=== PATIENT | male | born 1935 | race Caucasian/White ===

== ENCOUNTER 2017-06-19 10:29 | Inpatient (IN) | payer MEDICARE ==
[2017-06-19] MEDS: IV NORMAL SALINE 1000ML BAG 1,000 ML IV ×2 (11:24→12:27)
[2017-06-19] MEDS: ONDANSETRON PF 4 MG/2 ML VIAL. IV (11:25)
[2017-06-19] MEDS: FAMOTIDINE 20 MG/2 ML VIAL IVP (11:26)
[2017-06-19 11:44] LABS: LACTIC ACID 2.7 mmol/L (0.4-2.0)
[2017-06-19 11:49] LABS: FECAL OB PT NEGATIVE (NEG); NEG OBC FOB NEG; POS OBC FOB POS
[2017-06-19 12:03] LABS: ADD MAN DIFF? YES; BASO # 0.1 x10^3/uL (0.0-0.2); BASO % 0 % (0-3); EOS % 0 % (0-3); HEMATOCRIT 37.4 % (39.0-53.0); HEMOGLOBIN 11.6 g/dL (13.0-17.5); LYMPH % 4 % (24-48); MEAN CORPUSCULAR HEMOGLOBIN 23 pg (25-35); MEAN CORPUSCULAR HGB CONC 31 g/dL (31-37); MEAN CORPUSCULAR VOLUME 75 fL (79-100); MONO % 4 % (0-9); NEUT # 23.4 x10^3uL (1.8-7.7); NEUT % 92 % (31-73); PLATELET COUNT 731 x10^3/uL (140-400); RED BLOOD COUNT 4.99 x10^6/uL (4.30-5.70); RED CELL DISTRIBUTION WIDTH 17.2 % (11.5-14.5); WHITE BLOOD COUNT 25.6 x10^3/uL (4.0-11.0)
[2017-06-19 12:10] LABS: INR 1.2 (0.8-1.1); PROTHROMBIN TIME PATIENT 14.4 SEC (11.7-14.0)
[2017-06-19 12:11] LABS: ANION GAP 18 (6-14); BLOOD UREA NITROGEN 62 mg/dL (8-26); BUN/CREATININE RATIO 31 (6-20); CALCIUM 10.2 mg/dL (8.5-10.1); CARBON DIOXIDE 26 mmol/L (21-32); CHLORIDE 106 mmol/L (98-107); GFR 32.2; GLUCOSE 133 mg/dL (70-99); POTASSIUM 3.2 mmol/L (3.5-5.1); SODIUM 150 mmol/L (136-145)
[2017-06-19 12:17] LABS: ALBUMIN 3.5 g/dL (3.4-5.0); ALBUMIN/GLOBULIN RATIO 0.7 (1.0-1.7); ALK PHOS 110 U/L (46-116); ALT (SGPT) 40 U/L (16-63); AST (SGOT) 51 U/L (15-37); LIPASE 121 U/L (73-393); TOTAL BILIRUBIN 0.6 mg/dL (0.2-1.0); TOTAL PROTEIN 8.7 g/dL (6.4-8.2)
[2017-06-19 12:20] LABS: TROPONINI 0.179 ng/mL (0.000-0.055)
[2017-06-19 12:23] LABS: NT-PRO BNP 614 pg/mL (0-449)
[2017-06-19 12:30] LABS: % BANDS 7 % (0-9); % LYMPHS 3 % (24-48); % MONOS 6 % (0-10); % SEGS 84 % (35-66)
[2017-06-19 12:31] LABS: PLT ESTIMATE INCREASED (ADEQUATE)
[2017-06-19 12:32] LABS: ANISOCYTOSIS SLIGHT; HYPOCHROMIA SLIGHT; POLYCHROMASIA SLIGHT
[2017-06-19 12:36] LABS: MICROCYTOSIS PRESENT
[2017-06-19 12:37] LABS: OVALOCYTES PRESENT; SCHISTOCYTES OCC
[2017-06-19] MEDS ORDERED: ONDANSETRON PF 4 MG/2 ML VIAL. IV ×2 (13:30→15:45)
[2017-06-19] MEDS ORDERED: IV DEXTROSE 5% - 0.9 % NACL 1,000 ML IV (13:30)
[2017-06-19 13:40] LABS: BASE EXCESS ABG -3 mmol/L (-3-3); HCO3 ABG 19 mmol/L (21-28); PCO2 ABG 27 mmHg (35-46); PH ABG 7.48 (7.35-7.45); PO2 ABG 79 mmHg (65-108); SAT O2 ABG 95 % (92-99)
[2017-06-19 13:42] LABS: FIO2 ABG 21
[2017-06-19 14:51] LABS: BILIRUBIN,URINE NEGATIVE (NEG); CLARITY,URINE CLEAR; COLOR,URINE YELLOW; GLUCOSE,URINE NEGATIVE (NEG); NITRITE,URINE NEGATIVE (NEG); PH,URINE 5.5; PROTEIN,URINE NEGATIVE (NEG-TRACE); UROBILINOGEN,URINE 0.2 mg/dL (0.2 mg/dL)
[2017-06-19 14:58] LABS: BACTERIA,URINE 0 /HPF (0-FEW); HYALINE CASTS, URINE MODERATE /HPF; RBC,URINE 0 /HPF (0-2)
[2017-06-19] MEDS ORDERED: MORPHINE SULFATE 4 MG/ML DISP.SYRIN. IV (15:45)
[2017-06-19] MEDS ORDERED: DOCUSATE SODIUM 100 MG CAPSULE. PO (15:45)
[2017-06-19] MEDS ORDERED: ACETAMINOPHEN 325 MG TABLET. PO (15:45)
[2017-06-19] MEDS ORDERED: traMADol 50 MG TABLET PO (15:45)
[2017-06-19] MEDS ORDERED: hydrALAZINE 20 MG/ML VIAL. IVP (15:45)
[2017-06-19] MEDS ORDERED: PANTOPRAZOLE SODIUM IV DRIP 80 MG in IV NORMAL SALINE 100ML 100 ML IV (15:45)
[2017-06-19] MEDS ORDERED: HEPARIN PF for SUB-Q USE 5,000 UNIT/0.5 ML VIAL. SQ (16:00)
[2017-06-19 16:40] LABS: ANION GAP 12 (6-14); BLOOD UREA NITROGEN 55 mg/dL (8-26); CALCIUM 8.5 mg/dL (8.5-10.1); CARBON DIOXIDE 23 mmol/L (21-32); CHLORIDE 115 mmol/L (98-107); CREATININE 1.4 mg/dL (0.7-1.3); GFR 48.6; GLUCOSE 126 mg/dL (70-99); POTASSIUM 3.4 mmol/L (3.5-5.1); SODIUM 150 mmol/L (136-145)
[2017-06-19 16:40] LABS: MAGNESIUM 2.6 mg/dL (1.8-2.4)
[2017-06-19 16:49] LABS: TROPONINI 0.172 ng/mL (0.000-0.055)
[2017-06-19] MEDS: PANTOPRAZOLE SODIUM IV DRIP 80 MG in IV NORMAL SALINE 100ML 100 ML IV (16:50)
[2017-06-19 16:53] LABS: LACTIC ACID 0.7 mmol/L (0.4-2.0)
[2017-06-19 19:53] LABS: TROPONINI 0.188 ng/mL (0.000-0.055)
[2017-06-19] MEDS: POTASSIUM CL 20MEQ IN D5W 1,000 ML IV (20:23)
[2017-06-20] MEDS: PANTOPRAZOLE SODIUM IV DRIP 80 MG in IV NORMAL SALINE 100ML 100 ML IV ×3 (00:40→22:44)
[2017-06-20] MEDS: POTASSIUM CL 20MEQ IN D5W 1,000 ML IV ×3 (02:00→22:45)
[2017-06-20 09:16] LABS: ADD MAN DIFF? NO
[2017-06-20 09:23] LABS: BASO % 0 % (0-3); EOS % 0 % (0-3); HEMATOCRIT 32.8 % (39.0-53.0); HEMOGLOBIN 10.1 g/dL (13.0-17.5); LYMPH # 2.2 x10^3/uL (1.0-4.8); LYMPH % 12 % (24-48); MEAN CORPUSCULAR HEMOGLOBIN 23 pg (25-35); MEAN CORPUSCULAR HGB CONC 31 g/dL (31-37); MEAN CORPUSCULAR VOLUME 76 fL (79-100); MONO # 1.2 x10^3/uL (0.0-1.1); MONO % 7 % (0-9); NEUT # 14.6 x10^3uL (1.8-7.7); NEUT % 81 % (31-73); PLATELET COUNT 605 x10^3/uL (140-400); RED BLOOD COUNT 4.33 x10^6/uL (4.30-5.70); RED CELL DISTRIBUTION WIDTH 17.5 % (11.5-14.5); WHITE BLOOD COUNT 18.1 x10^3/uL (4.0-11.0)
[2017-06-20 09:36] LABS: ANION GAP 11 (6-14); BLOOD UREA NITROGEN 43 mg/dL (8-26); CALCIUM 9.1 mg/dL (8.5-10.1); CARBON DIOXIDE 24 mmol/L (21-32); CHLORIDE 112 mmol/L (98-107); CREATININE 1.4 mg/dL (0.7-1.3); GFR 48.6; GLUCOSE 108 mg/dL (70-99); POTASSIUM 4.1 mmol/L (3.5-5.1); SODIUM 147 mmol/L (136-145)
[2017-06-20 12:43] LABS: SEDIMENTATION RATE 36 (0-15)
[2017-06-21 06:44] LABS: ANION GAP 8 (6-14); BLOOD UREA NITROGEN 30 mg/dL (8-26); CALCIUM 8.6 mg/dL (8.5-10.1); CARBON DIOXIDE 24 mmol/L (21-32); CHLORIDE 112 mmol/L (98-107); CREATININE 1.2 mg/dL (0.7-1.3); GFR 58.1; GLUCOSE 87 mg/dL (70-99); POTASSIUM 3.7 mmol/L (3.5-5.1); SODIUM 144 mmol/L (136-145)
[2017-06-21] MEDS ORDERED: MORPHINE SULFATE 4 MG/ML DISP.SYRIN. IV (07:00)
[2017-06-21] MEDS ORDERED: fentaNYL PF VIAL 100 MCG/2 ML VIAL IV ×4 (07:00)
[2017-06-21] MEDS ORDERED: LIDOCAINE 1% PF 2 ML VIAL. ID ×2 (07:00)
[2017-06-21] MEDS ORDERED: ONDANSETRON PF 4 MG/2 ML VIAL. IV (07:00)
[2017-06-21] MEDS ORDERED: MIDAZOLAM HCL/PF 2 MG/2 ML VIAL. IV (07:00)
[2017-06-21] MEDS ORDERED: PROCHLORPERAZINE 10 MG/2 ML VIAL. IV (07:00)
[2017-06-21] MEDS: IV RINGERS,LACTATED 1000ML 1,000 ML IV ×3 (07:00→14:47)
[2017-06-21] MEDS ORDERED: PROPOFOL 20 ML IV ×2 (07:03→07:31)
[2017-06-21] MEDS: POTASSIUM CL 20MEQ IN D5W 1,000 ML IV ×2 (08:00→20:03)
[2017-06-21] MEDS: PANTOPRAZOLE SODIUM IV DRIP 80 MG in IV NORMAL SALINE 100ML 100 ML IV (08:00)
[2017-06-21] MEDS: SUCRALFATE 1 GM/10 ML ORAL.SUSP. PO ×3 (10:24→17:21)
[2017-06-21 12:32] LABS: HEMATOCRIT 29.6 % (39.0-53.0); HEMOGLOBIN 9.1 g/dL (13.0-17.5); MEAN CORPUSCULAR HEMOGLOBIN 24 pg (25-35); MEAN CORPUSCULAR HGB CONC 31 g/dL (31-37); MEAN CORPUSCULAR VOLUME 77 fL (79-100); PLATELET COUNT 448 x10^3/uL (140-400); RED BLOOD COUNT 3.85 x10^6/uL (4.30-5.70); RED CELL DISTRIBUTION WIDTH 17.7 % (11.5-14.5)
[2017-06-21] MEDS: PANTOPRAZOLE 40 MG TABLET.DR. PO (17:21)
[2017-06-22] MEDS: POTASSIUM CL 20MEQ IN D5W 1,000 ML IV (04:33)
[2017-06-22] MEDS: SUCRALFATE 1 GM/10 ML ORAL.SUSP. PO ×2 (06:37→12:02)
[2017-06-22] MEDS: PANTOPRAZOLE 40 MG TABLET.DR. PO (08:11)
== END 2017-06-22 12:42 | disposition home or self-care (01) | DRG 377 ==
LOC: ER 10:29 → 6 SOUTH 11:00
PROC: 0DB58ZX Excision of Esophagus, Via Natural or Artificial Opening Endoscopic, Diagnostic (ICD-10-PCS; principal; 2017-06-21 07:28)
PROC: 0DB68ZX Excision of Stomach, Via Natural or Artificial Opening Endoscopic, Diagnostic (ICD-10-PCS; 2017-06-21 07:28)
DX: K25.4 Chronic or unspecified gastric ulcer with hemorrhage (principal); N17.0 Acute kidney failure with tubular necrosis; E87.0 Hyperosmolality and hypernatremia; E87.2 Acidosis; K22.10 Ulcer of esophagus without bleeding; E86.0 Dehydration; K29.70 Gastritis, unspecified, without bleeding; D50.9 Iron deficiency anemia, unspecified; D72.829 Elevated white blood cell count, unspecified; E87.6 Hypokalemia; I10 Essential (primary) hypertension; K44.9 Diaphragmatic hernia without obstruction or gangrene; M06.9 Rheumatoid arthritis, unspecified; T39.395A Adverse effect of other nonsteroidal anti-inflammatory drugs [NSAID], initial encounter; N40.0 Benign prostatic hyperplasia without lower urinary tract symptoms; Z79.1 Long term (current) use of non-steroidal anti-inflammatories (NSAID); Z90.79 Acquired absence of other genital organ(s)
CPT/HCPCS: 36415; 36600; 51702; 71045; 74176; 80048; 80053; 81001; 82274; 82805; 83605; 83690; 83735; 83880; 84484; 85007; 85025; 85027; 85610; 85651; 87040; 88305; 88342; 93005; 96361; 96374; 96375; 97161-GP; 97165-GO; 99285-25; C9113; J2405; J2704; J7030; J7042; J7120; S0028

== ENCOUNTER 2021-07-12 05:42 | Inpatient (IN) | payer MEDICARE ==
[2021-07-12] VITALS (23 sets, daily range): BP systolic 54–169; BP diastolic 34–80
[~2021-07-12] VITALS: Ht 162.6 cm; Wt 79.6 kg
[~2021-07-12 05:42] MED LIST: IRBE1TAB PO; Pantoprazole PO; SUCR1ORA5 PO
[2021-07-12] MEDS ORDERED: ONDANSETRON PF 4 MG/2 ML VIAL. IVP PRN ×2 (06:15→12:15)
[2021-07-12] MEDS ORDERED: MORPHINE SULFATE 2 MG/ML INJ. IVP PRN ×2 (06:15→08:00)
[2021-07-12] MEDS: IV NORMAL SALINE 1000ML BAG 1,000 ML IV SCH ×3 (06:57→19:35)
[2021-07-12] MEDS: cefTRIAXone IV Push 2 GM VIAL. IVP SCH (07:00)
[2021-07-12] MEDS ORDERED: PROPOFOL 10 MG/ML (20ML) VIAL. IV ONE (07:43)
[2021-07-12] MEDS ORDERED: DEXAMETHASONE SOD PHOS 4 MG/ML VIAL ONE (07:43)
[2021-07-12] MEDS ORDERED: ONDANSETRON PF 4 MG/2 ML VIAL. ONE (07:43)
[2021-07-12] MEDS ORDERED: SUCCINYLCHOLINE 200 MG/10 ML VIAL. ONE (07:44)
[2021-07-12] MEDS ORDERED: MIDAZOLAM HCL/PF 2 MG/2 ML VIAL. ONE (07:44)
[2021-07-12] MEDS ORDERED: NEOSTIGMINE METHYLSULFATE 5 MG/5 ML SYRINGE. ONE (07:44)
[2021-07-12] MEDS ORDERED: fentaNYL PF VIAL 100 MCG/2 ML VIAL ONE (07:44)
[2021-07-12] MEDS ORDERED: ROCURONIUM 50 MG/5 ML VIAL. ONE (07:44)
[2021-07-12] MEDS ORDERED: GLYCOPYRROLATE 1 MG/5 ML VIAL. ONE (07:45)
--- NOTE | 2021-07-12 07:53 | PDOC2 ---
CONSULT Date of Consult Date of Consult DATE: 07/12/21 TIME: 07:44 Reason for Consult Reason for Consult: pneumoperitoneum Referring Physician Referring Physician: Dr. Puckett, Dr. Cazares Identification/Chief Complaint Chief Complaint abd pain Source Source: Chart review, Patient History of Present Illness Reason for Visit: 85 yo M presents with c/o diffuse abd pain. Pt recently admitted for rib fractures secondary to fall. Pt with known large hiatal hernia. CT concerning for pneumoperitoneum. Pt seen in ER. C/o abd pain, but somewhat poor historian. Past Medical History Cardiovascular: HTN GI: Gastritis, Peptic Ulcer disease Rheumatologic: Rheumatoid arthritis Renal/: Prostate Ca. (suspect metastatic) Past Surgical History Past Surgical History: Hernia Repair Family History Family History: No Significant Social History No ALCOHOL: none Drugs: None Current Medications Current Medications Current Medications Ceftriaxone Sodium (Rocephin) 2 gm Q24H IVP Last administered on 07/12/21at 07:00; Start 07/12/21 at 07:00 Metronidazole 100 ml @ 100 mls/hr Q8HRS IV ; Start 07/12/21 at 14:00 Morphine Sulfate (Morphine Sulfate) 4 mg PRN Q4HRS PRN IVP SEVERE PAIN 7-10 Last administered on 07/12/21at 06:59; Start 07/12/21 at 06:15 Ondansetron HCl (Zofran) 4 mg PRN Q4HRS PRN IVP NAUSEA/VOMITING 1ST CHOICE Last administered on 07/12/21at 07:02; Start 07/12/21 at 06:15 Sodium Chloride 1,000 ml @ 150 mls/hr Q6H40M IV Last administered on 07/12/21at 06:57; Start 07/12/21 at 06:15 Piperacillin Sod/ Tazobactam Sod 2.25 gm/Sodium Chloride 50 ml @ 100 mls/hr Q8HRS IV ; Start 07/12/21 at 14:00 Active Scripts Active [Pantoprazole] 40 MG Tablet.dr 40 Mg PO BIDBFRMEAL Carafate (Sucralfate) 1 Gm/10 Ml Oral.susp 1 Gm PO TIDBFRMEAL Reported Avalide 150-12.5 Mg Tablet (Irbesartan/Hydrochlorothiazide) 1 Each Tablet 1 Each PO DAILY Allergies Allergies: Coded Allergies: No Known Drug Allergies (Unverified , 06/21/17) ROS Gastrointestinal: Yes Abdominal Pain Physical Exam General: Alert, Cooperative, severe distress HEENT: Atraumatic Lungs: Normal air movement Abdomen: Other (firm distended, diffuse TTP) Extremities: No clubbing, No cyanosis Skin: No rashes, No breakdown Neuro: Normal speech, Sensation intact Psych/Mental Status: Mental status NL, Mood NL Vitals VITALS Vital Signs Date Time Temp Pulse Resp B/P (MAP) Pulse Ox O2 Delivery O2 Flow Rate FiO2 07/12/21 07:29 20 Nasal Cannula 2.0 07/12/21 06:59 96 07/12/21 06:00 107 100/62 (75) Images Images CT with pneumoperitoneum, suspected diffuse metastasis, suspected perforated viscous in duodenum, extravasation of contrast Assessment/Plan Assessment/Plan perforated viscous, favor secondary to pyloric channel ulcer TO OR for xlap and repair. May include reduction of gastric volvulus, given concern for ischemia. R/R/B/A d/w pt and pt's son on phone. Risks, including, but not limited to: bleeding, infection, damage to surrounding structures, risk of anesthesia. Pt is at high risk for perioperative complications secondary to age, fragility, metastatic cancer and concern for gastric ischemia. The son appears to under stand, his questions are answered and he elects to proceed. Thanks for consult! STEVEN ZENDEJAS MD Jul 12, 2021 07:53
[2021-07-12] MEDS ORDERED: PROCHLORPERAZINE 10 MG/2 ML VIAL. IVP PRN (08:00)
[2021-07-12] MEDS ORDERED: HYDROmorphone 2 MG/ML INJ. IVP PRN (08:00)
[2021-07-12] MEDS ORDERED: IV RINGERS,LACTATED 1000ML 1,000 ML IV SCH (08:00)
[2021-07-12] MEDS ORDERED: fentaNYL PF VIAL 100 MCG/2 ML VIAL IVP PRN ×2 (08:00)
[2021-07-12] MEDS ORDERED: ALBUMIN HUMAN 5% 500 ML IV ONE ×4 (08:15→12:45)
[2021-07-12 08:30] LABS: BASO % 0 % (0-3); EOS % 1 % (0-3); HEMATOCRIT 52.6 % (39.0-53.0); HEMOGLOBIN 17.5 g/dL (13.0-17.5); LYMPH # 0.6 x10^3/uL (1.0-4.8); LYMPH % 19 % (24-48); MEAN CORPUSCULAR HEMOGLOBIN 29 pg (25-35); MEAN CORPUSCULAR HGB CONC 33 g/dL (31-37); MEAN CORPUSCULAR VOLUME 87 fL (79-100); MONO # 0.2 x10^3/uL (0.0-1.1); MONO % 6 % (0-9); NEUT # 2.3 x10^3/uL (1.8-7.7); NEUT % 73 % (31-73); PLATELET COUNT 316 x10^3/uL (140-400); RED BLOOD COUNT 6.02 x10^6/uL (4.30-5.70); RED CELL DISTRIBUTION WIDTH 14.6 % (11.5-14.5); WHITE BLOOD COUNT 3.2 x10^3/uL (4.0-11.0)
[2021-07-12] MEDS ORDERED: ETOMIDATE 20 MG/10 ML VIAL. IV ONE (08:30)
[2021-07-12 09:00] LABS: ALBUMIN 2.5 g/dL (3.4-5.0); ALBUMIN/GLOBULIN RATIO 0.6 (1.0-1.7); CALCIUM 8.3 mg/dL (8.5-10.1); CREATININE 2.3 mg/dL (0.7-1.3); GFR 27.2; TOTAL BILIRUBIN 1.1 mg/dL (0.2-1.0); TOTAL PROTEIN 6.8 g/dL (6.4-8.2)
[2021-07-12 09:02] LABS: POTASSIUM 4.5 mmol/L (3.5-5.1)
[2021-07-12] MEDS ORDERED: ROCURONIUM 100 MG/10 ML VIAL. ONE (09:34)
[2021-07-12 09:56] LABS: BASE EXCESS ABG -9 mmol/L (-3-3); HCO3 ABG 16 mmol/L (21-28); PCO2 ABG 33 mmHg (35-46); PO2 ABG 200 mmHg (65-108); SAT O2 ABG 99 % (92-99)
[2021-07-12 09:58] LABS: FIO2 ABG 100% OR VENT
[2021-07-12] MEDS ORDERED: PHENYLEPHRINE 10 MG/ML VIAL. ONE ×2 (10:27→11:54)
[2021-07-12] MEDS ORDERED: PHENYLEPHRINE in 0.9% NACL PF 1 MG/10 ML SYRINGE. IV ONE (10:27)
[2021-07-12] MEDS ORDERED: ePHEDrine PF IN SALINE 50 MG/10 ML SYRINGE. IV ONE (10:27)
[2021-07-12] MEDS ORDERED: NALOXONE 0.4 MG/ML VIAL. IV PRN (12:15)
[2021-07-12] MEDS ORDERED: 0.9 % SODIUM CHLORIDE 10 ML DISP.SYRIN. IV PRN (12:15)
[2021-07-12] MEDS ORDERED: IV NORMAL SALINE 1000ML BAG 1,000 ML IV SCH (12:15)
[2021-07-12] MEDS ORDERED: MORPHINE SULFATE 2 MG/ML INJ. IV PRN (12:15)
--- NOTE | 2021-07-12 12:24 | PDOC4 ---
OPERATIVE NOTE Date: Date: Jul 12, 2021 Pre-Op Diagnosis: Pneumoperitoneum Post-Op Diagnosis: same, hiatal hernia with gastric volvulus, metastatic masses Procedure Performed: Exploratory laparotomy, reduction of gastric volvulus, hiatal hernia repair, gastrostomy tube placement, excisional biopsy of small bowel mesentery mass, duodenostomy tube placement of perforated duodenal ulcer, EGD, umbilical hernia repair Surgeon: Carlton Zendejas Anesthesia Type: GETA Blood Loss: 200 Specimans Obtained: small bowel mass Findings: pneumoperitoneum, large hiatal hernia with incarcerated gastric volvulus, stomach with ischemic changes, but became viable with reduction, perforated duodenal/pyloric channel ulcer, 1 cm; normal small bowel, colon, appendix, gallbladder, multiple dark purple masses throughout abdominal cavity, spleen and liver; EGD with retained fluid but no obvious masses Complications: none Operative Note: After obtaining informed consent, patient was taken to OR, induced under GETA and prepped in the usual fashion. Midline incision was made with cautery. Umbilical hernia encountered, divided and repaired at fascial closing. Pneumoperitoneum and hemoperitoneum encountered and evacuated. Abdominal cavity was explored and noted as above. Stomach was reduced out of chest cavity and appeared to gain viability. OGT introduced. Hiatus reduced with multiple 0 neurolon sutures. 2 cm defect remained. 24 Gastrostomy tube placed in anterior upper stomach through 3 0 vicryl pursestring. Tacked to anterior abdominal wall with multiple 3 0 vicryl. Lesser sac entered and posterior stomach evaluated. Large amount of debris here but defect not identified. EGD introduced which demonstrated normal esophagus and stomach, but large amount of debris. This helped to identified air leak in duodenum. Duodenum kocherized and demonstrated 1 cm defect in superior posterior duodenum, 1st portion vs pyloric channel. Given overall contamenation and patient overall condition, favored against ford patch repair. No obvious stricture noted pending clearing of adhesions related to gastric volvulus. 20 F duodenostomy tube placed through 3 0 vicryl pursestring and tacked to abdominal wall with 3 0 vicryl. Copious irrigation. No evidence of bleeding or other pathology at time of closure. One of small bowel masses was excised off of mesentery using ligasure and sent to pathology. Fascia repaired with 0 looped PDS. Skin repaired with 3 0 vicryl and 4 0 monocryl. Tubes secured with 3 0 nylons. Dressing placed. Patient tolerated procedure but remains critically ill, transferred to ICU in intubated condition on some pressors. STEVEN ZENDEJAS MD Jul 12, 2021 12:24
[2021-07-12] MEDS ORDERED: POLYVINYL ALCOHOL 1.4% OPHTH SOLUTION 15ML BOTTLE. OU PRN (12:45)
[2021-07-12] MEDS ORDERED: MIDAZOLAM 100mg/100ml NS BAG 100 ML IV PRN (12:45)
[2021-07-12] MEDS ORDERED: PROPOFOL 100 ML IV PRN (12:45)
[2021-07-12 12:56] LABS: BASE EXCESS ABG -9 mmol/L (-3-3); HCO3 ABG 17 mmol/L (21-28); PCO2 ABG 39 mmHg (35-46); PO2 ABG 80 mmHg (65-108); SAT O2 ABG 95 % (92-99)
--- NOTE | 2021-07-12 12:58 | RAD ---
EXAMINATION: XR ABDOMEN 1V CLINICAL HISTORY: Postoperative evaluation. TECHNIQUE: XR ABDOMEN 1V COMPARISON: Acute abdominal series 07/11/2021 FINDINGS/ IMPRESSION: Surgical drains in the mid right hemiabdomen and left upper quadrant. Postsurgical ill-defined free i ntraperitoneal air. Scattered bowel gas. Residual contrast in the urinary bladder. Left pelvic surgic al clips. Thoracolumbar degenerative changes and dextroconvex curvature. Electronically signed by: Bello Groves DO (07/12/2021 12:55 PM) HENRY
[2021-07-12] MEDS ORDERED: PROPOFOL 10 MG/ML (100ML) VIAL. IV ONE (13:00)
[2021-07-12 13:01] LABS: FIO2 ABG 50% AC 20 400 5
[2021-07-12 13:24] LABS: BASO % 0 % (0-3); EOS % 0 % (0-3); HEMATOCRIT 49.9 % (39.0-53.0); HEMOGLOBIN 16.4 g/dL (13.0-17.5); LYMPH # 0.6 x10^3/uL (1.0-4.8); LYMPH % 17 % (24-48); MEAN CORPUSCULAR HEMOGLOBIN 29 pg (25-35); MEAN CORPUSCULAR HGB CONC 33 g/dL (31-37); MEAN CORPUSCULAR VOLUME 88 fL (79-100); MONO # 0.3 x10^3/uL (0.0-1.1); MONO % 8 % (0-9); NEUT # 2.6 x10^3/uL (1.8-7.7); NEUT % 75 % (31-73); PLATELET COUNT 246 x10^3/uL (140-400); RED BLOOD COUNT 5.69 x10^6/uL (4.30-5.70); RED CELL DISTRIBUTION WIDTH 14.8 % (11.5-14.5); WHITE BLOOD COUNT 3.5 x10^3/uL (4.0-11.0)
[2021-07-12] MEDS ORDERED: SODIUM BICARB ADULT 8.4% 50 MEQ/50 ML DISP.SYRIN. ONE ×2 (13:28→21:15)
--- NOTE | 2021-07-12 13:31 | PDOC ---
PULMONARY PROGRESS NOTES DATE: 07/12/21 TIME: 13:30 Vitals Vital Signs Date Time Temp Pulse Resp B/P (MAP) Pulse Ox O2 Delivery O2 Flow Rate FiO2 07/12/21 12:35 99 Ventilator 07/12/21 08:00 110 30 99/63 (75) 2.0 07/12/21 05:30 97.5 97.5 Lungs: Clear Labs Laboratory Tests Test 07/12/21 08:15 07/12/21 09:05 07/12/21 09:25 07/12/21 12:52 White Blood Count 3.2 x10^3/uL (4.0-11.0) 3.5 x10^3/uL (4.0-11.0) Red Blood Count 6.02 x10^6/uL (4.30-5.70) 5.69 x10^6/uL (4.30-5.70) Hemoglobin 17.5 g/dL (13.0-17.5) 16.4 g/dL (13.0-17.5) Hematocrit 52.6 % (39.0-53.0) 49.9 % (39.0-53.0) Mean Corpuscular Volume 87 fL (79-100) 88 fL (79-100) Mean Corpuscular Hemoglobin 29 pg (25-35) 29 pg (25-35) Mean Corpuscular Hemoglobin Concent 33 g/dL (31-37) 33 g/dL (31-37) Red Cell Distribution Width 14.6 % (11.5-14.5) 14.8 % (11.5-14.5) Platelet Count 316 x10^3/uL (140-400) 246 x10^3/uL (140-400) Neutrophils (%) (Auto) 73 % (31-73) 75 % (31-73) Lymphocytes (%) (Auto) 19 % (24-48) 17 % (24-48) Monocytes (%) (Auto) 6 % (0-9) 8 % (0-9) Eosinophils (%) (Auto) 1 % (0-3) 0 % (0-3) Basophils (%) (Auto) 0 % (0-3) 0 % (0-3) Neutrophils # (Auto) 2.3 x10^3/uL (1.8-7.7) 2.6 x10^3/uL (1.8-7.7) Lymphocytes # (Auto) 0.6 x10^3/uL (1.0-4.8) 0.6 x10^3/uL (1.0-4.8) Monocytes # (Auto) 0.2 x10^3/uL (0.0-1.1) 0.3 x10^3/uL (0.0-1.1) Eosinophils # (Auto) 0.0 x10^3/uL (0.0-0.7) 0.0 x10^3/uL (0.0-0.7) Basophils # (Auto) 0.0 x10^3/uL (0.0-0.2) 0.0 x10^3/uL (0.0-0.2) Sodium Level 136 mmol/L (136-145) Potassium Level 4.5 mmol/L (3.5-5.1) Chloride Level 101 mmol/L (98-107) Carbon Dioxide Level 21 mmol/L (21-32) Anion Gap 14 (6-14) Blood Urea Nitrogen 48 mg/dL (8-26) Creatinine 2.3 mg/dL (0.7-1.3) Estimated GFR (Cockcroft-Gault) 27.2 BUN/Creatinine Ratio 21 (6-20) Glucose Level 119 mg/dL (70-99) Calcium Level 8.3 mg/dL (8.5-10.1) Total Bilirubin 1.1 mg/dL (0.2-1.0) Aspartate Amino Transf (AST/SGOT) 58 U/L (15-37) Alanine Aminotransferase (ALT/SGPT) 44 U/L (16-63) Alkaline Phosphatase 70 U/L (46-116) Lactate Dehydrogenase 524 U/L (85-227) Total Protein 6.8 g/dL (6.4-8.2) Albumin 2.5 g/dL (3.4-5.0) Albumin/Globulin Ratio 0.6 (1.0-1.7) Lactic Acid Level 2.7 mmol/L (0.4-2.0) O2 Saturation 99 % (92-99) Arterial Blood pH 7.32 (7.35-7.45) Arterial Blood pCO2 at Patient Temp 33 mmHg (35-46) Arterial Blood pO2 at Patient Temp 200 mmHg (65-108) Arterial Blood HCO3 16 mmol/L (21-28) Arterial Blood Base Excess -9 mmol/L (-3-3) FiO2 100% or vent Test 07/12/21 12:55 O2 Saturation 95 % (92-99) Arterial Blood pH 7.27 (7.35-7.45) Arterial Blood pCO2 at Patient Temp 39 mmHg (35-46) Arterial Blood pO2 at Patient Temp 80 mmHg (65-108) Arterial Blood HCO3 17 mmol/L (21-28) Arterial Blood Base Excess -9 mmol/L (-3-3) FiO2 50% ac 20 400 5 Glucose (Fingerstick) 104 mg/dL (70-99) Laboratory Tests Test 07/12/21 08:15 07/12/21 09:05 07/12/21 09:25 07/12/21 12:52 White Blood Count 3.2 x10^3/uL (4.0-11.0) 3.5 x10^3/uL (4.0-11.0) Red Blood Count 6.02 x10^6/uL (4.30-5.70) 5.69 x10^6/uL (4.30-5.70) Hemoglobin 17.5 g/dL (13.0-17.5) 16.4 g/dL (13.0-17.5) Hematocrit 52.6 % (39.0-53.0) 49.9 % (39.0-53.0) Mean Corpuscular Volume 87 fL (79-100) 88 fL (79-100) Mean Corpuscular Hemoglobin 29 pg (25-35) 29 pg (25-35) Mean Corpuscular Hemoglobin Concent 33 g/dL (31-37) 33 g/dL (31-37) Red Cell Distribution Width 14.6 % (11.5-14.5) 14.8 % (11.5-14.5) Platelet Count 316 x10^3/uL (140-400) 246 x10^3/uL (140-400) Neutrophils (%) (Auto) 73 % (31-73) 75 % (31-73) Lymphocytes (%) (Auto) 19 % (24-48) 17 % (24-48) Monocytes (%) (Auto) 6 % (0-9) 8 % (0-9) Eosinophils (%) (Auto) 1 % (0-3) 0 % (0-3) Basophils (%) (Auto) 0 % (0-3) 0 % (0-3) Neutrophils # (Auto) 2.3 x10^3/uL (1.8-7.7) 2.6 x10^3/uL (1.8-7.7) Lymphocytes # (Auto) 0.6 x10^3/uL (1.0-4.8) 0.6 x10^3/uL (1.0-4.8) Monocytes # (Auto) 0.2 x10^3/uL (0.0-1.1) 0.3 x10^3/uL (0.0-1.1) Eosinophils # (Auto) 0.0 x10^3/uL (0.0-0.7) 0.0 x10^3/uL (0.0-0.7) Basophils # (Auto) 0.0 x10^3/uL (0.0-0.2) 0.0 x10^3/uL (0.0-0.2) Sodium Level 136 mmol/L (136-145) Potassium Level 4.5 mmol/L (3.5-5.1) Chloride Level 101 mmol/L (98-107) Carbon Dioxide Level 21 mmol/L (21-32) Anion Gap 14 (6-14) Blood Urea Nitrogen 48 mg/dL (8-26) Creatinine 2.3 mg/dL (0.7-1.3) Estimated GFR (Cockcroft-Gault) 27.2 BUN/Creatinine Ratio 21 (6-20) Glucose Level 119 mg/dL (70-99) Calcium Level 8.3 mg/dL (8.5-10.1) Total Bilirubin 1.1 mg/dL (0.2-1.0) Aspartate Amino Transf (AST/SGOT) 58 U/L (15-37) Alanine Aminotransferase (ALT/SGPT) 44 U/L (16-63) Alkaline Phosphatase 70 U/L (46-116) Lactate Dehydrogenase 524 U/L (85-227) Total Protein 6.8 g/dL (6.4-8.2) Albumin 2.5 g/dL (3.4-5.0) Albumin/Globulin Ratio 0.6 (1.0-1.7) Lactic Acid Level 2.7 mmol/L (0.4-2.0) O2 Saturation 99 % (92-99) Arterial Blood pH 7.32 (7.35-7.45) Arterial Blood pCO2 at Patient Temp 33 mmHg (35-46) Arterial Blood pO2 at Patient Temp 200 mmHg (65-108) Arterial Blood HCO3 16 mmol/L (21-28) Arterial Blood Base Excess -9 mmol/L (-3-3) FiO2 100% or vent Test 07/12/21 12:55 O2 Saturation 95 % (92-99) Arterial Blood pH 7.27 (7.35-7.45) Arterial Blood pCO2 at Patient Temp 39 mmHg (35-46) Arterial Blood pO2 at Patient Temp 80 mmHg (65-108) Arterial Blood HCO3 17 mmol/L (21-28) Arterial Blood Base Excess -9 mmol/L (-3-3) FiO2 50% ac 20 400 5 Glucose (Fingerstick) 104 mg/dL (70-99) Medications Active Scripts Medications Dose Route/Sig Max Daily Dose Days Date Category [Pantoprazole] 40 MG Tablet.dr 40 Mg PO BIDBFRMEAL 06/22/17 Rx Carafate (Sucralfate) 1 Gm/10 Ml Oral.susp 1 Gm PO TIDBFRMEAL 06/22/17 Rx Avalide 150-12.5 Mg Tablet (Irbesartan/Hydrochlorothiazide) 1 Each Tablet 1 Each PO DAILY 06/19/17 Reported Impression . Full consult to follow Patient examined, chart reviewed Currently severely acidotic secondary to sepsis, hypotension, recent surgery Patient given IV sodium bicarb Starts bicarb drip Increase minute ventilation Discussed with RN, RT. Continue pressors for mean arterial pressure above 60 Bolus with albumin Empiric antibiotics \ ANTELMO ANAND MD Jul 12, 2021 13:31
[2021-07-12 13:36] LABS: CALCIUM 7.6 mg/dL (8.5-10.1); CREATININE 1.9 mg/dL (0.7-1.3); GFR 33.9; POTASSIUM 3.8 mmol/L (3.5-5.1)
[2021-07-12] MEDS ORDERED: SODIUM BICARB ADULT 8.4% 50 MEQ/50 ML DISP.SYRIN. IV ONE (13:45)
--- NOTE | 2021-07-12 14:02 | RAD ---
Single view chest dated 07/12/2021 1:58 PM: COMPARISON: 06/19/2017 Clinical Indication: Ventilator dependent. Findings: Single upright portable exam of the chest was performed. Heart and mediastinal contours are stable. T here is patchy and linear perihilar opacity with blunting of left costophrenic sulcus, new from prior study. No pneumothorax. Endotracheal tube tip approximately 3.2 cm above the level the ti. Inter face at the upper right chest, likely a prominent skinfold. Sclerotic changes of the right humeral he ad, unchanged progressive erosive changes at the undersurface of the right acromium suggesting chroni c rotator cuff tear and/or impingement. IMPRESSION: 1. Patchy bibasilar airspace disease, atelectasis versus pneumonia. There is a small left pleural eff usion. 2. Endotracheal tube tip at mid trachea. Electronically signed by: Adan Galindo MD (07/12/2021 2:00 PM) [id number]
[2021-07-12] MEDS ORDERED: fentaNYL PF VIAL 100 MCG/2 ML VIAL IVP ONE (14:15)
[2021-07-12] MEDS: SODIUM BICARBONATE VIAL 150 MEQ in IV DEXTROSE 5% 1,000 ML IV SCH (14:18)
--- NOTE | 2021-07-12 14:57 | RAD ---
EXAMINATION: XR CHEST 1V CLINICAL HISTORY: Post CVC insertion. TECHNIQUE: XR CHEST 1V COMPARISON: 07/12/2021 1:15 PM FINDINGS/ IMPRESSION: Interval placement of left subclavian central venous catheter terminating in the upper SVC. Endotrach eal tube remains in similar position. Remainder of the study otherwise unchanged. Electronically signed by: Bello Groves DO (07/12/2021 2:55 PM) [facility]
--- NOTE | 2021-07-12 15:00 | NUR ---
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 Blood pressure very labile. Central line placed in OR was accidently removed with transfer from OR to ICU bed. R wrist 20g available for all medications, some medications not compatible. Multiple attempts at PIV by RN x 2. R AC IV removed in OR/ R Brachial arterial line placed in OR. Anesthesia states multiple attempts at arterial line. Anesthesia made aware of arterial line leaking, minor swelling around insertion site. Wave form and readings were consistent with working arterial line. WIll continue to monitor. Anesthesia replaced central line at bedside, aware of titrations of medications and non compatibility. Patient unstable, requiring rapid titration of levophed d/t sustained MAP <65 beginning at 1245. Starting rate at 0.1 mcg/kg/min and patient stabilized at 1500 with MAP >65 with gtt currently infusing at .05 mcg/kg/min; the max rate during this time was 2 mcg/kg/min of medication administered during charting block which ended at 1500. Sedation rapidly titrated to keep pt comfortable/stable
--- NOTE | 2021-07-12 16:00 | NUR ---
Pt hemodynamically unstable with turning. Resume q2 hour turning when hemodynamically stable. Dr Puckett aware
--- NOTE | 2021-07-12 17:03 | PDOC ---
PROGRESS NOTE DATE OF SERVICE: DATE: 07/12/21 TIME: 16:59 OBJECTIVE: Vital Signs: Vital Signs Date Time Temp Pulse Resp B/P (MAP) Pulse Ox O2 Delivery O2 Flow Rate FiO2 07/12/21 16:45 106 24 88/46 98 07/12/21 16:00 106 24 104/56 90 07/12/21 16:00 85 07/12/21 15:27 100 Ventilator 07/12/21 15:00 106 24 78/46 90 07/12/21 14:30 106 24 104/52 90 07/12/21 14:17 24 96 Ventilator 07/12/21 14:00 106 24 88/46 90 07/12/21 13:48 24 99 Ventilator 2.0 07/12/21 13:45 106 24 54/34 90 07/12/21 13:15 106 24 81/49 90 07/12/21 13:00 112 24 154/80 94 07/12/21 12:45 97.5 114 24 169/63 97 97.5 07/12/21 12:35 99 Ventilator 07/12/21 08:00 110 30 99/63 (75) 95 Nasal Cannula 2.0 07/12/21 07:29 20 Nasal Cannula 2.0 07/12/21 07:05 102 23 91/59 (70) 96 Nasal Cannula 2.0 07/12/21 07:00 100 22 78/57 (64) 95 Nasal Cannula 2.0 07/12/21 06:59 18 96 Nasal Cannula 2.0 07/12/21 06:00 107 20 100/62 (75) 96 Nasal Cannula 2.0 07/12/21 05:30 97.5 107 20 98/66 (77) 96 Nasal Cannula 2.0 97.5 I & O Intake and Output 07/12/21 07:00 Intake Total 0 ml Output Total 0 ml Balance 0 ml Intake Oral 0 ml Output Urine Total 0 ml PHYSICAL EXAM: Physical Exam: General: Pleasant, no acute distress, well groomed Eyes: conjunctiva anicteric, eyes full range of motion ENT: moist oral mucosa, normal dentition Neck: Trachea midline, no masses Respiratory: unlabored breathing, not using accessory muscles, no crackles or wheezes Cardiovascular: Regular rate and rhythm, no peripheral edema Abdomen: nontender, nondistended, no hepatosplenomegaly, no masses Skin: no rashes or skin lesions on visualized skin Psych: normal mood, affect. Alert and oriented x 3. LABS: Laboratory Tests Test 07/12/21 08:15 07/12/21 09:05 07/12/21 09:25 07/12/21 12:52 White Blood Count 3.2 x10^3/uL (4.0-11.0) 3.5 x10^3/uL (4.0-11.0) Red Blood Count 6.02 x10^6/uL (4.30-5.70) 5.69 x10^6/uL (4.30-5.70) Hemoglobin 17.5 g/dL (13.0-17.5) 16.4 g/dL (13.0-17.5) Hematocrit 52.6 % (39.0-53.0) 49.9 % (39.0-53.0) Mean Corpuscular Volume 87 fL (79-100) 88 fL (79-100) Mean Corpuscular Hemoglobin 29 pg (25-35) 29 pg (25-35) Mean Corpuscular Hemoglobin Concent 33 g/dL (31-37) 33 g/dL (31-37) Red Cell Distribution Width 14.6 % (11.5-14.5) 14.8 % (11.5-14.5) Platelet Count 316 x10^3/uL (140-400) 246 x10^3/uL (140-400) Neutrophils (%) (Auto) 73 % (31-73) 75 % (31-73) Lymphocytes (%) (Auto) 19 % (24-48) 17 % (24-48) Monocytes (%) (Auto) 6 % (0-9) 8 % (0-9) Eosinophils (%) (Auto) 1 % (0-3) 0 % (0-3) Basophils (%) (Auto) 0 % (0-3) 0 % (0-3) Neutrophils # (Auto) 2.3 x10^3/uL (1.8-7.7) 2.6 x10^3/uL (1.8-7.7) Lymphocytes # (Auto) 0.6 x10^3/uL (1.0-4.8) 0.6 x10^3/uL (1.0-4.8) Monocytes # (Auto) 0.2 x10^3/uL (0.0-1.1) 0.3 x10^3/uL (0.0-1.1) Eosinophils # (Auto) 0.0 x10^3/uL (0.0-0.7) 0.0 x10^3/uL (0.0-0.7) Basophils # (Auto) 0.0 x10^3/uL (0.0-0.2) 0.0 x10^3/uL (0.0-0.2) Sodium Level 136 mmol/L (136-145) 142 mmol/L (136-145) Potassium Level 4.5 mmol/L (3.5-5.1) 3.8 mmol/L (3.5-5.1) Chloride Level 101 mmol/L (98-107) 108 mmol/L (98-107) Carbon Dioxide Level 21 mmol/L (21-32) 21 mmol/L (21-32) Anion Gap 14 (6-14) 13 (6-14) Blood Urea Nitrogen 48 mg/dL (8-26) 44 mg/dL (8-26) Creatinine 2.3 mg/dL (0.7-1.3) 1.9 mg/dL (0.7-1.3) Estimated GFR (Cockcroft-Gault) 27.2 33.9 BUN/Creatinine Ratio 21 (6-20) Glucose Level 119 mg/dL (70-99) 105 mg/dL (70-99) Calcium Level 8.3 mg/dL (8.5-10.1) 7.6 mg/dL (8.5-10.1) Total Bilirubin 1.1 mg/dL (0.2-1.0) Aspartate Amino Transf (AST/SGOT) 58 U/L (15-37) Alanine Aminotransferase (ALT/SGPT) 44 U/L (16-63) Alkaline Phosphatase 70 U/L (46-116) Lactate Dehydrogenase 524 U/L (85-227) Total Protein 6.8 g/dL (6.4-8.2) Albumin 2.5 g/dL (3.4-5.0) Albumin/Globulin Ratio 0.6 (1.0-1.7) Lactic Acid Level 2.7 mmol/L (0.4-2.0) 2.7 mmol/L (0.4-2.0) O2 Saturation 99 % (92-99) Arterial Blood pH 7.32 (7.35-7.45) Arterial Blood pCO2 at Patient Temp 33 mmHg (35-46) Arterial Blood pO2 at Patient Temp 200 mmHg (65-108) Arterial Blood HCO3 16 mmol/L (21-28) Arterial Blood Base Excess -9 mmol/L (-3-3) FiO2 100% or vent Test 07/12/21 12:55 O2 Saturation 95 % (92-99) Arterial Blood pH 7.27 (7.35-7.45) Arterial Blood pCO2 at Patient Temp 39 mmHg (35-46) Arterial Blood pO2 at Patient Temp 80 mmHg (65-108) Arterial Blood HCO3 17 mmol/L (21-28) Arterial Blood Base Excess -9 mmol/L (-3-3) FiO2 50% ac 20 400 5 Glucose (Fingerstick) 104 mg/dL (70-99) MEDICATIONS: Current Medications Medications (Trade) Dose Ordered Sig/Armin Start Time Stop Time Status Last Admin Dose Admin Albumin Human 500 ml @ 125 mls/hr 1X ONCE 07/12/21 12:45 07/12/21 16:44 DC Cefoxitin Sodium (Mefoxin) 1 gm Q6H 07/12/21 14:00 07/13/21 02:01 Ceftriaxone Sodium (Rocephin) 2 gm Q24H 07/12/21 07:00 07/12/21 07:00 2 GM Dexamethasone Sodium Phosphate (Decadron) 4 mg STK-MED ONCE 07/12/21 07:43 07/12/21 07:44 DC Enoxaparin Sodium (Lovenox 30mg Syringe) 30 mg Q24H 07/12/21 21:00 Ephedrine Sulfate (ePHEDrine PF IN SALINE SYRINGE) 50 mg STK-MED ONCE 07/12/21 10:27 07/12/21 10:27 DC Etomidate (Amidate) 20 mg STK-MED ONCE 07/12/21 08:30 07/12/21 08:30 DC Famotidine (Pepcid Vial) 20 mg QHS 07/12/21 21:00 Fentanyl Citrate (Fentanyl 2ml Vial) 50 mcg 1X ONCE 07/12/21 14:15 07/12/21 14:16 DC Glycerin/ Hypromellose/ Polyethylene (Artificial Tears) 1 drop PRN Q1HR PRN 07/12/21 12:45 Glycopyrrolate (Robinul) 1 mg STK-MED ONCE 07/12/21 07:45 07/12/21 07:45 DC Hydromorphone HCl (Dilaudid) 0.5 mg PRN Q10MIN PRN 07/12/21 08:00 07/13/21 07:59 Metronidazole 100 ml @ 100 mls/hr Q8HRS 07/12/21 14:00 Midazolam HCl 100 ml @ 1 mls/hr CONT PRN 07/12/21 12:45 07/12/21 16:55 1 MLS/HR Midazolam HCl (Versed) 2 mg STK-MED ONCE 07/12/21 07:44 07/12/21 07:44 DC Morphine Sulfate (Morphine Sulfate) 1 mg PRN Q1HR PRN 07/12/21 12:15 07/12/21 13:51 DC Naloxone HCl (Narcan) 0.4 mg PRN Q2MIN PRN 07/12/21 12:15 Neostigmine [place] (Neostigmine Methylsulfate) 5 mg STK-MED ONCE 07/12/21 07:44 07/12/21 07:44 DC Norepinephrine Bitartrate 8 mg/ Dextrose 258 ml @ 11.204 mls/ hr CONT PRN 07/12/21 13:45 Ondansetron HCl (Zofran) 4 mg PRN Q6HRS PRN 07/12/21 12:15 Phenylephrine HCl (Lionel-Synephrine Inj) 10 mg STK-MED ONCE 07/12/21 11:54 07/12/21 11:55 DC Phenylephrine HCl (PHENYLEPHRINE in 0.9% NACL PF) 1 mg STK-MED ONCE 07/12/21 10:27 07/12/21 10:27 DC Piperacillin Sod/ Tazobactam Sod 2.25 gm/Sodium Chloride 50 ml @ 100 mls/hr Q8HRS 07/12/21 14:00 Prochlorperazine Edisylate (Compazine) 5 mg PACU PRN PRN 07/12/21 08:00 07/13/21 07:59 Propofol 100 ml @ 1.74 mls/hr CONT PRN 07/12/21 12:45 Propofol (Diprivan) 200 mg STK-MED ONCE 07/12/21 07:43 07/12/21 07:44 DC Ringer's Solution 1,000 ml @ 100 mls/hr Q10H 07/12/21 12:15 Rocuronium [place] (Zemuron) 100 mg STK-MED ONCE 07/12/21 09:34 07/12/21 09:34 DC Sodium Bicarbonate 150 meq/Dextrose 1,150 ml @ 75 mls/hr [id number] 07/12/21 14:30 07/12/21 14:18 75 MLS/HR Sodium Bicarbonate (Sodium Bicarb Adult 8.4% Syr) 50 meq 1X ONCE 07/12/21 13:45 07/12/21 13:46 DC 07/12/21 13:40 50 MEQ Sodium Chloride 1,000 ml @ 25 mls/hr Q24H 07/12/21 12:15 Sodium Chloride (Normal Saline Flush) 3 ml QSHIFT PRN 07/12/21 12:15 Succinylcholine Chloride (Anectine) 200 mg STK-MED ONCE 07/12/21 07:44 07/12/21 07:44 DC ASSESSMENT & PLAN Urology was consulted for conway catheter placement. I attempted a 12 fr and 8 fr catheter. Unable to enter the urethra due to significant stenosis. I prepped the patient with sterile technique. A 0.35 guidewire was inserted into the bladder without difficulty. I then was able to insert hemostats into the urethra, dilating it. Once dilated, I was able to thread a 14fr catheter into the bladder. Immediate return of clear yellow urine. The guidewire was then removed, 10ml was inserted into the catheter balloon, and the catheter was attached to a drainage bag. ALE NAVARRO APRN Jul 12, 2021 17:03
[2021-07-12] MEDS: cefOXitin SODIUM IV Push 1 GM VIAL. IVP SCH ×2 (17:05→19:38)
[2021-07-12] MEDS: PIPERACILLIN/TAZOBACTAM 2.25 GM in IV NORMAL SALINE 50ML 50 ML IV SCH ×2 (17:06→22:01)
[2021-07-12 18:06] LABS: BASE EXCESS ABG -5 mmol/L (-3-3); HCO3 ABG 18 mmol/L (21-28); PCO2 ABG 27 mmHg (35-46); PO2 ABG 90 mmHg (65-108); SAT O2 ABG 98 % (92-99)
[2021-07-12] MEDS: IV RINGERS,LACTATED 1000ML 1,000 ML IV SCH ×2 (19:37→22:15)
[2021-07-12] MEDS: FAMOTIDINE 20 MG/2 ML VIAL IVP SCH (20:36)
[2021-07-12] MEDS: ENOXAPARIN 30 MG/0.3 ML SYRINGE. SQ SCH (20:36)
[2021-07-12] MEDS ORDERED: SEVOFLURANE 61 TO 120 MINUTES. IH ONE (21:15)
--- NOTE | 2021-07-12 23:30 | HP ---
DATE OF SERVICE: 07/12/2021 ADMIT DATE: 07/12/2021 HISTORY OF PRESENT ILLNESS: The patient is an 85-year-old male patient who presented to the Emergency Room of [facility] with a complaint of abdominal pain. He stated that he has been complaining of pain all over and has not taken his stomach medication that he does not remember. He usually follows with Dr. Hutchins, stated that he knows that he has a hiatal hernia that is always giving him problems. He was evaluated by the ER physician at [facility] where he was found to have generalized abdominal pain, some focal rebound finding the periumbilical area and right upper quadrant. The patient himself denied any intake of any bad food. No history of tarry stools. No history of travel. No fever or chills. No specific history of ill contacts. He did get his Moderna vaccination x 3. However, he did not get his flu shot in this season. Apparently, the patient is known to have history of gastritis, hiatal hernia, gastric ulcers, chronic constipation and also prostate cancer, status post prostatectomy done by ____ and arthritis with possible metastatic spread of the prostate cancer. He also has recently fallen and has broken ribs on his back on 06/28/2021. He was basically extensively investigated in the Emergency Room and has had lab work and imaging studies. His lab work showed that his white cell count was only 6.9, hemoglobin 17, hematocrit 53, and MCV 89 with a platelet of 384. His chemistry showed that he has mild hyponatremia and chronic kidney disease versus acute on chronic kidney disease, slightly elevated liver enzymes. His prothrombin time, INR and APTT were normal. Urinalysis essentially unremarkable and his coronavirus by rapid antigen testing was negative. Influenza A and B were negative. Did have a CT scan, acute abdomen series, which showed that patient has no acute radiographic abnormality and large hiatal hernia, unchanged with nonobstructive bowel gas pattern; however, his CT scan of the abdomen and pelvis with oral contrast showed that the patient has development of a large volume pneumoperitoneum, which extends into a very large hiatal hernia sac, which contains the entirety of the stomach, free contrast as well as complex free fluid within the abdomen and pelvis with the suspected site of bowel perforation near the diaphragmatic hiatus in the expected region of the gastroesophageal junction. This may be ischemic in nature such as from twisting vasculature, possible associated infarction of the spleen. Redemonstration of multifocal metastatic disease as described on 06/28/2021. He has extensive vascular calcification, diffuse osteopenia and severe multifocal degenerative changes. Therefore, the patient was treated with IV fluid, IV pain medication and was transferred to [facility] after he was started on piperacillin-tazobactam as well as metronidazole and apparently the finding was discussed with Dr. Medina and he will be seeing him as soon as the patient arrives to the ICU of [facility]. PAST MEDICAL HISTORY: Significant for hypertension, hiatus hernia, gastroesophageal reflux disease, gastric ulcer, chronic constipation, prostate cancer with metastasis to the bone. PAST SURGICAL HISTORY: Significant for prostatectomy. ALLERGIES: He has no known drug allergies. MEDICATIONS: Currently, he is on hydrocodone/APAP 5/325 one tablet every 6 hours as needed. PHYSICAL EXAMINATION: GENERAL: On arrival to the Emergency Room, the patient looked well and was clearly in no apparent respiratory distress. No pallor, jaundice, cyanosis. No lymphadenopathy, no thyromegaly, no jugular venous distention. No lower limb edema. VITAL SIGNS: His heart rate on arrival to the Emergency Room was 87, blood pressure is 123/73, temperature was 98.2, respiratory rate 20, and oxygen saturation was 96%. HEAD, EYES, EARS, NOSE, AND THROAT: Normocephalic, atraumatic. NECK: Supple. HEART: Showed normal first and second heart sounds. No gallop or murmur. CHEST: Clear to auscultation, no crepitation or rhonchi. ABDOMEN: Distended, soft with tenderness mostly in the periumbilical area and right upper quadrant. NEUROLOGIC: He was grossly intact. LABORATORY DATA: Showed a white cell count of 6.9, hemoglobin 17, hematocrit 53, MCV 89 and platelet count 384,000 with automated differential showed 87% polymorphs, 6% lymphocytes, 7% monocytes. His chemistry showed a serum sodium 133, potassium 3.8, chloride 100, bicarbonate 21, anion gap of 12, BUN 42, creatinine 2.1. Estimated GFR was 30 mL per minute. His glucose was 221, calcium was 9.6. Total bilirubin, alkaline phosphatase are normal. AST, ALT slightly elevated. CK was up at 167. Troponin I high sensitivity was 14. Total protein 7.5, albumin 3.8 and lipase was 47. His prothrombin time, INR and APTT were normal. Urinalysis is essentially unremarkable and his influenza A and B were negative. Coronavirus by rapid antigen testing was negative. ASSESSMENT AND PLAN: The patient was transferred to [facility] ICU with small bowel perforation with significant pneumoperitoneum and free fluid ____ proximal small bowel. He has also multiple pulmonary nodules, appears metastatic. He has multiple nodules in the liver, appears metastatic, has left rib fracture, sixth and seventh; has dehydration; history of prostate cancer, status post prostatectomy; elevated AST and ALT; hyperglycemia and past history of gastric ulcers; has had an EGD done about 2 years ago. Plan is to keep him n.p.o. Continue with IV antibiotic, IV fluid and consult Dr. Medina. PETEY/MUNDO/SOCORRO DR: PETEY/leighann TID: [id number]
[2021-07-12] MEDS: NOREPINEPHRINE VIAL 8 MG in IV DEXTROSE 5% 250 ML IV PRN (23:39)
[2021-07-13] VITALS (34 sets, daily range): BP systolic 81–144; BP diastolic 38–62
[2021-07-13] MEDS: cefOXitin SODIUM IV Push 1 GM VIAL. IVP SCH (01:47)
[2021-07-13] MEDS: IV NORMAL SALINE 1000ML BAG 1,000 ML IV SCH ×2 (01:51→17:16)
[2021-07-13] MEDS ORDERED: DIGOXIN IV 500 MCG/2 ML AMPUL. IV ONE (03:30)
--- NOTE | 2021-07-13 04:13 | NUR ---
At approx 0315, patient heart rhythm converted from SR 80s to Afib RVR 150s. This rhythm change occurred spontaneously without any activity/medication administration proceeding it. Patient BP fluctuating rapidly SBP in 80s next in 160s via arterial line. Patient is comfortably sedated and resting on vent. Dr. Puckett called, orders received for digoxin X1 and to attempt to go down on levophed. Digoxin administered, attempted to go down on levophed which quickly resulted with SBP in 70s, levophed back up to original rate of 0.25mcg.
[2021-07-13 05:12] LABS: BASO % 0 % (0-3); EOS % 0 % (0-3); HEMATOCRIT 43.4 % (39.0-53.0); HEMOGLOBIN 14.5 g/dL (13.0-17.5); LYMPH # 0.8 x10^3/uL (1.0-4.8); LYMPH % 11 % (24-48); MEAN CORPUSCULAR HEMOGLOBIN 29 pg (25-35); MEAN CORPUSCULAR HGB CONC 33 g/dL (31-37); MEAN CORPUSCULAR VOLUME 86 fL (79-100); MONO # 0.3 x10^3/uL (0.0-1.1); MONO % 4 % (0-9); NEUT # 6.4 x10^3/uL (1.8-7.7); NEUT % 85 % (31-73); PLATELET COUNT 281 x10^3/uL (140-400); RED BLOOD COUNT 5.03 x10^6/uL (4.30-5.70); RED CELL DISTRIBUTION WIDTH 14.8 % (11.5-14.5); WHITE BLOOD COUNT 7.5 x10^3/uL (4.0-11.0)
[2021-07-13 05:30] LABS: ALBUMIN 2.4 g/dL (3.4-5.0); CALCIUM 7.2 mg/dL (8.5-10.1); CREATININE 2.2 mg/dL (0.7-1.3); GFR 28.6; MAGNESIUM 1.7 mg/dL (1.8-2.4); POTASSIUM 3.5 mmol/L (3.5-5.1); TOTAL BILIRUBIN 1.2 mg/dL (0.2-1.0); TOTAL PROTEIN 4.9 g/dL (6.4-8.2)
[2021-07-13] MEDS: SODIUM BICARBONATE VIAL 150 MEQ in IV DEXTROSE 5% 1,000 ML IV SCH (05:37)
[2021-07-13] MEDS: PIPERACILLIN/TAZOBACTAM 2.25 GM in IV NORMAL SALINE 50ML 50 ML IV SCH ×3 (05:37→18:56)
[2021-07-13] MEDS: cefTRIAXone IV Push 2 GM VIAL. IVP SCH (06:30)
[2021-07-13 08:02] LABS: BASE EXCESS ABG 0 mmol/L (-3-3); HCO3 ABG 22 mmol/L (21-28); PCO2 ABG 29 mmHg (35-46); PO2 ABG 87 mmHg (65-108); SAT O2 ABG 97 % (92-99)
[2021-07-13 08:10] LABS: FIO2 ABG 50%
--- NOTE | 2021-07-13 08:23 | RAD ---
XR CHEST 1V INDICATION: Reason: rf 108 / Spl. Instructions: / History: . COMPARISON STUDY: 07/12/2021. FINDINGS: Life Support Devices: Stable endotracheal tube, left subclavian central venous catheter. Lungs: Low lung volumes. Increase in bibasilar heterogeneous opacities. Pleura: Increased small left pleural effusion. Heart and Mediastinum: Stable cardiomediastinal silhouette and great vessels. Bones and Soft Tissues: Stable regional skeleton and soft tissues. IMPRESSION: 1. Stable life support devices. 2. Increasing bibasilar opacities. 3. Increased small left pleural effusion. Electronically signed by: Mil Andino MD (07/13/2021 8:21 AM) [id number]
--- NOTE | 2021-07-13 08:53 | PDOC ---
PULMONARY PROGRESS NOTES DATE: 07/13/21 TIME: 08:50 Subjective Patient currently sedated, IV sodium bicarb, IV norepinephrine Vital signs are better ABG this morning has improved Vitals Vital Signs Date Time Temp Pulse Resp B/P (MAP) Pulse Ox O2 Delivery O2 Flow Rate FiO2 07/13/21 08:00 98.8 112 24 120/48 100 Ventilator 98.8 07/12/21 13:48 2.0 Lungs: Clear Cardiovascular: S1, S2 Abdomen: Soft, Other (Dressing in place, drains in place) Extremities: Other Skin: Warm (Mild edema) Labs Laboratory Tests Test 07/12/21 08:15 07/12/21 09:05 07/12/21 09:25 07/12/21 12:52 White Blood Count 3.2 x10^3/uL (4.0-11.0) 3.5 x10^3/uL (4.0-11.0) Red Blood Count 6.02 x10^6/uL (4.30-5.70) 5.69 x10^6/uL (4.30-5.70) Hemoglobin 17.5 g/dL (13.0-17.5) 16.4 g/dL (13.0-17.5) Hematocrit 52.6 % (39.0-53.0) 49.9 % (39.0-53.0) Mean Corpuscular Volume 87 fL (79-100) 88 fL (79-100) Mean Corpuscular Hemoglobin 29 pg (25-35) 29 pg (25-35) Mean Corpuscular Hemoglobin Concent 33 g/dL (31-37) 33 g/dL (31-37) Red Cell Distribution Width 14.6 % (11.5-14.5) 14.8 % (11.5-14.5) Platelet Count 316 x10^3/uL (140-400) 246 x10^3/uL (140-400) Neutrophils (%) (Auto) 73 % (31-73) 75 % (31-73) Lymphocytes (%) (Auto) 19 % (24-48) 17 % (24-48) Monocytes (%) (Auto) 6 % (0-9) 8 % (0-9) Eosinophils (%) (Auto) 1 % (0-3) 0 % (0-3) Basophils (%) (Auto) 0 % (0-3) 0 % (0-3) Neutrophils # (Auto) 2.3 x10^3/uL (1.8-7.7) 2.6 x10^3/uL (1.8-7.7) Lymphocytes # (Auto) 0.6 x10^3/uL (1.0-4.8) 0.6 x10^3/uL (1.0-4.8) Monocytes # (Auto) 0.2 x10^3/uL (0.0-1.1) 0.3 x10^3/uL (0.0-1.1) Eosinophils # (Auto) 0.0 x10^3/uL (0.0-0.7) 0.0 x10^3/uL (0.0-0.7) Basophils # (Auto) 0.0 x10^3/uL (0.0-0.2) 0.0 x10^3/uL (0.0-0.2) Sodium Level 136 mmol/L (136-145) 142 mmol/L (136-145) Potassium Level 4.5 mmol/L (3.5-5.1) 3.8 mmol/L (3.5-5.1) Chloride Level 101 mmol/L (98-107) 108 mmol/L (98-107) Carbon Dioxide Level 21 mmol/L (21-32) 21 mmol/L (21-32) Anion Gap 14 (6-14) 13 (6-14) Blood Urea Nitrogen 48 mg/dL (8-26) 44 mg/dL (8-26) Creatinine 2.3 mg/dL (0.7-1.3) 1.9 mg/dL (0.7-1.3) Estimated GFR (Cockcroft-Gault) 27.2 33.9 BUN/Creatinine Ratio 21 (6-20) Glucose Level 119 mg/dL (70-99) 105 mg/dL (70-99) Calcium Level 8.3 mg/dL (8.5-10.1) 7.6 mg/dL (8.5-10.1) Total Bilirubin 1.1 mg/dL (0.2-1.0) Aspartate Amino Transf (AST/SGOT) 58 U/L (15-37) Alanine Aminotransferase (ALT/SGPT) 44 U/L (16-63) Alkaline Phosphatase 70 U/L (46-116) Lactate Dehydrogenase 524 U/L (85-227) Total Protein 6.8 g/dL (6.4-8.2) Albumin 2.5 g/dL (3.4-5.0) Albumin/Globulin Ratio 0.6 (1.0-1.7) Lactic Acid Level 2.7 mmol/L (0.4-2.0) 2.7 mmol/L (0.4-2.0) O2 Saturation 99 % (92-99) Arterial Blood pH 7.32 (7.35-7.45) Arterial Blood pCO2 at Patient Temp 33 mmHg (35-46) Arterial Blood pO2 at Patient Temp 200 mmHg (65-108) Arterial Blood HCO3 16 mmol/L (21-28) Arterial Blood Base Excess -9 mmol/L (-3-3) FiO2 100% or vent Test 07/12/21 12:55 07/12/21 18:05 07/12/21 23:36 07/13/21 05:00 O2 Saturation 95 % (92-99) 98 % (92-99) Arterial Blood pH 7.27 (7.35-7.45) 7.43 (7.35-7.45) Arterial Blood pCO2 at Patient Temp 39 mmHg (35-46) 27 mmHg (35-46) Arterial Blood pO2 at Patient Temp 80 mmHg (65-108) 90 mmHg (65-108) Arterial Blood HCO3 17 mmol/L (21-28) 18 mmol/L (21-28) Arterial Blood Base Excess -9 mmol/L (-3-3) -5 mmol/L (-3-3) FiO2 50% ac 20 400 5 50% ac 24, 400 5 Glucose (Fingerstick) 104 mg/dL (70-99) 117 mg/dL (70-99) White Blood Count 7.5 x10^3/uL (4.0-11.0) Red Blood Count 5.03 x10^6/uL (4.30-5.70) Hemoglobin 14.5 g/dL (13.0-17.5) Hematocrit 43.4 % (39.0-53.0) Mean Corpuscular Volume 86 fL (79-100) Mean Corpuscular Hemoglobin 29 pg (25-35) Mean Corpuscular Hemoglobin Concent 33 g/dL (31-37) Red Cell Distribution Width 14.8 % (11.5-14.5) Platelet Count 281 x10^3/uL (140-400) Neutrophils (%) (Auto) 85 % (31-73) Lymphocytes (%) (Auto) 11 % (24-48) Monocytes (%) (Auto) 4 % (0-9) Eosinophils (%) (Auto) 0 % (0-3) Basophils (%) (Auto) 0 % (0-3) Neutrophils # (Auto) 6.4 x10^3/uL (1.8-7.7) Lymphocytes # (Auto) 0.8 x10^3/uL (1.0-4.8) Monocytes # (Auto) 0.3 x10^3/uL (0.0-1.1) Eosinophils # (Auto) 0.0 x10^3/uL (0.0-0.7) Basophils # (Auto) 0.0 x10^3/uL (0.0-0.2) Sodium Level 141 mmol/L (136-145) Potassium Level 3.5 mmol/L (3.5-5.1) Chloride Level 106 mmol/L (98-107) Carbon Dioxide Level 23 mmol/L (21-32) Anion Gap 12 (6-14) Blood Urea Nitrogen 42 mg/dL (8-26) Creatinine 2.2 mg/dL (0.7-1.3) Estimated GFR (Cockcroft-Gault) 28.6 BUN/Creatinine Ratio 19 (6-20) Glucose Level 130 mg/dL (70-99) Calcium Level 7.2 mg/dL (8.5-10.1) Phosphorus Level 4.0 mg/dL (2.6-4.7) Magnesium Level 1.7 mg/dL (1.8-2.4) Total Bilirubin 1.2 mg/dL (0.2-1.0) Aspartate Amino Transf (AST/SGOT) 112 U/L (15-37) Alanine Aminotransferase (ALT/SGPT) 43 U/L (16-63) Alkaline Phosphatase 62 U/L (46-116) Total Protein 4.9 g/dL (6.4-8.2) Albumin 2.4 g/dL (3.4-5.0) Albumin/Globulin Ratio 1.0 (1.0-1.7) Test 07/13/21 08:00 O2 Saturation 97 % (92-99) Arterial Blood pH 7.50 (7.35-7.45) Arterial Blood pCO2 at Patient Temp 29 mmHg (35-46) Arterial Blood pO2 at Patient Temp 87 mmHg (65-108) Arterial Blood HCO3 22 mmol/L (21-28) Arterial Blood Base Excess 0 mmol/L (-3-3) FiO2 50% Laboratory Tests Test 07/12/21 09:05 07/12/21 09:25 07/12/21 12:52 07/12/21 12:55 Lactic Acid Level 2.7 mmol/L (0.4-2.0) 2.7 mmol/L (0.4-2.0) O2 Saturation 99 % (92-99) 95 % (92-99) Arterial Blood pH 7.32 (7.35-7.45) 7.27 (7.35-7.45) Arterial Blood pCO2 at Patient Temp 33 mmHg (35-46) 39 mmHg (35-46) Arterial Blood pO2 at Patient Temp 200 mmHg (65-108) 80 mmHg (65-108) Arterial Blood HCO3 16 mmol/L (21-28) 17 mmol/L (21-28) Arterial Blood Base Excess -9 mmol/L (-3-3) -9 mmol/L (-3-3) FiO2 100% or vent 50% ac 20 400 5 White Blood Count 3.5 x10^3/uL (4.0-11.0) Red Blood Count 5.69 x10^6/uL (4.30-5.70) Hemoglobin 16.4 g/dL (13.0-17.5) Hematocrit 49.9 % (39.0-53.0) Mean Corpuscular Volume 88 fL (79-100) Mean Corpuscular Hemoglobin 29 pg (25-35) Mean Corpuscular Hemoglobin Concent 33 g/dL (31-37) Red Cell Distribution Width 14.8 % (11.5-14.5) Platelet Count 246 x10^3/uL (140-400) Neutrophils (%) (Auto) 75 % (31-73) Lymphocytes (%) (Auto) 17 % (24-48) Monocytes (%) (Auto) 8 % (0-9) Eosinophils (%) (Auto) 0 % (0-3) Basophils (%) (Auto) 0 % (0-3) Neutrophils # (Auto) 2.6 x10^3/uL (1.8-7.7) Lymphocytes # (Auto) 0.6 x10^3/uL (1.0-4.8) Monocytes # (Auto) 0.3 x10^3/uL (0.0-1.1) Eosinophils # (Auto) 0.0 x10^3/uL (0.0-0.7) Basophils # (Auto) 0.0 x10^3/uL (0.0-0.2) Sodium Level 142 mmol/L (136-145) Potassium Level 3.8 mmol/L (3.5-5.1) Chloride Level 108 mmol/L (98-107) Carbon Dioxide Level 21 mmol/L (21-32) Anion Gap 13 (6-14) Blood Urea Nitrogen 44 mg/dL (8-26) Creatinine 1.9 mg/dL (0.7-1.3) Estimated GFR (Cockcroft-Gault) 33.9 Glucose Level 105 mg/dL (70-99) Calcium Level 7.6 mg/dL (8.5-10.1) Glucose (Fingerstick) 104 mg/dL (70-99) Test 07/12/21 18:05 07/12/21 23:36 07/13/21 05:00 07/13/21 08:00 O2 Saturation 98 % (92-99) 97 % (92-99) Arterial Blood pH 7.43 (7.35-7.45) 7.50 (7.35-7.45) Arterial Blood pCO2 at Patient Temp 27 mmHg (35-46) 29 mmHg (35-46) Arterial Blood pO2 at Patient Temp 90 mmHg (65-108) 87 mmHg (65-108) Arterial Blood HCO3 18 mmol/L (21-28) 22 mmol/L (21-28) Arterial Blood Base Excess -5 mmol/L (-3-3) 0 mmol/L (-3-3) FiO2 50% ac 24, 400 5 50% Glucose (Fingerstick) 117 mg/dL (70-99) White Blood Count 7.5 x10^3/uL (4.0-11.0) Red Blood Count 5.03 x10^6/uL (4.30-5.70) Hemoglobin 14.5 g/dL (13.0-17.5) Hematocrit 43.4 % (39.0-53.0) Mean Corpuscular Volume 86 fL (79-100) Mean Corpuscular Hemoglobin 29 pg (25-35) Mean Corpuscular Hemoglobin Concent 33 g/dL (31-37) Red Cell Distribution Width 14.8 % (11.5-14.5) Platelet Count 281 x10^3/uL (140-400) Neutrophils (%) (Auto) 85 % (31-73) Lymphocytes (%) (Auto) 11 % (24-48) Monocytes (%) (Auto) 4 % (0-9) Eosinophils (%) (Auto) 0 % (0-3) Basophils (%) (Auto) 0 % (0-3) Neutrophils # (Auto) 6.4 x10^3/uL (1.8-7.7) Lymphocytes # (Auto) 0.8 x10^3/uL (1.0-4.8) Monocytes # (Auto) 0.3 x10^3/uL (0.0-1.1) Eosinophils # (Auto) 0.0 x10^3/uL (0.0-0.7) Basophils # (Auto) 0.0 x10^3/uL (0.0-0.2) Sodium Level 141 mmol/L (136-145) Potassium Level 3.5 mmol/L (3.5-5.1) Chloride Level 106 mmol/L (98-107) Carbon Dioxide Level 23 mmol/L (21-32) Anion Gap 12 (6-14) Blood Urea Nitrogen 42 mg/dL (8-26) Creatinine 2.2 mg/dL (0.7-1.3) Estimated GFR (Cockcroft-Gault) 28.6 BUN/Creatinine Ratio 19 (6-20) Glucose Level 130 mg/dL (70-99) Calcium Level 7.2 mg/dL (8.5-10.1) Phosphorus Level 4.0 mg/dL (2.6-4.7) Magnesium Level 1.7 mg/dL (1.8-2.4) Total Bilirubin 1.2 mg/dL (0.2-1.0) Aspartate Amino Transf (AST/SGOT) 112 U/L (15-37) Alanine Aminotransferase (ALT/SGPT) 43 U/L (16-63) Alkaline Phosphatase 62 U/L (46-116) Total Protein 4.9 g/dL (6.4-8.2) Albumin 2.4 g/dL (3.4-5.0) Albumin/Globulin Ratio 1.0 (1.0-1.7) Medications Active Scripts Medications Dose Route/Sig Max Daily Dose Days Date Category [Pantoprazole] 40 MG Tablet.dr 40 Mg PO BIDBFRMEAL 06/22/17 Rx Carafate (Sucralfate) 1 Gm/10 Ml Oral.susp 1 Gm PO TIDBFRMEAL 06/22/17 Rx Avalide 150-12.5 Mg Tablet (Irbesartan/Hydrochlorothiazide) 1 Each Tablet 1 Each PO DAILY 06/19/17 Reported Impression . Acute respiratory failure multifactorial status post exploratory laparotomy for perforated viscus Septic shock Lactic acidosis Abnormal x-ray Respiratory alkalosis Acute renal failure History of prostate cancer Severe protein malnutrition present upon admission IMPRESSION: 1. Stable life support devices. 2. Increasing bibasilar opacities. 3. Increased small left pleural effusion. \ Plan . Decrease minute ventilation Discontinue sodium bicarb Continue pressors for mean arterial pressure above 60 Empiric antibiotics Follow-up on cultures Follow-up on final pathology report Total cumulative critical care time was 30 minutes, discussed with RN and RT. ANTELMO ANAND MD Jul 13, 2021 08:52
--- NOTE | 2021-07-13 09:04 | PDOC ---
SURGICAL PROGRESS NOTE DATE: 07/13/21 TIME: 09:02 Subjective vent, sedated Vital Signs Vital Signs Date Time Temp Pulse Resp B/P (MAP) Pulse Ox O2 Delivery O2 Flow Rate FiO2 07/13/21 08:00 98.8 112 24 120/48 100 Ventilator 98.8 07/12/21 13:48 2.0 I&O Intake and Output 07/13/21 07:00 Intake Total 3677.87 ml Output Total 740 ml Balance 2937.87 ml Intake Oral 0 ml IV Total 3677.87 ml Output Urine Total 740 ml General: Other (sedated) Abdomen: Soft, Other (drains in place) Labs Laboratory Tests Test 07/12/21 08:15 07/12/21 09:05 07/12/21 09:25 07/12/21 12:52 White Blood Count 3.2 x10^3/uL (4.0-11.0) 3.5 x10^3/uL (4.0-11.0) Red Blood Count 6.02 x10^6/uL (4.30-5.70) 5.69 x10^6/uL (4.30-5.70) Hemoglobin 17.5 g/dL (13.0-17.5) 16.4 g/dL (13.0-17.5) Hematocrit 52.6 % (39.0-53.0) 49.9 % (39.0-53.0) Mean Corpuscular Volume 87 fL (79-100) 88 fL (79-100) Mean Corpuscular Hemoglobin 29 pg (25-35) 29 pg (25-35) Mean Corpuscular Hemoglobin Concent 33 g/dL (31-37) 33 g/dL (31-37) Red Cell Distribution Width 14.6 % (11.5-14.5) 14.8 % (11.5-14.5) Platelet Count 316 x10^3/uL (140-400) 246 x10^3/uL (140-400) Neutrophils (%) (Auto) 73 % (31-73) 75 % (31-73) Lymphocytes (%) (Auto) 19 % (24-48) 17 % (24-48) Monocytes (%) (Auto) 6 % (0-9) 8 % (0-9) Eosinophils (%) (Auto) 1 % (0-3) 0 % (0-3) Basophils (%) (Auto) 0 % (0-3) 0 % (0-3) Neutrophils # (Auto) 2.3 x10^3/uL (1.8-7.7) 2.6 x10^3/uL (1.8-7.7) Lymphocytes # (Auto) 0.6 x10^3/uL (1.0-4.8) 0.6 x10^3/uL (1.0-4.8) Monocytes # (Auto) 0.2 x10^3/uL (0.0-1.1) 0.3 x10^3/uL (0.0-1.1) Eosinophils # (Auto) 0.0 x10^3/uL (0.0-0.7) 0.0 x10^3/uL (0.0-0.7) Basophils # (Auto) 0.0 x10^3/uL (0.0-0.2) 0.0 x10^3/uL (0.0-0.2) Sodium Level 136 mmol/L (136-145) 142 mmol/L (136-145) Potassium Level 4.5 mmol/L (3.5-5.1) 3.8 mmol/L (3.5-5.1) Chloride Level 101 mmol/L (98-107) 108 mmol/L (98-107) Carbon Dioxide Level 21 mmol/L (21-32) 21 mmol/L (21-32) Anion Gap 14 (6-14) 13 (6-14) Blood Urea Nitrogen 48 mg/dL (8-26) 44 mg/dL (8-26) Creatinine 2.3 mg/dL (0.7-1.3) 1.9 mg/dL (0.7-1.3) Estimated GFR (Cockcroft-Gault) 27.2 33.9 BUN/Creatinine Ratio 21 (6-20) Glucose Level 119 mg/dL (70-99) 105 mg/dL (70-99) Calcium Level 8.3 mg/dL (8.5-10.1) 7.6 mg/dL (8.5-10.1) Total Bilirubin 1.1 mg/dL (0.2-1.0) Aspartate Amino Transf (AST/SGOT) 58 U/L (15-37) Alanine Aminotransferase (ALT/SGPT) 44 U/L (16-63) Alkaline Phosphatase 70 U/L (46-116) Lactate Dehydrogenase 524 U/L (85-227) Total Protein 6.8 g/dL (6.4-8.2) Albumin 2.5 g/dL (3.4-5.0) Albumin/Globulin Ratio 0.6 (1.0-1.7) Lactic Acid Level 2.7 mmol/L (0.4-2.0) 2.7 mmol/L (0.4-2.0) O2 Saturation 99 % (92-99) Arterial Blood pH 7.32 (7.35-7.45) Arterial Blood pCO2 at Patient Temp 33 mmHg (35-46) Arterial Blood pO2 at Patient Temp 200 mmHg (65-108) Arterial Blood HCO3 16 mmol/L (21-28) Arterial Blood Base Excess -9 mmol/L (-3-3) FiO2 100% or vent Test 07/12/21 12:55 07/12/21 18:05 07/12/21 23:36 07/13/21 05:00 O2 Saturation 95 % (92-99) 98 % (92-99) Arterial Blood pH 7.27 (7.35-7.45) 7.43 (7.35-7.45) Arterial Blood pCO2 at Patient Temp 39 mmHg (35-46) 27 mmHg (35-46) Arterial Blood pO2 at Patient Temp 80 mmHg (65-108) 90 mmHg (65-108) Arterial Blood HCO3 17 mmol/L (21-28) 18 mmol/L (21-28) Arterial Blood Base Excess -9 mmol/L (-3-3) -5 mmol/L (-3-3) FiO2 50% ac 20 400 5 50% ac 24, 400 5 Glucose (Fingerstick) 104 mg/dL (70-99) 117 mg/dL (70-99) White Blood Count 7.5 x10^3/uL (4.0-11.0) Red Blood Count 5.03 x10^6/uL (4.30-5.70) Hemoglobin 14.5 g/dL (13.0-17.5) Hematocrit 43.4 % (39.0-53.0) Mean Corpuscular Volume 86 fL (79-100) Mean Corpuscular Hemoglobin 29 pg (25-35) Mean Corpuscular Hemoglobin Concent 33 g/dL (31-37) Red Cell Distribution Width 14.8 % (11.5-14.5) Platelet Count 281 x10^3/uL (140-400) Neutrophils (%) (Auto) 85 % (31-73) Lymphocytes (%) (Auto) 11 % (24-48) Monocytes (%) (Auto) 4 % (0-9) Eosinophils (%) (Auto) 0 % (0-3) Basophils (%) (Auto) 0 % (0-3) Neutrophils # (Auto) 6.4 x10^3/uL (1.8-7.7) Lymphocytes # (Auto) 0.8 x10^3/uL (1.0-4.8) Monocytes # (Auto) 0.3 x10^3/uL (0.0-1.1) Eosinophils # (Auto) 0.0 x10^3/uL (0.0-0.7) Basophils # (Auto) 0.0 x10^3/uL (0.0-0.2) Sodium Level 141 mmol/L (136-145) Potassium Level 3.5 mmol/L (3.5-5.1) Chloride Level 106 mmol/L (98-107) Carbon Dioxide Level 23 mmol/L (21-32) Anion Gap 12 (6-14) Blood Urea Nitrogen 42 mg/dL (8-26) Creatinine 2.2 mg/dL (0.7-1.3) Estimated GFR (Cockcroft-Gault) 28.6 BUN/Creatinine Ratio 19 (6-20) Glucose Level 130 mg/dL (70-99) Calcium Level 7.2 mg/dL (8.5-10.1) Phosphorus Level 4.0 mg/dL (2.6-4.7) Magnesium Level 1.7 mg/dL (1.8-2.4) Total Bilirubin 1.2 mg/dL (0.2-1.0) Aspartate Amino Transf (AST/SGOT) 112 U/L (15-37) Alanine Aminotransferase (ALT/SGPT) 43 U/L (16-63) Alkaline Phosphatase 62 U/L (46-116) Total Protein 4.9 g/dL (6.4-8.2) Albumin 2.4 g/dL (3.4-5.0) Albumin/Globulin Ratio 1.0 (1.0-1.7) Test 07/13/21 08:00 O2 Saturation 97 % (92-99) Arterial Blood pH 7.50 (7.35-7.45) Arterial Blood pCO2 at Patient Temp 29 mmHg (35-46) Arterial Blood pO2 at Patient Temp 87 mmHg (65-108) Arterial Blood HCO3 22 mmol/L (21-28) Arterial Blood Base Excess 0 mmol/L (-3-3) FiO2 50% Laboratory Tests Test 07/12/21 09:05 07/12/21 09:25 07/12/21 12:52 07/12/21 12:55 Lactic Acid Level 2.7 mmol/L (0.4-2.0) 2.7 mmol/L (0.4-2.0) O2 Saturation 99 % (92-99) 95 % (92-99) Arterial Blood pH 7.32 (7.35-7.45) 7.27 (7.35-7.45) Arterial Blood pCO2 at Patient Temp 33 mmHg (35-46) 39 mmHg (35-46) Arterial Blood pO2 at Patient Temp 200 mmHg (65-108) 80 mmHg (65-108) Arterial Blood HCO3 16 mmol/L (21-28) 17 mmol/L (21-28) Arterial Blood Base Excess -9 mmol/L (-3-3) -9 mmol/L (-3-3) FiO2 100% or vent 50% ac 20 400 5 White Blood Count 3.5 x10^3/uL (4.0-11.0) Red Blood Count 5.69 x10^6/uL (4.30-5.70) Hemoglobin 16.4 g/dL (13.0-17.5) Hematocrit 49.9 % (39.0-53.0) Mean Corpuscular Volume 88 fL (79-100) Mean Corpuscular Hemoglobin 29 pg (25-35) Mean Corpuscular Hemoglobin Concent 33 g/dL (31-37) Red Cell Distribution Width 14.8 % (11.5-14.5) Platelet Count 246 x10^3/uL (140-400) Neutrophils (%) (Auto) 75 % (31-73) Lymphocytes (%) (Auto) 17 % (24-48) Monocytes (%) (Auto) 8 % (0-9) Eosinophils (%) (Auto) 0 % (0-3) Basophils (%) (Auto) 0 % (0-3) Neutrophils # (Auto) 2.6 x10^3/uL (1.8-7.7) Lymphocytes # (Auto) 0.6 x10^3/uL (1.0-4.8) Monocytes # (Auto) 0.3 x10^3/uL (0.0-1.1) Eosinophils # (Auto) 0.0 x10^3/uL (0.0-0.7) Basophils # (Auto) 0.0 x10^3/uL (0.0-0.2) Sodium Level 142 mmol/L (136-145) Potassium Level 3.8 mmol/L (3.5-5.1) Chloride Level 108 mmol/L (98-107) Carbon Dioxide Level 21 mmol/L (21-32) Anion Gap 13 (6-14) Blood Urea Nitrogen 44 mg/dL (8-26) Creatinine 1.9 mg/dL (0.7-1.3) Estimated GFR (Cockcroft-Gault) 33.9 Glucose Level 105 mg/dL (70-99) Calcium Level 7.6 mg/dL (8.5-10.1) Glucose (Fingerstick) 104 mg/dL (70-99) Test 07/12/21 18:05 07/12/21 23:36 07/13/21 05:00 07/13/21 08:00 O2 Saturation 98 % (92-99) 97 % (92-99) Arterial Blood pH 7.43 (7.35-7.45) 7.50 (7.35-7.45) Arterial Blood pCO2 at Patient Temp 27 mmHg (35-46) 29 mmHg (35-46) Arterial Blood pO2 at Patient Temp 90 mmHg (65-108) 87 mmHg (65-108) Arterial Blood HCO3 18 mmol/L (21-28) 22 mmol/L (21-28) Arterial Blood Base Excess -5 mmol/L (-3-3) 0 mmol/L (-3-3) FiO2 50% ac 24, 400 5 50% Glucose (Fingerstick) 117 mg/dL (70-99) White Blood Count 7.5 x10^3/uL (4.0-11.0) Red Blood Count 5.03 x10^6/uL (4.30-5.70) Hemoglobin 14.5 g/dL (13.0-17.5) Hematocrit 43.4 % (39.0-53.0) Mean Corpuscular Volume 86 fL (79-100) Mean Corpuscular Hemoglobin 29 pg (25-35) Mean Corpuscular Hemoglobin Concent 33 g/dL (31-37) Red Cell Distribution Width 14.8 % (11.5-14.5) Platelet Count 281 x10^3/uL (140-400) Neutrophils (%) (Auto) 85 % (31-73) Lymphocytes (%) (Auto) 11 % (24-48) Monocytes (%) (Auto) 4 % (0-9) Eosinophils (%) (Auto) 0 % (0-3) Basophils (%) (Auto) 0 % (0-3) Neutrophils # (Auto) 6.4 x10^3/uL (1.8-7.7) Lymphocytes # (Auto) 0.8 x10^3/uL (1.0-4.8) Monocytes # (Auto) 0.3 x10^3/uL (0.0-1.1) Eosinophils # (Auto) 0.0 x10^3/uL (0.0-0.7) Basophils # (Auto) 0.0 x10^3/uL (0.0-0.2) Sodium Level 141 mmol/L (136-145) Potassium Level 3.5 mmol/L (3.5-5.1) Chloride Level 106 mmol/L (98-107) Carbon Dioxide Level 23 mmol/L (21-32) Anion Gap 12 (6-14) Blood Urea Nitrogen 42 mg/dL (8-26) Creatinine 2.2 mg/dL (0.7-1.3) Estimated GFR (Cockcroft-Gault) 28.6 BUN/Creatinine Ratio 19 (6-20) Glucose Level 130 mg/dL (70-99) Calcium Level 7.2 mg/dL (8.5-10.1) Phosphorus Level 4.0 mg/dL (2.6-4.7) Magnesium Level 1.7 mg/dL (1.8-2.4) Total Bilirubin 1.2 mg/dL (0.2-1.0) Aspartate Amino Transf (AST/SGOT) 112 U/L (15-37) Alanine Aminotransferase (ALT/SGPT) 43 U/L (16-63) Alkaline Phosphatase 62 U/L (46-116) Total Protein 4.9 g/dL (6.4-8.2) Albumin 2.4 g/dL (3.4-5.0) Albumin/Globulin Ratio 1.0 (1.0-1.7) Assessment/Plan supportive care Justicifation of Admission Dx: Justifications for Admission: Justification of Admission Dx: Yes Sepsis: Hemodynamic Instability KOURTNEY SNIDER APRN Jul 13, 2021 09:04
--- NOTE | 2021-07-13 09:54 | CONS ---
DATE OF CONSULTATION: 07/12/2021 ATTENDING PHYSICIAN: Patricia Puckett MD CONSULTING PHYSICIAN: Dawn Diamond MD REASON FOR CONSULTATION: The patient is seen in pulmonary consultation at the request of Dr. Puckett for bowel perforation requiring surgical intervention, currently on mechanical support. HISTORY OF PRESENT ILLNESS: The patient is an 85-year-old that presented to the Emergency Room at [facility] with abdominal pain. He was seen by the Emergency Room physician, underwent evaluation, found to have perforated bowel. He was taken to the operating room by Dr. Juan Diego Medina. The patient underwent exploratory laparotomy, reduction of gastric volvulus, hiatal hernia repair. 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 He had duodenoscopy tube placement for perforated duodenal ulcer, EGD, umbilical hernia repair. Postoperatively, I saw him in consultation. The patient was severely hypoxic. His arterial blood gas revealed a metabolic acidosis. I gave him IV sodium bicarbonate 1 amp. In addition, I placed him on a bicarbonate drip. His initial blood gas revealed a pH of 7.27, PaCO2 of 39, pO2 of 80 with a bicarbonate of 17. The patient was also hypotensive. He was given IV albumin and started on pressors for mean arterial pressure above 60. PAST MEDICAL HISTORY: Remarkable for hypertension, hiatal hernia, gastroesophageal reflux, previous gastric ulcer, chronic constipation, prostate cancer with metastases to the bone. PAST SURGICAL HISTORY: Status post prostatectomy. ALLERGIES: No known drug allergies. MEDICATIONS: List from home was reviewed. Current medication list was reviewed. REVIEW OF SYSTEMS: Unobtainable secondary to the patient's condition. PHYSICAL EXAMINATION: GENERAL: The patient was seen directly after coming back from the operating room. VITAL SIGNS: Noted. He was hypotensive. He was on multiple pressors. He had a metabolic acidosis, once again, he was given IV sodium bicarbonate and started on pressors. HEENT: Eyes: The sclerae were nonicteric. Orally placed endotracheal tube. CHEST: Full expansion. LUNGS: Anteriorly were clear. CARDIOVASCULAR: Regular rate and rhythm with S1, S2, no S3. ABDOMEN: Evidence of recent surgery with tubes in place. EXTREMITIES: No clubbing or cyanosis. No pitting edema. NEUROLOGIC: The patient was sedated. LABORATORY DATA: Reviewed. Arterial blood gas as indicated above. White count was 3.5, hemoglobin and hematocrit of 16 and 49. Platelet count was noted. Electrolytes were noted. BUN and creatinine were elevated. Upon admission, his albumin was 2.5. Lactic acid level was 2.7. A chest x-ray revealed properly placed endotracheal tube. IMPRESSION: 1. Expected respiratory failure, multifactorial, secondary to recent surgery, lactic acidosis, perforated duodenal ulcer. 2. Status post exploratory laparotomy with repair of a hiatal hernia, reduction of gastric volvulus, excision of a biopsy of the small mesenteric mass and duodenostomy tube placement for perforated duodenal ulcer. 3. Metabolic acidosis. 4. Acute renal failure secondary to acute tubular necrosis. 5. Septic shock. 6. Protein malnutrition present upon admission. PLAN: 1. We will continue support with sodium bicarbonate drip. 2. Pressors for mean arterial pressure above 60. 3. Empiric antibiotics. 4. Adjust minute ventilation to normalize pH. 5. Repeat a.m. labs. 6. Follow surgery input. 7. PRN albumin for hypotension. 8. DVT prophylaxis. 9. GI prophylaxis. I do appreciate the privilege in sharing in the patient's care. Total cumulative critical care time of 50 minutes, the above was discussed with RN and RT. JONATHAN DR: Jaskaran TID: [id number]
[2021-07-13] MEDS: IV RINGERS,LACTATED 1000ML 1,000 ML IV SCH (10:39)
[2021-07-13] MEDS: NOREPINEPHRINE VIAL 8 MG in IV DEXTROSE 5% 250 ML IV PRN ×2 (10:40→18:52)
[2021-07-13 12:41] LABS: % ATYL 1 % (0-0); % BANDS 36 % (0-9); % LYMPHS 21 % (24-48); % MONOS 7 % (0-10); % SEGS 35 % (35-66)
[2021-07-13 12:42] LABS: PLT ESTIMATE ADEQUATE (ADEQUATE); TOXIC VACUOLATION PRESENT
[2021-07-13] MEDS: fentaNYL HIGH DOSE PCA 55 ML IV PRN (16:26)
--- NOTE | 2021-07-13 22:09 | CONS ---
DATE OF CONSULTATION: 07/13/2021 REQUESTING PHYSICIAN: Dr. Puckett. REASON FOR CONSULTATION: Perforated viscus. HISTORY OF PRESENT ILLNESS: This is an 85-year-old gentleman who was transferred from [facility]. The patient presented there with abdominal pain. Evaluation showed that he had a perforated viscus. 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 The patient is hypotensive requiring vasopressor support in ICU, still intubated. The patient is on IV Zosyn. The patient not able to provide any information, all the information was obtained through chart review and discussing with the patient's RN. PAST MEDICAL HISTORY: Positive for hypertension, hiatal hernia, gastroesophageal reflux disease, previous gastric ulcer, prostate cancer with mets to the bone. SOCIAL HISTORY: Unable to obtain. ALLERGIES: No known drug allergies. CURRENT MEDICATIONS: Reviewed. REVIEW OF SYSTEMS: As in HPI. All other systems reviewed and are negative. The patient is not able to provide. PHYSICAL EXAMINATION: GENERAL: Sedated, orally intubated gentleman, not in distress. VITAL SIGNS: Temperature 98.8, pulse 108, respirations 15, blood pressure 102/48. HEENT: Both pupils are round and reacting. No conjunctival lesion. No lesion in the mouth. Mouth cannot be visualized much as orally intubated. NECK: Supple, no JVP, no lymphadenopathy. LUNGS: Clear. Decreased breath sounds. HEART: S1, S2 regular. No gallop or murmur. ABDOMEN: Multiple tubes in the post-surgical dressing not opened. EXTREMITIES: No edema, cyanosis. SKIN: Unremarkable. 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 LABORATORY DATA: White count is 7.5 when he came in white count was low at 3.2, platelets are normal. BUN and creatinine is 42 and 2.2. Chest x-ray, bibasilar opacity and small effusion. IMPRESSION: 1. Perforated viscus, status post exploratory laparotomy, reduction of gastric volvulus, hiatal hernia repair, gastrostomy tube placement and duodenoscopy with tube placement done. 2. Hypotension, requiring vasopressor support. 3. Respiratory failure, requiring ventilatory support. 4. Renal failure. 5. History of prostate cancer. RECOMMENDATIONS: Continue Zosyn. Continue supportive care and we will continue to follow. Thank you very much, Dr. Puckett for giving me opportunity to participate in this patient's care. CARMENZA/DARIN DR: CARMENZA/leighann TID: [id number]
[2021-07-13] MEDS: ENOXAPARIN 30 MG/0.3 ML SYRINGE. SQ SCH (22:10)
[2021-07-13] MEDS: FAMOTIDINE 20 MG/2 ML VIAL IVP SCH (22:10)
[2021-07-14] VITALS (43 sets, daily range): BP systolic 80–140; BP diastolic 38–56
[2021-07-14] MEDS: PIPERACILLIN/TAZOBACTAM 2.25 GM in IV NORMAL SALINE 50ML 50 ML IV SCH ×5 (00:03→23:21)
[2021-07-14] MEDS: NOREPINEPHRINE VIAL 8 MG in IV DEXTROSE 5% 250 ML IV PRN ×4 (00:11→23:22)
[2021-07-14] MEDS: IV NORMAL SALINE 1000ML BAG 1,000 ML IV SCH ×5 (00:13→22:08)
--- NOTE | 2021-07-14 03:07 | PN ---
DATE: 07/13/2021 SUBJECTIVE: The patient is an 85-year-old male patient who was evaluated at [facility] Emergency Room where he presented with abdominal pain and has had CT scan of the abdomen and pelvis with oral contrast, that showed the patient has developed a large volume pneumoperitoneum, which extends into the very large hiatal hernia sac, which contains the entirety of the stomach, free contrast as well as complex free fluid within the abdomen and pelvis with the suspected site of bowel perforation near the diaphragmatic hiatus and expected region of the gastroesophageal reflux disease. The radiologist felt that this might be ischemic in nature such as from twisting vasculature, possible associated infarction of the spleen and there is redemonstration of multifocal metastatic disease as described on 06/28/2021. The patient was transferred to ICU. He was evaluated by the surgical team and was taken to the OR where he underwent exploratory laparotomy, reduction of gastric volvulus, hiatal hernia repair, gastrostomy tube placement, excisional biopsy of small bowel mesentery mass, jejunostomy tube placement, perforated duodenal ulcer, EGD and umbilical hernia repair. The patient was transferred back to the Emergency Room and currently he is now continued to be hypotensive, requiring multiple vasopressors including epinephrine. He was also continued on IV antibiotics, bicarbonate drip. PHYSICAL EXAMINATION: GENERAL: When I examined him this morning, the patient was heavily sedated, intubated, mechanically ventilated. There was no pallor, jaundice, cyanosis or thyromegaly. No jugular venous distention. No limb edema. VITAL SIGNS: His heart rate was 114, blood pressure was 130/48, temperature was 98.8, respiratory rate 20, and oxygen saturation was 100% on FiO2 of 40%. HEAD, EYES, EARS, NOSE, AND THROAT: Normocephalic, atraumatic. He has orotracheal and orogastric tube in place. NECK: Supple. HEART: Normal first and second heart sounds. No gallop or murmur. CHEST: Clear to auscultation. No crepitation or rhonchi. ABDOMEN: Distended with midline surgical incision covered with dressing. He has a gastrostomy tube and jejunostomy tube in place. NEUROLOGIC: He is heavily sedated as he is on propofol, midazolam and his intake was 3677, output was only 680. LABORATORY DATA: This morning showed white cell count of 7.5, hemoglobin 14.5, hematocrit 43, MCV 86 and platelet count of 281,000 with normal manual differential. His chemistry showed a serum sodium of 141, potassium 3.5, chloride 106, bicarbonate 23, anion gap of 12, BUN 42, creatinine 2.2. Estimated GFR was 28 mL per minute. His glucose 130, calcium was 7.2. Phosphorus 4 and magnesium was 1.7. Total bilirubin 1.3. AST elevated at 12. ALT, alkaline phosphatase normal. Total protein 4.9, albumin was 2.4. Arterial blood gas this morning showed a pH of 7.5, pCO2 of 29, pO2 of 87, bicarbonate 22 and oxygen saturation was 97% on FiO2 of 50%. ASSESSMENT: In summary, this is an 85-year-old male patient who was admitted with abdominal pain with a CT scan done at [facility] showing large volume pneumoperitoneum with very large hiatal hernia sac that contains the entirety of the stomach. He went to the OR yesterday and basically he underwent exploratory laparotomy, reduction of gastric volvulus, hiatal hernia repair, gastrostomy tube placement, excisional biopsy with small bowel mesentery mass, duodenoscopy with tube placement for perforated ulcer, EGD and umbilical hernia repair. The patient was found to have multiple dark verbal masses throughout the abdominal cavity, spleen and liver, likely metastatic cancer. Postoperatively, the patient was returned to the ICU, continued to be hypotensive and septic. He is now intubated and mechanically ventilated. He is on pressor support as well as multiple sedatives. So far, he is also anuric and his kidney function developed acute kidney injury. PLAN: My plan is to discontinue the Flagyl and ceftriaxone as he is already on IV Zosyn. I will consult Infectious Disease to assist with antibiotic management, although overall his prognosis is extremely poor and he has now stage IV cancer. He is known to have prostate cancer, underwent prostatectomy, ____ metastatic before. I will talk to the son explaining the extremely poor prognosis of his dad given that he has already stage IV cancer. PETEY/ASA/SARA DR: Marta TID: [id number]
[2021-07-14] MEDS ORDERED: DIGOXIN IV 500 MCG/2 ML AMPUL. IV ONE (04:30)
--- NOTE | 2021-07-14 07:47 | RAD ---
Study: XR CHEST 1V Indication: Respiratory failure. Comparison: 07/13/2021 Findings: Endotracheal tube tip 4 cm above the ti. Left subclavian central venous catheter terminates withi n the SVC. Slightly decreased infiltrates at the right lung base. Unchanged infiltrates and hazy attenuation at the left lung base and a small left pleural effusion. No pneumothorax. Impression: 1. Unchanged airspace infiltrates and pleural effusion on the left. Slightly improved aeration of the right lung base. 2. Unchanged support device positioning, as above. Electronically signed by: MARLEEN MANDEL MD (07/14/2021 7:44 AM) [facility]
[2021-07-14 07:49] LABS: BASE EXCESS ABG -1 mmol/L (-3-3); HCO3 ABG 24 mmol/L (21-28); PCO2 ABG 40 mmHg (35-46); PO2 ABG 105 mmHg (65-108); SAT O2 ABG 98 % (92-99)
[2021-07-14] MEDS: fentaNYL HIGH DOSE PCA 55 ML IV PRN (07:53)
[2021-07-14 08:26] LABS: FIO2 ABG 50% AC 16 400 5
--- NOTE | 2021-07-14 08:39 | PDOC ---
SURGICAL PROGRESS NOTE DATE: 07/14/21 TIME: 08:38 Subjective vent, sedated Vital Signs Vital Signs Date Time Temp Pulse Resp B/P (MAP) Pulse Ox O2 Delivery O2 Flow Rate FiO2 07/14/21 08:15 Ventilator 07/14/21 08:05 100.2 132 16 129/51 100 100.2 I&O Intake and Output 07/14/21 07:00 Intake Total 5419.08 ml Output Total 470 ml Balance 4949.08 ml Intake Oral 0 ml IV Total 5419.08 ml Output Urine Total 470 ml PATIENT HAS A PEDRO: Yes General: Other (sedated ) HEENT: Other (et tube) Lungs: Other (mech vent ) Abdomen: Soft, Other (tubes in place, mildly distended ) Labs Laboratory Tests Test 07/12/21 09:05 07/12/21 09:25 07/12/21 12:52 07/12/21 12:55 Lactic Acid Level 2.7 mmol/L (0.4-2.0) 2.7 mmol/L (0.4-2.0) O2 Saturation 99 % (92-99) 95 % (92-99) Arterial Blood pH 7.32 (7.35-7.45) 7.27 (7.35-7.45) Arterial Blood pCO2 at Patient Temp 33 mmHg (35-46) 39 mmHg (35-46) Arterial Blood pO2 at Patient Temp 200 mmHg (65-108) 80 mmHg (65-108) Arterial Blood HCO3 16 mmol/L (21-28) 17 mmol/L (21-28) Arterial Blood Base Excess -9 mmol/L (-3-3) -9 mmol/L (-3-3) FiO2 100% or vent 50% ac 20 400 5 White Blood Count 3.5 x10^3/uL (4.0-11.0) Red Blood Count 5.69 x10^6/uL (4.30-5.70) Hemoglobin 16.4 g/dL (13.0-17.5) Hematocrit 49.9 % (39.0-53.0) Mean Corpuscular Volume 88 fL (79-100) Mean Corpuscular Hemoglobin 29 pg (25-35) Mean Corpuscular Hemoglobin Concent 33 g/dL (31-37) Red Cell Distribution Width 14.8 % (11.5-14.5) Platelet Count 246 x10^3/uL (140-400) Neutrophils (%) (Auto) 75 % (31-73) Lymphocytes (%) (Auto) 17 % (24-48) Monocytes (%) (Auto) 8 % (0-9) Eosinophils (%) (Auto) 0 % (0-3) Basophils (%) (Auto) 0 % (0-3) Neutrophils # (Auto) 2.6 x10^3/uL (1.8-7.7) Lymphocytes # (Auto) 0.6 x10^3/uL (1.0-4.8) Monocytes # (Auto) 0.3 x10^3/uL (0.0-1.1) Eosinophils # (Auto) 0.0 x10^3/uL (0.0-0.7) Basophils # (Auto) 0.0 x10^3/uL (0.0-0.2) Sodium Level 142 mmol/L (136-145) Potassium Level 3.8 mmol/L (3.5-5.1) Chloride Level 108 mmol/L (98-107) Carbon Dioxide Level 21 mmol/L (21-32) Anion Gap 13 (6-14) Blood Urea Nitrogen 44 mg/dL (8-26) Creatinine 1.9 mg/dL (0.7-1.3) Estimated GFR (Cockcroft-Gault) 33.9 Glucose Level 105 mg/dL (70-99) Calcium Level 7.6 mg/dL (8.5-10.1) Glucose (Fingerstick) 104 mg/dL (70-99) Test 07/12/21 18:05 07/12/21 23:36 07/13/21 05:00 07/13/21 08:00 O2 Saturation 98 % (92-99) 97 % (92-99) Arterial Blood pH 7.43 (7.35-7.45) 7.50 (7.35-7.45) Arterial Blood pCO2 at Patient Temp 27 mmHg (35-46) 29 mmHg (35-46) Arterial Blood pO2 at Patient Temp 90 mmHg (65-108) 87 mmHg (65-108) Arterial Blood HCO3 18 mmol/L (21-28) 22 mmol/L (21-28) Arterial Blood Base Excess -5 mmol/L (-3-3) 0 mmol/L (-3-3) FiO2 50% ac 24, 400 5 50% Glucose (Fingerstick) 117 mg/dL (70-99) White Blood Count 7.5 x10^3/uL (4.0-11.0) Red Blood Count 5.03 x10^6/uL (4.30-5.70) Hemoglobin 14.5 g/dL (13.0-17.5) Hematocrit 43.4 % (39.0-53.0) Mean Corpuscular Volume 86 fL (79-100) Mean Corpuscular Hemoglobin 29 pg (25-35) Mean Corpuscular Hemoglobin Concent 33 g/dL (31-37) Red Cell Distribution Width 14.8 % (11.5-14.5) Platelet Count 281 x10^3/uL (140-400) Neutrophils (%) (Auto) 85 % (31-73) Lymphocytes (%) (Auto) 11 % (24-48) Monocytes (%) (Auto) 4 % (0-9) Eosinophils (%) (Auto) 0 % (0-3) Basophils (%) (Auto) 0 % (0-3) Neutrophils # (Auto) 6.4 x10^3/uL (1.8-7.7) Lymphocytes # (Auto) 0.8 x10^3/uL (1.0-4.8) Monocytes # (Auto) 0.3 x10^3/uL (0.0-1.1) Eosinophils # (Auto) 0.0 x10^3/uL (0.0-0.7) Basophils # (Auto) 0.0 x10^3/uL (0.0-0.2) Segmented Neutrophils % 35 % (35-66) Band Neutrophils % 36 % (0-9) Lymphocytes % 21 % (24-48) Atypical Lymphocytes % (Manual) 1 % (0-0) Monocytes % 7 % (0-10) Toxic Vacuolation Present Platelet Estimate Adequate (ADEQUATE) Large Platelets Few Sodium Level 141 mmol/L (136-145) Potassium Level 3.5 mmol/L (3.5-5.1) Chloride Level 106 mmol/L (98-107) Carbon Dioxide Level 23 mmol/L (21-32) Anion Gap 12 (6-14) Blood Urea Nitrogen 42 mg/dL (8-26) Creatinine 2.2 mg/dL (0.7-1.3) Estimated GFR (Cockcroft-Gault) 28.6 BUN/Creatinine Ratio 19 (6-20) Glucose Level 130 mg/dL (70-99) Calcium Level 7.2 mg/dL (8.5-10.1) Phosphorus Level 4.0 mg/dL (2.6-4.7) Magnesium Level 1.7 mg/dL (1.8-2.4) Total Bilirubin 1.2 mg/dL (0.2-1.0) Aspartate Amino Transf (AST/SGOT) 112 U/L (15-37) Alanine Aminotransferase (ALT/SGPT) 43 U/L (16-63) Alkaline Phosphatase 62 U/L (46-116) Total Protein 4.9 g/dL (6.4-8.2) Albumin 2.4 g/dL (3.4-5.0) Albumin/Globulin Ratio 1.0 (1.0-1.7) Test 07/14/21 02:16 07/14/21 08:00 Glucose (Fingerstick) 87 mg/dL (70-99) O2 Saturation 98 % (92-99) Arterial Blood pH 7.40 (7.35-7.45) Arterial Blood pCO2 at Patient Temp 40 mmHg (35-46) Arterial Blood pO2 at Patient Temp 105 mmHg (65-108) Arterial Blood HCO3 24 mmol/L (21-28) Arterial Blood Base Excess -1 mmol/L (-3-3) FiO2 50% ac 16 400 5 Laboratory Tests Test 07/14/21 02:16 07/14/21 08:00 Glucose (Fingerstick) 87 mg/dL (70-99) O2 Saturation 98 % (92-99) Arterial Blood pH 7.40 (7.35-7.45) Arterial Blood pCO2 at Patient Temp 40 mmHg (35-46) Arterial Blood pO2 at Patient Temp 105 mmHg (65-108) Arterial Blood HCO3 24 mmol/L (21-28) Arterial Blood Base Excess -1 mmol/L (-3-3) FiO2 50% ac 16 400 5 Assessment/Plan critical monitoring prognosis guarded Justicifation of Admission Dx: Justifications for Admission: Justification of Admission Dx: Yes Sepsis: Hemodynamic Instability KOURTNEY SNIDER ENROLLER Jul 14, 2021 08:39
--- NOTE | 2021-07-14 10:41 | EKG ---
[facility] [address] [place] [address] Test Date: 2021-07-14 Test Time: 10:37:25 Pat Name: AZEB COOMBS Department: Room: [facility] Gender: M Jewelry Enameler: S[place] : 1935 Requested By: BUTCH HILL Order Number: [id number] Reading MD: Everardo Ewing Measurements Intervals [place] Rate: 118 P: [place]: QRS: -20 QRSD: 68 T: 31 QT: 354 QTc: 499 Interpretive Statements ATRIAL FIBRILLATION NON SPECIFIC ST-T WAVE CHANGES Electronically Signed On 07-15-2021 16:40:08 CDT by Everardo Ewing
--- NOTE | 2021-07-14 10:50 | PDOC2 ---
CONSULT Date of Consult Date of Consult DATE: 07/14/21 TIME: 10:39 Reason for Consult Reason for Consult: SHELDON Identification/Chief Complaint Chief Complaint Intubated/MV Source Source: Caregiver History of Present Illness Reason for Visit: 85-year-old gentleman who was transferred from [facility]. The patient presented there with abdominal pain.He was evaluated by the ER physician at [facility] where he was found to have generalized abdominal pain, some focal rebound finding the periumbilical area and right upper quadrant. No history of tarry stools. No fever or chills. nO n/v. No urinary complaints per report Evaluation showed that he had a perforated viscus. 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 The patient is hypotensive requiring vasopressor support in ICU, intubated. obtained through chart review and discussing with the patient's RN. Past Medical History Cardiovascular: HTN GI: Gastritis, Peptic Ulcer disease Rheumatologic: Rheumatoid arthritis Renal/: Prostate Ca. (suspect metastatic) Past Surgical History Past Surgical History: Hernia Repair Family History Family History: No Significant Social History No ALCOHOL: none Drugs: None Current Medications Current Medications Current Medications Ceftriaxone Sodium (Rocephin) 2 gm Q24H IVP Last administered on 07/13/21at 06:30; Start 07/12/21 at 07:00; Stop 07/13/21 at 09:46; Status DC Metronidazole 100 ml @ 100 mls/hr Q8HRS IV Last administered on 07/13/21at 06:15; Start 07/12/21 at 14:00; Stop 07/13/21 at 09:46; Status DC Morphine Sulfate (Morphine Sulfate) 4 mg PRN Q4HRS PRN IVP SEVERE PAIN 7-10 Last administered on 07/12/21at 06:59; Start 07/12/21 at 06:15; Stop 07/12/21 at 13:52; Status DC Ondansetron HCl (Zofran) 4 mg PRN Q4HRS PRN IVP NAUSEA/VOMITING 1ST CHOICE Last administered on 07/12/21at 07:02; Start 07/12/21 at 06:15; Stop 07/12/21 at 13:03; Status DC Sodium Chloride 1,000 ml @ 150 mls/hr Q6H40M IV Last administered on 07/14/21at 06:48; Start 07/12/21 at 06:15 Piperacillin Sod/ Tazobactam Sod 2.25 gm/Sodium Chloride 50 ml @ 100 mls/hr Q8HRS IV Last administered on 07/13/21at 05:37; Start 07/12/21 at 14:00; Stop 07/13/21 at 11:36; Status DC Propofol (Diprivan) 200 mg STK-MED ONCE IV ; Start 07/12/21 at 07:43; Stop 07/12/21 at 07:44; Status DC Ondansetron HCl (Zofran) 4 mg STK-MED ONCE .ROUTE ; Start 07/12/21 at 07:43; Stop 07/12/21 at 07:44; Status DC Dexamethasone Sodium Phosphate (Decadron) 4 mg STK-MED ONCE .ROUTE ; Start 07/12/21 at 07:43; Stop 07/12/21 at 07:44; Status DC Succinylcholine Chloride (Anectine) 200 mg STK-MED ONCE .ROUTE ; Start 07/12/21 at 07:44; Stop 07/12/21 at 07:44; Status DC Neostigmine [place] (Neostigmine Methylsulfate) 5 mg STK-MED ONCE .ROUTE ; Start 07/12/21 at 07:44; Stop 07/12/21 at 07:44; Status DC Rocuronium [place] (Zemuron) 50 mg STK-MED ONCE .ROUTE ; Start 07/12/21 at 07:44; Stop 07/12/21 at 07:44; Status DC Fentanyl Citrate (Fentanyl 2ml Vial) 100 mcg STK-MED ONCE .ROUTE ; Start 07/12/21 at 07:44; Stop 07/12/21 at 07:44; Status DC Midazolam HCl (Versed) 2 mg STK-MED ONCE .ROUTE ; Start 07/12/21 at 07:44; Stop 07/12/21 at 07:44; Status DC Glycopyrrolate (Robinul) 1 mg STK-MED ONCE .ROUTE ; Start 07/12/21 at 07:45; Stop 07/12/21 at 07:45; Status DC Fentanyl Citrate (Fentanyl 2ml Vial) 25 mcg PRN Q5MIN PRN IVP MILD PAIN 1-3; Start 07/12/21 at 08:00; Stop 07/13/21 at 07:59; Status DC Fentanyl Citrate (Fentanyl 2ml Vial) 50 mcg PRN Q5MIN PRN IVP MODERATE PAIN 4- 6; Start 07/12/21 at 08:00; Stop 07/13/21 at 07:59; Status DC Morphine Sulfate (Morphine Sulfate) 1 mg PRN Q10MIN PRN IVP SEVERE PAIN 7-10; Start 07/12/21 at 08:00; Stop 07/13/21 at 07:59; Status DC Ringer's Solution 1,000 ml @ 30 mls/hr Q24H IV ; Start 07/12/21 at 08:00; Stop 07/12/21 at 19:59; Status DC Hydromorphone HCl (Dilaudid) 0.5 mg PRN Q10MIN PRN IVP SEVERE PAIN 7-10, 2nd CHOICE; Start 07/12/21 at 08:00; Stop 07/13/21 at 07:59; Status DC Prochlorperazine Edisylate (Compazine) 5 mg PACU PRN PRN IVP NAUSEA, MRX1; Start 07/12/21 at 08:00; Stop 07/13/21 at 07:59; Status DC Albumin Human 500 ml @ 125 mls/hr 1X ONCE IV Last administered on 07/12/21at 08:17; Start 07/12/21 at 08:15; Stop 07/12/21 at 12:14; Status DC Etomidate (Amidate) 20 mg STK-MED ONCE IV ; Start 07/12/21 at 08:30; Stop 07/12/21 at 08:30; Status DC Rocuronium [place] (Zemuron) 100 mg STK-MED ONCE .ROUTE ; Start 07/12/21 at 09:34; Stop 07/12/21 at 09:34; Status DC Phenylephrine HCl (PHENYLEPHRINE in 0.9% NACL PF) 1 mg STK-MED ONCE IV ; Start 07/12/21 at 10:27; Stop 07/12/21 at 10:27; Status DC Phenylephrine HCl (Lionel-Synephrine Inj) 10 mg STK-MED ONCE .ROUTE ; Start 07/12/21 at 10:27; Stop 07/12/21 at 10:27; Status DC Ephedrine Sulfate (ePHEDrine PF IN SALINE SYRINGE) 50 mg STK-MED ONCE IV ; Start 07/12/21 at 10:27; Stop 07/12/21 at 10:27; Status DC Albumin Human 500 ml @ As Directed STK-MED ONCE IV ; Start 07/12/21 at 11:15; Stop 07/12/21 at 11:16; Status DC Albumin Human 500 ml @ 500 mls/hr 1X ONCE IV Last administered on 07/12/21at 13:40; Start 07/12/21 at 11:30; Stop 07/12/21 at 12:29; Status DC Phenylephrine HCl (Lionel-Synephrine Inj) 10 mg STK-MED ONCE .ROUTE ; Start 07/12/21 at 11:54; Stop 07/12/21 at 11:55; Status DC Cefoxitin Sodium (Mefoxin) 1 gm Q6H IVP Last administered on 07/13/21at 01:47; Start 07/12/21 at 14:00; Stop 07/13/21 at 02:01; Status DC Famotidine (Pepcid Vial) 20 mg QHS IVP Last administered on 07/13/21at 22:10; Start 07/12/21 at 21:00 Enoxaparin Sodium (Lovenox 30mg Syringe) 30 mg Q24H SQ Last administered on 07/13/21at 22:10; Start 07/12/21 at 21:00 Sodium Chloride (Normal Saline Flush) 3 ml QSHIFT PRN IV AFTER MEDS AND BLOOD DRAWS; Start 07/12/21 at 12:15 Ringer's Solution 1,000 ml @ 100 mls/hr Q10H IV Last administered on 07/13/21at 10:39; Start 07/12/21 at 12:15; Stop 07/13/21 at 19:33; Status DC Naloxone HCl (Narcan) 0.4 mg PRN Q2MIN PRN IV SEE INSTRUCTIONS; Start 07/12/21 at 12:15 Sodium Chloride 1,000 ml @ 25 mls/hr Q24H IV ; Start 07/12/21 at 12:15; Stop 07/13/21 at 19:33; Status DC Morphine Sulfate (Morphine Sulfate) 1 mg PRN Q1HR PRN IV MODERATE PAIN; Start 07/12/21 at 12:15; Stop 07/12/21 at 13:51; Status DC Ondansetron HCl (Zofran) 4 mg PRN Q6HRS PRN IVP NAUESA, 1ST CHOICE; Start 07/12/21 at 12:15 Midazolam HCl 100 ml @ 1 mls/hr CONT PRN IV SEE PROTOCOL Last administered on 07/12/21at 16:55; Start 07/12/21 at 12:45 Propofol 100 ml @ 1.74 mls/hr CONT PRN IV PER PROTOCOL; Start 07/12/21 at 12:45 Glycerin/ Hypromellose/ Polyethylene (Artificial Tears) 1 drop PRN Q1HR PRN OU DRY EYE; Start 07/12/21 at 12:45 Albumin Human 500 ml @ 125 mls/hr 1X ONCE IV ; Start 07/12/21 at 12:45; Stop 07/12/21 at 16:44; Status DC Fentanyl Citrate 30 ml @ 0 mls/hr CONT PRN IV SEE PROTOCOL Last administered on 07/12/21at 23:40; Start 07/12/21 at 13:15; Stop 07/13/21 at 10:16; Status DC Sodium Bicarbonate (Sodium Bicarb Adult 8.4% Syr) 50 meq STK-MED ONCE .ROUTE ; Start 07/12/21 at 13:28; Stop 07/12/21 at 13:28; Status DC Sodium Bicarbonate (Sodium Bicarb Adult 8.4% Syr) 50 meq 1X ONCE IV Last administered on 07/12/21at 13:40; Start 07/12/21 at 13:45; Stop 07/12/21 at 13:46; Status DC Sodium Bicarbonate 150 meq/Dextrose 1,150 ml @ 75 mls/hr [id number] IV Last administered on 07/13/21at 05:37; Start 07/12/21 at 14:30; Stop 07/13/21 at 19:34; Status DC Norepinephrine Bitartrate 8 mg/ Dextrose 258 ml @ 11.204 mls/ hr CONT PRN IV PER PROTOCOL Last administered on 07/14/21at 00:11; Start 07/12/21 at 13:45 Fentanyl Citrate (Fentanyl 2ml Vial) 50 mcg 1X ONCE IVP ; Start 07/12/21 at 14:15; Stop 07/12/21 at 14:16; Status DC Sodium Bicarbonate (Sodium Bicarb Adult 8.4% Syr) 50 meq STK-MED ONCE .ROUTE ; Start 07/12/21 at 21:15; Stop 07/12/21 at 21:15; Status DC Sevoflurane (Ultane) 60 ml STK-MED ONCE IH ; Start 07/12/21 at 21:15; Stop 07/12/21 at 21:15; Status DC Digoxin (Lanoxin) 500 mcg 1X ONCE IV Last administered on 07/13/21at 03:22; Start 07/13/21 at 03:30; Stop 07/13/21 at 03:31; Status DC Fentanyl Citrate 55 ml @ 1 mls/hr CONT PRN IV SEE PROTOCOL Last administered on 07/14/21at 07:53; Start 07/13/21 at 10:30 Piperacillin Sod/ Tazobactam Sod 2.25 gm/Sodium Chloride 50 ml @ 100 mls/hr Q6HRS IV Last administered on 07/14/21at 05:29; Start 07/13/21 at 12:00 Propofol (Diprivan) 1,000 mg STK-MED ONCE IV ; Start 07/12/21 at 13:00; Stop 07/13/21 at 12:22; Status DC Digoxin (Lanoxin) 500 mcg 1X ONCE IV Last administered on 07/14/21at 04:40; Start 07/14/21 at 04:30; Stop 07/14/21 at 04:31; Status DC Active Scripts Active [Pantoprazole] 40 MG Tablet.dr 40 Mg PO BIDBFRMEAL Carafate (Sucralfate) 1 Gm/10 Ml Oral.susp 1 Gm PO TIDBFRMEAL Reported Avalide 150-12.5 Mg Tablet (Irbesartan/Hydrochlorothiazide) 1 Each Tablet 1 Each PO DAILY Allergies Allergies: Coded Allergies: No Known Drug Allergies (Unverified , 06/21/17) ROS Review of System Unable to Obtain from patient Physical Exam Physical Exam GENERAL: Sedated, orally intubated HEENT: Both pupils are round and reacting. orally intubated. NECK: Supple, no JVP, LUNGS: Clear. Decreased breath sounds. HEART: S1, S2 regular. No gallop or murmur. ABDOMEN: Multiple tubes in the post-surgical dressing EXTREMITIES: No edema, cyanosis. SKIN: Unremarkable. NEUROLOGIC: sedated and intubated. [place] + Vital Signs Vital Signs Date Time Temp Pulse Resp B/P (MAP) Pulse Ox O2 Delivery O2 Flow Rate FiO2 07/14/21 09:03 116 87/47 07/14/21 08:15 Ventilator 07/14/21 08:05 100.2 16 100 100.2 Assessment & Plan SHELDON-- ATN/ Hypotensive/Bowel perf . UA unremarkable , CT scan No e/o BALLARD/Hydronephrosis . E-Lytes stable . Supportive care, IVF , Monitor SHELDON in 2018, resolved. No Interval labs available Renal Calculus 5 mm nonobstructing calculus is seen involving the lower pole of the right kidney. Perforated viscus, status post exploratory laparotomy, reduction of gastric volvulus, hiatal hernia repair, gastrostomy tube placement and duodenoscopy with tube placement done. Hypotension, requiring vasopressor support. Acute Respiratory failure, requiring ventilatory support. History of prostate cancer. Labs Labs lab work showed that his white cell count was only 6.9, hemoglobin 17, hematocrit 53, and MCV 89 with a platelet of 384. His chemistry showed that he has mild hyponatremia and chronic kidney disease versus acute on chronic kidney disease, slightly elevated liver enzymes. His prothrombin time, INR and APTT were normal. Urinalysis essentially unremarkable and his coronavirus by rapid antigen testing was negative. Influenza A and B were negative. Did have a CT scan, acute abdomen series, which showed that patient has no acute radiographic abnormality and large hiatal hernia, unchanged with nonobstructive bowel gas Laboratory Tests Test 07/12/21 12:52 07/12/21 12:55 07/12/21 18:05 07/12/21 23:36 White Blood Count 3.5 x10^3/uL (4.0-11.0) Red Blood Count 5.69 x10^6/uL (4.30-5.70) Hemoglobin 16.4 g/dL (13.0-17.5) Hematocrit 49.9 % (39.0-53.0) Mean Corpuscular Volume 88 fL (79-100) Mean Corpuscular Hemoglobin 29 pg (25-35) Mean Corpuscular Hemoglobin Concent 33 g/dL (31-37) Red Cell Distribution Width 14.8 % (11.5-14.5) Platelet Count 246 x10^3/uL (140-400) Neutrophils (%) (Auto) 75 % (31-73) Lymphocytes (%) (Auto) 17 % (24-48) Monocytes (%) (Auto) 8 % (0-9) Eosinophils (%) (Auto) 0 % (0-3) Basophils (%) (Auto) 0 % (0-3) Neutrophils # (Auto) 2.6 x10^3/uL (1.8-7.7) Lymphocytes # (Auto) 0.6 x10^3/uL (1.0-4.8) Monocytes # (Auto) 0.3 x10^3/uL (0.0-1.1) Eosinophils # (Auto) 0.0 x10^3/uL (0.0-0.7) Basophils # (Auto) 0.0 x10^3/uL (0.0-0.2) Sodium Level 142 mmol/L (136-145) Potassium Level 3.8 mmol/L (3.5-5.1) Chloride Level 108 mmol/L (98-107) Carbon Dioxide Level 21 mmol/L (21-32) Anion Gap 13 (6-14) Blood Urea Nitrogen 44 mg/dL (8-26) Creatinine 1.9 mg/dL (0.7-1.3) Estimated GFR (Cockcroft-Gault) 33.9 Glucose Level 105 mg/dL (70-99) Lactic Acid Level 2.7 mmol/L (0.4-2.0) Calcium Level 7.6 mg/dL (8.5-10.1) O2 Saturation 95 % (92-99) 98 % (92-99) Arterial Blood pH 7.27 (7.35-7.45) 7.43 (7.35-7.45) Arterial Blood pCO2 at Patient Temp 39 mmHg (35-46) 27 mmHg (35-46) Arterial Blood pO2 at Patient Temp 80 mmHg (65-108) 90 mmHg (65-108) Arterial Blood HCO3 17 mmol/L (21-28) 18 mmol/L (21-28) Arterial Blood Base Excess -9 mmol/L (-3-3) -5 mmol/L (-3-3) FiO2 50% ac 20 400 5 50% ac 24, 400 5 Glucose (Fingerstick) 104 mg/dL (70-99) 117 mg/dL (70-99) Test 07/13/21 05:00 07/13/21 08:00 07/14/21 02:16 07/14/21 08:00 White Blood Count 7.5 x10^3/uL (4.0-11.0) Red Blood Count 5.03 x10^6/uL (4.30-5.70) Hemoglobin 14.5 g/dL (13.0-17.5) Hematocrit 43.4 % (39.0-53.0) Mean Corpuscular Volume 86 fL (79-100) Mean Corpuscular Hemoglobin 29 pg (25-35) Mean Corpuscular Hemoglobin Concent 33 g/dL (31-37) Red Cell Distribution Width 14.8 % (11.5-14.5) Platelet Count 281 x10^3/uL (140-400) Neutrophils (%) (Auto) 85 % (31-73) Lymphocytes (%) (Auto) 11 % (24-48) Monocytes (%) (Auto) 4 % (0-9) Eosinophils (%) (Auto) 0 % (0-3) Basophils (%) (Auto) 0 % (0-3) Neutrophils # (Auto) 6.4 x10^3/uL (1.8-7.7) Lymphocytes # (Auto) 0.8 x10^3/uL (1.0-4.8) Monocytes # (Auto) 0.3 x10^3/uL (0.0-1.1) Eosinophils # (Auto) 0.0 x10^3/uL (0.0-0.7) Basophils # (Auto) 0.0 x10^3/uL (0.0-0.2) Segmented Neutrophils % 35 % (35-66) Band Neutrophils % 36 % (0-9) Lymphocytes % 21 % (24-48) Atypical Lymphocytes % (Manual) 1 % (0-0) Monocytes % 7 % (0-10) Toxic Vacuolation Present Platelet Estimate Adequate (ADEQUATE) Large Platelets Few Sodium Level 141 mmol/L (136-145) Potassium Level 3.5 mmol/L (3.5-5.1) Chloride Level 106 mmol/L (98-107) Carbon Dioxide Level 23 mmol/L (21-32) Anion Gap 12 (6-14) Blood Urea Nitrogen 42 mg/dL (8-26) Creatinine 2.2 mg/dL (0.7-1.3) Estimated GFR (Cockcroft-Gault) 28.6 BUN/Creatinine Ratio 19 (6-20) Glucose Level 130 mg/dL (70-99) Calcium Level 7.2 mg/dL (8.5-10.1) Phosphorus Level 4.0 mg/dL (2.6-4.7) Magnesium Level 1.7 mg/dL (1.8-2.4) Total Bilirubin 1.2 mg/dL (0.2-1.0) Aspartate Amino Transf (AST/SGOT) 112 U/L (15-37) Alanine Aminotransferase (ALT/SGPT) 43 U/L (16-63) Alkaline Phosphatase 62 U/L (46-116) Total Protein 4.9 g/dL (6.4-8.2) Albumin 2.4 g/dL (3.4-5.0) Albumin/Globulin Ratio 1.0 (1.0-1.7) O2 Saturation 97 % (92-99) 98 % (92-99) Arterial Blood pH 7.50 (7.35-7.45) 7.40 (7.35-7.45) Arterial Blood pCO2 at Patient Temp 29 mmHg (35-46) 40 mmHg (35-46) Arterial Blood pO2 at Patient Temp 87 mmHg (65-108) 105 mmHg (65-108) Arterial Blood HCO3 22 mmol/L (21-28) 24 mmol/L (21-28) Arterial Blood Base Excess 0 mmol/L (-3-3) -1 mmol/L (-3-3) FiO2 50% 50% ac 16 400 5 Glucose (Fingerstick) 87 mg/dL (70-99) Laboratory Tests Test 07/14/21 02:16 07/14/21 08:00 Glucose (Fingerstick) 87 mg/dL (70-99) O2 Saturation 98 % (92-99) Arterial Blood pH 7.40 (7.35-7.45) Arterial Blood pCO2 at Patient Temp 40 mmHg (35-46) Arterial Blood pO2 at Patient Temp 105 mmHg (65-108) Arterial Blood HCO3 24 mmol/L (21-28) Arterial Blood Base Excess -1 mmol/L (-3-3) FiO2 50% ac 16 400 5 Review All relevant outside records, renal labs, imaging studies, telemetry/EKG's were reviewed. Images Images CT scan of the abdomen and pelvis with oral contrast showed that the patient has development of a large volume pneumoperitoneum, which extends into a very large hiatal hernia sac, which contains the entirety of the stomach, free contrast as well as complex free fluid within the abdomen and pelvis with the suspected site of bowel perforation near the diaphragmatic hiatus in the expected region of the gastroesophageal junction. This may be ischemic in nature such as from twisting vasculature, possible associated infarction of the spleen. Redemonstration of multifocal metastatic disease as described on 06/28/2021. He has extensive vascular calcification, diffuse osteopenia and severe multifocal degenerative changes. CT scan of the abdomen and pelvis without contrast 06/19/2012 Clinical history: Abdominal pain for months with vomiting. Technique: Unenhanced, contiguous, 5 mm axial sections were obtained through the abdomen and pelvis. One or more of the following individualized dose reduction techniques were utilized for this study: 1. Automated exposure control. 2. Adjustment of the mA and/or kV according to patient size. 3. Use of iterative reconstruction technique. Findings: Images through the lung bases demonstrate minimal dependent subsegmental atelectasis. There is a large hiatal hernia. The majority of the stomach is within lower chest. The liver, spleen, pancreas, adrenal glands and left kidney within normal limits. A 5 mm nonobstructing calculus is seen involving the lower pole of the right kidney. Moderate atherosclerotic calcification of the abdominal aorta and its branches is noted. The abdominal aorta tapers normally. The gallbladder is contracted. No free fluid or free air is seen within the abdomen. There is no evidence of bowel obstruction. The appendix is well visualized and is within normal limits. There is a small fat-containing umbilical hernia which measures 2.4 cm in size. Images through the pelvis demonstrate the urinary bladder distended with urine. No free fluid is seen. Mild to moderate S-shaped curvature of the thoracolumbar spine is seen. Degenerative changes are seen involving the lower thoracic and throughout the lumbar spine and both hips. Impression: No acute abnormality is seen. JENNIE MOODY MD Jul 14, 2021 10:50
--- NOTE | 2021-07-14 10:57 | PDOC ---
PULMONARY PROGRESS NOTES DATE: 07/14/21 TIME: 10:55 Subjective Patient currently sedated, IV sodium bicarb, IV norepinephrine Vital signs are better ABG this morning has improved Vitals Vital Signs Date Time Temp Pulse Resp B/P (MAP) Pulse Ox O2 Delivery O2 Flow Rate FiO2 07/14/21 09:03 116 87/47 07/14/21 08:15 Ventilator 07/14/21 08:05 100.2 16 100 100.2 Lungs: Clear Cardiovascular: S1, S2 Abdomen: Soft, Other Extremities: Other Skin: Warm Labs Laboratory Tests Test 07/12/21 12:52 07/12/21 12:55 07/12/21 18:05 07/12/21 23:36 White Blood Count 3.5 x10^3/uL (4.0-11.0) Red Blood Count 5.69 x10^6/uL (4.30-5.70) Hemoglobin 16.4 g/dL (13.0-17.5) Hematocrit 49.9 % (39.0-53.0) Mean Corpuscular Volume 88 fL (79-100) Mean Corpuscular Hemoglobin 29 pg (25-35) Mean Corpuscular Hemoglobin Concent 33 g/dL (31-37) Red Cell Distribution Width 14.8 % (11.5-14.5) Platelet Count 246 x10^3/uL (140-400) Neutrophils (%) (Auto) 75 % (31-73) Lymphocytes (%) (Auto) 17 % (24-48) Monocytes (%) (Auto) 8 % (0-9) Eosinophils (%) (Auto) 0 % (0-3) Basophils (%) (Auto) 0 % (0-3) Neutrophils # (Auto) 2.6 x10^3/uL (1.8-7.7) Lymphocytes # (Auto) 0.6 x10^3/uL (1.0-4.8) Monocytes # (Auto) 0.3 x10^3/uL (0.0-1.1) Eosinophils # (Auto) 0.0 x10^3/uL (0.0-0.7) Basophils # (Auto) 0.0 x10^3/uL (0.0-0.2) Sodium Level 142 mmol/L (136-145) Potassium Level 3.8 mmol/L (3.5-5.1) Chloride Level 108 mmol/L (98-107) Carbon Dioxide Level 21 mmol/L (21-32) Anion Gap 13 (6-14) Blood Urea Nitrogen 44 mg/dL (8-26) Creatinine 1.9 mg/dL (0.7-1.3) Estimated GFR (Cockcroft-Gault) 33.9 Glucose Level 105 mg/dL (70-99) Lactic Acid Level 2.7 mmol/L (0.4-2.0) Calcium Level 7.6 mg/dL (8.5-10.1) O2 Saturation 95 % (92-99) 98 % (92-99) Arterial Blood pH 7.27 (7.35-7.45) 7.43 (7.35-7.45) Arterial Blood pCO2 at Patient Temp 39 mmHg (35-46) 27 mmHg (35-46) Arterial Blood pO2 at Patient Temp 80 mmHg (65-108) 90 mmHg (65-108) Arterial Blood HCO3 17 mmol/L (21-28) 18 mmol/L (21-28) Arterial Blood Base Excess -9 mmol/L (-3-3) -5 mmol/L (-3-3) FiO2 50% ac 20 400 5 50% ac 24, 400 5 Glucose (Fingerstick) 104 mg/dL (70-99) 117 mg/dL (70-99) Test 07/13/21 05:00 07/13/21 08:00 07/14/21 02:16 07/14/21 08:00 White Blood Count 7.5 x10^3/uL (4.0-11.0) Red Blood Count 5.03 x10^6/uL (4.30-5.70) Hemoglobin 14.5 g/dL (13.0-17.5) Hematocrit 43.4 % (39.0-53.0) Mean Corpuscular Volume 86 fL (79-100) Mean Corpuscular Hemoglobin 29 pg (25-35) Mean Corpuscular Hemoglobin Concent 33 g/dL (31-37) Red Cell Distribution Width 14.8 % (11.5-14.5) Platelet Count 281 x10^3/uL (140-400) Neutrophils (%) (Auto) 85 % (31-73) Lymphocytes (%) (Auto) 11 % (24-48) Monocytes (%) (Auto) 4 % (0-9) Eosinophils (%) (Auto) 0 % (0-3) Basophils (%) (Auto) 0 % (0-3) Neutrophils # (Auto) 6.4 x10^3/uL (1.8-7.7) Lymphocytes # (Auto) 0.8 x10^3/uL (1.0-4.8) Monocytes # (Auto) 0.3 x10^3/uL (0.0-1.1) Eosinophils # (Auto) 0.0 x10^3/uL (0.0-0.7) Basophils # (Auto) 0.0 x10^3/uL (0.0-0.2) Segmented Neutrophils % 35 % (35-66) Band Neutrophils % 36 % (0-9) Lymphocytes % 21 % (24-48) Atypical Lymphocytes % (Manual) 1 % (0-0) Monocytes % 7 % (0-10) Toxic Vacuolation Present Platelet Estimate Adequate (ADEQUATE) Large Platelets Few Sodium Level 141 mmol/L (136-145) Potassium Level 3.5 mmol/L (3.5-5.1) Chloride Level 106 mmol/L (98-107) Carbon Dioxide Level 23 mmol/L (21-32) Anion Gap 12 (6-14) Blood Urea Nitrogen 42 mg/dL (8-26) Creatinine 2.2 mg/dL (0.7-1.3) Estimated GFR (Cockcroft-Gault) 28.6 BUN/Creatinine Ratio 19 (6-20) Glucose Level 130 mg/dL (70-99) Calcium Level 7.2 mg/dL (8.5-10.1) Phosphorus Level 4.0 mg/dL (2.6-4.7) Magnesium Level 1.7 mg/dL (1.8-2.4) Total Bilirubin 1.2 mg/dL (0.2-1.0) Aspartate Amino Transf (AST/SGOT) 112 U/L (15-37) Alanine Aminotransferase (ALT/SGPT) 43 U/L (16-63) Alkaline Phosphatase 62 U/L (46-116) Total Protein 4.9 g/dL (6.4-8.2) Albumin 2.4 g/dL (3.4-5.0) Albumin/Globulin Ratio 1.0 (1.0-1.7) O2 Saturation 97 % (92-99) 98 % (92-99) Arterial Blood pH 7.50 (7.35-7.45) 7.40 (7.35-7.45) Arterial Blood pCO2 at Patient Temp 29 mmHg (35-46) 40 mmHg (35-46) Arterial Blood pO2 at Patient Temp 87 mmHg (65-108) 105 mmHg (65-108) Arterial Blood HCO3 22 mmol/L (21-28) 24 mmol/L (21-28) Arterial Blood Base Excess 0 mmol/L (-3-3) -1 mmol/L (-3-3) FiO2 50% 50% ac 16 400 5 Glucose (Fingerstick) 87 mg/dL (70-99) Laboratory Tests Test 07/14/21 02:16 07/14/21 08:00 Glucose (Fingerstick) 87 mg/dL (70-99) O2 Saturation 98 % (92-99) Arterial Blood pH 7.40 (7.35-7.45) Arterial Blood pCO2 at Patient Temp 40 mmHg (35-46) Arterial Blood pO2 at Patient Temp 105 mmHg (65-108) Arterial Blood HCO3 24 mmol/L (21-28) Arterial Blood Base Excess -1 mmol/L (-3-3) FiO2 50% ac 16 400 5 Medications Active Scripts Medications Dose Route/Sig Max Daily Dose Days Date Category [Pantoprazole] 40 MG Tablet.dr 40 Mg PO BIDBFRMEAL 06/22/17 Rx Carafate (Sucralfate) 1 Gm/10 Ml Oral.susp 1 Gm PO TIDBFRMEAL 06/22/17 Rx Avalide 150-12.5 Mg Tablet (Irbesartan/Hydrochlorothiazide) 1 Each Tablet 1 Each PO DAILY 06/19/17 Reported Impression . Acute respiratory failure multifactorial status post exploratory laparotomy for perforated viscus Septic shock Lactic acidosis Abnormal x-ray Respiratory alkalosis Acute renal failure History of prostate cancer Severe protein malnutrition present upon admission IMPRESSION: 1. Stable life support devices. 2. Increasing bibasilar opacities. 3. Increased small left pleural effusion. \ Plan . Continue present assist-control mode. Oxygen requirement is stable. Wean off Levophed. Keep mean arterial pressure above 60. Empiric antibiotics Follow-up on cultures Follow-up on final pathology report We will start weaning sedation and assess mental status. Total cumulative critical care time was 30 minutes, discussed with RN and RT. YASMIN WEAVER MD Jul 14, 2021 10:57
--- NOTE | 2021-07-14 12:06 | PDOC ---
Infectious Disease Note Subjective Subjective Pt is intubated on vent ROS ROS no n/v/d/ Vital Sign Vital Signs Vital Signs Date Time Temp Pulse Resp B/P (MAP) Pulse Ox O2 Delivery O2 Flow Rate FiO2 07/14/21 12:02 107 130/43 07/14/21 11:20 100 Ventilator 07/14/21 11:00 16 07/14/21 08:05 100.2 100.2 Physical Exam PHYSICAL EXAM GENERAL: Sedated, orally intubated gentleman, not in distress. VITAL SIGNS: stable HEENT: Both pupils are round and reacting. No conjunctival lesion. No lesion in the mouth. Mouth cannot be visualized much as orally intubated. NECK: Supple, no JVP, no lymphadenopathy. LUNGS: Clear. Decreased breath sounds. HEART: S1, S2 regular. No gallop or murmur. ABDOMEN: Multiple tubes in the post-surgical dressing not opened. EXTREMITIES: No edema, cyanosis. SKIN: Unremarkable. NEUROLOGIC: The patient is not able to nib adjuster since sedated and intubated. Labs Lab Laboratory Tests Test 07/14/21 02:16 07/14/21 08:00 Glucose (Fingerstick) 87 mg/dL (70-99) O2 Saturation 98 % (92-99) Arterial Blood pH 7.40 (7.35-7.45) Arterial Blood pCO2 at Patient Temp 40 mmHg (35-46) Arterial Blood pO2 at Patient Temp 105 mmHg (65-108) Arterial Blood HCO3 24 mmol/L (21-28) Arterial Blood Base Excess -1 mmol/L (-3-3) FiO2 50% ac 16 400 5 Objective Assessment IMPRESSION: 1. Perforated viscus, status post exploratory laparotomy, reduction of gastric volvulus, hiatal hernia repair, gastrostomy tube placement and duodenoscopy with tube placement done. 2. Hypotension, requiring vasopressor support. 3. Respiratory failure, requiring ventilatory support. 4. Renal failure. 5. History of prostate cancer. Plan Plan of Care cont antibiotics cont supportive care NYLA MOSS MD Jul 14, 2021 12:06
[2021-07-14] MEDS ORDERED: MAGNESIUM SULFATE 2GM 50 ML IV ONE (12:30)
[2021-07-14] MEDS ORDERED: IV NORMAL SALINE 1000ML BAG 1,000 ML IV ONE ×2 (12:30→15:30)
[2021-07-14] MEDS ORDERED: IV NORMAL SALINE 500ML BAG 500 ML IV ONE (15:30)
[2021-07-14] MEDS: FAMOTIDINE 20 MG/2 ML VIAL IVP SCH (22:03)
[2021-07-14] MEDS: ENOXAPARIN 30 MG/0.3 ML SYRINGE. SQ SCH (22:03)
[2021-07-15] VITALS (24 sets, daily range): BP systolic 115–156; BP diastolic 44–66
[2021-07-15] MEDS: NOREPINEPHRINE VIAL 32 MG in IV D5W 250ML IV PRN (04:15)
[2021-07-15] MEDS: IV NORMAL SALINE 1000ML BAG 1,000 ML IV SCH ×4 (05:33→21:05)
[2021-07-15] MEDS: PIPERACILLIN/TAZOBACTAM 2.25 GM in IV NORMAL SALINE 50ML 50 ML IV SCH ×3 (05:35→18:13)
[2021-07-15] MEDS: fentaNYL HIGH DOSE PCA 55 ML IV PRN (06:00)
--- NOTE | 2021-07-15 06:41 | RAD ---
Study: XR CHEST 1V Indication: Status post surgery. Comparison: 07/14/2021 Findings: Well-positioned endotracheal tube and left subclavian central venous catheter. Slight increase of a small right pleural effusion. Similarly sized small left pleural effusion. Basil ar predominant airspace opacities similar on the left and slightly more prominent on the right. No pn eumothorax. Impression: 1. Well-positioned support devices. 2. Mildly increased small right pleural effusion and mild progression of hazy airspace opacification at the right lung base. Essentially unchanged small left pleural effusion and basilar predominant air space opacities. Electronically signed by: MARLEEN AMNDEL MD (07/15/2021 6:39 AM) [facility]
[2021-07-15 06:47] LABS: BASO % 0 % (0-3); EOS % 0 % (0-3); HEMATOCRIT 37.7 % (39.0-53.0); HEMOGLOBIN 12.6 g/dL (13.0-17.5); LYMPH # 0.6 x10^3/uL (1.0-4.8); LYMPH % 4 % (24-48); MEAN CORPUSCULAR HEMOGLOBIN 29 pg (25-35); MEAN CORPUSCULAR HGB CONC 33 g/dL (31-37); MEAN CORPUSCULAR VOLUME 86 fL (79-100); MONO # 0.8 x10^3/uL (0.0-1.1); MONO % 5 % (0-9); NEUT # 14.5 x10^3/uL (1.8-7.7); NEUT % 91 % (31-73); PLATELET COUNT 268 x10^3/uL (140-400); RED BLOOD COUNT 4.37 x10^6/uL (4.30-5.70)
[2021-07-15 07:26] LABS: ALBUMIN 1.3 g/dL (3.4-5.0); ALBUMIN/GLOBULIN RATIO 0.4 (1.0-1.7); CALCIUM 7.6 mg/dL (8.5-10.1); CREATININE 1.9 mg/dL (0.7-1.3); GFR 33.9; MAGNESIUM 2.2 mg/dL (1.8-2.4); POTASSIUM 3.5 mmol/L (3.5-5.1); TOTAL BILIRUBIN 1.5 mg/dL (0.2-1.0); TOTAL PROTEIN 4.8 g/dL (6.4-8.2)
[2021-07-15 08:42] LABS: BASE EXCESS ABG -4 mmol/L (-3-3); HCO3 ABG 20 mmol/L (21-28); PCO2 ABG 36 mmHg (35-46); PO2 ABG 86 mmHg (65-108); SAT O2 ABG 97 % (92-99)
--- NOTE | 2021-07-15 09:17 | PN ---
DATE: 07/14/2021 SUBJECTIVE: The patient continued to be sedated, intubated and mechanically ventilated. He continued to be also on Levophed. Nursing staff stated that his blood pressure plummets with any change in position. Also, his urine output is extremely poor with a total output of 680 daily although the intake was 3677. PHYSICAL EXAMINATION: GENERAL: When I examined him, he was pale, not jaundiced or cyanosed, no lymphadenopathy, no thyromegaly, no jugular venous distention. No lower limb edema. VITAL SIGNS: His heart rate was 132, blood pressure was 129/51, temperature was 100.2, respiratory rate was 16 and oxygen saturation was 100% on FiO2 of 40%. HEAD, EYES, EARS, NOSE, AND THROAT: Normocephalic, atraumatic. Has orotracheal orogastric tube in place. NECK: Supple. HEART: Normal first and second heart sounds. No gallop, rub or murmur. CHEST: Showed central trachea, equal bilateral chest expansion, air entry, vesicular breath sounds. I could not appreciate any crepitation or rhonchi anteriorly. ABDOMEN: Distended with a midline surgical incision covered with dressing. He has a gastrostomy tube and duodenostomy tube in place. NEUROLOGIC: He is heavily sedated. He is on Versed and fentanyl. His intake was 3677, output 680. LABORATORY DATA: This morning showed a white cell count 7.5, hemoglobin 14, hematocrit 43, MCV 86 and platelet count 281,000 with automated differential showed 85%, polymorphs 11%, lymphocytes 4%. His chemistry this morning showed serum sodium 141, potassium 3.5, chloride 106, bicarbonate 23, anion gap of 12, BUN 42, creatinine 2.2. Estimated GFR was 28 mL per minute, glucose 130, calcium was 7.2, phosphorus 4 and magnesium was 1.7. Total bilirubin , AST elevated. ALT and alkaline phosphatase are normal. Total protein 4.9, albumin was 2.4. Arterial blood gas this morning showed a pH of 7.4, pCO2 of 40, pO2 of 105, bicarbonate 24 and oxygen saturation was 98% on FiO2 of 40%. His chest x-ray showed unchanged airspace infiltrates and pleural effusion on the left. Slightly improved aeration of the right lung base and unchanged support device positioning as above. ASSESSMENT: In summary: 1. Perforated viscus status post exploratory laparotomy, reduction of gastric volvulus, hiatal hernia repair, gastrostomy tube placement and duodenostomy tube placement. 2. Acute hypoxic respiratory failure for which he was intubated and mechanically ventilated. He has continued to be heavily sedated. 3. Hypertension with likely sepsis for which he is on Levophed. 4. Acute kidney injury. Creatinine is rising, today is 2.2 with poor urine output. 5. The patient has a history of prostate cancer for which he underwent prostatectomy; however, he is known to have metastatic disease. 6. Other preexisting conditions include: A. Hypertension. B. Hiatal hernia. C. Gastroesophageal reflux disease. D. Gastric ulcer. E. Chronic constipation. PLAN: To continue with fentanyl and Versed for sedation. Continue with Levophed for blood pressure control. Continue with IV antibiotic in the form of Zosyn. So far, there are no blood cultures available. I have ordered a 500 mL bolus of normal saline. To continue with IV normal saline at 150 mL per hour. Overall, the patient's prognosis continues to be extremely poor. The input of the director instrumentation, infectious disease specialist and sand cleaning machine operator are greatly appreciated. EMIR/MANUEL DR: Marta TID: [id number]
--- NOTE | 2021-07-15 09:29 | PDOC ---
DATE OF SERVICE DATE: 07/15/21 TIME: 09:28 SUBJECTIVE ROS Intubated, on vent. Stable OBJECTIVE Vital Signs Vital Signs Date Time Temp Pulse Resp B/P (MAP) Pulse Ox O2 Delivery O2 Flow Rate FiO2 07/15/21 07:35 100 Ventilator 07/15/21 06:30 16 07/15/21 06:02 86 125/50 07/15/21 00:00 99.1 99.1 I & 0 Intake and Output 07/15/21 07:00 Intake Total 7638.86 ml Output Total 490 ml Balance 7148.86 ml IV Total 7638.86 ml Output Urine Total 490 ml PHYSICAL EXAM Physical Exam GENERAL: Sedated, orally intubated HEENT: Both pupils are round and reacting. orally intubated. NECK: Supple, no JVP, LUNGS: Clear. Decreased breath sounds. HEART: S1, S2 regular. No gallop or murmur. ABDOMEN: Multiple tubes in the post-surgical dressing EXTREMITIES: No edema, cyanosis. SKIN: Unremarkable. NEUROLOGIC: sedated and intubated. Carreno + DIAGNOSIS/ASSESSMENT Assessment & Plan SHELDON-- ATN/ Hypotensive/Bowel perf . UA unremarkable , CT scan No e/o BALLARD/Hydronephrosis , Requiring pressor . Creat trended down , stable E-Lytes stable . Supportive care, IVF , UOP Non Oliguric, marginal, Irrigate Carreno , Monitor SHELDON in 2018, resolved. No Interval labs available Renal Calculus 5 mm nonobstructing calculus is seen involving the lower pole of the right kidney. Perforated viscus, status post exploratory laparotomy, reduction of gastric volvulus, hiatal hernia repair, gastrostomy tube placement and duodenoscopy with tube placement done. Hypotension, requiring vasopressor support. Acute Respiratory failure, requiring ventilatory support. History of prostate cancer. COMMENT/RELEVANT DATA Meds Current Medications Medications (Trade) Dose Ordered Sig/Armin Start Time Stop Time Status Last Admin Dose Admin Albumin Human 500 ml @ 125 mls/hr 1X ONCE 07/12/21 12:45 07/12/21 16:44 DC Cefoxitin Sodium (Mefoxin) 1 gm Q6H 07/12/21 14:00 07/13/21 02:01 DC 07/13/21 01:47 1 GM Ceftriaxone Sodium (Rocephin) 2 gm Q24H 07/12/21 07:00 07/13/21 09:46 DC 07/13/21 06:30 2 GM Dexamethasone Sodium Phosphate (Decadron) 4 mg STK-MED ONCE 07/12/21 07:43 07/12/21 07:44 DC Digoxin (Lanoxin) 500 mcg 1X ONCE 07/14/21 04:30 07/14/21 04:31 DC 07/14/21 04:40 500 MCG Enoxaparin Sodium (Lovenox 30mg Syringe) 30 mg Q24H 07/12/21 21:00 07/14/21 22:03 30 MG Ephedrine Sulfate (ePHEDrine PF IN SALINE SYRINGE) 50 mg STK-MED ONCE 07/12/21 10:27 07/12/21 10:27 DC Etomidate (Amidate) 20 mg STK-MED ONCE 07/12/21 08:30 07/12/21 08:30 DC Famotidine (Pepcid Vial) 20 mg QHS 07/12/21 21:00 07/14/21 22:03 20 MG Fentanyl Citrate 55 ml @ 1 mls/hr CONT PRN 07/13/21 10:30 07/15/21 06:00 2.5 MLS/HR Fentanyl Citrate (Fentanyl 2ml Vial) 50 mcg 1X ONCE 07/12/21 14:15 07/12/21 14:16 DC Glycerin/ Hypromellose/ Polyethylene (Artificial Tears) 1 drop PRN Q1HR PRN 07/12/21 12:45 Glycopyrrolate (Robinul) 1 mg STK-MED ONCE 07/12/21 07:45 07/12/21 07:45 DC Hydromorphone HCl (Dilaudid) 0.5 mg PRN Q10MIN PRN 07/12/21 08:00 07/13/21 07:59 DC Magnesium Sulfate 50 ml @ 25 mls/hr 1X ONCE 07/14/21 12:30 07/14/21 14:29 DC 07/14/21 15:22 25 MLS/HR Metronidazole 100 ml @ 100 mls/hr Q8HRS 07/12/21 14:00 07/13/21 09:46 DC 07/13/21 06:15 100 MLS/HR Midazolam HCl 100 ml @ 1 mls/hr CONT PRN 07/12/21 12:45 07/12/21 16:55 1 MLS/HR Midazolam HCl (Versed) 2 mg STK-MED ONCE 07/12/21 07:44 07/12/21 07:44 DC Morphine Sulfate (Morphine Sulfate) 1 mg PRN Q1HR PRN 07/12/21 12:15 07/12/21 13:51 DC Naloxone HCl (Narcan) 0.4 mg PRN Q2MIN PRN 07/12/21 12:15 Neostigmine Hobson (Neostigmine Methylsulfate) 5 mg STK-MED ONCE 07/12/21 07:44 07/12/21 07:44 DC Norepinephrine Bitartrate 32 mg/ Dextrose 250 ml @ 3.192 mls/ hr CONT PRN 07/15/21 03:30 07/15/21 04:15 15.961 MLS/HR Norepinephrine Bitartrate 8 mg/ Dextrose 258 ml @ 11.204 mls/ hr CONT PRN 07/12/21 13:45 07/15/21 03:14 DC 07/14/21 23:22 56.018 MLS/HR Ondansetron HCl (Zofran) 4 mg PRN Q6HRS PRN 07/12/21 12:15 Phenylephrine HCl (Lionel-Synephrine Inj) 10 mg STK-MED ONCE 07/12/21 11:54 07/12/21 11:55 DC Phenylephrine HCl (PHENYLEPHRINE in 0.9% NACL PF) 1 mg STK-MED ONCE 07/12/21 10:27 07/12/21 10:27 DC Piperacillin Sod/ Tazobactam Sod 2.25 gm/Sodium Chloride 50 ml @ 100 mls/hr Q6HRS 07/13/21 12:00 07/15/21 05:35 100 MLS/HR Prochlorperazine Edisylate (Compazine) 5 mg PACU PRN PRN 07/12/21 08:00 07/13/21 07:59 DC Propofol (Diprivan) 1,000 mg STK-MED ONCE 07/12/21 13:00 07/13/21 12:22 DC Ringer's Solution 1,000 ml @ 100 mls/hr Q10H 07/12/21 12:15 07/13/21 19:33 DC 07/13/21 10:39 100 MLS/HR Rocuronium Hobson (Zemuron) 100 mg STK-MED ONCE 07/12/21 09:34 07/12/21 09:34 DC Sevoflurane (Ultane) 60 ml STK-MED ONCE 07/12/21 21:15 07/12/21 21:15 DC Sodium Bicarbonate 150 meq/Dextrose 1,150 ml @ 75 mls/hr [id number] 07/12/21 14:30 07/13/21 19:34 DC 07/13/21 05:37 75 MLS/HR Sodium Bicarbonate (Sodium Bicarb Adult 8.4% Syr) 50 meq STK-MED ONCE 07/12/21 21:15 07/12/21 21:15 DC Sodium Chloride 500 ml @ 500 mls/hr 1X ONCE 07/14/21 15:30 07/14/21 16:29 DC 07/14/21 12:15 500 MLS/HR Sodium Chloride (Normal Saline Flush) 3 ml QSHIFT PRN 07/12/21 12:15 Succinylcholine Chloride (Anectine) 200 mg STK-MED ONCE 07/12/21 07:44 07/12/21 07:44 DC Lab Laboratory Tests Test 07/15/21 05:45 07/15/21 05:49 White Blood Count 16.0 x10^3/uL (4.0-11.0) Red Blood Count 4.37 x10^6/uL (4.30-5.70) Hemoglobin 12.6 g/dL (13.0-17.5) Hematocrit 37.7 % (39.0-53.0) Mean Corpuscular Volume 86 fL (79-100) Mean Corpuscular Hemoglobin 29 pg (25-35) Mean Corpuscular Hemoglobin Concent 33 g/dL (31-37) Red Cell Distribution Width 15.0 % (11.5-14.5) Platelet Count 268 x10^3/uL (140-400) Neutrophils (%) (Auto) 91 % (31-73) Lymphocytes (%) (Auto) 4 % (24-48) Monocytes (%) (Auto) 5 % (0-9) Eosinophils (%) (Auto) 0 % (0-3) Basophils (%) (Auto) 0 % (0-3) Neutrophils # (Auto) 14.5 x10^3/uL (1.8-7.7) Lymphocytes # (Auto) 0.6 x10^3/uL (1.0-4.8) Monocytes # (Auto) 0.8 x10^3/uL (0.0-1.1) Eosinophils # (Auto) 0.0 x10^3/uL (0.0-0.7) Basophils # (Auto) 0.0 x10^3/uL (0.0-0.2) Sodium Level 139 mmol/L (136-145) Potassium Level 3.5 mmol/L (3.5-5.1) Chloride Level 106 mmol/L (98-107) Carbon Dioxide Level 23 mmol/L (21-32) Anion Gap 10 (6-14) Blood Urea Nitrogen 40 mg/dL (8-26) Creatinine 1.9 mg/dL (0.7-1.3) Estimated GFR (Cockcroft-Gault) 33.9 BUN/Creatinine Ratio 21 (6-20) Glucose Level 107 mg/dL (70-99) Calcium Level 7.6 mg/dL (8.5-10.1) Phosphorus Level 4.0 mg/dL (2.6-4.7) Magnesium Level 2.2 mg/dL (1.8-2.4) Total Bilirubin 1.5 mg/dL (0.2-1.0) Aspartate Amino Transf (AST/SGOT) 76 U/L (15-37) Alanine Aminotransferase (ALT/SGPT) 32 U/L (16-63) Alkaline Phosphatase 83 U/L (46-116) Total Protein 4.8 g/dL (6.4-8.2) Albumin 1.3 g/dL (3.4-5.0) Albumin/Globulin Ratio 0.4 (1.0-1.7) Glucose (Fingerstick) 124 mg/dL (70-99) Results All relevant outside records, renal labs, imaging studies, telemetry/EKG's were reviewed. Justicifation of Admission Dx: Justifications for Admission: Justification of Admission Dx: Yes Sepsis: Hemodynamic Instability JENNIE MOODY MD Jul 15, 2021 09:28
--- NOTE | 2021-07-15 09:44 | PDOC ---
PULMONARY PROGRESS NOTES DATE: 07/15/21 TIME: 09:41 Subjective Patient currently sedated, IV norepinephrine Remains on assist control mode, 40% FiO2 Vitals Vital Signs Date Time Temp Pulse Resp B/P (MAP) Pulse Ox O2 Delivery O2 Flow Rate FiO2 07/15/21 07:35 100 Ventilator 07/15/21 06:30 16 07/15/21 06:02 86 125/50 07/15/21 00:00 99.1 99.1 Lungs: Clear Cardiovascular: S1, S2 Abdomen: Soft, Other (Distended) Extremities: Other Skin: Warm Labs Laboratory Tests Test 07/14/21 02:16 07/14/21 08:00 07/15/21 05:45 07/15/21 05:49 Glucose (Fingerstick) 87 mg/dL (70-99) 124 mg/dL (70-99) O2 Saturation 98 % (92-99) Arterial Blood pH 7.40 (7.35-7.45) Arterial Blood pCO2 at Patient Temp 40 mmHg (35-46) Arterial Blood pO2 at Patient Temp 105 mmHg (65-108) Arterial Blood HCO3 24 mmol/L (21-28) Arterial Blood Base Excess -1 mmol/L (-3-3) FiO2 50% ac 16 400 5 White Blood Count 16.0 x10^3/uL (4.0-11.0) Red Blood Count 4.37 x10^6/uL (4.30-5.70) Hemoglobin 12.6 g/dL (13.0-17.5) Hematocrit 37.7 % (39.0-53.0) Mean Corpuscular Volume 86 fL (79-100) Mean Corpuscular Hemoglobin 29 pg (25-35) Mean Corpuscular Hemoglobin Concent 33 g/dL (31-37) Red Cell Distribution Width 15.0 % (11.5-14.5) Platelet Count 268 x10^3/uL (140-400) Neutrophils (%) (Auto) 91 % (31-73) Lymphocytes (%) (Auto) 4 % (24-48) Monocytes (%) (Auto) 5 % (0-9) Eosinophils (%) (Auto) 0 % (0-3) Basophils (%) (Auto) 0 % (0-3) Neutrophils # (Auto) 14.5 x10^3/uL (1.8-7.7) Lymphocytes # (Auto) 0.6 x10^3/uL (1.0-4.8) Monocytes # (Auto) 0.8 x10^3/uL (0.0-1.1) Eosinophils # (Auto) 0.0 x10^3/uL (0.0-0.7) Basophils # (Auto) 0.0 x10^3/uL (0.0-0.2) Sodium Level 139 mmol/L (136-145) Potassium Level 3.5 mmol/L (3.5-5.1) Chloride Level 106 mmol/L (98-107) Carbon Dioxide Level 23 mmol/L (21-32) Anion Gap 10 (6-14) Blood Urea Nitrogen 40 mg/dL (8-26) Creatinine 1.9 mg/dL (0.7-1.3) Estimated GFR (Cockcroft-Gault) 33.9 BUN/Creatinine Ratio 21 (6-20) Glucose Level 107 mg/dL (70-99) Calcium Level 7.6 mg/dL (8.5-10.1) Phosphorus Level 4.0 mg/dL (2.6-4.7) Magnesium Level 2.2 mg/dL (1.8-2.4) Total Bilirubin 1.5 mg/dL (0.2-1.0) Aspartate Amino Transf (AST/SGOT) 76 U/L (15-37) Alanine Aminotransferase (ALT/SGPT) 32 U/L (16-63) Alkaline Phosphatase 83 U/L (46-116) Total Protein 4.8 g/dL (6.4-8.2) Albumin 1.3 g/dL (3.4-5.0) Albumin/Globulin Ratio 0.4 (1.0-1.7) Laboratory Tests Test 07/15/21 05:45 07/15/21 05:49 White Blood Count 16.0 x10^3/uL (4.0-11.0) Red Blood Count 4.37 x10^6/uL (4.30-5.70) Hemoglobin 12.6 g/dL (13.0-17.5) Hematocrit 37.7 % (39.0-53.0) Mean Corpuscular Volume 86 fL (79-100) Mean Corpuscular Hemoglobin 29 pg (25-35) Mean Corpuscular Hemoglobin Concent 33 g/dL (31-37) Red Cell Distribution Width 15.0 % (11.5-14.5) Platelet Count 268 x10^3/uL (140-400) Neutrophils (%) (Auto) 91 % (31-73) Lymphocytes (%) (Auto) 4 % (24-48) Monocytes (%) (Auto) 5 % (0-9) Eosinophils (%) (Auto) 0 % (0-3) Basophils (%) (Auto) 0 % (0-3) Neutrophils # (Auto) 14.5 x10^3/uL (1.8-7.7) Lymphocytes # (Auto) 0.6 x10^3/uL (1.0-4.8) Monocytes # (Auto) 0.8 x10^3/uL (0.0-1.1) Eosinophils # (Auto) 0.0 x10^3/uL (0.0-0.7) Basophils # (Auto) 0.0 x10^3/uL (0.0-0.2) Sodium Level 139 mmol/L (136-145) Potassium Level 3.5 mmol/L (3.5-5.1) Chloride Level 106 mmol/L (98-107) Carbon Dioxide Level 23 mmol/L (21-32) Anion Gap 10 (6-14) Blood Urea Nitrogen 40 mg/dL (8-26) Creatinine 1.9 mg/dL (0.7-1.3) Estimated GFR (Cockcroft-Gault) 33.9 BUN/Creatinine Ratio 21 (6-20) Glucose Level 107 mg/dL (70-99) Calcium Level 7.6 mg/dL (8.5-10.1) Phosphorus Level 4.0 mg/dL (2.6-4.7) Magnesium Level 2.2 mg/dL (1.8-2.4) Total Bilirubin 1.5 mg/dL (0.2-1.0) Aspartate Amino Transf (AST/SGOT) 76 U/L (15-37) Alanine Aminotransferase (ALT/SGPT) 32 U/L (16-63) Alkaline Phosphatase 83 U/L (46-116) Total Protein 4.8 g/dL (6.4-8.2) Albumin 1.3 g/dL (3.4-5.0) Albumin/Globulin Ratio 0.4 (1.0-1.7) Glucose (Fingerstick) 124 mg/dL (70-99) Medications Active Scripts Medications Dose Route/Sig Max Daily Dose Days Date Category [Pantoprazole] 40 MG Tablet.dr 40 Mg PO BIDBFRMEAL 06/22/17 Rx Carafate (Sucralfate) 1 Gm/10 Ml Oral.susp 1 Gm PO TIDBFRMEAL 06/22/17 Rx Avalide 150-12.5 Mg Tablet (Irbesartan/Hydrochlorothiazide) 1 Each Tablet 1 Each PO DAILY 06/19/17 Reported Comments Chest x-ray reviewed dated 07/15/2021. Increasing bilateral infiltrates and small effusions Impression . Acute respiratory failure multifactorial status post exploratory laparotomy for perforated viscus Septic shock. Patient is pressor dependent Lactic acidosis Acute renal failure History of prostate cancer Severe protein malnutrition present upon admission Abnormal chest x-ray consistent with increasing CHF \ Plan . Continue present assist-control mode. Oxygen requirement is stable. Will avoid further volume. Chest x-ray is slightly worse. Will try mild diuresis. We will try to wean off sedation. Wean off Levophed. Keep mean arterial pressure above 60. Empiric antibiotics Follow-up on cultures Follow-up on final pathology report We will start weaning sedation and assess mental status improves Total cumulative critical care time was 30 minutes, discussed with RN and RT. YASMIN WEAVER MD Jul 15, 2021 09:44
[2021-07-15] MEDS ORDERED: FUROSEMIDE 20 MG/2 ML VIAL. IVP ONE ×2 (10:00→18:30)
--- NOTE | 2021-07-15 10:10 | PDOC ---
SURGICAL PROGRESS NOTE DATE: 07/15/21 TIME: 10:09 Subjective sedated, vent d/w nursing still requiring pressors Vital Signs Vital Signs Date Time Temp Pulse Resp B/P (MAP) Pulse Ox O2 Delivery O2 Flow Rate FiO2 07/15/21 07:35 100 Ventilator 07/15/21 06:30 16 07/15/21 06:02 86 125/50 07/15/21 00:00 99.1 99.1 I&O Intake and Output 07/15/21 07:00 Intake Total 7638.86 ml Output Total 490 ml Balance 7148.86 ml IV Total 7638.86 ml Output Urine Total 490 ml General: Other (deated ) HEENT: Other (vent) Abdomen: Other (mildly distended, drains in place) Labs Laboratory Tests Test 07/14/21 02:16 07/14/21 08:00 07/15/21 05:45 07/15/21 05:49 Glucose (Fingerstick) 87 mg/dL (70-99) 124 mg/dL (70-99) O2 Saturation 98 % (92-99) Arterial Blood pH 7.40 (7.35-7.45) Arterial Blood pCO2 at Patient Temp 40 mmHg (35-46) Arterial Blood pO2 at Patient Temp 105 mmHg (65-108) Arterial Blood HCO3 24 mmol/L (21-28) Arterial Blood Base Excess -1 mmol/L (-3-3) FiO2 50% ac 16 400 5 White Blood Count 16.0 x10^3/uL (4.0-11.0) Red Blood Count 4.37 x10^6/uL (4.30-5.70) Hemoglobin 12.6 g/dL (13.0-17.5) Hematocrit 37.7 % (39.0-53.0) Mean Corpuscular Volume 86 fL (79-100) Mean Corpuscular Hemoglobin 29 pg (25-35) Mean Corpuscular Hemoglobin Concent 33 g/dL (31-37) Red Cell Distribution Width 15.0 % (11.5-14.5) Platelet Count 268 x10^3/uL (140-400) Neutrophils (%) (Auto) 91 % (31-73) Lymphocytes (%) (Auto) 4 % (24-48) Monocytes (%) (Auto) 5 % (0-9) Eosinophils (%) (Auto) 0 % (0-3) Basophils (%) (Auto) 0 % (0-3) Neutrophils # (Auto) 14.5 x10^3/uL (1.8-7.7) Lymphocytes # (Auto) 0.6 x10^3/uL (1.0-4.8) Monocytes # (Auto) 0.8 x10^3/uL (0.0-1.1) Eosinophils # (Auto) 0.0 x10^3/uL (0.0-0.7) Basophils # (Auto) 0.0 x10^3/uL (0.0-0.2) Sodium Level 139 mmol/L (136-145) Potassium Level 3.5 mmol/L (3.5-5.1) Chloride Level 106 mmol/L (98-107) Carbon Dioxide Level 23 mmol/L (21-32) Anion Gap 10 (6-14) Blood Urea Nitrogen 40 mg/dL (8-26) Creatinine 1.9 mg/dL (0.7-1.3) Estimated GFR (Cockcroft-Gault) 33.9 BUN/Creatinine Ratio 21 (6-20) Glucose Level 107 mg/dL (70-99) Calcium Level 7.6 mg/dL (8.5-10.1) Phosphorus Level 4.0 mg/dL (2.6-4.7) Magnesium Level 2.2 mg/dL (1.8-2.4) Total Bilirubin 1.5 mg/dL (0.2-1.0) Aspartate Amino Transf (AST/SGOT) 76 U/L (15-37) Alanine Aminotransferase (ALT/SGPT) 32 U/L (16-63) Alkaline Phosphatase 83 U/L (46-116) Total Protein 4.8 g/dL (6.4-8.2) Albumin 1.3 g/dL (3.4-5.0) Albumin/Globulin Ratio 0.4 (1.0-1.7) Laboratory Tests Test 07/15/21 05:45 07/15/21 05:49 White Blood Count 16.0 x10^3/uL (4.0-11.0) Red Blood Count 4.37 x10^6/uL (4.30-5.70) Hemoglobin 12.6 g/dL (13.0-17.5) Hematocrit 37.7 % (39.0-53.0) Mean Corpuscular Volume 86 fL (79-100) Mean Corpuscular Hemoglobin 29 pg (25-35) Mean Corpuscular Hemoglobin Concent 33 g/dL (31-37) Red Cell Distribution Width 15.0 % (11.5-14.5) Platelet Count 268 x10^3/uL (140-400) Neutrophils (%) (Auto) 91 % (31-73) Lymphocytes (%) (Auto) 4 % (24-48) Monocytes (%) (Auto) 5 % (0-9) Eosinophils (%) (Auto) 0 % (0-3) Basophils (%) (Auto) 0 % (0-3) Neutrophils # (Auto) 14.5 x10^3/uL (1.8-7.7) Lymphocytes # (Auto) 0.6 x10^3/uL (1.0-4.8) Monocytes # (Auto) 0.8 x10^3/uL (0.0-1.1) Eosinophils # (Auto) 0.0 x10^3/uL (0.0-0.7) Basophils # (Auto) 0.0 x10^3/uL (0.0-0.2) Sodium Level 139 mmol/L (136-145) Potassium Level 3.5 mmol/L (3.5-5.1) Chloride Level 106 mmol/L (98-107) Carbon Dioxide Level 23 mmol/L (21-32) Anion Gap 10 (6-14) Blood Urea Nitrogen 40 mg/dL (8-26) Creatinine 1.9 mg/dL (0.7-1.3) Estimated GFR (Cockcroft-Gault) 33.9 BUN/Creatinine Ratio 21 (6-20) Glucose Level 107 mg/dL (70-99) Calcium Level 7.6 mg/dL (8.5-10.1) Phosphorus Level 4.0 mg/dL (2.6-4.7) Magnesium Level 2.2 mg/dL (1.8-2.4) Total Bilirubin 1.5 mg/dL (0.2-1.0) Aspartate Amino Transf (AST/SGOT) 76 U/L (15-37) Alanine Aminotransferase (ALT/SGPT) 32 U/L (16-63) Alkaline Phosphatase 83 U/L (46-116) Total Protein 4.8 g/dL (6.4-8.2) Albumin 1.3 g/dL (3.4-5.0) Albumin/Globulin Ratio 0.4 (1.0-1.7) Glucose (Fingerstick) 124 mg/dL (70-99) Problem List ongoing critical care measures Justicifation of Admission Dx: Justifications for Admission: Justification of Admission Dx: Yes Sepsis: Hemodynamic Instability KOURTNEY SNIDER [employer]OR [employer] Jul 15, 2021 10:10
[2021-07-15] MEDS: TPN PER PHARMACY MC PRN (11:06)
--- NOTE | 2021-07-15 11:11 | NUR ---
Pharmacy TPN Dosing Note S: AZEB COOMBS is a 85 year old M Currently receiving Central Continuous TPN started 07/15/21 B:Pertinent PMH: NPO SINCE 07/12, PERFERATED BOWEL Current diet: NPO LABS: Sodium: 139 Potassium: 3.5 Chloride: 106 Calcium: 7.6 Corrected Calcium: 9.76 Magnesium: 2.2 CO2: 23 SCr: 1.9 Glucose: 124 Albumin: 1.3 AST: 76 ALT: 32 TPN FORMULA: TPN TYPE: Central Continuous AMINO ACIDS: 50 gm DEXTROSE: 165 gm LIPIDS: 20 gm SODIUM CHLORIDE: 90 mEq SODIUM ACETATE: -- mEq SODIUM PHOSPHATE: -- mmol POTASSIUM CHLORIDE: 50 mEq POTASSIUM ACETATE: -- mEq POTASSIUM PHOSPHATE: 13.6 mmol MAGNESIUM: 10 mEq CALCIUM: -- mEq INSULIN: -- units MULTIPLE VITAMIN: 10 ml TRACE ELEMENTS: 1 mL ml(s) TPN PLAN: 07/15 [facility] PER DISTRIBUTOR SALES MANAGER, STANDARD LYTES EXCEPT CALCIUM R: Begin TPN tonight Will monitor electrolytes, glucose, and tolerance to TPN. GLENN LENNON [facility], 07/15/21 1111
--- NOTE | 2021-07-15 11:18 | PN ---
DATE: 07/15/2021 SUBJECTIVE: The patient continues to be heavily sedated, intubated and mechanically ventilated. The patient continued to be oliguric. His intake yesterday was 5569, output was only 505; however, his kidney function, if anything is turning down. In fact, his creatinine came down from 2.2-1.9. I spoke with Dr. Perez and the plan was to discontinue the sedation and cut down the IV fluid. The dietitian wants to start him on TPN and maybe discontinue the normal saline altogether and start him on TPN for now and once the sedation is completely out, he will be in a better shape to assess his mental status. PHYSICAL EXAMINATION: GENERAL: When I examined him, he was pale, cachectic, but not jaundiced or cyanosed, no lymphadenopathy, no thyromegaly, no jugular venous distention, no lower limb edema. VITAL SIGNS: His heart rate was 86, blood pressure was 125/50, temperature was 99.1, respiratory rate was 16 and oxygen saturation was 100% on FiO2 of 40%. HEAD, EYES, EARS, NOSE AND THROAT: Normocephalic, atraumatic. He has orotracheal and orogastric tube in place. NECK: Supple. HEART: Normal first and second heart sounds. No gallop, rub or murmur. CHEST: Shows central trachea, equal bilateral chest expansion, air entry, vesicular breath sounds. I could not appreciate any crepitation or rhonchi. ABDOMEN: Distended, soft. He has a gastrostomy and jejunostomy tube in place. NEUROLOGIC: He continues to be heavily sedated. His intake was 5500, output was 500. LABORATORY DATA: As of this morning, his white cell count was 16,000, hemoglobin 13, hematocrit 38, MCV 86 and platelet count 268,000 with automated differential showed 91% polymorphs, 4% lymphocytes, 5% monocytes. His serum sodium was 139, potassium 3.5, chloride 106, bicarbonate 23, anion gap of 10, BUN 40, creatinine 1.9, estimated GFR was 33 mL per minute. His glucose 107, calcium was 7.6, phosphorus 4 and magnesium was 2.2. Total bilirubin is 1.5, AST slightly elevated. ALT and alkaline phosphatase normal. Total protein 4.8, albumin was 1.3. ASSESSMENT: 1. Perforated viscus, status post exploratory laparotomy, reduction of gastric volvulus, hiatal hernia repair, gastrostomy tube placement as well as jejunostomy tube placement. 2. Acute hypoxic respiratory failure, for which he was intubated and mechanically ventilated. He continues to be heavily sedated and mechanically ventilated. 3. Hypotension, likely due to sepsis, for which he is on Levophed. 4. Acute kidney injury. His creatinine is actually turning the corner, came down from 2.2-1.9. The patient has history of prostate cancer, for which he underwent prostatectomy and he is known to have metastatic disease. 5. Other medical problems include: A. Hypertension. The patient currently hypotensive. B. Hiatal hernia. C. Gastroesophageal reflux disease. D. Gastric ulcers. E. Chronic constipation. PLAN: Taper and discontinue the fentanyl and Versed. Continue with Levophed for blood pressure control. Continue with IV antibiotic in the form of Zosyn so far. His blood cultures are negative. I will start him on TPN. FELECIA DR: Marta TID: [id number]
--- NOTE | 2021-07-15 12:05 | PDOC ---
Infectious Disease Note Subjective Subjective Pt is intubated on vent ROS ROS no n/v/d/ Vital Sign Vital Signs Vital Signs Date Time Temp Pulse Resp B/P (MAP) Pulse Ox O2 Delivery O2 Flow Rate FiO2 07/15/21 11:53 99 Ventilator 07/15/21 06:30 16 07/15/21 06:02 86 125/50 07/15/21 00:00 99.1 99.1 Physical Exam PHYSICAL EXAM GENERAL: Sedated, orally intubated gentleman, not in distress. VITAL SIGNS: stable HEENT: Both pupils are round and reacting. No conjunctival lesion. No lesion in the mouth. Mouth cannot be visualized much as orally intubated. NECK: Supple, no JVP, no lymphadenopathy. LUNGS: Clear. Decreased breath sounds. HEART: S1, S2 regular. No gallop or murmur. ABDOMEN: Multiple tubes in the post-surgical dressing not opened. EXTREMITIES: No edema, cyanosis. SKIN: Unremarkable. NEUROLOGIC: The patient is not able to cable television access coordinator since sedated and intubated. Labs Lab Laboratory Tests Test 07/15/21 05:45 07/15/21 05:49 White Blood Count 16.0 x10^3/uL (4.0-11.0) Red Blood Count 4.37 x10^6/uL (4.30-5.70) Hemoglobin 12.6 g/dL (13.0-17.5) Hematocrit 37.7 % (39.0-53.0) Mean Corpuscular Volume 86 fL (79-100) Mean Corpuscular Hemoglobin 29 pg (25-35) Mean Corpuscular Hemoglobin Concent 33 g/dL (31-37) Red Cell Distribution Width 15.0 % (11.5-14.5) Platelet Count 268 x10^3/uL (140-400) Neutrophils (%) (Auto) 91 % (31-73) Lymphocytes (%) (Auto) 4 % (24-48) Monocytes (%) (Auto) 5 % (0-9) Eosinophils (%) (Auto) 0 % (0-3) Basophils (%) (Auto) 0 % (0-3) Neutrophils # (Auto) 14.5 x10^3/uL (1.8-7.7) Lymphocytes # (Auto) 0.6 x10^3/uL (1.0-4.8) Monocytes # (Auto) 0.8 x10^3/uL (0.0-1.1) Eosinophils # (Auto) 0.0 x10^3/uL (0.0-0.7) Basophils # (Auto) 0.0 x10^3/uL (0.0-0.2) Sodium Level 139 mmol/L (136-145) Potassium Level 3.5 mmol/L (3.5-5.1) Chloride Level 106 mmol/L (98-107) Carbon Dioxide Level 23 mmol/L (21-32) Anion Gap 10 (6-14) Blood Urea Nitrogen 40 mg/dL (8-26) Creatinine 1.9 mg/dL (0.7-1.3) Estimated GFR (Cockcroft-Gault) 33.9 BUN/Creatinine Ratio 21 (6-20) Glucose Level 107 mg/dL (70-99) Calcium Level 7.6 mg/dL (8.5-10.1) Phosphorus Level 4.0 mg/dL (2.6-4.7) Magnesium Level 2.2 mg/dL (1.8-2.4) Total Bilirubin 1.5 mg/dL (0.2-1.0) Aspartate Amino Transf (AST/SGOT) 76 U/L (15-37) Alanine Aminotransferase (ALT/SGPT) 32 U/L (16-63) Alkaline Phosphatase 83 U/L (46-116) Total Protein 4.8 g/dL (6.4-8.2) Albumin 1.3 g/dL (3.4-5.0) Albumin/Globulin Ratio 0.4 (1.0-1.7) Glucose (Fingerstick) 124 mg/dL (70-99) Objective Assessment IMPRESSION: 1. Perforated viscus, status post exploratory laparotomy, reduction of gastric volvulus, hiatal hernia repair, gastrostomy tube placement and duodenoscopy with tube placement done. 2. Hypotension, requiring vasopressor support. 3. Respiratory failure, requiring ventilatory support. 4. Renal failure. 5. History of prostate cancer. Plan Plan of Care cont antibiotics cont supportive care NYLA MOSS MD Jul 15, 2021 12:05
[2021-07-15 12:34] LABS: FIO2 ABG 40% AC16 400 +5
--- NOTE | 2021-07-15 16:11 | PATHOLOGY ---
[facility] Accession Number: [id number] . 01 Material submitted: . abdomen - MESENTERIC MASS. Modifiers: mesenteric . 01 Clinical history: . LAPAROTOMY/EXPLORATORY . 02 Diagnosis: Adipose tissue, mesenteric mass: - METASTATIC MELANOMA. SEE COMMENT. . (JPM:mml/didier; 07/14/2021) [facility] 07/15/2021 1445 Local . 02 Comment: Sections of the mesenteric mass excision reveal a metastatic malignant neoplasm which forms a well circumscribed nodule within adipose tissue. The neoplasm is composed of sheets of epithelioid cells having modest amounts of pale eosinophilic cytoplasm, and possessing enlarged, rounded to ovoid nuclei containing prominent nucleoli. Scattered tumor cells contain yellow-brown cytoplasmic pigment. There are mitotic figures present. A limited panel of immunoperoxidase stains is obtained on A1 and yields the following results: . AE1/AE3: Tumor cells negative SOX-10 red: Tumor cells positive MART-1: Tumor cells positive . The morphologic and immunophenotypic findings are supportive of the diagnosis of metastatic melanoma. The case is also examined by Dr. Dia, who concurs with the diagnosis. The results are reported to Dr. Medina on 07/15/2021 at 3:25 PM. (JPM:didier; 07/15/2021) . Special stains performed: Immunoperoxidase stains for AE1/AE3, SOX-10 red, and MART-1 on A1 . 02 Electronically signed: . Campbell Bear MD, Pathologist NPI- [id number] . 01 Gross description: . The specimen is received in formalin, labeled "Jossue [place], mesenteric mass" and consists of a pedunculated tissue (1.3 x 1.0 x 0.7 cm). The polypoid end is purple-brown, smooth and dusky. The stalk is apple-ortiz, dusky and friable. The surgical margin is inked green. The specimen is trisected to reveal diffusely brown, hemorrhagic cut surfaces. The specimen is submitted entirely in A1.([place]; 07/13/2021) DKA/DKA 07/13/2021 1650 Local . 02 Pathologist provided ICD-10: C78.6 . 02 CPT . 047567, T01762, H58609 Specimen Comment: A courtesy copy of this report has been sent to [phone] Specimen Comment: [phone], Specimen Comment: Report sent to , DR HILL / DR COLLINS Performed at: 01 [facility] [address], [place] [id number] MD Jordin Gomez MD Phone: [phone] Performed at: 02 [facility] [address] [place], [place] [id number] MD Campbell Bear MD Phone: [phone]
--- NOTE | 2021-07-15 18:31 | NUR ---
Note ...10AM lasix administered at 1830 per Gigi THAKKAR. Vesed down abd off [id number]. Fentanyl titrated to 0..5 ml or 25 mcg/Hr and left all day. Just now biting on swabs. Does not follow commands to blackener,open eye etc. Levo titrated 10.9 ml(0.4mcg) w BP [id number]/ 79-84. Cont pOC
[2021-07-15] MEDS: FAMOTIDINE 20 MG/2 ML VIAL IVP SCH (21:03)
[2021-07-15] MEDS: ENOXAPARIN 30 MG/0.3 ML SYRINGE. SQ SCH (21:04)
[2021-07-15] MEDS ORDERED: AMINO ACID IV SCH (22:00)
[2021-07-15] MEDS ORDERED: [UNRECOGNIZED DRUG - OTHER] IV SCH (22:00)
[2021-07-15] MEDS ORDERED: TOTAL PARENTERAL NUTRITION IV SCH (22:00)
[2021-07-15] MEDS ORDERED: DEXTROSE 70% IV SCH (22:00)
[2021-07-16] VITALS (24 sets, daily range): BP systolic 110–150; BP diastolic 50–72
[2021-07-16] MEDS: PIPERACILLIN/TAZOBACTAM 2.25 GM in IV NORMAL SALINE 50ML 50 ML IV SCH ×5 (00:25→23:37)
[2021-07-16] MEDS: IV NORMAL SALINE 1000ML BAG 1,000 ML IV SCH (04:36)
[2021-07-16 06:03] LABS: HEMATOCRIT 34.9 % (39.0-53.0); HEMOGLOBIN 12.2 g/dL (13.0-17.5); RED BLOOD COUNT 4.1 x10^6/uL (4.30-5.70); RED CELL DISTRIBUTION WIDTH 14.9 % (11.5-14.5); WHITE BLOOD COUNT 12.7 x10^3/uL (4.0-11.0)
[2021-07-16 06:11] LABS: ALBUMIN 1.2 g/dL (3.4-5.0); ALBUMIN/GLOBULIN RATIO 0.5 (1.0-1.7); CALCIUM 7.1 mg/dL (8.5-10.1); CREATININE 1.6 mg/dL (0.7-1.3); GFR 41.3; MAGNESIUM 2.2 mg/dL (1.8-2.4); PHOSPHORUS 2.8 mg/dL (2.6-4.7); POTASSIUM 3.5 mmol/L (3.5-5.1); TOTAL BILIRUBIN 2.2 mg/dL (0.2-1.0); TOTAL PROTEIN 3.8 g/dL (6.4-8.2)
--- NOTE | 2021-07-16 07:20 | RAD ---
Study: XR CHEST 1V Indication: Respiratory failure. Comparison: 07/15/2021 Findings: Endotracheal tube tip 6 cm above the ti. Left-sided PICC tip within the SVC. Improved aeration of the lower lungs. Similar pleural effusions. No pneumothorax. Unchanged cardiomed iastinal silhouette. Impression: 1. Adequate support device positioning. 2. Suspected decreasing pulmonary edema. Bilateral pleural effusions remain similar in size. Electronically signed by: MARLEEN MANDEL MD (07/16/2021 7:18 AM) [facility]
[2021-07-16 07:59] LABS: BASE EXCESS ABG -4 mmol/L (-3-3); HCO3 ABG 20 mmol/L (21-28); PCO2 ABG 33 mmHg (35-46); PO2 ABG 87 mmHg (65-108); SAT O2 ABG 97 % (92-99)
[2021-07-16 08:28] LABS: FIO2 ABG 40% VENT
[2021-07-16] MEDS: TPN PER PHARMACY MC PRN (09:44)
--- NOTE | 2021-07-16 09:44 | NUR ---
Pharmacy TPN Dosing Note S: AZEB COOMBS is a 85 year old M Currently receiving Central Continuous TPN started 07/15/21 B:Pertinent PMH: NPO SINCE 07/12, PERFORATED BOWEL Height: 6 feet, 2.9 inches Weight: 73.2 kg Current diet: NPO LABS: Sodium: 141 Potassium: 3.5 Chloride: 109 Calcium: 7.1 Corrected Calcium: 9.34 Magnesium: 2.2 CO2: 21 SCr: 1.6 Glucose: 158 Albumin: 1.2 AST: 61 ALT: 31 TPN FORMULA: TPN TYPE: Central Continuous AMINO ACIDS: 50 gm DEXTROSE: 165 gm LIPIDS: 20 gm SODIUM CHLORIDE: 70 mEq POTASSIUM CHLORIDE: 50 mEq POTASSIUM PHOSPHATE: 20 mmol MAGNESIUM: 10 mEq MULTIPLE VITAMIN: 10 ml TRACE ELEMENTS: 1 mL ml(s) TPN PLAN: 07/15 [facility] PER SUPERVISOR [employer]SE, STANDARD LYTES EXCEPT CALCIUM R: Continue TPN Will monitor electrolytes, glucose, and tolerance to TPN. ELIZABETH ALMAGUER [facility], 07/16/21 0944
--- NOTE | 2021-07-16 09:44 | PDOC ---
DATE OF SERVICE DATE: 07/16/21 TIME: 09:43 SUBJECTIVE ROS Intubated, on vent. Stable OBJECTIVE Vital Signs Vital Signs Date Time Temp Pulse Resp B/P (MAP) Pulse Ox O2 Delivery O2 Flow Rate FiO2 07/16/21 07:21 99 Ventilator 07/16/21 06:00 80 20 130/50 07/16/21 04:00 98.5 98.5 I & 0 Intake and Output 07/16/21 07:00 Intake Total 2062.58 ml Output Total 2065 ml Balance -2.42 ml Intake Oral 0 ml IV Total 2062.58 ml Output Urine Total 2065 ml PHYSICAL EXAM Physical Exam GENERAL: Sedated, orally intubated HEENT: Both pupils are round and reacting. orally intubated. NECK: Supple, no JVP, LUNGS: Clear. Decreased breath sounds. HEART: S1, S2 regular. No gallop or murmur. ABDOMEN: Multiple tubes in the post-surgical dressing EXTREMITIES: No edema, cyanosis. SKIN: Unremarkable. NEUROLOGIC: sedated and intubated. Carreno + DIAGNOSIS/ASSESSMENT Assessment & Plan SHELDON-- ATN/ Hypotensive/Bowel perf . UA unremarkable , CT scan No e/o BALLARD/Hydronephrosis , Creat trending down down , stable E-Lytes stable . Supportive care, IVF , UOP better, good response to lasix . SHELDON in 2018, resolved. No Interval labs available Renal Calculus 5 mm nonobstructing calculus is seen involving the lower pole of the right kidney. Perforated viscus, status post exploratory laparotomy, reduction of gastric volvulus, hiatal hernia repair, gastrostomy tube placement and duodenoscopy with tube placement done. Hypotension, requiring vasopressor support. Acute Respiratory failure, requiring ventilatory support. History of prostate cancer. COMMENT/RELEVANT DATA Meds Current Medications Medications (Trade) Dose Ordered Sig/Armin Start Time Stop Time Status Last Admin Dose Admin Albumin Human 500 ml @ 125 mls/hr 1X ONCE 07/12/21 12:45 07/12/21 16:44 DC Cefoxitin Sodium (Mefoxin) 1 gm Q6H 07/12/21 14:00 07/13/21 02:01 DC 07/13/21 01:47 1 GM Ceftriaxone Sodium (Rocephin) 2 gm Q24H 07/12/21 07:00 07/13/21 09:46 DC 07/13/21 06:30 2 GM Dexamethasone Sodium Phosphate (Decadron) 4 mg STK-MED ONCE 07/12/21 07:43 07/12/21 07:44 DC Digoxin (Lanoxin) 500 mcg 1X ONCE 07/14/21 04:30 07/14/21 04:31 DC 07/14/21 04:40 500 MCG Enoxaparin Sodium (Lovenox 30mg Syringe) 30 mg Q24H 07/12/21 21:00 07/16/21 09:07 DC 07/15/21 21:04 30 MG Enoxaparin Sodium (Lovenox 40mg Syringe) 40 mg Q24H 07/16/21 21:00 Ephedrine Sulfate (ePHEDrine PF IN SALINE SYRINGE) 50 mg STK-MED ONCE 07/12/21 10:27 07/12/21 10:27 DC Etomidate (Amidate) 20 mg STK-MED ONCE 07/12/21 08:30 07/12/21 08:30 DC Famotidine (Pepcid Vial) 20 mg QHS 07/12/21 21:00 07/15/21 21:03 20 MG Fentanyl Citrate 55 ml @ 1 mls/hr CONT PRN 07/13/21 10:30 07/15/21 06:00 2.5 MLS/HR Fentanyl Citrate (Fentanyl 2ml Vial) 50 mcg 1X ONCE 07/12/21 14:15 07/12/21 14:16 DC Furosemide (Lasix) 20 mg 1X ONCE 07/15/21 18:30 07/15/21 18:31 DC Glycerin/ Hypromellose/ Polyethylene (Artificial Tears) 1 drop PRN Q1HR PRN 07/12/21 12:45 Glycopyrrolate (Robinul) 1 mg STK-MED ONCE 07/12/21 07:45 07/12/21 07:45 DC Hydromorphone HCl (Dilaudid) 0.5 mg PRN Q10MIN PRN 07/12/21 08:00 07/13/21 07:59 DC Info (Tpn Per Pharmacy) 1 each PRN DAILY PRN 07/15/21 10:30 07/15/21 11:06 1 EACH Magnesium Sulfate 50 ml @ 25 mls/hr 1X ONCE 07/14/21 12:30 07/14/21 14:29 DC 07/14/21 15:22 25 MLS/HR Metronidazole 100 ml @ 100 mls/hr Q8HRS 07/12/21 14:00 07/13/21 09:46 DC 07/13/21 06:15 100 MLS/HR Midazolam HCl 100 ml @ 1 mls/hr CONT PRN 07/12/21 12:45 07/12/21 16:55 1 MLS/HR Midazolam HCl (Versed) 2 mg STK-MED ONCE 07/12/21 07:44 07/12/21 07:44 DC Morphine Sulfate (Morphine Sulfate) 1 mg PRN Q1HR PRN 07/12/21 12:15 07/12/21 13:51 DC Naloxone HCl (Narcan) 0.4 mg PRN Q2MIN PRN 07/12/21 12:15 Neostigmine [place] (Neostigmine Methylsulfate) 5 mg STK-MED ONCE 07/12/21 07:44 07/12/21 07:44 DC Norepinephrine Bitartrate 32 mg/ Dextrose 250 ml @ 3.192 mls/ hr CONT PRN 07/15/21 03:30 07/15/21 04:15 15.961 MLS/HR Norepinephrine Bitartrate 8 mg/ Dextrose 258 ml @ 11.204 mls/ hr CONT PRN 07/12/21 13:45 07/15/21 03:14 DC 07/14/21 23:22 56.018 MLS/HR Ondansetron HCl (Zofran) 4 mg PRN Q6HRS PRN 07/12/21 12:15 Phenylephrine HCl (Lionel-Synephrine Inj) 10 mg STK-MED ONCE 07/12/21 11:54 07/12/21 11:55 DC Phenylephrine HCl (PHENYLEPHRINE in 0.9% NACL PF) 1 mg STK-MED ONCE 07/12/21 10:27 07/12/21 10:27 DC Piperacillin Sod/ Tazobactam Sod 2.25 gm/Sodium Chloride 50 ml @ 100 mls/hr Q6HRS 07/13/21 12:00 07/16/21 05:41 100 MLS/HR Prochlorperazine Edisylate (Compazine) 5 mg PACU PRN PRN 07/12/21 08:00 07/13/21 07:59 DC Propofol (Diprivan) 1,000 mg STK-MED ONCE 07/12/21 13:00 07/13/21 12:22 DC Ringer's Solution 1,000 ml @ 100 mls/hr Q10H 07/12/21 12:15 07/13/21 19:33 DC 07/13/21 10:39 100 MLS/HR Rocuronium [place] (Zemuron) 100 mg STK-MED ONCE 07/12/21 09:34 07/12/21 09:34 DC Sevoflurane (Ultane) 60 ml STK-MED ONCE 07/12/21 21:15 07/12/21 21:15 DC Sodium Bicarbonate 150 meq/Dextrose 1,150 ml @ 75 mls/hr [id number] 07/12/21 14:30 07/13/21 19:34 DC 07/13/21 05:37 75 MLS/HR Sodium Bicarbonate (Sodium Bicarb Adult 8.4% Syr) 50 meq STK-MED ONCE 07/12/21 21:15 07/12/21 21:15 DC Sodium Chloride (Normal Saline Flush) 3 ml QSHIFT PRN 07/12/21 12:15 Sodium Chloride 70 meq/Potassium Chloride 50 meq/ Potassium Phosphate 20 mmol/ Magnesium Sulfate 10 meq/ Multivitamins 10 ml/Zinc/Copper/ Manganese/ Selenium 1 ml/ Total Parenteral Nutrition/Amino Acids/Dextrose/ Fat Emulsion Intravenous 1,512 ml @ 63 mls/hr TPN CONT 07/16/21 22:00 07/17/21 21:59 Sodium Chloride 90 meq/Potassium Chloride 50 meq/ Potassium Phosphate 13.6 mmol/Magnesium Sulfate 10 meq/ Multivitamins 10 ml/Zinc/Copper/ Manganese/ Selenium 1 ml/ Total Parenteral Nutrition/Amino Acids/Dextrose/ Fat Emulsion Intravenous 1,512 ml @ 63 mls/hr TPN CONT 07/15/21 22:00 07/16/21 21:59 07/15/21 22:05 63 MLS/HR Succinylcholine Chloride (Anectine) 200 mg STK-MED ONCE 07/12/21 07:44 07/12/21 07:44 DC Lab Laboratory Tests Test 07/16/21 00:13 07/16/21 05:15 07/16/21 08:00 Glucose (Fingerstick) 130 mg/dL (70-99) White Blood Count 12.7 x10^3/uL (4.0-11.0) Red Blood Count 4.10 x10^6/uL (4.30-5.70) Hemoglobin 12.2 g/dL (13.0-17.5) Hematocrit 34.9 % (39.0-53.0) Mean Corpuscular Volume 85 fL (79-100) Mean Corpuscular Hemoglobin 30 pg (25-35) Mean Corpuscular Hemoglobin Concent 35 g/dL (31-37) Red Cell Distribution Width 14.9 % (11.5-14.5) Platelet Count 241 x10^3/uL (140-400) Sodium Level 141 mmol/L (136-145) Potassium Level 3.5 mmol/L (3.5-5.1) Chloride Level 109 mmol/L (98-107) Carbon Dioxide Level 21 mmol/L (21-32) Anion Gap 11 (6-14) Blood Urea Nitrogen 39 mg/dL (8-26) Creatinine 1.6 mg/dL (0.7-1.3) Estimated GFR (Cockcroft-Gault) 41.3 BUN/Creatinine Ratio 24 (6-20) Glucose Level 158 mg/dL (70-99) Calcium Level 7.1 mg/dL (8.5-10.1) Phosphorus Level 2.8 mg/dL (2.6-4.7) Magnesium Level 2.2 mg/dL (1.8-2.4) Total Bilirubin 2.2 mg/dL (0.2-1.0) Aspartate Amino Transf (AST/SGOT) 61 U/L (15-37) Alanine Aminotransferase (ALT/SGPT) 31 U/L (16-63) Alkaline Phosphatase 75 U/L (46-116) Total Protein 3.8 g/dL (6.4-8.2) Albumin 1.2 g/dL (3.4-5.0) Albumin/Globulin Ratio 0.5 (1.0-1.7) Triglycerides Level 125 mg/dL (0-150) O2 Saturation 97 % (92-99) Arterial Blood pH 7.41 (7.35-7.45) Arterial Blood pCO2 at Patient Temp 33 mmHg (35-46) Arterial Blood pO2 at Patient Temp 87 mmHg (65-108) Arterial Blood HCO3 20 mmol/L (21-28) Arterial Blood Base Excess -4 mmol/L (-3-3) FiO2 40% vent Results All relevant outside records, renal labs, imaging studies, telemetry/EKG's were reviewed. Justicifation of Admission Dx: Justifications for Admission: Justification of Admission Dx: Yes Sepsis: Hemodynamic Instability JENNIE MOODY MD Jul 16, 2021 09:43
--- NOTE | 2021-07-16 10:40 | PDOC ---
PULMONARY PROGRESS NOTES DATE: 07/16/21 TIME: 10:37 Subjective Patient is off Versed since last evening. Not fully awake. Still on fentanyl low-dose drip Remains on assist control mode, 40% FiO2 Vitals Vital Signs Date Time Temp Pulse Resp B/P (MAP) Pulse Ox O2 Delivery O2 Flow Rate FiO2 07/16/21 09:46 100 Ventilator 07/16/21 06:00 80 20 130/50 07/16/21 04:00 98.5 98.5 Lungs: Clear Cardiovascular: S1, S2 Abdomen: Soft, Other (Distended) Extremities: Other Skin: Warm Labs Laboratory Tests Test 07/15/21 05:45 07/15/21 05:49 07/15/21 08:40 07/16/21 00:13 White Blood Count 16.0 x10^3/uL (4.0-11.0) Red Blood Count 4.37 x10^6/uL (4.30-5.70) Hemoglobin 12.6 g/dL (13.0-17.5) Hematocrit 37.7 % (39.0-53.0) Mean Corpuscular Volume 86 fL (79-100) Mean Corpuscular Hemoglobin 29 pg (25-35) Mean Corpuscular Hemoglobin Concent 33 g/dL (31-37) Red Cell Distribution Width 15.0 % (11.5-14.5) Platelet Count 268 x10^3/uL (140-400) Neutrophils (%) (Auto) 91 % (31-73) Lymphocytes (%) (Auto) 4 % (24-48) Monocytes (%) (Auto) 5 % (0-9) Eosinophils (%) (Auto) 0 % (0-3) Basophils (%) (Auto) 0 % (0-3) Neutrophils # (Auto) 14.5 x10^3/uL (1.8-7.7) Lymphocytes # (Auto) 0.6 x10^3/uL (1.0-4.8) Monocytes # (Auto) 0.8 x10^3/uL (0.0-1.1) Eosinophils # (Auto) 0.0 x10^3/uL (0.0-0.7) Basophils # (Auto) 0.0 x10^3/uL (0.0-0.2) Sodium Level 139 mmol/L (136-145) Potassium Level 3.5 mmol/L (3.5-5.1) Chloride Level 106 mmol/L (98-107) Carbon Dioxide Level 23 mmol/L (21-32) Anion Gap 10 (6-14) Blood Urea Nitrogen 40 mg/dL (8-26) Creatinine 1.9 mg/dL (0.7-1.3) Estimated GFR (Cockcroft-Gault) 33.9 BUN/Creatinine Ratio 21 (6-20) Glucose Level 107 mg/dL (70-99) Calcium Level 7.6 mg/dL (8.5-10.1) Phosphorus Level 4.0 mg/dL (2.6-4.7) Magnesium Level 2.2 mg/dL (1.8-2.4) Total Bilirubin 1.5 mg/dL (0.2-1.0) Aspartate Amino Transf (AST/SGOT) 76 U/L (15-37) Alanine Aminotransferase (ALT/SGPT) 32 U/L (16-63) Alkaline Phosphatase 83 U/L (46-116) Total Protein 4.8 g/dL (6.4-8.2) Albumin 1.3 g/dL (3.4-5.0) Albumin/Globulin Ratio 0.4 (1.0-1.7) Glucose (Fingerstick) 124 mg/dL (70-99) 130 mg/dL (70-99) O2 Saturation 97 % (92-99) Arterial Blood pH 7.37 (7.35-7.45) Arterial Blood pCO2 at Patient Temp 36 mmHg (35-46) Arterial Blood pO2 at Patient Temp 86 mmHg (65-108) Arterial Blood HCO3 20 mmol/L (21-28) Arterial Blood Base Excess -4 mmol/L (-3-3) FiO2 40% ac16 400 +5 Test 07/16/21 05:15 07/16/21 08:00 White Blood Count 12.7 x10^3/uL (4.0-11.0) Red Blood Count 4.10 x10^6/uL (4.30-5.70) Hemoglobin 12.2 g/dL (13.0-17.5) Hematocrit 34.9 % (39.0-53.0) Mean Corpuscular Volume 85 fL (79-100) Mean Corpuscular Hemoglobin 30 pg (25-35) Mean Corpuscular Hemoglobin Concent 35 g/dL (31-37) Red Cell Distribution Width 14.9 % (11.5-14.5) Platelet Count 241 x10^3/uL (140-400) Sodium Level 141 mmol/L (136-145) Potassium Level 3.5 mmol/L (3.5-5.1) Chloride Level 109 mmol/L (98-107) Carbon Dioxide Level 21 mmol/L (21-32) Anion Gap 11 (6-14) Blood Urea Nitrogen 39 mg/dL (8-26) Creatinine 1.6 mg/dL (0.7-1.3) Estimated GFR (Cockcroft-Gault) 41.3 BUN/Creatinine Ratio 24 (6-20) Glucose Level 158 mg/dL (70-99) Calcium Level 7.1 mg/dL (8.5-10.1) Phosphorus Level 2.8 mg/dL (2.6-4.7) Magnesium Level 2.2 mg/dL (1.8-2.4) Total Bilirubin 2.2 mg/dL (0.2-1.0) Aspartate Amino Transf (AST/SGOT) 61 U/L (15-37) Alanine Aminotransferase (ALT/SGPT) 31 U/L (16-63) Alkaline Phosphatase 75 U/L (46-116) Total Protein 3.8 g/dL (6.4-8.2) Albumin 1.2 g/dL (3.4-5.0) Albumin/Globulin Ratio 0.5 (1.0-1.7) Triglycerides Level 125 mg/dL (0-150) O2 Saturation 97 % (92-99) Arterial Blood pH 7.41 (7.35-7.45) Arterial Blood pCO2 at Patient Temp 33 mmHg (35-46) Arterial Blood pO2 at Patient Temp 87 mmHg (65-108) Arterial Blood HCO3 20 mmol/L (21-28) Arterial Blood Base Excess -4 mmol/L (-3-3) FiO2 40% vent Laboratory Tests Test 07/16/21 00:13 07/16/21 05:15 07/16/21 08:00 Glucose (Fingerstick) 130 mg/dL (70-99) White Blood Count 12.7 x10^3/uL (4.0-11.0) Red Blood Count 4.10 x10^6/uL (4.30-5.70) Hemoglobin 12.2 g/dL (13.0-17.5) Hematocrit 34.9 % (39.0-53.0) Mean Corpuscular Volume 85 fL (79-100) Mean Corpuscular Hemoglobin 30 pg (25-35) Mean Corpuscular Hemoglobin Concent 35 g/dL (31-37) Red Cell Distribution Width 14.9 % (11.5-14.5) Platelet Count 241 x10^3/uL (140-400) Sodium Level 141 mmol/L (136-145) Potassium Level 3.5 mmol/L (3.5-5.1) Chloride Level 109 mmol/L (98-107) Carbon Dioxide Level 21 mmol/L (21-32) Anion Gap 11 (6-14) Blood Urea Nitrogen 39 mg/dL (8-26) Creatinine 1.6 mg/dL (0.7-1.3) Estimated GFR (Cockcroft-Gault) 41.3 BUN/Creatinine Ratio 24 (6-20) Glucose Level 158 mg/dL (70-99) Calcium Level 7.1 mg/dL (8.5-10.1) Phosphorus Level 2.8 mg/dL (2.6-4.7) Magnesium Level 2.2 mg/dL (1.8-2.4) Total Bilirubin 2.2 mg/dL (0.2-1.0) Aspartate Amino Transf (AST/SGOT) 61 U/L (15-37) Alanine Aminotransferase (ALT/SGPT) 31 U/L (16-63) Alkaline Phosphatase 75 U/L (46-116) Total Protein 3.8 g/dL (6.4-8.2) Albumin 1.2 g/dL (3.4-5.0) Albumin/Globulin Ratio 0.5 (1.0-1.7) Triglycerides Level 125 mg/dL (0-150) O2 Saturation 97 % (92-99) Arterial Blood pH 7.41 (7.35-7.45) Arterial Blood pCO2 at Patient Temp 33 mmHg (35-46) Arterial Blood pO2 at Patient Temp 87 mmHg (65-108) Arterial Blood HCO3 20 mmol/L (21-28) Arterial Blood Base Excess -4 mmol/L (-3-3) FiO2 40% vent Medications Active Scripts Medications Dose Route/Sig Max Daily Dose Days Date Category [Pantoprazole] 40 MG Tablet.dr 40 Mg PO BIDBFRMEAL 06/22/17 Rx Carafate (Sucralfate) 1 Gm/10 Ml Oral.susp 1 Gm PO TIDBFRMEAL 06/22/17 Rx Avalide 150-12.5 Mg Tablet (Irbesartan/Hydrochlorothiazide) 1 Each Tablet 1 Each PO DAILY 06/19/17 Reported Comments Chest x-ray reviewed dated 07/15/2021. Increasing bilateral infiltrates and small effusions Impression . Acute respiratory failure multifactorial status post exploratory laparotomy for perforated viscus Septic shock. Patient is pressor dependent. Currently on a low-dose Levophed. Lactic acidosis. Resolved Acute renal failure. Stable History of prostate cancer Severe protein malnutrition present upon admission Abnormal chest x-ray consistent with increasing CHF. Received Lasix yesterday. 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 \ Plan . Continue present assist-control mode. Oxygen requirement is stable. We will discontinue fentanyl and use as needed. Patient still not awake for a w eaning trial. Will avoid further volume. Chest x-ray is slightly worse. Will try mild diuresis. Wean off Levophed. Keep mean arterial pressure above 60. Empiric antibiotics Follow-up on cultures Final pathology from the bowel surgery consistent with metastatic melanoma. Oncology consulted. We will start weaning sedation and assess mental status improves Discussed with son in detail at the bedside. Advance directives discussed as well. Patient's son wants to continue with aggressive care. Total cumulative critical care time was 30 minutes, discussed with RN and RT. YASMIN WEAVER MD Jul 16, 2021 10:40
--- NOTE | 2021-07-16 10:42 | PN ---
DATE: 07/16/2021 SUBJECTIVE: The patient continued to be intubated and mechanically ventilated. He is on a small dose of Levophed and fentanyl. He is off Versed. He does bite the mouth swabs, but does not open his eyes. His blood pressure is well controlled and he does not need Levophed anymore. PHYSICAL EXAMINATION: GENERAL: When I examined him, he was pale, somewhat cachectic, but not jaundiced or cyanosed, no lymphadenopathy, no thyromegaly, no jugular venous distention. No limb edema. VITAL SIGNS: His heart rate was 80, blood pressure was 130/50, temperature was 98.5, respiratory rate was 18 and oxygen saturation was 100% on FiO2 of 40%. HEAD, EYES, EARS, NOSE AND THROAT: Normocephalic, atraumatic. NECK: Supple. HEART: Showed normal first and second heart sounds. No gallop, rub or murmur. CHEST: Clear to auscultation, no crepitation or rhonchi. ABDOMEN: Scaphoid, soft, nontender. NEUROLOGIC: He continued to be sedated, intubated and mechanically ventilated. His intake was 7600, output was 530. LABORATORY DATA: As of this morning showed a white cell count 12.7, hemoglobin 12, hematocrit 34, MCV 85 and platelet count 241,000. His chemistry showed a serum sodium 141, potassium 3.5, chloride 109, bicarbonate 21, anion gap 11, BUN 39, creatinine 1.6, estimated GFR was 41 mL per minute. His glucose 158, calcium was 7.1, phosphorus 2.8, magnesium was 2.2. Total bilirubin 2.2. AST, ALT, alkaline phosphatase are normal. Total protein 3.8, albumin was 1.2. His chest x-ray showed the patient's endotracheal tube at 6 cm above the ti, left-sided PICC line with the tip in the superior vena cava, improved aeration of the lower lungs, similar pleural effusion, no pneumothorax, unchanged cardiomediastinal silhouette. ASSESSMENT: 1. Perforated viscus, status post exploratory laparotomy, reduction of gastric volvulus, hiatal hernia repair, gastrostomy tube placement as well as jejunostomy tube placement. 2. Acute hypoxic respiratory failure, for which he was intubated and mechanically ventilated, continues to be mildly sedated. He is maintaining his oxygen saturation 100% on FiO2 of 45%. 3. Hypotension, likely sepsis, for which he is on Levophed that is tapered down. 4. Acute kidney injury, improving. His creatinine came down from 2.2-1.6. 5. Other medical problems include: A. Hypertension. The patient is currently hypotensive. B. Hiatal hernia, status post reduction. C. Gastroesophageal reflux disease. D. Gastric ulcer. E. Chronic constipation. PLAN: Continue to taper the sedation and Levophed. Continue with IV antibiotic. We did start him on TPN. FELECIA DR: Marta TID: [id number]
--- NOTE | 2021-07-16 11:57 | PDOC ---
Infectious Disease Note Subjective Subjective Pt is intubated on vent ROS ROS no n/v/d/ Vital Sign Vital Signs Vital Signs Date Time Temp Pulse Resp B/P (MAP) Pulse Ox O2 Delivery O2 Flow Rate FiO2 07/16/21 11:14 100 Ventilator 07/16/21 06:00 80 20 130/50 07/16/21 04:00 98.5 98.5 Physical Exam PHYSICAL EXAM GENERAL: Sedated, orally intubated gentleman, not in distress. VITAL SIGNS: stable HEENT: Both pupils are round and reacting. No conjunctival lesion. No lesion in the mouth. Mouth cannot be visualized much as orally intubated. NECK: Supple, no JVP, no lymphadenopathy. LUNGS: Clear. Decreased breath sounds. HEART: S1, S2 regular. No gallop or murmur. ABDOMEN: Multiple tubes in the post-surgical dressing not opened. EXTREMITIES: No edema, cyanosis. SKIN: Unremarkable. NEUROLOGIC: The patient is not able to medical services coordinator since sedated and intubated. Labs Lab Laboratory Tests Test 07/16/21 00:13 07/16/21 05:15 07/16/21 08:00 Glucose (Fingerstick) 130 mg/dL (70-99) White Blood Count 12.7 x10^3/uL (4.0-11.0) Red Blood Count 4.10 x10^6/uL (4.30-5.70) Hemoglobin 12.2 g/dL (13.0-17.5) Hematocrit 34.9 % (39.0-53.0) Mean Corpuscular Volume 85 fL (79-100) Mean Corpuscular Hemoglobin 30 pg (25-35) Mean Corpuscular Hemoglobin Concent 35 g/dL (31-37) Red Cell Distribution Width 14.9 % (11.5-14.5) Platelet Count 241 x10^3/uL (140-400) Sodium Level 141 mmol/L (136-145) Potassium Level 3.5 mmol/L (3.5-5.1) Chloride Level 109 mmol/L (98-107) Carbon Dioxide Level 21 mmol/L (21-32) Anion Gap 11 (6-14) Blood Urea Nitrogen 39 mg/dL (8-26) Creatinine 1.6 mg/dL (0.7-1.3) Estimated GFR (Cockcroft-Gault) 41.3 BUN/Creatinine Ratio 24 (6-20) Glucose Level 158 mg/dL (70-99) Calcium Level 7.1 mg/dL (8.5-10.1) Phosphorus Level 2.8 mg/dL (2.6-4.7) Magnesium Level 2.2 mg/dL (1.8-2.4) Total Bilirubin 2.2 mg/dL (0.2-1.0) Aspartate Amino Transf (AST/SGOT) 61 U/L (15-37) Alanine Aminotransferase (ALT/SGPT) 31 U/L (16-63) Alkaline Phosphatase 75 U/L (46-116) Total Protein 3.8 g/dL (6.4-8.2) Albumin 1.2 g/dL (3.4-5.0) Albumin/Globulin Ratio 0.5 (1.0-1.7) Triglycerides Level 125 mg/dL (0-150) O2 Saturation 97 % (92-99) Arterial Blood pH 7.41 (7.35-7.45) Arterial Blood pCO2 at Patient Temp 33 mmHg (35-46) Arterial Blood pO2 at Patient Temp 87 mmHg (65-108) Arterial Blood HCO3 20 mmol/L (21-28) Arterial Blood Base Excess -4 mmol/L (-3-3) FiO2 40% vent Objective Assessment IMPRESSION: 1. Perforated viscus, status post exploratory laparotomy, reduction of gastric volvulus, hiatal hernia repair, gastrostomy tube placement and duodenoscopy with tube placement done. 2. Hypotension, requiring vasopressor support. 3. Respiratory failure, requiring ventilatory support. 4. Renal failure. 5. History of prostate cancer. Plan Plan of Care path + with melanoma cont antibiotics cont supportive care consider palliative care NYLA MOSS MD Jul 16, 2021 11:57
--- NOTE | 2021-07-16 13:00 | PDOC ---
SURGICAL PROGRESS NOTE DATE: 07/16/21 TIME: 12:58 Subjective Pt intubated and sedated, seems stable on current support Vital Signs Vital Signs Date Time Temp Pulse Resp B/P (MAP) Pulse Ox O2 Delivery O2 Flow Rate FiO2 07/16/21 12:00 99 07/16/21 12:00 Mechanical Ventilator 07/16/21 11:14 100 07/16/21 06:00 20 07/16/21 04:00 98.5 98.5 I&O Intake and Output 07/16/21 07:00 Intake Total 2062.58 ml Output Total 2065 ml Balance -2.42 ml Intake Oral 0 ml IV Total 2062.58 ml Output Urine Total 2065 ml PATIENT HAS A PEDRO: Yes (accurate i and os) General: No acute distress Abdomen: Soft, No tenderness, Other (G-tube in place, d -tube) Labs Laboratory Tests Test 07/15/21 05:45 07/15/21 05:49 07/15/21 08:40 07/16/21 00:13 White Blood Count 16.0 x10^3/uL (4.0-11.0) Red Blood Count 4.37 x10^6/uL (4.30-5.70) Hemoglobin 12.6 g/dL (13.0-17.5) Hematocrit 37.7 % (39.0-53.0) Mean Corpuscular Volume 86 fL (79-100) Mean Corpuscular Hemoglobin 29 pg (25-35) Mean Corpuscular Hemoglobin Concent 33 g/dL (31-37) Red Cell Distribution Width 15.0 % (11.5-14.5) Platelet Count 268 x10^3/uL (140-400) Neutrophils (%) (Auto) 91 % (31-73) Lymphocytes (%) (Auto) 4 % (24-48) Monocytes (%) (Auto) 5 % (0-9) Eosinophils (%) (Auto) 0 % (0-3) Basophils (%) (Auto) 0 % (0-3) Neutrophils # (Auto) 14.5 x10^3/uL (1.8-7.7) Lymphocytes # (Auto) 0.6 x10^3/uL (1.0-4.8) Monocytes # (Auto) 0.8 x10^3/uL (0.0-1.1) Eosinophils # (Auto) 0.0 x10^3/uL (0.0-0.7) Basophils # (Auto) 0.0 x10^3/uL (0.0-0.2) Sodium Level 139 mmol/L (136-145) Potassium Level 3.5 mmol/L (3.5-5.1) Chloride Level 106 mmol/L (98-107) Carbon Dioxide Level 23 mmol/L (21-32) Anion Gap 10 (6-14) Blood Urea Nitrogen 40 mg/dL (8-26) Creatinine 1.9 mg/dL (0.7-1.3) Estimated GFR (Cockcroft-Gault) 33.9 BUN/Creatinine Ratio 21 (6-20) Glucose Level 107 mg/dL (70-99) Calcium Level 7.6 mg/dL (8.5-10.1) Phosphorus Level 4.0 mg/dL (2.6-4.7) Magnesium Level 2.2 mg/dL (1.8-2.4) Total Bilirubin 1.5 mg/dL (0.2-1.0) Aspartate Amino Transf (AST/SGOT) 76 U/L (15-37) Alanine Aminotransferase (ALT/SGPT) 32 U/L (16-63) Alkaline Phosphatase 83 U/L (46-116) Total Protein 4.8 g/dL (6.4-8.2) Albumin 1.3 g/dL (3.4-5.0) Albumin/Globulin Ratio 0.4 (1.0-1.7) Glucose (Fingerstick) 124 mg/dL (70-99) 130 mg/dL (70-99) O2 Saturation 97 % (92-99) Arterial Blood pH 7.37 (7.35-7.45) Arterial Blood pCO2 at Patient Temp 36 mmHg (35-46) Arterial Blood pO2 at Patient Temp 86 mmHg (65-108) Arterial Blood HCO3 20 mmol/L (21-28) Arterial Blood Base Excess -4 mmol/L (-3-3) FiO2 40% ac16 400 +5 Test 07/16/21 05:15 07/16/21 08:00 White Blood Count 12.7 x10^3/uL (4.0-11.0) Red Blood Count 4.10 x10^6/uL (4.30-5.70) Hemoglobin 12.2 g/dL (13.0-17.5) Hematocrit 34.9 % (39.0-53.0) Mean Corpuscular Volume 85 fL (79-100) Mean Corpuscular Hemoglobin 30 pg (25-35) Mean Corpuscular Hemoglobin Concent 35 g/dL (31-37) Red Cell Distribution Width 14.9 % (11.5-14.5) Platelet Count 241 x10^3/uL (140-400) Sodium Level 141 mmol/L (136-145) Potassium Level 3.5 mmol/L (3.5-5.1) Chloride Level 109 mmol/L (98-107) Carbon Dioxide Level 21 mmol/L (21-32) Anion Gap 11 (6-14) Blood Urea Nitrogen 39 mg/dL (8-26) Creatinine 1.6 mg/dL (0.7-1.3) Estimated GFR (Cockcroft-Gault) 41.3 BUN/Creatinine Ratio 24 (6-20) Glucose Level 158 mg/dL (70-99) Calcium Level 7.1 mg/dL (8.5-10.1) Phosphorus Level 2.8 mg/dL (2.6-4.7) Magnesium Level 2.2 mg/dL (1.8-2.4) Total Bilirubin 2.2 mg/dL (0.2-1.0) Aspartate Amino Transf (AST/SGOT) 61 U/L (15-37) Alanine Aminotransferase (ALT/SGPT) 31 U/L (16-63) Alkaline Phosphatase 75 U/L (46-116) Total Protein 3.8 g/dL (6.4-8.2) Albumin 1.2 g/dL (3.4-5.0) Albumin/Globulin Ratio 0.5 (1.0-1.7) Triglycerides Level 125 mg/dL (0-150) O2 Saturation 97 % (92-99) Arterial Blood pH 7.41 (7.35-7.45) Arterial Blood pCO2 at Patient Temp 33 mmHg (35-46) Arterial Blood pO2 at Patient Temp 87 mmHg (65-108) Arterial Blood HCO3 20 mmol/L (21-28) Arterial Blood Base Excess -4 mmol/L (-3-3) FiO2 40% vent Laboratory Tests Test 07/16/21 00:13 07/16/21 05:15 07/16/21 08:00 Glucose (Fingerstick) 130 mg/dL (70-99) White Blood Count 12.7 x10^3/uL (4.0-11.0) Red Blood Count 4.10 x10^6/uL (4.30-5.70) Hemoglobin 12.2 g/dL (13.0-17.5) Hematocrit 34.9 % (39.0-53.0) Mean Corpuscular Volume 85 fL (79-100) Mean Corpuscular Hemoglobin 30 pg (25-35) Mean Corpuscular Hemoglobin Concent 35 g/dL (31-37) Red Cell Distribution Width 14.9 % (11.5-14.5) Platelet Count 241 x10^3/uL (140-400) Sodium Level 141 mmol/L (136-145) Potassium Level 3.5 mmol/L (3.5-5.1) Chloride Level 109 mmol/L (98-107) Carbon Dioxide Level 21 mmol/L (21-32) Anion Gap 11 (6-14) Blood Urea Nitrogen 39 mg/dL (8-26) Creatinine 1.6 mg/dL (0.7-1.3) Estimated GFR (Cockcroft-Gault) 41.3 BUN/Creatinine Ratio 24 (6-20) Glucose Level 158 mg/dL (70-99) Calcium Level 7.1 mg/dL (8.5-10.1) Phosphorus Level 2.8 mg/dL (2.6-4.7) Magnesium Level 2.2 mg/dL (1.8-2.4) Total Bilirubin 2.2 mg/dL (0.2-1.0) Aspartate Amino Transf (AST/SGOT) 61 U/L (15-37) Alanine Aminotransferase (ALT/SGPT) 31 U/L (16-63) Alkaline Phosphatase 75 U/L (46-116) Total Protein 3.8 g/dL (6.4-8.2) Albumin 1.2 g/dL (3.4-5.0) Albumin/Globulin Ratio 0.5 (1.0-1.7) Triglycerides Level 125 mg/dL (0-150) O2 Saturation 97 % (92-99) Arterial Blood pH 7.41 (7.35-7.45) Arterial Blood pCO2 at Patient Temp 33 mmHg (35-46) Arterial Blood pO2 at Patient Temp 87 mmHg (65-108) Arterial Blood HCO3 20 mmol/L (21-28) Arterial Blood Base Excess -4 mmol/L (-3-3) FiO2 40% vent Assessment/Plan s/p xlap cont supportive care cont tubes pt with metastatic melanoma, did not appear to be related to current pathology. Justicifation of Admission Dx: Justifications for Admission: Justification of Admission Dx: Yes Sepsis: Hemodynamic Instability STEVEN ZENDEJAS MD Jul 16, 2021 13:00
[2021-07-16] MEDS: ENOXAPARIN 40 MG/0.4 ML SYRINGE. SQ SCH (20:35)
[2021-07-16] MEDS: FAMOTIDINE 20 MG/2 ML VIAL IVP SCH (20:35)
[2021-07-16] MEDS ORDERED: TOTAL PARENTERAL NUTRITION IV SCH ×3 (22:00)
[2021-07-16] MEDS ORDERED: [UNRECOGNIZED DRUG - OTHER] IV SCH (22:00)
[2021-07-16] MEDS ORDERED: [UNRECOGNIZED DRUG - OTHER] IV SCH (22:00)
[2021-07-16] MEDS ORDERED: DEXTROSE 70% IV SCH ×3 (22:00)
[2021-07-16] MEDS ORDERED: [UNRECOGNIZED DRUG - OTHER] IV SCH (22:00)
[2021-07-16] MEDS ORDERED: AMINO ACID IV SCH ×3 (22:00)
[2021-07-16] MEDS: fentaNYL PF VIAL 100 MCG/2 ML VIAL IVP PRN (22:11)
[2021-07-17] VITALS (25 sets, daily range): BP systolic 101–198; BP diastolic 45–96
[2021-07-17] MEDS: fentaNYL PF VIAL 100 MCG/2 ML VIAL IVP PRN ×3 (04:30→20:21)
[2021-07-17] MEDS: PIPERACILLIN/TAZOBACTAM 2.25 GM in IV NORMAL SALINE 50ML 50 ML IV SCH ×4 (06:04→23:41)
--- NOTE | 2021-07-17 06:36 | RAD ---
Study: XR CHEST 1V Indication: Respiratory failure. Comparison: 07/16/2021 Findings: Endotracheal tube tip projects 5 cm above the ti. Left subclavian central venous catheter termina olu within the SVC. More confluent airspace opacities at both lung bases. No newly seen airspace abnormality at the upper lung zones. Redemonstration of bilateral pleural effusions. No pneumothorax. Unchanged cardiomediast inal silhouette and wilian. Impression: 1. Appropriate support device positioning. 2. More confluent airspace opacities at both lung bases and persistence of bilateral pleural effusion s. Electronically signed by: MARLEEN MANDEL MD (07/17/2021 6:34 AM) [facility]
[2021-07-17 06:57] LABS: CALCIUM 7.5 mg/dL (8.5-10.1); CREATININE 1.4 mg/dL (0.7-1.3); GFR 48.2; MAGNESIUM 2.2 mg/dL (1.8-2.4); PHOSPHORUS 1.9 mg/dL (2.6-4.7); POTASSIUM 3.5 mmol/L (3.5-5.1)
--- NOTE | 2021-07-17 09:02 | PDOC ---
DATE OF SERVICE DATE: 07/17/21 TIME: 08:59 SUBJECTIVE ROS Intubated, on vent. Stable OBJECTIVE Vital Signs Vital Signs Date Time Temp Pulse Resp B/P (MAP) Pulse Ox O2 Delivery O2 Flow Rate FiO2 07/17/21 08:00 98.0 112 31 158/66 97 Ventilator 98.0 I & 0 Intake and Output 07/17/21 06:59 Intake Total 2051 ml Output Total 1250 ml Balance 801 ml Intake Oral 0 ml IV Total 2051 ml Output Urine Total 1150 ml Drainage Total 100 ml PHYSICAL EXAM Physical Exam GENERAL: Sedated, orally intubated HEENT: Both pupils are round and reacting. orally intubated. NECK: Supple, no JVP, LUNGS: Clear. Decreased breath sounds. HEART: S1, S2 regular. No gallop or murmur. ABDOMEN: Multiple tubes in the post-surgical dressing EXTREMITIES: No edema, cyanosis. SKIN: Unremarkable. NEUROLOGIC: sedated and intubated. Carreno + DIAGNOSIS/ASSESSMENT Assessment & Plan SHELDON-- ATN/ Hypotensive/Bowel perf . UA unremarkable , CT scan No e/o BALLARD/Hydronephrosis , Creat trending down E-Lytes stable . Supportive care ,maintain fluid balance, DC IVF as she is on TPN avoid Nephrotoxins SHELDON in 2018, resolved. No Interval labs available Renal Calculus 5 mm nonobstructing calculus is seen involving the lower pole of the right kidney. Perforated viscus, status post exploratory laparotomy, reduction of gastric volvulus, hiatal hernia repair, gastrostomy tube placement and duodenoscopy with tube placement done. Hypotension, requiring vasopressor support. Acute Respiratory failure, requiring ventilatory support. History of prostate cancer. HypoPhos- replace/ Adjust in TPN Nutrition- On TPN COMMENT/RELEVANT DATA Meds Current Medications Medications (Trade) Dose Ordered Sig/Armin Start Time Stop Time Status Last Admin Dose Admin Albumin Human 500 ml @ 125 mls/hr 1X ONCE 07/12/21 12:45 07/12/21 16:44 DC Cefoxitin Sodium (Mefoxin) 1 gm Q6H 07/12/21 14:00 07/13/21 02:01 DC 07/13/21 01:47 1 GM Ceftriaxone Sodium (Rocephin) 2 gm Q24H 07/12/21 07:00 07/13/21 09:46 DC 07/13/21 06:30 2 GM Dexamethasone Sodium Phosphate (Decadron) 4 mg STK-MED ONCE 07/12/21 07:43 07/12/21 07:44 DC Digoxin (Lanoxin) 500 mcg 1X ONCE 07/14/21 04:30 07/14/21 04:31 DC 07/14/21 04:40 500 MCG Enoxaparin Sodium (Lovenox 30mg Syringe) 30 mg Q24H 07/12/21 21:00 07/16/21 09:07 DC 07/15/21 21:04 30 MG Enoxaparin Sodium (Lovenox 40mg Syringe) 40 mg Q24H 07/16/21 21:00 07/16/21 20:35 40 MG Ephedrine Sulfate (ePHEDrine PF IN SALINE SYRINGE) 50 mg STK-MED ONCE 07/12/21 10:27 07/12/21 10:27 DC Etomidate (Amidate) 20 mg STK-MED ONCE 07/12/21 08:30 07/12/21 08:30 DC Famotidine (Pepcid Vial) 20 mg QHS 07/12/21 21:00 07/16/21 20:35 20 MG Fentanyl Citrate (Fentanyl 2ml Vial) 25 mcg PRN Q1HR PRN 07/16/21 19:30 07/17/21 04:30 25 MCG Furosemide (Lasix) 20 mg 1X ONCE 07/15/21 18:30 07/15/21 18:31 DC Glycerin/ Hypromellose/ Polyethylene (Artificial Tears) 1 drop PRN Q1HR PRN 07/12/21 12:45 Glycopyrrolate (Robinul) 1 mg STK-MED ONCE 07/12/21 07:45 07/12/21 07:45 DC Hydromorphone HCl (Dilaudid) 0.5 mg PRN Q10MIN PRN 07/12/21 08:00 07/13/21 07:59 DC Info (Tpn Per Pharmacy) 1 each PRN DAILY PRN 07/15/21 10:30 07/16/21 09:44 1 EACH Magnesium Sulfate 50 ml @ 25 mls/hr 1X ONCE 07/14/21 12:30 07/14/21 14:29 DC 07/14/21 15:22 25 MLS/HR Metronidazole 100 ml @ 100 mls/hr Q8HRS 07/12/21 14:00 07/13/21 09:46 DC 07/13/21 06:15 100 MLS/HR Midazolam HCl 100 ml @ 1 mls/hr CONT PRN 07/12/21 12:45 07/16/21 19:27 DC 07/12/21 16:55 1 MLS/HR Midazolam HCl (Versed) 2 mg STK-MED ONCE 07/12/21 07:44 07/12/21 07:44 DC Morphine Sulfate (Morphine Sulfate) 1 mg PRN Q1HR PRN 07/12/21 12:15 07/12/21 13:51 DC Naloxone HCl (Narcan) 0.4 mg PRN Q2MIN PRN 07/12/21 12:15 Neostigmine Lowell (Neostigmine Methylsulfate) 5 mg STK-MED ONCE 07/12/21 07:44 07/12/21 07:44 DC Norepinephrine Bitartrate 32 mg/ Dextrose 250 ml @ 3.192 mls/ hr CONT PRN 07/15/21 03:30 07/15/21 04:15 15.961 MLS/HR Norepinephrine Bitartrate 8 mg/ Dextrose 258 ml @ 11.204 mls/ hr CONT PRN 07/12/21 13:45 07/15/21 03:14 DC 07/14/21 23:22 56.018 MLS/HR Ondansetron HCl (Zofran) 4 mg PRN Q6HRS PRN 07/12/21 12:15 Phenylephrine HCl (Lionel-Synephrine Inj) 10 mg STK-MED ONCE 07/12/21 11:54 07/12/21 11:55 DC Phenylephrine HCl (PHENYLEPHRINE in 0.9% NACL PF) 1 mg STK-MED ONCE 07/12/21 10:27 07/12/21 10:27 DC Piperacillin Sod/ Tazobactam Sod 2.25 gm/Sodium Chloride 50 ml @ 100 mls/hr Q6HRS 07/13/21 12:00 07/17/21 06:04 100 MLS/HR Prochlorperazine Edisylate (Compazine) 5 mg PACU PRN PRN 07/12/21 08:00 07/13/21 07:59 DC Propofol (Diprivan) 1,000 mg STK-MED ONCE 07/12/21 13:00 07/13/21 12:22 DC Ringer's Solution 1,000 ml @ 100 mls/hr Q10H 07/12/21 12:15 07/13/21 19:33 DC 07/13/21 10:39 100 MLS/HR Rocuronium Lowell (Zemuron) 100 mg STK-MED ONCE 07/12/21 09:34 07/12/21 09:34 DC Sevoflurane (Ultane) 60 ml STK-MED ONCE 07/12/21 21:15 07/12/21 21:15 DC Sodium Bicarbonate 150 meq/Dextrose 1,150 ml @ 75 mls/hr [id number] 07/12/21 14:30 07/13/21 19:34 DC 07/13/21 05:37 75 MLS/HR Sodium Bicarbonate (Sodium Bicarb Adult 8.4% Syr) 50 meq STK-MED ONCE 07/12/21 21:15 07/12/21 21:15 DC Sodium Chloride (Normal Saline Flush) 3 ml QSHIFT PRN 07/12/21 12:15 Sodium Chloride 70 meq/Potassium Chloride 50 meq/ Potassium Phosphate 20 mmol/ Magnesium Sulfate 10 meq/ Multivitamins 10 ml/Zinc/Copper/ Manganese/ Selenium 1 ml/ Total Parenteral Nutrition/Amino Acids/Dextrose/ Fat Emulsion Intravenous 1,512 ml @ 63 mls/hr TPN CONT 07/16/21 22:00 07/17/21 21:59 07/16/21 21:38 63 MLS/HR Sodium Chloride 90 meq/Potassium Chloride 50 meq/ Potassium Phosphate 13.6 mmol/Magnesium Sulfate 10 meq/ Multivitamins 10 ml/Zinc/Copper/ Manganese/ Selenium 1 ml/ Total Parenteral Nutrition/Amino Acids/Dextrose/ Fat Emulsion Intravenous 1,512 ml @ 63 mls/hr TPN CONT 07/15/21 22:00 07/16/21 21:59 DC 07/15/21 22:05 63 MLS/HR Succinylcholine Chloride (Anectine) 200 mg STK-MED ONCE 07/12/21 07:44 07/12/21 07:44 DC Lab Laboratory Tests Test 07/16/21 23:25 07/17/21 06:30 Glucose (Fingerstick) 139 mg/dL (70-99) Sodium Level 141 mmol/L (136-145) Potassium Level 3.5 mmol/L (3.5-5.1) Chloride Level 111 mmol/L (98-107) Carbon Dioxide Level 20 mmol/L (21-32) Anion Gap 10 (6-14) Blood Urea Nitrogen 42 mg/dL (8-26) Creatinine 1.4 mg/dL (0.7-1.3) Estimated GFR (Cockcroft-Gault) 48.2 Glucose Level 168 mg/dL (70-99) Calcium Level 7.5 mg/dL (8.5-10.1) Phosphorus Level 1.9 mg/dL (2.6-4.7) Magnesium Level 2.2 mg/dL (1.8-2.4) Results All relevant outside records, renal labs, imaging studies, telemetry/EKG's were reviewed. Justicifation of Admission Dx: Justifications for Admission: Justification of Admission Dx: Yes Sepsis: Hemodynamic Instability JENNIE MOODY MD Jul 17, 2021 09:02
[2021-07-17] MEDS ORDERED: LABETALOL 20 MG/4 ML DISP.SYRIN. IVP PRN (09:15)
[2021-07-17 09:27] LABS: BASE EXCESS ABG -3 mmol/L (-3-3); HCO3 ABG 19 mmol/L (21-28); PCO2 ABG 26 mmHg (35-46); PO2 ABG 80 mmHg (65-108); SAT O2 ABG 97 % (92-99)
[2021-07-17 09:31] LABS: FIO2 ABG 40
--- NOTE | 2021-07-17 10:35 | PDOC ---
SURGICAL PROGRESS NOTE DATE: 07/17/21 TIME: 10:33 Subjective vent, does not open eyes on exam Vital Signs Vital Signs Date Time Temp Pulse Resp B/P (MAP) Pulse Ox O2 Delivery O2 Flow Rate FiO2 07/17/21 10:00 116 35 160/74 98 Ventilator 07/17/21 08:00 98.0 98.0 I&O Intake and Output 07/17/21 07:00 Intake Total 2051 ml Output Total 1290 ml Balance 761 ml Intake Oral 0 ml IV Total 2051 ml Output Urine Total 1190 ml Drainage Total 100 ml PATIENT HAS A PEDRO: Yes General: Other (no sedation) Abdomen: Soft, Other (tubes in place) Labs Laboratory Tests Test 07/16/21 00:13 07/16/21 05:15 07/16/21 08:00 07/16/21 23:25 Glucose (Fingerstick) 130 mg/dL (70-99) 139 mg/dL (70-99) White Blood Count 12.7 x10^3/uL (4.0-11.0) Red Blood Count 4.10 x10^6/uL (4.30-5.70) Hemoglobin 12.2 g/dL (13.0-17.5) Hematocrit 34.9 % (39.0-53.0) Mean Corpuscular Volume 85 fL (79-100) Mean Corpuscular Hemoglobin 30 pg (25-35) Mean Corpuscular Hemoglobin Concent 35 g/dL (31-37) Red Cell Distribution Width 14.9 % (11.5-14.5) Platelet Count 241 x10^3/uL (140-400) Sodium Level 141 mmol/L (136-145) Potassium Level 3.5 mmol/L (3.5-5.1) Chloride Level 109 mmol/L (98-107) Carbon Dioxide Level 21 mmol/L (21-32) Anion Gap 11 (6-14) Blood Urea Nitrogen 39 mg/dL (8-26) Creatinine 1.6 mg/dL (0.7-1.3) Estimated GFR (Cockcroft-Gault) 41.3 BUN/Creatinine Ratio 24 (6-20) Glucose Level 158 mg/dL (70-99) Calcium Level 7.1 mg/dL (8.5-10.1) Phosphorus Level 2.8 mg/dL (2.6-4.7) Magnesium Level 2.2 mg/dL (1.8-2.4) Total Bilirubin 2.2 mg/dL (0.2-1.0) Aspartate Amino Transf (AST/SGOT) 61 U/L (15-37) Alanine Aminotransferase (ALT/SGPT) 31 U/L (16-63) Alkaline Phosphatase 75 U/L (46-116) Total Protein 3.8 g/dL (6.4-8.2) Albumin 1.2 g/dL (3.4-5.0) Albumin/Globulin Ratio 0.5 (1.0-1.7) Triglycerides Level 125 mg/dL (0-150) O2 Saturation 97 % (92-99) Arterial Blood pH 7.41 (7.35-7.45) Arterial Blood pCO2 at Patient Temp 33 mmHg (35-46) Arterial Blood pO2 at Patient Temp 87 mmHg (65-108) Arterial Blood HCO3 20 mmol/L (21-28) Arterial Blood Base Excess -4 mmol/L (-3-3) FiO2 40% vent Test 07/17/21 06:30 07/17/21 09:15 Sodium Level 141 mmol/L (136-145) Potassium Level 3.5 mmol/L (3.5-5.1) Chloride Level 111 mmol/L (98-107) Carbon Dioxide Level 20 mmol/L (21-32) Anion Gap 10 (6-14) Blood Urea Nitrogen 42 mg/dL (8-26) Creatinine 1.4 mg/dL (0.7-1.3) Estimated GFR (Cockcroft-Gault) 48.2 Glucose Level 168 mg/dL (70-99) Calcium Level 7.5 mg/dL (8.5-10.1) Phosphorus Level 1.9 mg/dL (2.6-4.7) Magnesium Level 2.2 mg/dL (1.8-2.4) O2 Saturation 97 % (92-99) Arterial Blood pH 7.49 (7.35-7.45) Arterial Blood pCO2 at Patient Temp 26 mmHg (35-46) Arterial Blood pO2 at Patient Temp 80 mmHg (65-108) Arterial Blood HCO3 19 mmol/L (21-28) Arterial Blood Base Excess -3 mmol/L (-3-3) FiO2 40 Laboratory Tests Test 07/16/21 23:25 07/17/21 06:30 07/17/21 09:15 Glucose (Fingerstick) 139 mg/dL (70-99) Sodium Level 141 mmol/L (136-145) Potassium Level 3.5 mmol/L (3.5-5.1) Chloride Level 111 mmol/L (98-107) Carbon Dioxide Level 20 mmol/L (21-32) Anion Gap 10 (6-14) Blood Urea Nitrogen 42 mg/dL (8-26) Creatinine 1.4 mg/dL (0.7-1.3) Estimated GFR (Cockcroft-Gault) 48.2 Glucose Level 168 mg/dL (70-99) Calcium Level 7.5 mg/dL (8.5-10.1) Phosphorus Level 1.9 mg/dL (2.6-4.7) Magnesium Level 2.2 mg/dL (1.8-2.4) O2 Saturation 97 % (92-99) Arterial Blood pH 7.49 (7.35-7.45) Arterial Blood pCO2 at Patient Temp 26 mmHg (35-46) Arterial Blood pO2 at Patient Temp 80 mmHg (65-108) Arterial Blood HCO3 19 mmol/L (21-28) Arterial Blood Base Excess -3 mmol/L (-3-3) FiO2 40 Assessment/Plan ongoing measures Justicifation of Admission Dx: Justifications for Admission: Justification of Admission Dx: Yes Sepsis: Hemodynamic Instability KOURTNEY SNIDER GLASS TECHNOLOGIST Jul 17, 2021 10:35
[2021-07-17] MEDS: TPN PER PHARMACY MC PRN (11:14)
--- NOTE | 2021-07-17 11:20 | PDOC ---
PULMONARY PROGRESS NOTES DATE: 07/17/21 TIME: 11:14 Subjective Patient is off Versed , Not fully awake. Mildly tachypneic. On as needed fentanyl. Remains on assist control mode, 40% FiO2 Vitals Vital Signs Date Time Temp Pulse Resp B/P (MAP) Pulse Ox O2 Delivery O2 Flow Rate FiO2 07/17/21 10:00 116 35 160/74 98 Ventilator 07/17/21 08:00 98.0 98.0 Lungs: Clear Cardiovascular: S1, S2 Abdomen: Soft, Other (Distended) Extremities: Other Skin: Warm Labs Laboratory Tests Test 07/16/21 00:13 07/16/21 05:15 07/16/21 08:00 07/16/21 23:25 Glucose (Fingerstick) 130 mg/dL (70-99) 139 mg/dL (70-99) White Blood Count 12.7 x10^3/uL (4.0-11.0) Red Blood Count 4.10 x10^6/uL (4.30-5.70) Hemoglobin 12.2 g/dL (13.0-17.5) Hematocrit 34.9 % (39.0-53.0) Mean Corpuscular Volume 85 fL (79-100) Mean Corpuscular Hemoglobin 30 pg (25-35) Mean Corpuscular Hemoglobin Concent 35 g/dL (31-37) Red Cell Distribution Width 14.9 % (11.5-14.5) Platelet Count 241 x10^3/uL (140-400) Sodium Level 141 mmol/L (136-145) Potassium Level 3.5 mmol/L (3.5-5.1) Chloride Level 109 mmol/L (98-107) Carbon Dioxide Level 21 mmol/L (21-32) Anion Gap 11 (6-14) Blood Urea Nitrogen 39 mg/dL (8-26) Creatinine 1.6 mg/dL (0.7-1.3) Estimated GFR (Cockcroft-Gault) 41.3 BUN/Creatinine Ratio 24 (6-20) Glucose Level 158 mg/dL (70-99) Calcium Level 7.1 mg/dL (8.5-10.1) Phosphorus Level 2.8 mg/dL (2.6-4.7) Magnesium Level 2.2 mg/dL (1.8-2.4) Total Bilirubin 2.2 mg/dL (0.2-1.0) Aspartate Amino Transf (AST/SGOT) 61 U/L (15-37) Alanine Aminotransferase (ALT/SGPT) 31 U/L (16-63) Alkaline Phosphatase 75 U/L (46-116) Total Protein 3.8 g/dL (6.4-8.2) Albumin 1.2 g/dL (3.4-5.0) Albumin/Globulin Ratio 0.5 (1.0-1.7) Triglycerides Level 125 mg/dL (0-150) O2 Saturation 97 % (92-99) Arterial Blood pH 7.41 (7.35-7.45) Arterial Blood pCO2 at Patient Temp 33 mmHg (35-46) Arterial Blood pO2 at Patient Temp 87 mmHg (65-108) Arterial Blood HCO3 20 mmol/L (21-28) Arterial Blood Base Excess -4 mmol/L (-3-3) FiO2 40% vent Test 07/17/21 06:30 07/17/21 09:15 Sodium Level 141 mmol/L (136-145) Potassium Level 3.5 mmol/L (3.5-5.1) Chloride Level 111 mmol/L (98-107) Carbon Dioxide Level 20 mmol/L (21-32) Anion Gap 10 (6-14) Blood Urea Nitrogen 42 mg/dL (8-26) Creatinine 1.4 mg/dL (0.7-1.3) Estimated GFR (Cockcroft-Gault) 48.2 Glucose Level 168 mg/dL (70-99) Calcium Level 7.5 mg/dL (8.5-10.1) Phosphorus Level 1.9 mg/dL (2.6-4.7) Magnesium Level 2.2 mg/dL (1.8-2.4) O2 Saturation 97 % (92-99) Arterial Blood pH 7.49 (7.35-7.45) Arterial Blood pCO2 at Patient Temp 26 mmHg (35-46) Arterial Blood pO2 at Patient Temp 80 mmHg (65-108) Arterial Blood HCO3 19 mmol/L (21-28) Arterial Blood Base Excess -3 mmol/L (-3-3) FiO2 40 Laboratory Tests Test 07/16/21 23:25 07/17/21 06:30 07/17/21 09:15 Glucose (Fingerstick) 139 mg/dL (70-99) Sodium Level 141 mmol/L (136-145) Potassium Level 3.5 mmol/L (3.5-5.1) Chloride Level 111 mmol/L (98-107) Carbon Dioxide Level 20 mmol/L (21-32) Anion Gap 10 (6-14) Blood Urea Nitrogen 42 mg/dL (8-26) Creatinine 1.4 mg/dL (0.7-1.3) Estimated GFR (Cockcroft-Gault) 48.2 Glucose Level 168 mg/dL (70-99) Calcium Level 7.5 mg/dL (8.5-10.1) Phosphorus Level 1.9 mg/dL (2.6-4.7) Magnesium Level 2.2 mg/dL (1.8-2.4) O2 Saturation 97 % (92-99) Arterial Blood pH 7.49 (7.35-7.45) Arterial Blood pCO2 at Patient Temp 26 mmHg (35-46) Arterial Blood pO2 at Patient Temp 80 mmHg (65-108) Arterial Blood HCO3 19 mmol/L (21-28) Arterial Blood Base Excess -3 mmol/L (-3-3) FiO2 40 Medications Active Scripts Medications Dose Route/Sig Max Daily Dose Days Date Category [Pantoprazole] 40 MG Tablet.dr 40 Mg PO BIDBFRMEAL 06/22/17 Rx Carafate (Sucralfate) 1 Gm/10 Ml Oral.susp 1 Gm PO TIDBFRMEAL 06/22/17 Rx Avalide 150-12.5 Mg Tablet (Irbesartan/Hydrochlorothiazide) 1 Each Tablet 1 Each PO DAILY 06/19/17 Reported Comments Chest x-ray reviewed 07/17/2021. Mild progression of interstitial infiltrates and pleural effusion consistent with CHF. There is a skinfold on the left apex unlikely pneumothorax. Impression . Acute respiratory failure multifactorial status post exploratory laparotomy for perforated viscus Septic shock. Resolved. Off Levophed. Lactic acidosis. Resolved Acute renal failure. Stable History of prostate cancer Severe protein malnutrition present upon admission Biopsy of the bowel consistent with metastatic melanoma. Abnormal chest x-ray with mild progression of congestive heart failure \ Plan . Continue present assist-control mode. Oxygen requirement is stable. fentanyl , use as needed. Patient still not awake for a weaning trial. Will avoid further volume. Chest x-ray is slightly worse. Will try mild diuresis again today. off Levophed. Keep mean arterial pressure above 60. Empiric antibiotics Follow-up on cultures Final pathology from the bowel surgery consistent with metastatic melanoma. Oncology consulted. We will start weaning sedation and assess mental status improves Discussed with son in detail at the bedside. Advance directives discussed as well. Patient's son wants to continue with aggressive care. He also wants to pursue tracheostomy if patient fails to come off the ventilator. Discussed with oncology. He will see the patient today and make recommendations about the prognosis. Total cumulative critical care time was 30 minutes, discussed with RN and RT. YASMIN WEAVER MD Jul 17, 2021 11:20
--- NOTE | 2021-07-17 11:28 | NUR ---
Pharmacy TPN Dosing Note S: AZEB COOMBS is a 85 year old M Currently receiving Central Continuous TPN started 07/15/21 B:Pertinent PMH: NPO SINCE 07/12, PERFERATED BOWEL Height: 6 feet, 2.9 inches Weight: 74.6 kg Current diet: NPO LABS: Sodium: 141 Potassium: 3.5 Chloride: 111 Calcium: 7.5 Corrected Calcium: 9.74 Magnesium: 2.2 CO2: 21 SCr: 1.4 Glucose: 168 Albumin: 1.2 AST: 61 ALT: 31 TPN FORMULA: TPN TYPE: Central Continuous AMINO ACIDS: 75 gm DEXTROSE: 155 gm LIPIDS: 20 gm SODIUM CHLORIDE: 70 mEq SODIUM ACETATE: -- mEq SODIUM PHOSPHATE: -- mmol POTASSIUM CHLORIDE: 50 mEq POTASSIUM ACETATE: -- mEq POTASSIUM PHOSPHATE: 25 mmol MAGNESIUM: 10 mEq CALCIUM: -- mEq INSULIN: -- units MULTIPLE VITAMIN: 10 ml TRACE ELEMENTS: 1 mL ml(s) TPN PLAN: KPHOS BOLUS 15MM ORDERED TODAY. INCREASE PHOS IN TPN TO 25MM R: Continue TPN AT 63ML/HR Will monitor electrolytes, glucose, and tolerance to TPN. FELICE BALDERAS [facility], 07/17/21 [id number]
[2021-07-17] MEDS ORDERED: FUROSEMIDE 40 MG/4 ML VIAL. IVP ONE (11:45)
--- NOTE | 2021-07-17 11:57 | PDOC ---
Infectious Disease Note Subjective Subjective Pt is intubated on vent ROS ROS no n/v/d/ Vital Sign Vital Signs Vital Signs Date Time Temp Pulse Resp B/P (MAP) Pulse Ox O2 Delivery O2 Flow Rate FiO2 07/17/21 11:00 118 34 140/68 98 Ventilator 07/17/21 08:00 98.0 98.0 Physical Exam PHYSICAL EXAM GENERAL: Sedated, orally intubated gentleman, not in distress. VITAL SIGNS: stable HEENT: Both pupils are round and reacting. No conjunctival lesion. No lesion in the mouth. Mouth cannot be visualized much as orally intubated. NECK: Supple, no JVP, no lymphadenopathy. LUNGS: Clear. Decreased breath sounds. HEART: S1, S2 regular. No gallop or murmur. ABDOMEN: Multiple tubes in the post-surgical dressing not opened. EXTREMITIES: No edema, cyanosis. SKIN: Unremarkable. 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 Labs Lab Laboratory Tests Test 07/16/21 23:25 07/17/21 06:30 07/17/21 09:15 Glucose (Fingerstick) 139 mg/dL (70-99) Sodium Level 141 mmol/L (136-145) Potassium Level 3.5 mmol/L (3.5-5.1) Chloride Level 111 mmol/L (98-107) Carbon Dioxide Level 20 mmol/L (21-32) Anion Gap 10 (6-14) Blood Urea Nitrogen 42 mg/dL (8-26) Creatinine 1.4 mg/dL (0.7-1.3) Estimated GFR (Cockcroft-Gault) 48.2 Glucose Level 168 mg/dL (70-99) Calcium Level 7.5 mg/dL (8.5-10.1) Phosphorus Level 1.9 mg/dL (2.6-4.7) Magnesium Level 2.2 mg/dL (1.8-2.4) O2 Saturation 97 % (92-99) Arterial Blood pH 7.49 (7.35-7.45) Arterial Blood pCO2 at Patient Temp 26 mmHg (35-46) Arterial Blood pO2 at Patient Temp 80 mmHg (65-108) Arterial Blood HCO3 19 mmol/L (21-28) Arterial Blood Base Excess -3 mmol/L (-3-3) FiO2 40 Objective Assessment IMPRESSION: 1. Perforated viscus, status post exploratory laparotomy, reduction of gastric volvulus, hiatal hernia repair, gastrostomy tube placement and duodenoscopy with tube placement done. 2. Hypotension, requiring vasopressor support. 3. Respiratory failure, requiring ventilatory support. 4. Renal failure. 5. History of prostate cancer. Plan Plan of Care path + with melanoma cont antibiotics cont supportive care consider palliative care NYLA MOSS MD Jul 17, 2021 11:57
[2021-07-17] MEDS ORDERED: POTASSIUM PHOSPHATE DIBASIC 15 MMOL in IV NS 100 ML IV ONE (12:00)
[2021-07-17] MEDS: FAMOTIDINE 20 MG/2 ML VIAL IVP SCH (20:20)
[2021-07-17] MEDS: ENOXAPARIN 40 MG/0.4 ML SYRINGE. SQ SCH (20:21)
[2021-07-17] MEDS ORDERED: TOTAL PARENTERAL NUTRITION IV SCH (22:00)
[2021-07-17] MEDS ORDERED: AMINO ACID IV SCH (22:00)
[2021-07-17] MEDS ORDERED: [UNRECOGNIZED DRUG - OTHER] IV SCH (22:00)
[2021-07-17] MEDS ORDERED: DEXTROSE 70% IV SCH (22:00)
[2021-07-18] VITALS (24 sets, daily range): BP systolic 117–152; BP diastolic 59–88
[2021-07-18] MEDS: PIPERACILLIN/TAZOBACTAM 2.25 GM in IV NORMAL SALINE 50ML 50 ML IV SCH ×3 (06:10→17:10)
[2021-07-18 06:34] LABS: HEMATOCRIT 35.9 % (39.0-53.0); HEMOGLOBIN 12.3 g/dL (13.0-17.5); RED BLOOD COUNT 4.28 x10^6/uL (4.30-5.70); RED CELL DISTRIBUTION WIDTH 15.2 % (11.5-14.5); WHITE BLOOD COUNT 18.8 x10^3/uL (4.0-11.0)
[2021-07-18 06:49] LABS: ALBUMIN 1.1 g/dL (3.4-5.0); ALBUMIN/GLOBULIN RATIO 0.3 (1.0-1.7); CALCIUM 7.8 mg/dL (8.5-10.1); CREATININE 1.4 mg/dL (0.7-1.3); GFR 48.2; POTASSIUM 3.9 mmol/L (3.5-5.1); TOTAL BILIRUBIN 2.6 mg/dL (0.2-1.0); TOTAL PROTEIN 5.2 g/dL (6.4-8.2)
--- NOTE | 2021-07-18 07:04 | PN ---
DATE: 07/17/2021 SUBJECTIVE: The patient is resting, slightly propped up in bed, in no apparent distress. He continues to be intubated, mechanically ventilated. He is maintaining his oxygen saturation at 97% on FiO2 of 40%. He is off Levophed. He is only on TPN and Zosyn. He apparently did receive some fentanyl this morning because he became agitated. His blood pressure and heart rate are high and gets higher whenever the nursing staff tried to deliver any form of care. PHYSICAL EXAMINATION: GENERAL: When I examined him this morning, he looked pale, somewhat cachectic, but not jaundiced or cyanosed, no lymphadenopathy, no thyromegaly, no jugular venous distention. No lower limb edema. VITAL SIGNS: His heart rate was 112, blood pressure was 158/66, temperature was 98, respiratory rate was 31 and oxygen saturation was 97% on FiO2 of 40%. HEAD, EYES, EARS, NOSE AND THROAT: Normocephalic, atraumatic. He has orotracheal and orogastric tube. NECK: Supple. HEART: Normal first and second heart sounds. No gallop, rub or murmur. CHEST: Shows central trachea, equal bilateral expansion, air entry, vesicular breath sounds. I could not appreciate any crepitation or rhonchi anteriorly. ABDOMEN: Distended, soft with multiple drains. There is no guarding or rigidity. Bowel sounds are audible. NEUROLOGIC: He is off sedation. He did open his eyes, but does not track or follow commands. His intake was 2000, output was 2064. LABORATORY DATA: This morning showed a white cell count 12.7, hemoglobin 12, hematocrit 35, MCV 85 and platelet count 241,000. Serum sodium was 141, potassium 3.5, chloride 111, bicarbonate 20, anion gap of 10, BUN 42, creatinine 1.4, estimated GFR was 48 mL per minute. His glucose 168, calcium was 7.5, phosphorus 1.9, magnesium was 2.2. ASSESSMENT: 1. Perforated viscus, status post exploratory laparotomy, reduction of gastric volvulus, hiatal hernia repair, gastrostomy tube placement as well as jejunostomy tube placement. 2. Acute hypoxic respiratory failure, for which he continued to be intubated and mechanically ventilated. He is off sedation. He is now maintaining his oxygen saturation of 97% on FiO2 of 40%. 3. Hypotension, resolved. In fact, he is off Levophed and he is now hypertensive. 4. Acute kidney injury, improving. His creatinine is down from 2.2-1.4. 5. Other medical problems include: A. Hypertension. B. Hiatal hernia. C. Gastroesophageal reflux disease. D. Gastric ulcer. E. Chronic constipation. PLAN: Continue with mechanical ventilation and wean as tolerated. Continue with TPN for nutritional support. Continue with IV antibiotic in the form of piperacillin-tazobactam. Continue with famotidine for gastric prophylaxis. Continue with Lovenox for DVT prophylaxis. PETEY/YANETH/SARA DR: Marta TID: [id number]
[2021-07-18 07:44] LABS: BASE EXCESS ABG -4 mmol/L (-3-3); HCO3 ABG 19 mmol/L (21-28); PCO2 ABG 29 mmHg (35-46); PO2 ABG 90 mmHg (65-108); SAT O2 ABG 97 % (92-99)
[2021-07-18 07:48] LABS: FIO2 ABG 40
--- NOTE | 2021-07-18 08:39 | PDOC ---
SURGICAL PROGRESS NOTE DATE: 07/18/21 TIME: 08:38 Subjective Patient ventilated sedation is off minimal response Vital Signs Vital Signs Date Time Temp Pulse Resp B/P (MAP) Pulse Ox O2 Delivery O2 Flow Rate FiO2 07/18/21 08:00 98.3 94 34 134/62 98 Ventilator 98.3 07/17/21 20:51 2.0 I&O Intake and Output 07/18/21 07:00 Intake Total 2070 ml Output Total 1950 ml Balance 120 ml IV Total 1820 ml Blood Product IV Normal Saline Flush 250 ml Output Urine Total 1675 ml Drainage Total 275 ml PATIENT HAS A PEDRO: Yes General: Other (Ventilated with minimal response) Lungs: Clear to auscultation Heart: Regular rate Abdomen: Normal bowel sounds, Soft, Other (Tubes intact some drainage around the G-tube wounds clean dry and intact) Labs Laboratory Tests Test 07/16/21 23:25 07/17/21 06:30 07/17/21 09:15 07/18/21 06:00 Glucose (Fingerstick) 139 mg/dL (70-99) Sodium Level 141 mmol/L (136-145) 145 mmol/L (136-145) Potassium Level 3.5 mmol/L (3.5-5.1) 3.9 mmol/L (3.5-5.1) Chloride Level 111 mmol/L (98-107) 112 mmol/L (98-107) Carbon Dioxide Level 20 mmol/L (21-32) 20 mmol/L (21-32) Anion Gap 10 (6-14) 13 (6-14) Blood Urea Nitrogen 42 mg/dL (8-26) 53 mg/dL (8-26) Creatinine 1.4 mg/dL (0.7-1.3) 1.4 mg/dL (0.7-1.3) Estimated GFR (Cockcroft-Gault) 48.2 48.2 Glucose Level 168 mg/dL (70-99) 153 mg/dL (70-99) Calcium Level 7.5 mg/dL (8.5-10.1) 7.8 mg/dL (8.5-10.1) Phosphorus Level 1.9 mg/dL (2.6-4.7) Magnesium Level 2.2 mg/dL (1.8-2.4) O2 Saturation 97 % (92-99) Arterial Blood pH 7.49 (7.35-7.45) Arterial Blood pCO2 at Patient Temp 26 mmHg (35-46) Arterial Blood pO2 at Patient Temp 80 mmHg (65-108) Arterial Blood HCO3 19 mmol/L (21-28) Arterial Blood Base Excess -3 mmol/L (-3-3) FiO2 40 White Blood Count 18.8 x10^3/uL (4.0-11.0) Red Blood Count 4.28 x10^6/uL (4.30-5.70) Hemoglobin 12.3 g/dL (13.0-17.5) Hematocrit 35.9 % (39.0-53.0) Mean Corpuscular Volume 84 fL (79-100) Mean Corpuscular Hemoglobin 29 pg (25-35) Mean Corpuscular Hemoglobin Concent 34 g/dL (31-37) Red Cell Distribution Width 15.2 % (11.5-14.5) Platelet Count 334 x10^3/uL (140-400) BUN/Creatinine Ratio 38 (6-20) Total Bilirubin 2.6 mg/dL (0.2-1.0) Aspartate Amino Transf (AST/SGOT) 162 U/L (15-37) Alanine Aminotransferase (ALT/SGPT) 101 U/L (16-63) Alkaline Phosphatase 145 U/L (46-116) Total Protein 5.2 g/dL (6.4-8.2) Albumin 1.1 g/dL (3.4-5.0) Albumin/Globulin Ratio 0.3 (1.0-1.7) Test 07/18/21 07:25 O2 Saturation 97 % (92-99) Arterial Blood pH 7.44 (7.35-7.45) Arterial Blood pCO2 at Patient Temp 29 mmHg (35-46) Arterial Blood pO2 at Patient Temp 90 mmHg (65-108) Arterial Blood HCO3 19 mmol/L (21-28) Arterial Blood Base Excess -4 mmol/L (-3-3) FiO2 40 Laboratory Tests Test 07/17/21 09:15 07/18/21 06:00 07/18/21 07:25 O2 Saturation 97 % (92-99) 97 % (92-99) Arterial Blood pH 7.49 (7.35-7.45) 7.44 (7.35-7.45) Arterial Blood pCO2 at Patient Temp 26 mmHg (35-46) 29 mmHg (35-46) Arterial Blood pO2 at Patient Temp 80 mmHg (65-108) 90 mmHg (65-108) Arterial Blood HCO3 19 mmol/L (21-28) 19 mmol/L (21-28) Arterial Blood Base Excess -3 mmol/L (-3-3) -4 mmol/L (-3-3) FiO2 40 40 White Blood Count 18.8 x10^3/uL (4.0-11.0) Red Blood Count 4.28 x10^6/uL (4.30-5.70) Hemoglobin 12.3 g/dL (13.0-17.5) Hematocrit 35.9 % (39.0-53.0) Mean Corpuscular Volume 84 fL (79-100) Mean Corpuscular Hemoglobin 29 pg (25-35) Mean Corpuscular Hemoglobin Concent 34 g/dL (31-37) Red Cell Distribution Width 15.2 % (11.5-14.5) Platelet Count 334 x10^3/uL (140-400) Sodium Level 145 mmol/L (136-145) Potassium Level 3.9 mmol/L (3.5-5.1) Chloride Level 112 mmol/L (98-107) Carbon Dioxide Level 20 mmol/L (21-32) Anion Gap 13 (6-14) Blood Urea Nitrogen 53 mg/dL (8-26) Creatinine 1.4 mg/dL (0.7-1.3) Estimated GFR (Cockcroft-Gault) 48.2 BUN/Creatinine Ratio 38 (6-20) Glucose Level 153 mg/dL (70-99) Calcium Level 7.8 mg/dL (8.5-10.1) Total Bilirubin 2.6 mg/dL (0.2-1.0) Aspartate Amino Transf (AST/SGOT) 162 U/L (15-37) Alanine Aminotransferase (ALT/SGPT) 101 U/L (16-63) Alkaline Phosphatase 145 U/L (46-116) Total Protein 5.2 g/dL (6.4-8.2) Albumin 1.1 g/dL (3.4-5.0) Albumin/Globulin Ratio 0.3 (1.0-1.7) Assessment/Plan Status post repair of perforated duodenal ulcer with gastrostomy tube and duodenal tube Continue supportive care Justicifation of Admission Dx: Justifications for Admission: Justification of Admission Dx: Yes Sepsis: Hemodynamic Instability SHERI ERYNOLDS MD Jul 18, 2021 08:39
[2021-07-18 09:28] LABS: MAGNESIUM 2.3 mg/dL (1.8-2.4)
--- NOTE | 2021-07-18 09:52 | PN ---
DATE: 07/18/2021 SUBJECTIVE: The patient continued to be intubated and mechanically ventilated. He is on TPN, IV antibiotic. He is off all sedation. He apparently did open his eyes yesterday when it turned him, but he does not track or follow commands. PHYSICAL EXAMINATION: GENERAL: When I saw him this morning, he was resting slightly propped up in bed, slightly tachypneic, pale, cachectic, but not jaundiced or cyanosed, no lymphadenopathy, no thyromegaly, no jugular venous distention. No lower limb edema. VITAL SIGNS: His heart rate was 94, blood pressure was 134/62, temperature was 98.3, respiratory rate was 34 and oxygen saturation was 98% on FiO2 of 40%. HEAD, EYES, EARS, NOSE, AND THROAT: Normocephalic, atraumatic. NECK: Supple. HEART: Showed normal first and second heart sounds. No gallop, rub or murmur. CHEST: Clear to auscultation, no crepitation or rhonchi. ABDOMEN: Distended, soft, nontender. NEUROLOGIC: He continued to be encephalopathic. He had an indwelling Carreno catheter. His intake over the last 24 hours was 2050, output was 1250. LABORATORY DATA: As of this morning, his white cell count was 18.8, hemoglobin 12, hematocrit 36, MCV 84 and platelet count 334,000. His chemistry showed a serum sodium 141, potassium 3.9, chloride 112, bicarbonate 20, anion gap of 13, BUN 53, creatinine 1.4. Estimated GFR was 48 mL per minute. His glucose was 153, calcium was 7.8. Total bilirubin, AST, ALT, alkaline phosphatase are worsening. Total protein 5.2, albumin was 1.1. ASSESSMENT: 1. Perforated viscus, status post exploratory laparotomy, reduction of gastric volvulus and hiatal hernia repair, gastrostomy tube placement as well as jejunostomy tube placement. 2. Acute hypoxic respiratory failure, for which the patient continued to be intubated, mechanical ventilated. He is off sedation. He is now maintaining his oxygen saturation at 97% on FiO2 of 40%. 3. Hypertension, resolved. In fact, he is off Levophed and he is now normotensive. 4. Acute kidney injury, is improving. Her creatinine came down from 2.2-1.4. 5. He did spike his temperature last night and his white cell count is up to 18.8. 6. His liver enzymes are worsening. In fact, his total bilirubin is rising from 1.1-2.6. His AST, ALT, alkaline phosphatase are definitely higher. 7. He has severe protein-calorie malnutrition. Serum albumin is only 1.1. 8. He has multiple preexisting conditions include: A. Hypertension. B. Hiatal hernia. C. Gastroesophageal reflux disease. D. Gastric ulcer. E. Chronic constipation. PLAN: To continue mechanical ventilation, wean as tolerated. Continue with TPN for nutritional support. Continue with IV antibiotic in the form of piperacillin/tazobactam. Continue with famotidine for gastric prophylaxis and Lovenox for DVT prophylaxis. We will discuss with the Infectious Disease whether we need some more coverage given that he is spiking his temperature and his white cell count rising. EMIR DR: Marta TID: [id number]
--- NOTE | 2021-07-18 09:59 | PDOC ---
PULMONARY PROGRESS NOTES DATE: 07/18/21 TIME: 09:58 Subjective Patient is off Versed for 72 hours., Not fully awake. Mildly tachypneic. On as needed fentanyl. Remains on assist control mode, 40% FiO2 Vitals Vital Signs Date Time Temp Pulse Resp B/P (MAP) Pulse Ox O2 Delivery O2 Flow Rate FiO2 07/18/21 09:04 98 Ventilator 07/18/21 09:00 111 33 143/75 07/18/21 08:00 98.3 98.3 07/17/21 20:51 2.0 Lungs: Clear Cardiovascular: S1, S2 Abdomen: Soft, Other (Distended) Extremities: Other Skin: Warm Labs Laboratory Tests Test 07/16/21 23:25 07/17/21 06:30 07/17/21 09:15 07/18/21 06:00 Glucose (Fingerstick) 139 mg/dL (70-99) Sodium Level 141 mmol/L (136-145) 145 mmol/L (136-145) Potassium Level 3.5 mmol/L (3.5-5.1) 3.9 mmol/L (3.5-5.1) Chloride Level 111 mmol/L (98-107) 112 mmol/L (98-107) Carbon Dioxide Level 20 mmol/L (21-32) 20 mmol/L (21-32) Anion Gap 10 (6-14) 13 (6-14) Blood Urea Nitrogen 42 mg/dL (8-26) 53 mg/dL (8-26) Creatinine 1.4 mg/dL (0.7-1.3) 1.4 mg/dL (0.7-1.3) Estimated GFR (Cockcroft-Gault) 48.2 48.2 Glucose Level 168 mg/dL (70-99) 153 mg/dL (70-99) Calcium Level 7.5 mg/dL (8.5-10.1) 7.8 mg/dL (8.5-10.1) Phosphorus Level 1.9 mg/dL (2.6-4.7) 3.0 mg/dL (2.6-4.7) Magnesium Level 2.2 mg/dL (1.8-2.4) 2.3 mg/dL (1.8-2.4) O2 Saturation 97 % (92-99) Arterial Blood pH 7.49 (7.35-7.45) Arterial Blood pCO2 at Patient Temp 26 mmHg (35-46) Arterial Blood pO2 at Patient Temp 80 mmHg (65-108) Arterial Blood HCO3 19 mmol/L (21-28) Arterial Blood Base Excess -3 mmol/L (-3-3) FiO2 40 White Blood Count 18.8 x10^3/uL (4.0-11.0) Red Blood Count 4.28 x10^6/uL (4.30-5.70) Hemoglobin 12.3 g/dL (13.0-17.5) Hematocrit 35.9 % (39.0-53.0) Mean Corpuscular Volume 84 fL (79-100) Mean Corpuscular Hemoglobin 29 pg (25-35) Mean Corpuscular Hemoglobin Concent 34 g/dL (31-37) Red Cell Distribution Width 15.2 % (11.5-14.5) Platelet Count 334 x10^3/uL (140-400) BUN/Creatinine Ratio 38 (6-20) Total Bilirubin 2.6 mg/dL (0.2-1.0) Aspartate Amino Transf (AST/SGOT) 162 U/L (15-37) Alanine Aminotransferase (ALT/SGPT) 101 U/L (16-63) Alkaline Phosphatase 145 U/L (46-116) Total Protein 5.2 g/dL (6.4-8.2) Albumin 1.1 g/dL (3.4-5.0) Albumin/Globulin Ratio 0.3 (1.0-1.7) Test 07/18/21 07:25 O2 Saturation 97 % (92-99) Arterial Blood pH 7.44 (7.35-7.45) Arterial Blood pCO2 at Patient Temp 29 mmHg (35-46) Arterial Blood pO2 at Patient Temp 90 mmHg (65-108) Arterial Blood HCO3 19 mmol/L (21-28) Arterial Blood Base Excess -4 mmol/L (-3-3) FiO2 40 Laboratory Tests Test 07/18/21 06:00 07/18/21 07:25 White Blood Count 18.8 x10^3/uL (4.0-11.0) Red Blood Count 4.28 x10^6/uL (4.30-5.70) Hemoglobin 12.3 g/dL (13.0-17.5) Hematocrit 35.9 % (39.0-53.0) Mean Corpuscular Volume 84 fL (79-100) Mean Corpuscular Hemoglobin 29 pg (25-35) Mean Corpuscular Hemoglobin Concent 34 g/dL (31-37) Red Cell Distribution Width 15.2 % (11.5-14.5) Platelet Count 334 x10^3/uL (140-400) Sodium Level 145 mmol/L (136-145) Potassium Level 3.9 mmol/L (3.5-5.1) Chloride Level 112 mmol/L (98-107) Carbon Dioxide Level 20 mmol/L (21-32) Anion Gap 13 (6-14) Blood Urea Nitrogen 53 mg/dL (8-26) Creatinine 1.4 mg/dL (0.7-1.3) Estimated GFR (Cockcroft-Gault) 48.2 BUN/Creatinine Ratio 38 (6-20) Glucose Level 153 mg/dL (70-99) Calcium Level 7.8 mg/dL (8.5-10.1) Phosphorus Level 3.0 mg/dL (2.6-4.7) Magnesium Level 2.3 mg/dL (1.8-2.4) Total Bilirubin 2.6 mg/dL (0.2-1.0) Aspartate Amino Transf (AST/SGOT) 162 U/L (15-37) Alanine Aminotransferase (ALT/SGPT) 101 U/L (16-63) Alkaline Phosphatase 145 U/L (46-116) Total Protein 5.2 g/dL (6.4-8.2) Albumin 1.1 g/dL (3.4-5.0) Albumin/Globulin Ratio 0.3 (1.0-1.7) O2 Saturation 97 % (92-99) Arterial Blood pH 7.44 (7.35-7.45) Arterial Blood pCO2 at Patient Temp 29 mmHg (35-46) Arterial Blood pO2 at Patient Temp 90 mmHg (65-108) Arterial Blood HCO3 19 mmol/L (21-28) Arterial Blood Base Excess -4 mmol/L (-3-3) FiO2 40 Medications Active Scripts Medications Dose Route/Sig Max Daily Dose Days Date Category [Pantoprazole] 40 MG Tablet.dr 40 Mg PO BIDBFRMEAL 06/22/17 Rx Carafate (Sucralfate) 1 Gm/10 Ml Oral.susp 1 Gm PO TIDBFRMEAL 06/22/17 Rx Avalide 150-12.5 Mg Tablet (Irbesartan/Hydrochlorothiazide) 1 Each Tablet 1 Each PO DAILY 06/19/17 Reported Comments Chest x-ray reviewed 07/17/2021. Mild progression of interstitial infiltrates and pleural effusion consistent with CHF. There is a skinfold on the left apex unlikely pneumothorax. Impression . Acute respiratory failure multifactorial status post exploratory laparotomy for perforated viscus Septic shock. Resolved. Off Levophed. Lactic acidosis. Resolved Acute renal failure. Stable History of prostate cancer Severe protein malnutrition present upon admission Biopsy of the bowel consistent with metastatic melanoma. Abnormal chest x-ray with mild progression of congestive heart failure Persistent encephalopathy, likely post sedation induced. Cannot exclude the possibly of metastatic melanoma to the brain. \ Plan . Continue present assist-control mode. Oxygen requirement is stable. fentanyl , use as needed. Patient still not awake for a weaning trial. Will avoid further volume. Chest x-ray is slightly worse. Continue as needed Lasix. off Levophed. Keep mean arterial pressure above 60. Empiric antibiotics Follow-up on cultures Final pathology from the bowel surgery consistent with metastatic melanoma. Oncology consulted. Discussed with son in detail at the bedside. Advance directives discussed as well. Patient's son wants to continue with aggressive care. He also wants to pursue tracheostomy if patient fails to come off the ventilator. If patient's neuro status does not improve, I may order CT head tomorrow. Discussed with oncology. He will see the patient today and make recommendations about the prognosis. Discussed with RN and RT. YASMIN WEAVER MD Jul 18, 2021 09:59
--- NOTE | 2021-07-18 11:17 | PDOC ---
DATE OF SERVICE DATE: 07/18/21 TIME: 11:16 SUBJECTIVE ROS Intubated, on vent. Stable OBJECTIVE Vital Signs Vital Signs Date Time Temp Pulse Resp B/P (MAP) Pulse Ox O2 Delivery O2 Flow Rate FiO2 07/18/21 11:00 118 32 118/60 98 Ventilator 07/18/21 08:00 98.3 98.3 07/17/21 20:51 2.0 I & 0 Intake and Output 07/18/21 07:00 Intake Total 2070 ml Output Total 1950 ml Balance 120 ml IV Total 1820 ml Blood Product IV Normal Saline Flush 250 ml Output Urine Total 1675 ml Drainage Total 275 ml PHYSICAL EXAM Physical Exam GENERAL: orally intubated HEENT: Both pupils are round and reacting. orally intubated. NECK: Supple, no JVP, LUNGS: Clear. Decreased breath sounds. HEART: S1, S2 regular. No gallop or murmur. ABDOMEN: Multiple tubes in the post-surgical dressing EXTREMITIES: No edema, cyanosis. SKIN: Unremarkable. NEUROLOGIC: sedated and intubated. Carreno + DIAGNOSIS/ASSESSMENT Assessment & Plan SHELDON-- ATN/ Hypotensive/Bowel perf . UA unremarkable , CT scan No e/o BALLARD/Hyd ronephrosis , Creat trending down E-Lytes stable . Supportive care,maintain fluid balance, avoid Nephrotoxins SHELDON in 2018, resolved. No Interval labs available Renal Calculus 5 mm nonobstructing calculus is seen involving the lower pole of the right kidney. Perforated viscus, status post exploratory laparotomy, reduction of gastric volvulus, hiatal hernia repair, gastrostomy tube placement and duodenoscopy with tube placement done. Hypotension, requiring vasopressor support. Acute Respiratory failure, requiring ventilatory support. History of prostate cancer. HypoPhos- replace/ Adjust in TPN Nutrition- On TPN COMMENT/RELEVANT DATA Meds Current Medications Medications (Trade) Dose Ordered Sig/Armin Start Time Stop Time Status Last Admin Dose Admin Albumin Human 500 ml @ 125 mls/hr 1X ONCE 07/12/21 12:45 07/12/21 16:44 DC Cefoxitin Sodium (Mefoxin) 1 gm Q6H 07/12/21 14:00 07/13/21 02:01 DC 07/13/21 01:47 1 GM Ceftriaxone Sodium (Rocephin) 2 gm Q24H 07/12/21 07:00 07/13/21 09:46 DC 07/13/21 06:30 2 GM Dexamethasone Sodium Phosphate (Decadron) 4 mg STK-MED ONCE 07/12/21 07:43 07/12/21 07:44 DC Digoxin (Lanoxin) 500 mcg 1X ONCE 07/14/21 04:30 07/14/21 04:31 DC 07/14/21 04:40 500 MCG Enoxaparin Sodium (Lovenox 30mg Syringe) 30 mg Q24H 07/12/21 21:00 07/16/21 09:07 DC 07/15/21 21:04 30 MG Enoxaparin Sodium (Lovenox 40mg Syringe) 40 mg Q24H 07/16/21 21:00 07/17/21 20:21 40 MG Ephedrine Sulfate (ePHEDrine PF IN SALINE SYRINGE) 50 mg STK-MED ONCE 07/12/21 10:27 07/12/21 10:27 DC Etomidate (Amidate) 20 mg STK-MED ONCE 07/12/21 08:30 07/12/21 08:30 DC Famotidine (Pepcid Vial) 20 mg QHS 07/12/21 21:00 07/17/21 20:20 20 MG Fentanyl Citrate (Fentanyl 2ml Vial) 25 mcg PRN Q1HR PRN 07/16/21 19:30 07/17/21 20:21 25 MCG Furosemide (Lasix) 40 mg 1X ONCE 07/17/21 11:45 07/17/21 11:46 DC 07/17/21 12:28 40 MG Glycerin/ Hypromellose/ Polyethylene (Artificial Tears) 1 drop PRN Q1HR PRN 07/12/21 12:45 Glycopyrrolate (Robinul) 1 mg STK-MED ONCE 07/12/21 07:45 07/12/21 07:45 DC Hydromorphone HCl (Dilaudid) 0.5 mg PRN Q10MIN PRN 07/12/21 08:00 07/13/21 07:59 DC Info (Tpn Per Pharmacy) 1 each PRN DAILY PRN 07/15/21 10:30 07/17/21 11:14 1 EACH Labetalol HCl (Normodyne Iv Push) 10 mg PRN Q4HRS PRN 07/17/21 09:15 Magnesium Sulfate 50 ml @ 25 mls/hr 1X ONCE 07/14/21 12:30 07/14/21 14:29 DC 07/14/21 15:22 25 MLS/HR Metronidazole 100 ml @ 100 mls/hr Q8HRS 07/12/21 14:00 07/13/21 09:46 DC 07/13/21 06:15 100 MLS/HR Midazolam HCl 100 ml @ 1 mls/hr CONT PRN 07/12/21 12:45 07/16/21 19:27 DC 07/12/21 16:55 1 MLS/HR Midazolam HCl (Versed) 2 mg STK-MED ONCE 07/12/21 07:44 07/12/21 07:44 DC Morphine Sulfate (Morphine Sulfate) 1 mg PRN Q1HR PRN 07/12/21 12:15 07/12/21 13:51 DC Naloxone HCl (Narcan) 0.4 mg PRN Q2MIN PRN 07/12/21 12:15 Neostigmine Clements (Neostigmine Methylsulfate) 5 mg STK-MED ONCE 07/12/21 07:44 07/12/21 07:44 DC Norepinephrine Bitartrate 32 mg/ Dextrose 250 ml @ 3.192 mls/ hr CONT PRN 07/15/21 03:30 07/15/21 04:15 15.961 MLS/HR Norepinephrine Bitartrate 8 mg/ Dextrose 258 ml @ 11.204 mls/ hr CONT PRN 07/12/21 13:45 07/15/21 03:14 DC 07/14/21 23:22 56.018 MLS/HR Ondansetron HCl (Zofran) 4 mg PRN Q6HRS PRN 07/12/21 12:15 Phenylephrine HCl (Lionel-Synephrine Inj) 10 mg STK-MED ONCE 07/12/21 11:54 07/12/21 11:55 DC Phenylephrine HCl (PHENYLEPHRINE in 0.9% NACL PF) 1 mg STK-MED ONCE 07/12/21 10:27 07/12/21 10:27 DC Piperacillin Sod/ Tazobactam Sod 2.25 gm/Sodium Chloride 50 ml @ 100 mls/hr Q6HRS 07/13/21 12:00 07/18/21 06:10 100 MLS/HR Potassium Phosphate 15 mmol/ Sodium Chloride 105 ml @ 52.5 mls/hr 1X ONCE 07/17/21 12:00 07/17/21 13:59 DC 07/17/21 12:32 52.5 MLS/HR Prochlorperazine Edisylate (Compazine) 5 mg PACU PRN PRN 07/12/21 08:00 07/13/21 07:59 DC Propofol (Diprivan) 1,000 mg STK-MED ONCE 07/12/21 13:00 07/13/21 12:22 DC Ringer's Solution 1,000 ml @ 100 mls/hr Q10H 07/12/21 12:15 07/13/21 19:33 DC 07/13/21 10:39 100 MLS/HR Rocuronium Clements (Zemuron) 100 mg STK-MED ONCE 07/12/21 09:34 07/12/21 09:34 DC Sevoflurane (Ultane) 60 ml STK-MED ONCE 07/12/21 21:15 07/12/21 21:15 DC Sodium Bicarbonate 150 meq/Dextrose 1,150 ml @ 75 mls/hr [id number] 07/12/21 14:30 07/13/21 19:34 DC 07/13/21 05:37 75 MLS/HR Sodium Bicarbonate (Sodium Bicarb Adult 8.4% Syr) 50 meq STK-MED ONCE 07/12/21 21:15 07/12/21 21:15 DC Sodium Chloride (Normal Saline Flush) 3 ml QSHIFT PRN 07/12/21 12:15 Sodium Chloride 70 meq/Potassium Chloride 50 meq/ Potassium Phosphate 20 mmol/ Magnesium Sulfate 10 meq/ Multivitamins 10 ml/Zinc/Copper/ Manganese/ Selenium 1 ml/ Total Parenteral Nutrition/Amino Acids/Dextrose/ Fat Emulsion Intravenous 1,512 ml @ 63 mls/hr TPN CONT 07/16/21 22:00 07/17/21 21:59 DC 07/16/21 21:38 63 MLS/HR Sodium Chloride 70 meq/Potassium Chloride 50 meq/ Potassium Phosphate 25 mmol/ Magnesium Sulfate 10 meq/ Multivitamins 10 ml/Zinc/Copper/ Manganese/ Selenium 1 ml/ Total Parenteral Nutrition/Amino Acids/Dextrose/ Fat Emulsion Intravenous 1,512 ml @ 63 mls/hr TPN CONT 07/17/21 22:00 07/18/21 21:59 07/17/21 20:22 63 MLS/HR Sodium Chloride 90 meq/Potassium Chloride 50 meq/ Potassium Phosphate 13.6 mmol/Magnesium Sulfate 10 meq/ Multivitamins 10 ml/Zinc/Copper/ Manganese/ Selenium 1 ml/ Total Parenteral Nutrition/Amino Acids/Dextrose/ Fat Emulsion Intravenous 1,512 ml @ 63 mls/hr TPN CONT 07/15/21 22:00 07/16/21 21:59 DC 07/15/21 22:05 63 MLS/HR Succinylcholine Chloride (Anectine) 200 mg STK-MED ONCE 07/12/21 07:44 07/12/21 07:44 DC Lab Laboratory Tests Test 07/18/21 06:00 07/18/21 07:25 White Blood Count 18.8 x10^3/uL (4.0-11.0) Red Blood Count 4.28 x10^6/uL (4.30-5.70) Hemoglobin 12.3 g/dL (13.0-17.5) Hematocrit 35.9 % (39.0-53.0) Mean Corpuscular Volume 84 fL (79-100) Mean Corpuscular Hemoglobin 29 pg (25-35) Mean Corpuscular Hemoglobin Concent 34 g/dL (31-37) Red Cell Distribution Width 15.2 % (11.5-14.5) Platelet Count 334 x10^3/uL (140-400) Sodium Level 145 mmol/L (136-145) Potassium Level 3.9 mmol/L (3.5-5.1) Chloride Level 112 mmol/L (98-107) Carbon Dioxide Level 20 mmol/L (21-32) Anion Gap 13 (6-14) Blood Urea Nitrogen 53 mg/dL (8-26) Creatinine 1.4 mg/dL (0.7-1.3) Estimated GFR (Cockcroft-Gault) 48.2 BUN/Creatinine Ratio 38 (6-20) Glucose Level 153 mg/dL (70-99) Calcium Level 7.8 mg/dL (8.5-10.1) Phosphorus Level 3.0 mg/dL (2.6-4.7) Magnesium Level 2.3 mg/dL (1.8-2.4) Total Bilirubin 2.6 mg/dL (0.2-1.0) Aspartate Amino Transf (AST/SGOT) 162 U/L (15-37) Alanine Aminotransferase (ALT/SGPT) 101 U/L (16-63) Alkaline Phosphatase 145 U/L (46-116) Total Protein 5.2 g/dL (6.4-8.2) Albumin 1.1 g/dL (3.4-5.0) Albumin/Globulin Ratio 0.3 (1.0-1.7) O2 Saturation 97 % (92-99) Arterial Blood pH 7.44 (7.35-7.45) Arterial Blood pCO2 at Patient Temp 29 mmHg (35-46) Arterial Blood pO2 at Patient Temp 90 mmHg (65-108) Arterial Blood HCO3 19 mmol/L (21-28) Arterial Blood Base Excess -4 mmol/L (-3-3) FiO2 40 Results All relevant outside records, renal labs, imaging studies, telemetry/EKG's were reviewed. Justicifation of Admission Dx: Justifications for Admission: Justification of Admission Dx: Yes Sepsis: Hemodynamic Instability JENNIE MOODY MD Jul 18, 2021 11:17
[2021-07-18] MEDS: TPN PER PHARMACY MC PRN (11:36)
--- NOTE | 2021-07-18 12:22 | NUR ---
Pharmacy TPN Dosing Note S: AZEB COOMBS is a 85 year old M Currently receiving Central Continuous TPN started 07/15/21 B:Pertinent PMH: NPO SINCE 07/12, PERFERATED BOWEL Height: 6 feet, 2.9 inches Weight: 74.6 kg Current diet: NPO LABS: Sodium: 145 Potassium: 3.9 Chloride: 112 Calcium: 7.8 Corrected Calcium: 10.04 Magnesium: 2.3 CO2: 20 SCr: 1.4 Glucose: 153 Albumin: 1.2 AST: 61 ALT: 31 TPN FORMULA: TPN TYPE: Central Continuous AMINO ACIDS: 75 gm DEXTROSE: 155 gm LIPIDS: 20 gm SODIUM CHLORIDE: -- mEq SODIUM ACETATE: 70 mEq SODIUM PHOSPHATE: -- mmol POTASSIUM CHLORIDE: 50 mEq POTASSIUM ACETATE: -- mEq POTASSIUM PHOSPHATE: 22 mmol MAGNESIUM: 8 mEq CALCIUM: -- mEq INSULIN: -- units MULTIPLE VITAMIN: 10 ml TRACE ELEMENTS: 1 mL ml(s) TPN PLAN: CHANGED NACL TO NAACETATE/ ADJUSTED PHOSPHATE AND MAG. R: Continue TPN AT 63ML/HR Will monitor electrolytes, glucose, and tolerance to TPN. FELICE BALDERAS [facility], 07/18/21 [id number]
--- NOTE | 2021-07-18 15:50 | PDOC ---
Infectious Disease Note Subjective: Subjective Pt is intubated on vent Febrile last 24 hours Vital Signs: Vital Signs Vital Signs Date Time Temp Pulse Resp B/P (MAP) Pulse Ox O2 Delivery O2 Flow Rate FiO2 07/18/21 15:46 Mechanical Ventilator 07/18/21 15:12 98 07/18/21 15:00 95 34 152/74 07/18/21 12:00 99.3 99.3 07/17/21 20:51 2.0 Physical Exam: PHYSICAL EXAM GENERAL: Sedated, orally intubated gentleman in [facility] [address] [place] HEENT: Both pupils are round and reacting. No conjunctival lesion. No lesion in the mouth. Mouth cannot be visualized much as orally intubated. LUNGS: . Decreased breath sounds. HEART: S1, S2 regular. No murmur. ABDOMEN: Multiple tubes in the post-surgical dressing not opened. EXTREMITIES: No edema, cyanosis. SKIN: No generalized rash NEUROLOGIC: Unable to assess Medications: Inpatient Meds: Medications reviewed. Labs: Lab Laboratory Tests Test 07/18/21 06:00 07/18/21 07:25 White Blood Count 18.8 x10^3/uL (4.0-11.0) Red Blood Count 4.28 x10^6/uL (4.30-5.70) Hemoglobin 12.3 g/dL (13.0-17.5) Hematocrit 35.9 % (39.0-53.0) Mean Corpuscular Volume 84 fL (79-100) Mean Corpuscular Hemoglobin 29 pg (25-35) Mean Corpuscular Hemoglobin Concent 34 g/dL (31-37) Red Cell Distribution Width 15.2 % (11.5-14.5) Platelet Count 334 x10^3/uL (140-400) Sodium Level 145 mmol/L (136-145) Potassium Level 3.9 mmol/L (3.5-5.1) Chloride Level 112 mmol/L (98-107) Carbon Dioxide Level 20 mmol/L (21-32) Anion Gap 13 (6-14) Blood Urea Nitrogen 53 mg/dL (8-26) Creatinine 1.4 mg/dL (0.7-1.3) Estimated GFR (Cockcroft-Gault) 48.2 BUN/Creatinine Ratio 38 (6-20) Glucose Level 153 mg/dL (70-99) Calcium Level 7.8 mg/dL (8.5-10.1) Phosphorus Level 3.0 mg/dL (2.6-4.7) Magnesium Level 2.3 mg/dL (1.8-2.4) Total Bilirubin 2.6 mg/dL (0.2-1.0) Aspartate Amino Transf (AST/SGOT) 162 U/L (15-37) Alanine Aminotransferase (ALT/SGPT) 101 U/L (16-63) Alkaline Phosphatase 145 U/L (46-116) Total Protein 5.2 g/dL (6.4-8.2) Albumin 1.1 g/dL (3.4-5.0) Albumin/Globulin Ratio 0.3 (1.0-1.7) O2 Saturation 97 % (92-99) Arterial Blood pH 7.44 (7.35-7.45) Arterial Blood pCO2 at Patient Temp 29 mmHg (35-46) Arterial Blood pO2 at Patient Temp 90 mmHg (65-108) Arterial Blood HCO3 19 mmol/L (21-28) Arterial Blood Base Excess -4 mmol/L (-3-3) FiO2 40 Objective: Assessment: IMPRESSION: 1. Perforated viscus, status post exploratory laparotomy, reduction of gastric volvulus, hiatal hernia repair, gastrostomy tube placement and duodenoscopy with tube placement done. 2. Hypotension, requiring vasopressor support. 3. Respiratory failure, requiring ventilatory support. 4. Renal failure. 5. History of prostate cancer. path + with melanoma Plan: Plan of Care Change Zosyn to Merrem Add daptomycin Monitor labs and cultures cont supportive care Critically ill Prognosis very poor consider palliative care Discussed with MARISOL LAYNE MD Jul 18, 2021 15:50
[2021-07-18 19:35] LABS: BACTERIA,URINE 0 /HPF (0-FEW); WBC,URINE 0 /HPF (0-4)
[2021-07-18 19:36] LABS: HYALINE CASTS, URINE FEW /HPF
[2021-07-18] MEDS: DAPTOmycin (GENERIC) IVPB 450 MG in IV NORMAL SALINE 50ML 50 ML IV SCH (20:15)
[2021-07-18] MEDS: ENOXAPARIN 40 MG/0.4 ML SYRINGE. SQ SCH (21:38)
[2021-07-18] MEDS: FAMOTIDINE 20 MG/2 ML VIAL IVP SCH (21:38)
[2021-07-18] MEDS: MEROPENEM 500 MG in IV NORMAL SALINE 50ML 50 ML IV SCH (21:38)
[2021-07-18] MEDS ORDERED: TOTAL PARENTERAL NUTRITION IV SCH (22:00)
[2021-07-18] MEDS ORDERED: [UNRECOGNIZED DRUG - OTHER] IV SCH (22:00)
[2021-07-18] MEDS ORDERED: DEXTROSE 70% IV SCH (22:00)
[2021-07-18] MEDS ORDERED: AMINO ACID IV SCH (22:00)
[2021-07-19] VITALS (24 sets, daily range): BP systolic 103–149; BP diastolic 58–80
[2021-07-19] MEDS: MEROPENEM 500 MG in IV NORMAL SALINE 50ML 50 ML IV SCH ×3 (06:04→21:39)
[2021-07-19 06:59] LABS: ALBUMIN/GLOBULIN RATIO 0.2 (1.0-1.7); CALCIUM 7.8 mg/dL (8.5-10.1); CREATININE 1.4 mg/dL (0.7-1.3); GFR 48.2; TOTAL BILIRUBIN 1.5 mg/dL (0.2-1.0); TOTAL PROTEIN 5.1 g/dL (6.4-8.2)
[2021-07-19 07:04] LABS: BASO % 0 % (0-3); EOS % 0 % (0-3); HEMATOCRIT 33.7 % (39.0-53.0); HEMOGLOBIN 11.3 g/dL (13.0-17.5); LYMPH # 0.7 x10^3/uL (1.0-4.8); LYMPH % 4 % (24-48); MEAN CORPUSCULAR HEMOGLOBIN 29 pg (25-35); MEAN CORPUSCULAR HGB CONC 34 g/dL (31-37); MEAN CORPUSCULAR VOLUME 86 fL (79-100); MONO # 1.5 x10^3/uL (0.0-1.1); MONO % 8 % (0-9); NEUT # 17.4 x10^3/uL (1.8-7.7); NEUT % 89 % (31-73); PLATELET COUNT 381 x10^3/uL (140-400); RED BLOOD COUNT 3.93 x10^6/uL (4.30-5.70); RED CELL DISTRIBUTION WIDTH 15.8 % (11.5-14.5); WHITE BLOOD COUNT 19.6 x10^3/uL (4.0-11.0)
[2021-07-19 08:12] LABS: BASE EXCESS ABG -4 mmol/L (-3-3); CORRECTED PCO2 ABG 28 mmHg; CORRECTED PH ABG 7.45; CORRECTED PO2 ABG 117 mmHg; HCO3 ABG 19 mmol/L (21-28); PCO2 ABG 27 mmHg (35-46); PO2 ABG 112 mmHg (65-108); SAT O2 ABG 98 % (92-99)
[2021-07-19 08:15] LABS: FIO2 ABG 40
--- NOTE | 2021-07-19 08:50 | PDOC ---
SURGICAL PROGRESS NOTE DATE: 07/19/21 TIME: 08:49 Subjective Patient still ventilated with minimal responsiveness Vital Signs Vital Signs Date Time Temp Pulse Resp B/P (MAP) Pulse Ox O2 Delivery O2 Flow Rate FiO2 07/19/21 08:00 100.3 106 32 129/58 99 Ventilator 100.3 I&O Intake and Output 07/19/21 07:00 Intake Total 883 ml Output Total 1375 ml Balance -492 ml IV Total 883 ml Output Urine Total 1275 ml Drainage Total 100 ml PATIENT HAS A PEDRO: Yes General: Other (Ventilated) Abdomen: Soft, Other (Wounds clean dry and intact G-tube and duodenal tube intact) Labs Laboratory Tests Test 07/17/21 09:15 07/18/21 06:00 07/18/21 07:25 07/18/21 18:40 O2 Saturation 97 % (92-99) 97 % (92-99) Arterial Blood pH 7.49 (7.35-7.45) 7.44 (7.35-7.45) Arterial Blood pCO2 at Patient Temp 26 mmHg (35-46) 29 mmHg (35-46) Arterial Blood pO2 at Patient Temp 80 mmHg (65-108) 90 mmHg (65-108) Arterial Blood HCO3 19 mmol/L (21-28) 19 mmol/L (21-28) Arterial Blood Base Excess -3 mmol/L (-3-3) -4 mmol/L (-3-3) FiO2 40 40 White Blood Count 18.8 x10^3/uL (4.0-11.0) Red Blood Count 4.28 x10^6/uL (4.30-5.70) Hemoglobin 12.3 g/dL (13.0-17.5) Hematocrit 35.9 % (39.0-53.0) Mean Corpuscular Volume 84 fL (79-100) Mean Corpuscular Hemoglobin 29 pg (25-35) Mean Corpuscular Hemoglobin Concent 34 g/dL (31-37) Red Cell Distribution Width 15.2 % (11.5-14.5) Platelet Count 334 x10^3/uL (140-400) Sodium Level 145 mmol/L (136-145) Potassium Level 3.9 mmol/L (3.5-5.1) Chloride Level 112 mmol/L (98-107) Carbon Dioxide Level 20 mmol/L (21-32) Anion Gap 13 (6-14) Blood Urea Nitrogen 53 mg/dL (8-26) Creatinine 1.4 mg/dL (0.7-1.3) Estimated GFR (Cockcroft-Gault) 48.2 BUN/Creatinine Ratio 38 (6-20) Glucose Level 153 mg/dL (70-99) Calcium Level 7.8 mg/dL (8.5-10.1) Phosphorus Level 3.0 mg/dL (2.6-4.7) Magnesium Level 2.3 mg/dL (1.8-2.4) Total Bilirubin 2.6 mg/dL (0.2-1.0) Aspartate Amino Transf (AST/SGOT) 162 U/L (15-37) Alanine Aminotransferase (ALT/SGPT) 101 U/L (16-63) Alkaline Phosphatase 145 U/L (46-116) Total Protein 5.2 g/dL (6.4-8.2) Albumin 1.1 g/dL (3.4-5.0) Albumin/Globulin Ratio 0.3 (1.0-1.7) Urine Collection Type Unknown Urine Color (Auto) Yellow Urine Turbidity Clear Urine pH (Auto) 5.5 (<5.0-8.0) Urine Specific [place] 1.026 (1.000-1.030) Urine Protein (Auto) 50 mg/dL (Negative) Urine Glucose (Auto)(UA) Negative mg/dL (Negative) Urine Ketones (Auto) Negative mg/dL (Negative) Urine Blood (Auto) Small (Negative) Urine Nitrite Negative (Negative) Urine Bilirubin (Auto) Negative (Negative) Urine Urobilinogen (Auto) Normal mg/dL (Normal) Urine Leukocyte Esterase (Auto) Negative (Negative) Urine RBC 1-2 /HPF (0-2) Urine WBC 0 /HPF (0-4) Urine Bacteria 0 /HPF (0-FEW) Urine Hyaline Casts Few /HPF Urine Mucus Slight /LPF Test 07/19/21 06:00 07/19/21 08:00 White Blood Count 19.6 x10^3/uL (4.0-11.0) Red Blood Count 3.93 x10^6/uL (4.30-5.70) Hemoglobin 11.3 g/dL (13.0-17.5) Hematocrit 33.7 % (39.0-53.0) Mean Corpuscular Volume 86 fL (79-100) Mean Corpuscular Hemoglobin 29 pg (25-35) Mean Corpuscular Hemoglobin Concent 34 g/dL (31-37) Red Cell Distribution Width 15.8 % (11.5-14.5) Platelet Count 381 x10^3/uL (140-400) Neutrophils (%) (Auto) 89 % (31-73) Lymphocytes (%) (Auto) 4 % (24-48) Monocytes (%) (Auto) 8 % (0-9) Eosinophils (%) (Auto) 0 % (0-3) Basophils (%) (Auto) 0 % (0-3) Neutrophils # (Auto) 17.4 x10^3/uL (1.8-7.7) Lymphocytes # (Auto) 0.7 x10^3/uL (1.0-4.8) Monocytes # (Auto) 1.5 x10^3/uL (0.0-1.1) Eosinophils # (Auto) 0.0 x10^3/uL (0.0-0.7) Basophils # (Auto) 0.0 x10^3/uL (0.0-0.2) Sodium Level 146 mmol/L (136-145) Potassium Level 4.0 mmol/L (3.5-5.1) Chloride Level 115 mmol/L (98-107) Carbon Dioxide Level 21 mmol/L (21-32) Anion Gap 10 (6-14) Blood Urea Nitrogen 61 mg/dL (8-26) Creatinine 1.4 mg/dL (0.7-1.3) Estimated GFR (Cockcroft-Gault) 48.2 BUN/Creatinine Ratio 44 (6-20) Glucose Level 144 mg/dL (70-99) Calcium Level 7.8 mg/dL (8.5-10.1) Total Bilirubin 1.5 mg/dL (0.2-1.0) Aspartate Amino Transf (AST/SGOT) 133 U/L (15-37) Alanine Aminotransferase (ALT/SGPT) 100 U/L (16-63) Alkaline Phosphatase 178 U/L (46-116) Creatine Kinase 36 U/L (39-308) Total Protein 5.1 g/dL (6.4-8.2) Albumin 1.0 g/dL (3.4-5.0) Albumin/Globulin Ratio 0.2 (1.0-1.7) O2 Saturation 98 % (92-99) Arterial Blood pH 7.46 (7.35-7.45) Arterial Blood pH (Temp corrected) 7.45 Arterial Blood pCO2 at Patient Temp 27 mmHg (35-46) Arterial Blood pCO2 (Temp correct) 28 mmHg Arterial Blood pO2 at Patient Temp 112 mmHg (65-108) Arterial Blood pO2 (Temp corrected) 117 mmHg Arterial Blood HCO3 19 mmol/L (21-28) Arterial Blood Base Excess -4 mmol/L (-3-3) FiO2 40 Laboratory Tests Test 07/18/21 18:40 07/19/21 06:00 07/19/21 08:00 Urine Collection Type Unknown Urine Color (Auto) Yellow Urine Turbidity Clear Urine pH (Auto) 5.5 (<5.0-8.0) Urine Specific [place] 1.026 (1.000-1.030) Urine Protein (Auto) 50 mg/dL (Negative) Urine Glucose (Auto)(UA) Negative mg/dL (Negative) Urine Ketones (Auto) Negative mg/dL (Negative) Urine Blood (Auto) Small (Negative) Urine Nitrite Negative (Negative) Urine Bilirubin (Auto) Negative (Negative) Urine Urobilinogen (Auto) Normal mg/dL (Normal) Urine Leukocyte Esterase (Auto) Negative (Negative) Urine RBC 1-2 /HPF (0-2) Urine WBC 0 /HPF (0-4) Urine Bacteria 0 /HPF (0-FEW) Urine Hyaline Casts Few /HPF Urine Mucus Slight /LPF White Blood Count 19.6 x10^3/uL (4.0-11.0) Red Blood Count 3.93 x10^6/uL (4.30-5.70) Hemoglobin 11.3 g/dL (13.0-17.5) Hematocrit 33.7 % (39.0-53.0) Mean Corpuscular Volume 86 fL (79-100) Mean Corpuscular Hemoglobin 29 pg (25-35) Mean Corpuscular Hemoglobin Concent 34 g/dL (31-37) Red Cell Distribution Width 15.8 % (11.5-14.5) Platelet Count 381 x10^3/uL (140-400) Neutrophils (%) (Auto) 89 % (31-73) Lymphocytes (%) (Auto) 4 % (24-48) Monocytes (%) (Auto) 8 % (0-9) Eosinophils (%) (Auto) 0 % (0-3) Basophils (%) (Auto) 0 % (0-3) Neutrophils # (Auto) 17.4 x10^3/uL (1.8-7.7) Lymphocytes # (Auto) 0.7 x10^3/uL (1.0-4.8) Monocytes # (Auto) 1.5 x10^3/uL (0.0-1.1) Eosinophils # (Auto) 0.0 x10^3/uL (0.0-0.7) Basophils # (Auto) 0.0 x10^3/uL (0.0-0.2) Sodium Level 146 mmol/L (136-145) Potassium Level 4.0 mmol/L (3.5-5.1) Chloride Level 115 mmol/L (98-107) Carbon Dioxide Level 21 mmol/L (21-32) Anion Gap 10 (6-14) Blood Urea Nitrogen 61 mg/dL (8-26) Creatinine 1.4 mg/dL (0.7-1.3) Estimated GFR (Cockcroft-Gault) 48.2 BUN/Creatinine Ratio 44 (6-20) Glucose Level 144 mg/dL (70-99) Calcium Level 7.8 mg/dL (8.5-10.1) Total Bilirubin 1.5 mg/dL (0.2-1.0) Aspartate Amino Transf (AST/SGOT) 133 U/L (15-37) Alanine Aminotransferase (ALT/SGPT) 100 U/L (16-63) Alkaline Phosphatase 178 U/L (46-116) Creatine Kinase 36 U/L (39-308) Total Protein 5.1 g/dL (6.4-8.2) Albumin 1.0 g/dL (3.4-5.0) Albumin/Globulin Ratio 0.2 (1.0-1.7) O2 Saturation 98 % (92-99) Arterial Blood pH 7.46 (7.35-7.45) Arterial Blood pH (Temp corrected) 7.45 Arterial Blood pCO2 at Patient Temp 27 mmHg (35-46) Arterial Blood pCO2 (Temp correct) 28 mmHg Arterial Blood pO2 at Patient Temp 112 mmHg (65-108) Arterial Blood pO2 (Temp corrected) 117 mmHg Arterial Blood HCO3 19 mmol/L (21-28) Arterial Blood Base Excess -4 mmol/L (-3-3) FiO2 40 Assessment/Plan No acute changes supportive care Justicifation of Admission Dx: Justifications for Admission: Justification of Admission Dx: Yes Sepsis: Hemodynamic Instability SHERI REYNOLDS MD July 19, 2021 08:50
--- NOTE | 2021-07-19 09:05 | PDOC ---
PULMONARY PROGRESS NOTES DATE: 07/19/21 TIME: 09:01 Subjective Patient is off Versed for 4 days., Not fully awake. Mildly tachypneic. On as needed fentanyl. Remains on assist control mode, 40% FiO2 Vitals Vital Signs Date Time Temp Pulse Resp B/P (MAP) Pulse Ox O2 Delivery O2 Flow Rate FiO2 07/19/21 08:00 100.3 106 32 129/58 99 Ventilator 100.3 Lungs: Clear Cardiovascular: S1, S2 Abdomen: Soft, Other (Distended) Extremities: Other (Significant scrotal edema.) Skin: Warm Labs Laboratory Tests Test 07/17/21 09:15 07/18/21 06:00 07/18/21 07:25 07/18/21 18:40 O2 Saturation 97 % (92-99) 97 % (92-99) Arterial Blood pH 7.49 (7.35-7.45) 7.44 (7.35-7.45) Arterial Blood pCO2 at Patient Temp 26 mmHg (35-46) 29 mmHg (35-46) Arterial Blood pO2 at Patient Temp 80 mmHg (65-108) 90 mmHg (65-108) Arterial Blood HCO3 19 mmol/L (21-28) 19 mmol/L (21-28) Arterial Blood Base Excess -3 mmol/L (-3-3) -4 mmol/L (-3-3) FiO2 40 40 White Blood Count 18.8 x10^3/uL (4.0-11.0) Red Blood Count 4.28 x10^6/uL (4.30-5.70) Hemoglobin 12.3 g/dL (13.0-17.5) Hematocrit 35.9 % (39.0-53.0) Mean Corpuscular Volume 84 fL (79-100) Mean Corpuscular Hemoglobin 29 pg (25-35) Mean Corpuscular Hemoglobin Concent 34 g/dL (31-37) Red Cell Distribution Width 15.2 % (11.5-14.5) Platelet Count 334 x10^3/uL (140-400) Sodium Level 145 mmol/L (136-145) Potassium Level 3.9 mmol/L (3.5-5.1) Chloride Level 112 mmol/L (98-107) Carbon Dioxide Level 20 mmol/L (21-32) Anion Gap 13 (6-14) Blood Urea Nitrogen 53 mg/dL (8-26) Creatinine 1.4 mg/dL (0.7-1.3) Estimated GFR (Cockcroft-Gault) 48.2 BUN/Creatinine Ratio 38 (6-20) Glucose Level 153 mg/dL (70-99) Calcium Level 7.8 mg/dL (8.5-10.1) Phosphorus Level 3.0 mg/dL (2.6-4.7) Magnesium Level 2.3 mg/dL (1.8-2.4) Total Bilirubin 2.6 mg/dL (0.2-1.0) Aspartate Amino Transf (AST/SGOT) 162 U/L (15-37) Alanine Aminotransferase (ALT/SGPT) 101 U/L (16-63) Alkaline Phosphatase 145 U/L (46-116) Total Protein 5.2 g/dL (6.4-8.2) Albumin 1.1 g/dL (3.4-5.0) Albumin/Globulin Ratio 0.3 (1.0-1.7) Urine Collection Type Unknown Urine Color (Auto) Yellow Urine Turbidity Clear Urine pH (Auto) 5.5 (<5.0-8.0) Urine Specific [place] 1.026 (1.000-1.030) Urine Protein (Auto) 50 mg/dL (Negative) Urine Glucose (Auto)(UA) Negative mg/dL (Negative) Urine Ketones (Auto) Negative mg/dL (Negative) Urine Blood (Auto) Small (Negative) Urine Nitrite Negative (Negative) Urine Bilirubin (Auto) Negative (Negative) Urine Urobilinogen (Auto) Normal mg/dL (Normal) Urine Leukocyte Esterase (Auto) Negative (Negative) Urine RBC 1-2 /HPF (0-2) Urine WBC 0 /HPF (0-4) Urine Bacteria 0 /HPF (0-FEW) Urine Hyaline Casts Few /HPF Urine Mucus Slight /LPF Test 07/19/21 06:00 07/19/21 08:00 White Blood Count 19.6 x10^3/uL (4.0-11.0) Red Blood Count 3.93 x10^6/uL (4.30-5.70) Hemoglobin 11.3 g/dL (13.0-17.5) Hematocrit 33.7 % (39.0-53.0) Mean Corpuscular Volume 86 fL (79-100) Mean Corpuscular Hemoglobin 29 pg (25-35) Mean Corpuscular Hemoglobin Concent 34 g/dL (31-37) Red Cell Distribution Width 15.8 % (11.5-14.5) Platelet Count 381 x10^3/uL (140-400) Neutrophils (%) (Auto) 89 % (31-73) Lymphocytes (%) (Auto) 4 % (24-48) Monocytes (%) (Auto) 8 % (0-9) Eosinophils (%) (Auto) 0 % (0-3) Basophils (%) (Auto) 0 % (0-3) Neutrophils # (Auto) 17.4 x10^3/uL (1.8-7.7) Lymphocytes # (Auto) 0.7 x10^3/uL (1.0-4.8) Monocytes # (Auto) 1.5 x10^3/uL (0.0-1.1) Eosinophils # (Auto) 0.0 x10^3/uL (0.0-0.7) Basophils # (Auto) 0.0 x10^3/uL (0.0-0.2) Sodium Level 146 mmol/L (136-145) Potassium Level 4.0 mmol/L (3.5-5.1) Chloride Level 115 mmol/L (98-107) Carbon Dioxide Level 21 mmol/L (21-32) Anion Gap 10 (6-14) Blood Urea Nitrogen 61 mg/dL (8-26) Creatinine 1.4 mg/dL (0.7-1.3) Estimated GFR (Cockcroft-Gault) 48.2 BUN/Creatinine Ratio 44 (6-20) Glucose Level 144 mg/dL (70-99) Calcium Level 7.8 mg/dL (8.5-10.1) Total Bilirubin 1.5 mg/dL (0.2-1.0) Aspartate Amino Transf (AST/SGOT) 133 U/L (15-37) Alanine Aminotransferase (ALT/SGPT) 100 U/L (16-63) Alkaline Phosphatase 178 U/L (46-116) Creatine Kinase 36 U/L (39-308) Total Protein 5.1 g/dL (6.4-8.2) Albumin 1.0 g/dL (3.4-5.0) Albumin/Globulin Ratio 0.2 (1.0-1.7) O2 Saturation 98 % (92-99) Arterial Blood pH 7.46 (7.35-7.45) Arterial Blood pH (Temp corrected) 7.45 Arterial Blood pCO2 at Patient Temp 27 mmHg (35-46) Arterial Blood pCO2 (Temp correct) 28 mmHg Arterial Blood pO2 at Patient Temp 112 mmHg (65-108) Arterial Blood pO2 (Temp corrected) 117 mmHg Arterial Blood HCO3 19 mmol/L (21-28) Arterial Blood Base Excess -4 mmol/L (-3-3) FiO2 40 Laboratory Tests Test 07/18/21 18:40 07/19/21 06:00 07/19/21 08:00 Urine Collection Type Unknown Urine Color (Auto) Yellow Urine Turbidity Clear Urine pH (Auto) 5.5 (<5.0-8.0) Urine Specific [place] 1.026 (1.000-1.030) Urine Protein (Auto) 50 mg/dL (Negative) Urine Glucose (Auto)(UA) Negative mg/dL (Negative) Urine Ketones (Auto) Negative mg/dL (Negative) Urine Blood (Auto) Small (Negative) Urine Nitrite Negative (Negative) Urine Bilirubin (Auto) Negative (Negative) Urine Urobilinogen (Auto) Normal mg/dL (Normal) Urine Leukocyte Esterase (Auto) Negative (Negative) Urine RBC 1-2 /HPF (0-2) Urine WBC 0 /HPF (0-4) Urine Bacteria 0 /HPF (0-FEW) Urine Hyaline Casts Few /HPF Urine Mucus Slight /LPF White Blood Count 19.6 x10^3/uL (4.0-11.0) Red Blood Count 3.93 x10^6/uL (4.30-5.70) Hemoglobin 11.3 g/dL (13.0-17.5) Hematocrit 33.7 % (39.0-53.0) Mean Corpuscular Volume 86 fL (79-100) Mean Corpuscular Hemoglobin 29 pg (25-35) Mean Corpuscular Hemoglobin Concent 34 g/dL (31-37) Red Cell Distribution Width 15.8 % (11.5-14.5) Platelet Count 381 x10^3/uL (140-400) Neutrophils (%) (Auto) 89 % (31-73) Lymphocytes (%) (Auto) 4 % (24-48) Monocytes (%) (Auto) 8 % (0-9) Eosinophils (%) (Auto) 0 % (0-3) Basophils (%) (Auto) 0 % (0-3) Neutrophils # (Auto) 17.4 x10^3/uL (1.8-7.7) Lymphocytes # (Auto) 0.7 x10^3/uL (1.0-4.8) Monocytes # (Auto) 1.5 x10^3/uL (0.0-1.1) Eosinophils # (Auto) 0.0 x10^3/uL (0.0-0.7) Basophils # (Auto) 0.0 x10^3/uL (0.0-0.2) Sodium Level 146 mmol/L (136-145) Potassium Level 4.0 mmol/L (3.5-5.1) Chloride Level 115 mmol/L (98-107) Carbon Dioxide Level 21 mmol/L (21-32) Anion Gap 10 (6-14) Blood Urea Nitrogen 61 mg/dL (8-26) Creatinine 1.4 mg/dL (0.7-1.3) Estimated GFR (Cockcroft-Gault) 48.2 BUN/Creatinine Ratio 44 (6-20) Glucose Level 144 mg/dL (70-99) Calcium Level 7.8 mg/dL (8.5-10.1) Total Bilirubin 1.5 mg/dL (0.2-1.0) Aspartate Amino Transf (AST/SGOT) 133 U/L (15-37) Alanine Aminotransferase (ALT/SGPT) 100 U/L (16-63) Alkaline Phosphatase 178 U/L (46-116) Creatine Kinase 36 U/L (39-308) Total Protein 5.1 g/dL (6.4-8.2) Albumin 1.0 g/dL (3.4-5.0) Albumin/Globulin Ratio 0.2 (1.0-1.7) O2 Saturation 98 % (92-99) Arterial Blood pH 7.46 (7.35-7.45) Arterial Blood pH (Temp corrected) 7.45 Arterial Blood pCO2 at Patient Temp 27 mmHg (35-46) Arterial Blood pCO2 (Temp correct) 28 mmHg Arterial Blood pO2 at Patient Temp 112 mmHg (65-108) Arterial Blood pO2 (Temp corrected) 117 mmHg Arterial Blood HCO3 19 mmol/L (21-28) Arterial Blood Base Excess -4 mmol/L (-3-3) FiO2 40 Medications Active Scripts Medications Dose Route/Sig Max Daily Dose Days Date Category [Pantoprazole] 40 MG Tablet.dr 40 Mg PO BIDBFRMEAL 06/22/17 Rx Carafate (Sucralfate) 1 Gm/10 Ml Oral.susp 1 Gm PO TIDBFRMEAL 06/22/17 Rx Avalide 150-12.5 Mg Tablet (Irbesartan/Hydrochlorothiazide) 1 Each Tablet 1 Each PO DAILY 06/19/17 Reported Comments Chest x-ray reviewed 07/17/2021. Mild progression of interstitial infiltrates and pleural effusion consistent with CHF. There is a skinfold on the left apex unlikely pneumothorax. Impression . Acute respiratory failure multifactorial status post exploratory laparotomy for perforated viscus Septic shock. Resolved. Off Levophed. Persistent fevers. Needs to rule out any pockets of abscess in the abdomen and and pelvis. Antibiotics broadened by infectious disease. Acute renal failure. Increasing azotemia. History of prostate cancer Severe protein malnutrition present upon admission. 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 Abnormal chest x-ray with mild progression of congestive heart failure Persistent encephalopathy, likely post sedation induced. Could be hepatic encephalopathy as well as sepsis contributing as well Cannot exclude the possibly of metastatic melanoma to the brain. Persistent fevers. Sources as discussed above. Abnormal liver function test. \ Plan . Continue present assist-control mode. Oxygen requirement is stable. fentanyl , use as needed. Patient still not awake for a weaning trial. Patient continues to remain unresponsive. Will obtain CT head to rule out metastatic melanoma to the brain. Patient continues to have fevers. Will obtain CT abdomen pelvis, and CT chest to rule out sources of infection. Continue as needed Lasix. off Levophed. Keep mean arterial pressure above 60. Empiric antibiotics Follow-up on cultures. No new cultures. Final pathology from the bowel surgery consistent with metastatic melanoma. Oncology consulted. Discussed with son in detail at the bedside 07/18/2021.. Advance directives discussed as well. Patient's son wants to continue with aggressive care. He also wants to pursue tracheostomy if patient fails to come off the ventilator. Discussed with RN and RT. Critical care time 30 minutes. YASMIN WEAVER MD July 19, 2021 09:05
[2021-07-19] MEDS: TPN PER PHARMACY MC PRN (11:33)
--- NOTE | 2021-07-19 11:41 | NUR ---
Pharmacy TPN Dosing Note S: AZEB COOMBS is a 85 year old M Currently receiving Central Continuous TPN started 07/15/21 B:Pertinent PMH: NPO SINCE 07/12, PERFERATED BOWEL Height: 6 feet, 2.9 inches Weight: 76.1 kg Current diet: NPO LABS: Sodium: 146 Potassium: 4.0 Chloride: 115 Calcium: 7.8 Corrected Calcium: 10.04 Magnesium: 2.3 CO2: 21 SCr: 1.4 Glucose: 144 Albumin: 1.2 AST: 133 ALT: 178 TPN FORMULA: TPN TYPE: Central Continuous AMINO ACIDS: 75 gm DEXTROSE: 155 gm LIPIDS: 20 gm SODIUM CHLORIDE: 40 mEq SODIUM ACETATE: -- mEq SODIUM PHOSPHATE: -- mmol POTASSIUM CHLORIDE: -- mEq POTASSIUM ACETATE: 50 mEq POTASSIUM PHOSPHATE: 22 mmol MAGNESIUM: 8 mEq CALCIUM: -- mEq INSULIN: -- units MULTIPLE VITAMIN: 10 ml TRACE ELEMENTS: 1 mL ml(s) TPN PLAN: DECREASE NA TO 40 MEQ IN TPN R: Continue TPN AT 70 ML/HR Will monitor electrolytes, glucose, and tolerance to TPN. FELICE BALDERAS [facility], 07/19/21 1148
--- NOTE | 2021-07-19 11:54 | PDOC ---
DATE OF SERVICE DATE: 07/19/21 TIME: 11:52 SUBJECTIVE ROS Intubated, on vent. No change OBJECTIVE Vital Signs Vital Signs Date Time Temp Pulse Resp B/P (MAP) Pulse Ox O2 Delivery O2 Flow Rate FiO2 07/19/21 11:32 Mechanical Ventilator 07/19/21 11:00 108 34 103/60 91 07/19/21 08:00 100.3 100.3 I & 0 Intake and Output 07/19/21 07:00 Intake Total 883 ml Output Total 1375 ml Balance -492 ml IV Total 883 ml Output Urine Total 1275 ml Drainage Total 100 ml PHYSICAL EXAM Physical Exam GENERAL: orally intubated HEENT: Both pupils are round and reacting. orally intubated. NECK: Supple, no JVP, LUNGS: Clear. Decreased breath sounds. HEART: S1, S2 regular. No gallop or murmur. ABDOMEN: Multiple tubes in the post-surgical dressing EXTREMITIES: No edema, cyanosis. SKIN: Unremarkable. NEUROLOGIC: sedated and intubated. [place]o + DIAGNOSIS/ASSESSMENT Assessment & Plan SHELDON-- ATN/ Hypotensive/Bowel perf . UA unremarkable , CT scan No e/o BALLARD/Hydronephrosis , Renal function stable E-Lytes stable . Supportive care,maintain fluid balance, avoid Nephrotoxins SHELDON in 2018, resolved. No Interval labs available HyperNatremia- mild- Needs free water, adjust Na in TPN Persistent encephalopathyCould be hepatic encephalopathy as well as sepsis contributing as well Cannot exclude the possibly of metastatic melanoma to the brain. Renal Calculus 5 mm nonobstructing calculus is seen involving the lower pole of the right kidney. Perforated viscus, status post exploratory laparotomy, reduction of gastric volvulus, hiatal hernia repair, gastrostomy tube placement and duodenoscopy with tube placement done. 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 CT chest/Abdomen pending Acute Respiratory failure, requiring ventilatory support. History of prostate cancer. HypoPhos- replace/ Adjust in TPN Nutrition- On TPN COMMENT/RELEVANT DATA Meds Current Medications Medications (Trade) Dose Ordered Sig/Armin Start Time Stop Time Status Last Admin Dose Admin Albumin Human 500 ml @ 125 mls/hr 1X ONCE 07/12/21 12:45 07/12/21 16:44 DC Cefoxitin Sodium (Mefoxin) 1 gm Q6H 07/12/21 14:00 07/13/21 02:01 DC 07/13/21 01:47 1 GM Ceftriaxone Sodium (Rocephin) 2 gm Q24H 07/12/21 07:00 07/13/21 09:46 DC 07/13/21 06:30 2 GM Daptomycin 450 mg/ Sodium Chloride 50 ml @ 100 mls/hr Q24H 07/18/21 20:00 07/18/21 20:15 100 MLS/HR Dexamethasone Sodium Phosphate (Decadron) 4 mg STK-MED ONCE 07/12/21 07:43 07/12/21 07:44 DC Digoxin (Lanoxin) 500 mcg 1X ONCE 07/14/21 04:30 07/14/21 04:31 DC 07/14/21 04:40 500 MCG Enoxaparin Sodium (Lovenox 30mg Syringe) 30 mg Q24H 07/12/21 21:00 07/16/21 09:07 DC 07/15/21 21:04 30 MG Enoxaparin Sodium (Lovenox 40mg Syringe) 40 mg Q24H 07/16/21 21:00 07/18/21 21:38 40 MG Ephedrine Sulfate (ePHEDrine PF IN SALINE SYRINGE) 50 mg STK-MED ONCE 07/12/21 10:27 07/12/21 10:27 DC Etomidate (Amidate) 20 mg STK-MED ONCE 07/12/21 08:30 07/12/21 08:30 DC Famotidine (Pepcid Vial) 20 mg QHS 07/12/21 21:00 07/18/21 21:38 20 MG Fentanyl Citrate (Fentanyl 2ml Vial) 25 mcg PRN Q1HR PRN 07/16/21 19:30 07/17/21 20:21 25 MCG Furosemide (Lasix) 40 mg 1X ONCE 07/17/21 11:45 07/17/21 11:46 DC 07/17/21 12:28 40 MG Glycerin/ Hypromellose/ Polyethylene (Artificial Tears) 1 drop PRN Q1HR PRN 07/12/21 12:45 Glycopyrrolate (Robinul) 1 mg STK-MED ONCE 07/12/21 07:45 07/12/21 07:45 DC Hydromorphone HCl (Dilaudid) 0.5 mg PRN Q10MIN PRN 07/12/21 08:00 07/13/21 07:59 DC Info (Tpn Per Pharmacy) 1 each PRN DAILY PRN 07/15/21 10:30 07/19/21 11:33 1 EACH Labetalol HCl (Normodyne Iv Push) 10 mg PRN Q4HRS PRN 07/17/21 09:15 Magnesium Sulfate 50 ml @ 25 mls/hr 1X ONCE 07/14/21 12:30 07/14/21 14:29 DC 07/14/21 15:22 25 MLS/HR Meropenem 500 mg/ Sodium Chloride 50 ml @ 100 mls/hr Q8HRS 07/18/21 22:00 07/19/21 06:04 100 MLS/HR Metronidazole 100 ml @ 100 mls/hr Q8HRS 07/12/21 14:00 07/13/21 09:46 DC 07/13/21 06:15 100 MLS/HR Midazolam HCl 100 ml @ 1 mls/hr CONT PRN 07/12/21 12:45 07/16/21 19:27 DC 07/12/21 16:55 1 MLS/HR Midazolam HCl (Versed) 2 mg STK-MED ONCE 07/12/21 07:44 07/12/21 07:44 DC Morphine Sulfate (Morphine Sulfate) 1 mg PRN Q1HR PRN 07/12/21 12:15 07/12/21 13:51 DC Naloxone HCl (Narcan) 0.4 mg PRN Q2MIN PRN 07/12/21 12:15 Neostigmine [place] (Neostigmine Methylsulfate) 5 mg STK-MED ONCE 07/12/21 07:44 07/12/21 07:44 DC Norepinephrine Bitartrate 32 mg/ Dextrose 250 ml @ 3.192 mls/ hr CONT PRN 07/15/21 03:30 07/15/21 04:15 15.961 MLS/HR Norepinephrine Bitartrate 8 mg/ Dextrose 258 ml @ 11.204 mls/ hr CONT PRN 07/12/21 13:45 07/15/21 03:14 DC 07/14/21 23:22 56.018 MLS/HR Ondansetron HCl (Zofran) 4 mg PRN Q6HRS PRN 07/12/21 12:15 Phenylephrine HCl (Lionel-Synephrine Inj) 10 mg STK-MED ONCE 07/12/21 11:54 07/12/21 11:55 DC Phenylephrine HCl (PHENYLEPHRINE in 0.9% NACL PF) 1 mg STK-MED ONCE 07/12/21 10:27 07/12/21 10:27 DC Piperacillin Sod/ Tazobactam Sod 2.25 gm/Sodium Chloride 50 ml @ 100 mls/hr Q6HRS 07/13/21 12:00 07/18/21 18:02 DC 07/18/21 17:10 100 MLS/HR Potassium Phosphate 15 mmol/ Sodium Chloride 105 ml @ 52.5 mls/hr 1X ONCE 07/17/21 12:00 07/17/21 13:59 DC 07/17/21 12:32 52.5 MLS/HR Prochlorperazine Edisylate (Compazine) 5 mg PACU PRN PRN 07/12/21 08:00 07/13/21 07:59 DC Propofol (Diprivan) 1,000 mg STK-MED ONCE 07/12/21 13:00 07/13/21 12:22 DC Ringer's Solution 1,000 ml @ 100 mls/hr Q10H 07/12/21 12:15 07/13/21 19:33 DC 07/13/21 10:39 100 MLS/HR Rocuronium [place] (Zemuron) 100 mg STK-MED ONCE 07/12/21 09:34 07/12/21 09:34 DC Sevoflurane (Ultane) 60 ml STK-MED ONCE 07/12/21 21:15 07/12/21 21:15 DC Sodium Bicarbonate 150 meq/Dextrose 1,150 ml @ 75 mls/hr [id number] 07/12/21 14:30 07/13/21 19:34 DC 07/13/21 05:37 75 MLS/HR Sodium Acetate 70 meq/Potassium Chloride 50 meq/ Potassium Phosphate 22 mmol/ Magnesium Sulfate 8 meq/ Multivitamins 10 ml/Zinc/Copper/ Manganese/ Selenium 1 ml/ Total Parenteral Nutrition/Amino Acids/Dextrose/ Fat Emulsion Intravenous 1,512 ml @ 63 mls/hr TPN CONT 07/18/21 22:00 07/19/21 21:59 07/18/21 21:44 63 MLS/HR Sodium Bicarbonate (Sodium Bicarb Adult 8.4% Syr) 50 meq STK-MED ONCE 07/12/21 21:15 07/12/21 21:15 DC Sodium Chloride (Normal Saline Flush) 3 ml QSHIFT PRN 07/12/21 12:15 Sodium Chloride 40 meq/Potassium Acetate 50 meq/ Potassium Phosphate 22 mmol/ Magnesium Sulfate 8 meq/ Multivitamins 10 ml/Zinc/Copper/ Manganese/ Selenium 1 ml/ Total Parenteral Nutrition/Amino Acids/Dextrose/ Fat Emulsion Intravenous 1,680 ml @ 70 mls/hr TPN CONT 07/19/21 22:00 07/20/21 21:59 Sodium Chloride 70 meq/Potassium Chloride 50 meq/ Potassium Phosphate 20 mmol/ Magnesium Sulfate 10 meq/ Multivitamins 10 ml/Zinc/Copper/ Manganese/ Selenium 1 ml/ Total Parenteral Nutrition/Amino Acids/Dextrose/ Fat Emulsion Intravenous 1,512 ml @ 63 mls/hr TPN CONT 07/16/21 22:00 07/17/21 21:59 DC 07/16/21 21:38 63 MLS/HR Sodium Chloride 70 meq/Potassium Chloride 50 meq/ Potassium Phosphate 25 mmol/ Magnesium Sulfate 10 meq/ Multivitamins 10 ml/Zinc/Copper/ Manganese/ Selenium 1 ml/ Total Parenteral Nutrition/Amino Acids/Dextrose/ Fat Emulsion Intravenous 1,512 ml @ 63 mls/hr TPN CONT 07/17/21 22:00 07/18/21 21:59 DC 07/17/21 20:22 63 MLS/HR Sodium Chloride 90 meq/Potassium Chloride 50 meq/ Potassium Phosphate 13.6 mmol/Magnesium Sulfate 10 meq/ Multivitamins 10 ml/Zinc/Copper/ Manganese/ Selenium 1 ml/ Total Parenteral Nutrition/Amino Acids/Dextrose/ Fat Emulsion Intravenous 1,512 ml @ 63 mls/hr TPN CONT 07/15/21 22:00 07/16/21 21:59 DC 07/15/21 22:05 63 MLS/HR Succinylcholine Chloride (Anectine) 200 mg STK-MED ONCE 07/12/21 07:44 07/12/21 07:44 DC Lab Laboratory Tests Test 07/18/21 18:40 07/19/21 06:00 07/19/21 08:00 Urine Collection Type Unknown Urine Color (Auto) Yellow Urine Turbidity Clear Urine pH (Auto) 5.5 (<5.0-8.0) Urine Specific [place] 1.026 (1.000-1.030) Urine Protein (Auto) 50 mg/dL (Negative) Urine Glucose (Auto)(UA) Negative mg/dL (Negative) Urine Ketones (Auto) Negative mg/dL (Negative) Urine Blood (Auto) Small (Negative) Urine Nitrite Negative (Negative) Urine Bilirubin (Auto) Negative (Negative) Urine Urobilinogen (Auto) Normal mg/dL (Normal) Urine Leukocyte Esterase (Auto) Negative (Negative) Urine RBC 1-2 /HPF (0-2) Urine WBC 0 /HPF (0-4) Urine Bacteria 0 /HPF (0-FEW) Urine Hyaline Casts Few /HPF Urine Mucus Slight /LPF White Blood Count 19.6 x10^3/uL (4.0-11.0) Red Blood Count 3.93 x10^6/uL (4.30-5.70) Hemoglobin 11.3 g/dL (13.0-17.5) Hematocrit 33.7 % (39.0-53.0) Mean Corpuscular Volume 86 fL (79-100) Mean Corpuscular Hemoglobin 29 pg (25-35) Mean Corpuscular Hemoglobin Concent 34 g/dL (31-37) Red Cell Distribution Width 15.8 % (11.5-14.5) Platelet Count 381 x10^3/uL (140-400) Neutrophils (%) (Auto) 89 % (31-73) Lymphocytes (%) (Auto) 4 % (24-48) Monocytes (%) (Auto) 8 % (0-9) Eosinophils (%) (Auto) 0 % (0-3) Basophils (%) (Auto) 0 % (0-3) Neutrophils # (Auto) 17.4 x10^3/uL (1.8-7.7) Lymphocytes # (Auto) 0.7 x10^3/uL (1.0-4.8) Monocytes # (Auto) 1.5 x10^3/uL (0.0-1.1) Eosinophils # (Auto) 0.0 x10^3/uL (0.0-0.7) Basophils # (Auto) 0.0 x10^3/uL (0.0-0.2) Sodium Level 146 mmol/L (136-145) Potassium Level 4.0 mmol/L (3.5-5.1) Chloride Level 115 mmol/L (98-107) Carbon Dioxide Level 21 mmol/L (21-32) Anion Gap 10 (6-14) Blood Urea Nitrogen 61 mg/dL (8-26) Creatinine 1.4 mg/dL (0.7-1.3) Estimated GFR (Cockcroft-Gault) 48.2 BUN/Creatinine Ratio 44 (6-20) Glucose Level 144 mg/dL (70-99) Calcium Level 7.8 mg/dL (8.5-10.1) Total Bilirubin 1.5 mg/dL (0.2-1.0) Aspartate Amino Transf (AST/SGOT) 133 U/L (15-37) Alanine Aminotransferase (ALT/SGPT) 100 U/L (16-63) Alkaline Phosphatase 178 U/L (46-116) Creatine Kinase 36 U/L (39-308) Total Protein 5.1 g/dL (6.4-8.2) Albumin 1.0 g/dL (3.4-5.0) Albumin/Globulin Ratio 0.2 (1.0-1.7) O2 Saturation 98 % (92-99) Arterial Blood pH 7.46 (7.35-7.45) Arterial Blood pH (Temp corrected) 7.45 Arterial Blood pCO2 at Patient Temp 27 mmHg (35-46) Arterial Blood pCO2 (Temp correct) 28 mmHg Arterial Blood pO2 at Patient Temp 112 mmHg (65-108) Arterial Blood pO2 (Temp corrected) 117 mmHg Arterial Blood HCO3 19 mmol/L (21-28) Arterial Blood Base Excess -4 mmol/L (-3-3) FiO2 40 Results All relevant outside records, renal labs, imaging studies, telemetry/EKG's were reviewed. Justicifation of Admission Dx: Justifications for Admission: Justification of Admission Dx: Yes Sepsis: Hemodynamic Instability JENNIE MOODY MD July 19, 2021 11:54
--- NOTE | 2021-07-19 12:25 | PDOC ---
Infectious Disease Note Subjective: Subjective Pt is intubated on vent Afebrile last 24 hours Had thick sputum Vital Signs: Vital Signs Vital Signs Date Time Temp Pulse Resp B/P (MAP) Pulse Ox O2 Delivery O2 Flow Rate FiO2 07/19/21 12:00 99.3 92 32 116/59 94 Ventilator 99.3 Physical Exam: PHYSICAL EXAM GENERAL: Sedated, orally intubated [facility] in [facility] HEENT: Both pupils are round and reacting. No conjunctival lesion. No lesion in the mouth. Mouth cannot be visualized much as orally intubated. LUNGS: . Decreased breath sounds. HEART: S1, S2 regular. No murmur. ABDOMEN: Multiple tubes in the post-surgical dressing not opened. EXTREMITIES: No edema, cyanosis. SKIN: No generalized rash NEUROLOGIC: Unable to assess Medications: Inpatient Meds: Medications reviewed. Labs: Lab Laboratory Tests Test 07/18/21 18:40 07/19/21 06:00 07/19/21 08:00 Urine Collection Type Unknown Urine Color (Auto) Yellow Urine Turbidity Clear Urine pH (Auto) 5.5 (<5.0-8.0) Urine Specific [place] 1.026 (1.000-1.030) Urine Protein (Auto) 50 mg/dL (Negative) Urine Glucose (Auto)(UA) Negative mg/dL (Negative) Urine Ketones (Auto) Negative mg/dL (Negative) Urine Blood (Auto) Small (Negative) Urine Nitrite Negative (Negative) Urine Bilirubin (Auto) Negative (Negative) Urine Urobilinogen (Auto) Normal mg/dL (Normal) Urine Leukocyte Esterase (Auto) Negative (Negative) Urine RBC 1-2 /HPF (0-2) Urine WBC 0 /HPF (0-4) Urine Bacteria 0 /HPF (0-FEW) Urine Hyaline Casts Few /HPF Urine Mucus Slight /LPF White Blood Count 19.6 x10^3/uL (4.0-11.0) Red Blood Count 3.93 x10^6/uL (4.30-5.70) Hemoglobin 11.3 g/dL (13.0-17.5) Hematocrit 33.7 % (39.0-53.0) Mean Corpuscular Volume 86 fL (79-100) Mean Corpuscular Hemoglobin 29 pg (25-35) Mean Corpuscular Hemoglobin Concent 34 g/dL (31-37) Red Cell Distribution Width 15.8 % (11.5-14.5) Platelet Count 381 x10^3/uL (140-400) Neutrophils (%) (Auto) 89 % (31-73) Lymphocytes (%) (Auto) 4 % (24-48) Monocytes (%) (Auto) 8 % (0-9) Eosinophils (%) (Auto) 0 % (0-3) Basophils (%) (Auto) 0 % (0-3) Neutrophils # (Auto) 17.4 x10^3/uL (1.8-7.7) Lymphocytes # (Auto) 0.7 x10^3/uL (1.0-4.8) Monocytes # (Auto) 1.5 x10^3/uL (0.0-1.1) Eosinophils # (Auto) 0.0 x10^3/uL (0.0-0.7) Basophils # (Auto) 0.0 x10^3/uL (0.0-0.2) Sodium Level 146 mmol/L (136-145) Potassium Level 4.0 mmol/L (3.5-5.1) Chloride Level 115 mmol/L (98-107) Carbon Dioxide Level 21 mmol/L (21-32) Anion Gap 10 (6-14) Blood Urea Nitrogen 61 mg/dL (8-26) Creatinine 1.4 mg/dL (0.7-1.3) Estimated GFR (Cockcroft-Gault) 48.2 BUN/Creatinine Ratio 44 (6-20) Glucose Level 144 mg/dL (70-99) Calcium Level 7.8 mg/dL (8.5-10.1) Total Bilirubin 1.5 mg/dL (0.2-1.0) Aspartate Amino Transf (AST/SGOT) 133 U/L (15-37) Alanine Aminotransferase (ALT/SGPT) 100 U/L (16-63) Alkaline Phosphatase 178 U/L (46-116) Creatine Kinase 36 U/L (39-308) Total Protein 5.1 g/dL (6.4-8.2) Albumin 1.0 g/dL (3.4-5.0) Albumin/Globulin Ratio 0.2 (1.0-1.7) O2 Saturation 98 % (92-99) Arterial Blood pH 7.46 (7.35-7.45) Arterial Blood pH (Temp corrected) 7.45 Arterial Blood pCO2 at Patient Temp 27 mmHg (35-46) Arterial Blood pCO2 (Temp correct) 28 mmHg Arterial Blood pO2 at Patient Temp 112 mmHg (65-108) Arterial Blood pO2 (Temp corrected) 117 mmHg Arterial Blood HCO3 19 mmol/L (21-28) Arterial Blood Base Excess -4 mmol/L (-3-3) FiO2 40 Objective: Assessment: IMPRESSION: 1. Perforated viscus, status post exploratory laparotomy, reduction of gastric volvulus, hiatal hernia repair, gastrostomy tube placement and duodenoscopy with tube placement done. 2. Hypotension, requiring vasopressor support. 3. Respiratory failure, requiring ventilatory support. 4. Renal failure. 5. History of prostate cancer. path + with melanoma Plan: Plan of Care Merrem and daptomycin And Zyvox Monitor labs and cultures F/U BC 07/18 cont supportive care Critically ill Prognosis very poor consider palliative care Discussed with MARISOL LAYNE MD July 19, 2021 12:25
--- NOTE | 2021-07-19 13:58 | RAD ---
EXAMINATION: CT chest, abdomen and pelvis without IV contrast. INDICATION:85 years, Male, fever. TECHNIQUE: Axial CT images of the chest, abdomen and pelvis were obtained. Coronal and sagittal refor matted performed. COMPARISON: CT dated 07/11/2021. Exposure: One or more of the following individualized dose reduction techniques were utilized for thi s examination: 1. Automated exposure control 2. Adjustment of the mA and/or kV according to patient size 3. Use of iterative reconstruction technique. FINDINGS: CHEST: Endotracheal tube is in place. Endobronchial debris. Moderate bilateral pleural effusions with associ ated atelectatic changes. Redemonstrated multiple solid bilateral pulmonary nodules. No pneumothorax. Visualized thyroid and esophagus are unremarkable. No lymphadenopathy in the chest by size criteria. No cardiomegaly. Small amount of pericardial effusion. Severe coronary artery atherosclerotic calcifi cations. Normal caliber thoracic aorta. Right central venous line terminates in the proximal SVC. ABDOMEN/PELVIS: Within the limitation of noncontrast exam, Liver is grossly unremarkable. Previously seen hepatic lesions are not appreciated on the current exa m. Similar heterogeneous attenuation of the spleen. Gallbladder hydrops without CT evidence of acute cholecystitis. No biliary ductal dilation. Diffuse atrophic pancreas with fat infiltration. Unchanged adrenal glands. No hydronephrosis. Unchanged 1.6 cm left renal cyst. Interval post surgical changes of hiatal hernia repair; the stomach now seen within the abdomen cavit y. However, there is a diffuse gastric wall thickening which likely reactive. Placement of 2 gastrost louie tubes. Diffuse fat stranding in the upper abdomen, likely postsurgical. Ill-defined loculated flu id collection containing gas seen in the anterior upper abdomen anterior, the pocket in the left side measures 5.8 x 4.7 cm (series 4 image 21). The smaller pocket anterior to the left hepatic lobe ania ures approximately 8.5 x 2.2 cm. No bowel dilation. Moderate aortoiliac atherosclerotic calcifications. Small abdominopelvic ascites w ith diffuse mesenteric edema. Decompressed urinary bladder with Foleys catheter in place. No lymphade nopathy in the abdomen or pelvis by size criteria. Redemonstration of numerous metastatic implants t hroughout the abdomen such as adjacent to the left kidney. MUSCULOSKELETAL STRUCTURES: No acute osseous process or suspicious lesion. Redemonstrated nondisplaced fractures along the jania lateral left sixth and seventh ribs. Diffuse anasarca. Postsurgical changes along the anterior abdomi nal wall. IMPRESSION: 1. Interval post surgical changes of hiatal hernia repair; the stomach is now seen within the abdome n cavity. However, there is a diffuse gastric wall thickening which likely reactive. Correlate for ga stritis. 2. Ill-defined loculated fluid collection containing gas in the anterior upper abdomen anterior to t he left hepatic lobe, measuring up to 8.5 x 2.2 cm. Findings likely relate to postsurgical changes. S uperimposed infection cannot be excluded. Recommend IR consultation for possible drainage. 3. Redemonstration of numerous metastatic disease in the lungs and throughout the abdomen. 4. Moderate bilateral pleural effusions with associated atelectatic changes, new since prior exam. 5. Previously seen hepatic lesions are not appreciated on the current exam. 6. Other chronic/incidental findings, as described above. Electronically signed by: Rafael Cabrera MD (07/19/2021 1:56 PM) [facility]
--- NOTE | 2021-07-19 14:48 | RAD ---
CT scan of the head without contrast 07/19/2021 Clinical History: Encephalopathy. Technique: Unenhanced, contiguous, 5 mm axial sections were obtained through the head. One or more of the following individualized dose reduction techniques were utilized for this study: 1. Automated exposure control. 2. Adjustment of the mA and/or kV according to patient size. 3. Use of iterative reconstruction technique. Findings: There is generalized parenchymal atrophy. Areas of decreased attenuation are seen within t he periventricular and subcortical white matter of both cerebral hemispheres consistent with areas of small vessel ischemic disease. No acute parenchymal abnormality is seen. No extra-axial fluid collec tion is noted. No skull fracture is seen. Mild to moderate mucosal thickening in seen within the sphe noid sinus. Impression: No acute intracranial abnormality is seen. Electronically signed by: Sea Valenzuela MD (07/19/2021 2:45 PM) [id number]
--- NOTE | 2021-07-19 18:28 | PDOC2 ---
CONSULT Date of Consult Date of Consult DATE: 07/19/21 TIME: 18:25 Reason for Consult Reason for Consult: AMS Identification/Chief Complaint Chief Complaint AMS History of Present Illness Reason for Visit: This patient is a 85-year-old man with past medical history of multiple medical problems who was transferred from [facility] patient presented with complaint of abdominal pains, had perforated viscus, patient had exploratory laparotomy, gastrotomy tube placement,, hernia repair surgery, patient is intubated, was treated for hypotension requiring vasopressors, on antibiotics. Past Medical History Cardiovascular: HTN GI: Gastritis, Peptic Ulcer disease Rheumatologic: Rheumatoid arthritis Renal/: Prostate Ca. (suspect metastatic) Past Surgical History Past Surgical History: Hernia Repair Family History Family History: No Significant Social History No ALCOHOL: none Drugs: None Current Medications Current Medications Current Medications Ceftriaxone Sodium (Rocephin) 2 gm Q24H IVP Last administered on 07/13/21at 06:30; Start 07/12/21 at 07:00; Stop 07/13/21 at 09:46; Status DC Metronidazole 100 ml @ 100 mls/hr Q8HRS IV Last administered on 07/13/21at 06:15; Start 07/12/21 at 14:00; Stop 07/13/21 at 09:46; Status DC Morphine Sulfate (Morphine Sulfate) 4 mg PRN Q4HRS PRN IVP SEVERE PAIN 7-10 Last administered on 07/12/21at 06:59; Start 07/12/21 at 06:15; Stop 07/12/21 at 13:52; Status DC Ondansetron HCl (Zofran) 4 mg PRN Q4HRS PRN IVP NAUSEA/VOMITING 1ST CHOICE Last administered on 07/12/21at 07:02; Start 07/12/21 at 06:15; Stop 07/12/21 at 13:03; Status DC Sodium Chloride 1,000 ml @ 150 mls/hr Q6H40M IV Last administered on 07/16/21at 04:36; Start 07/12/21 at 06:15; Stop 07/16/21 at 10:01; Status DC Piperacillin Sod/ Tazobactam Sod 2.25 gm/Sodium Chloride 50 ml @ 100 mls/hr Q8HRS IV Last administered on 07/13/21at 05:37; Start 07/12/21 at 14:00; Stop 07/13/21 at 11:36; Status DC Propofol (Diprivan) 200 mg STK-MED ONCE IV ; Start 07/12/21 at 07:43; Stop 07/12/21 at 07:44; Status DC Ondansetron HCl (Zofran) 4 mg STK-MED ONCE .ROUTE ; Start 07/12/21 at 07:43; Stop 07/12/21 at 07:44; Status DC Dexamethasone Sodium Phosphate (Decadron) 4 mg STK-MED ONCE .ROUTE ; Start 07/12/21 at 07:43; Stop 07/12/21 at 07:44; Status DC Succinylcholine Chloride (Anectine) 200 mg STK-MED ONCE .ROUTE ; Start 07/12/21 at 07:44; Stop 07/12/21 at 07:44; Status DC Neostigmine Satsuma (Neostigmine Methylsulfate) 5 mg STK-MED ONCE .ROUTE ; Start 07/12/21 at 07:44; Stop 07/12/21 at 07:44; Status DC Rocuronium Satsuma (Zemuron) 50 mg STK-MED ONCE .ROUTE ; Start 07/12/21 at 07:44; Stop 07/12/21 at 07:44; Status DC Fentanyl Citrate (Fentanyl 2ml Vial) 100 mcg STK-MED ONCE .ROUTE ; Start 07/12/21 at 07:44; Stop 07/12/21 at 07:44; Status DC Midazolam HCl (Versed) 2 mg STK-MED ONCE .ROUTE ; Start 07/12/21 at 07:44; Stop 07/12/21 at 07:44; Status DC Glycopyrrolate (Robinul) 1 mg STK-MED ONCE .ROUTE ; Start 07/12/21 at 07:45; Stop 07/12/21 at 07:45; Status DC Fentanyl Citrate (Fentanyl 2ml Vial) 25 mcg PRN Q5MIN PRN IVP MILD PAIN 1-3; Start 07/12/21 at 08:00; Stop 07/13/21 at 07:59; Status DC Fentanyl Citrate (Fentanyl 2ml Vial) 50 mcg PRN Q5MIN PRN IVP MODERATE PAIN 4- 6; Start 07/12/21 at 08:00; Stop 07/13/21 at 07:59; Status DC Morphine Sulfate (Morphine Sulfate) 1 mg PRN Q10MIN PRN IVP SEVERE PAIN 7-10; Start 07/12/21 at 08:00; Stop 07/13/21 at 07:59; Status DC Ringer's Solution 1,000 ml @ 30 mls/hr Q24H IV ; Start 07/12/21 at 08:00; Stop 07/12/21 at 19:59; Status DC Hydromorphone HCl (Dilaudid) 0.5 mg PRN Q10MIN PRN IVP SEVERE PAIN 7-10, 2nd CHOICE; Start 07/12/21 at 08:00; Stop 07/13/21 at 07:59; Status DC Prochlorperazine Edisylate (Compazine) 5 mg PACU PRN PRN IVP NAUSEA, MRX1; Start 07/12/21 at 08:00; Stop 07/13/21 at 07:59; Status DC Albumin Human 500 ml @ 125 mls/hr 1X ONCE IV Last administered on 07/12/21at 08:17; Start 07/12/21 at 08:15; Stop 07/12/21 at 12:14; Status DC Etomidate (Amidate) 20 mg STK-MED ONCE IV ; Start 07/12/21 at 08:30; Stop 07/12/21 at 08:30; Status DC Rocuronium Satsuma (Zemuron) 100 mg STK-MED ONCE .ROUTE ; Start 07/12/21 at 09:34; Stop 07/12/21 at 09:34; Status DC Phenylephrine HCl (PHENYLEPHRINE in 0.9% NACL PF) 1 mg STK-MED ONCE IV ; Start 07/12/21 at 10:27; Stop 07/12/21 at 10:27; Status DC Phenylephrine HCl (Lionel-Synephrine Inj) 10 mg STK-MED ONCE .ROUTE ; Start 07/12/21 at 10:27; Stop 07/12/21 at 10:27; Status DC Ephedrine Sulfate (ePHEDrine PF IN SALINE SYRINGE) 50 mg STK-MED ONCE IV ; Start 07/12/21 at 10:27; Stop 07/12/21 at 10:27; Status DC Albumin Human 500 ml @ As Directed STK-MED ONCE IV ; Start 07/12/21 at 11:15; Stop 07/12/21 at 11:16; Status DC Albumin Human 500 ml @ 500 mls/hr 1X ONCE IV Last administered on 07/12/21at 13:40; Start 07/12/21 at 11:30; Stop 07/12/21 at 12:29; Status DC Phenylephrine HCl (Lionel-Synephrine Inj) 10 mg STK-MED ONCE .ROUTE ; Start 07/12/21 at 11:54; Stop 07/12/21 at 11:55; Status DC Cefoxitin Sodium (Mefoxin) 1 gm Q6H IVP Last administered on 07/13/21at 01:47; Start 07/12/21 at 14:00; Stop 07/13/21 at 02:01; Status DC Famotidine (Pepcid Vial) 20 mg QHS IVP Last administered on 07/18/21at 21:38; Start 07/12/21 at 21:00 Enoxaparin Sodium (Lovenox 30mg Syringe) 30 mg Q24H SQ Last administered on 07/15/21at 21:04; Start 07/12/21 at 21:00; Stop 07/16/21 at 09:07; Status DC Sodium Chloride (Normal Saline Flush) 3 ml QSHIFT PRN IV AFTER MEDS AND BLOOD DRAWS; Start 07/12/21 at 12:15 Ringer's Solution 1,000 ml @ 100 mls/hr Q10H IV Last administered on 07/13/21at 10:39; Start 07/12/21 at 12:15; Stop 07/13/21 at 19:33; Status DC Naloxone HCl (Narcan) 0.4 mg PRN Q2MIN PRN IV SEE INSTRUCTIONS; Start 07/12/21 at 12:15 Sodium Chloride 1,000 ml @ 25 mls/hr Q24H IV ; Start 07/12/21 at 12:15; Stop 07/13/21 at 19:33; Status DC Morphine Sulfate (Morphine Sulfate) 1 mg PRN Q1HR PRN IV MODERATE PAIN; Start 07/12/21 at 12:15; Stop 07/12/21 at 13:51; Status DC Ondansetron HCl (Zofran) 4 mg PRN Q6HRS PRN IVP NAUESA, 1ST CHOICE; Start 07/12/21 at 12:15 Midazolam HCl 100 ml @ 1 mls/hr CONT PRN IV SEE PROTOCOL Last administered on 07/12/21at 16:55; Start 07/12/21 at 12:45; Stop 07/16/21 at 19:27; Status DC Propofol 100 ml @ 1.74 mls/hr CONT PRN IV PER PROTOCOL; Start 07/12/21 at 12:45; Stop 07/16/21 at 19:27; Status DC Glycerin/ Hypromellose/ Polyethylene (Artificial Tears) 1 drop PRN Q1HR PRN OU DRY EYE; Start 07/12/21 at 12:45 Albumin Human 500 ml @ 125 mls/hr 1X ONCE IV ; Start 07/12/21 at 12:45; Stop 07/12/21 at 16:44; Status DC Fentanyl Citrate 30 ml @ 0 mls/hr CONT PRN IV SEE PROTOCOL Last administered on 07/12/21at 23:40; Start 07/12/21 at 13:15; Stop 07/13/21 at 10:16; Status DC Sodium Bicarbonate (Sodium Bicarb Adult 8.4% Syr) 50 meq STK-MED ONCE .ROUTE ; Start 07/12/21 at 13:28; Stop 07/12/21 at 13:28; Status DC Sodium Bicarbonate (Sodium Bicarb Adult 8.4% Syr) 50 meq 1X ONCE IV Last administered on 07/12/21at 13:40; Start 07/12/21 at 13:45; Stop 07/12/21 at 13:46; Status DC Sodium Bicarbonate 150 meq/Dextrose 1,150 ml @ 75 mls/hr [id number] IV Last administered on 07/13/21at 05:37; Start 07/12/21 at 14:30; Stop 07/13/21 at 19:34; Status DC Norepinephrine Bitartrate 8 mg/ Dextrose 258 ml @ 11.204 mls/ hr CONT PRN IV PER PROTOCOL Last administered on 07/14/21at 23:22; Start 07/12/21 at 13:45; Stop 07/15/21 at 03:14; Status DC Fentanyl Citrate (Fentanyl 2ml Vial) 50 mcg 1X ONCE IVP ; Start 07/12/21 at 14:15; Stop 07/12/21 at 14:16; Status DC Sodium Bicarbonate (Sodium Bicarb Adult 8.4% Syr) 50 meq STK-MED ONCE .ROUTE ; Start 07/12/21 at 21:15; Stop 07/12/21 at 21:15; Status DC Sevoflurane (Ultane) 60 ml STK-MED ONCE IH ; Start 07/12/21 at 21:15; Stop 07/12/21 at 21:15; Status DC Digoxin (Lanoxin) 500 mcg 1X ONCE IV Last administered on 07/13/21at 03:22; Start 07/13/21 at 03:30; Stop 07/13/21 at 03:31; Status DC Fentanyl Citrate 55 ml @ 1 mls/hr CONT PRN IV SEE PROTOCOL Last administered on 07/15/21at 06:00; Start 07/13/21 at 10:30; Stop 07/16/21 at 19:27; Status DC Piperacillin Sod/ Tazobactam Sod 2.25 gm/Sodium Chloride 50 ml @ 100 mls/hr Q6HRS IV Last administered on 07/18/21at 17:10; Start 07/13/21 at 12:00; Stop 07/18/21 at 18:02; Status DC Propofol (Diprivan) 1,000 mg STK-MED ONCE IV ; Start 07/12/21 at 13:00; Stop 07/13/21 at 12:22; Status DC Digoxin (Lanoxin) 500 mcg 1X ONCE IV Last administered on 07/14/21at 04:40; Start 07/14/21 at 04:30; Stop 07/14/21 at 04:31; Status DC Magnesium Sulfate 50 ml @ 25 mls/hr 1X ONCE IV Last administered on 07/14/21at 15:22; Start 07/14/21 at 12:30; Stop 07/14/21 at 14:29; Status DC Sodium Chloride 1,000 ml @ 1,000 mls/hr 1X ONCE IV Last administered on 07/14/21at 12:15; Start 07/14/21 at 12:30; Stop 07/14/21 at 13:29; Status DC Sodium Chloride 1,000 ml @ 1,000 mls/hr 1X ONCE IV Last administered on 07/14/21at 15:42; Start 07/14/21 at 15:30; Stop 07/14/21 at 16:29; Status DC Sodium Chloride 500 ml @ 500 mls/hr 1X ONCE IV Last administered on 07/14/21at 12:15; Start 07/14/21 at 15:30; Stop 07/14/21 at 16:29; Status DC Norepinephrine Bitartrate 32 mg/ Dextrose 250 ml @ 3.192 mls/ hr CONT PRN IV SEE I/O RECORD Last administered on 07/15/21at 04:15; Start 07/15/21 at 03:30 Furosemide (Lasix) 20 mg 1X ONCE IVP Last administered on 07/15/21at 18:29; Start 07/15/21 at 10:00; Stop 07/15/21 at 10:01; Status DC Info (Tpn Per Pharmacy) 1 each PRN DAILY PRN MC SEE COMMENTS Last administered on 07/19/21at 11:33; Start 07/15/21 at 10:30 Sodium Chloride 90 meq/Potassium Chloride 50 meq/ Potassium Phosphate 13.6 mmol/Magnesium Sulfate 10 meq/ Multivitamins 10 ml/Zinc/Copper/ Manganese/ Selenium 1 ml/ Total Parenteral Nutrition/Amino Acids/Dextrose/ Fat Emulsion Intravenous 1,512 ml @ 63 mls/hr TPN CONT IV Last administered on 07/15/21at 22:05; Start 07/15/21 at 22:00; Stop 07/16/21 at 21:59; Status DC Furosemide (Lasix) 20 mg 1X ONCE IVP ; Start 07/15/21 at 18:30; Stop 07/15/21 at 18:31; Status DC Enoxaparin Sodium (Lovenox 40mg Syringe) 40 mg Q24H SQ Last administered on 07/18/21at 21:38; Start 07/16/21 at 21:00 Sodium Chloride 70 meq/Potassium Chloride 50 meq/ Potassium Phosphate 20 mmol/ Magnesium Sulfate 10 meq/ Multivitamins 10 ml/Zinc/Copper/ Manganese/ Selenium 1 ml/ Total Parenteral Nutrition/Amino Acids/Dextrose/ Fat Emulsion Intravenous 1,512 ml @ 63 mls/hr TPN CONT IV ; Start 07/16/21 at 22:00; Stop 07/16/21 at 13:33; Status DC Sodium Chloride 70 meq/Potassium Chloride 50 meq/ Potassium Phosphate 20 mmol/ Magnesium Sulfate 10 meq/ Multivitamins 10 ml/Zinc/Copper/ Manganese/ Selenium 1 ml/ Total Parenteral Nutrition/Amino Acids/Dextrose/ Fat Emulsion Intravenous 1,482 ml @ 61.75 mls/ hr TPN CONT IV ; Start 07/16/21 at 22:00; Stop 07/16/21 at 14:03; Status DC Sodium Chloride 70 meq/Potassium Chloride 50 meq/ Potassium Phosphate 20 mmol/ Magnesium Sulfate 10 meq/ Multivitamins 10 ml/Zinc/Copper/ Manganese/ Selenium 1 ml/ Total Parenteral Nutrition/Amino Acids/Dextrose/ Fat Emulsion Intravenous 1,512 ml @ 63 mls/hr TPN CONT IV Last administered on 07/16/21at 21:38; Start 07/16/21 at 22:00; Stop 07/17/21 at 21:59; Status DC Fentanyl Citrate (Fentanyl 2ml Vial) 25 mcg PRN Q1HR PRN IVP PAIN Last administered on 07/17/21at 20:21; Start 07/16/21 at 19:30 Labetalol HCl (Normodyne Iv Push) 10 mg PRN Q4HRS PRN IVP HYPERTENSION; Start 07/17/21 at 09:15 Potassium Phosphate 15 mmol/ Sodium Chloride 105 ml @ 52.5 mls/hr 1X ONCE IV Last administered on 07/17/21at 12:32; Start 07/17/21 at 12:00; Stop 07/17/21 at 13:59; Status DC Sodium Chloride 70 meq/Potassium Chloride 50 meq/ Potassium Phosphate 25 mmol/ Magnesium Sulfate 10 meq/ Multivitamins 10 ml/Zinc/Copper/ Manganese/ Selenium 1 ml/ Total Parenteral Nutrition/Amino Acids/Dextrose/ Fat Emulsion Intravenous 1,512 ml @ 63 mls/hr TPN CONT IV Last administered on 07/17/21at 20:22; Start 07/17/21 at 22:00; Stop 07/18/21 at 21:59; Status DC Furosemide (Lasix) 40 mg 1X ONCE IVP Last administered on 07/17/21at 12:28; Start 07/17/21 at 11:45; Stop 07/17/21 at 11:46; Status DC Sodium Acetate 70 meq/Potassium Chloride 50 meq/ Potassium Phosphate 22 mmol/ Magnesium Sulfate 8 meq/ Multivitamins 10 ml/Zinc/Copper/ Manganese/ Selenium 1 ml/ Total Parenteral Nutrition/Amino Acids/Dextrose/ Fat Emulsion Intravenous 1,512 ml @ 63 mls/hr TPN CONT IV Last administered on 07/18/21at 21:44; Start 07/18/21 at 22:00; Stop 07/19/21 at 21:59 Meropenem 500 mg/ Sodium Chloride 50 ml @ 100 mls/hr Q8HRS IV Last administered on 07/19/21at 13:37; Start 07/18/21 at 22:00 Daptomycin 450 mg/ Sodium Chloride 50 ml @ 100 mls/hr Q24H IV Last administered on 07/18/21at 20:15; Start 07/18/21 at 20:00 Sodium Chloride 40 meq/Potassium Acetate 50 meq/ Potassium Phosphate 22 mmol/ Magnesium Sulfate 8 meq/ Multivitamins 10 ml/Zinc/Copper/ Manganese/ Selenium 1 ml/ Total Parenteral Nutrition/Amino Acids/Dextrose/ Fat Emulsion Intravenous 1,680 ml @ 70 mls/hr TPN CONT IV ; Start 07/19/21 at 22:00; Stop 07/20/21 at 21:59 Linezolid/Dextrose 300 ml @ 300 mls/hr Q12HR IV Last administered on 07/19/21at 14:12; Start 07/19/21 at 14:00 Active Scripts Active [Pantoprazole] 40 MG Tablet.dr 40 Mg PO BIDBFRMEAL Carafate (Sucralfate) 1 Gm/10 Ml Oral.susp 1 Gm PO TIDBFRMEAL Reported Avalide 150-12.5 Mg Tablet (Irbesartan/Hydrochlorothiazide) 1 Each Tablet 1 Each PO DAILY Allergies Allergies: Coded Allergies: No Known Drug Allergies (Unverified , 06/21/17) ROS Review of System Per HPI due to current medical condition Physical Exam Physical Exam PHYSICAL EXAMINATION: General: Intubated HEENT: Normal cephalic and non traumatic. Neck: No lymphadenopathy. No resistance. Cardiac: S1, S2 Pulmonary: On vent. Abdomen: post sx dressing NEUROLOGICAL EXAMINATION: On vent. Unresponsiveness. Pupils decreased reaction to light stimuli. EOMI not elicited. CN: No acute findings. Neck: No resistance Muscle Tone: decreased. Muscle Strength: minimal movements noted to stimuli DTR: 0-1 Sensory: Minimal response to pain stimuli. Plantar Reflex: No response bilaterally Cerebellar Signs: Not able Gait: Not able Vitals VITALS Vital Signs Date Time Temp Pulse Resp B/P (MAP) Pulse Ox O2 Delivery O2 Flow Rate FiO2 07/19/21 18:05 96 Ventilator 07/19/21 18:00 97 34 142/80 07/19/21 16:00 100.3 100.3 Labs Labs Laboratory Tests Test 07/18/21 06:00 07/18/21 07:25 07/18/21 18:40 07/19/21 06:00 White Blood Count 18.8 x10^3/uL (4.0-11.0) 19.6 x10^3/uL (4.0-11.0) Red Blood Count 4.28 x10^6/uL (4.30-5.70) 3.93 x10^6/uL (4.30-5.70) Hemoglobin 12.3 g/dL (13.0-17.5) 11.3 g/dL (13.0-17.5) Hematocrit 35.9 % (39.0-53.0) 33.7 % (39.0-53.0) Mean Corpuscular Volume 84 fL (79-100) 86 fL (79-100) Mean Corpuscular Hemoglobin 29 pg (25-35) 29 pg (25-35) Mean Corpuscular Hemoglobin Concent 34 g/dL (31-37) 34 g/dL (31-37) Red Cell Distribution Width 15.2 % (11.5-14.5) 15.8 % (11.5-14.5) Platelet Count 334 x10^3/uL (140-400) 381 x10^3/uL (140-400) Sodium Level 145 mmol/L (136-145) 146 mmol/L (136-145) Potassium Level 3.9 mmol/L (3.5-5.1) 4.0 mmol/L (3.5-5.1) Chloride Level 112 mmol/L (98-107) 115 mmol/L (98-107) Carbon Dioxide Level 20 mmol/L (21-32) 21 mmol/L (21-32) Anion Gap 13 (6-14) 10 (6-14) Blood Urea Nitrogen 53 mg/dL (8-26) 61 mg/dL (8-26) Creatinine 1.4 mg/dL (0.7-1.3) 1.4 mg/dL (0.7-1.3) Estimated GFR (Cockcroft-Gault) 48.2 48.2 BUN/Creatinine Ratio 38 (6-20) 44 (6-20) Glucose Level 153 mg/dL (70-99) 144 mg/dL (70-99) Calcium Level 7.8 mg/dL (8.5-10.1) 7.8 mg/dL (8.5-10.1) Phosphorus Level 3.0 mg/dL (2.6-4.7) Magnesium Level 2.3 mg/dL (1.8-2.4) Total Bilirubin 2.6 mg/dL (0.2-1.0) 1.5 mg/dL (0.2-1.0) Aspartate Amino Transf (AST/SGOT) 162 U/L (15-37) 133 U/L (15-37) Alanine Aminotransferase (ALT/SGPT) 101 U/L (16-63) 100 U/L (16-63) Alkaline Phosphatase 145 U/L (46-116) 178 U/L (46-116) Total Protein 5.2 g/dL (6.4-8.2) 5.1 g/dL (6.4-8.2) Albumin 1.1 g/dL (3.4-5.0) 1.0 g/dL (3.4-5.0) Albumin/Globulin Ratio 0.3 (1.0-1.7) 0.2 (1.0-1.7) O2 Saturation 97 % (92-99) Arterial Blood pH 7.44 (7.35-7.45) Arterial Blood pCO2 at Patient Temp 29 mmHg (35-46) Arterial Blood pO2 at Patient Temp 90 mmHg (65-108) Arterial Blood HCO3 19 mmol/L (21-28) Arterial Blood Base Excess -4 mmol/L (-3-3) FiO2 40 Urine Collection Type Unknown Urine Color (Auto) Yellow Urine Turbidity Clear Urine pH (Auto) 5.5 (<5.0-8.0) Urine Specific [place] 1.026 (1.000-1.030) Urine Protein (Auto) 50 mg/dL (Negative) Urine Glucose (Auto)(UA) Negative mg/dL (Negative) Urine Ketones (Auto) Negative mg/dL (Negative) Urine Blood (Auto) Small (Negative) Urine Nitrite Negative (Negative) Urine Bilirubin (Auto) Negative (Negative) Urine Urobilinogen (Auto) Normal mg/dL (Normal) Urine Leukocyte Esterase (Auto) Negative (Negative) Urine RBC 1-2 /HPF (0-2) Urine WBC 0 /HPF (0-4) Urine Bacteria 0 /HPF (0-FEW) Urine Hyaline Casts Few /HPF Urine Mucus Slight /LPF Neutrophils (%) (Auto) 89 % (31-73) Lymphocytes (%) (Auto) 4 % (24-48) Monocytes (%) (Auto) 8 % (0-9) Eosinophils (%) (Auto) 0 % (0-3) Basophils (%) (Auto) 0 % (0-3) Neutrophils # (Auto) 17.4 x10^3/uL (1.8-7.7) Lymphocytes # (Auto) 0.7 x10^3/uL (1.0-4.8) Monocytes # (Auto) 1.5 x10^3/uL (0.0-1.1) Eosinophils # (Auto) 0.0 x10^3/uL (0.0-0.7) Basophils # (Auto) 0.0 x10^3/uL (0.0-0.2) Creatine Kinase 36 U/L (39-308) Test 07/19/21 08:00 O2 Saturation 98 % (92-99) Arterial Blood pH 7.46 (7.35-7.45) Arterial Blood pH (Temp corrected) 7.45 Arterial Blood pCO2 at Patient Temp 27 mmHg (35-46) Arterial Blood pCO2 (Temp correct) 28 mmHg Arterial Blood pO2 at Patient Temp 112 mmHg (65-108) Arterial Blood pO2 (Temp corrected) 117 mmHg Arterial Blood HCO3 19 mmol/L (21-28) Arterial Blood Base Excess -4 mmol/L (-3-3) FiO2 40 Laboratory Tests Test 07/18/21 18:40 07/19/21 06:00 07/19/21 08:00 Urine Collection Type Unknown Urine Color (Auto) Yellow Urine Turbidity Clear Urine pH (Auto) 5.5 (<5.0-8.0) Urine Specific [place] 1.026 (1.000-1.030) Urine Protein (Auto) 50 mg/dL (Negative) Urine Glucose (Auto)(UA) Negative mg/dL (Negative) Urine Ketones (Auto) Negative mg/dL (Negative) Urine Blood (Auto) Small (Negative) Urine Nitrite Negative (Negative) Urine Bilirubin (Auto) Negative (Negative) Urine Urobilinogen (Auto) Normal mg/dL (Normal) Urine Leukocyte Esterase (Auto) Negative (Negative) Urine RBC 1-2 /HPF (0-2) Urine WBC 0 /HPF (0-4) Urine Bacteria 0 /HPF (0-FEW) Urine Hyaline Casts Few /HPF Urine Mucus Slight /LPF White Blood Count 19.6 x10^3/uL (4.0-11.0) Red Blood Count 3.93 x10^6/uL (4.30-5.70) Hemoglobin 11.3 g/dL (13.0-17.5) Hematocrit 33.7 % (39.0-53.0) Mean Corpuscular Volume 86 fL (79-100) Mean Corpuscular Hemoglobin 29 pg (25-35) Mean Corpuscular Hemoglobin Concent 34 g/dL (31-37) Red Cell Distribution Width 15.8 % (11.5-14.5) Platelet Count 381 x10^3/uL (140-400) Neutrophils (%) (Auto) 89 % (31-73) Lymphocytes (%) (Auto) 4 % (24-48) Monocytes (%) (Auto) 8 % (0-9) Eosinophils (%) (Auto) 0 % (0-3) Basophils (%) (Auto) 0 % (0-3) Neutrophils # (Auto) 17.4 x10^3/uL (1.8-7.7) Lymphocytes # (Auto) 0.7 x10^3/uL (1.0-4.8) Monocytes # (Auto) 1.5 x10^3/uL (0.0-1.1) Eosinophils # (Auto) 0.0 x10^3/uL (0.0-0.7) Basophils # (Auto) 0.0 x10^3/uL (0.0-0.2) Sodium Level 146 mmol/L (136-145) Potassium Level 4.0 mmol/L (3.5-5.1) Chloride Level 115 mmol/L (98-107) Carbon Dioxide Level 21 mmol/L (21-32) Anion Gap 10 (6-14) Blood Urea Nitrogen 61 mg/dL (8-26) Creatinine 1.4 mg/dL (0.7-1.3) Estimated GFR (Cockcroft-Gault) 48.2 BUN/Creatinine Ratio 44 (6-20) Glucose Level 144 mg/dL (70-99) Calcium Level 7.8 mg/dL (8.5-10.1) Total Bilirubin 1.5 mg/dL (0.2-1.0) Aspartate Amino Transf (AST/SGOT) 133 U/L (15-37) Alanine Aminotransferase (ALT/SGPT) 100 U/L (16-63) Alkaline Phosphatase 178 U/L (46-116) Creatine Kinase 36 U/L (39-308) Total Protein 5.1 g/dL (6.4-8.2) Albumin 1.0 g/dL (3.4-5.0) Albumin/Globulin Ratio 0.2 (1.0-1.7) O2 Saturation 98 % (92-99) Arterial Blood pH 7.46 (7.35-7.45) Arterial Blood pH (Temp corrected) 7.45 Arterial Blood pCO2 at Patient Temp 27 mmHg (35-46) Arterial Blood pCO2 (Temp correct) 28 mmHg Arterial Blood pO2 at Patient Temp 112 mmHg (65-108) Arterial Blood pO2 (Temp corrected) 117 mmHg Arterial Blood HCO3 19 mmol/L (21-28) Arterial Blood Base Excess -4 mmol/L (-3-3) FiO2 40 Assessment/Plan Assessment/Plan This patient is a 85-year-old man with past medical history of multiple medical problems who was transferred from [facility] patient presented with complaint of abdominal pains, had perforated viscus, patient had exploratory laparotomy, gastrotomy tube placement,hernia repair surgery, patient is intub ated, was treated for hypotension requiring vasopressors, on antibiotics. This patient is a 85-year-old man with past medical history of multiple medical problems who was transferred from [facility] multiple medical problems, apathy, s/p expiratory laparotomy, hernia repair, gastrostomy tube placement, treated for hypotension, vasopressor support, respiratory failure, renal failure, history of prostrate cancer, check for infectious, metabolic etiology, patient is on antibiotics infectious disease recommendations appreciated. 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 Patient is currently intubated. MRI brain cannot be done due to current medical condition. Respiratory failure requiring ventilatory support, patient is critically ill. Continue medical management plan discussed at length. Thank you for allowing me to take part in this patient's care. Please not hesitate to contact me with questions. Transcribed using dictation device. The dictation could contain irregularities inherent in the voice to text conversion software, which may not be detected during the document review process. Please contact our office in case of any confusion or for any clarification, as needed. YASMIN HOLLIDAY MD July 19, 2021 18:28
[2021-07-19] MEDS: DAPTOmycin (GENERIC) IVPB 450 MG in IV NORMAL SALINE 50ML 50 ML IV SCH (20:45)
[2021-07-19] MEDS: FAMOTIDINE 20 MG/2 ML VIAL IVP SCH (20:48)
[2021-07-19] MEDS: ENOXAPARIN 40 MG/0.4 ML SYRINGE. SQ SCH (20:48)
[2021-07-19] MEDS ORDERED: DEXTROSE 70% IV SCH (22:00)
[2021-07-19] MEDS ORDERED: [UNRECOGNIZED DRUG - OTHER] IV SCH (22:00)
[2021-07-19] MEDS ORDERED: AMINO ACID IV SCH (22:00)
[2021-07-19] MEDS ORDERED: TOTAL PARENTERAL NUTRITION IV SCH (22:00)
[2021-07-20] VITALS (24 sets, daily range): BP systolic 112–156; BP diastolic 65–83
--- NOTE | 2021-07-20 00:30 | PN ---
DATE: 07/19/2021 SUBJECTIVE: The patient continued to be encephalopathic despite stopping his sedation for more than 3 days now. He continued to be intubated and mechanically ventilated. He does not open his eyes spontaneously. He does grimace with oral care. PHYSICAL EXAMINATION: GENERAL: When I examined him, he was pale, somewhat cachectic, but not jaundiced or cyanosed. No lymphadenopathy, no thyromegaly, no jugular venous distention. No lower limb edema. VITAL SIGNS: His heart rate was 106, blood pressure is 129/58, temperature was 100.3, respiratory rate was 32 and oxygen saturation was 99% on FiO2 of 40%. HEAD, EYES, EARS, NOSE, AND THROAT: Normocephalic, atraumatic. Has orotracheal and orogastric tube in place. NECK: Supple. HEART: Showed normal first and second heart sounds. No gallop, rub or murmur. CHEST: Clear to auscultation, no crepitation or rhonchi. ABDOMEN: Scaphoid, soft, nontender. NEUROLOGIC: He continued to be encephalopathic, off sedation for more than 3 days now. His intake was 2100, output was 1950. LABORATORY DATA: As of this morning, his white cell count is 19.6, hemoglobin 11, hematocrit 33, MCV 86 and platelet count 381,000. His chemistry showed a serum sodium 146, potassium 4, chloride 115, bicarbonate 21, anion gap of 10, BUN 61, creatinine 1.4. Estimated GFR was 48 mL per minute. His glucose 144. His calcium was 7.8. Total bilirubin, AST, ALT, alkaline phosphatase are elevated, although the bilirubin and AST is trending down. His CK was 36. Total protein 6.1, albumin was 1. ASSESSMENT: 1. Perforated viscus, status post exploratory laparotomy, reduction of gastric volvulus and hiatal hernia repair and gastrostomy tube placement as well as jejunostomy tube placement. 2. Acute hypoxic respiratory failure for which he has continued on mechanically intubated and mechanically ventilated. He is now off sedation for more than 3 days. He is maintaining his oxygen saturation of 97% on FiO2 of 40%. 3. Hypotension, resolved. In fact, he is off Levophed and he is now normotensive. 4. Acute kidney injury is improving. His creatinine has stabilized around 1.4. 5. He did spike his temperature. His white cell count is up to 19.8. 6. His liver enzymes are stabilizing. His bilirubin is down today to 1.5. 7. He has severe protein-calorie malnutrition. His serum albumin is only 1 g/dL. 8. He has multiple preexisting conditions include: A. Hypertension. B. Hiatal hernia. C. Gastroesophageal reflux disease. B. Gastric ulcer. E. Chronic constipation. PLAN: My plan is to arrange for him to have a CT scan of the head without contrast. I will also consult Dr. Oliver to evaluate his mental status and will require an EEG. He continued to be unresponsive. He might require eventually a tracheostomy tube if that what his family wanted. PETEY/MUNDO/ROSELIA DR: PETEY/leighann TID: [id number]
[2021-07-20] MEDS: MEROPENEM 500 MG in IV NORMAL SALINE 50ML 50 ML IV SCH ×3 (05:56→22:14)
[2021-07-20 06:02] LABS: BASO % 0 % (0-3); EOS % 0 % (0-3); HEMATOCRIT 31.9 % (39.0-53.0); HEMOGLOBIN 10.8 g/dL (13.0-17.5); LYMPH # 0.8 x10^3/uL (1.0-4.8); LYMPH % 4 % (24-48); MEAN CORPUSCULAR HEMOGLOBIN 29 pg (25-35); MEAN CORPUSCULAR HGB CONC 34 g/dL (31-37); MEAN CORPUSCULAR VOLUME 85 fL (79-100); MONO # 1.3 x10^3/uL (0.0-1.1); MONO % 7 % (0-9); NEUT # 16.1 x10^3/uL (1.8-7.7); NEUT % 88 % (31-73); PLATELET COUNT 381 x10^3/uL (140-400); RED BLOOD COUNT 3.73 x10^6/uL (4.30-5.70); RED CELL DISTRIBUTION WIDTH 15.4 % (11.5-14.5); WHITE BLOOD COUNT 18.2 x10^3/uL (4.0-11.0)
[2021-07-20 06:16] LABS: CALCIUM 7.3 mg/dL (8.5-10.1); CREATININE 1.2 mg/dL (0.7-1.3); GFR 57.5; MAGNESIUM 2.4 mg/dL (1.8-2.4); PHOSPHORUS 3.3 mg/dL (2.6-4.7); POTASSIUM 3.9 mmol/L (3.5-5.1)
[2021-07-20 07:28] LABS: % ATYL 2 % (0-0); % BANDS 2 % (0-9); % LYMPHS 5 % (24-48); % MONOS 2 % (0-10); % SEGS 89 % (35-66); PLT ESTIMATE ADEQUATE (ADEQUATE)
[2021-07-20] MEDS: TPN PER PHARMACY MC PRN (08:14)
--- NOTE | 2021-07-20 08:15 | NUR ---
Pharmacy TPN Dosing Note S: AZEB COOMBS is a 85 year old M Currently receiving Central Continuous TPN started 07/15/21 B:Pertinent PMH: NPO SINCE 07/12, PERFERATED BOWEL Height: 5 feet, 4 inches Weight: 75.0 kg Current diet: NPO LABS: Sodium: 147 Potassium: 3.9 Chloride: 116 Calcium: 7.3 Corrected Calcium: 9.70 Magnesium: 2.4 CO2: 23 SCr: 1.2 Glucose: 126 Albumin: 1.0 AST: 133 ALT: 100 TPN FORMULA: TPN TYPE: Central Continuous AMINO ACIDS: 75 gm DEXTROSE: 155 gm LIPIDS: 20 gm SODIUM CHLORIDE: 40 mEq POTASSIUM ACETATE: 50 mEq POTASSIUM PHOSPHATE: 22 mmol MAGNESIUM: 6 mEq MULTIPLE VITAMIN: 10 ml TRACE ELEMENTS: 1 mL ml(s) TPN PLAN: DECREASE MAG TO 6 MEQ, NA AND CL TRENDING UP, BUT NACL DECREASED JUST LAST BAG. R: Continue TPN Will monitor electrolytes, glucose, and tolerance to TPN. ELIZABETH ALMAGUER [facility], 07/20/21 [id number]
--- NOTE | 2021-07-20 08:31 | PDOC ---
PROGRESS NOTES Date of Service DATE: 07/20/21 TIME: 08:26 Assessment Metabolic encephalopathy, may have had some anoxia? Better Perforated viscus, status-post exploratory laparotomy, gastrotomy tube pl acement, hernia repair surgery, respiratory failure, hypotension requiring vasopressors, sepsis, acute kidney injury, abnormal liver function tests, history of prostrate cancer anoxic encephalopathy. History of hypertension, hiatal hernia, gastroesophageal reflux disease, gastric ulcer, constipation Prostate cancer and melanoma, metastatic Plan Given the improvement, we will hold off on additional studies such as electroencephalogram and brain MRI Subjective Indicates no pain Objective Vital Signs Date Time Temp Pulse Resp B/P (MAP) Pulse Ox O2 Delivery O2 Flow Rate FiO2 07/20/21 08:00 98.4 92 34 123/66 100 Ventilator 98.4 Intake and Output0 07/20/21 07:00 Intake Total 1827 ml Output Total 1185 ml Balance 642 ml IV Total 1797 ml Other 30 ml Output Urine Total 1125 ml Drainage Total 60 ml # Bowel Movements 2 PHYSICAL EXAM Alert, follows commands, still on ventilator PERRL. EOMI. CN: no focal findings. Muscle tone: normal. Muscle strength: 1/5 DTR: 0+ Plantar reflex: Silent Gait: not examined in bed. Sensory exam: no abnormal findings. No cerebellar signs elicited. Review of Relevant I have reviewed the following items jaonne (where applicable) has been applied. Labs Laboratory Tests Test 07/18/21 18:40 07/19/21 06:00 07/19/21 08:00 07/20/21 05:45 Urine Collection Type Unknown Urine Color (Auto) Yellow Urine Turbidity Clear Urine pH (Auto) 5.5 (<5.0-8.0) Urine Specific [place] 1.026 (1.000-1.030) Urine Protein (Auto) 50 mg/dL (Negative) Urine Glucose (Auto)(UA) Negative mg/dL (Negative) Urine Ketones (Auto) Negative mg/dL (Negative) Urine Blood (Auto) Small (Negative) Urine Nitrite Negative (Negative) Urine Bilirubin (Auto) Negative (Negative) Urine Urobilinogen (Auto) Normal mg/dL (Normal) Urine Leukocyte Esterase (Auto) Negative (Negative) Urine RBC 1-2 /HPF (0-2) Urine WBC 0 /HPF (0-4) Urine Bacteria 0 /HPF (0-FEW) Urine Hyaline Casts Few /HPF Urine Mucus Slight /LPF White Blood Count 19.6 x10^3/uL (4.0-11.0) 18.2 x10^3/uL (4.0-11.0) Red Blood Count 3.93 x10^6/uL (4.30-5.70) 3.73 x10^6/uL (4.30-5.70) Hemoglobin 11.3 g/dL (13.0-17.5) 10.8 g/dL (13.0-17.5) Hematocrit 33.7 % (39.0-53.0) 31.9 % (39.0-53.0) Mean Corpuscular Volume 86 fL (79-100) 85 fL (79-100) Mean Corpuscular Hemoglobin 29 pg (25-35) 29 pg (25-35) Mean Corpuscular Hemoglobin Concent 34 g/dL (31-37) 34 g/dL (31-37) Red Cell Distribution Width 15.8 % (11.5-14.5) 15.4 % (11.5-14.5) Platelet Count 381 x10^3/uL (140-400) 381 x10^3/uL (140-400) Neutrophils (%) (Auto) 89 % (31-73) 88 % (31-73) Lymphocytes (%) (Auto) 4 % (24-48) 4 % (24-48) Monocytes (%) (Auto) 8 % (0-9) 7 % (0-9) Eosinophils (%) (Auto) 0 % (0-3) 0 % (0-3) Basophils (%) (Auto) 0 % (0-3) 0 % (0-3) Neutrophils # (Auto) 17.4 x10^3/uL (1.8-7.7) 16.1 x10^3/uL (1.8-7.7) Lymphocytes # (Auto) 0.7 x10^3/uL (1.0-4.8) 0.8 x10^3/uL (1.0-4.8) Monocytes # (Auto) 1.5 x10^3/uL (0.0-1.1) 1.3 x10^3/uL (0.0-1.1) Eosinophils # (Auto) 0.0 x10^3/uL (0.0-0.7) 0.0 x10^3/uL (0.0-0.7) Basophils # (Auto) 0.0 x10^3/uL (0.0-0.2) 0.0 x10^3/uL (0.0-0.2) Sodium Level 146 mmol/L (136-145) 147 mmol/L (136-145) Potassium Level 4.0 mmol/L (3.5-5.1) 3.9 mmol/L (3.5-5.1) Chloride Level 115 mmol/L (98-107) 116 mmol/L (98-107) Carbon Dioxide Level 21 mmol/L (21-32) 23 mmol/L (21-32) Anion Gap 10 (6-14) 8 (6-14) Blood Urea Nitrogen 61 mg/dL (8-26) 57 mg/dL (8-26) Creatinine 1.4 mg/dL (0.7-1.3) 1.2 mg/dL (0.7-1.3) Estimated GFR (Cockcroft-Gault) 48.2 57.5 BUN/Creatinine Ratio 44 (6-20) Glucose Level 144 mg/dL (70-99) 126 mg/dL (70-99) Calcium Level 7.8 mg/dL (8.5-10.1) 7.3 mg/dL (8.5-10.1) Total Bilirubin 1.5 mg/dL (0.2-1.0) Aspartate Amino Transf (AST/SGOT) 133 U/L (15-37) Alanine Aminotransferase (ALT/SGPT) 100 U/L (16-63) Alkaline Phosphatase 178 U/L (46-116) Creatine Kinase 36 U/L (39-308) Total Protein 5.1 g/dL (6.4-8.2) Albumin 1.0 g/dL (3.4-5.0) Albumin/Globulin Ratio 0.2 (1.0-1.7) O2 Saturation 98 % (92-99) Arterial Blood pH 7.46 (7.35-7.45) Arterial Blood pH (Temp corrected) 7.45 Arterial Blood pCO2 at Patient Temp 27 mmHg (35-46) Arterial Blood pCO2 (Temp correct) 28 mmHg Arterial Blood pO2 at Patient Temp 112 mmHg (65-108) Arterial Blood pO2 (Temp corrected) 117 mmHg Arterial Blood HCO3 19 mmol/L (21-28) Arterial Blood Base Excess -4 mmol/L (-3-3) FiO2 40 Segmented Neutrophils % 89 % (35-66) Band Neutrophils % 2 % (0-9) Lymphocytes % 5 % (24-48) Atypical Lymphocytes % (Manual) 2 % (0-0) Monocytes % 2 % (0-10) Platelet Estimate Adequate (ADEQUATE) Phosphorus Level 3.3 mg/dL (2.6-4.7) Magnesium Level 2.4 mg/dL (1.8-2.4) Triglycerides Level 168 mg/dL (0-150) Laboratory Tests Test 07/20/21 05:45 White Blood Count 18.2 x10^3/uL (4.0-11.0) Red Blood Count 3.73 x10^6/uL (4.30-5.70) Hemoglobin 10.8 g/dL (13.0-17.5) Hematocrit 31.9 % (39.0-53.0) Mean Corpuscular Volume 85 fL (79-100) Mean Corpuscular Hemoglobin 29 pg (25-35) Mean Corpuscular Hemoglobin Concent 34 g/dL (31-37) Red Cell Distribution Width 15.4 % (11.5-14.5) Platelet Count 381 x10^3/uL (140-400) Neutrophils (%) (Auto) 88 % (31-73) Lymphocytes (%) (Auto) 4 % (24-48) Monocytes (%) (Auto) 7 % (0-9) Eosinophils (%) (Auto) 0 % (0-3) Basophils (%) (Auto) 0 % (0-3) Neutrophils # (Auto) 16.1 x10^3/uL (1.8-7.7) Lymphocytes # (Auto) 0.8 x10^3/uL (1.0-4.8) Monocytes # (Auto) 1.3 x10^3/uL (0.0-1.1) Eosinophils # (Auto) 0.0 x10^3/uL (0.0-0.7) Basophils # (Auto) 0.0 x10^3/uL (0.0-0.2) Segmented Neutrophils % 89 % (35-66) Band Neutrophils % 2 % (0-9) Lymphocytes % 5 % (24-48) Atypical Lymphocytes % (Manual) 2 % (0-0) Monocytes % 2 % (0-10) Platelet Estimate Adequate (ADEQUATE) Sodium Level 147 mmol/L (136-145) Potassium Level 3.9 mmol/L (3.5-5.1) Chloride Level 116 mmol/L (98-107) Carbon Dioxide Level 23 mmol/L (21-32) Anion Gap 8 (6-14) Blood Urea Nitrogen 57 mg/dL (8-26) Creatinine 1.2 mg/dL (0.7-1.3) Estimated GFR (Cockcroft-Gault) 57.5 Glucose Level 126 mg/dL (70-99) Calcium Level 7.3 mg/dL (8.5-10.1) Phosphorus Level 3.3 mg/dL (2.6-4.7) Magnesium Level 2.4 mg/dL (1.8-2.4) Triglycerides Level 168 mg/dL (0-150) Microbiology 07/18/21 Blood Culture - Preliminary, Resulted NO GROWTH AFTER 1 DAY Medications Current Medications Ceftriaxone Sodium (Rocephin) 2 gm Q24H IVP Last administered on 07/13/21at 06:30; Start 07/12/21 at 07:00; Stop 07/13/21 at 09:46; Status DC Metronidazole 100 ml @ 100 mls/hr Q8HRS IV Last administered on 07/13/21at 06:15; Start 07/12/21 at 14:00; Stop 07/13/21 at 09:46; Status DC Morphine Sulfate (Morphine Sulfate) 4 mg PRN Q4HRS PRN IVP SEVERE PAIN 7-10 Last administered on 07/12/21at 06:59; Start 07/12/21 at 06:15; Stop 07/12/21 at 13:52; Status DC Ondansetron HCl (Zofran) 4 mg PRN Q4HRS PRN IVP NAUSEA/VOMITING 1ST CHOICE Last administered on 07/12/21at 07:02; Start 07/12/21 at 06:15; Stop 07/12/21 at 13:03; Status DC Sodium Chloride 1,000 ml @ 150 mls/hr Q6H40M IV Last administered on 07/16/21at 04:36; Start 07/12/21 at 06:15; Stop 07/16/21 at 10:01; Status DC Piperacillin Sod/ Tazobactam Sod 2.25 gm/Sodium Chloride 50 ml @ 100 mls/hr Q8HRS IV Last administered on 07/13/21at 05:37; Start 07/12/21 at 14:00; Stop 07/13/21 at 11:36; Status DC Propofol (Diprivan) 200 mg STK-MED ONCE IV ; Start 07/12/21 at 07:43; Stop at 07:44; Status DC Ondansetron HCl (Zofran) 4 mg STK-MED ONCE .ROUTE ; Start 07/12/21 at 07:43; Stop 07/12/21 at 07:44; Status DC Dexamethasone Sodium Phosphate (Decadron) 4 mg STK-MED ONCE .ROUTE ; Start 07/12/21 at 07:43; Stop 07/12/21 at 07:44; Status DC Succinylcholine Chloride (Anectine) 200 mg STK-MED ONCE .ROUTE ; Start 07/12/21 at 07:44; Stop 07/12/21 at 07:44; Status DC Neostigmine Phoenix (Neostigmine Methylsulfate) 5 mg STK-MED ONCE .ROUTE ; Start 07/12/21 at 07:44; Stop 07/12/21 at 07:44; Status DC Rocuronium Phoenix (Zemuron) 50 mg STK-MED ONCE .ROUTE ; Start 07/12/21 at 07:44; Stop 07/12/21 at 07:44; Status DC Fentanyl Citrate (Fentanyl 2ml Vial) 100 mcg STK-MED ONCE .ROUTE ; Start 07/12/21 at 07:44; Stop 07/12/21 at 07:44; Status DC Midazolam HCl (Versed) 2 mg STK-MED ONCE .ROUTE ; Start 07/12/21 at 07:44; Stop 07/12/21 at 07:44; Status DC Glycopyrrolate (Robinul) 1 mg STK-MED ONCE .ROUTE ; Start 07/12/21 at 07:45; Stop 07/12/21 at 07:45; Status DC Fentanyl Citrate (Fentanyl 2ml Vial) 25 mcg PRN Q5MIN PRN IVP MILD PAIN 1-3; Start 07/12/21 at 08:00; Stop 07/13/21 at 07:59; Status DC Fentanyl Citrate (Fentanyl 2ml Vial) 50 mcg PRN Q5MIN PRN IVP MODERATE PAIN 4- 6; Start 07/12/21 at 08:00; Stop 07/13/21 at 07:59; Status DC Morphine Sulfate (Morphine Sulfate) 1 mg PRN Q10MIN PRN IVP SEVERE PAIN 7-10; Start 07/12/21 at 08:00; Stop 07/13/21 at 07:59; Status DC Ringer's Solution 1,000 ml @ 30 mls/hr Q24H IV ; Start 07/12/21 at 08:00; Stop 07/12/21 at 19:59; Status DC Hydromorphone HCl (Dilaudid) 0.5 mg PRN Q10MIN PRN IVP SEVERE PAIN 7-10, 2nd CHOICE; Start 07/12/21 at 08:00; Stop 07/13/21 at 07:59; Status DC Prochlorperazine Edisylate (Compazine) 5 mg PACU PRN PRN IVP NAUSEA, MRX1; Start 07/12/21 at 08:00; Stop 07/13/21 at 07:59; Status DC Albumin Human 500 ml @ 125 mls/hr 1X ONCE IV Last administered on 07/12/21at 08:17; Start 07/12/21 at 08:15; Stop 07/12/21 at 12:14; Status DC Etomidate (Amidate) 20 mg STK-MED ONCE IV ; Start 07/12/21 at 08:30; Stop 07/12/21 at 08:30; Status DC Rocuronium Phoenix (Zemuron) 100 mg STK-MED ONCE .ROUTE ; Start 07/12/21 at 09:34; Stop 07/12/21 at 09:34; Status DC Phenylephrine HCl (PHENYLEPHRINE in 0.9% NACL PF) 1 mg STK-MED ONCE IV ; Start 07/12/21 at 10:27; Stop 07/12/21 at 10:27; Status DC Phenylephrine HCl (Lionel-Synephrine Inj) 10 mg STK-MED ONCE .ROUTE ; Start 07/12/21 at 10:27; Stop 07/12/21 at 10:27; Status DC Ephedrine Sulfate (ePHEDrine PF IN SALINE SYRINGE) 50 mg STK-MED ONCE IV ; Start 07/12/21 at 10:27; Stop 07/12/21 at 10:27; Status DC Albumin Human 500 ml @ As Directed STK-MED ONCE IV ; Start 07/12/21 at 11:15; Stop 07/12/21 at 11:16; Status DC Albumin Human 500 ml @ 500 mls/hr 1X ONCE IV Last administered on 07/12/21at 13:40; Start 07/12/21 at 11:30; Stop 07/12/21 at 12:29; Status DC Phenylephrine HCl (Lionel-Synephrine Inj) 10 mg STK-MED ONCE .ROUTE ; Start 07/12/21 at 11:54; Stop 07/12/21 at 11:55; Status DC Cefoxitin Sodium (Mefoxin) 1 gm Q6H IVP Last administered on 07/13/21at 01:47; Start 07/12/21 at 14:00; Stop 07/13/21 at 02:01; Status DC Famotidine (Pepcid Vial) 20 mg QHS IVP Last administered on 07/19/21at 20:48; Start 07/12/21 at 21:00 Enoxaparin Sodium (Lovenox 30mg Syringe) 30 mg Q24H SQ Last administered on 07/15/21at 21:04; Start 07/12/21 at 21:00; Stop 07/16/21 at 09:07; Status DC Sodium Chloride (Normal Saline Flush) 3 ml QSHIFT PRN IV AFTER MEDS AND BLOOD DRAWS; Start 07/12/21 at 12:15 Ringer's Solution 1,000 ml @ 100 mls/hr Q10H IV Last administered on 07/13/21at 10:39; Start 07/12/21 at 12:15; Stop 07/13/21 at 19:33; Status DC Naloxone HCl (Narcan) 0.4 mg PRN Q2MIN PRN IV SEE INSTRUCTIONS; Start 07/12/21 at 12:15 Sodium Chloride 1,000 ml @ 25 mls/hr Q24H IV ; Start 07/12/21 at 12:15; Stop 07/13/21 at 19:33; Status DC Morphine Sulfate (Morphine Sulfate) 1 mg PRN Q1HR PRN IV MODERATE PAIN; Start 07/12/21 at 12:15; Stop 07/12/21 at 13:51; Status DC Ondansetron HCl (Zofran) 4 mg PRN Q6HRS PRN IVP NAUESA, 1ST CHOICE; Start 07/12/21 at 12:15 Midazolam HCl 100 ml @ 1 mls/hr CONT PRN IV SEE PROTOCOL Last administered on 07/12/21at 16:55; Start 07/12/21 at 12:45; Stop 07/16/21 at 19:27; Status DC Propofol 100 ml @ 1.74 mls/hr CONT PRN IV PER PROTOCOL; Start 07/12/21 at 12:45; Stop 07/16/21 at 19:27; Status DC Glycerin/ Hypromellose/ Polyethylene (Artificial Tears) 1 drop PRN Q1HR PRN OU DRY EYE; Start 07/12/21 at 12:45 Albumin Human 500 ml @ 125 mls/hr 1X ONCE IV ; Start 07/12/21 at 12:45; Stop 07/12/21 at 16:44; Status DC Fentanyl Citrate 30 ml @ 0 mls/hr CONT PRN IV SEE PROTOCOL Last administered on 07/12/21at 23:40; Start 07/12/21 at 13:15; Stop 07/13/21 at 10:16; Status DC Sodium Bicarbonate (Sodium Bicarb Adult 8.4% Syr) 50 meq STK-MED ONCE .ROUTE ; Start 07/12/21 at 13:28; Stop 07/12/21 at 13:28; Status DC Sodium Bicarbonate (Sodium Bicarb Adult 8.4% Syr) 50 meq 1X ONCE IV Last administered on 07/12/21at 13:40; Start 07/12/21 at 13:45; Stop 07/12/21 at 13:46; Status DC Sodium Bicarbonate 150 meq/Dextrose 1,150 ml @ 75 mls/hr [id number] IV Last administered on 07/13/21at 05:37; Start 07/12/21 at 14:30; Stop 07/13/21 at 19:34; Status DC Norepinephrine Bitartrate 8 mg/ Dextrose 258 ml @ 11.204 mls/ hr CONT PRN IV PER PROTOCOL Last administered on 07/14/21at 23:22; Start 07/12/21 at 13:45; Stop 07/15/21 at 03:14; Status DC Fentanyl Citrate (Fentanyl 2ml Vial) 50 mcg 1X ONCE IVP ; Start 07/12/21 at 14:15; Stop 07/12/21 at 14:16; Status DC Sodium Bicarbonate (Sodium Bicarb Adult 8.4% Syr) 50 meq STK-MED ONCE .ROUTE ; Start 07/12/21 at 21:15; Stop 07/12/21 at 21:15; Status DC Sevoflurane (Ultane) 60 ml STK-MED ONCE IH ; Start 07/12/21 at 21:15; Stop 07/12/21 at 21:15; Status DC Digoxin (Lanoxin) 500 mcg 1X ONCE IV Last administered on 07/13/21at 03:22; Start 07/13/21 at 03:30; Stop 07/13/21 at 03:31; Status DC Fentanyl Citrate 55 ml @ 1 mls/hr CONT PRN IV SEE PROTOCOL Last administered on 07/15/21at 06:00; Start 07/13/21 at 10:30; Stop 07/16/21 at 19:27; Status DC Piperacillin Sod/ Tazobactam Sod 2.25 gm/Sodium Chloride 50 ml @ 100 mls/hr Q6HRS IV Last administered on 07/18/21at 17:10; Start 07/13/21 at 12:00; Stop 07/18/21 at 18:02; Status DC Propofol (Diprivan) 1,000 mg STK-MED ONCE IV ; Start 07/12/21 at 13:00; Stop at 12:22; Status DC Digoxin (Lanoxin) 500 mcg 1X ONCE IV Last administered on 07/14/21at 04:40; Start 07/14/21 at 04:30; Stop 07/14/21 at 04:31; Status DC Magnesium Sulfate 50 ml @ 25 mls/hr 1X ONCE IV Last administered on 07/14/21at 15:22; Start 07/14/21 at 12:30; Stop 07/14/21 at 14:29; Status DC Sodium Chloride 1,000 ml @ 1,000 mls/hr 1X ONCE IV Last administered on 07/14/21at 12:15; Start 07/14/21 at 12:30; Stop 07/14/21 at 13:29; Status DC Sodium Chloride 1,000 ml @ 1,000 mls/hr 1X ONCE IV Last administered on 07/14/21at 15:42; Start 07/14/21 at 15:30; Stop 07/14/21 at 16:29; Status DC Sodium Chloride 500 ml @ 500 mls/hr 1X ONCE IV Last administered on 07/14/21at 12:15; Start 07/14/21 at 15:30; Stop 07/14/21 at 16:29; Status DC Norepinephrine Bitartrate 32 mg/ Dextrose 250 ml @ 3.192 mls/ hr CONT PRN IV SEE I/O RECORD Last administered on 07/15/21at 04:15; Start 07/15/21 at 03:30 Furosemide (Lasix) 20 mg 1X ONCE IVP Last administered on 07/15/21at 18:29; Start 07/15/21 at 10:00; Stop 07/15/21 at 10:01; Status DC Info (Tpn Per Pharmacy) 1 each PRN DAILY PRN MC SEE COMMENTS Last administered on 07/20/21at 08:14; Start 07/15/21 at 10:30 Sodium Chloride 90 meq/Potassium Chloride 50 meq/ Potassium Phosphate 13.6 mmol/Magnesium Sulfate 10 meq/ Multivitamins 10 ml/Zinc/Copper/ Manganese/ Selenium 1 ml/ Total Parenteral Nutrition/Amino Acids/Dextrose/ Fat Emulsion In travenous 1,512 ml @ 63 mls/hr TPN CONT IV Last administered on 07/15/21at 22:05; Start 07/15/21 at 22:00; Stop 07/16/21 at 21:59; Status DC Furosemide (Lasix) 20 mg 1X ONCE IVP ; Start 07/15/21 at 18:30; Stop 07/15/21 at 18:31; Status DC Enoxaparin Sodium (Lovenox 40mg Syringe) 40 mg Q24H SQ Last administered on 07/19/21at 20:48; Start 07/16/21 at 21:00 Sodium Chloride 70 meq/Potassium Chloride 50 meq/ Potassium Phosphate 20 mmol/ Magnesium Sulfate 10 meq/ Multivitamins 10 ml/Zinc/Copper/ Manganese/ Selenium 1 ml/ Total Parenteral Nutrition/Amino Acids/Dextrose/ Fat Emulsion Intravenous 1,512 ml @ 63 mls/hr TPN CONT IV ; Start 07/16/21 at 22:00; Stop 07/16/21 at 13:33; Status DC Sodium Chloride 70 meq/Potassium Chloride 50 meq/ Potassium Phosphate 20 mmol/ Magnesium Sulfate 10 meq/ Multivitamins 10 ml/Zinc/Copper/ Manganese/ Selenium 1 ml/ Total Parenteral Nutrition/Amino Acids/Dextrose/ Fat Emulsion Intravenous 1,482 ml @ 61.75 mls/ hr TPN CONT IV ; Start 07/16/21 at 22:00; Stop 07/16/21 at 14:03; Status DC Sodium Chloride 70 meq/Potassium Chloride 50 meq/ Potassium Phosphate 20 mmol/ Magnesium Sulfate 10 meq/ Multivitamins 10 ml/Zinc/Copper/ Manganese/ Selenium 1 ml/ Total Parenteral Nutrition/Amino Acids/Dextrose/ Fat Emulsion Intravenous 1,512 ml @ 63 mls/hr TPN CONT IV Last administered on 07/16/21at 21:38; Start 07/16/21 at 22:00; Stop 07/17/21 at 21:59; Status DC Fentanyl Citrate (Fentanyl 2ml Vial) 25 mcg PRN Q1HR PRN IVP PAIN Last administered on 07/17/21at 20:21; Start 07/16/21 at 19:30 Labetalol HCl (Normodyne Iv Push) 10 mg PRN Q4HRS PRN IVP HYPERTENSION; Start 07/17/21 at 09:15 Potassium Phosphate 15 mmol/ Sodium Chloride 105 ml @ 52.5 mls/hr 1X ONCE IV Last administered on 07/17/21at 12:32; Start 07/17/21 at 12:00; Stop 07/17/21 at 13:59; Status DC Sodium Chloride 70 meq/Potassium Chloride 50 meq/ Potassium Phosphate 25 mmol/ Magnesium Sulfate 10 meq/ Multivitamins 10 ml/Zinc/Copper/ Manganese/ Selenium 1 ml/ Total Parenteral Nutrition/Amino Acids/Dextrose/ Fat Emulsion Intravenous 1,512 ml @ 63 mls/hr TPN CONT IV Last administered on 07/17/21at 20:22; Start 07/17/21 at 22:00; Stop 07/18/21 at 21:59; Status DC Furosemide (Lasix) 40 mg 1X ONCE IVP Last administered on 07/17/21at 12:28; Start 07/17/21 at 11:45; Stop 07/17/21 at 11:46; Status DC Sodium Acetate 70 meq/Potassium Chloride 50 meq/ Potassium Phosphate 22 mmol/ Magnesium Sulfate 8 meq/ Multivitamins 10 ml/Zinc/Copper/ Manganese/ Selenium 1 ml/ Total Parenteral Nutrition/Amino Acids/Dextrose/ Fat Emulsion Intravenous 1,512 ml @ 63 mls/hr TPN CONT IV Last administered on 07/18/21at 21:44; Start 07/18/21 at 22:00; Stop 07/19/21 at 21:59; Status DC Meropenem 500 mg/ Sodium Chloride 50 ml @ 100 mls/hr Q8HRS IV Last administered on 07/20/21at 05:56; Start 07/18/21 at 22:00 Daptomycin 450 mg/ Sodium Chloride 50 ml @ 100 mls/hr Q24H IV Last administered on 07/19/21at 20:45; Start 07/18/21 at 20:00 Sodium Chloride 40 meq/Potassium Acetate 50 meq/ Potassium Phosphate 22 mmol/ Magnesium Sulfate 8 meq/ Multivitamins 10 ml/Zinc/Copper/ Manganese/ Selenium 1 ml/ Total Parenteral Nutrition/Amino Acids/Dextrose/ Fat Emulsion Intravenous 1,680 ml @ 70 mls/hr TPN CONT IV Last administered on 07/19/21at 21:40; Start 07/19/21 at 22:00; Stop 07/20/21 at 21:59 Linezolid/Dextrose 300 ml @ 300 mls/hr Q12HR IV Last administered on 07/19/21at 20:48; Start 07/19/21 at 14:00 Sodium Chloride 40 meq/Potassium Acetate 50 meq/ Potassium Phosphate 22 mmol/ Magnesium Sulfate 6 meq/ Multivitamins 10 ml/Zinc/Copper/ Manganese/ Selenium 1 ml/ Total Parenteral Nutrition/Amino Acids/Dextrose/ Fat Emulsion Intravenous 1,680 ml @ 70 mls/hr TPN CONT IV ; Start 07/20/21 at 22:00; Stop 07/21/21 at 21:59 Active Scripts Active [Pantoprazole] 40 MG Tablet.dr 40 Mg PO BIDBFRMEAL Carafate (Sucralfate) 1 Gm/10 Ml Oral.susp 1 Gm PO TIDBFRMEAL Reported Avalide 150-12.5 Mg Tablet (Irbesartan/Hydrochlorothiazide) 1 Each Tablet 1 Each PO DAILY Vitals/I & O Vital Sign - Last 24 Hours 07/19/21 07/19/21 07/19/21 07/19/21 09:00 10:00 10:00 11:00 Pulse 123 95 108 Resp 34 32 34 B/P (MAP) 120/64 134/77 103/60 Pulse Ox 98 96 98 91 O2 Delivery Ventilator Ventilator Ventilator Ventilator 07/19/21 07/19/21 07/19/21 07/19/21 11:32 11:54 12:00 13:00 Temp 99.3 99.3 Pulse 92 121 Resp 32 32 B/P (MAP) 116/59 111/63 Pulse Ox 93 94 95 O2 Delivery Mechanical Ventilator Ventilator Ventilator Ventilator 07/19/21 07/19/21 07/19/21 07/19/21 14:00 14:00 15:00 15:35 Pulse 92 117 Resp 34 30 B/P (MAP) 130/72 120/64 Pulse Ox 96 96 97 96 O2 Delivery Ventilator Ventilator Ventilator Ventilator 07/19/21 07/19/21 07/19/21 07/19/21 15:42 16:00 17:00 18:00 Temp 100.3 100.3 Pulse 93 96 97 Resp 34 32 34 B/P (MAP) 131/72 142/80 142/80 Pulse Ox 97 99 99 O2 Delivery Mechanical Ventilator Ventilator Ventilator Ventilator 07/19/21 07/19/21 07/19/21 07/19/21 18:05 19:00 20:00 20:00 Temp 99.4 99.4 Pulse 91 107 Resp 32 36 B/P (MAP) 123/67 143/76 Pulse Ox 96 96 99 O2 Delivery Ventilator Ventilator Ventilator Mechanical Ventilator 07/19/21 07/19/21 07/19/21 07/19/21 20:26 21:00 22:00 22:30 Pulse 91 90 Resp 32 32 B/P (MAP) 127/67 127/60 Pulse Ox 99 96 100 99 O2 Delivery Ventilator Ventilator Ventilator Ventilator 07/19/21 07/19/21 07/20/21 07/20/21 23:00 23:59 00:01 00:10 Temp 99.3 99.3 Pulse 91 90 Resp 32 32 B/P (MAP) 129/66 129/66 Pulse Ox 100 100 99 O2 Delivery Ventilator Mechanical Ventilator Ventilator Ventilator 07/20/21 07/20/21 07/20/21 07/20/21 01:00 02:00 02:15 03:00 Pulse 92 90 116 Resp 32 38 34 B/P (MAP) 112/74 116/65 135/83 Pulse Ox 100 100 99 100 O2 Delivery Ventilator Ventilator Ventilator Ventilator 07/20/21 07/20/21 07/20/21 07/20/21 04:00 04:00 04:26 05:00 Temp 98.4 98.4 Pulse 91 90 Resp 33 32 B/P (MAP) 121/75 138/65 Pulse Ox 100 99 100 O2 Delivery Ventilator Mechanical Ventilator Ventilator Ventilator 07/20/21 07/20/21 07/20/21 07/20/21 06:00 07:00 07:29 07:40 Pulse 90 90 Resp 32 34 B/P (MAP) 149/79 137/75 Pulse Ox 100 100 100 O2 Delivery Ventilator Ventilator Ventilator Mechanical Ventilator 07/20/21 08:00 Temp 98.4 98.4 Pulse 92 Resp 34 B/P (MAP) 123/66 Pulse Ox 100 O2 Delivery Ventilator Intake and Output0 07/19/21 07/19/21 07/20/21 15:00 23:00 07:00 Intake Total 50 ml 1747 ml 30 ml Output Total 355 ml 485 ml 345 ml Balance -305 ml 1262 ml -[address] scan of the head without contrast 07/19/2021 Clinical History: Encephalopathy. Technique: Unenhanced, contiguous, 5 mm axial sections were obtained through the head. One or more of the following individualized dose reduction techniques were utilized for this study: 1. Automated exposure control. 2. Adjustment of the mA and/or kV according to patient size. 3. Use of iterative reconstruction technique. Findings: There is generalized parenchymal atrophy. Areas of decreased attenuation are seen within the periventricular and subcortical white matter of both cerebral hemispheres consistent with areas of small vessel ischemic disease. No acute parenchymal abnormality is seen. No extra-axial fluid collection is noted. No skull fracture is seen. Mild to moderate mucosal thickening in seen within the sphenoid sinus. Impression: No acute intracranial abnormality is seen. Justicifation of Admission Dx: Justifications for Admission: Justification of Admission Dx: Yes Sepsis: Hemodynamic Instability ROME CANTOR MD July 20, 2021 08:31
--- NOTE | 2021-07-20 09:09 | PDOC ---
SURGICAL PROGRESS NOTE DATE: 07/20/21 TIME: 09:05 Subjective starting to awaken d.w with nursing Vital Signs Vital Signs Date Time Temp Pulse Resp B/P (MAP) Pulse Ox O2 Delivery O2 Flow Rate FiO2 07/20/21 08:00 98.4 92 34 123/66 100 Ventilator 98.4 I&O Intake and Output 07/20/21 07:00 Intake Total 1827 ml Output Total 1185 ml Balance 642 ml IV Total 1797 ml Other 30 ml Output Urine Total 1125 ml Drainage Total 60 ml # Bowel Movements 2 General: Other (opens eyes, minimal following ) Abdomen: Soft, Other (tubes in place) Labs Laboratory Tests Test 07/18/21 18:40 07/19/21 06:00 07/19/21 08:00 07/20/21 05:45 Urine Collection Type Unknown Urine Color (Auto) Yellow Urine Turbidity Clear Urine pH (Auto) 5.5 (<5.0-8.0) Urine Specific [place] 1.026 (1.000-1.030) Urine Protein (Auto) 50 mg/dL (Negative) Urine Glucose (Auto)(UA) Negative mg/dL (Negative) Urine Ketones (Auto) Negative mg/dL (Negative) Urine Blood (Auto) Small (Negative) Urine Nitrite Negative (Negative) Urine Bilirubin (Auto) Negative (Negative) Urine Urobilinogen (Auto) Normal mg/dL (Normal) Urine Leukocyte Esterase (Auto) Negative (Negative) Urine RBC 1-2 /HPF (0-2) Urine WBC 0 /HPF (0-4) Urine Bacteria 0 /HPF (0-FEW) Urine Hyaline Casts Few /HPF Urine Mucus Slight /LPF White Blood Count 19.6 x10^3/uL (4.0-11.0) 18.2 x10^3/uL (4.0-11.0) Red Blood Count 3.93 x10^6/uL (4.30-5.70) 3.73 x10^6/uL (4.30-5.70) Hemoglobin 11.3 g/dL (13.0-17.5) 10.8 g/dL (13.0-17.5) Hematocrit 33.7 % (39.0-53.0) 31.9 % (39.0-53.0) Mean Corpuscular Volume 86 fL (79-100) 85 fL (79-100) Mean Corpuscular Hemoglobin 29 pg (25-35) 29 pg (25-35) Mean Corpuscular Hemoglobin Concent 34 g/dL (31-37) 34 g/dL (31-37) Red Cell Distribution Width 15.8 % (11.5-14.5) 15.4 % (11.5-14.5) Platelet Count 381 x10^3/uL (140-400) 381 x10^3/uL (140-400) Neutrophils (%) (Auto) 89 % (31-73) 88 % (31-73) Lymphocytes (%) (Auto) 4 % (24-48) 4 % (24-48) Monocytes (%) (Auto) 8 % (0-9) 7 % (0-9) Eosinophils (%) (Auto) 0 % (0-3) 0 % (0-3) Basophils (%) (Auto) 0 % (0-3) 0 % (0-3) Neutrophils # (Auto) 17.4 x10^3/uL (1.8-7.7) 16.1 x10^3/uL (1.8-7.7) Lymphocytes # (Auto) 0.7 x10^3/uL (1.0-4.8) 0.8 x10^3/uL (1.0-4.8) Monocytes # (Auto) 1.5 x10^3/uL (0.0-1.1) 1.3 x10^3/uL (0.0-1.1) Eosinophils # (Auto) 0.0 x10^3/uL (0.0-0.7) 0.0 x10^3/uL (0.0-0.7) Basophils # (Auto) 0.0 x10^3/uL (0.0-0.2) 0.0 x10^3/uL (0.0-0.2) Sodium Level 146 mmol/L (136-145) 147 mmol/L (136-145) Potassium Level 4.0 mmol/L (3.5-5.1) 3.9 mmol/L (3.5-5.1) Chloride Level 115 mmol/L (98-107) 116 mmol/L (98-107) Carbon Dioxide Level 21 mmol/L (21-32) 23 mmol/L (21-32) Anion Gap 10 (6-14) 8 (6-14) Blood Urea Nitrogen 61 mg/dL (8-26) 57 mg/dL (8-26) Creatinine 1.4 mg/dL (0.7-1.3) 1.2 mg/dL (0.7-1.3) Estimated GFR (Cockcroft-Gault) 48.2 57.5 BUN/Creatinine Ratio 44 (6-20) Glucose Level 144 mg/dL (70-99) 126 mg/dL (70-99) Calcium Level 7.8 mg/dL (8.5-10.1) 7.3 mg/dL (8.5-10.1) Total Bilirubin 1.5 mg/dL (0.2-1.0) Aspartate Amino Transf (AST/SGOT) 133 U/L (15-37) Alanine Aminotransferase (ALT/SGPT) 100 U/L (16-63) Alkaline Phosphatase 178 U/L (46-116) Creatine Kinase 36 U/L (39-308) Total Protein 5.1 g/dL (6.4-8.2) Albumin 1.0 g/dL (3.4-5.0) Albumin/Globulin Ratio 0.2 (1.0-1.7) O2 Saturation 98 % (92-99) Arterial Blood pH 7.46 (7.35-7.45) Arterial Blood pH (Temp corrected) 7.45 Arterial Blood pCO2 at Patient Temp 27 mmHg (35-46) Arterial Blood pCO2 (Temp correct) 28 mmHg Arterial Blood pO2 at Patient Temp 112 mmHg (65-108) Arterial Blood pO2 (Temp corrected) 117 mmHg Arterial Blood HCO3 19 mmol/L (21-28) Arterial Blood Base Excess -4 mmol/L (-3-3) FiO2 40 Segmented Neutrophils % 89 % (35-66) Band Neutrophils % 2 % (0-9) Lymphocytes % 5 % (24-48) Atypical Lymphocytes % (Manual) 2 % (0-0) Monocytes % 2 % (0-10) Platelet Estimate Adequate (ADEQUATE) Phosphorus Level 3.3 mg/dL (2.6-4.7) Magnesium Level 2.4 mg/dL (1.8-2.4) Triglycerides Level 168 mg/dL (0-150) Laboratory Tests Test 07/20/21 05:45 White Blood Count 18.2 x10^3/uL (4.0-11.0) Red Blood Count 3.73 x10^6/uL (4.30-5.70) Hemoglobin 10.8 g/dL (13.0-17.5) Hematocrit 31.9 % (39.0-53.0) Mean Corpuscular Volume 85 fL (79-100) Mean Corpuscular Hemoglobin 29 pg (25-35) Mean Corpuscular Hemoglobin Concent 34 g/dL (31-37) Red Cell Distribution Width 15.4 % (11.5-14.5) Platelet Count 381 x10^3/uL (140-400) Neutrophils (%) (Auto) 88 % (31-73) Lymphocytes (%) (Auto) 4 % (24-48) Monocytes (%) (Auto) 7 % (0-9) Eosinophils (%) (Auto) 0 % (0-3) Basophils (%) (Auto) 0 % (0-3) Neutrophils # (Auto) 16.1 x10^3/uL (1.8-7.7) Lymphocytes # (Auto) 0.8 x10^3/uL (1.0-4.8) Monocytes # (Auto) 1.3 x10^3/uL (0.0-1.1) Eosinophils # (Auto) 0.0 x10^3/uL (0.0-0.7) Basophils # (Auto) 0.0 x10^3/uL (0.0-0.2) Segmented Neutrophils % 89 % (35-66) Band Neutrophils % 2 % (0-9) Lymphocytes % 5 % (24-48) Atypical Lymphocytes % (Manual) 2 % (0-0) Monocytes % 2 % (0-10) Platelet Estimate Adequate (ADEQUATE) Sodium Level 147 mmol/L (136-145) Potassium Level 3.9 mmol/L (3.5-5.1) Chloride Level 116 mmol/L (98-107) Carbon Dioxide Level 23 mmol/L (21-32) Anion Gap 8 (6-14) Blood Urea Nitrogen 57 mg/dL (8-26) Creatinine 1.2 mg/dL (0.7-1.3) Estimated GFR (Cockcroft-Gault) 57.5 Glucose Level 126 mg/dL (70-99) Calcium Level 7.3 mg/dL (8.5-10.1) Phosphorus Level 3.3 mg/dL (2.6-4.7) Magnesium Level 2.4 mg/dL (1.8-2.4) Triglycerides Level 168 mg/dL (0-150) Assessment/Plan will review CT with Dr Medina Justicifation of Admission Dx: Justifications for Admission: Justification of Admission Dx: Yes Sepsis: Hemodynamic Instability KOURTNEY [employer] July 20, 2021 09:09
--- NOTE | 2021-07-20 09:31 | PDOC ---
DATE OF SERVICE DATE: 07/20/21 TIME: 09:31 SUBJECTIVE ROS Intubated, on vent. Off sedation, waking up, following commands per nursing OBJECTIVE Vital Signs Vital Signs Date Time Temp Pulse Resp B/P (MAP) Pulse Ox O2 Delivery O2 Flow Rate FiO2 07/20/21 09:15 99 Ventilator 07/20/21 09:00 101 32 140/71 07/20/21 08:00 98.4 98.4 I & 0 Intake and Output 07/20/21 07:00 Intake Total 1827 ml Output Total 1185 ml Balance 642 ml IV Total 1797 ml Other 30 ml Output Urine Total 1125 ml Drainage Total 60 ml # Bowel Movements 2 PHYSICAL EXAM Physical Exam GENERAL: orally intubated HEENT: Both pupils are round and reacting. orally intubated. NECK: Supple, no JVP, LUNGS: Clear. Decreased breath sounds. HEART: S1, S2 regular. No gallop or murmur. ABDOMEN: Multiple tubes in the post-surgical dressing EXTREMITIES: No edema, cyanosis. SKIN: Unremarkable. NEUROLOGIC: sedated and intubated. Carreno + DIAGNOSIS/ASSESSMENT Assessment & Plan SHELDON-- ATN/ Hypotensive/Bowel perf . UA unremarkable , CT scan No e/o BALLARD/Hydronephrosis , Renal function stable E-Lytes stable . Supportive care,maintain fluid balance, avoid Nephrotoxins SHELDON in 2018, resolved. No Interval labs available HyperNatremia- mild- Needs free water, adjust Na in TPN Persistent encephalopathyCould be hepatic encephalopathy as well as sepsis contributing as well Cannot exclude the possibly of metastatic melanoma to the brain. Renal Calculus 5 mm nonobstructing calculus is seen involving the lower pole of the right kidney. Perforated viscus, status post exploratory laparotomy, reduction of gastric volvulus, hiatal hernia repair, gastrostomy tube placement and duodenoscopy with tube placement done. 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 CT chest/Abdomen Redemonstration of numerous metastatic disease in the lungs and throughout the abdomen. Acute Respiratory failure, requiring ventilatory support. History of prostate cancer. HypoPhos- Normal ; Adjust in TPN as indicated Nutrition- On TPN COMMENT/RELEVANT DATA Meds Current Medications Medications (Trade) Dose Ordered Sig/Armin Start Time Stop Time Status Last Admin Dose Admin Albumin Human 500 ml @ 125 mls/hr 1X ONCE 07/12/21 12:45 07/12/21 16:44 DC Cefoxitin Sodium (Mefoxin) 1 gm Q6H 07/12/21 14:00 07/13/21 02:01 DC 07/13/21 01:47 1 GM Ceftriaxone Sodium (Rocephin) 2 gm Q24H 07/12/21 07:00 07/13/21 09:46 DC 07/13/21 06:30 2 GM Daptomycin 450 mg/ Sodium Chloride 50 ml @ 100 mls/hr Q24H 07/18/21 20:00 07/19/21 20:45 100 MLS/HR Dexamethasone Sodium Phosphate (Decadron) 4 mg STK-MED ONCE 07/12/21 07:43 07/12/21 07:44 DC Digoxin (Lanoxin) 500 mcg 1X ONCE 07/14/21 04:30 07/14/21 04:31 DC 07/14/21 04:40 500 MCG Enoxaparin Sodium (Lovenox 30mg Syringe) 30 mg Q24H 07/12/21 21:00 07/16/21 09:07 DC 07/15/21 21:04 30 MG Enoxaparin Sodium (Lovenox 40mg Syringe) 40 mg Q24H 07/16/21 21:00 07/19/21 20:48 40 MG Ephedrine Sulfate (ePHEDrine PF IN SALINE SYRINGE) 50 mg STK-MED ONCE 07/12/21 10:27 07/12/21 10:27 DC Etomidate (Amidate) 20 mg STK-MED ONCE 07/12/21 08:30 07/12/21 08:30 DC Famotidine (Pepcid Vial) 20 mg QHS 07/12/21 21:00 07/19/21 20:48 20 MG Fentanyl Citrate (Fentanyl 2ml Vial) 25 mcg PRN Q1HR PRN 07/16/21 19:30 07/17/21 20:21 25 MCG Furosemide (Lasix) 40 mg 1X ONCE 07/17/21 11:45 07/17/21 11:46 DC 07/17/21 12:28 40 MG Glycerin/ Hypromellose/ Polyethylene (Artificial Tears) 1 drop PRN Q1HR PRN 07/12/21 12:45 Glycopyrrolate (Robinul) 1 mg STK-MED ONCE 07/12/21 07:45 07/12/21 07:45 DC Hydromorphone HCl (Dilaudid) 0.5 mg PRN Q10MIN PRN 07/12/21 08:00 07/13/21 07:59 DC Info (Tpn Per Pharmacy) 1 each PRN DAILY PRN 07/15/21 10:30 07/20/21 08:14 1 EACH Labetalol HCl (Normodyne Iv Push) 10 mg PRN Q4HRS PRN 07/17/21 09:15 Linezolid/Dextrose 300 ml @ 300 mls/hr Q12HR 07/19/21 14:00 07/20/21 08:34 300 MLS/HR Magnesium Sulfate 50 ml @ 25 mls/hr 1X ONCE 07/14/21 12:30 07/14/21 14:29 DC 07/14/21 15:22 25 MLS/HR Meropenem 500 mg/ Sodium Chloride 50 ml @ 100 mls/hr Q8HRS 07/18/21 22:00 07/20/21 05:56 100 MLS/HR Metronidazole 100 ml @ 100 mls/hr Q8HRS 07/12/21 14:00 07/13/21 09:46 DC 07/13/21 06:15 100 MLS/HR Midazolam HCl 100 ml @ 1 mls/hr CONT PRN 07/12/21 12:45 07/16/21 19:27 DC 07/12/21 16:55 1 MLS/HR Midazolam HCl (Versed) 2 mg STK-MED ONCE 07/12/21 07:44 07/12/21 07:44 DC Morphine Sulfate (Morphine Sulfate) 1 mg PRN Q1HR PRN 07/12/21 12:15 07/12/21 13:51 DC Naloxone HCl (Narcan) 0.4 mg PRN Q2MIN PRN 07/12/21 12:15 Neostigmine Donnelly (Neostigmine Methylsulfate) 5 mg STK-MED ONCE 07/12/21 07:44 07/12/21 07:44 DC Norepinephrine Bitartrate 32 mg/ Dextrose 250 ml @ 3.192 mls/ hr CONT PRN 07/15/21 03:30 07/15/21 04:15 15.961 MLS/HR Norepinephrine Bitartrate 8 mg/ Dextrose 258 ml @ 11.204 mls/ hr CONT PRN 07/12/21 13:45 07/15/21 03:14 DC 07/14/21 23:22 56.018 MLS/HR Ondansetron HCl (Zofran) 4 mg PRN Q6HRS PRN 07/12/21 12:15 Phenylephrine HCl (Lionel-Synephrine Inj) 10 mg STK-MED ONCE 07/12/21 11:54 07/12/21 11:55 DC Phenylephrine HCl (PHENYLEPHRINE in 0.9% NACL PF) 1 mg STK-MED ONCE 07/12/21 10:27 07/12/21 10:27 DC Piperacillin Sod/ Tazobactam Sod 2.25 gm/Sodium Chloride 50 ml @ 100 mls/hr Q6HRS 07/13/21 12:00 07/18/21 18:02 DC 07/18/21 17:10 100 MLS/HR Potassium Phosphate 15 mmol/ Sodium Chloride 105 ml @ 52.5 mls/hr 1X ONCE 07/17/21 12:00 07/17/21 13:59 DC 07/17/21 12:32 52.5 MLS/HR Prochlorperazine Edisylate (Compazine) 5 mg PACU PRN PRN 07/12/21 08:00 07/13/21 07:59 DC Propofol (Diprivan) 1,000 mg STK-MED ONCE 07/12/21 13:00 07/13/21 12:22 DC Ringer's Solution 1,000 ml @ 100 mls/hr Q10H 07/12/21 12:15 07/13/21 19:33 DC 07/13/21 10:39 100 MLS/HR Rocuronium Donnelly (Zemuron) 100 mg STK-MED ONCE 07/12/21 09:34 07/12/21 09:34 DC Sevoflurane (Ultane) 60 ml STK-MED ONCE 07/12/21 21:15 07/12/21 21:15 DC Sodium Bicarbonate 150 meq/Dextrose 1,150 ml @ 75 mls/hr [id number] 07/12/21 14:30 07/13/21 19:34 DC 07/13/21 05:37 75 MLS/HR Sodium Acetate 70 meq/Potassium Chloride 50 meq/ Potassium Phosphate 22 mmol/ Magnesium Sulfate 8 meq/ Multivitamins 10 ml/Zinc/Copper/ Manganese/ Selenium 1 ml/ Total Parenteral Nutrition/Amino Acids/Dextrose/ Fat Emulsion Intravenous 1,512 ml @ 63 mls/hr TPN CONT 07/18/21 22:00 07/19/21 21:59 DC 07/18/21 21:44 63 MLS/HR Sodium Bicarbonate (Sodium Bicarb Adult 8.4% Syr) 50 meq STK-MED ONCE 07/12/21 21:15 07/12/21 21:15 DC Sodium Chloride (Normal Saline Flush) 3 ml QSHIFT PRN 07/12/21 12:15 Sodium Chloride 40 meq/Potassium Acetate 50 meq/ Potassium Phosphate 22 mmol/ Magnesium Sulfate 6 meq/ Multivitamins 10 ml/Zinc/Copper/ Manganese/ Selenium 1 ml/ Total Parenteral Nutrition/Amino Acids/Dextrose/ Fat Emulsion Intravenous 1,680 ml @ 70 mls/hr TPN CONT 07/20/21 22:00 07/21/21 21:59 Sodium Chloride 40 meq/Potassium Acetate 50 meq/ Potassium Phosphate 22 mmol/ Magnesium Sulfate 8 meq/ Multivitamins 10 ml/Zinc/Copper/ Manganese/ Selenium 1 ml/ Total Parenteral Nutrition/Amino Acids/Dextrose/ Fat Emulsion Intravenous 1,680 ml @ 70 mls/hr TPN CONT 07/19/21 22:00 07/20/21 21:59 07/19/21 21:40 70 MLS/HR Sodium Chloride 70 meq/Potassium Chloride 50 meq/ Potassium Phosphate 20 mmol/ Magnesium Sulfate 10 meq/ Multivitamins 10 ml/Zinc/Copper/ Manganese/ Selenium 1 ml/ Total Parenteral Nutrition/Amino Acids/Dextrose/ Fat Emulsion Intravenous 1,512 ml @ 63 mls/hr TPN CONT 07/16/21 22:00 07/17/21 21:59 DC 07/16/21 21:38 63 MLS/HR Sodium Chloride 70 meq/Potassium Chloride 50 meq/ Potassium Phosphate 25 mmol/ Magnesium Sulfate 10 meq/ Multivitamins 10 ml/Zinc/Copper/ Manganese/ Selenium 1 ml/ Total Parenteral Nutrition/Amino Acids/Dextrose/ Fat Emulsion Intravenous 1,512 ml @ 63 mls/hr TPN CONT 07/17/21 22:00 07/18/21 21:59 DC 07/17/21 20:22 63 MLS/HR Sodium Chloride 90 meq/Potassium Chloride 50 meq/ Potassium Phosphate 13.6 mmol/Magnesium Sulfate 10 meq/ Multivitamins 10 ml/Zinc/Copper/ Manganese/ Selenium 1 ml/ Total Parenteral Nutrition/Amino Acids/Dextrose/ Fat Emulsion Intravenous 1,512 ml @ 63 mls/hr TPN CONT 07/15/21 22:00 07/16/21 21:59 DC 07/15/21 22:05 63 MLS/HR Succinylcholine Chloride (Anectine) 200 mg STK-MED ONCE 07/12/21 07:44 07/12/21 07:44 DC Lab Laboratory Tests Test 07/20/21 05:45 White Blood Count 18.2 x10^3/uL (4.0-11.0) Red Blood Count 3.73 x10^6/uL (4.30-5.70) Hemoglobin 10.8 g/dL (13.0-17.5) Hematocrit 31.9 % (39.0-53.0) Mean Corpuscular Volume 85 fL (79-100) Mean Corpuscular Hemoglobin 29 pg (25-35) Mean Corpuscular Hemoglobin Concent 34 g/dL (31-37) Red Cell Distribution Width 15.4 % (11.5-14.5) Platelet Count 381 x10^3/uL (140-400) Neutrophils (%) (Auto) 88 % (31-73) Lymphocytes (%) (Auto) 4 % (24-48) Monocytes (%) (Auto) 7 % (0-9) Eosinophils (%) (Auto) 0 % (0-3) Basophils (%) (Auto) 0 % (0-3) Neutrophils # (Auto) 16.1 x10^3/uL (1.8-7.7) Lymphocytes # (Auto) 0.8 x10^3/uL (1.0-4.8) Monocytes # (Auto) 1.3 x10^3/uL (0.0-1.1) Eosinophils # (Auto) 0.0 x10^3/uL (0.0-0.7) Basophils # (Auto) 0.0 x10^3/uL (0.0-0.2) Segmented Neutrophils % 89 % (35-66) Band Neutrophils % 2 % (0-9) Lymphocytes % 5 % (24-48) Atypical Lymphocytes % (Manual) 2 % (0-0) Monocytes % 2 % (0-10) Platelet Estimate Adequate (ADEQUATE) Sodium Level 147 mmol/L (136-145) Potassium Level 3.9 mmol/L (3.5-5.1) Chloride Level 116 mmol/L (98-107) Carbon Dioxide Level 23 mmol/L (21-32) Anion Gap 8 (6-14) Blood Urea Nitrogen 57 mg/dL (8-26) Creatinine 1.2 mg/dL (0.7-1.3) Estimated GFR (Cockcroft-Gault) 57.5 Glucose Level 126 mg/dL (70-99) Calcium Level 7.3 mg/dL (8.5-10.1) Phosphorus Level 3.3 mg/dL (2.6-4.7) Magnesium Level 2.4 mg/dL (1.8-2.4) Triglycerides Level 168 mg/dL (0-150) Results All relevant outside records, renal labs, imaging studies, telemetry/EKG's were reviewed. Justicifation of Admission Dx: Justifications for Admission: Justification of Admission Dx: Yes Sepsis: Hemodynamic Instability JENNIE MOODY MD July 20, 2021 09:31
--- NOTE | 2021-07-20 09:56 | PDOC ---
PULMONARY PROGRESS NOTES DATE: 07/20/21 TIME: 09:51 Subjective Patient is off Versed for several days. Patient is now following some commands. Moves his head to commands. Remains on assist control mode, 40% FiO2 Fever curve improving. Vitals Vital Signs Date Time Temp Pulse Resp B/P (MAP) Pulse Ox O2 Delivery O2 Flow Rate FiO2 07/20/21 09:15 99 Ventilator 07/20/21 09:00 101 32 140/71 07/20/21 08:00 98.4 98.4 Lungs: Clear Cardiovascular: S1, S2 Abdomen: Soft, Other (Distended) Extremities: Other (Significant scrotal edema.) Skin: Warm Labs Laboratory Tests Test 07/18/21 18:40 07/19/21 06:00 07/19/21 08:00 07/20/21 05:45 Urine Collection Type Unknown Urine Color (Auto) Yellow Urine Turbidity Clear Urine pH (Auto) 5.5 (<5.0-8.0) Urine Specific [place] 1.026 (1.000-1.030) Urine Protein (Auto) 50 mg/dL (Negative) Urine Glucose (Auto)(UA) Negative mg/dL (Negative) Urine Ketones (Auto) Negative mg/dL (Negative) Urine Blood (Auto) Small (Negative) Urine Nitrite Negative (Negative) Urine Bilirubin (Auto) Negative (Negative) Urine Urobilinogen (Auto) Normal mg/dL (Normal) Urine Leukocyte Esterase (Auto) Negative (Negative) Urine RBC 1-2 /HPF (0-2) Urine WBC 0 /HPF (0-4) Urine Bacteria 0 /HPF (0-FEW) Urine Hyaline Casts Few /HPF Urine Mucus Slight /LPF White Blood Count 19.6 x10^3/uL (4.0-11.0) 18.2 x10^3/uL (4.0-11.0) Red Blood Count 3.93 x10^6/uL (4.30-5.70) 3.73 x10^6/uL (4.30-5.70) Hemoglobin 11.3 g/dL (13.0-17.5) 10.8 g/dL (13.0-17.5) Hematocrit 33.7 % (39.0-53.0) 31.9 % (39.0-53.0) Mean Corpuscular Volume 86 fL (79-100) 85 fL (79-100) Mean Corpuscular Hemoglobin 29 pg (25-35) 29 pg (25-35) Mean Corpuscular Hemoglobin Concent 34 g/dL (31-37) 34 g/dL (31-37) Red Cell Distribution Width 15.8 % (11.5-14.5) 15.4 % (11.5-14.5) Platelet Count 381 x10^3/uL (140-400) 381 x10^3/uL (140-400) Neutrophils (%) (Auto) 89 % (31-73) 88 % (31-73) Lymphocytes (%) (Auto) 4 % (24-48) 4 % (24-48) Monocytes (%) (Auto) 8 % (0-9) 7 % (0-9) Eosinophils (%) (Auto) 0 % (0-3) 0 % (0-3) Basophils (%) (Auto) 0 % (0-3) 0 % (0-3) Neutrophils # (Auto) 17.4 x10^3/uL (1.8-7.7) 16.1 x10^3/uL (1.8-7.7) Lymphocytes # (Auto) 0.7 x10^3/uL (1.0-4.8) 0.8 x10^3/uL (1.0-4.8) Monocytes # (Auto) 1.5 x10^3/uL (0.0-1.1) 1.3 x10^3/uL (0.0-1.1) Eosinophils # (Auto) 0.0 x10^3/uL (0.0-0.7) 0.0 x10^3/uL (0.0-0.7) Basophils # (Auto) 0.0 x10^3/uL (0.0-0.2) 0.0 x10^3/uL (0.0-0.2) Sodium Level 146 mmol/L (136-145) 147 mmol/L (136-145) Potassium Level 4.0 mmol/L (3.5-5.1) 3.9 mmol/L (3.5-5.1) Chloride Level 115 mmol/L (98-107) 116 mmol/L (98-107) Carbon Dioxide Level 21 mmol/L (21-32) 23 mmol/L (21-32) Anion Gap 10 (6-14) 8 (6-14) Blood Urea Nitrogen 61 mg/dL (8-26) 57 mg/dL (8-26) Creatinine 1.4 mg/dL (0.7-1.3) 1.2 mg/dL (0.7-1.3) Estimated GFR (Cockcroft-Gault) 48.2 57.5 BUN/Creatinine Ratio 44 (6-20) Glucose Level 144 mg/dL (70-99) 126 mg/dL (70-99) Calcium Level 7.8 mg/dL (8.5-10.1) 7.3 mg/dL (8.5-10.1) Total Bilirubin 1.5 mg/dL (0.2-1.0) Aspartate Amino Transf (AST/SGOT) 133 U/L (15-37) Alanine Aminotransferase (ALT/SGPT) 100 U/L (16-63) Alkaline Phosphatase 178 U/L (46-116) Creatine Kinase 36 U/L (39-308) Total Protein 5.1 g/dL (6.4-8.2) Albumin 1.0 g/dL (3.4-5.0) Albumin/Globulin Ratio 0.2 (1.0-1.7) O2 Saturation 98 % (92-99) Arterial Blood pH 7.46 (7.35-7.45) Arterial Blood pH (Temp corrected) 7.45 Arterial Blood pCO2 at Patient Temp 27 mmHg (35-46) Arterial Blood pCO2 (Temp correct) 28 mmHg Arterial Blood pO2 at Patient Temp 112 mmHg (65-108) Arterial Blood pO2 (Temp corrected) 117 mmHg Arterial Blood HCO3 19 mmol/L (21-28) Arterial Blood Base Excess -4 mmol/L (-3-3) FiO2 40 Segmented Neutrophils % 89 % (35-66) Band Neutrophils % 2 % (0-9) Lymphocytes % 5 % (24-48) Atypical Lymphocytes % (Manual) 2 % (0-0) Monocytes % 2 % (0-10) Platelet Estimate Adequate (ADEQUATE) Phosphorus Level 3.3 mg/dL (2.6-4.7) Magnesium Level 2.4 mg/dL (1.8-2.4) Triglycerides Level 168 mg/dL (0-150) Laboratory Tests Test 07/20/21 05:45 White Blood Count 18.2 x10^3/uL (4.0-11.0) Red Blood Count 3.73 x10^6/uL (4.30-5.70) Hemoglobin 10.8 g/dL (13.0-17.5) Hematocrit 31.9 % (39.0-53.0) Mean Corpuscular Volume 85 fL (79-100) Mean Corpuscular Hemoglobin 29 pg (25-35) Mean Corpuscular Hemoglobin Concent 34 g/dL (31-37) Red Cell Distribution Width 15.4 % (11.5-14.5) Platelet Count 381 x10^3/uL (140-400) Neutrophils (%) (Auto) 88 % (31-73) Lymphocytes (%) (Auto) 4 % (24-48) Monocytes (%) (Auto) 7 % (0-9) Eosinophils (%) (Auto) 0 % (0-3) Basophils (%) (Auto) 0 % (0-3) Neutrophils # (Auto) 16.1 x10^3/uL (1.8-7.7) Lymphocytes # (Auto) 0.8 x10^3/uL (1.0-4.8) Monocytes # (Auto) 1.3 x10^3/uL (0.0-1.1) Eosinophils # (Auto) 0.0 x10^3/uL (0.0-0.7) Basophils # (Auto) 0.0 x10^3/uL (0.0-0.2) Segmented Neutrophils % 89 % (35-66) Band Neutrophils % 2 % (0-9) Lymphocytes % 5 % (24-48) Atypical Lymphocytes % (Manual) 2 % (0-0) Monocytes % 2 % (0-10) Platelet Estimate Adequate (ADEQUATE) Sodium Level 147 mmol/L (136-145) Potassium Level 3.9 mmol/L (3.5-5.1) Chloride Level 116 mmol/L (98-107) Carbon Dioxide Level 23 mmol/L (21-32) Anion Gap 8 (6-14) Blood Urea Nitrogen 57 mg/dL (8-26) Creatinine 1.2 mg/dL (0.7-1.3) Estimated GFR (Cockcroft-Gault) 57.5 Glucose Level 126 mg/dL (70-99) Calcium Level 7.3 mg/dL (8.5-10.1) Phosphorus Level 3.3 mg/dL (2.6-4.7) Magnesium Level 2.4 mg/dL (1.8-2.4) Triglycerides Level 168 mg/dL (0-150) Medications Active Scripts Medications Dose Route/Sig Max Daily Dose Days Date Category [Pantoprazole] 40 MG Tablet.dr 40 Mg PO BIDBFRMEAL 06/22/17 Rx Carafate (Sucralfate) 1 Gm/10 Ml Oral.susp 1 Gm PO TIDBFRMEAL 06/22/17 Rx Avalide 150-12.5 Mg Tablet (Irbesartan/Hydrochlorothiazide) 1 Each Tablet 1 Each PO DAILY 06/19/[address] chest dated 07/19/2021 reviewed. Bilateral lung nodules consistent with metastatic disease. Mild to moderate bilateral pleural effusions with associated compressive atelectasis. Chest x-ray reviewed 07/17/2021. Mild progression of interstitial infiltrates and pleural effusion consistent with CHF. There is a skinfold on the left apex unlikely pneumothorax. Impression . Acute respiratory failure multifactorial status post exploratory laparotomy for perforated viscus Septic shock. Resolved. Off Levophed. fevers. CT abdomen with fluid collection close to the left hepatic lobe. Could be the source of infection. Antibiotics broadened by infectious disease. Fever curve improving. Acute renal failure. History of prostate cancer Severe protein malnutrition present upon admission. 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 Bilateral lung nodules suggestive of metastasis to the lungs. Bilateral moderate pleural effusions with associated atelectasis related to low oncotic pressure. CT chest reviewed dated 07/19/2021 Encephalopathy, post sedation induced. No evidence of metastatic disease on CT head. Clinically improving. Abnormal liver function test. \ Plan . Continue present assist-control mode. Oxygen requirement is stable. We will start CPAP trials daily to improve exercise capacity of respiratory muscles. Not ready for extubation. fentanyl , use as needed. CT head with no evidence of metastatic disease to the brain. Await surgical input regarding IR consult for possible drain in abnormal fluid collection in the abdomen. Continue as needed Lasix. Pleural effusion can be monitored. No need for drainage at present. off Levophed. Keep mean arterial pressure above 60. Empiric broad-spectrum antibiotics per infectious disease. Follow-up on cultures. No new cultures. Final pathology from the bowel surgery consistent with metastatic melanoma. Oncology consulted. Discussed with son in detail at the bedside. I informed him that I have initiated CPAP trials. He is very weak. He may end up with with a tracheostomy to help facilitate weaning. We will keep him posted. Discussed with RN and RT. addend: d/w Dr Fonseca. OK to consult IR. I have also informed him that he may need Tracheostomy if no improvement in next few days. Critical care time 30 minutes. YASMIN WEAVER MD July 20, 2021 09:56
--- NOTE | 2021-07-20 11:03 | NUR ---
Wound/Ostomy Care Wound Type/Assessment: Wound consult for pressure ulcer to coccyx. Pt has DTI that is not improving to coccyx. Cleansed area, painted with skin prep and covered with foam dressing. Pt is intubated at this time. Treatment Recommendations/Plan: [place] with skin prep and cover with foam. Change every 3 days and PRN. Education provided: Pt unable to be educated d/t mental status Offloading surface/device: [id number]. ICU bed, float heels Recommended Referrals/Tests: NA Discharge Recommendations for dressings: see above
--- NOTE | 2021-07-20 11:08 | PN ---
DATE: 07/20/2021 SUBJECTIVE: The patient is resting, slightly propped up in bed, no apparent distress. He continued to be off sedation. Continued to be intubated and mechanically ventilated. He is on TPN and on linezolid, meropenem and daptomycin. PHYSICAL EXAMINATION: GENERAL: When I examined him, he looked pale, not jaundiced or cyanosed, no lymphadenopathy, no thyromegaly, no jugular venous distention. No lower limb edema. VITAL SIGNS: His heart rate was 101, blood pressure was 140/71, temperature 98.4, respiratory rate was 32 and oxygen saturation was 100% on FiO2 of 40%. HEAD, EYES, EARS, NOSE, AND THROAT: Normocephalic, atraumatic. NECK: Supple. HEART: Showed normal first and second heart sounds. No gallop, rub or murmur. CHEST: Clear to auscultation, no crepitation or rhonchi. ABDOMEN: Scaphoid, slightly distended, soft, nontender. He has a gastrostomy tube in place as well as a jejunostomy. Midline incision covered with dressing. NEUROLOGIC: He does open his eyes and tracks, but does not follow command. He has an indwelling Carreno catheter. His intake was 883, output was 1375. LABORATORY DATA: His lab work this morning showed a white cell count of 18.2, hemoglobin 10.8, hematocrit 32, MCV 85 and platelet count 381,000 with a manual differential showed 88% polymorphs, 4% lymphocytes and 2% monocytes. Serum sodium was 147, potassium 3.9, chloride 116, bicarbonate 23, anion gap of 8, BUN 57, creatinine 1.2. Estimated GFR was 57 mL per minute. His glucose 126, calcium was 7.3. Phosphorus 3.3 and magnesium was 2.4. He apparently has had a CT scan of the head showed no acute intracranial abnormalities seen. The CT scan of the chest, abdomen and pelvis showed that the patient has interval postsurgical changes, hiatal hernia repair. The stomach is now seen within the abdominal cavity; however, there is a diffuse gastric wall thickening, which is likely reactive. ASSESSMENT: For gastroenteritis ill-defined loculated fluid collection containing gas in the anterior upper abdomen, anterior to the left hepatic lobe measuring up to 8.5 x 2.2 cm finding likely related to postsurgical changes, superimposed infection cannot be excluded. Recommend Interventional Radiology consultation for possible drainage. There is redemonstration of numerous metastatic disease in the lungs and throughout the abdomen, moderate bilateral pleural effusion with associated atelectatic changes, knew since prior exam previously seen. Hepatic lesions are not appreciated on the current exam. Other chronic incidental findings as described. The patient has small abdominopelvic ascites with diffuse mesenteric abdomen edema. There is no lymphadenopathy in the abdomen and pelvis by size criteria. He has numerous metastatic implants throughout the abdomen such as adjacent to the left kidney. There is no acute osseous process suspicious lesion, does have a nondisplaced fracture along the anterolateral left sixth and seventh rib. Diffuse anasarca. PLAN: The plan is obviously to continue with intubation and mechanical ventilation. Continue with IV antibiotic. Continue with nutritional support. The patient was seen by the neurologist. The impression is the patient has metabolic encephalopathy and may have some anoxia and given his improvement, he recommended to hold off on any additional studies such as electroencephalogram and brain MRI. EMIR DR: Marta TID: [id number]
--- NOTE | 2021-07-20 12:01 | PDOC ---
Infectious Disease Note Subjective: Subjective Pt is intubated on vent Startles to verbal stimuli Fever pattern improved Vital Signs: Vital Signs Vital Signs Date Time Temp Pulse Resp B/P (MAP) Pulse Ox O2 Delivery O2 Flow Rate FiO2 07/20/21 11:40 Ventilator 07/20/21 11:36 97 07/20/21 11:00 102 32 134/70 07/20/21 08:00 98.4 98.4 Physical Exam: PHYSICAL EXAM GENERAL: , [facility] HEENT: Both pupils are round and reacting. No conjunctival lesion. No lesion in the mouth. Mouth cannot be visualized much as orally intubated. LUNGS: . Decreased breath sounds. HEART: S1, S2 regular. No murmur. ABDOMEN: Multiple tubes in the post-surgical dressing not opened. scrotal swelling, conway in place EXTREMITIES: No edema, cyanosis. SKIN: No generalized rash NEUROLOGIC: opens eyes, trying to awaken Medications: Inpatient Meds: Medications reviewed. Labs: Lab Laboratory Tests Test 07/20/21 05:45 White Blood Count 18.2 x10^3/uL (4.0-11.0) Red Blood Count 3.73 x10^6/uL (4.30-5.70) Hemoglobin 10.8 g/dL (13.0-17.5) Hematocrit 31.9 % (39.0-53.0) Mean Corpuscular Volume 85 fL (79-100) Mean Corpuscular Hemoglobin 29 pg (25-35) Mean Corpuscular Hemoglobin Concent 34 g/dL (31-37) Red Cell Distribution Width 15.4 % (11.5-14.5) Platelet Count 381 x10^3/uL (140-400) Neutrophils (%) (Auto) 88 % (31-73) Lymphocytes (%) (Auto) 4 % (24-48) Monocytes (%) (Auto) 7 % (0-9) Eosinophils (%) (Auto) 0 % (0-3) Basophils (%) (Auto) 0 % (0-3) Neutrophils # (Auto) 16.1 x10^3/uL (1.8-7.7) Lymphocytes # (Auto) 0.8 x10^3/uL (1.0-4.8) Monocytes # (Auto) 1.3 x10^3/uL (0.0-1.1) Eosinophils # (Auto) 0.0 x10^3/uL (0.0-0.7) Basophils # (Auto) 0.0 x10^3/uL (0.0-0.2) Segmented Neutrophils % 89 % (35-66) Band Neutrophils % 2 % (0-9) Lymphocytes % 5 % (24-48) Atypical Lymphocytes % (Manual) 2 % (0-0) Monocytes % 2 % (0-10) Platelet Estimate Adequate (ADEQUATE) Sodium Level 147 mmol/L (136-145) Potassium Level 3.9 mmol/L (3.5-5.1) Chloride Level 116 mmol/L (98-107) Carbon Dioxide Level 23 mmol/L (21-32) Anion Gap 8 (6-14) Blood Urea Nitrogen 57 mg/dL (8-26) Creatinine 1.2 mg/dL (0.7-1.3) Estimated GFR (Cockcroft-Gault) 57.5 Glucose Level 126 mg/dL (70-99) Calcium Level 7.3 mg/dL (8.5-10.1) Phosphorus Level 3.3 mg/dL (2.6-4.7) Magnesium Level 2.4 mg/dL (1.8-2.4) Triglycerides Level 168 mg/dL (0-150) Objective: Assessment: 1. Perforated viscus, status post exploratory laparotomy, reduction of gastric volvulus, hiatal hernia repair, gastrostomy tube placement and duodenoscopy with tube placement done. 2. Hypotension, requiring vasopressor support. 3. Respiratory failure, requiring ventilatory support. 4. Renal failure. 5. History of prostate cancer. path + with melanoma 6. Pneumonia 7. CT abdomen and pelvis with intraabdominal fluid collection could be absceess Plan: Plan of Care Merrem and daptomycin and Zyvox Monitor labs and cultures F/U BC 07/18 CT C/A/P reviewed Gen surgery following May need IR drainage cont supportive care Critically ill Prognosis very poor consider palliative care Discussed with MARISOL LAYNE MD July 20, 2021 12:01
--- NOTE | 2021-07-20 16:08 | NUR ---
Dr. Phoenix evaluated CT Scan and discussed case with Dr. Medina, plan for now is to continue to monitor, will re-evaluate at a later date if necessary.
--- NOTE | 2021-07-20 17:00 | PDOC2 ---
CONSULT Date of Consult Date of Consult DATE: 07/20/21 TIME: 16:46 Reason for Consult Reason for Consult: Melanoma Referring Physician Referring Physician: Dr. Perez Identification/Chief Complaint Chief Complaint Abdominal pain Source Source: Caregiver, Chart review History of Present Illness Reason for Visit: Jossue Rubio is an 85-year-old male who has been admitted to [facility] with abdominal pain and found to have intestinal perforation. Patient was intubated and sedated at the time of my visit and history was obtained by review of chart, discussion with team and with the patient's son. Patient recently has had abdominal pain for the past 2 to 3 weeks. This had been worsening and he came into the hospital for further evaluation. He was found to have intestinal perforation and was taken to the operating room by Dr. Medina. The patient underwent exploratory laparotomy and intraoperatively, findings included pneumoperitoneum, large hiatal hernia with incarcerated gastric volvulus, stomach with ischemic changes, but became viable with reduction, perforated duodenal/pyloric channel ulcer, 1 cm; normal small bowel, colon, appendix, gallbladder, multiple dark purple masses throughout abdominal cavity, spleen and liver; EGD with retained fluid but no obvious masses. He underwent reduction of gastric volvulus, hiatal hernia repair. 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 He had duodenoscopy tube placement for perforated duodenal ulcer by EGD, umbilical hernia repair. Postoperatively, he has had acute respiratory failure requiring intubation and mechanical ventilation. He is also had recent onset leukocytosis and fever. ID consultation was requested and CT abdomen was obtained for further evaluation. This showed an ill-defined loculated fluid collection containing gas in the anterior upper abdomen anterior to the left hepatic lobe, measuring up to 8.5 x 2.2 cm. IR consult for drainage was recommended Biopsy of mesenteric mass showed multiple myeloma. Medical oncology consultation was requested for further recommendations Past Medical History Cardiovascular: HTN GI: Gastritis, Peptic Ulcer disease Rheumatologic: Rheumatoid arthritis Renal/: Prostate Ca. (suspect metastatic) Past Surgical History Past Surgical History: Hernia Repair Family History Family History: No Significant Social History No ALCOHOL: none Drugs: None Current Medications Current Medications Current Medications Ceftriaxone Sodium (Rocephin) 2 gm Q24H IVP Last administered on 07/13/21at 06:30; Start 07/12/21 at 07:00; Stop 07/13/21 at 09:46; Status DC Metronidazole 100 ml @ 100 mls/hr Q8HRS IV Last administered on 07/13/21at 06:15; Start 07/12/21 at 14:00; Stop 07/13/21 at 09:46; Status DC Morphine Sulfate (Morphine Sulfate) 4 mg PRN Q4HRS PRN IVP SEVERE PAIN 7-10 Last administered on 07/12/21at 06:59; Start 07/12/21 at 06:15; Stop 07/12/21 at 13:52; Status DC Ondansetron HCl (Zofran) 4 mg PRN Q4HRS PRN IVP NAUSEA/VOMITING 1ST CHOICE Last administered on 07/12/21at 07:02; Start 07/12/21 at 06:15; Stop 07/12/21 at 13:03; Status DC Sodium Chloride 1,000 ml @ 150 mls/hr Q6H40M IV Last administered on 07/16/21at 04:36; Start 07/12/21 at 06:15; Stop 07/16/21 at 10:01; Status DC Piperacillin Sod/ Tazobactam Sod 2.25 gm/Sodium Chloride 50 ml @ 100 mls/hr Q8HRS IV Last administered on 07/13/21at 05:37; Start 07/12/21 at 14:00; Stop 07/13/21 at 11:36; Status DC Propofol (Diprivan) 200 mg STK-MED ONCE IV ; Start 07/12/21 at 07:43; Stop 07/12/21 at 07:44; Status DC Ondansetron HCl (Zofran) 4 mg STK-MED ONCE .ROUTE ; Start 07/12/21 at 07:43; Stop 07/12/21 at 07:44; Status DC Dexamethasone Sodium Phosphate (Decadron) 4 mg STK-MED ONCE .ROUTE ; Start 07/12/21 at 07:43; Stop 07/12/21 at 07:44; Status DC Succinylcholine Chloride (Anectine) 200 mg STK-MED ONCE .ROUTE ; Start 07/12/21 at 07:44; Stop 07/12/21 at 07:44; Status DC Neostigmine [place] (Neostigmine Methylsulfate) 5 mg STK-MED ONCE .ROUTE ; Start 07/12/21 at 07:44; Stop 07/12/21 at 07:44; Status DC Rocuronium [place] (Zemuron) 50 mg STK-MED ONCE .ROUTE ; Start 07/12/21 at 07:44; Stop 07/12/21 at 07:44; Status DC Fentanyl Citrate (Fentanyl 2ml Vial) 100 mcg STK-MED ONCE .ROUTE ; Start 07/12/21 at 07:44; Stop 07/12/21 at 07:44; Status DC Midazolam HCl (Versed) 2 mg STK-MED ONCE .ROUTE ; Start 07/12/21 at 07:44; Stop 07/12/21 at 07:44; Status DC Glycopyrrolate (Robinul) 1 mg STK-MED ONCE .ROUTE ; Start 07/12/21 at 07:45; Stop 07/12/21 at 07:45; Status DC Fentanyl Citrate (Fentanyl 2ml Vial) 25 mcg PRN Q5MIN PRN IVP MILD PAIN 1-3; Start 07/12/21 at 08:00; Stop 07/13/21 at 07:59; Status DC Fentanyl Citrate (Fentanyl 2ml Vial) 50 mcg PRN Q5MIN PRN IVP MODERATE PAIN 4-6; Start 07/12/21 at 08:00; Stop 07/13/21 at 07:59; Status DC Morphine Sulfate (Morphine Sulfate) 1 mg PRN Q10MIN PRN IVP SEVERE PAIN 7-10; Start 07/12/21 at 08:00; Stop 07/13/21 at 07:59; Status DC Ringer's Solution 1,000 ml @ 30 mls/hr Q24H IV ; Start 07/12/21 at 08:00; Stop 07/12/21 at 19:59; Status DC Hydromorphone HCl (Dilaudid) 0.5 mg PRN Q10MIN PRN IVP SEVERE PAIN 7-10, 2nd CHOICE; Start 07/12/21 at 08:00; Stop 07/13/21 at 07:59; Status DC Prochlorperazine Edisylate (Compazine) 5 mg PACU PRN PRN IVP NAUSEA, MRX1; Start 07/12/21 at 08:00; Stop 07/13/21 at 07:59; Status DC Albumin Human 500 ml @ 125 mls/hr 1X ONCE IV Last administered on 07/12/21at 08:17; Start 07/12/21 at 08:15; Stop 07/12/21 at 12:14; Status DC Etomidate (Amidate) 20 mg STK-MED ONCE IV ; Start 07/12/21 at 08:30; Stop 07/12/21 at 08:30; Status DC Rocuronium [place] (Zemuron) 100 mg STK-MED ONCE .ROUTE ; Start 07/12/21 at 09:34; Stop 07/12/21 at 09:34; Status DC Phenylephrine HCl (PHENYLEPHRINE in 0.9% NACL PF) 1 mg STK-MED ONCE IV ; Start 07/12/21 at 10:27; Stop 07/12/21 at 10:27; Status DC Phenylephrine HCl (Lionel-Synephrine Inj) 10 mg STK-MED ONCE .ROUTE ; Start 07/12/21 at 10:27; Stop 07/12/21 at 10:27; Status DC Ephedrine Sulfate (ePHEDrine PF IN SALINE SYRINGE) 50 mg STK-MED ONCE IV ; Start 07/12/21 at 10:27; Stop 07/12/21 at 10:27; Status DC Albumin Human 500 ml @ As Directed STK-MED ONCE IV ; Start 07/12/21 at 11:15; Stop 07/12/21 at 11:16; Status DC Albumin Human 500 ml @ 500 mls/hr 1X ONCE IV Last administered on 07/12/21at 13:40; Start 07/12/21 at 11:30; Stop 07/12/21 at 12:29; Status DC Phenylephrine HCl (Lionel-Synephrine Inj) 10 mg STK-MED ONCE .ROUTE ; Start 07/12/21 at 11:54; Stop 07/12/21 at 11:55; Status DC Cefoxitin Sodium (Mefoxin) 1 gm Q6H IVP Last administered on 07/13/21at 01:47; Start 07/12/21 at 14:00; Stop 07/13/21 at 02:01; Status DC Famotidine (Pepcid Vial) 20 mg QHS IVP Last administered on 07/19/21at 20:48; Start 07/12/21 at 21:00 Enoxaparin Sodium (Lovenox 30mg Syringe) 30 mg Q24H SQ Last administered on 07/15/21at 21:04; Start 07/12/21 at 21:00; Stop 07/16/21 at 09:07; Status DC Sodium Chloride (Normal Saline Flush) 3 ml QSHIFT PRN IV AFTER MEDS AND BLOOD DRAWS; Start 07/12/21 at 12:15 Ringer's Solution 1,000 ml @ 100 mls/hr Q10H IV Last administered on 07/13/21at 10:39; Start 07/12/21 at 12:15; Stop 07/13/21 at 19:33; Status DC Naloxone HCl (Narcan) 0.4 mg PRN Q2MIN PRN IV SEE INSTRUCTIONS; Start 07/12/21 at 12:15 Sodium Chloride 1,000 ml @ 25 mls/hr Q24H IV ; Start 07/12/21 at 12:15; Stop 07/13/21 at 19:33; Status DC Morphine Sulfate (Morphine Sulfate) 1 mg PRN Q1HR PRN IV MODERATE PAIN; Start 07/12/21 at 12:15; Stop 07/12/21 at 13:51; Status DC Ondansetron HCl (Zofran) 4 mg PRN Q6HRS PRN IVP NAUESA, 1ST CHOICE; Start 07/12/21 at 12:15 Midazolam HCl 100 ml @ 1 mls/hr CONT PRN IV SEE PROTOCOL Last administered on 07/12/21at 16:55; Start 07/12/21 at 12:45; Stop 07/16/21 at 19:27; Status DC Propofol 100 ml @ 1.74 mls/hr CONT PRN IV PER PROTOCOL; Start 07/12/21 at 12:45; Stop 07/16/21 at 19:27; Status DC Glycerin/ Hypromellose/ Polyethylene (Artificial Tears) 1 drop PRN Q1HR PRN OU DRY EYE; Start 07/12/21 at 12:45 Albumin Human 500 ml @ 125 mls/hr 1X ONCE IV ; Start 07/12/21 at 12:45; Stop 07/12/21 at 16:44; Status DC Fentanyl Citrate 30 ml @ 0 mls/hr CONT PRN IV SEE PROTOCOL Last administered on 07/12/21at 23:40; Start 07/12/21 at 13:15; Stop 07/13/21 at 10:16; Status DC Sodium Bicarbonate (Sodium Bicarb Adult 8.4% Syr) 50 meq STK-MED ONCE .ROUTE ; Start 07/12/21 at 13:28; Stop 07/12/21 at 13:28; Status DC Sodium Bicarbonate (Sodium Bicarb Adult 8.4% Syr) 50 meq 1X ONCE IV Last administered on 07/12/21at 13:40; Start 07/12/21 at 13:45; Stop 07/12/21 at 13:46; Status DC Sodium Bicarbonate 150 meq/Dextrose 1,150 ml @ 75 mls/hr [id number] IV Last administered on 07/13/21at 05:37; Start 07/12/21 at 14:30; Stop 07/13/21 at 19:34; Status DC Norepinephrine Bitartrate 8 mg/ Dextrose 258 ml @ 11.204 mls/ hr CONT PRN IV PER PROTOCOL Last administered on 07/14/21at 23:22; Start 07/12/21 at 13:45; Stop 07/15/21 at 03:14; Status DC Fentanyl Citrate (Fentanyl 2ml Vial) 50 mcg 1X ONCE IVP ; Start 07/12/21 at 14:15; Stop 07/12/21 at 14:16; Status DC Sodium Bicarbonate (Sodium Bicarb Adult 8.4% Syr) 50 meq STK-MED ONCE .ROUTE ; Start 07/12/21 at 21:15; Stop 07/12/21 at 21:15; Status DC Sevoflurane (Ultane) 60 ml STK-MED ONCE IH ; Start 07/12/21 at 21:15; Stop 07/12/21 at 21:15; Status DC Digoxin (Lanoxin) 500 mcg 1X ONCE IV Last administered on 07/13/21at 03:22; Start 07/13/21 at 03:30; Stop 07/13/21 at 03:31; Status DC Fentanyl Citrate 55 ml @ 1 mls/hr CONT PRN IV SEE PROTOCOL Last administered on 07/15/21at 06:00; Start 07/13/21 at 10:30; Stop 07/16/21 at 19:27; Status DC Piperacillin Sod/ Tazobactam Sod 2.25 gm/Sodium Chloride 50 ml @ 100 mls/hr Q6HRS IV Last administered on 07/18/21at 17:10; Start 07/13/21 at 12:00; Stop 07/18/21 at 18:02; Status DC Propofol (Diprivan) 1,000 mg STK-MED ONCE IV ; Start 07/12/21 at 13:00; Stop 07/13/21 at 12:22; Status DC Digoxin (Lanoxin) 500 mcg 1X ONCE IV Last administered on 07/14/21at 04:40; Start 07/14/21 at 04:30; Stop 07/14/21 at 04:31; Status DC Magnesium Sulfate 50 ml @ 25 mls/hr 1X ONCE IV Last administered on 07/14/21at 15:22; Start 07/14/21 at 12:30; Stop 07/14/21 at 14:29; Status DC Sodium Chloride 1,000 ml @ 1,000 mls/hr 1X ONCE IV Last administered on 07/14/21at 12:15; Start 07/14/21 at 12:30; Stop 07/14/21 at 13:29; Status DC Sodium Chloride 1,000 ml @ 1,000 mls/hr 1X ONCE IV Last administered on 07/14/21at 15:42; Start 07/14/21 at 15:30; Stop 07/14/21 at 16:29; Status DC Sodium Chloride 500 ml @ 500 mls/hr 1X ONCE IV Last administered on 07/14/21at 12:15; Start 07/14/21 at 15:30; Stop 07/14/21 at 16:29; Status DC Norepinephrine Bitartrate 32 mg/ Dextrose 250 ml @ 3.192 mls/ hr CONT PRN IV SEE I/O RECORD Last administered on 07/15/21at 04:15; Start 07/15/21 at 03:30 Furosemide (Lasix) 20 mg 1X ONCE IVP Last administered on 07/15/21at 18:29; Start 07/15/21 at 10:00; Stop 07/15/21 at 10:01; Status DC Info (Tpn Per Pharmacy) 1 each PRN DAILY PRN MC SEE COMMENTS Last administered on 07/20/21at 08:14; Start 07/15/21 at 10:30 Sodium Chloride 90 meq/Potassium Chloride 50 meq/ Potassium Phosphate 13.6 mmol/Magnesium Sulfate 10 meq/ Multivitamins 10 ml/Zinc/Copper/ Manganese/ Selenium 1 ml/ Total Parenteral Nutrition/Amino Acids/Dextrose/ Fat Emulsion Intravenous 1,512 ml @ 63 mls/hr TPN CONT IV Last administered on 07/15/21at 22:05; Start 07/15/21 at 22:00; Stop 07/16/21 at 21:59; Status DC Furosemide (Lasix) 20 mg 1X ONCE IVP ; Start 07/15/21 at 18:30; Stop 07/15/21 at 18:31; Status DC Enoxaparin Sodium (Lovenox 40mg Syringe) 40 mg Q24H SQ Last administered on 07/19/21at 20:48; Start 07/16/21 at 21:00 Sodium Chloride 70 meq/Potassium Chloride 50 meq/ Potassium Phosphate 20 mmol/ Magnesium Sulfate 10 meq/ Multivitamins 10 ml/Zinc/Copper/ Manganese/ Selenium 1 ml/ Total Parenteral Nutrition/Amino Acids/Dextrose/ Fat Emulsion Intravenous 1,512 ml @ 63 mls/hr TPN CONT IV ; Start 07/16/21 at 22:00; Stop 07/16/21 at 13:33; Status DC Sodium Chloride 70 meq/Potassium Chloride 50 meq/ Potassium Phosphate 20 mmol/ Magnesium Sulfate 10 meq/ Multivitamins 10 ml/Zinc/Copper/ Manganese/ Selenium 1 ml/ Total Parenteral Nutrition/Amino Acids/Dextrose/ Fat Emulsion Intravenous 1,482 ml @ 61.75 mls/ hr TPN CONT IV ; Start 07/16/21 at 22:00; Stop 07/16/21 at 14:03; Status DC Sodium Chloride 70 meq/Potassium Chloride 50 meq/ Potassium Phosphate 20 mmol/ Magnesium Sulfate 10 meq/ Multivitamins 10 ml/Zinc/Copper/ Manganese/ Selenium 1 ml/ Total Parenteral Nutrition/Amino Acids/Dextrose/ Fat Emulsion Intravenous 1,512 ml @ 63 mls/hr TPN CONT IV Last administered on 07/16/21at 21:38; Start 07/16/21 at 22:00; Stop 07/17/21 at 21:59; Status DC Fentanyl Citrate (Fentanyl 2ml Vial) 25 mcg PRN Q1HR PRN IVP PAIN Last administered on 07/17/21at 20:21; Start 07/16/21 at 19:30 Labetalol HCl (Normodyne Iv Push) 10 mg PRN Q4HRS PRN IVP HYPERTENSION; Start 07/17/21 at 09:15 Potassium Phosphate 15 mmol/ Sodium Chloride 105 ml @ 52.5 mls/hr 1X ONCE IV Last administered on 07/17/21at 12:32; Start 07/17/21 at 12:00; Stop 07/17/21 at 13:59; Status DC Sodium Chloride 70 meq/Potassium Chloride 50 meq/ Potassium Phosphate 25 mmol/ Magnesium Sulfate 10 meq/ Multivitamins 10 ml/Zinc/Copper/ Manganese/ Selenium 1 ml/ Total Parenteral Nutrition/Amino Acids/Dextrose/ Fat Emulsion Intravenous 1,512 ml @ 63 mls/hr TPN CONT IV Last administered on 07/17/21at 20:22; Start 07/17/21 at 22:00; Stop 07/18/21 at 21:59; Status DC Furosemide (Lasix) 40 mg 1X ONCE IVP Last administered on 07/17/21at 12:28; Start 07/17/21 at 11:45; Stop 07/17/21 at 11:46; Status DC Sodium Acetate 70 meq/Potassium Chloride 50 meq/ Potassium Phosphate 22 mmol/ Magnesium Sulfate 8 meq/ Multivitamins 10 ml/Zinc/Copper/ Manganese/ Selenium 1 ml/ Total Parenteral Nutrition/Amino Acids/Dextrose/ Fat Emulsion Intravenous 1,512 ml @ 63 mls/hr TPN CONT IV Last administered on 07/18/21at 21:44; Start 07/18/21 at 22:00; Stop 07/19/21 at 21:59; Status DC Meropenem 500 mg/ Sodium Chloride 50 ml @ 100 mls/hr Q8HRS IV Last administered on 07/20/21at 13:57; Start 07/18/21 at 22:00 Daptomycin 450 mg/ Sodium Chloride 50 ml @ 100 mls/hr Q24H IV Last administered on 07/19/21at 20:45; Start 07/18/21 at 20:00 Sodium Chloride 40 meq/Potassium Acetate 50 meq/ Potassium Phosphate 22 mmol/ Magnesium Sulfate 8 meq/ Multivitamins 10 ml/Zinc/Copper/ Manganese/ Selenium 1 ml/ Total Parenteral Nutrition/Amino Acids/Dextrose/ Fat Emulsion Intravenous 1,680 ml @ 70 mls/hr TPN CONT IV Last administered on 07/19/21at 21:40; Start 07/19/21 at 22:00; Stop 07/20/21 at 21:59 Linezolid/Dextrose 300 ml @ 300 mls/hr Q12HR IV Last administered on 07/20/21at 08:34; Start 07/19/21 at 14:00 Sodium Chloride 40 meq/Potassium Acetate 50 meq/ Potassium Phosphate 22 mmol/ Magnesium Sulfate 6 meq/ Multivitamins 10 ml/Zinc/Copper/ Manganese/ Selenium 1 ml/ Total Parenteral Nutrition/Amino Acids/Dextrose/ Fat Emulsion Intravenous 1,680 ml @ 70 mls/hr TPN CONT IV ; Start 07/20/21 at 22:00; Stop 07/21/21 at 21:59 Active Scripts Active [Pantoprazole] 40 MG Tablet.dr 40 Mg PO BIDBFRMEAL Carafate (Sucralfate) 1 Gm/10 Ml Oral.susp 1 Gm PO TIDBFRMEAL Reported Avalide 150-12.5 Mg Tablet (Irbesartan/Hydrochlorothiazide) 1 Each Tablet 1 Each PO DAILY Allergies Allergies: Coded Allergies: No Known Drug Allergies (Unverified , 06/21/17) ROS Review of System Unable to obtain due to clinical status Physical Exam Physical Exam Intubated and sedated HEENT: Atraumatic Lungs: Clear to auscultation Heart: Regular rate Abdomen: Soft Skin: No rashes Vitals VITALS Vital Signs Date Time Temp Pulse Resp B/P (MAP) Pulse Ox O2 Delivery O2 Flow Rate FiO2 07/20/21 16:00 98.4 102 34 136/67 95 CPAP Trial 98.4 Labs Labs Laboratory Tests Test 07/18/21 18:40 07/19/21 06:00 07/19/21 08:00 07/20/21 05:45 Urine Collection Type Unknown Urine Color (Auto) Yellow Urine Turbidity Clear Urine pH (Auto) 5.5 (<5.0-8.0) Urine Specific [place] 1.026 (1.000-1.030) Urine Protein (Auto) 50 mg/dL (Negative) Urine Glucose (Auto)(UA) Negative mg/dL (Negative) Urine Ketones (Auto) Negative mg/dL (Negative) Urine Blood (Auto) Small (Negative) Urine Nitrite Negative (Negative) Urine Bilirubin (Auto) Negative (Negative) Urine Urobilinogen (Auto) Normal mg/dL (Normal) Urine Leukocyte Esterase (Auto) Negative (Negative) Urine RBC 1-2 /HPF (0-2) Urine WBC 0 /HPF (0-4) Urine Bacteria 0 /HPF (0-FEW) Urine Hyaline Casts Few /HPF Urine Mucus Slight /LPF White Blood Count 19.6 x10^3/uL (4.0-11.0) 18.2 x10^3/uL (4.0-11.0) Red Blood Count 3.93 x10^6/uL (4.30-5.70) 3.73 x10^6/uL (4.30-5.70) Hemoglobin 11.3 g/dL (13.0-17.5) 10.8 g/dL (13.0-17.5) Hematocrit 33.7 % (39.0-53.0) 31.9 % (39.0-53.0) Mean Corpuscular Volume 86 fL (79-100) 85 fL (79-100) Mean Corpuscular Hemoglobin 29 pg (25-35) 29 pg (25-35) Mean Corpuscular Hemoglobin Concent 34 g/dL (31-37) 34 g/dL (31-37) Red Cell Distribution Width 15.8 % (11.5-14.5) 15.4 % (11.5-14.5) Platelet Count 381 x10^3/uL (140-400) 381 x10^3/uL (140-400) Neutrophils (%) (Auto) 89 % (31-73) 88 % (31-73) Lymphocytes (%) (Auto) 4 % (24-48) 4 % (24-48) Monocytes (%) (Auto) 8 % (0-9) 7 % (0-9) Eosinophils (%) (Auto) 0 % (0-3) 0 % (0-3) Basophils (%) (Auto) 0 % (0-3) 0 % (0-3) Neutrophils # (Auto) 17.4 x10^3/uL (1.8-7.7) 16.1 x10^3/uL (1.8-7.7) Lymphocytes # (Auto) 0.7 x10^3/uL (1.0-4.8) 0.8 x10^3/uL (1.0-4.8) Monocytes # (Auto) 1.5 x10^3/uL (0.0-1.1) 1.3 x10^3/uL (0.0-1.1) Eosinophils # (Auto) 0.0 x10^3/uL (0.0-0.7) 0.0 x10^3/uL (0.0-0.7) Basophils # (Auto) 0.0 x10^3/uL (0.0-0.2) 0.0 x10^3/uL (0.0-0.2) Sodium Level 146 mmol/L (136-145) 147 mmol/L (136-145) Potassium Level 4.0 mmol/L (3.5-5.1) 3.9 mmol/L (3.5-5.1) Chloride Level 115 mmol/L (98-107) 116 mmol/L (98-107) Carbon Dioxide Level 21 mmol/L (21-32) 23 mmol/L (21-32) Anion Gap 10 (6-14) 8 (6-14) Blood Urea Nitrogen 61 mg/dL (8-26) 57 mg/dL (8-26) Creatinine 1.4 mg/dL (0.7-1.3) 1.2 mg/dL (0.7-1.3) Estimated GFR (Cockcroft-Gault) 48.2 57.5 BUN/Creatinine Ratio 44 (6-20) Glucose Level 144 mg/dL (70-99) 126 mg/dL (70-99) Calcium Level 7.8 mg/dL (8.5-10.1) 7.3 mg/dL (8.5-10.1) Total Bilirubin 1.5 mg/dL (0.2-1.0) Aspartate Amino Transf (AST/SGOT) 133 U/L (15-37) Alanine Aminotransferase (ALT/SGPT) 100 U/L (16-63) Alkaline Phosphatase 178 U/L (46-116) Creatine Kinase 36 U/L (39-308) Total Protein 5.1 g/dL (6.4-8.2) Albumin 1.0 g/dL (3.4-5.0) Albumin/Globulin Ratio 0.2 (1.0-1.7) O2 Saturation 98 % (92-99) Arterial Blood pH 7.46 (7.35-7.45) Arterial Blood pH (Temp corrected) 7.45 Arterial Blood pCO2 at Patient Temp 27 mmHg (35-46) Arterial Blood pCO2 (Temp correct) 28 mmHg Arterial Blood pO2 at Patient Temp 112 mmHg (65-108) Arterial Blood pO2 (Temp corrected) 117 mmHg Arterial Blood HCO3 19 mmol/L (21-28) Arterial Blood Base Excess -4 mmol/L (-3-3) FiO2 40 Segmented Neutrophils % 89 % (35-66) Band Neutrophils % 2 % (0-9) Lymphocytes % 5 % (24-48) Atypical Lymphocytes % (Manual) 2 % (0-0) Monocytes % 2 % (0-10) Platelet Estimate Adequate (ADEQUATE) Phosphorus Level 3.3 mg/dL (2.6-4.7) Magnesium Level 2.4 mg/dL (1.8-2.4) Triglycerides Level 168 mg/dL (0-150) Laboratory Tests Test 07/20/21 05:45 White Blood Count 18.2 x10^3/uL (4.0-11.0) Red Blood Count 3.73 x10^6/uL (4.30-5.70) Hemoglobin 10.8 g/dL (13.0-17.5) Hematocrit 31.9 % (39.0-53.0) Mean Corpuscular Volume 85 fL (79-100) Mean Corpuscular Hemoglobin 29 pg (25-35) Mean Corpuscular Hemoglobin Concent 34 g/dL (31-37) Red Cell Distribution Width 15.4 % (11.5-14.5) Platelet Count 381 x10^3/uL (140-400) Neutrophils (%) (Auto) 88 % (31-73) Lymphocytes (%) (Auto) 4 % (24-48) Monocytes (%) (Auto) 7 % (0-9) Eosinophils (%) (Auto) 0 % (0-3) Basophils (%) (Auto) 0 % (0-3) Neutrophils # (Auto) 16.1 x10^3/uL (1.8-7.7) Lymphocytes # (Auto) 0.8 x10^3/uL (1.0-4.8) Monocytes # (Auto) 1.3 x10^3/uL (0.0-1.1) Eosinophils # (Auto) 0.0 x10^3/uL (0.0-0.7) Basophils # (Auto) 0.0 x10^3/uL (0.0-0.2) Segmented Neutrophils % 89 % (35-66) Band Neutrophils % 2 % (0-9) Lymphocytes % 5 % (24-48) Atypical Lymphocytes % (Manual) 2 % (0-0) Monocytes % 2 % (0-10) Platelet Estimate Adequate (ADEQUATE) Sodium Level 147 mmol/L (136-145) Potassium Level 3.9 mmol/L (3.5-5.1) Chloride Level 116 mmol/L (98-107) Carbon Dioxide Level 23 mmol/L (21-32) Anion Gap 8 (6-14) Blood Urea Nitrogen 57 mg/dL (8-26) Creatinine 1.2 mg/dL (0.7-1.3) Estimated GFR (Cockcroft-Gault) 57.5 Glucose Level 126 mg/dL (70-99) Calcium Level 7.3 mg/dL (8.5-10.1) Phosphorus Level 3.3 mg/dL (2.6-4.7) Magnesium Level 2.4 mg/dL (1.8-2.4) Triglycerides Level 168 mg/dL (0-150) Assessment/Plan Assessment/Plan Assessment: Metastatic melanoma Duodenal ulcer perforation Gastric volvulus, status post repair Acute respiratory failure requiring mechanical ventilation, postoperative Leukocytosis, postoperative Fluid collection,? Abscess Recommendations: -Reviewed results of pathology as well as CT scans with the patient and son. Discussed that findings were indicative of metastatic melanoma. He has no known prior diagnosis of cutaneous melanoma -Discussed natural history and management of advanced melanoma. Plan to continue discussion after recovery from current critical illness -Plan to obtain staging CT chest and brain MRI after improvement of clinical status -Consider brain MRI if mental status does not improve. -Would plan on assessment for BRAF [id number] mutation to determine systemic therapy options -We will follow peripherally while inpatient. Plan to discuss diagnosis further with patient and family after clinical status improves and he is off ventilator Elias Jaramillo MD Medical Oncology/Hematology Ph: [phone] GENNA JARAMILLO MD July 20, 2021 17:00
[2021-07-20] MEDS: DAPTOmycin (GENERIC) IVPB 450 MG in IV NORMAL SALINE 50ML 50 ML IV SCH (20:29)
[2021-07-20] MEDS: FAMOTIDINE 20 MG/2 ML VIAL IVP SCH (21:17)
[2021-07-20] MEDS: ENOXAPARIN 40 MG/0.4 ML SYRINGE. SQ SCH (21:18)
[2021-07-20] MEDS ORDERED: [UNRECOGNIZED DRUG - OTHER] IV SCH (22:00)
[2021-07-20] MEDS ORDERED: TOTAL PARENTERAL NUTRITION IV SCH (22:00)
[2021-07-20] MEDS ORDERED: AMINO ACID IV SCH (22:00)
[2021-07-20] MEDS ORDERED: DEXTROSE 70% IV SCH (22:00)
[2021-07-21] VITALS (24 sets, daily range): BP systolic 93–163; BP diastolic 52–78
[2021-07-21 05:15] LABS: BASO % 0 % (0-3); EOS % 0 % (0-3); HEMOGLOBIN 10.1 g/dL (13.0-17.5); LYMPH # 0.7 x10^3/uL (1.0-4.8); LYMPH % 4 % (24-48); MEAN CORPUSCULAR HEMOGLOBIN 29 pg (25-35); MEAN CORPUSCULAR HGB CONC 33 g/dL (31-37); MEAN CORPUSCULAR VOLUME 88 fL (79-100); MONO % 6 % (0-9); NEUT % 90 % (31-73); PLATELET COUNT 327 x10^3/uL (140-400); RED BLOOD COUNT 3.52 x10^6/uL (4.30-5.70); RED CELL DISTRIBUTION WIDTH 15.8 % (11.5-14.5); WHITE BLOOD COUNT 16.8 x10^3/uL (4.0-11.0)
[2021-07-21 05:37] LABS: ALBUMIN/GLOBULIN RATIO 0.3 (1.0-1.7); CALCIUM 7.5 mg/dL (8.5-10.1); CREATININE 1.2 mg/dL (0.7-1.3); GFR 57.5; MAGNESIUM 2.3 mg/dL (1.8-2.4); PHOSPHORUS 3.2 mg/dL (2.6-4.7); POTASSIUM 3.6 mmol/L (3.5-5.1); TOTAL BILIRUBIN 1.2 mg/dL (0.2-1.0); TOTAL PROTEIN 4.9 g/dL (6.4-8.2)
[2021-07-21] MEDS: MEROPENEM 500 MG in IV NORMAL SALINE 50ML 50 ML IV SCH ×3 (05:44→22:17)
[2021-07-21] MEDS: TPN PER PHARMACY MC PRN ×2 (08:50→08:53)
--- NOTE | 2021-07-21 08:50 | NUR ---
Pharmacy TPN Dosing Note S: AZEB COOMBS is a 85 year old M Currently receiving Central Continuous TPN started 07/15/21 B:Pertinent PMH: NPO SINCE 07/12, PERFERATED BOWEL Height: 5 feet, 4 inches Weight: 75.0 kg Current diet: NPO LABS: Sodium: 145 Potassium: 3.6 Chloride: 115 Calcium: 7.5 Corrected Calcium: 9.90 Magnesium: 2.3 CO2: 21 SCr: 1.2 Glucose: 115 Albumin: 1.0 AST: 95 ALT: 96 TPN FORMULA: TPN TYPE: Central Continuous AMINO ACIDS: 75 gm DEXTROSE: 210 gm LIPIDS: 30 gm SODIUM CHLORIDE: 40 mEq POTASSIUM ACETATE: 60 mEq POTASSIUM PHOSPHATE: 30 mmol MAGNESIUM: 6 mEq MULTIPLE VITAMIN: 10 ml TRACE ELEMENTS: 1 mL ml(s) TPN PLAN: RD recommends increasing dextrose to 210 grams/bag. K and Phos trending down. Increase KPhos to 30 mmol/bag and increase K acetate to 60 meq/bag. R: Continue TPN Will monitor electrolytes, glucose, and tolerance to TPN. [facility], 07/21/21 [id number]
--- NOTE | 2021-07-21 08:56 | PDOC ---
PROGRESS NOTES Date of Service DATE: 07/21/21 TIME: 08:49 Assessment Metabolic encephalopathy, may have had some anoxia? Better Perforated viscus, status-post exploratory laparotomy, gastrotomy tube pl acement, hernia repair surgery, respiratory failure, hypotension requiring vasopressors, sepsis, acute kidney injury, abnormal liver function tests, history of prostrate cancer anoxic encephalopathy. History of hypertension, hiatal hernia, gastroesophageal reflux disease, gastric ulcer, constipation Prostate cancer and melanoma, metastatic Plan Holding off on additional studies given his continued improvement Objective Vital Signs Date Time Temp Pulse Resp B/P (MAP) Pulse Ox O2 Delivery O2 Flow Rate FiO2 07/21/21 08:10 96 Ventilator 07/21/21 07:00 98.5 82 33 121/60 98.5 Intake and Output 07/21/21 07:00 Intake Total 1222 ml Output Total 1450 ml Balance -228 ml IV Total 1222 ml Output Urine Total 1110 ml Drainage Total 340 ml # Bowel Movements 1 PHYSICAL EXAM Alert, follows commands, still on ventilator PERRL. EOMI. CN: no focal findings. Muscle tone: normal. Muscle strength: 1/5 DTR: 0+ Plantar reflex: Silent Gait: not examined in bed. Sensory exam: no abnormal findings. No cerebellar signs elicited. Review of Relevant I have reviewed the following items joanne (where applicable) has been applied. Labs Laboratory Tests Test 07/20/21 05:45 07/21/21 05:00 White Blood Count 18.2 x10^3/uL (4.0-11.0) 16.8 x10^3/uL (4.0-11.0) Red Blood Count 3.73 x10^6/uL (4.30-5.70) 3.52 x10^6/uL (4.30-5.70) Hemoglobin 10.8 g/dL (13.0-17.5) 10.1 g/dL (13.0-17.5) Hematocrit 31.9 % (39.0-53.0) 31.0 % (39.0-53.0) Mean Corpuscular Volume 85 fL (79-100) 88 fL (79-100) Mean Corpuscular Hemoglobin 29 pg (25-35) 29 pg (25-35) Mean Corpuscular Hemoglobin Concent 34 g/dL (31-37) 33 g/dL (31-37) Red Cell Distribution Width 15.4 % (11.5-14.5) 15.8 % (11.5-14.5) Platelet Count 381 x10^3/uL (140-400) 327 x10^3/uL (140-400) Neutrophils (%) (Auto) 88 % (31-73) 90 % (31-73) Lymphocytes (%) (Auto) 4 % (24-48) 4 % (24-48) Monocytes (%) (Auto) 7 % (0-9) 6 % (0-9) Eosinophils (%) (Auto) 0 % (0-3) 0 % (0-3) Basophils (%) (Auto) 0 % (0-3) 0 % (0-3) Neutrophils # (Auto) 16.1 x10^3/uL (1.8-7.7) 15.0 x10^3/uL (1.8-7.7) Lymphocytes # (Auto) 0.8 x10^3/uL (1.0-4.8) 0.7 x10^3/uL (1.0-4.8) Monocytes # (Auto) 1.3 x10^3/uL (0.0-1.1) 1.0 x10^3/uL (0.0-1.1) Eosinophils # (Auto) 0.0 x10^3/uL (0.0-0.7) 0.0 x10^3/uL (0.0-0.7) Basophils # (Auto) 0.0 x10^3/uL (0.0-0.2) 0.0 x10^3/uL (0.0-0.2) Segmented Neutrophils % 89 % (35-66) Band Neutrophils % 2 % (0-9) Lymphocytes % 5 % (24-48) Atypical Lymphocytes % (Manual) 2 % (0-0) Monocytes % 2 % (0-10) Platelet Estimate Adequate (ADEQUATE) Sodium Level 147 mmol/L (136-145) 145 mmol/L (136-145) Potassium Level 3.9 mmol/L (3.5-5.1) 3.6 mmol/L (3.5-5.1) Chloride Level 116 mmol/L (98-107) 115 mmol/L (98-107) Carbon Dioxide Level 23 mmol/L (21-32) 21 mmol/L (21-32) Anion Gap 8 (6-14) 9 (6-14) Blood Urea Nitrogen 57 mg/dL (8-26) 53 mg/dL (8-26) Creatinine 1.2 mg/dL (0.7-1.3) 1.2 mg/dL (0.7-1.3) Estimated GFR (Cockcroft-Gault) 57.5 57.5 Glucose Level 126 mg/dL (70-99) 115 mg/dL (70-99) Calcium Level 7.3 mg/dL (8.5-10.1) 7.5 mg/dL (8.5-10.1) Phosphorus Level 3.3 mg/dL (2.6-4.7) 3.2 mg/dL (2.6-4.7) Magnesium Level 2.4 mg/dL (1.8-2.4) 2.3 mg/dL (1.8-2.4) Triglycerides Level 168 mg/dL (0-150) BUN/Creatinine Ratio 44 (6-20) Total Bilirubin 1.2 mg/dL (0.2-1.0) Aspartate Amino Transf (AST/SGOT) 95 U/L (15-37) Alanine Aminotransferase (ALT/SGPT) 96 U/L (16-63) Alkaline Phosphatase 196 U/L (46-116) Total Protein 4.9 g/dL (6.4-8.2) Albumin 1.0 g/dL (3.4-5.0) Albumin/Globulin Ratio 0.3 (1.0-1.7) Laboratory Tests Test 07/21/21 05:00 White Blood Count 16.8 x10^3/uL (4.0-11.0) Red Blood Count 3.52 x10^6/uL (4.30-5.70) Hemoglobin 10.1 g/dL (13.0-17.5) Hematocrit 31.0 % (39.0-53.0) Mean Corpuscular Volume 88 fL (79-100) Mean Corpuscular Hemoglobin 29 pg (25-35) Mean Corpuscular Hemoglobin Concent 33 g/dL (31-37) Red Cell Distribution Width 15.8 % (11.5-14.5) Platelet Count 327 x10^3/uL (140-400) Neutrophils (%) (Auto) 90 % (31-73) Lymphocytes (%) (Auto) 4 % (24-48) Monocytes (%) (Auto) 6 % (0-9) Eosinophils (%) (Auto) 0 % (0-3) Basophils (%) (Auto) 0 % (0-3) Neutrophils # (Auto) 15.0 x10^3/uL (1.8-7.7) Lymphocytes # (Auto) 0.7 x10^3/uL (1.0-4.8) Monocytes # (Auto) 1.0 x10^3/uL (0.0-1.1) Eosinophils # (Auto) 0.0 x10^3/uL (0.0-0.7) Basophils # (Auto) 0.0 x10^3/uL (0.0-0.2) Sodium Level 145 mmol/L (136-145) Potassium Level 3.6 mmol/L (3.5-5.1) Chloride Level 115 mmol/L (98-107) Carbon Dioxide Level 21 mmol/L (21-32) Anion Gap 9 (6-14) Blood Urea Nitrogen 53 mg/dL (8-26) Creatinine 1.2 mg/dL (0.7-1.3) Estimated GFR (Cockcroft-Gault) 57.5 BUN/Creatinine Ratio 44 (6-20) Glucose Level 115 mg/dL (70-99) Calcium Level 7.5 mg/dL (8.5-10.1) Phosphorus Level 3.2 mg/dL (2.6-4.7) Magnesium Level 2.3 mg/dL (1.8-2.4) Total Bilirubin 1.2 mg/dL (0.2-1.0) Aspartate Amino Transf (AST/SGOT) 95 U/L (15-37) Alanine Aminotransferase (ALT/SGPT) 96 U/L (16-63) Alkaline Phosphatase 196 U/L (46-116) Total Protein 4.9 g/dL (6.4-8.2) Albumin 1.0 g/dL (3.4-5.0) Albumin/Globulin Ratio 0.3 (1.0-1.7) Microbiology 07/19/21 Respiratory Culture Gram Stain - Final, Resulted 07/19/21 Respiratory Culture, Resulted Pending 07/18/21 Blood Culture - Preliminary, Resulted NO GROWTH AFTER 2 DAYS Medications Current Medications Ceftriaxone Sodium (Rocephin) 2 gm Q24H IVP Last administered on 07/13/21at 06:30; Start 07/12/21 at 07:00; Stop 07/13/21 at 09:46; Status DC Metronidazole 100 ml @ 100 mls/hr Q8HRS IV Last administered on 07/13/21at 06:15; Start 07/12/21 at 14:00; Stop 07/13/21 at 09:46; Status DC Morphine Sulfate (Morphine Sulfate) 4 mg PRN Q4HRS PRN IVP SEVERE PAIN 7-10 Last administered on 07/12/21at 06:59; Start 07/12/21 at 06:15; Stop 07/12/21 at 13:52; Status DC Ondansetron HCl (Zofran) 4 mg PRN Q4HRS PRN IVP NAUSEA/VOMITING 1ST CHOICE Last administered on 07/12/21at 07:02; Start 07/12/21 at 06:15; Stop 07/12/21 at 13:03; Status DC Sodium Chloride 1,000 ml @ 150 mls/hr Q6H40M IV Last administered on 07/16/21at 04:36; Start 07/12/21 at 06:15; Stop 07/16/21 at 10:01; Status DC Piperacillin Sod/ Tazobactam Sod 2.25 gm/Sodium Chloride 50 ml @ 100 mls/hr Q8HRS IV Last administered on 07/13/21at 05:37; Start 07/12/21 at 14:00; Stop 07/13/21 at 11:36; Status DC Propofol (Diprivan) 200 mg STK-MED ONCE IV ; Start 07/12/21 at 07:43; Stop 07/12/21 at 07:44; Status DC Ondansetron HCl (Zofran) 4 mg STK-MED ONCE .ROUTE ; Start 07/12/21 at 07:43; Stop 07/12/21 at 07:44; Status DC Dexamethasone Sodium Phosphate (Decadron) 4 mg STK-MED ONCE .ROUTE ; Start 07/12/21 at 07:43; Stop 07/12/21 at 07:44; Status DC Succinylcholine Chloride (Anectine) 200 mg STK-MED ONCE .ROUTE ; Start 07/12/21 at 07:44; Stop 07/12/21 at 07:44; Status DC Neostigmine [place] (Neostigmine Methylsulfate) 5 mg STK-MED ONCE .ROUTE ; Start 07/12/21 at 07:44; Stop 07/12/21 at 07:44; Status DC Rocuronium [place] (Zemuron) 50 mg STK-MED ONCE .ROUTE ; Start 07/12/21 at 07:44; Stop 07/12/21 at 07:44; Status DC Fentanyl Citrate (Fentanyl 2ml Vial) 100 mcg STK-MED ONCE .ROUTE ; Start 07/12/21 at 07:44; Stop 07/12/21 at 07:44; Status DC Midazolam HCl (Versed) 2 mg STK-MED ONCE .ROUTE ; Start 07/12/21 at 07:44; Stop 07/12/21 at 07:44; Status DC Glycopyrrolate (Robinul) 1 mg STK-MED ONCE .ROUTE ; Start 07/12/21 at 07:45; Stop 07/12/21 at 07:45; Status DC Fentanyl Citrate (Fentanyl 2ml Vial) 25 mcg PRN Q5MIN PRN IVP MILD PAIN 1-3; Start 07/12/21 at 08:00; Stop 07/13/21 at 07:59; Status DC Fentanyl Citrate (Fentanyl 2ml Vial) 50 mcg PRN Q5MIN PRN IVP MODERATE PAIN 4- 6; Start 07/12/21 at 08:00; Stop 07/13/21 at 07:59; Status DC Morphine Sulfate (Morphine Sulfate) 1 mg PRN Q10MIN PRN IVP SEVERE PAIN 7-10; Start 07/12/21 at 08:00; Stop 07/13/21 at 07:59; Status DC Ringer's Solution 1,000 ml @ 30 mls/hr Q24H IV ; Start 07/12/21 at 08:00; Stop 07/12/21 at 19:59; Status DC Hydromorphone HCl (Dilaudid) 0.5 mg PRN Q10MIN PRN IVP SEVERE PAIN 7-10, 2nd CHOICE; Start 07/12/21 at 08:00; Stop 07/13/21 at 07:59; Status DC Prochlorperazine Edisylate (Compazine) 5 mg PACU PRN PRN IVP NAUSEA, MRX1; Start 07/12/21 at 08:00; Stop 07/13/21 at 07:59; Status DC Albumin Human 500 ml @ 125 mls/hr 1X ONCE IV Last administered on 07/12/21at 08:17; Start 07/12/21 at 08:15; Stop 07/12/21 at 12:14; Status DC Etomidate (Amidate) 20 mg STK-MED ONCE IV ; Start 07/12/21 at 08:30; Stop 07/12/21 at 08:30; Status DC Rocuronium [place] (Zemuron) 100 mg STK-MED ONCE .ROUTE ; Start 07/12/21 at 09:34; Stop 07/12/21 at 09:34; Status DC Phenylephrine HCl (PHENYLEPHRINE in 0.9% NACL PF) 1 mg STK-MED ONCE IV ; Start 07/12/21 at 10:27; Stop 07/12/21 at 10:27; Status DC Phenylephrine HCl (Lionel-Synephrine Inj) 10 mg STK-MED ONCE .ROUTE ; Start 07/12/21 at 10:27; Stop 07/12/21 at 10:27; Status DC Ephedrine Sulfate (ePHEDrine PF IN SALINE SYRINGE) 50 mg STK-MED ONCE IV ; Start 07/12/21 at 10:27; Stop 07/12/21 at 10:27; Status DC Albumin Human 500 ml @ As Directed STK-MED ONCE IV ; Start 07/12/21 at 11:15; Stop 07/12/21 at 11:16; Status DC Albumin Human 500 ml @ 500 mls/hr 1X ONCE IV Last administered on 07/12/21at 13:40; Start 07/12/21 at 11:30; Stop 07/12/21 at 12:29; Status DC Phenylephrine HCl (Lionel-Synephrine Inj) 10 mg STK-MED ONCE .ROUTE ; Start 07/12/21 at 11:54; Stop 07/12/21 at 11:55; Status DC Cefoxitin Sodium (Mefoxin) 1 gm Q6H IVP Last administered on 07/13/21at 01:47; Start 07/12/21 at 14:00; Stop 07/13/21 at 02:01; Status DC Famotidine (Pepcid Vial) 20 mg QHS IVP Last administered on 07/20/21at 21:17; Start 07/12/21 at 21:00 Enoxaparin Sodium (Lovenox 30mg Syringe) 30 mg Q24H SQ Last administered on 07/15/21at 21:04; Start 07/12/21 at 21:00; Stop 07/16/21 at 09:07; Status DC Sodium Chloride (Normal Saline Flush) 3 ml QSHIFT PRN IV AFTER MEDS AND BLOOD DRAWS; Start 07/12/21 at 12:15 Ringer's Solution 1,000 ml @ 100 mls/hr Q10H IV Last administered on 07/13/21at 10:39; Start 07/12/21 at 12:15; Stop 07/13/21 at 19:33; Status DC Naloxone HCl (Narcan) 0.4 mg PRN Q2MIN PRN IV SEE INSTRUCTIONS; Start 07/12/21 at 12:15 Sodium Chloride 1,000 ml @ 25 mls/hr Q24H IV ; Start 07/12/21 at 12:15; Stop 07/13/21 at 19:33; Status DC Morphine Sulfate (Morphine Sulfate) 1 mg PRN Q1HR PRN IV MODERATE PAIN; Start 07/12/21 at 12:15; Stop 07/12/21 at 13:51; Status DC Ondansetron HCl (Zofran) 4 mg PRN Q6HRS PRN IVP NAUESA, 1ST CHOICE; Start 07/12/21 at 12:15 Midazolam HCl 100 ml @ 1 mls/hr CONT PRN IV SEE PROTOCOL Last administered on 07/12/21at 16:55; Start 07/12/21 at 12:45; Stop 07/16/21 at 19:27; Status DC Propofol 100 ml @ 1.74 mls/hr CONT PRN IV PER PROTOCOL; Start 07/12/21 at 12:45; Stop 07/16/21 at 19:27; Status DC Glycerin/ Hypromellose/ Polyethylene (Artificial Tears) 1 drop PRN Q1HR PRN OU DRY EYE; Start 07/12/21 at 12:45 Albumin Human 500 ml @ 125 mls/hr 1X ONCE IV ; Start 07/12/21 at 12:45; Stop 07/12/21 at 16:44; Status DC Fentanyl Citrate 30 ml @ 0 mls/hr CONT PRN IV SEE PROTOCOL Last administered on 07/12/21at 23:40; Start 07/12/21 at 13:15; Stop 07/13/21 at 10:16; Status DC Sodium Bicarbonate (Sodium Bicarb Adult 8.4% Syr) 50 meq STK-MED ONCE .ROUTE ; Start 07/12/21 at 13:28; Stop 07/12/21 at 13:28; Status DC Sodium Bicarbonate (Sodium Bicarb Adult 8.4% Syr) 50 meq 1X ONCE IV Last administered on 07/12/21at 13:40; Start 07/12/21 at 13:45; Stop 07/12/21 at 13:46; Status DC Sodium Bicarbonate 150 meq/Dextrose 1,150 ml @ 75 mls/hr [id number] IV Last administered on 07/13/21at 05:37; Start 07/12/21 at 14:30; Stop 07/13/21 at 19:34; Status DC Norepinephrine Bitartrate 8 mg/ Dextrose 258 ml @ 11.204 mls/ hr CONT PRN IV PER PROTOCOL Last administered on 07/14/21at 23:22; Start 07/12/21 at 13:45; Stop 07/15/21 at 03:14; Status DC Fentanyl Citrate (Fentanyl 2ml Vial) 50 mcg 1X ONCE IVP ; Start 07/12/21 at 14:15; Stop 07/12/21 at 14:16; Status DC Sodium Bicarbonate (Sodium Bicarb Adult 8.4% Syr) 50 meq STK-MED ONCE .ROUTE ; Start 07/12/21 at 21:15; Stop 07/12/21 at 21:15; Status DC Sevoflurane (Ultane) 60 ml STK-MED ONCE IH ; Start 07/12/21 at 21:15; Stop 07/12/21 at 21:15; Status DC Digoxin (Lanoxin) 500 mcg 1X ONCE IV Last administered on 07/13/21at 03:22; S tart 07/13/21 at 03:30; Stop 07/13/21 at 03:31; Status DC Fentanyl Citrate 55 ml @ 1 mls/hr CONT PRN IV SEE PROTOCOL Last administered on 07/15/21at 06:00; Start 07/13/21 at 10:30; Stop 07/16/21 at 19:27; Status DC Piperacillin Sod/ Tazobactam Sod 2.25 gm/Sodium Chloride 50 ml @ 100 mls/hr Q6HRS IV Last administered on 07/18/21at 17:10; Start 07/13/21 at 12:00; Stop 07/18/21 at 18:02; Status DC Propofol (Diprivan) 1,000 mg STK-MED ONCE IV ; Start 07/12/21 at 13:00; Stop 07/13/21 at 12:22; Status DC Digoxin (Lanoxin) 500 mcg 1X ONCE IV Last administered on 07/14/21at 04:40; Start 07/14/21 at 04:30; Stop 07/14/21 at 04:31; Status DC Magnesium Sulfate 50 ml @ 25 mls/hr 1X ONCE IV Last administered on 07/14/21at 15:22; Start 07/14/21 at 12:30; Stop 07/14/21 at 14:29; Status DC Sodium Chloride 1,000 ml @ 1,000 mls/hr 1X ONCE IV Last administered on 07/14/21at 12:15; Start 07/14/21 at 12:30; Stop 07/14/21 at 13:29; Status DC Sodium Chloride 1,000 ml @ 1,000 mls/hr 1X ONCE IV Last administered on at 15:42; Start 07/14/21 at 15:30; Stop 07/14/21 at 16:29; Status DC Sodium Chloride 500 ml @ 500 mls/hr 1X ONCE IV Last administered on 07/14/21at 12:15; Start 07/14/21 at 15:30; Stop 07/14/21 at 16:29; Status DC Norepinephrine Bitartrate 32 mg/ Dextrose 250 ml @ 3.192 mls/ hr CONT PRN IV SEE I/O RECORD Last administered on 07/15/21at 04:15; Start 07/15/21 at 03:30 Furosemide (Lasix) 20 mg 1X ONCE IVP Last administered on 07/15/21at 18:29; Start 07/15/21 at 10:00; Stop 07/15/21 at 10:01; Status DC Info (Tpn Per Pharmacy) 1 each PRN DAILY PRN MC SEE COMMENTS Last administered on 07/20/21at 08:14; Start 07/15/21 at 10:30 Sodium Chloride 90 meq/Potassium Chloride 50 meq/ Potassium Phosphate 13.6 mmol/Magnesium Sulfate 10 meq/ Multivitamins 10 ml/Zinc/Copper/ Manganese/ Selenium 1 ml/ Total Parenteral Nutrition/Amino Acids/Dextrose/ Fat Emulsion Intravenous 1,512 ml @ 63 mls/hr TPN CONT IV Last administered on 07/15/21at 22:05; Start 07/15/21 at 22:00; Stop 07/16/21 at 21:59; Status DC Furosemide (Lasix) 20 mg 1X ONCE IVP ; Start 07/15/21 at 18:30; Stop 07/15/21 at 18:31; Status DC Enoxaparin Sodium (Lovenox 40mg Syringe) 40 mg Q24H SQ Last administered on 07/20/21at 21:18; Start 07/16/21 at 21:00 Sodium Chloride 70 meq/Potassium Chloride 50 meq/ Potassium Phosphate 20 mmol/ Magnesium Sulfate 10 meq/ Multivitamins 10 ml/Zinc/Copper/ Manganese/ Selenium 1 ml/ Total Parenteral Nutrition/Amino Acids/Dextrose/ Fat Emulsion Intravenous 1,512 ml @ 63 mls/hr TPN CONT IV ; Start 07/16/21 at 22:00; Stop 07/16/21 at 13:33; Status DC Sodium Chloride 70 meq/Potassium Chloride 50 meq/ Potassium Phosphate 20 mmol/ Magnesium Sulfate 10 meq/ Multivitamins 10 ml/Zinc/Copper/ Manganese/ Selenium 1 ml/ Total Parenteral Nutrition/Amino Acids/Dextrose/ Fat Emulsion Intravenous 1,482 ml @ 61.75 mls/ hr TPN CONT IV ; Start 07/16/21 at 22:00; Stop 07/16/21 at 14:03; Status DC Sodium Chloride 70 meq/Potassium Chloride 50 meq/ Potassium Phosphate 20 mmol/ Magnesium Sulfate 10 meq/ Multivitamins 10 ml/Zinc/Copper/ Manganese/ Selenium 1 ml/ Total Parenteral Nutrition/Amino Acids/Dextrose/ Fat Emulsion Intravenous 1,512 ml @ 63 mls/hr TPN CONT IV Last administered on 07/16/21at 21:38; Start 07/16/21 at 22:00; Stop 07/17/21 at 21:59; Status DC Fentanyl Citrate (Fentanyl 2ml Vial) 25 mcg PRN Q1HR PRN IVP PAIN Last administered on 07/17/21at 20:21; Start 07/16/21 at 19:30 Labetalol HCl (Normodyne Iv Push) 10 mg PRN Q4HRS PRN IVP HYPERTENSION; Start 07/17/21 at 09:15 Potassium Phosphate 15 mmol/ Sodium Chloride 105 ml @ 52.5 mls/hr 1X ONCE IV Last administered on 07/17/21at 12:32; Start 07/17/21 at 12:00; Stop 07/17/21 at 13:59; Status DC Sodium Chloride 70 meq/Potassium Chloride 50 meq/ Potassium Phosphate 25 mmol/ Magnesium Sulfate 10 meq/ Multivitamins 10 ml/Zinc/Copper/ Manganese/ Selenium 1 ml/ Total Parenteral Nutrition/Amino Acids/Dextrose/ Fat Emulsion Intravenous 1,512 ml @ 63 mls/hr TPN CONT IV Last administered on 07/17/21at 20:22; Start 07/17/21 at 22:00; Stop 07/18/21 at 21:59; Status DC Furosemide (Lasix) 40 mg 1X ONCE IVP Last administered on 07/17/21at 12:28; Start 07/17/21 at 11:45; Stop 07/17/21 at 11:46; Status DC Sodium Acetate 70 meq/Potassium Chloride 50 meq/ Potassium Phosphate 22 mmol/ Magnesium Sulfate 8 meq/ Multivitamins 10 ml/Zinc/Copper/ Manganese/ Selenium 1 ml/ Total Parenteral Nutrition/Amino Acids/Dextrose/ Fat Emulsion Intravenous 1,512 ml @ 63 mls/hr TPN CONT IV Last administered on 07/18/21at 21:44; Start 07/18/21 at 22:00; Stop 07/19/21 at 21:59; Status DC Meropenem 500 mg/ Sodium Chloride 50 ml @ 100 mls/hr Q8HRS IV Last administered on 07/21/21at 05:44; Start 07/18/21 at 22:00 Daptomycin 450 mg/ Sodium Chloride 50 ml @ 100 mls/hr Q24H IV Last administered on 07/20/21at 20:29; Start 07/18/21 at 20:00 Sodium Chloride 40 meq/Potassium Acetate 50 meq/ Potassium Phosphate 22 mmol/ Magnesium Sulfate 8 meq/ Multivitamins 10 ml/Zinc/Copper/ Manganese/ Selenium 1 ml/ Total Parenteral Nutrition/Amino Acids/Dextrose/ Fat Emulsion Intravenous 1,680 ml @ 70 mls/hr TPN CONT IV Last administered on 07/19/21at 21:40; Start 07/19/21 at 22:00; Stop 07/20/21 at 21:59; Status DC Linezolid/Dextrose 300 ml @ 300 mls/hr Q12HR IV Last administered on 07/20/21at 21:18; Start 07/19/21 at 14:00 Sodium Chloride 40 meq/Potassium Acetate 50 meq/ Potassium Phosphate 22 mmol/ Magnesium Sulfate 6 meq/ Multivitamins 10 ml/Zinc/Copper/ Manganese/ Selenium 1 ml/ Total Parenteral Nutrition/Amino Acids/Dextrose/ Fat Emulsion Intravenous 1,680 ml @ 70 mls/hr TPN CONT IV Last administered on 07/20/21at 22:14; Start 07/20/21 at 22:00; Stop 07/21/21 at 21:59 Sodium Chloride 40 meq/Potassium Acetate 50 meq/ Potassium Phosphate 26 mmol/ Magnesium Sulfate 6 meq/ Multivitamins 10 ml/Zinc/Copper/ Manganese/ Selenium 1 ml/ Total Parenteral Nutrition/Amino Acids/Dextrose/ Fat Emulsion Intravenous 1,680 ml @ 70 mls/hr TPN CONT IV ; Start 07/21/21 at 22:00; Stop 07/22/21 at 21:59 Active Scripts Active [Pantoprazole] 40 MG Tablet.dr 40 Mg PO BIDBFRMEAL Carafate (Sucralfate) 1 Gm/10 Ml Oral.susp 1 Gm PO TIDBFRMEAL Reported Avalide 150-12.5 Mg Tablet (Irbesartan/Hydrochlorothiazide) 1 Each Tablet 1 Each PO DAILY Vitals/I & O Vital Sign - Last 24 Hours 07/20/21 07/20/21 07/20/21 07/20/21 09:00 09:15 10:00 11:00 Pulse 101 94 102 Resp 32 34 32 B/P (MAP) 140/71 143/70 134/70 Pulse Ox 100 99 97 99 O2 Delivery Ventilator Ventilator Ventilator Ventilator 07/20/21 07/20/21 07/20/21 07/20/21 11:30 11:36 11:40 12:00 Temp 98.6 98.6 Pulse 91 Resp 38 B/P (MAP) 138/77 Pulse Ox 97 95 O2 Delivery Mechanical Ventilator Ventilator Ventilator CPAP Trial 07/20/21 07/20/21 07/20/21 07/20/21 12:59 13:00 14:00 15:00 Pulse 122 103 98 Resp 36 34 36 B/P (MAP) 127/70 143/69 136/67 Pulse Ox 96 98 99 99 O2 Delivery Ventilator CPAP Trial CPAP Trial CPAP Trial 07/20/21 07/20/21 07/20/21 07/20/21 15:43 15:55 16:00 17:00 Temp 98.4 98.4 Pulse 102 101 Resp 34 38 B/P (MAP) 136/67 120/72 Pulse Ox 96 95 97 O2 Delivery Ventilator Mechanical Ventilator CPAP Trial CPAP Trial 07/20/21 07/20/21 07/20/21 07/20/21 17:52 18:00 19:00 20:00 Pulse 97 95 Resp 34 32 B/P (MAP) 137/76 130/74 Pulse Ox 99 100 100 O2 Delivery Ventilator CPAP Trial CPAP Trial Mechanical Ventilator 07/20/21 07/20/21 07/20/21 07/20/21 20:00 20:00 21:00 22:00 Temp 99.7 99.7 Pulse 95 101 99 Resp 32 36 32 B/P (MAP) 144/76 156/80 154/82 Pulse Ox 100 99 100 91 O2 Delivery Ventilator Ventilator Ventilator Ventilator 07/20/21 07/20/21 07/20/21 07/21/21 22:30 23:00 23:59 00:01 Temp 99.3 99.3 Pulse 96 100 Resp 36 34 B/P (MAP) 140/71 107/56 Pulse Ox 99 98 98 O2 Delivery Ventilator Ventilator Mechanical Ventilator Ventilator 07/21/21 07/21/21 07/21/21 07/21/21 00:35 01:00 02:00 02:15 Pulse 85 86 Resp 32 32 B/P (MAP) 117/57 127/59 Pulse Ox 99 100 100 99 O2 Delivery Ventilator Ventilator Ventilator Ventilator 07/21/21 07/21/21 07/21/21 07/21/21 03:00 04:00 04:00 04:36 Temp 100.3 100.3 Pulse 88 82 Resp 34 34 B/P (MAP) 113/58 113/52 Pulse Ox 98 98 99 O2 Delivery Ventilator Mechanical Ventilator Ventilator Ventilator 07/21/21 07/21/21 07/21/21 07/21/21 05:00 06:00 07:00 07:19 Temp 98.5 98.5 Pulse 80 80 82 Resp 34 32 33 B/P (MAP) 124/58 119/57 121/60 Pulse Ox 98 98 97 98 O2 Delivery Ventilator Ventilator Ventilator Ventilator 07/21/21 07/21/21 08:00 08:10 Pulse Ox 96 O2 Delivery Mechanical Ventilator Ventilator Intake and Output 07/20/21 07/20/21 07/21/21 15:00 23:00 07:00 Intake Total 350 ml 872 ml Output Total 315 ml 445 ml 690 ml Balance 35 ml 427 ml -690 ml Justicifation of Admission Dx: Justifications for Admission: Justification of Admission Dx: Yes Sepsis: Hemodynamic Instability ROME CANTOR MD July 21, 2021 08:56
--- NOTE | 2021-07-21 08:58 | PDOC ---
DATE OF SERVICE DATE: 07/21/21 TIME: 08:56 SUBJECTIVE ROS Intubated, on vent. following some commands OBJECTIVE Vital Signs Vital Signs Date Time Temp Pulse Resp B/P (MAP) Pulse Ox O2 Delivery O2 Flow Rate FiO2 07/21/21 08:10 96 Ventilator 07/21/21 08:00 79 30 116/53 07/21/21 07:00 98.5 98.5 I & 0 Intake and Output 07/21/21 06:59 Intake Total 1222 ml Output Total 1175 ml Balance 47 ml IV Total 1222 ml Output Urine Total 1115 ml Drainage Total 60 ml # Bowel Movements 1 PHYSICAL EXAM Physical Exam GENERAL: orally intubated HEENT: Both pupils are round and reacting. orally intubated. NECK: Supple, no JVP, LUNGS: Clear. Decreased breath sounds. HEART: S1, S2 regular. No gallop or murmur. ABDOMEN: Multiple tubes in the post-surgical dressing EXTREMITIES: No edema, cyanosis. SKIN: Unremarkable. NEUROLOGIC: sedated and intubated. Car[place]o + DIAGNOSIS/ASSESSMENT Assessment & Plan SHELDON-- ATN/ Hypotensive/Bowel perf . UA unremarkable , CT scan No e/o BALLARD/Hydronephrosis , Renal function stable E-Lytes stable . Supportive care,maintain fluid balance, avoid Nephrotoxins SHELDON in 2018, resolved. No Interval labs available HyperNatremia- mild- Needs free water, adjust Na in TPN Persistent encephalopathyCould be hepatic encephalopathy as well as sepsis contributing as well Cannot exclude the possibly of metastatic melanoma to the brain. Renal Calculus 5 mm nonobstructing calculus is seen involving the lower pole of the right kidney. Perforated viscus, status post exploratory laparotomy, reduction of gastric volvulus, hiatal hernia repair, gastrostomy tube placement and duodenoscopy with tube placement done. 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 CT chest/Abdomen Redemonstration of numerous metastatic disease in the lungs and throughout the abdomen. Acute Respiratory failure, requiring ventilatory support. History of prostate cancer. HypoPhos- Normal ; Adjust in TPN as indicated Nutrition- On TPN COMMENT/RELEVANT DATA Meds Current Medications Medications (Trade) Dose Ordered Sig/Armin Start Time Stop Time Status Last Admin Dose Admin Albumin Human 500 ml @ 125 mls/hr 1X ONCE 07/12/21 12:45 07/12/21 16:44 DC Cefoxitin Sodium (Mefoxin) 1 gm Q6H 07/12/21 14:00 07/13/21 02:01 DC 07/13/21 01:47 1 GM Ceftriaxone Sodium (Rocephin) 2 gm Q24H 07/12/21 07:00 07/13/21 09:46 DC 07/13/21 06:30 2 GM Daptomycin 450 mg/ Sodium Chloride 50 ml @ 100 mls/hr Q24H 07/18/21 20:00 07/20/21 20:29 100 MLS/HR Dexamethasone Sodium Phosphate (Decadron) 4 mg STK-MED ONCE 07/12/21 07:43 07/12/21 07:44 DC Digoxin (Lanoxin) 500 mcg 1X ONCE 07/14/21 04:30 07/14/21 04:31 DC 07/14/21 04:40 500 MCG Enoxaparin Sodium (Lovenox 30mg Syringe) 30 mg Q24H 07/12/21 21:00 07/16/21 09:07 DC 07/15/21 21:04 30 MG Enoxaparin Sodium (Lovenox 40mg Syringe) 40 mg Q24H 07/16/21 21:00 07/20/21 21:18 40 MG Ephedrine Sulfate (ePHEDrine PF IN SALINE SYRINGE) 50 mg STK-MED ONCE 07/12/21 10:27 07/12/21 10:27 DC Etomidate (Amidate) 20 mg STK-MED ONCE 07/12/21 08:30 07/12/21 08:30 DC Famotidine (Pepcid Vial) 20 mg QHS 07/12/21 21:00 07/20/21 21:17 20 MG Fentanyl Citrate (Fentanyl 2ml Vial) 25 mcg PRN Q1HR PRN 07/16/21 19:30 07/17/21 20:21 25 MCG Furosemide (Lasix) 40 mg 1X ONCE 07/17/21 11:45 07/17/21 11:46 DC 07/17/21 12:28 40 MG Glycerin/ Hypromellose/ Polyethylene (Artificial Tears) 1 drop PRN Q1HR PRN 07/12/21 12:45 Glycopyrrolate (Robinul) 1 mg STK-MED ONCE 07/12/21 07:45 07/12/21 07:45 DC Hydromorphone HCl (Dilaudid) 0.5 mg PRN Q10MIN PRN 07/12/21 08:00 07/13/21 07:59 DC Info (Tpn Per Pharmacy) 1 each PRN DAILY PRN 07/15/21 10:30 07/21/21 08:53 1 EACH Labetalol HCl (Normodyne Iv Push) 10 mg PRN Q4HRS PRN 07/17/21 09:15 Linezolid/Dextrose 300 ml @ 300 mls/hr Q12HR 07/19/21 14:00 07/20/21 21:18 300 MLS/HR Magnesium Sulfate 50 ml @ 25 mls/hr 1X ONCE 07/14/21 12:30 07/14/21 14:29 DC 07/14/21 15:22 25 MLS/HR Meropenem 500 mg/ Sodium Chloride 50 ml @ 100 mls/hr Q8HRS 07/18/21 22:00 07/21/21 05:44 100 MLS/HR Metronidazole 100 ml @ 100 mls/hr Q8HRS 07/12/21 14:00 07/13/21 09:46 DC 07/13/21 06:15 100 MLS/HR Midazolam HCl 100 ml @ 1 mls/hr CONT PRN 07/12/21 12:45 07/16/21 19:27 DC 07/12/21 16:55 1 MLS/HR Midazolam HCl (Versed) 2 mg STK-MED ONCE 07/12/21 07:44 07/12/21 07:44 DC Morphine Sulfate (Morphine Sulfate) 1 mg PRN Q1HR PRN 07/12/21 12:15 07/12/21 13:51 DC Naloxone HCl (Narcan) 0.4 mg PRN Q2MIN PRN 07/12/21 12:15 Neostigmine [place] (Neostigmine Methylsulfate) 5 mg STK-MED ONCE 07/12/21 07:44 07/12/21 07:44 DC Norepinephrine Bitartrate 32 mg/ Dextrose 250 ml @ 3.192 mls/ hr CONT PRN 07/15/21 03:30 07/15/21 04:15 15.961 MLS/HR Norepinephrine Bitartrate 8 mg/ Dextrose 258 ml @ 11.204 mls/ hr CONT PRN 07/12/21 13:45 07/15/21 03:14 DC 07/14/21 23:22 56.018 MLS/HR Ondansetron HCl (Zofran) 4 mg PRN Q6HRS PRN 07/12/21 12:15 Phenylephrine HCl (Lionel-Synephrine Inj) 10 mg STK-MED ONCE 07/12/21 11:54 07/12/21 11:55 DC Phenylephrine HCl (PHENYLEPHRINE in 0.9% NACL PF) 1 mg STK-MED ONCE 07/12/21 10:27 07/12/21 10:27 DC Piperacillin Sod/ Tazobactam Sod 2.25 gm/Sodium Chloride 50 ml @ 100 mls/hr Q6HRS 07/13/21 12:00 07/18/21 18:02 DC 07/18/21 17:10 100 MLS/HR Potassium Phosphate 15 mmol/ Sodium Chloride 105 ml @ 52.5 mls/hr 1X ONCE 07/17/21 12:00 07/17/21 13:59 DC 07/17/21 12:32 52.5 MLS/HR Prochlorperazine Edisylate (Compazine) 5 mg PACU PRN PRN 07/12/21 08:00 07/13/21 07:59 DC Propofol (Diprivan) 1,000 mg STK-MED ONCE 07/12/21 13:00 07/13/21 12:22 DC Ringer's Solution 1,000 ml @ 100 mls/hr Q10H 07/12/21 12:15 07/13/21 19:33 DC 07/13/21 10:39 100 MLS/HR Rocuronium [place] (Zemuron) 100 mg STK-MED ONCE 07/12/21 09:34 07/12/21 09:34 DC Sevoflurane (Ultane) 60 ml STK-MED ONCE 07/12/21 21:15 07/12/21 21:15 DC Sodium Bicarbonate 150 meq/Dextrose 1,150 ml @ 75 mls/hr [id number] 07/12/21 14:30 07/13/21 19:34 DC 07/13/21 05:37 75 MLS/HR Sodium Acetate 70 meq/Potassium Chloride 50 meq/ Potassium Phosphate 22 mmol/ Magnesium Sulfate 8 meq/ Multivitamins 10 ml/Zinc/Copper/ Manganese/ Selenium 1 ml/ Total Parenteral Nutrition/Amino Acids/Dextrose/ Fat Emulsion Intravenous 1,512 ml @ 63 mls/hr TPN CONT 07/18/21 22:00 07/19/21 21:59 DC 07/18/21 21:44 63 MLS/HR Sodium Bicarbonate (Sodium Bicarb Adult 8.4% Syr) 50 meq STK-MED ONCE 07/12/21 21:15 07/12/21 21:15 DC Sodium Chloride (Normal Saline Flush) 3 ml QSHIFT PRN 07/12/21 12:15 Sodium Chloride 40 meq/Potassium Acetate 50 meq/ Potassium Phosphate 22 mmol/ Magnesium Sulfate 6 meq/ Multivitamins 10 ml/Zinc/Copper/ Manganese/ Selenium 1 ml/ Total Parenteral Nutrition/Amino Acids/Dextrose/ Fat Emulsion Intravenous 1,680 ml @ 70 mls/hr TPN CONT 07/20/21 22:00 07/21/21 21:59 07/20/21 22:14 70 MLS/HR Sodium Chloride 40 meq/Potassium Acetate 50 meq/ Potassium Phosphate 22 mmol/ Magnesium Sulfate 8 meq/ Multivitamins 10 ml/Zinc/Copper/ Manganese/ Selenium 1 ml/ Total Parenteral Nutrition/Amino Acids/Dextrose/ Fat Emulsion Intravenous 1,680 ml @ 70 mls/hr TPN CONT 07/19/21 22:00 07/20/21 21:59 DC 07/19/21 21:40 70 MLS/HR Sodium Chloride 40 meq/Potassium Acetate 50 meq/ Potassium Phosphate 26 mmol/ Magnesium Sulfate 6 meq/ Multivitamins 10 ml/Zinc/Copper/ Manganese/ Selenium 1 ml/ Total Parenteral Nutrition/Amino Acids/Dextrose/ Fat Emulsion Intravenous 1,680 ml @ 70 mls/hr TPN CONT 07/21/21 22:00 07/21/21 08:54 DC Sodium Chloride 40 meq/Potassium Acetate 60 meq/ Potassium Phosphate 30 mmol/ Magnesium Sulfate 6 meq/ Multivitamins 10 ml/Zinc/Copper/ Manganese/ Selenium 1 ml/ Total Parenteral Nutrition/Amino Acids/Dextrose/ Fat Emulsion Intravenous 1,680 ml @ 70 mls/hr TPN CONT 07/21/21 22:00 07/22/21 21:59 Sodium Chloride 70 meq/Potassium Chloride 50 meq/ Potassium Phosphate 20 mmol/ Magnesium Sulfate 10 meq/ Multivitamins 10 ml/Zinc/Copper/ Manganese/ Selenium 1 ml/ Total Parenteral Nutrition/Amino Acids/Dextrose/ Fat Emulsion Intravenous 1,512 ml @ 63 mls/hr TPN CONT 07/16/21 22:00 07/17/21 21:59 DC 07/16/21 21:38 63 MLS/HR Sodium Chloride 70 meq/Potassium Chloride 50 meq/ Potassium Phosphate 25 mmol/ Magnesium Sulfate 10 meq/ Multivitamins 10 ml/Zinc/Copper/ Manganese/ Selenium 1 ml/ Total Parenteral Nutrition/Amino Acids/Dextrose/ Fat Emulsion Intravenous 1,512 ml @ 63 mls/hr TPN CONT 07/17/21 22:00 07/18/21 21:59 DC 07/17/21 20:22 63 MLS/HR Sodium Chloride 90 meq/Potassium Chloride 50 meq/ Potassium Phosphate 13.6 mmol/Magnesium Sulfate 10 meq/ Multivitamins 10 ml/Zinc/Copper/ Manganese/ Selenium 1 ml/ Total Parenteral Nutrition/Amino Acids/Dextrose/ Fat Emulsion Intravenous 1,512 ml @ 63 mls/hr TPN CONT 07/15/21 22:00 07/16/21 21:59 DC 07/15/21 22:05 63 MLS/HR Succinylcholine Chloride (Anectine) 200 mg STK-MED ONCE 07/12/21 07:44 07/12/21 07:44 DC Lab Laboratory Tests Test 07/21/21 05:00 White Blood Count 16.8 x10^3/uL (4.0-11.0) Red Blood Count 3.52 x10^6/uL (4.30-5.70) Hemoglobin 10.1 g/dL (13.0-17.5) Hematocrit 31.0 % (39.0-53.0) Mean Corpuscular Volume 88 fL (79-100) Mean Corpuscular Hemoglobin 29 pg (25-35) Mean Corpuscular Hemoglobin Concent 33 g/dL (31-37) Red Cell Distribution Width 15.8 % (11.5-14.5) Platelet Count 327 x10^3/uL (140-400) Neutrophils (%) (Auto) 90 % (31-73) Lymphocytes (%) (Auto) 4 % (24-48) Monocytes (%) (Auto) 6 % (0-9) Eosinophils (%) (Auto) 0 % (0-3) Basophils (%) (Auto) 0 % (0-3) Neutrophils # (Auto) 15.0 x10^3/uL (1.8-7.7) Lymphocytes # (Auto) 0.7 x10^3/uL (1.0-4.8) Monocytes # (Auto) 1.0 x10^3/uL (0.0-1.1) Eosinophils # (Auto) 0.0 x10^3/uL (0.0-0.7) Basophils # (Auto) 0.0 x10^3/uL (0.0-0.2) Sodium Level 145 mmol/L (136-145) Potassium Level 3.6 mmol/L (3.5-5.1) Chloride Level 115 mmol/L (98-107) Carbon Dioxide Level 21 mmol/L (21-32) Anion Gap 9 (6-14) Blood Urea Nitrogen 53 mg/dL (8-26) Creatinine 1.2 mg/dL (0.7-1.3) Estimated GFR (Cockcroft-Gault) 57.5 BUN/Creatinine Ratio 44 (6-20) Glucose Level 115 mg/dL (70-99) Calcium Level 7.5 mg/dL (8.5-10.1) Phosphorus Level 3.2 mg/dL (2.6-4.7) Magnesium Level 2.3 mg/dL (1.8-2.4) Total Bilirubin 1.2 mg/dL (0.2-1.0) Aspartate Amino Transf (AST/SGOT) 95 U/L (15-37) Alanine Aminotransferase (ALT/SGPT) 96 U/L (16-63) Alkaline Phosphatase 196 U/L (46-116) Total Protein 4.9 g/dL (6.4-8.2) Albumin 1.0 g/dL (3.4-5.0) Albumin/Globulin Ratio 0.3 (1.0-1.7) Results All relevant outside records, renal labs, imaging studies, telemetry/EKG's were reviewed. Justicifation of Admission Dx: Justifications for Admission: Justification of Admission Dx: Yes Sepsis: Hemodynamic Instability JENNIE MOODY MD July 21, 2021 08:58
--- NOTE | 2021-07-21 10:41 | PDOC ---
PULMONARY PROGRESS NOTES DATE: 07/21/21 TIME: 10:41 Subjective T-max yesterday 100.3 Patient is off Versed for several days. Patient is now following some commands. Moves his head to commands. Remains on assist control mode, 40% FiO2 Vitals Vital Signs Date Time Temp Pulse Resp B/P (MAP) Pulse Ox O2 Delivery O2 Flow Rate FiO2 07/21/21 09:00 84 32 127/57 99 Ventilator 07/21/21 07:00 98.5 98.5 Lungs: Clear Cardiovascular: S1, S2 Abdomen: Soft, Other (Distended) Extremities: Other (Significant scrotal edema.) Skin: Warm Labs Laboratory Tests Test 07/20/21 05:45 07/21/21 05:00 White Blood Count 18.2 x10^3/uL (4.0-11.0) 16.8 x10^3/uL (4.0-11.0) Red Blood Count 3.73 x10^6/uL (4.30-5.70) 3.52 x10^6/uL (4.30-5.70) Hemoglobin 10.8 g/dL (13.0-17.5) 10.1 g/dL (13.0-17.5) Hematocrit 31.9 % (39.0-53.0) 31.0 % (39.0-53.0) Mean Corpuscular Volume 85 fL (79-100) 88 fL (79-100) Mean Corpuscular Hemoglobin 29 pg (25-35) 29 pg (25-35) Mean Corpuscular Hemoglobin Concent 34 g/dL (31-37) 33 g/dL (31-37) Red Cell Distribution Width 15.4 % (11.5-14.5) 15.8 % (11.5-14.5) Platelet Count 381 x10^3/uL (140-400) 327 x10^3/uL (140-400) Neutrophils (%) (Auto) 88 % (31-73) 90 % (31-73) Lymphocytes (%) (Auto) 4 % (24-48) 4 % (24-48) Monocytes (%) (Auto) 7 % (0-9) 6 % (0-9) Eosinophils (%) (Auto) 0 % (0-3) 0 % (0-3) Basophils (%) (Auto) 0 % (0-3) 0 % (0-3) Neutrophils # (Auto) 16.1 x10^3/uL (1.8-7.7) 15.0 x10^3/uL (1.8-7.7) Lymphocytes # (Auto) 0.8 x10^3/uL (1.0-4.8) 0.7 x10^3/uL (1.0-4.8) Monocytes # (Auto) 1.3 x10^3/uL (0.0-1.1) 1.0 x10^3/uL (0.0-1.1) Eosinophils # (Auto) 0.0 x10^3/uL (0.0-0.7) 0.0 x10^3/uL (0.0-0.7) Basophils # (Auto) 0.0 x10^3/uL (0.0-0.2) 0.0 x10^3/uL (0.0-0.2) Segmented Neutrophils % 89 % (35-66) Band Neutrophils % 2 % (0-9) Lymphocytes % 5 % (24-48) Atypical Lymphocytes % (Manual) 2 % (0-0) Monocytes % 2 % (0-10) Platelet Estimate Adequate (ADEQUATE) Sodium Level 147 mmol/L (136-145) 145 mmol/L (136-145) Potassium Level 3.9 mmol/L (3.5-5.1) 3.6 mmol/L (3.5-5.1) Chloride Level 116 mmol/L (98-107) 115 mmol/L (98-107) Carbon Dioxide Level 23 mmol/L (21-32) 21 mmol/L (21-32) Anion Gap 8 (6-14) 9 (6-14) Blood Urea Nitrogen 57 mg/dL (8-26) 53 mg/dL (8-26) Creatinine 1.2 mg/dL (0.7-1.3) 1.2 mg/dL (0.7-1.3) Estimated GFR (Cockcroft-Gault) 57.5 57.5 Glucose Level 126 mg/dL (70-99) 115 mg/dL (70-99) Calcium Level 7.3 mg/dL (8.5-10.1) 7.5 mg/dL (8.5-10.1) Phosphorus Level 3.3 mg/dL (2.6-4.7) 3.2 mg/dL (2.6-4.7) Magnesium Level 2.4 mg/dL (1.8-2.4) 2.3 mg/dL (1.8-2.4) Triglycerides Level 168 mg/dL (0-150) BUN/Creatinine Ratio 44 (6-20) Total Bilirubin 1.2 mg/dL (0.2-1.0) Aspartate Amino Transf (AST/SGOT) 95 U/L (15-37) Alanine Aminotransferase (ALT/SGPT) 96 U/L (16-63) Alkaline Phosphatase 196 U/L (46-116) Total Protein 4.9 g/dL (6.4-8.2) Albumin 1.0 g/dL (3.4-5.0) Albumin/Globulin Ratio 0.3 (1.0-1.7) Laboratory Tests Test 07/21/21 05:00 White Blood Count 16.8 x10^3/uL (4.0-11.0) Red Blood Count 3.52 x10^6/uL (4.30-5.70) Hemoglobin 10.1 g/dL (13.0-17.5) Hematocrit 31.0 % (39.0-53.0) Mean Corpuscular Volume 88 fL (79-100) Mean Corpuscular Hemoglobin 29 pg (25-35) Mean Corpuscular Hemoglobin Concent 33 g/dL (31-37) Red Cell Distribution Width 15.8 % (11.5-14.5) Platelet Count 327 x10^3/uL (140-400) Neutrophils (%) (Auto) 90 % (31-73) Lymphocytes (%) (Auto) 4 % (24-48) Monocytes (%) (Auto) 6 % (0-9) Eosinophils (%) (Auto) 0 % (0-3) Basophils (%) (Auto) 0 % (0-3) Neutrophils # (Auto) 15.0 x10^3/uL (1.8-7.7) Lymphocytes # (Auto) 0.7 x10^3/uL (1.0-4.8) Monocytes # (Auto) 1.0 x10^3/uL (0.0-1.1) Eosinophils # (Auto) 0.0 x10^3/uL (0.0-0.7) Basophils # (Auto) 0.0 x10^3/uL (0.0-0.2) Sodium Level 145 mmol/L (136-145) Potassium Level 3.6 mmol/L (3.5-5.1) Chloride Level 115 mmol/L (98-107) Carbon Dioxide Level 21 mmol/L (21-32) Anion Gap 9 (6-14) Blood Urea Nitrogen 53 mg/dL (8-26) Creatinine 1.2 mg/dL (0.7-1.3) Estimated GFR (Cockcroft-Gault) 57.5 BUN/Creatinine Ratio 44 (6-20) Glucose Level 115 mg/dL (70-99) Calcium Level 7.5 mg/dL (8.5-10.1) Phosphorus Level 3.2 mg/dL (2.6-4.7) Magnesium Level 2.3 mg/dL (1.8-2.4) Total Bilirubin 1.2 mg/dL (0.2-1.0) Aspartate Amino Transf (AST/SGOT) 95 U/L (15-37) Alanine Aminotransferase (ALT/SGPT) 96 U/L (16-63) Alkaline Phosphatase 196 U/L (46-116) Total Protein 4.9 g/dL (6.4-8.2) Albumin 1.0 g/dL (3.4-5.0) Albumin/Globulin Ratio 0.3 (1.0-1.7) Medications Active Scripts Medications Dose Route/Sig Max Daily Dose Days Date Category [Pantoprazole] 40 MG Tablet.dr 40 Mg PO BIDBFRMEAL 06/22/17 Rx Carafate (Sucralfate) 1 Gm/10 Ml Oral.susp 1 Gm PO TIDBFRMEAL 06/22/17 Rx Avalide 150-12.5 Mg Tablet (Irbesartan/Hydrochlorothiazide) 1 Each Tablet 1 Each PO DAILY 06/19/[address] chest dated 07/19/2021 reviewed. Bilateral lung nodules consistent with metastatic disease. Mild to moderate bilateral pleural effusions with associated compressive atelectasis. Chest x-ray reviewed 07/17/2021. Mild progression of interstitial infiltrates and pleural effusion consistent with CHF. There is a skinfold on the left apex unlikely pneumothorax. Impression . Acute respiratory failure multifactorial status post exploratory laparotomy for perforated viscus Septic shock. Resolved. Off Levophed. Fever, per ID Acute renal failure. History of prostate cancer Severe protein malnutrition present upon admission. 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 Bilateral lung nodules suggestive of metastasis to the lungs. Bilateral moderate pleural effusions with associated atelectasis related to low oncotic pressure. CT chest reviewed dated 07/19/2021 Toxic metabolic encephalopathy, improving Abnormal liver function test. \ Plan . Updated 07/21 Patient more awake alert Currently on pressure support of 16 tidal volume approximately 400 Dropped his pressure support to 5 his tidal volume was only about 250 Off of pressors Continue broad-spectrum antibiotics per ID Labs reviewed ABG noted PO2 of 112 from 5 1 Follow surgery input Discussed with son at the bedside CCT 30 minutes Continue present assist-control mode. Oxygen requirement is stable. We will start CPAP trials daily to improve exercise capacity of respiratory muscles. Not ready for extubation. fentanyl , use as needed. CT head with no evidence of metastatic disease to the brain. Await surgical input regarding IR consult for possible drain in abnormal fluid collection in the abdomen. Continue as needed Lasix. Pleural effusion can be monitored. No need for drainage at present. off Levophed. Keep mean arterial pressure above 60. Empiric broad-spectrum antibiotics per infectious disease. Follow-up on cultures. No new cultures. Final pathology from the bowel surgery consistent with metastatic melanoma. Oncology consulted. Discussed with son in detail at the bedside. I informed him that I have initiated CPAP trials. He is very weak. He may end up with with a tracheostomy to help facilitate weaning. We will keep him posted. Discussed with RN and RT. addend: d/w Dr Fonseca. OK to consult IR. I have also informed him that he may need Tracheostomy if no improvement in next few days. Critical care time 30 minutes. ANTELMO ANAND MD July 21, 2021 10:41
--- NOTE | 2021-07-21 11:29 | PDOC ---
SURGICAL PROGRESS NOTE DATE: 07/21/21 TIME: 11:25 Subjective awake \following some commands d/w nursing, some wound drainage, some g tube drainage still on pressors Vital Signs Vital Signs Date Time Temp Pulse Resp B/P (MAP) Pulse Ox O2 Delivery O2 Flow Rate FiO2 07/21/21 09:00 84 32 127/57 99 Ventilator 07/21/21 07:00 98.5 98.5 I&O Intake and Output 07/21/21 07:00 Intake Total 1222 ml Output Total 1450 ml Balance -228 ml IV Total 1222 ml Output Urine Total 1110 ml Drainage Total 340 ml # Bowel Movements 1 PATIENT HAS A PEDRO: Yes General: Cooperative [facility] Abdomen: Soft, Other (some drainage from lower portion of incision, g tube with drainage around tube site) Labs Laboratory Tests Test 07/20/21 05:45 07/21/21 05:00 White Blood Count 18.2 x10^3/uL (4.0-11.0) 16.8 x10^3/uL (4.0-11.0) Red Blood Count 3.73 x10^6/uL (4.30-5.70) 3.52 x10^6/uL (4.30-5.70) Hemoglobin 10.8 g/dL (13.0-17.5) 10.1 g/dL (13.0-17.5) Hematocrit 31.9 % (39.0-53.0) 31.0 % (39.0-53.0) Mean Corpuscular Volume 85 fL (79-100) 88 fL (79-100) Mean Corpuscular Hemoglobin 29 pg (25-35) 29 pg (25-35) Mean Corpuscular Hemoglobin Concent 34 g/dL (31-37) 33 g/dL (31-37) Red Cell Distribution Width 15.4 % (11.5-14.5) 15.8 % (11.5-14.5) Platelet Count 381 x10^3/uL (140-400) 327 x10^3/uL (140-400) Neutrophils (%) (Auto) 88 % (31-73) 90 % (31-73) Lymphocytes (%) (Auto) 4 % (24-48) 4 % (24-48) Monocytes (%) (Auto) 7 % (0-9) 6 % (0-9) Eosinophils (%) (Auto) 0 % (0-3) 0 % (0-3) Basophils (%) (Auto) 0 % (0-3) 0 % (0-3) Neutrophils # (Auto) 16.1 x10^3/uL (1.8-7.7) 15.0 x10^3/uL (1.8-7.7) Lymphocytes # (Auto) 0.8 x10^3/uL (1.0-4.8) 0.7 x10^3/uL (1.0-4.8) Monocytes # (Auto) 1.3 x10^3/uL (0.0-1.1) 1.0 x10^3/uL (0.0-1.1) Eosinophils # (Auto) 0.0 x10^3/uL (0.0-0.7) 0.0 x10^3/uL (0.0-0.7) Basophils # (Auto) 0.0 x10^3/uL (0.0-0.2) 0.0 x10^3/uL (0.0-0.2) Segmented Neutrophils % 89 % (35-66) Band Neutrophils % 2 % (0-9) Lymphocytes % 5 % (24-48) Atypical Lymphocytes % (Manual) 2 % (0-0) Monocytes % 2 % (0-10) Platelet Estimate Adequate (ADEQUATE) Sodium Level 147 mmol/L (136-145) 145 mmol/L (136-145) Potassium Level 3.9 mmol/L (3.5-5.1) 3.6 mmol/L (3.5-5.1) Chloride Level 116 mmol/L (98-107) 115 mmol/L (98-107) Carbon Dioxide Level 23 mmol/L (21-32) 21 mmol/L (21-32) Anion Gap 8 (6-14) 9 (6-14) Blood Urea Nitrogen 57 mg/dL (8-26) 53 mg/dL (8-26) Creatinine 1.2 mg/dL (0.7-1.3) 1.2 mg/dL (0.7-1.3) Estimated GFR (Cockcroft-Gault) 57.5 57.5 Glucose Level 126 mg/dL (70-99) 115 mg/dL (70-99) Calcium Level 7.3 mg/dL (8.5-10.1) 7.5 mg/dL (8.5-10.1) Phosphorus Level 3.3 mg/dL (2.6-4.7) 3.2 mg/dL (2.6-4.7) Magnesium Level 2.4 mg/dL (1.8-2.4) 2.3 mg/dL (1.8-2.4) Triglycerides Level 168 mg/dL (0-150) BUN/Creatinine Ratio 44 (6-20) Total Bilirubin 1.2 mg/dL (0.2-1.0) Aspartate Amino Transf (AST/SGOT) 95 U/L (15-37) Alanine Aminotransferase (ALT/SGPT) 96 U/L (16-63) Alkaline Phosphatase 196 U/L (46-116) Total Protein 4.9 g/dL (6.4-8.2) Albumin 1.0 g/dL (3.4-5.0) Albumin/Globulin Ratio 0.3 (1.0-1.7) Laboratory Tests Test 07/21/21 05:00 White Blood Count 16.8 x10^3/uL (4.0-11.0) Red Blood Count 3.52 x10^6/uL (4.30-5.70) Hemoglobin 10.1 g/dL (13.0-17.5) Hematocrit 31.0 % (39.0-53.0) Mean Corpuscular Volume 88 fL (79-100) Mean Corpuscular Hemoglobin 29 pg (25-35) Mean Corpuscular Hemoglobin Concent 33 g/dL (31-37) Red Cell Distribution Width 15.8 % (11.5-14.5) Platelet Count 327 x10^3/uL (140-400) Neutrophils (%) (Auto) 90 % (31-73) Lymphocytes (%) (Auto) 4 % (24-48) Monocytes (%) (Auto) 6 % (0-9) Eosinophils (%) (Auto) 0 % (0-3) Basophils (%) (Auto) 0 % (0-3) Neutrophils # (Auto) 15.0 x10^3/uL (1.8-7.7) Lymphocytes # (Auto) 0.7 x10^3/uL (1.0-4.8) Monocytes # (Auto) 1.0 x10^3/uL (0.0-1.1) Eosinophils # (Auto) 0.0 x10^3/uL (0.0-0.7) Basophils # (Auto) 0.0 x10^3/uL (0.0-0.2) Sodium Level 145 mmol/L (136-145) Potassium Level 3.6 mmol/L (3.5-5.1) Chloride Level 115 mmol/L (98-107) Carbon Dioxide Level 21 mmol/L (21-32) Anion Gap 9 (6-14) Blood Urea Nitrogen 53 mg/dL (8-26) Creatinine 1.2 mg/dL (0.7-1.3) Estimated GFR (Cockcroft-Gault) 57.5 BUN/Creatinine Ratio 44 (6-20) Glucose Level 115 mg/dL (70-99) Calcium Level 7.5 mg/dL (8.5-10.1) Phosphorus Level 3.2 mg/dL (2.6-4.7) Magnesium Level 2.3 mg/dL (1.8-2.4) Total Bilirubin 1.2 mg/dL (0.2-1.0) Aspartate Amino Transf (AST/SGOT) 95 U/L (15-37) Alanine Aminotransferase (ALT/SGPT) 96 U/L (16-63) Alkaline Phosphatase 196 U/L (46-116) Total Protein 4.9 g/dL (6.4-8.2) Albumin 1.0 g/dL (3.4-5.0) Albumin/Globulin Ratio 0.3 (1.0-1.7) Assessment/Plan supportive care, wound care Justicifation of Admission Dx: Justifications for Admission: Justification of Admission Dx: Yes Sepsis: Hemodynamic Instability [employer] A[employer] July 21, 2021 11:29
--- NOTE | 2021-07-21 14:04 | PDOC ---
Infectious Disease Note Subjective: Subjective Pt is intubated on vent Startles to verbal stimuli TEMP 100*f Vital Signs: Vital Signs Vital Signs Date Time Temp Pulse Resp B/P (MAP) Pulse Ox O2 Delivery O2 Flow Rate FiO2 07/21/21 13:00 78 30 123/61 99 Ventilator 07/21/21 12:00 100.0 100.0 Physical Exam: PHYSICAL EXAM GENERAL: , orally intubated [facility] opens eyes HEENT: Both pupils are round and reacting. No conjunctival lesion. No lesion in the mouth. Mouth cannot be visualized much as orally intubated. LUNGS: . Decreased breath sounds. HEART: S1, S2 regular. No murmur. ABDOMEN: Multiple tubes in the post-surgical dressing not opened. scrotal swelling, conway in place EXTREMITIES: No edema, cyanosis. SKIN: No generalized rash NEUROLOGIC: opens eyes, trying to awaken Medications: Inpatient Meds: Medications reviewed. Labs: Lab Laboratory Tests Test 07/21/21 05:00 White Blood Count 16.8 x10^3/uL (4.0-11.0) Red Blood Count 3.52 x10^6/uL (4.30-5.70) Hemoglobin 10.1 g/dL (13.0-17.5) Hematocrit 31.0 % (39.0-53.0) Mean Corpuscular Volume 88 fL (79-100) Mean Corpuscular Hemoglobin 29 pg (25-35) Mean Corpuscular Hemoglobin Concent 33 g/dL (31-37) Red Cell Distribution Width 15.8 % (11.5-14.5) Platelet Count 327 x10^3/uL (140-400) Neutrophils (%) (Auto) 90 % (31-73) Lymphocytes (%) (Auto) 4 % (24-48) Monocytes (%) (Auto) 6 % (0-9) Eosinophils (%) (Auto) 0 % (0-3) Basophils (%) (Auto) 0 % (0-3) Neutrophils # (Auto) 15.0 x10^3/uL (1.8-7.7) Lymphocytes # (Auto) 0.7 x10^3/uL (1.0-4.8) Monocytes # (Auto) 1.0 x10^3/uL (0.0-1.1) Eosinophils # (Auto) 0.0 x10^3/uL (0.0-0.7) Basophils # (Auto) 0.0 x10^3/uL (0.0-0.2) Sodium Level 145 mmol/L (136-145) Potassium Level 3.6 mmol/L (3.5-5.1) Chloride Level 115 mmol/L (98-107) Carbon Dioxide Level 21 mmol/L (21-32) Anion Gap 9 (6-14) Blood Urea Nitrogen 53 mg/dL (8-26) Creatinine 1.2 mg/dL (0.7-1.3) Estimated GFR (Cockcroft-Gault) 57.5 BUN/Creatinine Ratio 44 (6-20) Glucose Level 115 mg/dL (70-99) Calcium Level 7.5 mg/dL (8.5-10.1) Phosphorus Level 3.2 mg/dL (2.6-4.7) Magnesium Level 2.3 mg/dL (1.8-2.4) Total Bilirubin 1.2 mg/dL (0.2-1.0) Aspartate Amino Transf (AST/SGOT) 95 U/L (15-37) Alanine Aminotransferase (ALT/SGPT) 96 U/L (16-63) Alkaline Phosphatase 196 U/L (46-116) Total Protein 4.9 g/dL (6.4-8.2) Albumin 1.0 g/dL (3.4-5.0) Albumin/Globulin Ratio 0.3 (1.0-1.7) Objective: Assessment: 1. Perforated viscus, status post exploratory laparotomy, reduction of gastric volvulus, hiatal hernia repair, gastrostomy tube placement and duodenoscopy with tube placement done. 2. Hypotension, requiring vasopressor support. 3. Respiratory failure, requiring ventilatory support. 4. Renal failure. 5. History of prostate cancer. path + with melanoma 6. Pneumonia 7. CT abdomen and pelvis with intraabdominal fluid collection could be absceess Plan: Plan of Care Merrem , daptomycin and Zyvox Monitor labs and cultures F/U BC 07/18 CT C/A/P reviewed Gen surgery following Patient is not a candidate for IR drainage at this time cont supportive care Critically ill Prognosis very poor consider palliative care Discussed with MARISOL LAYNE MD July 21, 2021 14:04
[2021-07-21] MEDS: fentaNYL PF VIAL 100 MCG/2 ML VIAL IVP PRN (17:12)
[2021-07-21] MEDS: DAPTOmycin (GENERIC) IVPB 450 MG in IV NORMAL SALINE 50ML 50 ML IV SCH (19:37)
[2021-07-21] MEDS: ENOXAPARIN 40 MG/0.4 ML SYRINGE. SQ SCH (20:34)
[2021-07-21] MEDS: FAMOTIDINE 20 MG/2 ML VIAL IVP SCH (20:34)
[2021-07-21] MEDS ORDERED: [UNRECOGNIZED DRUG - OTHER] IV SCH (22:00)
[2021-07-21] MEDS ORDERED: DEXTROSE 70% IV SCH ×2 (22:00)
[2021-07-21] MEDS ORDERED: [UNRECOGNIZED DRUG - OTHER] IV SCH (22:00)
[2021-07-21] MEDS ORDERED: AMINO ACID IV SCH ×2 (22:00)
[2021-07-21] MEDS ORDERED: TOTAL PARENTERAL NUTRITION IV SCH ×2 (22:00)
--- NOTE | 2021-07-21 23:46 | PN ---
DATE: 07/21/2021 SUBJECTIVE: The patient has continued to be mechanically ventilated. He did pressure support for about 8 hours yesterday. He is off sedation, continued to be on IV antibiotic and TPN. He does open his eyes, tracks and follows command. PHYSICAL EXAMINATION: GENERAL: When I examined him this morning, he looked pale, no jaundice, cyanosis, no lymphadenopathy, no thyromegaly, no jugular venous distention. Mild generalized anasarca. VITAL SIGNS: His heart rate was 80, blood pressure is 119/57, temperature was 100.3, respiratory rate was 32 and oxygen saturation was 98% on FiO2 of 40%. HEAD, EYES, EARS, NOSE, AND THROAT: Normocephalic, atraumatic. NECK: Supple. HEART: Normal first and second heart sounds. No gallop, rub or murmur. CHEST: Clear to auscultation, no crepitation or rhonchi. ABDOMEN: Distended, soft, nontender and has a gastrostomy tube in place as well as jejunostomy. NEUROLOGIC: He is definitely more awake, alert, opens his eyes, tracks and follows command. His intake is 1800, output was 1200. LABORATORY DATA: As of this morning showed a white cell count of 16.8, hemoglobin 10, hematocrit 31, MCV 88 and platelet count 327,000. His chemistry showed a serum sodium 145, potassium 3.6, chloride 115, bicarbonate 21, anion gap of 9, BUN 53, creatinine 1.2. Estimated GFR was 57 mL per minute. His glucose 115, calcium was 7.5, phosphorus 3.2, magnesium 2.3. Total bilirubin, AST, ALT, alkaline phosphatase are elevated, but trending down. His total protein 4.9, albumin was 1. ASSESSMENT: 1. Perforated viscus, status post exploratory laparotomy, reduction of gastric volvulus and hiatal hernia repair and gastrostomy tube placement as well as jejunostomy tube placement. 2. Acute hypoxic respiratory failure for which he continues to be on mechanical ventilation. He is off sedation for more than 4 days. He is maintaining his oxygen saturation at 97% on FiO2 of 40%. 3. Hypotension, resolved. In fact off Levophed and he is now normotensive. 4. Acute kidney injury is improving. His creatinine is down to 1.2. He did spike his temperature. His white cell count is risen up to 19.8 for which we did culture him and he is now on meropenem, daptomycin and linezolid. 5. Liver enzymes are elevated, but trending down. 6. He has severe protein-calorie malnutrition. Serum albumin is only 1 g/dL. 7. He has metastatic melanoma, for which we did consult the oncologist. 8. Has multiple preexisting conditions include: A. Hypertension. B. Hiatal hernia. C. Gastroesophageal reflux disease. D. Gastric ulcer. E. Chronic constipation. PLAN: To continue with mechanical ventilation and wean as tolerated. Continue with TPN. Continue with IV antibiotic. His CT scan of the chest, abdomen and pelvis showed that he has loculated fluid collection containing gas in the anterior upper abdomen anterior to the left hepatic lobe measuring up to 8.5 x 2.2 cm. Finding may relate to postsurgical changes, superimposed infection cannot be excluded. MAGGIE DR: Marta TID: [id number]
[2021-07-22] VITALS (24 sets, daily range): BP systolic 105–176; BP diastolic 47–86
[2021-07-22] MEDS: MEROPENEM 500 MG in IV NORMAL SALINE 50ML 50 ML IV SCH ×3 (05:51→21:46)
[2021-07-22 06:15] LABS: CALCIUM 7.5 mg/dL (8.5-10.1); CREATININE 1.1 mg/dL (0.7-1.3); GFR 63.6; MAGNESIUM 2.4 mg/dL (1.8-2.4); PHOSPHORUS 3.9 mg/dL (2.6-4.7); POTASSIUM 3.7 mmol/L (3.5-5.1)
--- NOTE | 2021-07-22 08:24 | PDOC ---
PROGRESS NOTES Date of Service DATE: 07/22/21 TIME: 08:22 Assessment Metabolic encephalopathy, may have had some anoxia? Better Perforated viscus, status-post exploratory laparotomy, gastrotomy tube pl acement, hernia repair surgery, respiratory failure, hypotension requiring vasopressors, sepsis, acute kidney injury, abnormal liver function tests, history of prostrate cancer anoxic encephalopathy. History of hypertension, hiatal hernia, gastroesophageal reflux disease, gastric ulcer, constipation Prostate cancer and melanoma, metastatic Plan Holding off on additional studies given his continued improvement Looks like he is not weanable from the ventilator Subjective None Objective Vital Signs Date Time Temp Pulse Resp B/P (MAP) Pulse Ox O2 Delivery O2 Flow Rate FiO2 07/22/21 08:00 Mechanical Ventilator 07/22/21 08:00 70 35 109/47 100 07/22/21 07:00 99.2 99.2 Intake and Output 07/22/21 07:00 Intake Total 1190 ml Output Total 1560 ml Balance -370 ml IV Total 1190 ml Output Urine Total 1210 ml Drainage Total 350 ml PHYSICAL EXAM Alert, follows commands, still on ventilator PERRL. EOMI. CN: no focal findings. Muscle tone: normal. Muscle strength: 1/5 DTR: 0+ Plantar reflex: Silent Gait: not examined in bed. Sensory exam: no abnormal findings. No cerebellar signs elicited. Review of Relevant I have reviewed the following items joanne (where applicable) has been applied. Labs Laboratory Tests Test 07/21/21 05:00 07/22/21 05:40 White Blood Count 16.8 x10^3/uL (4.0-11.0) Red Blood Count 3.52 x10^6/uL (4.30-5.70) Hemoglobin 10.1 g/dL (13.0-17.5) Hematocrit 31.0 % (39.0-53.0) Mean Corpuscular Volume 88 fL (79-100) Mean Corpuscular Hemoglobin 29 pg (25-35) Mean Corpuscular Hemoglobin Concent 33 g/dL (31-37) Red Cell Distribution Width 15.8 % (11.5-14.5) Platelet Count 327 x10^3/uL (140-400) Neutrophils (%) (Auto) 90 % (31-73) Lymphocytes (%) (Auto) 4 % (24-48) Monocytes (%) (Auto) 6 % (0-9) Eosinophils (%) (Auto) 0 % (0-3) Basophils (%) (Auto) 0 % (0-3) Neutrophils # (Auto) 15.0 x10^3/uL (1.8-7.7) Lymphocytes # (Auto) 0.7 x10^3/uL (1.0-4.8) Monocytes # (Auto) 1.0 x10^3/uL (0.0-1.1) Eosinophils # (Auto) 0.0 x10^3/uL (0.0-0.7) Basophils # (Auto) 0.0 x10^3/uL (0.0-0.2) Sodium Level 145 mmol/L (136-145) 143 mmol/L (136-145) Potassium Level 3.6 mmol/L (3.5-5.1) 3.7 mmol/L (3.5-5.1) Chloride Level 115 mmol/L (98-107) 113 mmol/L (98-107) Carbon Dioxide Level 21 mmol/L (21-32) 22 mmol/L (21-32) Anion Gap 9 (6-14) 8 (6-14) Blood Urea Nitrogen 53 mg/dL (8-26) 47 mg/dL (8-26) Creatinine 1.2 mg/dL (0.7-1.3) 1.1 mg/dL (0.7-1.3) Estimated GFR (Cockcroft-Gault) 57.5 63.6 BUN/Creatinine Ratio 44 (6-20) Glucose Level 115 mg/dL (70-99) 117 mg/dL (70-99) Calcium Level 7.5 mg/dL (8.5-10.1) 7.5 mg/dL (8.5-10.1) Phosphorus Level 3.2 mg/dL (2.6-4.7) 3.9 mg/dL (2.6-4.7) Magnesium Level 2.3 mg/dL (1.8-2.4) 2.4 mg/dL (1.8-2.4) Total Bilirubin 1.2 mg/dL (0.2-1.0) Aspartate Amino Transf (AST/SGOT) 95 U/L (15-37) Alanine Aminotransferase (ALT/SGPT) 96 U/L (16-63) Alkaline Phosphatase 196 U/L (46-116) Total Protein 4.9 g/dL (6.4-8.2) Albumin 1.0 g/dL (3.4-5.0) Albumin/Globulin Ratio 0.3 (1.0-1.7) Laboratory Tests Test 07/22/21 05:40 Sodium Level 143 mmol/L (136-145) Potassium Level 3.7 mmol/L (3.5-5.1) Chloride Level 113 mmol/L (98-107) Carbon Dioxide Level 22 mmol/L (21-32) Anion Gap 8 (6-14) Blood Urea Nitrogen 47 mg/dL (8-26) Creatinine 1.1 mg/dL (0.7-1.3) Estimated GFR (Cockcroft-Gault) 63.6 Glucose Level 117 mg/dL (70-99) Calcium Level 7.5 mg/dL (8.5-10.1) Phosphorus Level 3.9 mg/dL (2.6-4.7) Magnesium Level 2.4 mg/dL (1.8-2.4) Microbiology 07/19/21 Respiratory Culture Gram Stain - Final, Complete 07/19/21 Respiratory Culture - Final, Complete Elda Albicans Elda Glabrata 07/18/21 Blood Culture - Preliminary, Resulted NO GROWTH AFTER 3 DAYS Medications Current Medications Ceftriaxone Sodium (Rocephin) 2 gm Q24H IVP Last administered on 07/13/21at 06:30; Start 07/12/21 at 07:00; Stop 07/13/21 at 09:46; Status DC Metronidazole 100 ml @ 100 mls/hr Q8HRS IV Last administered on 07/13/21at 06:15; Start 07/12/21 at 14:00; Stop 07/13/21 at 09:46; Status DC Morphine Sulfate (Morphine Sulfate) 4 mg PRN Q4HRS PRN IVP SEVERE PAIN 7-10 Last administered on 07/12/21at 06:59; Start 07/12/21 at 06:15; Stop 07/12/21 at 13:52; Status DC Ondansetron HCl (Zofran) 4 mg PRN Q4HRS PRN IVP NAUSEA/VOMITING 1ST CHOICE Last administered on 07/12/21at 07:02; Start 07/12/21 at 06:15; Stop 07/12/21 at 13:03; Status DC Sodium Chloride 1,000 ml @ 150 mls/hr Q6H40M IV Last administered on 07/16/21at 04:36; Start 07/12/21 at 06:15; Stop 07/16/21 at 10:01; Status DC Piperacillin Sod/ Tazobactam Sod 2.25 gm/Sodium Chloride 50 ml @ 100 mls/hr Q8HRS IV Last administered on 07/13/21at 05:37; Start 07/12/21 at 14:00; Stop 07/13/21 at 11:36; Status DC Propofol (Diprivan) 200 mg STK-MED ONCE IV ; Start 07/12/21 at 07:43; Stop 07/12/21 at 07:44; Status DC Ondansetron HCl (Zofran) 4 mg STK-MED ONCE .ROUTE ; Start 07/12/21 at 07:43; Stop 07/12/21 at 07:44; Status DC Dexamethasone Sodium Phosphate (Decadron) 4 mg STK-MED ONCE .ROUTE ; Start 07/12/21 at 07:43; Stop 07/12/21 at 07:44; Status DC Succinylcholine Chloride (Anectine) 200 mg STK-MED ONCE .ROUTE ; Start 07/12/21 at 07:44; Stop 07/12/21 at 07:44; Status DC Neostigmine [place] (Neostigmine Methylsulfate) 5 mg STK-MED ONCE .ROUTE ; Start 07/12/21 at 07:44; Stop 07/12/21 at 07:44; Status DC Rocuronium [place] (Zemuron) 50 mg STK-MED ONCE .ROUTE ; Start 07/12/21 at 07:44; Stop 07/12/21 at 07:44; Status DC Fentanyl Citrate (Fentanyl 2ml Vial) 100 mcg STK-MED ONCE .ROUTE ; Start 07/12/21 at 07:44; Stop 07/12/21 at 07:44; Status DC Midazolam HCl (Versed) 2 mg STK-MED ONCE .ROUTE ; Start 07/12/21 at 07:44; Stop 07/12/21 at 07:44; Status DC Glycopyrrolate (Robinul) 1 mg STK-MED ONCE .ROUTE ; Start 07/12/21 at 07:45; Stop 07/12/21 at 07:45; Status DC Fentanyl Citrate (Fentanyl 2ml Vial) 25 mcg PRN Q5MIN PRN IVP MILD PAIN 1-3; Start 07/12/21 at 08:00; Stop 07/13/21 at 07:59; Status DC Fentanyl Citrate (Fentanyl 2ml Vial) 50 mcg PRN Q5MIN PRN IVP MODERATE PAIN 4- 6; Start 07/12/21 at 08:00; Stop 07/13/21 at 07:59; Status DC Morphine Sulfate (Morphine Sulfate) 1 mg PRN Q10MIN PRN IVP SEVERE PAIN 7-10; Start 07/12/21 at 08:00; Stop 07/13/21 at 07:59; Status DC Ringer's Solution 1,000 ml @ 30 mls/hr Q24H IV ; Start 07/12/21 at 08:00; Stop 07/12/21 at 19:59; Status DC Hydromorphone HCl (Dilaudid) 0.5 mg PRN Q10MIN PRN IVP SEVERE PAIN 7-10, 2nd CHOICE; Start 07/12/21 at 08:00; Stop 07/13/21 at 07:59; Status DC Prochlorperazine Edisylate (Compazine) 5 mg PACU PRN PRN IVP NAUSEA, MRX1; Start 07/12/21 at 08:00; Stop 07/13/21 at 07:59; Status DC Albumin Human 500 ml @ 125 mls/hr 1X ONCE IV Last administered on 07/12/21at 08:17; Start 07/12/21 at 08:15; Stop 07/12/21 at 12:14; Status DC Etomidate (Amidate) 20 mg STK-MED ONCE IV ; Start 07/12/21 at 08:30; Stop 07/12/21 at 08:30; Status DC Rocuronium [place] (Zemuron) 100 mg STK-MED ONCE .ROUTE ; Start 07/12/21 at 09:34; Stop 07/12/21 at 09:34; Status DC Phenylephrine HCl (PHENYLEPHRINE in 0.9% NACL PF) 1 mg STK-MED ONCE IV ; Start 07/12/21 at 10:27; Stop 07/12/21 at 10:27; Status DC Phenylephrine HCl (Lionel-Synephrine Inj) 10 mg STK-MED ONCE .ROUTE ; Start 07/12/21 at 10:27; Stop 07/12/21 at 10:27; Status DC Ephedrine Sulfate (ePHEDrine PF IN SALINE SYRINGE) 50 mg STK-MED ONCE IV ; Start 07/12/21 at 10:27; Stop 07/12/21 at 10:27; Status DC Albumin Human 500 ml @ As Directed STK-MED ONCE IV ; Start 07/12/21 at 11:15; Stop 07/12/21 at 11:16; Status DC Albumin Human 500 ml @ 500 mls/hr 1X ONCE IV Last administered on 07/12/21at 13:40; Start 07/12/21 at 11:30; Stop 07/12/21 at 12:29; Status DC Phenylephrine HCl (Lionel-Synephrine Inj) 10 mg STK-MED ONCE .ROUTE ; Start 07/12/21 at 11:54; Stop 07/12/21 at 11:55; Status DC Cefoxitin Sodium (Mefoxin) 1 gm Q6H IVP Last administered on 07/13/21at 01:47; Start 07/12/21 at 14:00; Stop 07/13/21 at 02:01; Status DC Famotidine (Pepcid Vial) 20 mg QHS IVP Last administered on 07/21/21at 20:34; Start 07/12/21 at 21:00 Enoxaparin Sodium (Lovenox 30mg Syringe) 30 mg Q24H SQ Last administered on 07/15/21at 21:04; Start 07/12/21 at 21:00; Stop 07/16/21 at 09:07; Status DC Sodium Chloride (Normal Saline Flush) 3 ml QSHIFT PRN IV AFTER MEDS AND BLOOD DRAWS; Start 07/12/21 at 12:15 Ringer's Solution 1,000 ml @ 100 mls/hr Q10H IV Last administered on 07/13/21at 10:39; Start 07/12/21 at 12:15; Stop 07/13/21 at 19:33; Status DC Naloxone HCl (Narcan) 0.4 mg PRN Q2MIN PRN IV SEE INSTRUCTIONS; Start 07/12/21 at 12:15 Sodium Chloride 1,000 ml @ 25 mls/hr Q24H IV ; Start 07/12/21 at 12:15; Stop 07/13/21 at 19:33; Status DC Morphine Sulfate (Morphine Sulfate) 1 mg PRN Q1HR PRN IV MODERATE PAIN; Start 07/12/21 at 12:15; Stop 07/12/21 at 13:51; Status DC Ondansetron HCl (Zofran) 4 mg PRN Q6HRS PRN IVP NAUESA, 1ST CHOICE; Start 07/12/21 at 12:15 Midazolam HCl 100 ml @ 1 mls/hr CONT PRN IV SEE PROTOCOL Last administered on 07/12/21at 16:55; Start 07/12/21 at 12:45; Stop 07/16/21 at 19:27; Status DC Propofol 100 ml @ 1.74 mls/hr CONT PRN IV PER PROTOCOL; Start 07/12/21 at 12:45; Stop 07/16/21 at 19:27; Status DC Glycerin/ Hypromellose/ Polyethylene (Artificial Tears) 1 drop PRN Q1HR PRN OU DRY EYE; Start 07/12/21 at 12:45 Albumin Human 500 ml @ 125 mls/hr 1X ONCE IV ; Start 07/12/21 at 12:45; Stop 07/12/21 at 16:44; Status DC Fentanyl Citrate 30 ml @ 0 mls/hr CONT PRN IV SEE PROTOCOL Last administered on 07/12/21at 23:40; Start 07/12/21 at 13:15; Stop 07/13/21 at 10:16; Status DC Sodium Bicarbonate (Sodium Bicarb Adult 8.4% Syr) 50 meq STK-MED ONCE .ROUTE ; Start 07/12/21 at 13:28; Stop 07/12/21 at 13:28; Status DC Sodium Bicarbonate (Sodium Bicarb Adult 8.4% Syr) 50 meq 1X ONCE IV Last administered on 07/12/21at 13:40; Start 07/12/21 at 13:45; Stop 07/12/21 at 13:46; Status DC Sodium Bicarbonate 150 meq/Dextrose 1,150 ml @ 75 mls/hr [id number] IV Last ad ministered on 07/13/21at 05:37; Start 07/12/21 at 14:30; Stop 07/13/21 at 19:34; Status DC Norepinephrine Bitartrate 8 mg/ Dextrose 258 ml @ 11.204 mls/ hr CONT PRN IV PER PROTOCOL Last administered on 07/14/21at 23:22; Start 07/12/21 at 13:45; Stop 07/15/21 at 03:14; Status DC Fentanyl Citrate (Fentanyl 2ml Vial) 50 mcg 1X ONCE IVP ; Start 07/12/21 at 14:15; Stop 07/12/21 at 14:16; Status DC Sodium Bicarbonate (Sodium Bicarb Adult 8.4% Syr) 50 meq STK-MED ONCE .ROUTE ; Start 07/12/21 at 21:15; Stop 07/12/21 at 21:15; Status DC Sevoflurane (Ultane) 60 ml STK-MED ONCE IH ; Start 07/12/21 at 21:15; Stop 07/12/21 at 21:15; Status DC Digoxin (Lanoxin) 500 mcg 1X ONCE IV Last administered on 07/13/21at 03:22; Start 07/13/21 at 03:30; Stop 07/13/21 at 03:31; Status DC Fentanyl Citrate 55 ml @ 1 mls/hr CONT PRN IV SEE PROTOCOL Last administered on 07/15/21at 06:00; Start 07/13/21 at 10:30; Stop 07/16/21 at 19:27; Status DC Piperacillin Sod/ Tazobactam Sod 2.25 gm/Sodium Chloride 50 ml @ 100 mls/hr Q6HRS IV Last administered on 07/18/21at 17:10; Start 07/13/21 at 12:00; Stop 07/18/21 at 18:02; Status DC Propofol (Diprivan) 1,000 mg STK-MED ONCE IV ; Start 07/12/21 at 13:00; Stop 07/13/21 at 12:22; Status DC Digoxin (Lanoxin) 500 mcg 1X ONCE IV Last administered on 07/14/21at 04:40; Start 07/14/21 at 04:30; Stop 07/14/21 at 04:31; Status DC Magnesium Sulfate 50 ml @ 25 mls/hr 1X ONCE IV Last administered on 07/14/21at 15:22; Start 07/14/21 at 12:30; Stop 07/14/21 at 14:29; Status DC Sodium Chloride 1,000 ml @ 1,000 mls/hr 1X ONCE IV Last administered on 07/14/21at 12:15; Start 07/14/21 at 12:30; Stop 07/14/21 at 13:29; Status DC Sodium Chloride 1,000 ml @ 1,000 mls/hr 1X ONCE IV Last administered on 07/14/21at 15:42; Start 07/14/21 at 15:30; Stop 07/14/21 at 16:29; Status DC Sodium Chloride 500 ml @ 500 mls/hr 1X ONCE IV Last administered on 07/14/21at 12:15; Start 07/14/21 at 15:30; Stop 07/14/21 at 16:29; Status DC Norepinephrine Bitartrate 32 mg/ Dextrose 250 ml @ 3.192 mls/ hr CONT PRN IV SEE I/O RECORD Last administered on 07/15/21at 04:15; Start 07/15/21 at 03:30 Furosemide (Lasix) 20 mg 1X ONCE IVP Last administered on 07/15/21at 18:29; Start 07/15/21 at 10:00; Stop 07/15/21 at 10:01; Status DC Info (Tpn Per Pharmacy) 1 each PRN DAILY PRN MC SEE COMMENTS Last administered on 07/21/21at 08:53; Start 07/15/21 at 10:30 Sodium Chloride 90 meq/Potassium Chloride 50 meq/ Potassium Phosphate 13.6 mmol/Magnesium Sulfate 10 meq/ Multivitamins 10 ml/Zinc/Copper/ Manganese/ Selenium 1 ml/ Total Parenteral Nutrition/Amino Acids/Dextrose/ Fat Emulsion Intravenous 1,512 ml @ 63 mls/hr TPN CONT IV Last administered on 07/15/21at 22:05; Start 07/15/21 at 22:00; Stop 07/16/21 at 21:59; Status DC Furosemide (Lasix) 20 mg 1X ONCE IVP ; Start 07/15/21 at 18:30; Stop 07/15/21 at 18:31; Status DC Enoxaparin Sodium (Lovenox 40mg Syringe) 40 mg Q24H SQ Last administered on 07/21/21at 20:34; Start 07/16/21 at 21:00 Sodium Chloride 70 meq/Potassium Chloride 50 meq/ Potassium Phosphate 20 mmol/ Magnesium Sulfate 10 meq/ Multivitamins 10 ml/Zinc/Copper/ Manganese/ Selenium 1 ml/ Total Parenteral Nutrition/Amino Acids/Dextrose/ Fat Emulsion Intravenous 1,512 ml @ 63 mls/hr TPN CONT IV ; Start 07/16/21 at 22:00; Stop 07/16/21 at 13:33; Status DC Sodium Chloride 70 meq/Potassium Chloride 50 meq/ Potassium Phosphate 20 mmol/ Magnesium Sulfate 10 meq/ Multivitamins 10 ml/Zinc/Copper/ Manganese/ Selenium 1 ml/ Total Parenteral Nutrition/Amino Acids/Dextrose/ Fat Emulsion Intravenous 1,482 ml @ 61.75 mls/ hr TPN CONT IV ; Start 07/16/21 at 22:00; Stop 07/16/21 at 14:03; Status DC Sodium Chloride 70 meq/Potassium Chloride 50 meq/ Potassium Phosphate 20 mmol/ Magnesium Sulfate 10 meq/ Multivitamins 10 ml/Zinc/Copper/ Manganese/ Selenium 1 ml/ Total Parenteral Nutrition/Amino Acids/Dextrose/ Fat Emulsion Intravenous 1,512 ml @ 63 mls/hr TPN CONT IV Last administered on 07/16/21at 21:38; Start 07/16/21 at 22:00; Stop 07/17/21 at 21:59; Status DC Fentanyl Citrate (Fentanyl 2ml Vial) 25 mcg PRN Q1HR PRN IVP PAIN Last admin istered on 07/21/21at 17:12; Start 07/16/21 at 19:30 Labetalol HCl (Normodyne Iv Push) 10 mg PRN Q4HRS PRN IVP HYPERTENSION; Start 07/17/21 at 09:15 Potassium Phosphate 15 mmol/ Sodium Chloride 105 ml @ 52.5 mls/hr 1X ONCE IV Last administered on 07/17/21at 12:32; Start 07/17/21 at 12:00; Stop 07/17/21 at 13:59; Status DC Sodium Chloride 70 meq/Potassium Chloride 50 meq/ Potassium Phosphate 25 mmol/ Magnesium Sulfate 10 meq/ Multivitamins 10 ml/Zinc/Copper/ Manganese/ Selenium 1 ml/ Total Parenteral Nutrition/Amino Acids/Dextrose/ Fat Emulsion Intravenous 1,512 ml @ 63 mls/hr TPN CONT IV Last administered on 07/17/21at 20:22; Start 07/17/21 at 22:00; Stop 07/18/21 at 21:59; Status DC Furosemide (Lasix) 40 mg 1X ONCE IVP Last administered on 07/17/21at 12:28; Start 07/17/21 at 11:45; Stop 07/17/21 at 11:46; Status DC Sodium Acetate 70 meq/Potassium Chloride 50 meq/ Potassium Phosphate 22 mmol/ Magnesium Sulfate 8 meq/ Multivitamins 10 ml/Zinc/Copper/ Manganese/ Selenium 1 ml/ Total Parenteral Nutrition/Amino Acids/Dextrose/ Fat Emulsion Intravenous 1,512 ml @ 63 mls/hr TPN CONT IV Last administered on 07/18/21at 21:44; Start 07/18/21 at 22:00; Stop 07/19/21 at 21:59; Status DC Meropenem 500 mg/ Sodium Chloride 50 ml @ 100 mls/hr Q8HRS IV Last adminis tered on 07/22/21at 05:51; Start 07/18/21 at 22:00 Daptomycin 450 mg/ Sodium Chloride 50 ml @ 100 mls/hr Q24H IV Last administer ed on 07/21/21at 19:37; Start 07/18/21 at 20:00 Sodium Chloride 40 meq/Potassium Acetate 50 meq/ Potassium Phosphate 22 mmol/ Magnesium Sulfate 8 meq/ Multivitamins 10 ml/Zinc/Copper/ Manganese/ Selenium 1 ml/ Total Parenteral Nutrition/Amino Acids/Dextrose/ Fat Emulsion Intravenous 1,680 ml @ 70 mls/hr TPN CONT IV Last administered on 07/19/21at 21:40; Start 07/19/21 at 22:00; Stop 07/20/21 at 21:59; Status DC Linezolid/Dextrose 300 ml @ 300 mls/hr Q12HR IV Last administered on 07/21/21at 20:34; Start 07/19/21 at 14:00 Sodium Chloride 40 meq/Potassium Acetate 50 meq/ Potassium Phosphate 22 mmol/ Magnesium Sulfate 6 meq/ Multivitamins 10 ml/Zinc/Copper/ Manganese/ Selenium 1 ml/ Total Parenteral Nutrition/Amino Acids/Dextrose/ Fat Emulsion Intravenous 1,680 ml @ 70 mls/hr TPN CONT IV Last administered on 07/20/21at 22:14; Start 07/20/21 at 22:00; Stop 07/21/21 at 21:59; Status DC Sodium Chloride 40 meq/Potassium Acetate 50 meq/ Potassium Phosphate 26 mmol/ Magnesium Sulfate 6 meq/ Multivitamins 10 ml/Zinc/Copper/ Manganese/ Selenium 1 ml/ Total Parenteral Nutrition/Amino Acids/Dextrose/ Fat Emulsion Intravenous 1,680 ml @ 70 mls/hr TPN CONT IV ; Start 07/21/21 at 22:00; Stop 07/21/21 at 08:54; Status DC Sodium Chloride 40 meq/Potassium Acetate 60 meq/ Potassium Phosphate 30 mmol/ Magnesium Sulfate 6 meq/ Multivitamins 10 ml/Zinc/Copper/ Manganese/ Selenium 1 ml/ Total Parenteral Nutrition/Amino Acids/Dextrose/ Fat Emulsion Intravenous 1,680 ml @ 70 mls/hr TPN CONT IV Last administered on 07/21/21at 22:18; Start 07/21/21 at 22:00; Stop 07/22/21 at 21:59 Active Scripts Active [Pantoprazole] 40 MG Tablet.dr 40 Mg PO BIDBFRMEAL Carafate (Sucralfate) 1 Gm/10 Ml Oral.susp 1 Gm PO TIDBFRMEAL Reported Avalide 150-12.5 Mg Tablet (Irbesartan/Hydrochlorothiazide) 1 Each Tablet 1 Each PO DAILY Vitals/I & O Vital Sign - Last 24 Hours 07/21/21 07/21/21 07/21/21 07/21/21 09:00 10:00 11:00 11:30 Pulse 84 82 82 Resp 32 30 30 B/P (MAP) 127/57 127/61 143/67 Pulse Ox 99 98 100 96 O2 Delivery Ventilator Ventilator Ventilator Ventilator 07/21/21 07/21/21 07/21/21 07/21/21 12:00 12:00 12:58 13:00 Temp 100.0 100.0 Pulse 80 78 Resp 30 30 B/P (MAP) 134/63 123/61 Pulse Ox 99 96 99 O2 Delivery Mechanical Ventilator Ventilator Ventilator Ventilator 07/21/21 07/21/21 07/21/21 07/21/21 14:00 15:00 15:15 16:00 Pulse 79 77 Resp 29 29 B/P (MAP) 127/55 121/52 Pulse Ox 100 99 96 O2 Delivery Ventilator Ventilator Ventilator Mechanical Ventilator 07/21/21 07/21/21 07/21/21 07/21/21 16:00 17:00 17:32 17:52 Temp 98.7 98.7 Pulse 73 84 Resp 30 34 B/P (MAP) 130/55 163/74 Pulse Ox 99 97 96 98 O2 Delivery Ventilator Ventilator Ventilator Ventilator 07/21/21 07/21/21 07/21/21 07/21/21 18:00 19:00 20:00 20:00 Temp 100.4 100.4 Pulse 91 86 90 Resp 32 33 33 B/P (MAP) 140/68 133/72 149/70 Pulse Ox 98 98 98 O2 Delivery Ventilator Ventilator Mechanical Ventilator Ventilator 07/21/21 07/21/21 07/21/21 07/21/21 20:17 21:00 22:00 23:00 Pulse 102 89 82 Resp 33 33 32 B/P (MAP) 116/78 125/52 93/65 Pulse Ox 98 97 97 99 O2 Delivery Ventilator Ventilator Ventilator Ventilator 07/21/21 07/21/21 07/22/21 07/22/21 23:09 23:59 00:01 01:00 Temp 98.5 98.5 Pulse 83 78 Resp 30 32 B/P (MAP) 105/53 127/56 Pulse Ox 98 100 100 O2 Delivery Ventilator Mechanical Ventilator Ventilator Ventilator 07/22/21 07/22/21 07/22/21 07/22/21 01:11 02:00 03:00 03:52 Pulse 77 80 Resp 32 30 B/P (MAP) 126/59 134/54 Pulse Ox 98 98 98 99 O2 Delivery Ventilator Ventilator Ventilator Ventilator 07/22/21 07/22/21 07/22/21 07/22/21 04:00 04:00 05:00 05:00 Temp 100.0 100.0 Pulse 80 72 72 Resp 29 28 29 B/P (MAP) 136/63 113/54 134/59 Pulse Ox 98 99 99 O2 Delivery Mechanical Ventilator Ventilator Ventilator Ventilator 07/22/21 07/22/21 07/22/21 07/22/21 05:30 06:00 07:00 07:58 Temp 99.2 99.2 Pulse 72 77 Resp 28 31 B/P (MAP) 113/54 105/50 Pulse Ox 100 99 99 97 O2 Delivery Ventilator Ventilator Ventilator Ventilator 07/22/21 07/22/21 08:00 08:00 Pulse 70 Resp 35 B/P (MAP) 109/47 Pulse Ox 100 O2 Delivery Ventilator Mechanical Ventilator Intake and Output 07/21/21 07/21/21 07/22/21 15:00 23:00 07:00 Intake Total 350 ml 840 ml Output Total 335 ml 660 ml 565 ml Balance 15 ml 180 ml -565 ml Justicifation of Admission Dx: Justifications for Admission: Justification of Admission Dx: Yes Sepsis: Hemodynamic Instability ROME CANTOR MD July 22, 2021 08:24
[2021-07-22] MEDS: TPN PER PHARMACY MC PRN (08:35)
--- NOTE | 2021-07-22 08:36 | NUR ---
Pharmacy TPN Dosing Note S: AZEB COOMBS is a 85 year old M Currently receiving Central Continuous TPN started 07/15/21 B:Pertinent PMH: NPO SINCE 07/12, PERFORATED BOWEL Height: 5 feet, 4 inches Weight: 74.9 kg Current diet: NPO LABS: Sodium: 143 Potassium: 3.7 Chloride: 113 Calcium: 7.5 Corrected Calcium: 9.90 Magnesium: 2.4 CO2: 22 SCr: 1.1 Glucose: 117 Albumin: 1.0 AST: 95 ALT: 96 TPN FORMULA: TPN TYPE: Central Continuous AMINO ACIDS: 75 gm DEXTROSE: 210 gm LIPIDS: 30 gm SODIUM CHLORIDE: 40 mEq POTASSIUM ACETATE: 60 mEq POTASSIUM PHOSPHATE: 30 mmol MAGNESIUM: 6 mEq MULTIPLE VITAMIN: 10 ml TRACE ELEMENTS: 1 mL ml(s) TPN PLAN: Continue with the same TPN tonight. Will reassess tomorrow. BMP, Mag, Phos ordered for 5/ morning. R: Continue TPN Will monitor electrolytes, glucose, and tolerance to TPN. ELIZABETH ALMAGUER [facility], 07/22/21 [id number]
--- NOTE | 2021-07-22 09:01 | PDOC ---
DATE OF SERVICE DATE: 07/22/21 TIME: 09:00 SUBJECTIVE ROS Intubated, on vent. following some commands OBJECTIVE Vital Signs Vital Signs Date Time Temp Pulse Resp B/P (MAP) Pulse Ox O2 Delivery O2 Flow Rate FiO2 07/22/21 08:00 Mechanical Ventilator 07/22/21 08:00 70 35 109/47 100 07/22/21 07:00 99.2 99.2 I & 0 Intake and Output0 07/22/21 07:00 Intake Total 1190 ml Output Total 1560 ml Balance -370 ml IV Total 1190 ml Output Urine Total 1210 ml Drainage Total 350 ml PHYSICAL EXAM Physical Exam GENERAL: orally intubated HEENT: Both pupils are round and reacting. orally intubated. NECK: Supple, no JVP, LUNGS: Clear. Decreased breath sounds. HEART: S1, S2 regular. No gallop or murmur. ABDOMEN: Multiple tubes in the post-surgical dressing EXTREMITIES: No edema, cyanosis. SKIN: Unremarkable. NEUROLOGIC: sedated and intubated. Carreno + DIAGNOSIS/ASSESSMENT Assessment & Plan SHELDON-- ATN/ Hypotensive/Bowel perf . UA unremarkable , CT scan No e/o BALLARD/Hydronephrosis , Renal function stable E-Lytes stable . Supportive care,maintain fluid balance, avoid Nephrotoxins SHELDON in 2018, resolved. No Interval labs available HyperNatremia- mild- Needs free water, adjust Na in TPN Persistent encephalopathyCould be hepatic encephalopathy as well as sepsis contributing as well Cannot exclude the possibly of metastatic melanoma to the brain. Renal Calculus 5 mm nonobstructing calculus is seen involving the lower pole of the right kidney. Perforated viscus, status post exploratory laparotomy, reduction of gastric volvulus, hiatal hernia repair, gastrostomy tube placement and duodenoscopy with tube placement done. 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 CT chest/Abdomen Redemonstration of numerous metastatic disease in the lungs and throughout the abdomen. Acute Respiratory failure, requiring ventilatory support. History of prostate cancer. HypoPhos- Normal ; Adjust in TPN as indicated Nutrition- On TPN COMMENT/RELEVANT DATA Meds Current Medications Medications (Trade) Dose Ordered Sig/Armin Start Time Stop Time Status Last Admin Dose Admin Albumin Human 500 ml @ 125 mls/hr 1X ONCE 07/12/21 12:45 07/12/21 16:44 DC Cefoxitin Sodium (Mefoxin) 1 gm Q6H 07/12/21 14:00 07/13/21 02:01 DC 07/13/21 01:47 1 GM Ceftriaxone Sodium (Rocephin) 2 gm Q24H 07/12/21 07:00 07/13/21 09:46 DC 07/13/21 06:30 2 GM Daptomycin 450 mg/ Sodium Chloride 50 ml @ 100 mls/hr Q24H 07/18/21 20:00 07/21/21 19:37 100 MLS/HR Dexamethasone Sodium Phosphate (Decadron) 4 mg STK-MED ONCE 07/12/21 07:43 07/12/21 07:44 DC Digoxin (Lanoxin) 500 mcg 1X ONCE 07/14/21 04:30 07/14/21 04:31 DC 07/14/21 04:40 500 MCG Enoxaparin Sodium (Lovenox 30mg Syringe) 30 mg Q24H 07/12/21 21:00 07/16/21 09:07 DC 07/15/21 21:04 30 MG Enoxaparin Sodium (Lovenox 40mg Syringe) 40 mg Q24H 07/16/21 21:00 07/21/21 20:34 40 MG Ephedrine Sulfate (ePHEDrine PF IN SALINE SYRINGE) 50 mg STK-MED ONCE 07/12/21 10:27 07/12/21 10:27 DC Etomidate (Amidate) 20 mg STK-MED ONCE 07/12/21 08:30 07/12/21 08:30 DC Famotidine (Pepcid Vial) 20 mg QHS 07/12/21 21:00 07/21/21 20:34 20 MG Fentanyl Citrate (Fentanyl 2ml Vial) 25 mcg PRN Q1HR PRN 07/16/21 19:30 07/21/21 17:12 25 MCG Furosemide (Lasix) 40 mg 1X ONCE 07/17/21 11:45 07/17/21 11:46 DC 07/17/21 12:28 40 MG Glycerin/ Hypromellose/ Polyethylene (Artificial Tears) 1 drop PRN Q1HR PRN 07/12/21 12:45 Glycopyrrolate (Robinul) 1 mg STK-MED ONCE 07/12/21 07:45 07/12/21 07:45 DC Hydromorphone HCl (Dilaudid) 0.5 mg PRN Q10MIN PRN 07/12/21 08:00 07/13/21 07:59 DC Info (Tpn Per Pharmacy) 1 each PRN DAILY PRN 07/15/21 10:30 07/22/21 08:35 1 EACH Labetalol HCl (Normodyne Iv Push) 10 mg PRN Q4HRS PRN 07/17/21 09:15 Linezolid/Dextrose 300 ml @ 300 mls/hr Q12HR 07/19/21 14:00 07/22/21 08:45 300 MLS/HR Magnesium Sulfate 50 ml @ 25 mls/hr 1X ONCE 07/14/21 12:30 07/14/21 14:29 DC 07/14/21 15:22 25 MLS/HR Meropenem 500 mg/ Sodium Chloride 50 ml @ 100 mls/hr Q8HRS 07/18/21 22:00 07/22/21 05:51 100 MLS/HR Metronidazole 100 ml @ 100 mls/hr Q8HRS 07/12/21 14:00 07/13/21 09:46 DC 07/13/21 06:15 100 MLS/HR Midazolam HCl 100 ml @ 1 mls/hr CONT PRN 07/12/21 12:45 07/16/21 19:27 DC 07/12/21 16:55 1 MLS/HR Midazolam HCl (Versed) 2 mg STK-MED ONCE 07/12/21 07:44 07/12/21 07:44 DC Morphine Sulfate (Morphine Sulfate) 1 mg PRN Q1HR PRN 07/12/21 12:15 07/12/21 13:51 DC Naloxone HCl (Narcan) 0.4 mg PRN Q2MIN PRN 07/12/21 12:15 Neostigmine [place] (Neostigmine Methylsulfate) 5 mg STK-MED ONCE 07/12/21 07:44 07/12/21 07:44 DC Norepinephrine Bitartrate 32 mg/ Dextrose 250 ml @ 3.192 mls/ hr CONT PRN 07/15/21 03:30 07/15/21 04:15 15.961 MLS/HR Norepinephrine Bitartrate 8 mg/ Dextrose 258 ml @ 11.204 mls/ hr CONT PRN 07/12/21 13:45 07/15/21 03:14 DC 07/14/21 23:22 56.018 MLS/HR Ondansetron HCl (Zofran) 4 mg PRN Q6HRS PRN 07/12/21 12:15 Phenylephrine HCl (Lionel-Synephrine Inj) 10 mg STK-MED ONCE 07/12/21 11:54 07/12/21 11:55 DC Phenylephrine HCl (PHENYLEPHRINE in 0.9% NACL PF) 1 mg STK-MED ONCE 07/12/21 10:27 07/12/21 10:27 DC Piperacillin Sod/ Tazobactam Sod 2.25 gm/Sodium Chloride 50 ml @ 100 mls/hr Q6HRS 07/13/21 12:00 07/18/21 18:02 DC 07/18/21 17:10 100 MLS/HR Potassium Phosphate 15 mmol/ Sodium Chloride 105 ml @ 52.5 mls/hr 1X ONCE 07/17/21 12:00 07/17/21 13:59 DC 07/17/21 12:32 52.5 MLS/HR Prochlorperazine Edisylate (Compazine) 5 mg PACU PRN PRN 07/12/21 08:00 07/13/21 07:59 DC Propofol (Diprivan) 1,000 mg STK-MED ONCE 07/12/21 13:00 07/13/21 12:22 DC Ringer's Solution 1,000 ml @ 100 mls/hr Q10H 07/12/21 12:15 07/13/21 19:33 DC 07/13/21 10:39 100 MLS/HR Rocuronium [place] (Zemuron) 100 mg STK-MED ONCE 07/12/21 09:34 07/12/21 09:34 DC Sevoflurane (Ultane) 60 ml STK-MED ONCE 07/12/21 21:15 07/12/21 21:15 DC Sodium Bicarbonate 150 meq/Dextrose 1,150 ml @ 75 mls/hr [id number] 07/12/21 14:30 07/13/21 19:34 DC 07/13/21 05:37 75 MLS/HR Sodium Acetate 70 meq/Potassium Chloride 50 meq/ Potassium Phosphate 22 mmol/ Magnesium Sulfate 8 meq/ Multivitamins 10 ml/Zinc/Copper/ Manganese/ Selenium 1 ml/ Total Parenteral Nutrition/Amino Acids/Dextrose/ Fat Emulsion Intravenous 1,512 ml @ 63 mls/hr TPN CONT 07/18/21 22:00 07/19/21 21:59 DC 07/18/21 21:44 63 MLS/HR Sodium Bicarbonate (Sodium Bicarb Adult 8.4% Syr) 50 meq STK-MED ONCE 07/12/21 21:15 07/12/21 21:15 DC Sodium Chloride (Normal Saline Flush) 3 ml QSHIFT PRN 07/12/21 12:15 Sodium Chloride 40 meq/Potassium Acetate 50 meq/ Potassium Phosphate 22 mmol/ Magnesium Sulfate 6 meq/ Multivitamins 10 ml/Zinc/Copper/ Manganese/ Selenium 1 ml/ Total Parenteral Nutrition/Amino Acids/Dextrose/ Fat Emulsion Intravenous 1,680 ml @ 70 mls/hr TPN CONT 07/20/21 22:00 07/21/21 21:59 DC 07/20/21 22:14 70 MLS/HR Sodium Chloride 40 meq/Potassium Acetate 50 meq/ Potassium Phosphate 22 mmol/ Magnesium Sulfate 8 meq/ Multivitamins 10 ml/Zinc/Copper/ Manganese/ Selenium 1 ml/ Total Parenteral Nutrition/Amino Acids/Dextrose/ Fat Emulsion Intravenous 1,680 ml @ 70 mls/hr TPN CONT 07/19/21 22:00 07/20/21 21:59 DC 07/19/21 21:40 70 MLS/HR Sodium Chloride 40 meq/Potassium Acetate 50 meq/ Potassium Phosphate 26 mmol/ Magnesium Sulfate 6 meq/ Multivitamins 10 ml/Zinc/Copper/ Manganese/ Selenium 1 ml/ Total Parenteral Nutrition/Amino Acids/Dextrose/ Fat Emulsion Intravenous 1,680 ml @ 70 mls/hr TPN CONT 07/21/21 22:00 07/21/21 08:54 DC Sodium Chloride 40 meq/Potassium Acetate 60 meq/ Potassium Phosphate 30 mmol/ Magnesium Sulfate 6 meq/ Multivitamins 10 ml/Zinc/Copper/ Manganese/ Selenium 1 ml/ Total Parenteral Nutrition/Amino Acids/Dextrose/ Fat Emulsion Intravenous 1,680 ml @ 70 mls/hr TPN CONT 07/22/21 22:00 07/23/21 21:59 Sodium Chloride 70 meq/Potassium Chloride 50 meq/ Potassium Phosphate 20 mmol/ Magnesium Sulfate 10 meq/ Multivitamins 10 ml/Zinc/Copper/ Manganese/ Selenium 1 ml/ Total Parenteral Nutrition/Amino Acids/Dextrose/ Fat Emulsion Intravenous 1,512 ml @ 63 mls/hr TPN CONT 07/16/21 22:00 07/17/21 21:59 DC 07/16/21 21:38 63 MLS/HR Sodium Chloride 70 meq/Potassium Chloride 50 meq/ Potassium Phosphate 25 mmol/ Magnesium Sulfate 10 meq/ Multivitamins 10 ml/Zinc/Copper/ Manganese/ Selenium 1 ml/ Total Parenteral Nutrition/Amino Acids/Dextrose/ Fat Emulsion Intravenous 1,512 ml @ 63 mls/hr TPN CONT 07/17/21 22:00 07/18/21 21:59 DC 07/17/21 20:22 63 MLS/HR Sodium Chloride 90 meq/Potassium Chloride 50 meq/ Potassium Phosphate 13.6 mmol/Magnesium Sulfate 10 meq/ Multivitamins 10 ml/Zinc/Copper/ Manganese/ Selenium 1 ml/ Total Parenteral Nutrition/Amino Acids/Dextrose/ Fat Emulsion Intravenous 1,512 ml @ 63 mls/hr TPN CONT 07/15/21 22:00 07/16/21 21:59 DC 07/15/21 22:05 63 MLS/HR Succinylcholine Chloride (Anectine) 200 mg STK-MED ONCE 07/12/21 07:44 07/12/21 07:44 DC Lab Laboratory Tests Test 07/22/21 05:40 Sodium Level 143 mmol/L (136-145) Potassium Level 3.7 mmol/L (3.5-5.1) Chloride Level 113 mmol/L (98-107) Carbon Dioxide Level 22 mmol/L (21-32) Anion Gap 8 (6-14) Blood Urea Nitrogen 47 mg/dL (8-26) Creatinine 1.1 mg/dL (0.7-1.3) Estimated GFR (Cockcroft-Gault) 63.6 Glucose Level 117 mg/dL (70-99) Calcium Level 7.5 mg/dL (8.5-10.1) Phosphorus Level 3.9 mg/dL (2.6-4.7) Magnesium Level 2.4 mg/dL (1.8-2.4) Results All relevant outside records, renal labs, imaging studies, telemetry/EKG's were reviewed. Justicifation of Admission Dx: Justifications for Admission: Justification of Admission Dx: Yes Sepsis: Hemodynamic Instability JENNIE MOODY MD July 22, 2021 09:01
[2021-07-22 09:27] LABS: BASE EXCESS ABG -3 mmol/L (-3-3); HCO3 ABG 18 mmol/L (21-28); PCO2 ABG 21 mmHg (35-46); PO2 ABG 71 mmHg (65-108); SAT O2 ABG 96 % (92-99)
--- NOTE | 2021-07-22 10:06 | PDOC ---
PULMONARY PROGRESS NOTES DATE: 07/22/21 TIME: 10:04 Subjective Patient appears to be more awake today, wiggles toes on commands, not short of air currently on pressure support of 16 T-max 99 Vitals Vital Signs Date Time Temp Pulse Resp B/P (MAP) Pulse Ox O2 Delivery O2 Flow Rate FiO2 07/22/21 09:23 100 Ventilator 07/22/21 09:00 71 27 122/56 07/22/21 07:00 99.2 99.2 General: Alert Lungs: Clear Cardiovascular: S1, S2 Abdomen: Soft, Other (Distended) Extremities: Other (Significant scrotal edema.) Skin: Warm Labs Laboratory Tests Test 07/21/21 05:00 07/22/21 05:40 07/22/21 09:15 White Blood Count 16.8 x10^3/uL (4.0-11.0) Red Blood Count 3.52 x10^6/uL (4.30-5.70) Hemoglobin 10.1 g/dL (13.0-17.5) Hematocrit 31.0 % (39.0-53.0) Mean Corpuscular Volume 88 fL (79-100) Mean Corpuscular Hemoglobin 29 pg (25-35) Mean Corpuscular Hemoglobin Concent 33 g/dL (31-37) Red Cell Distribution Width 15.8 % (11.5-14.5) Platelet Count 327 x10^3/uL (140-400) Neutrophils (%) (Auto) 90 % (31-73) Lymphocytes (%) (Auto) 4 % (24-48) Monocytes (%) (Auto) 6 % (0-9) Eosinophils (%) (Auto) 0 % (0-3) Basophils (%) (Auto) 0 % (0-3) Neutrophils # (Auto) 15.0 x10^3/uL (1.8-7.7) Lymphocytes # (Auto) 0.7 x10^3/uL (1.0-4.8) Monocytes # (Auto) 1.0 x10^3/uL (0.0-1.1) Eosinophils # (Auto) 0.0 x10^3/uL (0.0-0.7) Basophils # (Auto) 0.0 x10^3/uL (0.0-0.2) Sodium Level 145 mmol/L (136-145) 143 mmol/L (136-145) Potassium Level 3.6 mmol/L (3.5-5.1) 3.7 mmol/L (3.5-5.1) Chloride Level 115 mmol/L (98-107) 113 mmol/L (98-107) Carbon Dioxide Level 21 mmol/L (21-32) 22 mmol/L (21-32) Anion Gap 9 (6-14) 8 (6-14) Blood Urea Nitrogen 53 mg/dL (8-26) 47 mg/dL (8-26) Creatinine 1.2 mg/dL (0.7-1.3) 1.1 mg/dL (0.7-1.3) Estimated GFR (Cockcroft-Gault) 57.5 63.6 BUN/Creatinine Ratio 44 (6-20) Glucose Level 115 mg/dL (70-99) 117 mg/dL (70-99) Calcium Level 7.5 mg/dL (8.5-10.1) 7.5 mg/dL (8.5-10.1) Phosphorus Level 3.2 mg/dL (2.6-4.7) 3.9 mg/dL (2.6-4.7) Magnesium Level 2.3 mg/dL (1.8-2.4) 2.4 mg/dL (1.8-2.4) Total Bilirubin 1.2 mg/dL (0.2-1.0) Aspartate Amino Transf (AST/SGOT) 95 U/L (15-37) Alanine Aminotransferase (ALT/SGPT) 96 U/L (16-63) Alkaline Phosphatase 196 U/L (46-116) Total Protein 4.9 g/dL (6.4-8.2) Albumin 1.0 g/dL (3.4-5.0) Albumin/Globulin Ratio 0.3 (1.0-1.7) O2 Saturation 96 % (92-99) Arterial Blood pH 7.55 (7.35-7.45) Arterial Blood pCO2 at Patient Temp 21 mmHg (35-46) Arterial Blood pO2 at Patient Temp 71 mmHg (65-108) Arterial Blood HCO3 18 mmol/L (21-28) Arterial Blood Base Excess -3 mmol/L (-3-3) FiO2 40 cpap Laboratory Tests Test 07/22/21 05:40 07/22/21 09:15 Sodium Level 143 mmol/L (136-145) Potassium Level 3.7 mmol/L (3.5-5.1) Chloride Level 113 mmol/L (98-107) Carbon Dioxide Level 22 mmol/L (21-32) Anion Gap 8 (6-14) Blood Urea Nitrogen 47 mg/dL (8-26) Creatinine 1.1 mg/dL (0.7-1.3) Estimated GFR (Cockcroft-Gault) 63.6 Glucose Level 117 mg/dL (70-99) Calcium Level 7.5 mg/dL (8.5-10.1) Phosphorus Level 3.9 mg/dL (2.6-4.7) Magnesium Level 2.4 mg/dL (1.8-2.4) O2 Saturation 96 % (92-99) Arterial Blood pH 7.55 (7.35-7.45) Arterial Blood pCO2 at Patient Temp 21 mmHg (35-46) Arterial Blood pO2 at Patient Temp 71 mmHg (65-108) Arterial Blood HCO3 18 mmol/L (21-28) Arterial Blood Base Excess -3 mmol/L (-3-3) FiO2 40 cpap Medications Active Scripts Medications Dose Route/Sig Max Daily Dose Days Date Category [Pantoprazole] 40 MG Tablet.dr 40 Mg PO BIDBFRMEAL 06/22/17 Rx Carafate (Sucralfate) 1 Gm/10 Ml Oral.susp 1 Gm PO TIDBFRMEAL 06/22/17 Rx Avalide 150-12.5 Mg Tablet (Irbesartan/Hydrochlorothiazide) 1 Each Tablet 1 Each PO DAILY 06/19/[address] chest dated 07/19/2021 reviewed. Bilateral lung nodules consistent with metastatic disease. Mild to moderate bilateral pleural effusions with associated compressive atelec tasis. Chest x-ray reviewed 07/17/2021. Mild progression of interstitial infiltrates and pleural effusion consistent with CHF. There is a skinfold on the left apex unlikely pneumothorax. Impression . Acute respiratory failure multifactorial status post exploratory laparotomy for perforated viscus Septic shock. Resolved. Off Levophed. Fever, per ID Acute renal failure. History of prostate cancer Severe protein malnutrition present upon admission. 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 Bilateral lung nodules suggestive of metastasis to the lungs. Bilateral moderate pleural effusions with associated atelectasis related to low oncotic pressure. CT chest reviewed dated 07/19/2021 Toxic metabolic encephalopathy, improving Abnormal liver function test. \ Plan . Updated 07/22 On pressure support of 16 patient's respiratory rate less than 30 I placed him on pressure support of 8 and his respiratory rate harinder to above 36 Will attempt T-tube trial Labs reviewed updated Appreciate surgery input Suspect patient will be extubated in the next 24 to 48 hours Updated son at the bedside ABG noticed PaO2 of 71 on 40% Critical care time of 30 minutes 07/21 Patient more awake alert Currently on pressure support of 16 tidal volume approximately 400 Dropped his pressure support to 5 his tidal volume was only about 250 Off of pressors Continue broad-spectrum antibiotics per ID Labs reviewed ABG noted PO2 of 112 from 5 1 Follow surgery input Discussed with son at the bedside CCT 30 minutes ANTELMO ANAND MD July 22, 2021 10:06
--- NOTE | 2021-07-22 11:06 | PDOC ---
SURGICAL PROGRESS NOTE DATE: 07/22/21 TIME: 11:04 Subjective Pt awake on vent Vital Signs Vital Signs Date Time Temp Pulse Resp B/P (MAP) Pulse Ox O2 Delivery O2 Flow Rate FiO2 07/22/21 10:00 79 32 119/57 99 Ventilator 07/22/21 07:00 99.2 99.2 I&O Intake and Output 07/22/21 07:00 Intake Total 1190 ml Output Total 1560 ml Balance -370 ml IV Total 1190 ml Output Urine Total 1210 ml Drainage Total 350 ml PATIENT HAS A PEDRO: Yes (accurate i and os) General: Alert, No acute distress Abdomen: Soft, No tenderness, Other (incision intact, Tubes intact) Labs Laboratory Tests Test 07/21/21 05:00 07/22/21 05:40 07/22/21 09:15 White Blood Count 16.8 x10^3/uL (4.0-11.0) Red Blood Count 3.52 x10^6/uL (4.30-5.70) Hemoglobin 10.1 g/dL (13.0-17.5) Hematocrit 31.0 % (39.0-53.0) Mean Corpuscular Volume 88 fL (79-100) Mean Corpuscular Hemoglobin 29 pg (25-35) Mean Corpuscular Hemoglobin Concent 33 g/dL (31-37) Red Cell Distribution Width 15.8 % (11.5-14.5) Platelet Count 327 x10^3/uL (140-400) Neutrophils (%) (Auto) 90 % (31-73) Lymphocytes (%) (Auto) 4 % (24-48) Monocytes (%) (Auto) 6 % (0-9) Eosinophils (%) (Auto) 0 % (0-3) Basophils (%) (Auto) 0 % (0-3) Neutrophils # (Auto) 15.0 x10^3/uL (1.8-7.7) Lymphocytes # (Auto) 0.7 x10^3/uL (1.0-4.8) Monocytes # (Auto) 1.0 x10^3/uL (0.0-1.1) Eosinophils # (Auto) 0.0 x10^3/uL (0.0-0.7) Basophils # (Auto) 0.0 x10^3/uL (0.0-0.2) Sodium Level 145 mmol/L (136-145) 143 mmol/L (136-145) Potassium Level 3.6 mmol/L (3.5-5.1) 3.7 mmol/L (3.5-5.1) Chloride Level 115 mmol/L (98-107) 113 mmol/L (98-107) Carbon Dioxide Level 21 mmol/L (21-32) 22 mmol/L (21-32) Anion Gap 9 (6-14) 8 (6-14) Blood Urea Nitrogen 53 mg/dL (8-26) 47 mg/dL (8-26) Creatinine 1.2 mg/dL (0.7-1.3) 1.1 mg/dL (0.7-1.3) Estimated GFR (Cockcroft-Gault) 57.5 63.6 BUN/Creatinine Ratio 44 (6-20) Glucose Level 115 mg/dL (70-99) 117 mg/dL (70-99) Calcium Level 7.5 mg/dL (8.5-10.1) 7.5 mg/dL (8.5-10.1) Phosphorus Level 3.2 mg/dL (2.6-4.7) 3.9 mg/dL (2.6-4.7) Magnesium Level 2.3 mg/dL (1.8-2.4) 2.4 mg/dL (1.8-2.4) Total Bilirubin 1.2 mg/dL (0.2-1.0) Aspartate Amino Transf (AST/SGOT) 95 U/L (15-37) Alanine Aminotransferase (ALT/SGPT) 96 U/L (16-63) Alkaline Phosphatase 196 U/L (46-116) Total Protein 4.9 g/dL (6.4-8.2) Albumin 1.0 g/dL (3.4-5.0) Albumin/Globulin Ratio 0.3 (1.0-1.7) O2 Saturation 96 % (92-99) Arterial Blood pH 7.55 (7.35-7.45) Arterial Blood pCO2 at Patient Temp 21 mmHg (35-46) Arterial Blood pO2 at Patient Temp 71 mmHg (65-108) Arterial Blood HCO3 18 mmol/L (21-28) Arterial Blood Base Excess -3 mmol/L (-3-3) FiO2 40 cpap Laboratory Tests Test 5/4/22 05:40 07/22/21 09:15 Sodium Level 143 mmol/L (136-145) Potassium Level 3.7 mmol/L (3.5-5.1) Chloride Level 113 mmol/L (98-107) Carbon Dioxide Level 22 mmol/L (21-32) Anion Gap 8 (6-14) Blood Urea Nitrogen 47 mg/dL (8-26) Creatinine 1.1 mg/dL (0.7-1.3) Estimated GFR (Cockcroft-Gault) 63.6 Glucose Level 117 mg/dL (70-99) Calcium Level 7.5 mg/dL (8.5-10.1) Phosphorus Level 3.9 mg/dL (2.6-4.7) Magnesium Level 2.4 mg/dL (1.8-2.4) O2 Saturation 96 % (92-99) Arterial Blood pH 7.55 (7.35-7.45) Arterial Blood pCO2 at Patient Temp 21 mmHg (35-46) Arterial Blood pO2 at Patient Temp 71 mmHg (65-108) Arterial Blood HCO3 18 mmol/L (21-28) Arterial Blood Base Excess -3 mmol/L (-3-3) FiO2 40 cpap Assessment/Plan s/p xlap cont TPN and supportive care d/w IR and drainage not felt to be beneficial cont vent wean d/w pt's son. Justicifation of Admission Dx: Justifications for Admission: Justification of Admission Dx: Yes Sepsis: Hemodynamic Instability STEVEN ZENDEJAS MD July 22, 2021 11:06
--- NOTE | 2021-07-22 12:00 | NUR ---
SS following for discharge planning. Physicians requesting referrals to [facility]. Referrals phoned and faxed to [facility], ; fax [phone], and [facility], ; fax [phone]. RN notified. SS will continue to follow for discharge planning.
[2021-07-22 12:06] LABS: BASE EXCESS ABG -3 mmol/L (-3-3); HCO3 ABG 20 mmol/L (21-28); PCO2 ABG 28 mmHg (35-46); PO2 ABG 88 mmHg (65-108); SAT O2 ABG 97 % (92-99)
[2021-07-22 12:12] LABS: FIO2 ABG 40 t tube
--- NOTE | 2021-07-22 13:38 | PDOC ---
Infectious Disease Note Subjective: Subjective Pt is intubated on vent Arousable TEMP 100*f Vital Signs: Vital Signs Vital Signs Date Time Temp Pulse Resp B/P (MAP) Pulse Ox O2 Delivery O2 Flow Rate FiO2 07/22/21 12:00 Mechanical Ventilator 07/22/21 12:00 99.1 79 26 128/56 99 99.1 Physical Exam: PHYSICAL EXAM GENERAL: , orally intubated [facility] opens eyes HEENT: Both pupils are round and reacting. No conjunctival lesion. No lesion in the mouth. Mouth cannot be visualized much as orally intubated. LUNGS: . Decreased breath sounds. HEART: S1, S2 regular. No murmur. ABDOMEN: Multiple tubes in the post-surgical dressing not opened. scrotal swelling, conway in place EXTREMITIES: Trace edema no cyanosis. SKIN: No generalized rash NEUROLOGIC: opens eyes, Medications: Inpatient Meds: Medications reviewed. Labs: Lab Laboratory Tests Test 07/22/21 05:40 07/22/21 09:15 07/22/21 11:55 Sodium Level 143 mmol/L (136-145) Potassium Level 3.7 mmol/L (3.5-5.1) Chloride Level 113 mmol/L (98-107) Carbon Dioxide Level 22 mmol/L (21-32) Anion Gap 8 (6-14) Blood Urea Nitrogen 47 mg/dL (8-26) Creatinine 1.1 mg/dL (0.7-1.3) Estimated GFR (Cockcroft-Gault) 63.6 Glucose Level 117 mg/dL (70-99) Calcium Level 7.5 mg/dL (8.5-10.1) Phosphorus Level 3.9 mg/dL (2.6-4.7) Magnesium Level 2.4 mg/dL (1.8-2.4) O2 Saturation 96 % (92-99) 97 % (92-99) Arterial Blood pH 7.55 (7.35-7.45) 7.46 (7.35-7.45) Arterial Blood pCO2 at Patient Temp 21 mmHg (35-46) 28 mmHg (35-46) Arterial Blood pO2 at Patient Temp 71 mmHg (65-108) 88 mmHg (65-108) Arterial Blood HCO3 18 mmol/L (21-28) 20 mmol/L (21-28) Arterial Blood Base Excess -3 mmol/L (-3-3) -3 mmol/L (-3-3) FiO2 40 cpap 40 t tube Objective: Assessment: 1. Perforated viscus, status post exploratory laparotomy, reduction of gastric volvulus, hiatal hernia repair, gastrostomy tube placement and duodenoscopy with tube placement done. 2. Hypotension, requiring vasopressor support. 3. Respiratory failure, requiring ventilatory support. 4. Renal failure. 5. History of prostate cancer. path + with melanoma 6. Pneumonia 7. CT abdomen and pelvis with intraabdominal fluid collection could be absceess Plan: Plan of Care Merrem , daptomycin and Zyvox Monitor labs and cultures F/U BC 07/18 CT C/A/P reviewed Gen surgery following Patient is not a candidate for IR drainage at this time cont supportive care Critically ill Prognosis very poor consider palliative care Discussed with MARISOL LAYNE MD July 22, 2021 13:38
[2021-07-22] MEDS: DAPTOmycin (GENERIC) IVPB 450 MG in IV NORMAL SALINE 50ML 50 ML IV SCH (20:05)
[2021-07-22] MEDS: FAMOTIDINE 20 MG/2 ML VIAL IVP SCH (20:07)
[2021-07-22] MEDS: ENOXAPARIN 40 MG/0.4 ML SYRINGE. SQ SCH (20:07)
[2021-07-22] MEDS: fentaNYL PF VIAL 100 MCG/2 ML VIAL IVP PRN (21:46)
[2021-07-22] MEDS ORDERED: DEXTROSE 70% IV SCH (22:00)
[2021-07-22] MEDS ORDERED: [UNRECOGNIZED DRUG - OTHER] IV SCH (22:00)
[2021-07-22] MEDS ORDERED: AMINO ACID IV SCH (22:00)
[2021-07-22] MEDS ORDERED: TOTAL PARENTERAL NUTRITION IV SCH (22:00)
--- NOTE | 2021-07-22 23:03 | PN ---
DATE: 07/22/2021 SUBJECTIVE: The patient is resting, slightly propped up in bed, in no apparent respiratory distress, continues to be intubated and mechanically ventilated. He is off sedation. On IV antibiotic and TPN. He is on pressure support, maintaining his oxygen saturation at 97% on FiO2 of 40%. He is awake, alert, opens eyes, tracks and follows commands. Today is the third day on pressure support. PHYSICAL EXAMINATION: GENERAL: When I examined him this morning, he was pale, but not jaundiced or cyanosed, no lymphadenopathy, no thyromegaly, no jugular venous distention. No lower limb edema. VITAL SIGNS: His heart rate was 71, blood pressure was 122/56, temperature was 99.2, respiratory rate was 27 and oxygen saturation was 100% on FiO2 of 40%. HEAD, EYES, EARS, NOSE AND THROAT: Normocephalic, atraumatic. NECK: Supple. HEART: Normal first and second heart sounds. No gallop or murmur. CHEST: Shows central trachea, equal bilateral chest expansion, air entry, vesicular breath sounds. I could not appreciate any crepitation or rhonchi. ABDOMEN: Distended, soft with a gastrostomy tube in place as well as a jejunostomy. No guarding or rigidity, no organomegaly. NEUROLOGIC: He was definitely more awake, alert, opens his eyes, tracks and responds to verbal commands. Has an indwelling Carreno catheter. His intake over the last 24 hours was 1200, output 1175. LABORATORY DATA: His arterial blood gases showed a pH of 7.55, pCO2 of 21, pO2 of 71, bicarbonate of 18 and oxygen saturation of 96% on FiO2 of 40%. His white cell count as of yesterday was 16.8, hemoglobin 10, hematocrit 31, MCV 88 and platelet count 327. Serum sodium was 143, potassium 3.7, chloride 113, bicarbonate 22, anion gap of 8, BUN 47, creatinine 1.1, estimated GFR was 63 mL per minute. His glucose was 117, calcium was 7.5, phosphorus 3.9, magnesium was 2.4. ASSESSMENT: 1. Perforated viscus, status post exploratory laparotomy, reduction of the gastric volvulus and hiatal hernia repair and gastrostomy tube placement as well as jejunostomy tube placement. 2. Acute hypoxic respiratory failure, for which he continues to be intubated and mechanically ventilated. He is off sedation for more than 5 days. He is maintaining his oxygen saturation at 97% on FiO2 of 40%. He is currently on pressure support for the third day. 3. Hypotension, resolved. In fact, his Levophed is discontinued and he is now normotensive. 4. Acute kidney injury, has improved. His creatinine is down to 1.1. 5. His white cell count has risen up to 19.8, for which he did culture and he is now on meropenem, daptomycin and linezolid. CT scan showed that he has what seemed to be an abscess. 6. Liver enzymes are elevated, but trending down. 7. He has severe protein-calorie malnutrition. Serum albumin is only 1 g/dL. 8. He has metastatic melanoma, for which he was seen by the oncologist, but no plans for any treatment for now as the patient continued to be on mechanical ventilation and antibiotic. 9. He has multiple preexisting conditions include: A. Hypertension. B. Hiatal hernia. C. Gastroesophageal reflux disease. D. Gastric ulcer. E. Chronic constipation. PLAN: Continued mechanical ventilation, wean as tolerated. Continue with TPN. Continue with IV antibiotic. Continue with DVT prophylaxis and GI prophylaxis. FELECIA DR: Marta TID: [id number]
[2021-07-23] VITALS (24 sets, daily range): BP systolic 105–147; BP diastolic 42–72
[2021-07-23] MEDS: MEROPENEM 500 MG in IV NORMAL SALINE 50ML 50 ML IV SCH ×3 (05:24→22:22)
[2021-07-23 05:44] LABS: BASO # 0.1 x10^3/uL (0.0-0.2); BASO % 0 % (0-3); EOS % 0 % (0-3); HEMOGLOBIN 9.9 g/dL (13.0-17.5); LYMPH # 0.6 x10^3/uL (1.0-4.8); LYMPH % 4 % (24-48); MEAN CORPUSCULAR HEMOGLOBIN 29 pg (25-35); MEAN CORPUSCULAR HGB CONC 33 g/dL (31-37); MEAN CORPUSCULAR VOLUME 88 fL (79-100); MONO # 1.2 x10^3/uL (0.0-1.1); MONO % 7 % (0-9); NEUT # 14.6 x10^3/uL (1.8-7.7); NEUT % 89 % (31-73); PLATELET COUNT 449 x10^3/uL (140-400); RED BLOOD COUNT 3.43 x10^6/uL (4.30-5.70); RED CELL DISTRIBUTION WIDTH 16.4 % (11.5-14.5); WHITE BLOOD COUNT 16.5 x10^3/uL (4.0-11.0)
[2021-07-23 06:24] LABS: ALBUMIN/GLOBULIN RATIO 0.2 (1.0-1.7); CALCIUM 7.5 mg/dL (8.5-10.1); CREATININE 1.2 mg/dL (0.7-1.3); GFR 57.5; MAGNESIUM 2.4 mg/dL (1.8-2.4); PHOSPHORUS 4.7 mg/dL (2.6-4.7); POTASSIUM 4.3 mmol/L (3.5-5.1); TOTAL PROTEIN 5.2 g/dL (6.4-8.2)
--- NOTE | 2021-07-23 07:28 | RAD ---
XR CHEST 1V Clinical History: Reason: RF 108 / Spl. Instructions: / History: Technique: AP view of the chest was obtained at 07/23/2021 5:36 AM. Comparison: None. Findings: The heart is normal sized. The pulmonary vasculature is normal. There is patchy opacities of the left lung and there is increased reticular opacities of the right lung and there is obscuration left rm diaphragm. The NG tube and left subclavian line is again seen unchanged. This moderate degenerative changes of the right shoulder. Impression: 1. Moderate left pleural effusion and bilateral pulmonary infiltrates left worse than right. 2. Compared to the prior study there is improved aeration of the right lung. Electronically signed by: Jez Martin III, MD (07/23/2021 7:26 AM) [facility]
[2021-07-23 08:46] LABS: BASE EXCESS ABG -4 mmol/L (-3-3); HCO3 ABG 20 mmol/L (21-28); PCO2 ABG 29 mmHg (35-46); PO2 ABG 90 mmHg (65-108); SAT O2 ABG 97 % (92-99)
--- NOTE | 2021-07-23 09:12 | PDOC ---
PULMONARY PROGRESS NOTES DATE: 07/23/21 TIME: 09:09 Subjective Patient remains assist-control mode with daily CPAP trials. I observed him during CPAP trial. He still lethargic. He becomes tachypneic during CPAP trials. He still very weak. Vitals Vital Signs Date Time Temp Pulse Resp B/P (MAP) Pulse Ox O2 Delivery O2 Flow Rate FiO2 07/23/21 07:43 96 Ventilator 07/23/21 06:00 78 28 134/67 07/23/21 04:00 99.0 99.0 General: Confused Lungs: Clear Cardiovascular: S1, S2 Abdomen: Soft, Other (Distended) Extremities: Other (Significant scrotal edema.) Skin: Warm Labs Laboratory Tests Test 07/22/21 05:40 07/22/21 09:15 07/22/21 11:55 07/23/21 05:35 Sodium Level 143 mmol/L (136-145) 143 mmol/L (136-145) Potassium Level 3.7 mmol/L (3.5-5.1) 4.3 mmol/L (3.5-5.1) Chloride Level 113 mmol/L (98-107) 112 mmol/L (98-107) Carbon Dioxide Level 22 mmol/L (21-32) 23 mmol/L (21-32) Anion Gap 8 (6-14) 8 (6-14) Blood Urea Nitrogen 47 mg/dL (8-26) 42 mg/dL (8-26) Creatinine 1.1 mg/dL (0.7-1.3) 1.2 mg/dL (0.7-1.3) Estimated GFR (Cockcroft-Gault) 63.6 57.5 Glucose Level 117 mg/dL (70-99) 132 mg/dL (70-99) Calcium Level 7.5 mg/dL (8.5-10.1) 7.5 mg/dL (8.5-10.1) Phosphorus Level 3.9 mg/dL (2.6-4.7) 4.7 mg/dL (2.6-4.7) Magnesium Level 2.4 mg/dL (1.8-2.4) 2.4 mg/dL (1.8-2.4) O2 Saturation 96 % (92-99) 97 % (92-99) Arterial Blood pH 7.55 (7.35-7.45) 7.46 (7.35-7.45) Arterial Blood pCO2 at Patient Temp 21 mmHg (35-46) 28 mmHg (35-46) Arterial Blood pO2 at Patient Temp 71 mmHg (65-108) 88 mmHg (65-108) Arterial Blood HCO3 18 mmol/L (21-28) 20 mmol/L (21-28) Arterial Blood Base Excess -3 mmol/L (-3-3) -3 mmol/L (-3-3) FiO2 40 cpap 40 t tube White Blood Count 16.5 x10^3/uL (4.0-11.0) Red Blood Count 3.43 x10^6/uL (4.30-5.70) Hemoglobin 9.9 g/dL (13.0-17.5) Hematocrit 30.0 % (39.0-53.0) Mean Corpuscular Volume 88 fL (79-100) Mean Corpuscular Hemoglobin 29 pg (25-35) Mean Corpuscular Hemoglobin Concent 33 g/dL (31-37) Red Cell Distribution Width 16.4 % (11.5-14.5) Platelet Count 449 x10^3/uL (140-400) Neutrophils (%) (Auto) 89 % (31-73) Lymphocytes (%) (Auto) 4 % (24-48) Monocytes (%) (Auto) 7 % (0-9) Eosinophils (%) (Auto) 0 % (0-3) Basophils (%) (Auto) 0 % (0-3) Neutrophils # (Auto) 14.6 x10^3/uL (1.8-7.7) Lymphocytes # (Auto) 0.6 x10^3/uL (1.0-4.8) Monocytes # (Auto) 1.2 x10^3/uL (0.0-1.1) Eosinophils # (Auto) 0.0 x10^3/uL (0.0-0.7) Basophils # (Auto) 0.1 x10^3/uL (0.0-0.2) BUN/Creatinine Ratio 35 (6-20) Total Bilirubin 1.0 mg/dL (0.2-1.0) Aspartate Amino Transf (AST/SGOT) 88 U/L (15-37) Alanine Aminotransferase (ALT/SGPT) 93 U/L (16-63) Alkaline Phosphatase 194 U/L (46-116) Total Protein 5.2 g/dL (6.4-8.2) Albumin 1.0 g/dL (3.4-5.0) Albumin/Globulin Ratio 0.2 (1.0-1.7) Test 07/23/21 08:45 O2 Saturation 97 % (92-99) Arterial Blood pH 7.45 (7.35-7.45) Arterial Blood pCO2 at Patient Temp 29 mmHg (35-46) Arterial Blood pO2 at Patient Temp 90 mmHg (65-108) Arterial Blood HCO3 20 mmol/L (21-28) Arterial Blood Base Excess -4 mmol/L (-3-3) FiO2 40 cpap Laboratory Tests Test 07/22/21 09:15 07/22/21 11:55 07/23/21 05:35 07/23/21 08:45 O2 Saturation 96 % (92-99) 97 % (92-99) 97 % (92-99) Arterial Blood pH 7.55 (7.35-7.45) 7.46 (7.35-7.45) 7.45 (7.35-7.45) Arterial Blood pCO2 at Patient Temp 21 mmHg (35-46) 28 mmHg (35-46) 29 mmHg (35-46) Arterial Blood pO2 at Patient Temp 71 mmHg (65-108) 88 mmHg (65-108) 90 mmHg (65-108) Arterial Blood HCO3 18 mmol/L (21-28) 20 mmol/L (21-28) 20 mmol/L (21-28) Arterial Blood Base Excess -3 mmol/L (-3-3) -3 mmol/L (-3-3) -4 mmol/L (-3-3) FiO2 40 cpap 40 t tube 40 cpap White Blood Count 16.5 x10^3/uL (4.0-11.0) Red Blood Count 3.43 x10^6/uL (4.30-5.70) Hemoglobin 9.9 g/dL (13.0-17.5) Hematocrit 30.0 % (39.0-53.0) Mean Corpuscular Volume 88 fL (79-100) Mean Corpuscular Hemoglobin 29 pg (25-35) Mean Corpuscular Hemoglobin Concent 33 g/dL (31-37) Red Cell Distribution Width 16.4 % (11.5-14.5) Platelet Count 449 x10^3/uL (140-400) Neutrophils (%) (Auto) 89 % (31-73) Lymphocytes (%) (Auto) 4 % (24-48) Monocytes (%) (Auto) 7 % (0-9) Eosinophils (%) (Auto) 0 % (0-3) Basophils (%) (Auto) 0 % (0-3) Neutrophils # (Auto) 14.6 x10^3/uL (1.8-7.7) Lymphocytes # (Auto) 0.6 x10^3/uL (1.0-4.8) Monocytes # (Auto) 1.2 x10^3/uL (0.0-1.1) Eosinophils # (Auto) 0.0 x10^3/uL (0.0-0.7) Basophils # (Auto) 0.1 x10^3/uL (0.0-0.2) Sodium Level 143 mmol/L (136-145) Potassium Level 4.3 mmol/L (3.5-5.1) Chloride Level 112 mmol/L (98-107) Carbon Dioxide Level 23 mmol/L (21-32) Anion Gap 8 (6-14) Blood Urea Nitrogen 42 mg/dL (8-26) Creatinine 1.2 mg/dL (0.7-1.3) Estimated GFR (Cockcroft-Gault) 57.5 BUN/Creatinine Ratio 35 (6-20) Glucose Level 132 mg/dL (70-99) Calcium Level 7.5 mg/dL (8.5-10.1) Phosphorus Level 4.7 mg/dL (2.6-4.7) Magnesium Level 2.4 mg/dL (1.8-2.4) Total Bilirubin 1.0 mg/dL (0.2-1.0) Aspartate Amino Transf (AST/SGOT) 88 U/L (15-37) Alanine Aminotransferase (ALT/SGPT) 93 U/L (16-63) Alkaline Phosphatase 194 U/L (46-116) Total Protein 5.2 g/dL (6.4-8.2) Albumin 1.0 g/dL (3.4-5.0) Albumin/Globulin Ratio 0.2 (1.0-1.7) Medications Active Scripts Medications Dose Route/Sig Max Daily Dose Days Date Category [Pantoprazole] 40 MG Tablet.dr 40 Mg PO BIDBFRMEAL 06/22/17 Rx Carafate (Sucralfate) 1 Gm/10 Ml Oral.susp 1 Gm PO TIDBFRMEAL 06/22/17 Rx Avalide 150-12.5 Mg Tablet (Irbesartan/Hydrochlorothiazide) 1 Each Tablet 1 Each PO DAILY 06/19/17 Reported Comments Chest x-ray reviewed 07/23/2021 Left pleural effusion and infiltrate. CT chest dated 07/19/2021 reviewed. Bilateral lung nodules consistent with metastatic disease. Mild to moderate bilateral pleural effusions with associated compressive atelectasis. Chest x-ray reviewed 07/17/2021. Mild progression of interstitial infiltrates and pleural effusion consistent with CHF. There is a skinfold on the left apex unlikely pneumothorax. Impression . Acute respiratory failure multifactorial status post exploratory laparotomy for perforated viscus Septic shock. Resolved. Off Levophed. Fever, per ID Acute renal failure. History of prostate cancer Severe protein malnutrition present upon admission. 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 Bilateral lung nodules suggestive of metastasis to the lungs. Bilateral moderate pleural effusions with associated atelectasis related to low oncotic pressure. CT chest reviewed dated 07/19/2021 Toxic metabolic encephalopathy, improving Abnormal liver function test. \ Plan . Updated 07/23 On pressure support of 16 patient's respiratory rate in the high 20s. Still very weak. He still has moderate secretions. I rested him back on assist control mode. Labs reviewed updated Appreciate surgery input Suspect patient will be extubated in the next 24 to 48 hours Updated son at the bedside ABG noticed PaO2 of 71 on 40% I have talked to patient's son in detail. I did explain to him that patient is weak and becomes tachypneic during CPAP trials. He still has moderate secretions. He may not be able to protect his airway once extubated. He will be better off with a tracheostomy. Son agrees. Critical care time of 30 minutes Updated 07/22 On pressure support of 16 patient's respiratory rate less than 30 I placed him on pressure support of 8 and his respiratory rate harinder to above 36 Will attempt T-tube trial Labs reviewed updated Appreciate surgery input Suspect patient will be extubated in the next 24 to 48 hours Updated son at the bedside ABG noticed PaO2 of 71 on 40% Critical care time of 30 minutes 5/3 Patient more awake alert Currently on pressure support of 16 tidal volume approximately 400 Dropped his pressure support to 5 his tidal volume was only about 250 Off of pressors Continue broad-spectrum antibiotics per ID Labs reviewed ABG noted PO2 of 112 from 5 1 Follow surgery input Discussed with son at the bedside CCT 30 minutes YASMIN WEAVER MD July 23, 2021 09:12
--- NOTE | 2021-07-23 09:27 | PDOC ---
DATE OF SERVICE DATE: 07/23/21 TIME: 09:25 SUBJECTIVE ROS Intubated, on vent. following some commands Lethargic OBJECTIVE Vital Signs Vital Signs Date Time Temp Pulse Resp B/P (MAP) Pulse Ox O2 Delivery O2 Flow Rate FiO2 07/23/21 07:43 96 Ventilator 07/23/21 06:00 78 28 134/67 07/23/21 04:00 99.0 99.0 I & 0 Intake and Output0 07/23/21 07:00 Intake Total 1278.7 ml Output Total 1405 ml Balance -126.3 ml IV Total 1178.7 ml Other 100 ml Output Urine Total 1155 ml Drainage Total 250 ml # Bowel Movements 1 PHYSICAL EXAM Physical Exam GENERAL: orally intubated HEENT: Both pupils are round and reacting. orally intubated. NECK: Supple, no JVP, LUNGS: Clear. Decreased breath sounds. HEART: S1, S2 regular. No gallop or murmur. ABDOMEN: Multiple tubes in the post-surgical dressing EXTREMITIES: No edema, cyanosis. SKIN: Unremarkable. NEUROLOGIC: sedated and intubated. Carreno + DIAGNOSIS/ASSESSMENT Assessment & Plan SHELDON-- ATN/ Hypotensive/Bowel perf . UA unremarkable , CT scan No e/o BALLARD/Hydronephrosis , Renal function stable E-Lytes stable . Supportive care,maintain fluid balance, avoid Nephrotoxins SHELDON in 2018, resolved. No Interval labs available Anemia- Hgb trending down HyperNatremia- mild- Needs free water, adjust Na in TPN Renal Calculus 5 mm nonobstructing calculus is seen involving the lower pole of the right kidney. Perforated viscus, status post exploratory laparotomy, reduction of gastric volvulus, hiatal hernia repair, gastrostomy tube placement and duodenoscopy with tube placement done. 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 CT chest/Abdomen Redemonstration of numerous metastatic disease in the lungs and throughout the abdomen. Acute Respiratory failure, requiring ventilatory support. Plan for Tracheostomy. History of prostate cancer. HypoPhos- Normal ; Adjust in TPN as indicated Nutrition- On TPN COMMENT/RELEVANT DATA Meds Current Medications Medications (Trade) Dose Ordered Sig/Armin Start Time Stop Time Status Last Admin Dose Admin Albumin Human 500 ml @ 125 mls/hr 1X ONCE 07/12/21 12:45 07/12/21 16:44 DC Cefoxitin Sodium (Mefoxin) 1 gm Q6H 07/12/21 14:00 07/13/21 02:01 DC 07/13/21 01:47 1 GM Ceftriaxone Sodium (Rocephin) 2 gm Q24H 07/12/21 07:00 07/13/21 09:46 DC 07/13/21 06:30 2 GM Daptomycin 450 mg/ Sodium Chloride 50 ml @ 100 mls/hr Q24H 07/18/21 20:00 07/22/21 20:05 100 MLS/HR Dexamethasone Sodium Phosphate (Decadron) 4 mg STK-MED ONCE 07/12/21 07:43 07/12/21 07:44 DC Digoxin (Lanoxin) 500 mcg 1X ONCE 07/14/21 04:30 07/14/21 04:31 DC 07/14/21 04:40 500 MCG Enoxaparin Sodium (Lovenox 30mg Syringe) 30 mg Q24H 07/12/21 21:00 07/16/21 09:07 DC 07/15/21 21:04 30 MG Enoxaparin Sodium (Lovenox 40mg Syringe) 40 mg Q24H 07/16/21 21:00 07/22/21 20:07 40 MG Ephedrine Sulfate (ePHEDrine PF IN SALINE SYRINGE) 50 mg STK-MED ONCE 07/12/21 10:27 07/12/21 10:27 DC Etomidate (Amidate) 20 mg STK-MED ONCE 07/12/21 08:30 07/12/21 08:30 DC Famotidine (Pepcid Vial) 20 mg QHS 07/12/21 21:00 07/22/21 20:07 20 MG Fentanyl Citrate (Fentanyl 2ml Vial) 25 mcg PRN Q1HR PRN 07/16/21 19:30 07/22/21 21:46 25 MCG Furosemide (Lasix) 40 mg 1X ONCE 07/17/21 11:45 07/17/21 11:46 DC 07/17/21 12:28 40 MG Glycerin/ Hypromellose/ Polyethylene (Artificial Tears) 1 drop PRN Q1HR PRN 07/12/21 12:45 Glycopyrrolate (Robinul) 1 mg STK-MED ONCE 07/12/21 07:45 07/12/21 07:45 DC Hydromorphone HCl (Dilaudid) 0.5 mg PRN Q10MIN PRN 07/12/21 08:00 07/13/21 07:59 DC Info (Tpn Per Pharmacy) 1 each PRN DAILY PRN 07/15/21 10:30 07/22/21 08:35 1 EACH Labetalol HCl (Normodyne Iv Push) 10 mg PRN Q4HRS PRN 07/17/21 09:15 Linezolid/Dextrose 300 ml @ 300 mls/hr Q12HR 07/19/21 14:00 07/23/21 08:33 300 MLS/HR Magnesium Sulfate 50 ml @ 25 mls/hr 1X ONCE 07/14/21 12:30 07/14/21 14:29 DC 07/14/21 15:22 25 MLS/HR Meropenem 500 mg/ Sodium Chloride 50 ml @ 100 mls/hr Q8HRS 07/18/21 22:00 07/23/21 05:24 100 MLS/HR Metronidazole 100 ml @ 100 mls/hr Q8HRS 07/12/21 14:00 07/13/21 09:46 DC 07/13/21 06:15 100 MLS/HR Midazolam HCl 100 ml @ 1 mls/hr CONT PRN 07/12/21 12:45 07/16/21 19:27 DC 07/12/21 16:55 1 MLS/HR Midazolam HCl (Versed) 2 mg STK-MED ONCE 07/12/21 07:44 07/12/21 07:44 DC Morphine Sulfate (Morphine Sulfate) 1 mg PRN Q1HR PRN 07/12/21 12:15 07/12/21 13:51 DC Naloxone HCl (Narcan) 0.4 mg PRN Q2MIN PRN 07/12/21 12:15 Neostigmine [place] (Neostigmine Methylsulfate) 5 mg STK-MED ONCE 07/12/21 07:44 07/12/21 07:44 DC Norepinephrine Bitartrate 32 mg/ Dextrose 250 ml @ 3.192 mls/ hr CONT PRN 07/15/21 03:30 07/15/21 04:15 15.961 MLS/HR Norepinephrine Bitartrate 8 mg/ Dextrose 258 ml @ 11.204 mls/ hr CONT PRN 07/12/21 13:45 4/27/22 03:14 DC 07/14/21 23:22 56.018 MLS/HR Ondansetron HCl (Zofran) 4 mg PRN Q6HRS PRN 07/12/21 12:15 Phenylephrine HCl (Lionel-Synephrine Inj) 10 mg STK-MED ONCE 07/12/21 11:54 07/12/21 11:55 DC Phenylephrine HCl (PHENYLEPHRINE in 0.9% NACL PF) 1 mg STK-MED ONCE 07/12/21 10:27 07/12/21 10:27 DC Piperacillin Sod/ Tazobactam Sod 2.25 gm/Sodium Chloride 50 ml @ 100 mls/hr Q6HRS 07/13/21 12:00 07/18/21 18:02 DC 07/18/21 17:10 100 MLS/HR Potassium Phosphate 15 mmol/ Sodium Chloride 105 ml @ 52.5 mls/hr 1X ONCE 07/17/21 12:00 07/17/21 13:59 DC 07/17/21 12:32 52.5 MLS/HR Prochlorperazine Edisylate (Compazine) 5 mg PACU PRN PRN 07/12/21 08:00 07/13/21 07:59 DC Propofol (Diprivan) 1,000 mg STK-MED ONCE 07/12/21 13:00 07/13/21 12:22 DC Ringer's Solution 1,000 ml @ 100 mls/hr Q10H 07/12/21 12:15 07/13/21 19:33 DC 07/13/21 10:39 100 MLS/HR Rocuronium [place] (Zemuron) 100 mg STK-MED ONCE 07/12/21 09:34 07/12/21 09:34 DC Sevoflurane (Ultane) 60 ml STK-MED ONCE 07/12/21 21:15 07/12/21 21:15 DC Sodium Bicarbonate 150 meq/Dextrose 1,150 ml @ 75 mls/hr [id number] 07/12/21 14:30 07/13/21 19:34 DC 07/13/21 05:37 75 MLS/HR Sodium Acetate 70 meq/Potassium Chloride 50 meq/ Potassium Phosphate 22 mmol/ Magnesium Sulfate 8 meq/ Multivitamins 10 ml/Zinc/Copper/ Manganese/ Selenium 1 ml/ Total Parenteral Nutrition/Amino Acids/Dextrose/ Fat Emulsion Intravenous 1,512 ml @ 63 mls/hr TPN CONT 07/18/21 22:00 07/19/21 21:59 DC 07/18/21 21:44 63 MLS/HR Sodium Bicarbonate (Sodium Bicarb Adult 8.4% Syr) 50 meq STK-MED ONCE 07/12/21 21:15 07/12/21 21:15 DC Sodium Chloride (Normal Saline Flush) 3 ml QSHIFT PRN 07/12/21 12:15 Sodium Chloride 40 meq/Potassium Acetate 50 meq/ Potassium Phosphate 22 mmol/ Magnesium Sulfate 6 meq/ Multivitamins 10 ml/Zinc/Copper/ Manganese/ Selenium 1 ml/ Total Parenteral Nutrition/Amino Acids/Dextrose/ Fat Emulsion Intravenous 1,680 ml @ 70 mls/hr TPN CONT 07/20/21 22:00 07/21/21 21:59 DC 07/20/21 22:14 70 MLS/HR Sodium Chloride 40 meq/Potassium Acetate 50 meq/ Potassium Phosphate 22 mmol/ Magnesium Sulfate 8 meq/ Multivitamins 10 ml/Zinc/Copper/ Manganese/ Selenium 1 ml/ Total Parenteral Nutrition/Amino Acids/Dextrose/ Fat Emulsion Intravenous 1,680 ml @ 70 mls/hr TPN CONT 07/19/21 22:00 07/20/21 21:59 DC 07/19/21 21:40 70 MLS/HR Sodium Chloride 40 meq/Potassium Acetate 50 meq/ Potassium Phosphate 26 mmol/ Magnesium Sulfate 6 meq/ Multivitamins 10 ml/Zinc/Copper/ Manganese/ Selenium 1 ml/ Total Parenteral Nutrition/Amino Acids/Dextrose/ Fat Emulsion Intravenous 1,680 ml @ 70 mls/hr TPN CONT 07/21/21 22:00 07/21/21 08:54 DC Sodium Chloride 40 meq/Potassium Acetate 60 meq/ Potassium Phosphate 30 mmol/ Magnesium Sulfate 6 meq/ Multivitamins 10 ml/Zinc/Copper/ Manganese/ Selenium 1 ml/ Total Parenteral Nutrition/Amino Acids/Dextrose/ Fat Emulsion Intravenous 1,680 ml @ 70 mls/hr TPN CONT 07/22/21 22:00 07/23/21 21:59 07/22/21 23:29 70 MLS/HR Sodium Chloride 70 meq/Potassium Chloride 50 meq/ Potassium Phosphate 20 mmol/ Magnesium Sulfate 10 meq/ Multivitamins 10 ml/Zinc/Copper/ Manganese/ Selenium 1 ml/ Total Parenteral Nutrition/Amino Acids/Dextrose/ Fat Emulsion Intravenous 1,512 ml @ 63 mls/hr TPN CONT 07/16/21 22:00 07/17/21 21:59 DC 07/16/21 21:38 63 MLS/HR Sodium Chloride 70 meq/Potassium Chloride 50 meq/ Potassium Phosphate 25 mmol/ Magnesium Sulfate 10 meq/ Multivitamins 10 ml/Zinc/Copper/ Manganese/ Selenium 1 ml/ Total Parenteral Nutrition/Amino Acids/Dextrose/ Fat Emulsion Intravenous 1,512 ml @ 63 mls/hr TPN CONT 07/17/21 22:00 07/18/21 21:59 DC 07/17/21 20:22 63 MLS/HR Sodium Chloride 90 meq/Potassium Chloride 50 meq/ Potassium Phosphate 13.6 mmol/Magnesium Sulfate 10 meq/ Multivitamins 10 ml/Zinc/Copper/ Manganese/ Selenium 1 ml/ Total Parenteral Nutrition/Amino Acids/Dextrose/ Fat Emulsion Intravenous 1,512 ml @ 63 mls/hr TPN CONT 07/15/21 22:00 07/16/21 21:59 DC 07/15/21 22:05 63 MLS/HR Succinylcholine Chloride (Anectine) 200 mg STK-MED ONCE 07/12/21 07:44 07/12/21 07:44 DC Lab Laboratory Tests Test 07/22/21 11:55 07/23/21 05:35 07/23/21 08:45 O2 Saturation 97 % (92-99) 97 % (92-99) Arterial Blood pH 7.46 (7.35-7.45) 7.45 (7.35-7.45) Arterial Blood pCO2 at Patient Temp 28 mmHg (35-46) 29 mmHg (35-46) Arterial Blood pO2 at Patient Temp 88 mmHg (65-108) 90 mmHg (65-108) Arterial Blood HCO3 20 mmol/L (21-28) 20 mmol/L (21-28) Arterial Blood Base Excess -3 mmol/L (-3-3) -4 mmol/L (-3-3) FiO2 40 t tube 40 cpap White Blood Count 16.5 x10^3/uL (4.0-11.0) Red Blood Count 3.43 x10^6/uL (4.30-5.70) Hemoglobin 9.9 g/dL (13.0-17.5) Hematocrit 30.0 % (39.0-53.0) Mean Corpuscular Volume 88 fL (79-100) Mean Corpuscular Hemoglobin 29 pg (25-35) Mean Corpuscular Hemoglobin Concent 33 g/dL (31-37) Red Cell Distribution Width 16.4 % (11.5-14.5) Platelet Count 449 x10^3/uL (140-400) Neutrophils (%) (Auto) 89 % (31-73) Lymphocytes (%) (Auto) 4 % (24-48) Monocytes (%) (Auto) 7 % (0-9) Eosinophils (%) (Auto) 0 % (0-3) Basophils (%) (Auto) 0 % (0-3) Neutrophils # (Auto) 14.6 x10^3/uL (1.8-7.7) Lymphocytes # (Auto) 0.6 x10^3/uL (1.0-4.8) Monocytes # (Auto) 1.2 x10^3/uL (0.0-1.1) Eosinophils # (Auto) 0.0 x10^3/uL (0.0-0.7) Basophils # (Auto) 0.1 x10^3/uL (0.0-0.2) Sodium Level 143 mmol/L (136-145) Potassium Level 4.3 mmol/L (3.5-5.1) Chloride Level 112 mmol/L (98-107) Carbon Dioxide Level 23 mmol/L (21-32) Anion Gap 8 (6-14) Blood Urea Nitrogen 42 mg/dL (8-26) Creatinine 1.2 mg/dL (0.7-1.3) Estimated GFR (Cockcroft-Gault) 57.5 BUN/Creatinine Ratio 35 (6-20) Glucose Level 132 mg/dL (70-99) Calcium Level 7.5 mg/dL (8.5-10.1) Phosphorus Level 4.7 mg/dL (2.6-4.7) Magnesium Level 2.4 mg/dL (1.8-2.4) Total Bilirubin 1.0 mg/dL (0.2-1.0) Aspartate Amino Transf (AST/SGOT) 88 U/L (15-37) Alanine Aminotransferase (ALT/SGPT) 93 U/L (16-63) Alkaline Phosphatase 194 U/L (46-116) Total Protein 5.2 g/dL (6.4-8.2) Albumin 1.0 g/dL (3.4-5.0) Albumin/Globulin Ratio 0.2 (1.0-1.7) Results All relevant outside records, renal labs, imaging studies, telemetry/EKG's were reviewed. Justicifation of Admission Dx: Justifications for Admission: Justification of Admission Dx: Yes Sepsis: Hemodynamic Instability JENNIE MOODY MD July 23, 2021 09:27
--- NOTE | 2021-07-23 09:52 | NUR ---
SS following up with discharge planning. SS reviewed pt chart and discussed with RNMatteo. Pt accepted at [facility], ; fax [phone], and [facility], ; [phone]. Packet placed on chart. SS will continue to follow for discharge planning.
--- NOTE | 2021-07-23 12:09 | PDOC ---
Infectious Disease Note Subjective: Subjective Pt is intubated on vent Arousable afebrile last 24 hrs Vital Signs: Vital Signs Vital Signs Date Time Temp Pulse Resp B/P (MAP) Pulse Ox O2 Delivery O2 Flow Rate FiO2 07/23/21 11:57 94 Ventilator 07/23/21 06:00 78 28 134/67 07/23/21 04:00 99.0 99.0 Physical Exam: PHYSICAL EXAM GENERAL: , orally intubated gentleman in [facility] opens eyes HEENT: Both pupils are round and reacting. No conjunctival lesion. No lesion in the mouth. Mouth cannot be visualized much as orally intubated. LUNGS: . Decreased breath sounds. HEART: S1, S2 regular. No murmur. ABDOMEN: Multiple tubes in the post-surgical dressing not opened. scrotal swelling, conway in place EXTREMITIES: No cyanosis, generalized edema SKIN: No generalized rash NEUROLOGIC: opens eyes, Medications: Inpatient Meds: Medications reviewed. Labs: Lab Laboratory Tests Test 07/23/21 05:35 07/23/21 08:45 White Blood Count 16.5 x10^3/uL (4.0-11.0) Red Blood Count 3.43 x10^6/uL (4.30-5.70) Hemoglobin 9.9 g/dL (13.0-17.5) Hematocrit 30.0 % (39.0-53.0) Mean Corpuscular Volume 88 fL (79-100) Mean Corpuscular Hemoglobin 29 pg (25-35) Mean Corpuscular Hemoglobin Concent 33 g/dL (31-37) Red Cell Distribution Width 16.4 % (11.5-14.5) Platelet Count 449 x10^3/uL (140-400) Neutrophils (%) (Auto) 89 % (31-73) Lymphocytes (%) (Auto) 4 % (24-48) Monocytes (%) (Auto) 7 % (0-9) Eosinophils (%) (Auto) 0 % (0-3) Basophils (%) (Auto) 0 % (0-3) Neutrophils # (Auto) 14.6 x10^3/uL (1.8-7.7) Lymphocytes # (Auto) 0.6 x10^3/uL (1.0-4.8) Monocytes # (Auto) 1.2 x10^3/uL (0.0-1.1) Eosinophils # (Auto) 0.0 x10^3/uL (0.0-0.7) Basophils # (Auto) 0.1 x10^3/uL (0.0-0.2) Sodium Level 143 mmol/L (136-145) Potassium Level 4.3 mmol/L (3.5-5.1) Chloride Level 112 mmol/L (98-107) Carbon Dioxide Level 23 mmol/L (21-32) Anion Gap 8 (6-14) Blood Urea Nitrogen 42 mg/dL (8-26) Creatinine 1.2 mg/dL (0.7-1.3) Estimated GFR (Cockcroft-Gault) 57.5 BUN/Creatinine Ratio 35 (6-20) Glucose Level 132 mg/dL (70-99) Calcium Level 7.5 mg/dL (8.5-10.1) Phosphorus Level 4.7 mg/dL (2.6-4.7) Magnesium Level 2.4 mg/dL (1.8-2.4) Total Bilirubin 1.0 mg/dL (0.2-1.0) Aspartate Amino Transf (AST/SGOT) 88 U/L (15-37) Alanine Aminotransferase (ALT/SGPT) 93 U/L (16-63) Alkaline Phosphatase 194 U/L (46-116) Total Protein 5.2 g/dL (6.4-8.2) Albumin 1.0 g/dL (3.4-5.0) Albumin/Globulin Ratio 0.2 (1.0-1.7) O2 Saturation 97 % (92-99) Arterial Blood pH 7.45 (7.35-7.45) Arterial Blood pCO2 at Patient Temp 29 mmHg (35-46) Arterial Blood pO2 at Patient Temp 90 mmHg (65-108) Arterial Blood HCO3 20 mmol/L (21-28) Arterial Blood Base Excess -4 mmol/L (-3-3) FiO2 40 cpap Objective: Assessment: 1. Perforated viscus, status post exploratory laparotomy, reduction of gastric volvulus, hiatal hernia repair, gastrostomy tube placement and duodenoscopy with tube placement done. 2. Hypotension, requiring vasopressor support. 3. Respiratory failure, requiring ventilatory support. Pleural effusion and p ulm infiltrate 4. Renal failure. 5. History of prostate cancer. path + with melanoma 6. Pneumonia 7. CT abdomen and pelvis with intraabdominal fluid collection could be abscess, not a candidate for IR drainage Plan: Plan of Care Merrem , daptomycin and Zyvox Monitor labs and cultures F/U BC 07/18 CT C/A/P reviewed Gen surgery following Patient is not a candidate for IR drainage at this time cont supportive care Critically ill Prognosis very poor consider palliative care Awaiting trach tomorrow Discussed with MARISOL LAYNE MD July 23, 2021 12:09
[2021-07-23] MEDS: TPN PER PHARMACY MC PRN (12:14)
--- NOTE | 2021-07-23 12:19 | NUR ---
Pharmacy TPN Dosing Note S: AZEB COOMBS is a 85 year old M Currently receiving Central Continuous TPN started 07/15/21 B:Pertinent PMH: NPO SINCE 07/12, PERFERATED BOWEL Height: 5 feet, 4 inches Weight: 75.4 kg Current diet: NPO LABS: Sodium: 143 Potassium: 4.3 Chloride: 112 Calcium: 7.5 Corrected Calcium: 9.90 Magnesium: 2.4 CO2: 23 SCr: 1.2 Glucose: 132 Albumin: 1.0 AST: 88 ALT: 93 TPN FORMULA: TPN TYPE: Central Continuous AMINO ACIDS: 75 gm DEXTROSE: 210 gm LIPIDS: 30 gm SODIUM CHLORIDE: 40 mEq SODIUM ACETATE: -- mEq SODIUM PHOSPHATE: -- mmol POTASSIUM CHLORIDE: -- mEq POTASSIUM ACETATE: 50 mEq POTASSIUM PHOSPHATE: 15 mmol MAGNESIUM: 4 mEq CALCIUM: -- mEq INSULIN: -- units MULTIPLE VITAMIN: 10 ml TRACE ELEMENTS: 1 mL ml(s) TPN PLAN: -Continue same Macros per commercial carpet installer recommendations -Phos and potassium continue to trend up to high end of normal level and Mag remains high end of normal as well. Sodium remains at 143. Nephrology note states patient needs free water. -BMP, Mag,Phos ordered for 5/6 morning. R: Continue TPN with following adjustments: decrease of potassium acetate and potassium phosphate and slight decrease in Mag. Will continue with decreased NaCl of 40 mEq at this time. Will monitor electrolytes, glucose, and tolerance to TPN. CLOVIS CARSON, [facility], 07/23/21 [id number]
--- NOTE | 2021-07-23 13:50 | PDOC ---
SURGICAL PROGRESS NOTE DATE: 07/23/21 TIME: 13:48 Subjective d/w son, agreeable to trach pt opens eyes during exam Vital Signs Vital Signs Date Time Temp Pulse Resp B/P (MAP) Pulse Ox O2 Delivery O2 Flow Rate FiO2 07/23/21 12:00 Mechanical Ventilator 07/23/21 11:57 94 07/23/21 06:00 78 28 134/67 07/23/21 04:00 99.0 99.0 I&O Intake and Output 07/23/21 07:00 Intake Total 1278.7 ml Output Total 1405 ml Balance -126.3 ml IV Total 1178.7 ml Other 100 ml Output Urine Total 1155 ml Drainage Total 250 ml # Bowel Movements 1 PATIENT HAS A PEDRO: Yes General: Cooperative, No acute distress Lungs: Other (vent) Abdomen: Soft, Other (tubes in place, mid line superficial dehis and drainage) Labs Laboratory Tests Test 07/22/21 05:40 07/22/21 09:15 07/22/21 11:55 07/23/21 05:35 Sodium Level 143 mmol/L (136-145) 143 mmol/L (136-145) Potassium Level 3.7 mmol/L (3.5-5.1) 4.3 mmol/L (3.5-5.1) Chloride Level 113 mmol/L (98-107) 112 mmol/L (98-107) Carbon Dioxide Level 22 mmol/L (21-32) 23 mmol/L (21-32) Anion Gap 8 (6-14) 8 (6-14) Blood Urea Nitrogen 47 mg/dL (8-26) 42 mg/dL (8-26) Creatinine 1.1 mg/dL (0.7-1.3) 1.2 mg/dL (0.7-1.3) Estimated GFR (Cockcroft-Gault) 63.6 57.5 Glucose Level 117 mg/dL (70-99) 132 mg/dL (70-99) Calcium Level 7.5 mg/dL (8.5-10.1) 7.5 mg/dL (8.5-10.1) Phosphorus Level 3.9 mg/dL (2.6-4.7) 4.7 mg/dL (2.6-4.7) Magnesium Level 2.4 mg/dL (1.8-2.4) 2.4 mg/dL (1.8-2.4) O2 Saturation 96 % (92-99) 97 % (92-99) Arterial Blood pH 7.55 (7.35-7.45) 7.46 (7.35-7.45) Arterial Blood pCO2 at Patient Temp 21 mmHg (35-46) 28 mmHg (35-46) Arterial Blood pO2 at Patient Temp 71 mmHg (65-108) 88 mmHg (65-108) Arterial Blood HCO3 18 mmol/L (21-28) 20 mmol/L (21-28) Arterial Blood Base Excess -3 mmol/L (-3-3) -3 mmol/L (-3-3) FiO2 40 cpap 40 t tube White Blood Count 16.5 x10^3/uL (4.0-11.0) Red Blood Count 3.43 x10^6/uL (4.30-5.70) Hemoglobin 9.9 g/dL (13.0-17.5) Hematocrit 30.0 % (39.0-53.0) Mean Corpuscular Volume 88 fL (79-100) Mean Corpuscular Hemoglobin 29 pg (25-35) Mean Corpuscular Hemoglobin Concent 33 g/dL (31-37) Red Cell Distribution Width 16.4 % (11.5-14.5) Platelet Count 449 x10^3/uL (140-400) Neutrophils (%) (Auto) 89 % (31-73) Lymphocytes (%) (Auto) 4 % (24-48) Monocytes (%) (Auto) 7 % (0-9) Eosinophils (%) (Auto) 0 % (0-3) Basophils (%) (Auto) 0 % (0-3) Neutrophils # (Auto) 14.6 x10^3/uL (1.8-7.7) Lymphocytes # (Auto) 0.6 x10^3/uL (1.0-4.8) Monocytes # (Auto) 1.2 x10^3/uL (0.0-1.1) Eosinophils # (Auto) 0.0 x10^3/uL (0.0-0.7) Basophils # (Auto) 0.1 x10^3/uL (0.0-0.2) BUN/Creatinine Ratio 35 (6-20) Total Bilirubin 1.0 mg/dL (0.2-1.0) Aspartate Amino Transf (AST/SGOT) 88 U/L (15-37) Alanine Aminotransferase (ALT/SGPT) 93 U/L (16-63) Alkaline Phosphatase 194 U/L (46-116) Total Protein 5.2 g/dL (6.4-8.2) Albumin 1.0 g/dL (3.4-5.0) Albumin/Globulin Ratio 0.2 (1.0-1.7) Test 07/23/21 08:45 O2 Saturation 97 % (92-99) Arterial Blood pH 7.45 (7.35-7.45) Arterial Blood pCO2 at Patient Temp 29 mmHg (35-46) Arterial Blood pO2 at Patient Temp 90 mmHg (65-108) Arterial Blood HCO3 20 mmol/L (21-28) Arterial Blood Base Excess -4 mmol/L (-3-3) FiO2 40 cpap Laboratory Tests Test 07/23/21 05:35 07/23/21 08:45 White Blood Count 16.5 x10^3/uL (4.0-11.0) Red Blood Count 3.43 x10^6/uL (4.30-5.70) Hemoglobin 9.9 g/dL (13.0-17.5) Hematocrit 30.0 % (39.0-53.0) Mean Corpuscular Volume 88 fL (79-100) Mean Corpuscular Hemoglobin 29 pg (25-35) Mean Corpuscular Hemoglobin Concent 33 g/dL (31-37) Red Cell Distribution Width 16.4 % (11.5-14.5) Platelet Count 449 x10^3/uL (140-400) Neutrophils (%) (Auto) 89 % (31-73) Lymphocytes (%) (Auto) 4 % (24-48) Monocytes (%) (Auto) 7 % (0-9) Eosinophils (%) (Auto) 0 % (0-3) Basophils (%) (Auto) 0 % (0-3) Neutrophils # (Auto) 14.6 x10^3/uL (1.8-7.7) Lymphocytes # (Auto) 0.6 x10^3/uL (1.0-4.8) Monocytes # (Auto) 1.2 x10^3/uL (0.0-1.1) Eosinophils # (Auto) 0.0 x10^3/uL (0.0-0.7) Basophils # (Auto) 0.1 x10^3/uL (0.0-0.2) Sodium Level 143 mmol/L (136-145) Potassium Level 4.3 mmol/L (3.5-5.1) Chloride Level 112 mmol/L (98-107) Carbon Dioxide Level 23 mmol/L (21-32) Anion Gap 8 (6-14) Blood Urea Nitrogen 42 mg/dL (8-26) Creatinine 1.2 mg/dL (0.7-1.3) Estimated GFR (Cockcroft-Gault) 57.5 BUN/Creatinine Ratio 35 (6-20) Glucose Level 132 mg/dL (70-99) Calcium Level 7.5 mg/dL (8.5-10.1) Phosphorus Level 4.7 mg/dL (2.6-4.7) Magnesium Level 2.4 mg/dL (1.8-2.4) Total Bilirubin 1.0 mg/dL (0.2-1.0) Aspartate Amino Transf (AST/SGOT) 88 U/L (15-37) Alanine Aminotransferase (ALT/SGPT) 93 U/L (16-63) Alkaline Phosphatase 194 U/L (46-116) Total Protein 5.2 g/dL (6.4-8.2) Albumin 1.0 g/dL (3.4-5.0) Albumin/Globulin Ratio 0.2 (1.0-1.7) O2 Saturation 97 % (92-99) Arterial Blood pH 7.45 (7.35-7.45) Arterial Blood pCO2 at Patient Temp 29 mmHg (35-46) Arterial Blood pO2 at Patient Temp 90 mmHg (65-108) Arterial Blood HCO3 20 mmol/L (21-28) Arterial Blood Base Excess -4 mmol/L (-3-3) FiO2 40 cpap Assessment/Plan trach tomorrow will have wound care see and provider wound assistance Justicifation of Admission Dx: Justifications for Admission: Justification of Admission Dx: Yes Sepsis: Hemodynamic Instability KOURTNEY SNIDER DAYTIME CAREGIVER July 23, 2021 13:50
[2021-07-23] MEDS: fentaNYL PF VIAL 100 MCG/2 ML VIAL IVP PRN (14:06)
[2021-07-23] MEDS: DAPTOmycin (GENERIC) IVPB 450 MG in IV NORMAL SALINE 50ML 50 ML IV SCH (20:00)
[2021-07-23] MEDS: ENOXAPARIN 40 MG/0.4 ML SYRINGE. SQ SCH (21:26)
[2021-07-23] MEDS: FAMOTIDINE 20 MG/2 ML VIAL IVP SCH (21:27)
[2021-07-23] MEDS ORDERED: DEXTROSE IV SCH (22:00)
[2021-07-23] MEDS ORDERED: TOTAL PARENTERAL NUTRITION IV SCH (22:00)
[2021-07-23] MEDS ORDERED: [UNRECOGNIZED DRUG - OTHER] IV SCH (22:00)
[2021-07-23] MEDS ORDERED: AMINO ACID IV SCH (22:00)
[2021-07-24] VITALS (26 sets, daily range): BP systolic 81–160; BP diastolic 40–72
--- NOTE | 2021-07-24 02:39 | PN ---
DATE: 07/23/2021 SUBJECTIVE: The patient is resting, slightly propped up in bed, in no apparent respiratory distress. He continued to be intubated and mechanically ventilated. He is on pressure support, maintaining his oxygen saturation at 97% on FiO2 of 40%. He is awake, alert, follows commands. PHYSICAL EXAMINATION: GENERAL: When I examined him, he was pale, but not jaundiced or cyanosed. No lymphadenopathy, no thyromegaly. No jugular venous distention. No limb edema. VITAL SIGNS: His heart rate was 78, blood pressure is 134/67, temperature was 99, respiratory rate was 28 and oxygen saturation was 96% on FiO2 of 40%. HEAD, EYES, EARS, NOSE, AND THROAT: Normocephalic, atraumatic. Has orotracheal and orogastric tube in place. NECK: Supple. HEART: Showed normal first and second heart sounds. No gallop or murmur. CHEST: Showed central trachea, equal bilateral chest expansion, air entry, vesicular breath sounds. I could not really appreciate any crepitation or rhonchi. ABDOMEN: Distended, soft, nontender. NEUROLOGIC: He is more awake, alert, open his eyes, tracks and follows command. His intake over the last 24 hours was 1240, output was 1840. LABORATORY DATA: As of this morning, his white cell count was 16.5, hemoglobin 9.9, hematocrit 30, MCV 88 and platelet count of 449,000 with normal manual differential. His chemistry showed a serum sodium 143, potassium 4.3, chloride 112, bicarbonate 23, anion gap of 8, BUN 42, creatinine 1.2. Estimated GFR was 57 mL per minute. His glucose 132, calcium was 7.5, phosphorus 4.7, magnesium 2.4. Total bilirubin is normal. AST, ALT, alkaline phosphatase are elevated, but trending down. His total protein was 5.2, albumin was 1. His chest x-ray showed the patient has moderate left side pleural effusion, bilateral pulmonary infiltrate, left worse than right compared to the prior study, there is improved aeration of the right lung. ASSESSMENT: 1. Perforated viscus status post exploratory laparotomy, reduction of the gastric volvulus and hiatal hernia repair and gastrostomy tube placement as well as duodenostomy tube placement. 2. Acute hypoxic respiratory failure for which he continues to be intubated and mechanically ventilated. He is off sedation for more than 6 days. He is maintaining his oxygen saturation at 97% on FiO2 of 40% on pressure support. He is currently on pressure support for the fourth day. 3. Hypotension, resolved. His Levophed was discontinued. He is now normotensive. 4. Acute kidney injury has improved. His most recent serum creatinine this morning is 1.2 mg/dL. 5. His white cell count has risen up to 19.8 for which he did culture. He is now on meropenem, daptomycin and linezolid. CT scan showed that he has what seemed to be an abscess in the right upper quadrant in front of the left hepatic lobe. 6. His liver enzymes were elevated, trending down. 7. He has severe protein-calorie malnutrition. Serum albumin is only 1 g/dL. 8. He has metastatic melanoma, for which he was seen by the oncologist, but no plans for any treatment for now as long as he is still in the mechanical ventilation and on antibiotic. 9. He has multiple preexisting conditions include: A. Hypertension. B. Hiatal hernia. C. Gastroesophageal reflux disease. D. Gastric ulcer. E. Chronic constipation. PLAN: To continue mechanical ventilation, wean as tolerated. Continue TPN. Continue IV antibiotic. Continue with DVT prophylaxis, GI prophylaxis. MIGEL/MANUEL DR: Marta TID: [id number]
[2021-07-24] MEDS: MEROPENEM 500 MG in IV NORMAL SALINE 50ML 50 ML IV SCH ×3 (05:48→22:11)
[2021-07-24 06:07] LABS: CALCIUM 7.4 mg/dL (8.5-10.1); CREATININE 1.1 mg/dL (0.7-1.3); GFR 63.6; MAGNESIUM 2.3 mg/dL (1.8-2.4); PHOSPHORUS 3.6 mg/dL (2.6-4.7); POTASSIUM 4.2 mmol/L (3.5-5.1)
[2021-07-24] MEDS: TPN PER PHARMACY MC PRN (08:58)
--- NOTE | 2021-07-24 09:09 | PDOC ---
DATE OF SERVICE DATE: 07/24/21 TIME: 09:08 SUBJECTIVE ROS Intubated, on vent. following commands .Stable OBJECTIVE Vital Signs Vital Signs Date Time Temp Pulse Resp B/P (MAP) Pulse Ox O2 Delivery O2 Flow Rate FiO2 07/24/21 08:03 100 Ventilator 07/24/21 08:00 70 26 107/49 07/24/21 07:00 99.1 99.1 I & 0 Intake and Output 07/24/21 07:00 Intake Total 2087 ml Output Total 1565 ml Balance 522 ml IV Total 2087 ml Output Urine Total 1220 ml Gastric Drainage Total 270 ml Drainage Total 75 ml # Bowel Movements 2 PHYSICAL EXAM Physical Exam GENERAL: orally intubated HEENT: Both pupils are round and reacting. orally intubated. NECK: Supple, no JVP, LUNGS: Clear. Decreased breath sounds. HEART: S1, S2 regular. No gallop or murmur. ABDOMEN: Multiple tubes in the post-surgical dressing EXTREMITIES: No edema, cyanosis. SKIN: Unremarkable. NEUROLOGIC: sedated and intubated. Carreno + DIAGNOSIS/ASSESSMENT Assessment & Plan SHELDON-- ATN/ Hypotensive/Bowel perf . UA unremarkable , CT scan No e/o BALLARD/Hydronephrosis , Resolved E-Lytes stable . Supportive care,maintain fluid balance, avoid Nephrotoxins SHELDON in 2018, resolved. No Interval labs available Anemia- Hgb trending down HyperNatremia- mild- Needs free water, adjust Na in TPN Renal Calculus 5 mm nonobstructing calculus is seen involving the lower pole of the right kidney. Perforated viscus, status post exploratory laparotomy, reduction of gastric volvulus, hiatal hernia repair, gastrostomy tube placement and duodenoscopy with tube placement done. 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 CT chest/Abdomen Redemonstration of numerous metastatic disease in the lungs and throughout the abdomen. Acute Respiratory failure, requiring ventilatory support. Plan for Tracheostomy. History of prostate cancer. HypoPhos- Normal ; Adjust in TPN as indicated Nutrition- On TPN Will Sign off COMMENT/RELEVANT DATA Meds Current Medications Medications (Trade) Dose Ordered Sig/Armin Start Time Stop Time Status Last Admin Dose Admin Albumin Human 500 ml @ 125 mls/hr 1X ONCE 07/12/21 12:45 07/12/21 16:44 DC Cefoxitin Sodium (Mefoxin) 1 gm Q6H 07/12/21 14:00 07/13/21 02:01 DC 07/13/21 01:47 1 GM Ceftriaxone Sodium (Rocephin) 2 gm Q24H 07/12/21 07:00 07/13/21 09:46 DC 07/13/21 06:30 2 GM Daptomycin 450 mg/ Sodium Chloride 50 ml @ 100 mls/hr Q24H 07/18/21 20:00 07/23/21 20:00 100 MLS/HR Dexamethasone Sodium Phosphate (Decadron) 4 mg STK-MED ONCE 07/12/21 07:43 07/12/21 07:44 DC Digoxin (Lanoxin) 500 mcg 1X ONCE 07/14/21 04:30 07/14/21 04:31 DC 07/14/21 04:40 500 MCG Enoxaparin Sodium (Lovenox 30mg Syringe) 30 mg Q24H 07/12/21 21:00 07/16/21 09:07 DC 07/15/21 21:04 30 MG Enoxaparin Sodium (Lovenox 40mg Syringe) 40 mg Q24H 07/16/21 21:00 07/24/21 06:59 DC 07/23/21 21:26 40 MG Ephedrine Sulfate (ePHEDrine PF IN SALINE SYRINGE) 50 mg STK-MED ONCE 07/12/21 10:27 07/12/21 10:27 DC Etomidate (Amidate) 20 mg STK-MED ONCE 07/12/21 08:30 07/12/21 08:30 DC Famotidine (Pepcid Vial) 20 mg QHS 07/12/21 21:00 07/23/21 21:27 20 MG Fentanyl Citrate (Fentanyl 2ml Vial) 25 mcg PRN Q1HR PRN 07/16/21 19:30 07/23/21 14:06 25 MCG Furosemide (Lasix) 40 mg 1X ONCE 07/17/21 11:45 07/17/21 11:46 DC 07/17/21 12:28 40 MG Glycerin/ Hypromellose/ Polyethylene (Artificial Tears) 1 drop PRN Q1HR PRN 07/12/21 12:45 Glycopyrrolate (Robinul) 1 mg STK-MED ONCE 07/12/21 07:45 07/12/21 07:45 DC Hydromorphone HCl (Dilaudid) 0.5 mg PRN Q10MIN PRN 07/12/21 08:00 07/13/21 07:59 DC Info (Tpn Per Pharmacy) 1 each PRN DAILY PRN 07/15/21 10:30 07/23/21 12:14 1 EACH Labetalol HCl (Normodyne Iv Push) 10 mg PRN Q4HRS PRN 07/17/21 09:15 Linezolid/Dextrose 300 ml @ 300 mls/hr Q12HR 07/19/21 14:00 07/23/21 21:23 300 MLS/HR Magnesium Sulfate 50 ml @ 25 mls/hr 1X ONCE 07/14/21 12:30 07/14/21 14:29 DC 07/14/21 15:22 25 MLS/HR Meropenem 500 mg/ Sodium Chloride 50 ml @ 100 mls/hr Q8HRS 07/18/21 22:00 07/24/21 05:48 100 MLS/HR Metronidazole 100 ml @ 100 mls/hr Q8HRS 07/12/21 14:00 07/13/21 09:46 DC 07/13/21 06:15 100 MLS/HR Midazolam HCl 100 ml @ 1 mls/hr CONT PRN 07/12/21 12:45 07/16/21 19:27 DC 07/12/21 16:55 1 MLS/HR Midazolam HCl (Versed) 2 mg STK-MED ONCE 07/12/21 07:44 07/12/21 07:44 DC Morphine Sulfate (Morphine Sulfate) 1 mg PRN Q1HR PRN 07/12/21 12:15 07/12/21 13:51 DC Naloxone HCl (Narcan) 0.4 mg PRN Q2MIN PRN 07/12/21 12:15 Neostigmine Jasper (Neostigmine Methylsulfate) 5 mg STK-MED ONCE 07/12/21 07:44 07/12/21 07:44 DC Norepinephrine Bitartrate 32 mg/ Dextrose 250 ml @ 3.192 mls/ hr CONT PRN 07/15/21 03:30 07/15/21 04:15 15.961 MLS/HR Norepinephrine Bitartrate 8 mg/ Dextrose 258 ml @ 11.204 mls/ hr CONT PRN 07/12/21 13:45 07/15/21 03:14 DC 07/14/21 23:22 56.018 MLS/HR Ondansetron HCl (Zofran) 4 mg PRN Q6HRS PRN 07/12/21 12:15 Phenylephrine HCl (Lionel-Synephrine Inj) 10 mg STK-MED ONCE 07/12/21 11:54 07/12/21 11:55 DC Phenylephrine HCl (PHENYLEPHRINE in 0.9% NACL PF) 1 mg STK-MED ONCE 07/12/21 10:27 07/12/21 10:27 DC Piperacillin Sod/ Tazobactam Sod 2.25 gm/Sodium Chloride 50 ml @ 100 mls/hr Q6HRS 07/13/21 12:00 07/18/21 18:02 DC 07/18/21 17:10 100 MLS/HR Potassium Phosphate 15 mmol/ Sodium Chloride 105 ml @ 52.5 mls/hr 1X ONCE 07/17/21 12:00 07/17/21 13:59 DC 07/17/21 12:32 52.5 MLS/HR Prochlorperazine Edisylate (Compazine) 5 mg PACU PRN PRN 07/12/21 08:00 07/13/21 07:59 DC Propofol (Diprivan) 1,000 mg STK-MED ONCE 07/12/21 13:00 07/13/21 12:22 DC Ringer's Solution 1,000 ml @ 100 mls/hr Q10H 07/12/21 12:15 07/13/21 19:33 DC 07/13/21 10:39 100 MLS/HR Rocuronium Jasper (Zemuron) 100 mg STK-MED ONCE 07/12/21 09:34 07/12/21 09:34 DC Sevoflurane (Ultane) 60 ml STK-MED ONCE 07/12/21 21:15 07/12/21 21:15 DC Sodium Bicarbonate 150 meq/Dextrose 1,150 ml @ 75 mls/hr [id number] 07/12/21 14:30 07/13/21 19:34 DC 07/13/21 05:37 75 MLS/HR Sodium Acetate 70 meq/Potassium Chloride 50 meq/ Potassium Phosphate 22 mmol/ Magnesium Sulfate 8 meq/ Multivitamins 10 ml/Zinc/Copper/ Manganese/ Selenium 1 ml/ Total Parenteral Nutrition/Amino Acids/Dextrose/ Fat Emulsion Intravenous 1,512 ml @ 63 mls/hr TPN CONT 07/18/21 22:00 07/19/21 21:59 DC 07/18/21 21:44 63 MLS/HR Sodium Bicarbonate (Sodium Bicarb Adult 8.4% Syr) 50 meq STK-MED ONCE 07/12/21 21:15 07/12/21 21:15 DC Sodium Chloride (Normal Saline Flush) 3 ml QSHIFT PRN 07/12/21 12:15 Sodium Chloride 40 meq/Potassium Acetate 50 meq/ Potassium Phosphate 15 mmol/ Magnesium Sulfate 4 meq/ Multivitamins 10 ml/Zinc/Copper/ Manganese/ Selenium 1 ml/ Total Parenteral Nutrition/Amino Acids/Dextrose/ Fat Emulsion Intravenous 1,680 ml @ 70 mls/hr TPN CONT 07/24/21 22:00 07/25/21 21:59 Sodium Chloride 40 meq/Potassium Acetate 50 meq/ Potassium Phosphate 22 mmol/ Magnesium Sulfate 6 meq/ Multivitamins 10 ml/Zinc/Copper/ Manganese/ Selenium 1 ml/ Total Parenteral Nutrition/Amino Acids/Dextrose/ Fat Emulsion Intravenous 1,680 ml @ 70 mls/hr TPN CONT 07/20/21 22:00 07/21/21 21:59 DC 07/20/21 22:14 70 MLS/HR Sodium Chloride 40 meq/Potassium Acetate 50 meq/ Potassium Phosphate 22 mmol/ Magnesium Sulfate 8 meq/ Multivitamins 10 ml/Zinc/Copper/ Manganese/ Selenium 1 ml/ Total Parenteral Nutrition/Amino Acids/Dextrose/ Fat Emulsion Intravenous 1,680 ml @ 70 mls/hr TPN CONT 07/19/21 22:00 07/20/21 21:59 DC 07/19/21 21:40 70 MLS/HR Sodium Chloride 40 meq/Potassium Acetate 50 meq/ Potassium Phosphate 26 mmol/ Magnesium Sulfate 6 meq/ Multivitamins 10 ml/Zinc/Copper/ Manganese/ Selenium 1 ml/ Total Parenteral Nutrition/Amino Acids/Dextrose/ Fat Emulsion Intravenous 1,680 ml @ 70 mls/hr TPN CONT 07/21/21 22:00 07/21/21 08:54 DC Sodium Chloride 40 meq/Potassium Acetate 60 meq/ Potassium Phosphate 30 mmol/ Magnesium Sulfate 6 meq/ Multivitamins 10 ml/Zinc/Copper/ Manganese/ Selenium 1 ml/ Total Parenteral Nutrition/Amino Acids/Dextrose/ Fat Emulsion Intravenous 1,680 ml @ 70 mls/hr TPN CONT 07/22/21 22:00 07/23/21 21:59 DC 07/22/21 23:29 70 MLS/HR Sodium Chloride 70 meq/Potassium Chloride 50 meq/ Potassium Phosphate 20 mmol/ Magnesium Sulfate 10 meq/ Multivitamins 10 ml/Zinc/Copper/ Manganese/ Selenium 1 ml/ Total Parenteral Nutrition/Amino Acids/Dextrose/ Fat Emulsion Intravenous 1,512 ml @ 63 mls/hr TPN CONT 07/16/21 22:00 07/17/21 21:59 DC 07/16/21 21:38 63 MLS/HR Sodium Chloride 70 meq/Potassium Chloride 50 meq/ Potassium Phosphate 25 mmol/ Magnesium Sulfate 10 meq/ Multivitamins 10 ml/Zinc/Copper/ Manganese/ Selenium 1 ml/ Total Parenteral Nutrition/Amino Acids/Dextrose/ Fat Emulsion Intravenous 1,512 ml @ 63 mls/hr TPN CONT 07/17/21 22:00 07/18/21 21:59 DC 07/17/21 20:22 63 MLS/HR Sodium Chloride 90 meq/Potassium Chloride 50 meq/ Potassium Phosphate 13.6 mmol/Magnesium Sulfate 10 meq/ Multivitamins 10 ml/Zinc/Copper/ Manganese/ Selenium 1 ml/ Total Parenteral Nutrition/Amino Acids/Dextrose/ Fat Emulsion Intravenous 1,512 ml @ 63 mls/hr TPN CONT 07/15/21 22:00 07/16/21 21:59 DC 07/15/21 22:05 63 MLS/HR Succinylcholine Chloride (Anectine) 200 mg STK-MED ONCE 07/12/21 07:44 07/12/21 07:44 DC Lab Laboratory Tests Test 07/24/21 05:35 Sodium Level 145 mmol/L (136-145) Potassium Level 4.2 mmol/L (3.5-5.1) Chloride Level 113 mmol/L (98-107) Carbon Dioxide Level 22 mmol/L (21-32) Anion Gap 10 (6-14) Blood Urea Nitrogen 42 mg/dL (8-26) Creatinine 1.1 mg/dL (0.7-1.3) Estimated GFR (Cockcroft-Gault) 63.6 Glucose Level 107 mg/dL (70-99) Calcium Level 7.4 mg/dL (8.5-10.1) Phosphorus Level 3.6 mg/dL (2.6-4.7) Magnesium Level 2.3 mg/dL (1.8-2.4) Results All relevant outside records, renal labs, imaging studies, telemetry/EKG's were reviewed. Justicifation of Admission Dx: Justifications for Admission: Justification of Admission Dx: Yes Sepsis: Hemodynamic Instability JENNIE MOODY MD July 24, 2021 09:09
--- NOTE | 2021-07-24 09:14 | NUR ---
Pharmacy TPN Dosing Note S: AZEB COOMBS is a 85 year old M Currently receiving Central Continuous TPN started 07/15/21 B:Pertinent PMH: NPO SINCE 07/12, PERFERATED BOWEL Height: 5 feet, 4 inches Weight: 76.3 kg Current diet: NPO LABS: Sodium: 145 Potassium: 4.2 Chloride: 113 Calcium: 7.4 Corrected Calcium: 9.80 Magnesium: 2.3 CO2: 22 SCr: 1.1 Glucose: 107 Albumin: 1.0 AST: 88 ALT: 93 TPN FORMULA: TPN TYPE: Central Continuous AMINO ACIDS: 75 gm DEXTROSE: 210 gm LIPIDS: 30 gm SODIUM CHLORIDE: 40 mEq POTASSIUM ACETATE: 50 mEq POTASSIUM PHOSPHATE: 15 mmol MAGNESIUM: 4 mEq MULTIPLE VITAMIN: 10 ml TRACE ELEMENTS: 1 mL ml(s) TPN PLAN: Continue same. R: Continue TPN Will monitor electrolytes, glucose, and tolerance to TPN. Marisa Morris RPH, 07/24/21 0914
--- NOTE | 2021-07-24 09:33 | PDOC ---
PROGRESS NOTES Date of Service DATE: 07/24/21 TIME: 09:31 Assessment Metabolic encephalopathy, may have had some anoxia? Better Perforated viscus, status-post exploratory laparotomy, gastrotomy tube pl acement, hernia repair surgery, respiratory failure, hypotension requiring vasopressors, sepsis, acute kidney injury, abnormal liver function tests, history of prostrate cancer anoxic encephalopathy. History of hypertension, hiatal hernia, gastroesophageal reflux disease, gastric ulcer, constipation Prostate cancer and melanoma, metastatic Plan Holding off on additional studies given his continued improvement Note plans for tracheostomy Subjective None Objective Vital Signs Date Time Temp Pulse Resp B/P (MAP) Pulse Ox O2 Delivery O2 Flow Rate FiO2 07/24/21 08:03 100 Ventilator 07/24/21 08:00 70 26 107/49 07/24/21 07:00 99.1 99.1 Intake and Output 07/24/21 07:00 Intake Total 2087 ml Output Total 1565 ml Balance 522 ml IV Total 2087 ml Output Urine Total 1220 ml Gastric Drainage Total 270 ml Drainage Total 75 ml # Bowel Movements 2 PHYSICAL EXAM Sleepy, moves to command, still on ventilator PERRL. EOMI. CN: no focal findings. Muscle tone: normal. Muscle strength: 1/5 DTR: 0+ Plantar reflex: Silent Gait: not examined in bed. Sensory exam: no abnormal findings. No cerebellar signs elicited. Review of Relevant I have reviewed the following items joanne (where applicable) has been applied. Labs Laboratory Tests Test 07/22/21 11:55 07/23/21 05:35 07/23/21 08:45 07/24/21 05:35 O2 Saturation 97 % (92-99) 97 % (92-99) Arterial Blood pH 7.46 (7.35-7.45) 7.45 (7.35-7.45) Arterial Blood pCO2 at Patient Temp 28 mmHg (35-46) 29 mmHg (35-46) Arterial Blood pO2 at Patient Temp 88 mmHg (65-108) 90 mmHg (65-108) Arterial Blood HCO3 20 mmol/L (21-28) 20 mmol/L (21-28) Arterial Blood Base Excess -3 mmol/L (-3-3) -4 mmol/L (-3-3) FiO2 40 t tube 40 cpap White Blood Count 16.5 x10^3/uL (4.0-11.0) Red Blood Count 3.43 x10^6/uL (4.30-5.70) Hemoglobin 9.9 g/dL (13.0-17.5) Hematocrit 30.0 % (39.0-53.0) Mean Corpuscular Volume 88 fL (79-100) Mean Corpuscular Hemoglobin 29 pg (25-35) Mean Corpuscular Hemoglobin Concent 33 g/dL (31-37) Red Cell Distribution Width 16.4 % (11.5-14.5) Platelet Count 449 x10^3/uL (140-400) Neutrophils (%) (Auto) 89 % (31-73) Lymphocytes (%) (Auto) 4 % (24-48) Monocytes (%) (Auto) 7 % (0-9) Eosinophils (%) (Auto) 0 % (0-3) Basophils (%) (Auto) 0 % (0-3) Neutrophils # (Auto) 14.6 x10^3/uL (1.8-7.7) Lymphocytes # (Auto) 0.6 x10^3/uL (1.0-4.8) Monocytes # (Auto) 1.2 x10^3/uL (0.0-1.1) Eosinophils # (Auto) 0.0 x10^3/uL (0.0-0.7) Basophils # (Auto) 0.1 x10^3/uL (0.0-0.2) Sodium Level 143 mmol/L (136-145) 145 mmol/L (136-145) Potassium Level 4.3 mmol/L (3.5-5.1) 4.2 mmol/L (3.5-5.1) Chloride Level 112 mmol/L (98-107) 113 mmol/L (98-107) Carbon Dioxide Level 23 mmol/L (21-32) 22 mmol/L (21-32) Anion Gap 8 (6-14) 10 (6-14) Blood Urea Nitrogen 42 mg/dL (8-26) 42 mg/dL (8-26) Creatinine 1.2 mg/dL (0.7-1.3) 1.1 mg/dL (0.7-1.3) Estimated GFR (Cockcroft-Gault) 57.5 63.6 BUN/Creatinine Ratio 35 (6-20) Glucose Level 132 mg/dL (70-99) 107 mg/dL (70-99) Calcium Level 7.5 mg/dL (8.5-10.1) 7.4 mg/dL (8.5-10.1) Phosphorus Level 4.7 mg/dL (2.6-4.7) 3.6 mg/dL (2.6-4.7) Magnesium Level 2.4 mg/dL (1.8-2.4) 2.3 mg/dL (1.8-2.4) Total Bilirubin 1.0 mg/dL (0.2-1.0) Aspartate Amino Transf (AST/SGOT) 88 U/L (15-37) Alanine Aminotransferase (ALT/SGPT) 93 U/L (16-63) Alkaline Phosphatase 194 U/L (46-116) Total Protein 5.2 g/dL (6.4-8.2) Albumin 1.0 g/dL (3.4-5.0) Albumin/Globulin Ratio 0.2 (1.0-1.7) Laboratory Tests Test 07/24/21 05:35 Sodium Level 145 mmol/L (136-145) Potassium Level 4.2 mmol/L (3.5-5.1) Chloride Level 113 mmol/L (98-107) Carbon Dioxide Level 22 mmol/L (21-32) Anion Gap 10 (6-14) Blood Urea Nitrogen 42 mg/dL (8-26) Creatinine 1.1 mg/dL (0.7-1.3) Estimated GFR (Cockcroft-Gault) 63.6 Glucose Level 107 mg/dL (70-99) Calcium Level 7.4 mg/dL (8.5-10.1) Phosphorus Level 3.6 mg/dL (2.6-4.7) Magnesium Level 2.3 mg/dL (1.8-2.4) Microbiology 07/19/21 Respiratory Culture Gram Stain - Final, Complete 07/19/21 Respiratory Culture - Final, Complete Elda Albicans Elda Glabrata 07/18/21 Blood Culture - Final, Complete NO GROWTH AFTER 5 DAYS Medications Current Medications Ceftriaxone Sodium (Rocephin) 2 gm Q24H IVP Last administered on 07/13/21at 06:30; Start 07/12/21 at 07:00; Stop 07/13/21 at 09:46; Status DC Metronidazole 100 ml @ 100 mls/hr Q8HRS IV Last administered on 07/13/21at 06:15; Start 07/12/21 at 14:00; Stop 07/13/21 at 09:46; Status DC Morphine Sulfate (Morphine Sulfate) 4 mg PRN Q4HRS PRN IVP SEVERE PAIN 7-10 Last administered on 07/12/21at 06:59; Start 07/12/21 at 06:15; Stop 07/12/21 at 13:52; Status DC Ondansetron HCl (Zofran) 4 mg PRN Q4HRS PRN IVP NAUSEA/VOMITING 1ST CHOICE Last administered on 07/12/21at 07:02; Start 07/12/21 at 06:15; Stop 07/12/21 at 13:03; Status DC Sodium Chloride 1,000 ml @ 150 mls/hr Q6H40M IV Last administered on 07/16/21at 04:36; Start 07/12/21 at 06:15; Stop 07/16/21 at 10:01; Status DC Piperacillin Sod/ Tazobactam Sod 2.25 gm/Sodium Chloride 50 ml @ 100 mls/hr Q8HRS IV Last administered on 07/13/21at 05:37; Start 07/12/21 at 14:00; Stop 07/13/21 at 11:36; Status DC Propofol (Diprivan) 200 mg STK-MED ONCE IV ; Start 07/12/21 at 07:43; Stop 07/12/21 at 07:44; Status DC Ondansetron HCl (Zofran) 4 mg STK-MED ONCE .ROUTE ; Start 07/12/21 at 07:43; Stop 07/12/21 at 07:44; Status DC Dexamethasone Sodium Phosphate (Decadron) 4 mg STK-MED ONCE .ROUTE ; Start 07/12/21 at 07:43; Stop 07/12/21 at 07:44; Status DC Succinylcholine Chloride (Anectine) 200 mg STK-MED ONCE .ROUTE ; Start 07/12/21 at 07:44; Stop 07/12/21 at 07:44; Status DC Neostigmine Blue Eye (Neostigmine Methylsulfate) 5 mg STK-MED ONCE .ROUTE ; Start 07/12/21 at 07:44; Stop 07/12/21 at 07:44; Status DC Rocuronium Blue Eye (Zemuron) 50 mg STK-MED ONCE .ROUTE ; Start 07/12/21 at 07:44; Stop 07/12/21 at 07:44; Status DC Fentanyl Citrate (Fentanyl 2ml Vial) 100 mcg STK-MED ONCE .ROUTE ; Start 07/12/21 at 07:44; Stop 07/12/21 at 07:44; Status DC Midazolam HCl (Versed) 2 mg STK-MED ONCE .ROUTE ; Start 07/12/21 at 07:44; Stop 07/12/21 at 07:44; Status DC Glycopyrrolate (Robinul) 1 mg STK-MED ONCE .ROUTE ; Start 07/12/21 at 07:45; Stop 07/12/21 at 07:45; Status DC Fentanyl Citrate (Fentanyl 2ml Vial) 25 mcg PRN Q5MIN PRN IVP MILD PAIN 1-3; Start 07/12/21 at 08:00; Stop 07/13/21 at 07:59; Status DC Fentanyl Citrate (Fentanyl 2ml Vial) 50 mcg PRN Q5MIN PRN IVP MODERATE PAIN 4- 6; Start 07/12/21 at 08:00; Stop 07/13/21 at 07:59; Status DC Morphine Sulfate (Morphine Sulfate) 1 mg PRN Q10MIN PRN IVP SEVERE PAIN 7-10; Start 07/12/21 at 08:00; Stop 07/13/21 at 07:59; Status DC Ringer's Solution 1,000 ml @ 30 mls/hr Q24H IV ; Start 07/12/21 at 08:00; Stop 07/12/21 at 19:59; Status DC Hydromorphone HCl (Dilaudid) 0.5 mg PRN Q10MIN PRN IVP SEVERE PAIN 7-10, 2nd CHOICE; Start 07/12/21 at 08:00; Stop 07/13/21 at 07:59; Status DC Prochlorperazine Edisylate (Compazine) 5 mg PACU PRN PRN IVP NAUSEA, MRX1; Start 07/12/21 at 08:00; Stop 07/13/21 at 07:59; Status DC Albumin Human 500 ml @ 125 mls/hr 1X ONCE IV Last administered on 07/12/21at 08:17; Start 07/12/21 at 08:15; Stop 07/12/21 at 12:14; Status DC Etomidate (Amidate) 20 mg STK-MED ONCE IV ; Start 07/12/21 at 08:30; Stop 07/12/21 at 08:30; Status DC Rocuronium Blue Eye (Zemuron) 100 mg STK-MED ONCE .ROUTE ; Start 07/12/21 at 09:34; Stop 07/12/21 at 09:34; Status DC Phenylephrine HCl (PHENYLEPHRINE in 0.9% NACL PF) 1 mg STK-MED ONCE IV ; Start 07/12/21 at 10:27; Stop 07/12/21 at 10:27; Status DC Phenylephrine HCl (Lionel-Synephrine Inj) 10 mg STK-MED ONCE .ROUTE ; Start 07/12/21 at 10:27; Stop 07/12/21 at 10:27; Status DC Ephedrine Sulfate (ePHEDrine PF IN SALINE SYRINGE) 50 mg STK-MED ONCE IV ; Start 07/12/21 at 10:27; Stop 07/12/21 at 10:27; Status DC Albumin Human 500 ml @ As Directed STK-MED ONCE IV ; Start 07/12/21 at 11:15; Stop 07/12/21 at 11:16; Status DC Albumin Human 500 ml @ 500 mls/hr 1X ONCE IV Last administered on 07/12/21at 13:40; Start 07/12/21 at 11:30; Stop 07/12/21 at 12:29; Status DC Phenylephrine HCl (Lionel-Synephrine Inj) 10 mg STK-MED ONCE .ROUTE ; Start 07/12/21 at 11:54; Stop 07/12/21 at 11:55; Status DC Cefoxitin Sodium (Mefoxin) 1 gm Q6H IVP Last administered on 07/13/21at 01:47; Start 07/12/21 at 14:00; Stop 07/13/21 at 02:01; Status DC Famotidine (Pepcid Vial) 20 mg QHS IVP Last administered on 07/23/21at 21:27; Start 07/12/21 at 21:00 Enoxaparin Sodium (Lovenox 30mg Syringe) 30 mg Q24H SQ Last administered on 07/15/21at 21:04; Start 07/12/21 at 21:00; Stop 07/16/21 at 09:07; Status DC Sodium Chloride (Normal Saline Flush) 3 ml QSHIFT PRN IV AFTER MEDS AND BLOOD DRAWS; Start 07/12/21 at 12:15 Ringer's Solution 1,000 ml @ 100 mls/hr Q10H IV Last administered on 07/13/21at 10:39; Start 07/12/21 at 12:15; Stop 07/13/21 at 19:33; Status DC Naloxone HCl (Narcan) 0.4 mg PRN Q2MIN PRN IV SEE INSTRUCTIONS; Start 07/12/21 at 12:15 Sodium Chloride 1,000 ml @ 25 mls/hr Q24H IV ; Start 07/12/21 at 12:15; Stop 07/13/21 at 19:33; Status DC Morphine Sulfate (Morphine Sulfate) 1 mg PRN Q1HR PRN IV MODERATE PAIN; Start 07/12/21 at 12:15; Stop 07/12/21 at 13:51; Status DC Ondansetron HCl (Zofran) 4 mg PRN Q6HRS PRN IVP NAUESA, 1ST CHOICE; Start 07/12/21 at 12:15 Midazolam HCl 100 ml @ 1 mls/hr CONT PRN IV SEE PROTOCOL Last administered on 07/12/21at 16:55; Start 07/12/21 at 12:45; Stop 07/16/21 at 19:27; Status DC Propofol 100 ml @ 1.74 mls/hr CONT PRN IV PER PROTOCOL; Start 07/12/21 at 12:45; Stop 07/16/21 at 19:27; Status DC Glycerin/ Hypromellose/ Polyethylene (Artificial Tears) 1 drop PRN Q1HR PRN OU DRY EYE; Start 07/12/21 at 12:45 Albumin Human 500 ml @ 125 mls/hr 1X ONCE IV ; Start 07/12/21 at 12:45; Stop 07/12/21 at 16:44; Status DC Fentanyl Citrate 30 ml @ 0 mls/hr CONT PRN IV SEE PROTOCOL Last administered on 07/12/21at 23:40; Start 07/12/21 at 13:15; Stop 07/13/21 at 10:16; Status DC Sodium Bicarbonate (Sodium Bicarb Adult 8.4% Syr) 50 meq STK-MED ONCE .ROUTE ; Start 07/12/21 at 13:28; Stop 07/12/21 at 13:28; Status DC Sodium Bicarbonate (Sodium Bicarb Adult 8.4% Syr) 50 meq 1X ONCE IV Last administered on 07/12/21at 13:40; Start 07/12/21 at 13:45; Stop 07/12/21 at 13:46; Status DC Sodium Bicarbonate 150 meq/Dextrose 1,150 ml @ 75 mls/hr [id number] IV Last administered on 07/13/21at 05:37; Start 07/12/21 at 14:30; Stop 07/13/21 at 19:34; Status DC Norepinephrine Bitartrate 8 mg/ Dextrose 258 ml @ 11.204 mls/ hr CONT PRN IV PER PROTOCOL Last administered on 07/14/21at 23:22; Start 07/12/21 at 13:45; Stop 07/15/21 at 03:14; Status DC Fentanyl Citrate (Fentanyl 2ml Vial) 50 mcg 1X ONCE IVP ; Start 07/12/21 at 14:15; Stop 07/12/21 at 14:16; Status DC Sodium Bicarbonate (Sodium Bicarb Adult 8.4% Syr) 50 meq STK-MED ONCE .ROUTE ; Start 07/12/21 at 21:15; Stop 07/12/21 at 21:15; Status DC Sevoflurane (Ultane) 60 ml STK-MED ONCE IH ; Start 07/12/21 at 21:15; Stop 07/12/21 at 21:15; Status DC Digoxin (Lanoxin) 500 mcg 1X ONCE IV Last administered on 07/13/21at 03:22; Start 07/13/21 at 03:30; Stop 07/13/21 at 03:31; Status DC Fentanyl Citrate 55 ml @ 1 mls/hr CONT PRN IV SEE PROTOCOL Last administered on 07/15/21at 06:00; Start 07/13/21 at 10:30; Stop 07/16/21 at 19:27; Status DC Piperacillin Sod/ Tazobactam Sod 2.25 gm/Sodium Chloride 50 ml @ 100 mls/hr Q6HRS IV Last administered on 07/18/21at 17:10; Start 07/13/21 at 12:00; Stop 07/18/21 at 18:02; Status DC Propofol (Diprivan) 1,000 mg STK-MED ONCE IV ; Start 07/12/21 at 13:00; Stop 07/13/21 at 12:22; Status DC Digoxin (Lanoxin) 500 mcg 1X ONCE IV Last administered on 07/14/21at 04:40; Start 07/14/21 at 04:30; Stop 07/14/21 at 04:31; Status DC Magnesium Sulfate 50 ml @ 25 mls/hr 1X ONCE IV Last administered on 07/14/21at 15:22; Start 07/14/21 at 12:30; Stop 07/14/21 at 14:29; Status DC Sodium Chloride 1,000 ml @ 1,000 mls/hr 1X ONCE IV Last administered on 07/14/21at 12:15; Start 07/14/21 at 12:30; Stop 07/14/21 at 13:29; Status DC Sodium Chloride 1,000 ml @ 1,000 mls/hr 1X ONCE IV Last administered on 07/14/21at 15:42; Start 07/14/21 at 15:30; Stop 07/14/21 at 16:29; Status DC Sodium Chloride 500 ml @ 500 mls/hr 1X ONCE IV Last administered on 07/14/21at 12:15; Start 07/14/21 at 15:30; Stop 07/14/21 at 16:29; Status DC Norepinephrine Bitartrate 32 mg/ Dextrose 250 ml @ 3.192 mls/ hr CONT PRN IV SEE I/O RECORD Last administered on 07/15/21at 04:15; Start 07/15/21 at 03:30 Furosemide (Lasix) 20 mg 1X ONCE IVP Last administered on 07/15/21at 18:29; Start 07/15/21 at 10:00; Stop 07/15/21 at 10:01; Status DC Info (Tpn Per Pharmacy) 1 each PRN DAILY PRN MC SEE COMMENTS Last administered on 07/24/21at 08:58; Start 07/15/21 at 10:30 Sodium Chloride 90 meq/Potassium Chloride 50 meq/ Potassium Phosphate 13.6 mmol/Magnesium Sulfate 10 meq/ Multivitamins 10 ml/Zinc/Copper/ Manganese/ Selenium 1 ml/ Total Parenteral Nutrition/Amino Acids/Dextrose/ Fat Emulsion Intravenous 1,512 ml @ 63 mls/hr TPN CONT IV Last administered on 07/15/21at 22:05; Start 07/15/21 at 22:00; Stop 07/16/21 at 21:59; Status DC Furosemide (Lasix) 20 mg 1X ONCE IVP ; Start 07/15/21 at 18:30; Stop 07/15/21 at 18:31; Status DC Enoxaparin Sodium (Lovenox 40mg Syringe) 40 mg Q24H SQ Last administered on 07/23/21at 21:26; Start 07/16/21 at 21:00; Stop 07/24/21 at 06:59; Status DC Sodium Chloride 70 meq/Potassium Chloride 50 meq/ Potassium Phosphate 20 mmol/ Magnesium Sulfate 10 meq/ Multivitamins 10 ml/Zinc/Copper/ Manganese/ Selenium 1 ml/ Total Parenteral Nutrition/Amino Acids/Dextrose/ Fat Emulsion Intravenous 1,512 ml @ 63 mls/hr TPN CONT IV ; Start 07/16/21 at 22:00; Stop 07/16/21 at 13:33; Status DC Sodium Chloride 70 meq/Potassium Chloride 50 meq/ Potassium Phosphate 20 mmol/ Magnesium Sulfate 10 meq/ Multivitamins 10 ml/Zinc/Copper/ Manganese/ Selenium 1 ml/ Total Parenteral Nutrition/Amino Acids/Dextrose/ Fat Emulsion Intravenous 1,482 ml @ 61.75 mls/ hr TPN CONT IV ; Start 07/16/21 at 22:00; Stop 07/16/21 at 14:03; Status DC Sodium Chloride 70 meq/Potassium Chloride 50 meq/ Potassium Phosphate 20 mmol/ Magnesium Sulfate 10 meq/ Multivitamins 10 ml/Zinc/Copper/ Manganese/ Selenium 1 ml/ Total Parenteral Nutrition/Amino Acids/Dextrose/ Fat Emulsion Intravenous 1,512 ml @ 63 mls/hr TPN CONT IV Last administered on 07/16/21at 21:38; Start 07/16/21 at 22:00; Stop 07/17/21 at 21:59; Status DC Fentanyl Citrate (Fentanyl 2ml Vial) 25 mcg PRN Q1HR PRN IVP PAIN Last administered on 07/23/21at 14:06; Start 07/16/21 at 19:30 Labetalol HCl (Normodyne Iv Push) 10 mg PRN Q4HRS PRN IVP HYPERTENSION; Start 07/17/21 at 09:15 Potassium Phosphate 15 mmol/ Sodium Chloride 105 ml @ 52.5 mls/hr 1X ONCE IV Last administered on 07/17/21at 12:32; Start 07/17/21 at 12:00; Stop 07/17/21 at 13:59; Status DC Sodium Chloride 70 meq/Potassium Chloride 50 meq/ Potassium Phosphate 25 mmol/ Magnesium Sulfate 10 meq/ Multivitamins 10 ml/Zinc/Copper/ Manganese/ Selenium 1 ml/ Total Parenteral Nutrition/Amino Acids/Dextrose/ Fat Emulsion Intravenous 1,512 ml @ 63 mls/hr TPN CONT IV Last administered on 07/17/21at 20:22; Start 07/17/21 at 22:00; Stop 07/18/21 at 21:59; Status DC Furosemide (Lasix) 40 mg 1X ONCE IVP Last administered on 07/17/21at 12:28; Start 07/17/21 at 11:45; Stop 07/17/21 at 11:46; Status DC Sodium Acetate 70 meq/Potassium Chloride 50 meq/ Potassium Phosphate 22 mmol/ Magnesium Sulfate 8 meq/ Multivitamins 10 ml/Zinc/Copper/ Manganese/ Selenium 1 ml/ Total Parenteral Nutrition/Amino Acids/Dextrose/ Fat Emulsion Intravenous 1,512 ml @ 63 mls/hr TPN CONT IV Last administered on 07/18/21at 21:44; Start 07/18/21 at 22:00; Stop 07/19/21 at 21:59; Status DC Meropenem 500 mg/ Sodium Chloride 50 ml @ 100 mls/hr Q8HRS IV Last administered on 07/24/21at 05:48; Start 07/18/21 at 22:00 Daptomycin 450 mg/ Sodium Chloride 50 ml @ 100 mls/hr Q24H IV Last administered on 07/23/21at 20:00; Start 07/18/21 at 20:00 Sodium Chloride 40 meq/Potassium Acetate 50 meq/ Potassium Phosphate 22 mmol/ Magnesium Sulfate 8 meq/ Multivitamins 10 ml/Zinc/Copper/ Manganese/ Selenium 1 ml/ Total Parenteral Nutrition/Amino Acids/Dextrose/ Fat Emulsion Intravenous 1,680 ml @ 70 mls/hr TPN CONT IV Last administered on 07/19/21at 21:40; Start 07/19/21 at 22:00; Stop 07/20/21 at 21:59; Status DC Linezolid/Dextrose 300 ml @ 300 mls/hr Q12HR IV Last administered on 07/23/21at 21:23; Start 07/19/21 at 14:00 Sodium Chloride 40 meq/Potassium Acetate 50 meq/ Potassium Phosphate 22 mmol/ Magnesium Sulfate 6 meq/ Multivitamins 10 ml/Zinc/Copper/ Manganese/ Selenium 1 ml/ Total Parenteral Nutrition/Amino Acids/Dextrose/ Fat Emulsion Intravenous 1,680 ml @ 70 mls/hr TPN CONT IV Last administered on 07/20/21at 22:14; Start 07/20/21 at 22:00; Stop 07/21/21 at 21:59; Status DC Sodium Chloride 40 meq/Potassium Acetate 50 meq/ Potassium Phosphate 26 mmol/ Magnesium Sulfate 6 meq/ Multivitamins 10 ml/Zinc/Copper/ Manganese/ Selenium 1 ml/ Total Parenteral Nutrition/Amino Acids/Dextrose/ Fat Emulsion Intravenous 1,680 ml @ 70 mls/hr TPN CONT IV ; Start 07/21/21 at 22:00; Stop 07/21/21 at 08:54; Status DC Sodium Chloride 40 meq/Potassium Acetate 60 meq/ Potassium Phosphate 30 mmol/ Magnesium Sulfate 6 meq/ Multivitamins 10 ml/Zinc/Copper/ Manganese/ Selenium 1 ml/ Total Parenteral Nutrition/Amino Acids/Dextrose/ Fat Emulsion Intravenous 1,680 ml @ 70 mls/hr TPN CONT IV Last administered on 07/21/21at 22:18; Start 07/21/21 at 22:00; Stop 07/22/21 at 22:00; Status DC Sodium Chloride 40 meq/Potassium Acetate 60 meq/ Potassium Phosphate 30 mmol/ Magnesium Sulfate 6 meq/ Multivitamins 10 ml/Zinc/Copper/ Manganese/ Selenium 1 ml/ Total Parenteral Nutrition/Amino Acids/Dextrose/ Fat Emulsion Intravenous 1,680 ml @ 70 mls/hr TPN CONT IV Last administered on 07/22/21at 23:29; Start 07/22/21 at 22:00; Stop 07/23/21 at 21:59; Status DC Sodium Chloride 40 meq/Potassium Acetate 50 meq/ Potassium Phosphate 15 mmol/ Magnesium Sulfate 4 meq/ Multivitamins 10 ml/Zinc/Copper/ Manganese/ Selenium 1 ml/ Total Parenteral Nutrition/Amino Acids/Dextrose/ Fat Emulsion Intravenous 1,680 ml @ 70 mls/hr TPN CONT IV Last administered on 07/23/21at 22:24; Start 07/23/21 at 22:00; Stop 07/24/21 at 21:59 Sodium Chloride 40 meq/Potassium Acetate 50 meq/ Potassium Phosphate 15 mmol/ Magnesium Sulfate 4 meq/ Multivitamins 10 ml/Zinc/Copper/ Manganese/ Selenium 1 ml/ Total Parenteral Nutrition/Amino Acids/Dextrose/ Fat Emulsion Intravenous 1,680 ml @ 70 mls/hr TPN CONT IV ; Start 07/24/21 at 22:00; Stop 07/25/21 at 21:59 Active Scripts Active [Pantoprazole] 40 MG Tablet.dr 40 Mg PO BIDBFRMEAL Carafate (Sucralfate) 1 Gm/10 Ml Oral.susp 1 Gm PO TIDBFRMEAL Reported Avalide 150-12.5 Mg Tablet (Irbesartan/Hydrochlorothiazide) 1 Each Tablet 1 Each PO DAILY Vitals/I & O Vital Sign - Last 24 Hours 07/23/21 07/23/21 07/23/21 07/23/21 10:00 11:00 11:57 12:00 Pulse 70 72 Resp 26 26 B/P (MAP) 114/53 105/53 Pulse Ox 97 97 94 O2 Delivery Ventilator Ventilator Ventilator Mechanical Ventilator 07/23/21 07/23/21 07/23/21 07/23/21 12:00 13:00 14:00 14:06 Temp 98.9 98.9 Pulse 70 70 74 Resp 27 28 26 31 B/P (MAP) 108/52 119/54 106/53 Pulse Ox 97 96 97 O2 Delivery Ventilator Ventilator Ventilator Ventilator 07/23/21 07/23/21 07/23/21 07/23/21 14:36 15:00 15:45 16:00 Pulse 72 Resp 24 27 B/P (MAP) 107/42 Pulse Ox 98 99 99 O2 Delivery Ventilator Ventilator Ventilator Mechanical Ventilator 07/23/21 07/23/21 07/23/21 07/23/21 16:00 17:00 17:24 18:00 Temp 97.8 97.8 Pulse 72 70 72 Resp 28 24 25 B/P (MAP) 106/50 112/50 127/53 Pulse Ox 99 100 100 100 O2 Delivery Ventilator Ventilator Ventilator Ventilator 07/23/21 07/23/21 07/23/21 07/23/21 19:00 20:00 20:00 20:34 Temp 99.1 99.1 Pulse 67 73 Resp 24 29 B/P (MAP) 144/53 147/63 Pulse Ox 100 100 100 O2 Delivery Ventilator Ventilator Mechanical Ventilator Ventilator 07/23/21 07/23/21 07/23/21 07/23/21 21:00 22:00 22:30 23:00 Pulse 74 76 76 Resp 29 32 30 B/P (MAP) 133/58 118/58 117/57 Pulse Ox 100 100 100 100 O2 Delivery Ventilator Ventilator Ventilator Ventilator 07/23/21 07/24/21 07/24/21 07/24/21 23:59 00:01 01:00 01:00 Temp 99.4 99.4 Pulse 75 77 Resp 31 28 B/P (MAP) 110/49 117/51 Pulse Ox 100 100 100 O2 Delivery Mechanical Ventilator Ventilator Ventilator Ventilator 07/24/21 07/24/21 07/24/21 07/24/21 02:00 03:00 03:30 04:00 Temp 99.6 99.6 Pulse 76 71 72 Resp 33 37 36 B/P (MAP) 119/55 115/58 131/61 Pulse Ox 100 100 100 100 O2 Delivery Ventilator Ventilator Ventilator Ventilator 07/24/21 07/24/21 07/24/21 07/24/21 04:00 05:00 05:10 06:00 Pulse 68 72 Resp 26 28 B/P (MAP) 139/55 127/46 Pulse Ox 100 100 100 O2 Delivery Mechanical Ventilator Ventilator Ventilator Ventilator 07/24/21 07/24/21 07/24/21 07:00 08:00 08:03 Temp 99.1 99.1 Pulse 73 70 Resp 30 26 B/P (MAP) 112/50 107/49 Pulse Ox 100 100 100 O2 Delivery Ventilator Ventilator Ventilator Intake and Output 07/23/21 07/23/21 07/24/21 15:00 23:00 07:00 Intake Total 1297 ml 790 ml Output Total 475 ml 460 ml 630 ml Balance -475 ml 837 ml 160 ml Justicifation of Admission Dx: Justifications for Admission: Justification of Admission Dx: Yes Sepsis: Hemodynamic Instability ROME CANTOR MD July 24, 2021 09:33
--- NOTE | 2021-07-24 09:43 | PN ---
DATE: 07/24/2021 SUBJECTIVE: The patient is resting, slightly propped up in bed, in no apparent respiratory distress. He continued to be intubated and mechanically ventilated. He is scheduled for tracheostomy tube placement this morning. The nursing staff did not voice any concerns that he had generally uneventful night. PHYSICAL EXAMINATION: GENERAL: When I examined him, he looked well and was clearly in no apparent distress. He was pale, somewhat cachectic, but not jaundiced or cyanosed. No lymphadenopathy, no thyromegaly, no jugular venous distention. No lower limb edema. VITAL SIGNS: His heart rate was 70, blood pressure was 107/49, temperature 99.1, respiratory rate was 26 and oxygen saturation was 100% on FiO2 of 40%. HEAD, EYES, EARS, NOSE AND THROAT: Normocephalic, atraumatic. Has orotracheal and orogastric tube. NECK: Supple. HEART: Showed normal first and second heart sounds. No gallop or murmur. CHEST: Clear to auscultation, no crepitation or rhonchi. ABDOMEN: Distended, soft with midline surgical incision covered with dressing, has a gastrostomy tube and a jejunostomy tube in place. There is no guarding or rigidity. No organomegaly. Bowel sounds are normal. NEUROLOGIC: He is definitely more awake, alert, opens his eyes, tracks and responds appropriately. He moves upper extremities to much good extent than lower extremities. His intake was 1275, output was 1445. LABORATORY DATA: As of yesterday, his white cell count was 16.5, hemoglobin 10, hematocrit 30, MCV 88 and platelet count of 449. His chemistry showed a serum sodium 145, potassium 4.2, chloride 112, bicarbonate 22, anion gap of 10, BUN 42, creatinine 1.1, estimated GFR was 64 mL per minute. His glucose 107, calcium was 7.4, phosphorus 3.6 and magnesium was 2.3. ASSESSMENT: 1. Perforated viscus, status post exploratory laparotomy, reduction of the gastric volvulus and hiatal hernia repair with gastrostomy tube placement as well as jejunostomy tube placement. 2. Acute hypoxic respiratory failure, for which he continued to be intubated and mechanically ventilated. He is off sedation and he is scheduled for tracheostomy tube placement. He is maintaining his oxygen saturation at 97% on FiO2 of 40%. 3. Hypotension, resolved. He is off Levophed and he is currently normotensive. 4. Acute kidney injury, has improved. His serum creatinine came down to 1.1. 5. His white cell count has risen up to 19.8, for which he did repeat blood culture and he is now on meropenem, daptomycin and linezolid. His CT scan of the abdomen showed that he has what seemed to be an abscess in the right upper quadrant in front of the left hepatic lobe, 6. His liver enzymes were elevated; however, they are trending down. 7. He has severe protein-calorie malnutrition. Serum albumin is only 1 g/dL. 8. He has metastatic melanoma, for which he was seen by the oncologist, but no plans for any treatment for now as long as he is still on mechanical ventilation and IV antibiotic, 9. He has multiple preexisting conditions include: A. Hypertension. B. Hiatal hernia. C. Gastroesophageal reflux disease. D. Gastric ulcer. E. Chronic constipation. PLAN: Proceed with the tracheostomy tube placement. Continue with TPN. Continue with IV antibiotic. Continue with DVT and GI prophylaxis. The patient will be transferred to [facility] once his insurance authorizes that. FELECIA DR: Marta TID: [id number]
--- NOTE | 2021-07-24 10:54 | PDOC ---
PULMONARY PROGRESS NOTES DATE: 07/24/21 TIME: 10:52 Subjective Patient remains assist-control mode with daily CPAP trials. I observed him during CPAP trial again this morning.. He still lethargic. He becomes t achypneic during CPAP trials. He still very weak. Vitals Vital Signs Date Time Temp Pulse Resp B/P (MAP) Pulse Ox O2 Delivery O2 Flow Rate FiO2 07/24/21 10:12 74 30 123/54 100 Ventilator 07/24/21 07:00 99.1 99.1 General: Confused Lungs: Clear Cardiovascular: S1, S2 Abdomen: Soft, Other (Distended) Extremities: Other (Significant scrotal edema.) Skin: Warm Labs Laboratory Tests Test 07/22/21 11:55 07/23/21 05:35 07/23/21 08:45 07/24/21 05:35 O2 Saturation 97 % (92-99) 97 % (92-99) Arterial Blood pH 7.46 (7.35-7.45) 7.45 (7.35-7.45) Arterial Blood pCO2 at Patient Temp 28 mmHg (35-46) 29 mmHg (35-46) Arterial Blood pO2 at Patient Temp 88 mmHg (65-108) 90 mmHg (65-108) Arterial Blood HCO3 20 mmol/L (21-28) 20 mmol/L (21-28) Arterial Blood Base Excess -3 mmol/L (-3-3) -4 mmol/L (-3-3) FiO2 40 t tube 40 cpap White Blood Count 16.5 x10^3/uL (4.0-11.0) Red Blood Count 3.43 x10^6/uL (4.30-5.70) Hemoglobin 9.9 g/dL (13.0-17.5) Hematocrit 30.0 % (39.0-53.0) Mean Corpuscular Volume 88 fL (79-100) Mean Corpuscular Hemoglobin 29 pg (25-35) Mean Corpuscular Hemoglobin Concent 33 g/dL (31-37) Red Cell Distribution Width 16.4 % (11.5-14.5) Platelet Count 449 x10^3/uL (140-400) Neutrophils (%) (Auto) 89 % (31-73) Lymphocytes (%) (Auto) 4 % (24-48) Monocytes (%) (Auto) 7 % (0-9) Eosinophils (%) (Auto) 0 % (0-3) Basophils (%) (Auto) 0 % (0-3) Neutrophils # (Auto) 14.6 x10^3/uL (1.8-7.7) Lymphocytes # (Auto) 0.6 x10^3/uL (1.0-4.8) Monocytes # (Auto) 1.2 x10^3/uL (0.0-1.1) Eosinophils # (Auto) 0.0 x10^3/uL (0.0-0.7) Basophils # (Auto) 0.1 x10^3/uL (0.0-0.2) Sodium Level 143 mmol/L (136-145) 145 mmol/L (136-145) Potassium Level 4.3 mmol/L (3.5-5.1) 4.2 mmol/L (3.5-5.1) Chloride Level 112 mmol/L (98-107) 113 mmol/L (98-107) Carbon Dioxide Level 23 mmol/L (21-32) 22 mmol/L (21-32) Anion Gap 8 (6-14) 10 (6-14) Blood Urea Nitrogen 42 mg/dL (8-26) 42 mg/dL (8-26) Creatinine 1.2 mg/dL (0.7-1.3) 1.1 mg/dL (0.7-1.3) Estimated GFR (Cockcroft-Gault) 57.5 63.6 BUN/Creatinine Ratio 35 (6-20) Glucose Level 132 mg/dL (70-99) 107 mg/dL (70-99) Calcium Level 7.5 mg/dL (8.5-10.1) 7.4 mg/dL (8.5-10.1) Phosphorus Level 4.7 mg/dL (2.6-4.7) 3.6 mg/dL (2.6-4.7) Magnesium Level 2.4 mg/dL (1.8-2.4) 2.3 mg/dL (1.8-2.4) Total Bilirubin 1.0 mg/dL (0.2-1.0) Aspartate Amino Transf (AST/SGOT) 88 U/L (15-37) Alanine Aminotransferase (ALT/SGPT) 93 U/L (16-63) Alkaline Phosphatase 194 U/L (46-116) Total Protein 5.2 g/dL (6.4-8.2) Albumin 1.0 g/dL (3.4-5.0) Albumin/Globulin Ratio 0.2 (1.0-1.7) Laboratory Tests Test 07/24/21 05:35 Sodium Level 145 mmol/L (136-145) Potassium Level 4.2 mmol/L (3.5-5.1) Chloride Level 113 mmol/L (98-107) Carbon Dioxide Level 22 mmol/L (21-32) Anion Gap 10 (6-14) Blood Urea Nitrogen 42 mg/dL (8-26) Creatinine 1.1 mg/dL (0.7-1.3) Estimated GFR (Cockcroft-Gault) 63.6 Glucose Level 107 mg/dL (70-99) Calcium Level 7.4 mg/dL (8.5-10.1) Phosphorus Level 3.6 mg/dL (2.6-4.7) Magnesium Level 2.3 mg/dL (1.8-2.4) Medications Active Scripts Medications Dose Route/Sig Max Daily Dose Days Date Category [Pantoprazole] 40 MG Tablet.dr 40 Mg PO BIDBFRMEAL 06/22/17 Rx Carafate (Sucralfate) 1 Gm/10 Ml Oral.susp 1 Gm PO TIDBFRMEAL 06/22/17 Rx Avalide 150-12.5 Mg Tablet (Irbesartan/Hydrochlorothiazide) 1 Each Tablet 1 Each PO DAILY 06/19/17 Reported Comments Chest x-ray reviewed 07/23/2021 Left pleural effusion and infiltrate. CT chest dated 07/19/2021 reviewed. Bilateral lung nodules consistent with metastatic disease. Mild to moderate bilateral pleural effusions with associated compressive atelectasis. Chest x-ray reviewed 07/17/2021. Mild progression of interstitial infiltrates and pleural effusion consistent with CHF. There is a skinfold on the left apex unlikely pneumothorax. Impression . Acute respiratory failure multifactorial status post exploratory laparotomy for perforated viscus Septic shock. Resolved. Off Levophed. Fever, per ID Acute renal failure. History of prostate cancer Severe protein malnutrition present upon admission. 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 Bilateral lung nodules suggestive of metastasis to the lungs. Bilateral moderate pleural effusions with associated atelectasis related to low oncotic pressure. CT chest reviewed dated 07/19/2021 Toxic metabolic encephalopathy, improving Abnormal liver function test. \ Plan . Updated 07/24 Remains on assist control mode with intermittent CPAP trials. Remains tachypneic during CPAP trials with moderate secretions. Scheduled for tracheostomy this afternoon. Labs reviewed updated Appreciate surgery input. Discussed with Dr. Leon. Will proceed with aggressive weaning post tracheostomy. Updated son at the bedside ABG noticed PaO2 of 71 on 40% I have talked to patient's son in detail. Updated 07/23 On pressure support of 16 patient's respiratory rate in the high 20s. Still very weak. He still has moderate secretions. I rested him back on assist control mode. Labs reviewed updated Appreciate surgery input Suspect patient will be extubated in the next 24 to 48 hours Updated son at the bedside ABG noticed PaO2 of 71 on 40% I have talked to patient's son in detail. I did explain to him that patient is weak and becomes tachypneic during CPAP trials. He still has moderate secretions. He may not be able to protect his airway once extubated. He will be better off with a tracheostomy. Son agrees. Critical care time of 30 minutes Updated 07/22 On pressure support of 16 patient's respiratory rate less than 30 I placed him on pressure support of 8 and his respiratory rate harinder to above 36 Will attempt T-tube trial Labs reviewed updated Appreciate surgery input Suspect patient will be extubated in the next 24 to 48 hours Updated son at the bedside ABG noticed PaO2 of 71 on 40% Critical care time of 30 minutes 07/21 Patient more awake alert Currently on pressure support of 16 tidal volume approximately 400 Dropped his pressure support to 5 his tidal volume was only about 250 Off of pressors Continue broad-spectrum antibiotics per ID Labs reviewed ABG noted PO2 of 112 from 5 1 Follow surgery input Discussed with son at the bedside CCT 30 minutes YASMIN WEAVER MD July 24, 2021 10:54
[2021-07-24] MEDS ORDERED: PROPOFOL 100 ML IV PRN (12:30)
[2021-07-24] MEDS ORDERED: fentaNYL PF VIAL 100 MCG/2 ML VIAL ONE (12:49)
[2021-07-24] MEDS ORDERED: PROPOFOL 10 MG/ML (20ML) VIAL. IV ONE (12:49)
[2021-07-24] MEDS ORDERED: ROCURONIUM 50 MG/5 ML VIAL. ONE (12:49)
[2021-07-24] MEDS ORDERED: SURGICEL FIBRILLAR 1X2 EACH. ONE (12:52)
[2021-07-24] MEDS ORDERED: BUPIVACAINE-EPI 0.5% 30 ML VIAL KIT. ONE (12:53)
[2021-07-24] MEDS ORDERED: MIDAZOLAM 100mg/100ml NS BAG 100 ML IV PRN (13:00)
--- NOTE | 2021-07-24 13:12 | PDOC ---
SURGICAL PROGRESS NOTE DATE: 07/24/21 TIME: 13:10 Subjective Pre-Op Note 85 yo M s/p repair of HH and perforated duodenal ulcer. Difficult to wean off vent and tracheostomy requested. Pt awake on vent TO OR for tracheostomy. R/R/B/A d/w pt's son at bedside. Risks, including, but not limited to: bleeding, infection, damage to surrounding structures, risk of anesthesia. He appears to understand, his questions are answered and he elects to proceed. Vital Signs Vital Signs Date Time Temp Pulse Resp B/P (MAP) Pulse Ox O2 Delivery O2 Flow Rate FiO2 07/24/21 12:14 98.9 75 30 120/54 100 Ventilator 98.9 I&O Intake and Output 07/24/21 07:00 Intake Total 2087 ml Output Total 1565 ml Balance 522 ml IV Total 2087 ml Output Urine Total 1220 ml Gastric Drainage Total 270 ml Drainage Total 75 ml # Bowel Movements 2 Labs Laboratory Tests Test 07/23/21 05:35 07/23/21 08:45 07/24/21 05:35 White Blood Count 16.5 x10^3/uL (4.0-11.0) Red Blood Count 3.43 x10^6/uL (4.30-5.70) Hemoglobin 9.9 g/dL (13.0-17.5) Hematocrit 30.0 % (39.0-53.0) Mean Corpuscular Volume 88 fL (79-100) Mean Corpuscular Hemoglobin 29 pg (25-35) Mean Corpuscular Hemoglobin Concent 33 g/dL (31-37) Red Cell Distribution Width 16.4 % (11.5-14.5) Platelet Count 449 x10^3/uL (140-400) Neutrophils (%) (Auto) 89 % (31-73) Lymphocytes (%) (Auto) 4 % (24-48) Monocytes (%) (Auto) 7 % (0-9) Eosinophils (%) (Auto) 0 % (0-3) Basophils (%) (Auto) 0 % (0-3) Neutrophils # (Auto) 14.6 x10^3/uL (1.8-7.7) Lymphocytes # (Auto) 0.6 x10^3/uL (1.0-4.8) Monocytes # (Auto) 1.2 x10^3/uL (0.0-1.1) Eosinophils # (Auto) 0.0 x10^3/uL (0.0-0.7) Basophils # (Auto) 0.1 x10^3/uL (0.0-0.2) Sodium Level 143 mmol/L (136-145) 145 mmol/L (136-145) Potassium Level 4.3 mmol/L (3.5-5.1) 4.2 mmol/L (3.5-5.1) Chloride Level 112 mmol/L (98-107) 113 mmol/L (98-107) Carbon Dioxide Level 23 mmol/L (21-32) 22 mmol/L (21-32) Anion Gap 8 (6-14) 10 (6-14) Blood Urea Nitrogen 42 mg/dL (8-26) 42 mg/dL (8-26) Creatinine 1.2 mg/dL (0.7-1.3) 1.1 mg/dL (0.7-1.3) Estimated GFR (Cockcroft-Gault) 57.5 63.6 BUN/Creatinine Ratio 35 (6-20) Glucose Level 132 mg/dL (70-99) 107 mg/dL (70-99) Calcium Level 7.5 mg/dL (8.5-10.1) 7.4 mg/dL (8.5-10.1) Phosphorus Level 4.7 mg/dL (2.6-4.7) 3.6 mg/dL (2.6-4.7) Magnesium Level 2.4 mg/dL (1.8-2.4) 2.3 mg/dL (1.8-2.4) Total Bilirubin 1.0 mg/dL (0.2-1.0) Aspartate Amino Transf (AST/SGOT) 88 U/L (15-37) Alanine Aminotransferase (ALT/SGPT) 93 U/L (16-63) Alkaline Phosphatase 194 U/L (46-116) Total Protein 5.2 g/dL (6.4-8.2) Albumin 1.0 g/dL (3.4-5.0) Albumin/Globulin Ratio 0.2 (1.0-1.7) O2 Saturation 97 % (92-99) Arterial Blood pH 7.45 (7.35-7.45) Arterial Blood pCO2 at Patient Temp 29 mmHg (35-46) Arterial Blood pO2 at Patient Temp 90 mmHg (65-108) Arterial Blood HCO3 20 mmol/L (21-28) Arterial Blood Base Excess -4 mmol/L (-3-3) FiO2 40 cpap Laboratory Tests Test 07/24/21 05:35 Sodium Level 145 mmol/L (136-145) Potassium Level 4.2 mmol/L (3.5-5.1) Chloride Level 113 mmol/L (98-107) Carbon Dioxide Level 22 mmol/L (21-32) Anion Gap 10 (6-14) Blood Urea Nitrogen 42 mg/dL (8-26) Creatinine 1.1 mg/dL (0.7-1.3) Estimated GFR (Cockcroft-Gault) 63.6 Glucose Level 107 mg/dL (70-99) Calcium Level 7.4 mg/dL (8.5-10.1) Phosphorus Level 3.6 mg/dL (2.6-4.7) Magnesium Level 2.3 mg/dL (1.8-2.4) Justicifation of Admission Dx: Justifications for Admission: Justification of Admission Dx: Yes Sepsis: Hemodynamic Instability STEVEN ZENDEJAS MD July 24, 2021 13:12
--- NOTE | 2021-07-24 13:22 | PDOC ---
Infectious Disease Note Subjective Subjective Pt is intubated on vent Arousable afebrile last 24 hrs ROS ROS no n/v/d/ Vital Sign Vital Signs Vital Signs Date Time Temp Pulse Resp B/P (MAP) Pulse Ox O2 Delivery O2 Flow Rate FiO2 07/24/21 12:14 98.9 75 30 120/54 100 Ventilator 98.9 Physical Exam PHYSICAL EXAM GENERAL: , [facility] HEENT: Both pupils are round and reacting. No conjunctival lesion. No lesion in the mouth. Mouth cannot be visualized much as orally intubated. LUNGS: . Decreased breath sounds. HEART: S1, S2 regular. No murmur. ABDOMEN: Multiple tubes in the post-surgical dressing not opened. scrotal swelling, conway in place EXTREMITIES: No cyanosis, generalized edema SKIN: No generalized rash NEUROLOGIC: opens eyes, Labs Lab Laboratory Tests Test 07/24/21 05:35 Sodium Level 145 mmol/L (136-145) Potassium Level 4.2 mmol/L (3.5-5.1) Chloride Level 113 mmol/L (98-107) Carbon Dioxide Level 22 mmol/L (21-32) Anion Gap 10 (6-14) Blood Urea Nitrogen 42 mg/dL (8-26) Creatinine 1.1 mg/dL (0.7-1.3) Estimated GFR (Cockcroft-Gault) 63.6 Glucose Level 107 mg/dL (70-99) Calcium Level 7.4 mg/dL (8.5-10.1) Phosphorus Level 3.6 mg/dL (2.6-4.7) Magnesium Level 2.3 mg/dL (1.8-2.4) Micro Microbiology 07/19/21 Respiratory Culture Gram Stain - Final, Complete 07/19/21 Respiratory Culture - Final, Complete Elda Albicans Elda Glabrata 07/18/21 Blood Culture - Final, Complete NO GROWTH AFTER 5 DAYS Objective Assessment 1. Perforated viscus, status post exploratory laparotomy, reduction of gastric volvulus, hiatal hernia repair, gastrostomy tube placement and duodenoscopy with tube placement done. 2. Hypotension, requiring vasopressor support. 3. Respiratory failure, requiring ventilatory support. Pleural effusion and pulm infiltrate 4. Renal failure. 5. History of prostate cancer. path + with melanoma 6. Pneumonia 7. CT abdomen and pelvis with intraabdominal fluid collection could be abscess, not a candidate for IR drainage Plan Plan of Care Merrem , daptomycin and Zyvox Monitor labs and cultures F/U BC 07/18 CT C/A/P reviewed Gen surgery following Patient is not a candidate for IR drainage at this time cont supportive care Critically ill Prognosis very poor consider palliative care Awaiting trach today Discussed with NYLA LAYNE MD July 24, 2021 13:22
[2021-07-24] MEDS ORDERED: PHENYLEPHRINE in 0.9% NACL PF 1 MG/10 ML SYRINGE. IV ONE (13:35)
[2021-07-24] MEDS ORDERED: BUPIVACAINE-EPI 0.5% 30 ML VIAL KIT. INJ ONE (13:44)
--- NOTE | 2021-07-24 13:45 | NUR ---
SS following up with discharge planning. SS reviewed pt chart. Pt accepted at [facility], ; fax [phone], and [facility], ; [phone]. Packet on chart. Trach today. Clinical updates sent to [facility] and [facility]. SS will continue to follow for discharge planning.
--- NOTE | 2021-07-24 14:14 | PDOC4 ---
OPERATIVE NOTE Date: Date: July 24, 2021 Pre-Op Diagnosis: Respiratory failure Post-Op Diagnosis: same Procedure Performed: open tracheostomy placement (specifically shiley cuffed 8) Surgeon: Carlton Zendejas Anesthesia Type: GETA plus local Blood Loss: 10 Specimans Obtained: none Findings: normal anatomy Complications: none Operative Note: After obtaining informed consent, patient was taken to OR, induced under GETA and prepped in the usual fashion. Vertical incision was made with cautery 2 cm above sternal notch. Subcutaneous tissues divided with cautery. Trachea encountered and 3 0 PDS placed in cricoid thyroid cartilege and secured to left neck with steristrips. 2nd tracheal ring identified and transverse incision made with 15 blade. Tracheostomy introduced under direct vision and balloon inflated. End tidal CO2 detected and patient was successfully oxygenated and ventilated. Tracheostomy secured with 3 0 nylon and tracheal collar. Patient tolerated procedure well and sent to ICU in stable condition. All counts correct. Wound class is 4. STEVEN ZENDEJAS MD July 24, 2021 14:13
--- NOTE | 2021-07-24 18:34 | NUR ---
A tracheostomy procedure today. Per Dr. Medina, patient is to kept sedated and lay flat for the next 24 hours. Will continue to monitor patient.
[2021-07-24] MEDS: DAPTOmycin (GENERIC) IVPB 450 MG in IV NORMAL SALINE 50ML 50 ML IV SCH (20:41)
[2021-07-24] MEDS: FAMOTIDINE 20 MG/2 ML VIAL IVP SCH (20:42)
[2021-07-24] MEDS ORDERED: AMINO ACID IV SCH (22:00)
[2021-07-24] MEDS ORDERED: TOTAL PARENTERAL NUTRITION IV SCH (22:00)
[2021-07-24] MEDS ORDERED: [UNRECOGNIZED DRUG - OTHER] IV SCH (22:00)
[2021-07-24] MEDS ORDERED: DEXTROSE IV SCH (22:00)
[2021-07-25] VITALS (28 sets, daily range): BP systolic 84–143; BP diastolic 37–84
[2021-07-25 05:04] LABS: HEMOGLOBIN 8.9 g/dL (13.0-17.5); RED BLOOD COUNT 3.06 x10^6/uL (4.30-5.70); RED CELL DISTRIBUTION WIDTH 16.7 % (11.5-14.5); WHITE BLOOD COUNT 14.4 x10^3/uL (4.0-11.0)
[2021-07-25 05:21] LABS: PHOSPHORUS 3.9 mg/dL (2.6-4.7)
[2021-07-25 05:22] LABS: ALBUMIN 0.8 g/dL (3.4-5.0); ALBUMIN/GLOBULIN RATIO 0.2 (1.0-1.7); CALCIUM 6.8 mg/dL (8.5-10.1); CREATININE 1.1 mg/dL (0.7-1.3); GFR 63.6; POTASSIUM 4.5 mmol/L (3.5-5.1); TOTAL PROTEIN 4.9 g/dL (6.4-8.2)
[2021-07-25] MEDS: MEROPENEM 500 MG in IV NORMAL SALINE 50ML 50 ML IV SCH ×3 (05:39→21:43)
[2021-07-25] MEDS: NOREPINEPHRINE VIAL 32 MG in IV D5W 250ML IV PRN (06:16)
[2021-07-25 07:20] LABS: BASE EXCESS ABG -4 mmol/L (-3-3); HCO3 ABG 19 mmol/L (21-28); PCO2 ABG 27 mmHg (35-46); PO2 ABG 63 mmHg (65-108); SAT O2 ABG 93 % (92-99)
[2021-07-25 07:21] LABS: FIO2 ABG 40% vent
--- NOTE | 2021-07-25 07:58 | PDOC ---
SURGICAL PROGRESS NOTE DATE: 07/25/21 TIME: 07:57 Subjective sedated d/w staff Vital Signs Vital Signs Date Time Temp Pulse Resp B/P (MAP) Pulse Ox O2 Delivery O2 Flow Rate FiO2 07/25/21 07:14 100 Ventilator 07/25/21 06:30 65 113/50 07/25/21 06:00 20 07/25/21 04:00 99.3 99.3 07/24/21 16:14 2.0 I&O Intake and Output 07/25/21 07:00 Intake Total 2374.9 ml Output Total 1160 ml Balance 1214.9 ml IV Total 2374.9 ml Output Urine Total 860 ml Drainage Total 300 ml # Bowel Movements 1 PATIENT HAS A PEDRO: Yes General: Other (sedated ) HEENT: Other (trach intact, no bleeding ) Abdomen: Soft, Other (dressing dry, tubes in place) Labs Laboratory Tests Test 07/23/21 08:45 07/24/21 05:35 07/25/21 04:55 07/25/21 07:18 O2 Saturation 97 % (92-99) 93 % (92-99) Arterial Blood pH 7.45 (7.35-7.45) 7.46 (7.35-7.45) Arterial Blood pCO2 at Patient Temp 29 mmHg (35-46) 27 mmHg (35-46) Arterial Blood pO2 at Patient Temp 90 mmHg (65-108) 63 mmHg (65-108) Arterial Blood HCO3 20 mmol/L (21-28) 19 mmol/L (21-28) Arterial Blood Base Excess -4 mmol/L (-3-3) -4 mmol/L (-3-3) FiO2 40 cpap 40% vent Sodium Level 145 mmol/L (136-145) 143 mmol/L (136-145) Potassium Level 4.2 mmol/L (3.5-5.1) 4.5 mmol/L (3.5-5.1) Chloride Level 113 mmol/L (98-107) 113 mmol/L (98-107) Carbon Dioxide Level 22 mmol/L (21-32) 24 mmol/L (21-32) Anion Gap 10 (6-14) 6 (6-14) Blood Urea Nitrogen 42 mg/dL (8-26) 40 mg/dL (8-26) Creatinine 1.1 mg/dL (0.7-1.3) 1.1 mg/dL (0.7-1.3) Estimated GFR (Cockcroft-Gault) 63.6 63.6 Glucose Level 107 mg/dL (70-99) 114 mg/dL (70-99) Calcium Level 7.4 mg/dL (8.5-10.1) 6.8 mg/dL (8.5-10.1) Phosphorus Level 3.6 mg/dL (2.6-4.7) 3.9 mg/dL (2.6-4.7) Magnesium Level 2.3 mg/dL (1.8-2.4) 2.0 mg/dL (1.8-2.4) White Blood Count 14.4 x10^3/uL (4.0-11.0) Red Blood Count 3.06 x10^6/uL (4.30-5.70) Hemoglobin 8.9 g/dL (13.0-17.5) Hematocrit 27.0 % (39.0-53.0) Mean Corpuscular Volume 88 fL (79-100) Mean Corpuscular Hemoglobin 29 pg (25-35) Mean Corpuscular Hemoglobin Concent 33 g/dL (31-37) Red Cell Distribution Width 16.7 % (11.5-14.5) Platelet Count 430 x10^3/uL (140-400) BUN/Creatinine Ratio 36 (6-20) Total Bilirubin 1.0 mg/dL (0.2-1.0) Aspartate Amino Transf (AST/SGOT) 132 U/L (15-37) Alanine Aminotransferase (ALT/SGPT) 123 U/L (16-63) Alkaline Phosphatase 246 U/L (46-116) Creatine Kinase 25 U/L (39-308) Total Protein 4.9 g/dL (6.4-8.2) Albumin 0.8 g/dL (3.4-5.0) Albumin/Globulin Ratio 0.2 (1.0-1.7) Laboratory Tests Test 07/25/21 04:55 07/25/21 07:18 White Blood Count 14.4 x10^3/uL (4.0-11.0) Red Blood Count 3.06 x10^6/uL (4.30-5.70) Hemoglobin 8.9 g/dL (13.0-17.5) Hematocrit 27.0 % (39.0-53.0) Mean Corpuscular Volume 88 fL (79-100) Mean Corpuscular Hemoglobin 29 pg (25-35) Mean Corpuscular Hemoglobin Concent 33 g/dL (31-37) Red Cell Distribution Width 16.7 % (11.5-14.5) Platelet Count 430 x10^3/uL (140-400) Sodium Level 143 mmol/L (136-145) Potassium Level 4.5 mmol/L (3.5-5.1) Chloride Level 113 mmol/L (98-107) Carbon Dioxide Level 24 mmol/L (21-32) Anion Gap 6 (6-14) Blood Urea Nitrogen 40 mg/dL (8-26) Creatinine 1.1 mg/dL (0.7-1.3) Estimated GFR (Cockcroft-Gault) 63.6 BUN/Creatinine Ratio 36 (6-20) Glucose Level 114 mg/dL (70-99) Calcium Level 6.8 mg/dL (8.5-10.1) Phosphorus Level 3.9 mg/dL (2.6-4.7) Magnesium Level 2.0 mg/dL (1.8-2.4) Total Bilirubin 1.0 mg/dL (0.2-1.0) Aspartate Amino Transf (AST/SGOT) 132 U/L (15-37) Alanine Aminotransferase (ALT/SGPT) 123 U/L (16-63) Alkaline Phosphatase 246 U/L (46-116) Creatine Kinase 25 U/L (39-308) Total Protein 4.9 g/dL (6.4-8.2) Albumin 0.8 g/dL (3.4-5.0) Albumin/Globulin Ratio 0.2 (1.0-1.7) O2 Saturation 93 % (92-99) Arterial Blood pH 7.46 (7.35-7.45) Arterial Blood pCO2 at Patient Temp 27 mmHg (35-46) Arterial Blood pO2 at Patient Temp 63 mmHg (65-108) Arterial Blood HCO3 19 mmol/L (21-28) Arterial Blood Base Excess -4 mmol/L (-3-3) FiO2 40% vent Problem List trach stable Justicifation of Admission Dx: Justifications for Admission: Justification of Admission Dx: Yes Sepsis: Hemodynamic Instability NICKEL,KOURTNEY L [employer] July 25, 2021 07:58
--- NOTE | 2021-07-25 09:00 | PDOC ---
PULMONARY PROGRESS NOTES DATE: 07/25/21 TIME: 08:57 Subjective Status post tracheostomy 07/24/2021. Patient was very sedated. Remains on assist control mode. Vitals Vital Signs Date Time Temp Pulse Resp B/P (MAP) Pulse Ox O2 Delivery O2 Flow Rate FiO2 07/25/21 08:34 100 Ventilator 07/25/21 08:00 99.8 71 21 98/41 99.8 07/24/21 16:14 2.0 Lungs: Clear Cardiovascular: S1, S2 Abdomen: Soft, Other (Distended) Extremities: Other (Significant scrotal edema.) Skin: Warm Labs Laboratory Tests Test 07/24/21 05:35 07/25/21 04:55 07/25/21 07:18 Sodium Level 145 mmol/L (136-145) 143 mmol/L (136-145) Potassium Level 4.2 mmol/L (3.5-5.1) 4.5 mmol/L (3.5-5.1) Chloride Level 113 mmol/L (98-107) 113 mmol/L (98-107) Carbon Dioxide Level 22 mmol/L (21-32) 24 mmol/L (21-32) Anion Gap 10 (6-14) 6 (6-14) Blood Urea Nitrogen 42 mg/dL (8-26) 40 mg/dL (8-26) Creatinine 1.1 mg/dL (0.7-1.3) 1.1 mg/dL (0.7-1.3) Estimated GFR (Cockcroft-Gault) 63.6 63.6 Glucose Level 107 mg/dL (70-99) 114 mg/dL (70-99) Calcium Level 7.4 mg/dL (8.5-10.1) 6.8 mg/dL (8.5-10.1) Phosphorus Level 3.6 mg/dL (2.6-4.7) 3.9 mg/dL (2.6-4.7) Magnesium Level 2.3 mg/dL (1.8-2.4) 2.0 mg/dL (1.8-2.4) White Blood Count 14.4 x10^3/uL (4.0-11.0) Red Blood Count 3.06 x10^6/uL (4.30-5.70) Hemoglobin 8.9 g/dL (13.0-17.5) Hematocrit 27.0 % (39.0-53.0) Mean Corpuscular Volume 88 fL (79-100) Mean Corpuscular Hemoglobin 29 pg (25-35) Mean Corpuscular Hemoglobin Concent 33 g/dL (31-37) Red Cell Distribution Width 16.7 % (11.5-14.5) Platelet Count 430 x10^3/uL (140-400) BUN/Creatinine Ratio 36 (6-20) Total Bilirubin 1.0 mg/dL (0.2-1.0) Aspartate Amino Transf (AST/SGOT) 132 U/L (15-37) Alanine Aminotransferase (ALT/SGPT) 123 U/L (16-63) Alkaline Phosphatase 246 U/L (46-116) Creatine Kinase 25 U/L (39-308) Total Protein 4.9 g/dL (6.4-8.2) Albumin 0.8 g/dL (3.4-5.0) Albumin/Globulin Ratio 0.2 (1.0-1.7) O2 Saturation 93 % (92-99) Arterial Blood pH 7.46 (7.35-7.45) Arterial Blood pCO2 at Patient Temp 27 mmHg (35-46) Arterial Blood pO2 at Patient Temp 63 mmHg (65-108) Arterial Blood HCO3 19 mmol/L (21-28) Arterial Blood Base Excess -4 mmol/L (-3-3) FiO2 40% vent Laboratory Tests Test 07/25/21 04:55 07/25/21 07:18 White Blood Count 14.4 x10^3/uL (4.0-11.0) Red Blood Count 3.06 x10^6/uL (4.30-5.70) Hemoglobin 8.9 g/dL (13.0-17.5) Hematocrit 27.0 % (39.0-53.0) Mean Corpuscular Volume 88 fL (79-100) Mean Corpuscular Hemoglobin 29 pg (25-35) Mean Corpuscular Hemoglobin Concent 33 g/dL (31-37) Red Cell Distribution Width 16.7 % (11.5-14.5) Platelet Count 430 x10^3/uL (140-400) Sodium Level 143 mmol/L (136-145) Potassium Level 4.5 mmol/L (3.5-5.1) Chloride Level 113 mmol/L (98-107) Carbon Dioxide Level 24 mmol/L (21-32) Anion Gap 6 (6-14) Blood Urea Nitrogen 40 mg/dL (8-26) Creatinine 1.1 mg/dL (0.7-1.3) Estimated GFR (Cockcroft-Gault) 63.6 BUN/Creatinine Ratio 36 (6-20) Glucose Level 114 mg/dL (70-99) Calcium Level 6.8 mg/dL (8.5-10.1) Phosphorus Level 3.9 mg/dL (2.6-4.7) Magnesium Level 2.0 mg/dL (1.8-2.4) Total Bilirubin 1.0 mg/dL (0.2-1.0) Aspartate Amino Transf (AST/SGOT) 132 U/L (15-37) Alanine Aminotransferase (ALT/SGPT) 123 U/L (16-63) Alkaline Phosphatase 246 U/L (46-116) Creatine Kinase 25 U/L (39-308) Total Protein 4.9 g/dL (6.4-8.2) Albumin 0.8 g/dL (3.4-5.0) Albumin/Globulin Ratio 0.2 (1.0-1.7) O2 Saturation 93 % (92-99) Arterial Blood pH 7.46 (7.35-7.45) Arterial Blood pCO2 at Patient Temp 27 mmHg (35-46) Arterial Blood pO2 at Patient Temp 63 mmHg (65-108) Arterial Blood HCO3 19 mmol/L (21-28) Arterial Blood Base Excess -4 mmol/L (-3-3) FiO2 40% vent Medications Active Scripts Medications Dose Route/Sig Max Daily Dose Days Date Category [Pantoprazole] 40 MG Tablet.dr 40 Mg PO BIDBFRMEAL 06/22/17 Rx Carafate (Sucralfate) 1 Gm/10 Ml Oral.susp 1 Gm PO TIDBFRMEAL 06/22/17 Rx Avalide 150-12.5 Mg Tablet (Irbesartan/Hydrochlorothiazide) 1 Each Tablet 1 Each PO DAILY 06/19/17 Reported Comments Chest x-ray reviewed 07/23/2021 Left pleural effusion and infiltrate. CT chest dated 07/19/2021 reviewed. Bilateral lung nodules consistent with metastatic disease. Mild to moderate bilateral pleural effusions with associated compressive atelectasis. Chest x-ray reviewed 07/17/2021. Mild progression of interstitial infiltrates and pleural effusion consistent with CHF. There is a skinfold on the left apex unlikely pneumothorax. Impression . Acute respiratory failure multifactorial status post exploratory laparotomy for perforated viscus. Status post tracheostomy 07/24/2021. Septic shock. Back on low-dose Levophed. Fever, per ID. Acute renal failure. History of prostate cancer Severe protein malnutrition present upon admission. 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 Bilateral lung nodules suggestive of metastasis to the lungs. Bilateral moderate pleural effusions with associated atelectasis related to low oncotic pressure. CT chest reviewed dated 07/19/2021 Toxic metabolic encephalopathy, improving Abnormal liver function test. Abnormal chest x-ray. \ Plan . Updated 07/25 Status post tracheostomy 07/24/2021. Re- sedated postprocedure. We will gradually wean sedation and assess for CPAP trial in the next 24 hours. Wean off Levophed. Labs reviewed updated Will proceed with aggressive weaning from next 24 hours. I have talked to patient's son in detail. Continue present aggressive care. Likely transfer to LTAC next week Updated 07/24 Remains on assist control mode with intermittent CPAP trials. Remains tachypneic during CPAP trials with moderate secretions. Scheduled for tracheostomy this afternoon. Labs reviewed updated Appreciate surgery input. Discussed with Dr. Leon. Will proceed with aggressive weaning post tracheostomy. Updated son at the bedside ABG noticed PaO2 of 71 on 40% I have talked to patient's son in detail. Updated 07/23 On pressure support of 16 patient's respiratory rate in the high 20s. Still very weak. He still has moderate secretions. I rested him back on assist control mode. Labs reviewed updated Appreciate surgery input Suspect patient will be extubated in the next 24 to 48 hours Updated son at the bedside ABG noticed PaO2 of 71 on 40% I have talked to patient's son in detail. I did explain to him that patient is weak and becomes tachypneic during CPAP trials. He still has moderate secretions. He may not be able to protect his airway once extubated. He will be better off with a tracheostomy. Son agrees. Critical care time of 30 minutes Updated 07/22 On pressure support of 16 patient's respiratory rate less than 30 I placed him on pressure support of 8 and his respiratory rate harinder to above 36 Will attempt T-tube trial Labs reviewed updated Appreciate surgery input Suspect patient will be extubated in the next 24 to 48 hours Updated son at the bedside ABG noticed PaO2 of 71 on 40% Critical care time of 30 minutes 5/3 Patient more awake alert Currently on pressure support of 16 tidal volume approximately 400 Dropped his pressure support to 5 his tidal volume was only about 250 Off of pressors Continue broad-spectrum antibiotics per ID Labs reviewed ABG noted PO2 of 112 from 5 1 Follow surgery input Discussed with son at the bedside CCT 30 minutes YASMIN WEAVER MD July 25, 2021 09:00
[2021-07-25] MEDS: TPN PER PHARMACY MC PRN (10:48)
--- NOTE | 2021-07-25 10:48 | NUR ---
Pharmacy TPN Dosing Note S: AZEB COOMBS is a 85 year old M Currently receiving Central Continuous TPN started 07/15/21 B:Pertinent PMH: NPO SINCE 07/12, PERFERATED BOWEL Height: 5 feet, 4 inches Weight: 80.6 kg Current diet: NPO LABS: Sodium: 143 Potassium: 4.5 Chloride: 113 Calcium: 6.8 Corrected Calcium: 9.36 Magnesium: 2.0 CO2: 24 SCr: 1.1 Glucose: 114 Albumin: 0.8 AST: 132 ALT: 123 TPN FORMULA: TPN TYPE: Central Continuous AMINO ACIDS: 75 gm DEXTROSE: 210 gm LIPIDS: 30 gm SODIUM CHLORIDE: 40 mEq POTASSIUM ACETATE: 50 mEq POTASSIUM PHOSPHATE: 15 mmol MAGNESIUM: 4 mEq MULTIPLE VITAMIN: 10 ml TRACE ELEMENTS: 1 mL ml(s) TPN PLAN: Continue same. R: Continue TPN Will monitor electrolytes, glucose, and tolerance to TPN. ELIZABETH ALMAGUER [facility], 07/25/21 1040
--- NOTE | 2021-07-25 11:42 | PN ---
DATE: 07/25/2021 SUBJECTIVE: The patient is resting flat in bed, in no apparent distress. He is heavily sedated and on Levophed. He underwent tracheostomy tube placement successfully yesterday. PHYSICAL EXAMINATION: GENERAL: When I saw him today, he looked well, pale, but not jaundiced or cyanosed. No lymphadenopathy, no thyromegaly, no jugular venous distention. Has generalized anasarca. VITAL SIGNS: His heart rate was 65, blood pressure is 113/50, his temperature was 99.3, respiratory rate was 20 and his oxygen saturation was 100% on FiO2 of 40%. HEAD, EYES, EARS, NOSE, AND THROAT: Normocephalic, atraumatic. NECK: Supple, with tracheostomy tube in place. HEART: Showed normal first and second heart sounds. No gallop, rub or murmur. CHEST: Shows central trachea, equal bilateral expansion, air entry, vesicular breath sounds. No crepitation or rhonchi. ABDOMEN: Distended, soft with a midline surgical incision covered with dressing. He has a gastrostomy tube in place as well as duodenostomy in place. NEUROLOGIC: He is heavily sedated. His intake over the last 24 hours was 2200, output was 1550. LABORATORY DATA: As of this morning, his white cell count is down to 14.4, hemoglobin 8.9, hematocrit 27, MCV 88 and platelet count of 430,000. Serum sodium 143, potassium 4.5, chloride 113, bicarbonate 24, anion gap of 6, BUN 40, creatinine 1.1. Estimated GFR was 64 mL per minute. His glucose 114, calcium was 6.8, phosphorus 3.9, magnesium was 2. His total bilirubin is 1. AST, ALT, alkaline phosphatase are slightly risen. His total protein was 4.9, albumin was 0.8. His arterial blood gas this morning showed a pH of 7.46, pCO2 of 27, pO2 of 63, bicarbonate 19 and oxygen saturation was 93% on FiO2 of 40%. ASSESSMENT: 1. Perforated viscus, status post exploratory laparotomy, reduction of the gastric volvulus and hiatal hernia repair with gastrostomy tube placement as well as jejunostomy tube placement. 2. Acute hypoxic respiratory failure for which he continued to be intubated and mechanically ventilated. He has had his tracheostomy tube placed successfully. Yesterday, he is heavily sedated with Versed and fentanyl and on Levophed. He is maintaining his oxygen saturation at 97% on FiO2 of 40%. 3. Hypotension, for which he is on Levophed. 4. Acute kidney injury has improved. His most recent serum creatinine was 1.1 mg/dL. 5. His white cell count has risen up to 19.8 for which we did repeat his blood culture and he is now on meropenem, daptomycin and linezolid. CT scan of the abdomen showed that he has what seemed to be an abscess in the right upper quadrant in front of the left hepatic lobe. His white cell count is down today to 14.4. 6. His liver enzymes are trending upward again. 7. He has severe protein-calorie malnutrition. Serum albumin is only 0.8 g/dL. 8. He has metastatic melanoma, for which he was seen by the oncologist, but no plans for any treatment for now as long as he is still on mechanical ventilation and IV antibiotic. 9. He has multiple preexisting conditions including: A. Hypertension. B. Hiatal hernia. C. Gastroesophageal reflux disease. D. Gastric ulcer. E. Chronic constipation. PLAN: To continue with mechanical ventilation. Continue with sedation for now. Continue with Levophed. Continue with TPN and IV antibiotic. Once he stabilized, he can probably be transferred to [facility] on Tuesday. PETEY/ASHWIN DR: PETEY/leighann TID: [id number]
--- NOTE | 2021-07-25 12:21 | PDOC ---
Infectious Disease Note Subjective Subjective Pt is intubated on vent Arousable afebrile last 24 hrs ROS ROS No nausea vomiting Vital Sign Vital Signs Vital Signs Date Time Temp Pulse Resp B/P (MAP) Pulse Ox O2 Delivery O2 Flow Rate FiO2 07/25/21 11:12 100 Ventilator 07/25/21 11:00 81 20 116/45 07/25/21 08:00 99.8 99.8 07/24/21 16:14 2.0 Physical Exam PHYSICAL EXAM GENERAL: , Tracheostomy on ventilator HEENT: Both pupils are round and reacting. No conjunctival lesion. No lesion in the mouth. Mouth cannot be visualized much as orally intubated. LUNGS: . Decreased breath sounds. HEART: S1, S2 regular. No murmur. ABDOMEN: Multiple tubes in the post-surgical dressing not opened. scrotal swelling, conway in place EXTREMITIES: No cyanosis, generalized edema SKIN: No generalized rash NEUROLOGIC: opens eyes, Labs Lab Laboratory Tests Test 07/25/21 04:55 07/25/21 07:18 White Blood Count 14.4 x10^3/uL (4.0-11.0) Red Blood Count 3.06 x10^6/uL (4.30-5.70) Hemoglobin 8.9 g/dL (13.0-17.5) Hematocrit 27.0 % (39.0-53.0) Mean Corpuscular Volume 88 fL (79-100) Mean Corpuscular Hemoglobin 29 pg (25-35) Mean Corpuscular Hemoglobin Concent 33 g/dL (31-37) Red Cell Distribution Width 16.7 % (11.5-14.5) Platelet Count 430 x10^3/uL (140-400) Sodium Level 143 mmol/L (136-145) Potassium Level 4.5 mmol/L (3.5-5.1) Chloride Level 113 mmol/L (98-107) Carbon Dioxide Level 24 mmol/L (21-32) Anion Gap 6 (6-14) Blood Urea Nitrogen 40 mg/dL (8-26) Creatinine 1.1 mg/dL (0.7-1.3) Estimated GFR (Cockcroft-Gault) 63.6 BUN/Creatinine Ratio 36 (6-20) Glucose Level 114 mg/dL (70-99) Calcium Level 6.8 mg/dL (8.5-10.1) Phosphorus Level 3.9 mg/dL (2.6-4.7) Magnesium Level 2.0 mg/dL (1.8-2.4) Total Bilirubin 1.0 mg/dL (0.2-1.0) Aspartate Amino Transf (AST/SGOT) 132 U/L (15-37) Alanine Aminotransferase (ALT/SGPT) 123 U/L (16-63) Alkaline Phosphatase 246 U/L (46-116) Creatine Kinase 25 U/L (39-308) Total Protein 4.9 g/dL (6.4-8.2) Albumin 0.8 g/dL (3.4-5.0) Albumin/Globulin Ratio 0.2 (1.0-1.7) O2 Saturation 93 % (92-99) Arterial Blood pH 7.46 (7.35-7.45) Arterial Blood pCO2 at Patient Temp 27 mmHg (35-46) Arterial Blood pO2 at Patient Temp 63 mmHg (65-108) Arterial Blood HCO3 19 mmol/L (21-28) Arterial Blood Base Excess -4 mmol/L (-3-3) FiO2 40% vent Micro Microbiology 07/19/21 Respiratory Culture Gram Stain - Final, Complete 07/19/21 Respiratory Culture - Final, Complete Elda Albicans Elda Glabrata 07/18/21 Blood Culture - Final, Complete NO GROWTH AFTER 5 DAYS Objective Assessment 1. Perforated viscus, status post exploratory laparotomy, reduction of gastric volvulus, hiatal hernia repair, gastrostomy tube placement and duodenoscopy with tube placement done. 2. Hypotension, requiring vasopressor support. 3. Respiratory failure, requiring ventilatory support. Pleural effusion and pulm infiltrate 4. Renal failure. 5. History of prostate cancer. path + with melanoma 6. Pneumonia 7. CT abdomen and pelvis with intraabdominal fluid collection could be abscess, not a candidate for IR drainage Plan Plan of Care Merrem , daptomycin and Zyvox Monitor labs and cultures F/U BC 07/18 CT C/A/P reviewed Gen surgery following Patient is not a candidate for IR drainage at this time cont supportive care Critically ill Prognosis very poor consider palliative care Awaiting trach today Discussed with NYLA LAYNE MD July 25, 2021 12:21
--- NOTE | 2021-07-25 19:00 | NUR ---
Tried to wean off patient from versed drip but patient moves, wakes up easily and cough. Restarted at 1mg/hr. See titratable medication/IV spreadsheet.
[2021-07-25] MEDS: DAPTOmycin (GENERIC) IVPB 450 MG in IV NORMAL SALINE 50ML 50 ML IV SCH (20:10)
[2021-07-25] MEDS: FAMOTIDINE 20 MG/2 ML VIAL IVP SCH (20:49)
[2021-07-25] MEDS ORDERED: [UNRECOGNIZED DRUG - OTHER] IV SCH (22:00)
[2021-07-25] MEDS ORDERED: DEXTROSE IV SCH (22:00)
[2021-07-25] MEDS ORDERED: AMINO ACID IV SCH (22:00)
[2021-07-25] MEDS ORDERED: TOTAL PARENTERAL NUTRITION IV SCH (22:00)
[2021-07-26] VITALS (24 sets, daily range): BP systolic 92–148; BP diastolic 46–74
[2021-07-26] MEDS: MEROPENEM 500 MG in IV NORMAL SALINE 50ML 50 ML IV SCH ×3 (05:47→21:59)
[2021-07-26 07:04] LABS: ALBUMIN 0.8 g/dL (3.4-5.0); ALBUMIN/GLOBULIN RATIO 0.2 (1.0-1.7); CALCIUM 7.3 mg/dL (8.5-10.1); CREATININE 1.3 mg/dL (0.7-1.3); GFR 52.5; TOTAL BILIRUBIN 0.8 mg/dL (0.2-1.0); TOTAL PROTEIN 5.1 g/dL (6.4-8.2)
[2021-07-26 07:34] LABS: BASE EXCESS ABG -4 mmol/L (-3-3); HCO3 ABG 21 mmol/L (21-28); PCO2 ABG 34 mmHg (35-46); PO2 ABG 65 mmHg (65-108); SAT O2 ABG 92 % (92-99)
[2021-07-26] MEDS ORDERED: IV NORMAL SALINE 500ML BAG 500 ML IV ONE (07:45)
--- NOTE | 2021-07-26 08:18 | PN ---
DATE: 07/26/2021 SUBJECTIVE: The patient continued to be sedated on mechanical ventilation. His oxygen requirement for some reason has increased to 60% yesterday and this morning he is now on FiO2 of 50%, maintaining his oxygen saturation at 93%. PHYSICAL EXAMINATION: GENERAL: When I examined him, he looked pale, not jaundiced or cyanosed. No lymphadenopathy, no thyromegaly, no jugular venous distention, but mild generalized anasarca. VITAL SIGNS: His heart rate was 79, blood pressure was 110/50, temperature was 98.3, respiratory rate was 21, oxygen saturation was 93% on FiO2 of 50%. HEAD, EYES, EARS, NOSE, AND THROAT: Normocephalic, atraumatic. NECK: Supple with tracheostomy tube in place. HEART: Showed normal first and second heart sounds. No gallop, rub or murmur. CHEST: Shows central trachea, equal bilateral chest expansion, air entry, vesicular breath sounds. I could not appreciate any crepitation or rhonchi anteriorly. ABDOMEN: Distended, soft with a midline surgical incision. He has gastrostomy tube in place as well as jejunostomy. Bowel sounds are normal. NEUROLOGIC: Heavily sedated. His intake over the last 24 hours was 2200, output was 1200. LABORATORY DATA: As of this morning, his serum sodium was 141, potassium 5, chloride 111, bicarbonate 24, anion gap of 6, BUN 43, creatinine 1.3. Estimated GFR was 52 mL per minute. Her glucose 124, calcium was 7.3. His total bilirubin is normal. AST, ALT, alkaline phosphatase are elevated, but trending down. Total protein 5.1, albumin 8. ASSESSMENT: 1. Perforated viscus, status post exploratory laparotomy, reduction of the gastric volvulus and hiatal hernia repair, gastrostomy tube placement as well as jejunostomy tube placement. 2. Acute hypoxic respiratory failure, for which he continued to be intubated and mechanically ventilated. He has had a tracheostomy tube placed successfully. He continues to be heavily sedated with Versed and fentanyl and he is also on Levophed. He is now maintaining his oxygen saturation at 93% on FiO2 of 50%. 3. Hypertension, which he is on Levophed. 4. Acute kidney injury has improved; however, his creatinine is inching up, today is 1.3 mg/dL. 5. His white cell count was high at 19.8 with repeat blood culture. He is now on meropenem, daptomycin and linezolid. CT scan of the abdomen showed he has what seemed to be an abscess in the right upper quadrant in front of the left hepatic lobe. White cell count is trending down. 6. His liver enzymes are trending down, although they continue to be slightly elevated. 7. He has severe protein-calorie malnutrition. Serum albumin is only 0.8 g/dL. 8. He has metastatic melanoma, for which he was seen by the oncologist; however, no plans for any treatment for now. 9. He has multiple preexisting conditions including: A. Hypertension. B. Hiatal hernia. C. Gastroesophageal reflux disease. B. Gastric ulcer. E. Chronic constipation. PLAN: To continue with mechanical ventilation and wean as tolerated. Continue with TPN. Continue with IV antibiotic. Once stabilized, he can be transferred to [facility] if and when the insurance authorized that. ALTHEA DR: Marta TID: [id number]
--- NOTE | 2021-07-26 08:57 | PDOC ---
PULMONARY PROGRESS NOTES DATE: 07/26/21 TIME: 08:54 Subjective Status post tracheostomy 07/24/2021. Remains on assist control mode. Versed discontinued yesterday afternoon. Currently on fentanyl 50 mics an hour. Not awake. Oxygen requirement increased up to 50%. Vitals Vital Signs Date Time Temp Pulse Resp B/P (MAP) Pulse Ox O2 Delivery O2 Flow Rate FiO2 07/26/21 08:17 99 Ventilator 07/26/21 08:00 81 22 122/49 07/26/21 04:00 98.3 98.3 07/26/21 00:44 2.0 Lungs: Clear Cardiovascular: S1, S2 Abdomen: Soft, Other (Distended) Extremities: Other (Significant scrotal edema.) Skin: Warm Labs Laboratory Tests Test 07/25/21 04:55 07/25/21 07:18 07/25/21 13:16 07/25/21 18:55 White Blood Count 14.4 x10^3/uL (4.0-11.0) Red Blood Count 3.06 x10^6/uL (4.30-5.70) Hemoglobin 8.9 g/dL (13.0-17.5) Hematocrit 27.0 % (39.0-53.0) Mean Corpuscular Volume 88 fL (79-100) Mean Corpuscular Hemoglobin 29 pg (25-35) Mean Corpuscular Hemoglobin Concent 33 g/dL (31-37) Red Cell Distribution Width 16.7 % (11.5-14.5) Platelet Count 430 x10^3/uL (140-400) Sodium Level 143 mmol/L (136-145) Potassium Level 4.5 mmol/L (3.5-5.1) Chloride Level 113 mmol/L (98-107) Carbon Dioxide Level 24 mmol/L (21-32) Anion Gap 6 (6-14) Blood Urea Nitrogen 40 mg/dL (8-26) Creatinine 1.1 mg/dL (0.7-1.3) Estimated GFR (Cockcroft-Gault) 63.6 BUN/Creatinine Ratio 36 (6-20) Glucose Level 114 mg/dL (70-99) Calcium Level 6.8 mg/dL (8.5-10.1) Phosphorus Level 3.9 mg/dL (2.6-4.7) Magnesium Level 2.0 mg/dL (1.8-2.4) Total Bilirubin 1.0 mg/dL (0.2-1.0) Aspartate Amino Transf (AST/SGOT) 132 U/L (15-37) Alanine Aminotransferase (ALT/SGPT) 123 U/L (16-63) Alkaline Phosphatase 246 U/L (46-116) Creatine Kinase 25 U/L (39-308) Total Protein 4.9 g/dL (6.4-8.2) Albumin 0.8 g/dL (3.4-5.0) Albumin/Globulin Ratio 0.2 (1.0-1.7) O2 Saturation 93 % (92-99) Arterial Blood pH 7.46 (7.35-7.45) Arterial Blood pCO2 at Patient Temp 27 mmHg (35-46) Arterial Blood pO2 at Patient Temp 63 mmHg (65-108) Arterial Blood HCO3 19 mmol/L (21-28) Arterial Blood Base Excess -4 mmol/L (-3-3) FiO2 40% vent Glucose (Fingerstick) 118 mg/dL (70-99) 118 mg/dL (70-99) Test 07/26/21 06:30 07/26/21 07:32 Sodium Level 141 mmol/L (136-145) Potassium Level 5.0 mmol/L (3.5-5.1) Chloride Level 111 mmol/L (98-107) Carbon Dioxide Level 24 mmol/L (21-32) Anion Gap 6 (6-14) Blood Urea Nitrogen 43 mg/dL (8-26) Creatinine 1.3 mg/dL (0.7-1.3) Estimated GFR (Cockcroft-Gault) 52.5 BUN/Creatinine Ratio 33 (6-20) Glucose Level 124 mg/dL (70-99) Calcium Level 7.3 mg/dL (8.5-10.1) Total Bilirubin 0.8 mg/dL (0.2-1.0) Aspartate Amino Transf (AST/SGOT) 81 U/L (15-37) Alanine Aminotransferase (ALT/SGPT) 83 U/L (16-63) Alkaline Phosphatase 239 U/L (46-116) Total Protein 5.1 g/dL (6.4-8.2) Albumin 0.8 g/dL (3.4-5.0) Albumin/Globulin Ratio 0.2 (1.0-1.7) O2 Saturation 92 % (92-99) Arterial Blood pH 7.40 (7.35-7.45) Arterial Blood pCO2 at Patient Temp 34 mmHg (35-46) Arterial Blood pO2 at Patient Temp 65 mmHg (65-108) Arterial Blood HCO3 21 mmol/L (21-28) Arterial Blood Base Excess -4 mmol/L (-3-3) FiO2 50% vent Laboratory Tests Test 07/25/21 13:16 07/25/21 18:55 07/26/21 06:30 07/26/21 07:32 Glucose (Fingerstick) 118 mg/dL (70-99) 118 mg/dL (70-99) Sodium Level 141 mmol/L (136-145) Potassium Level 5.0 mmol/L (3.5-5.1) Chloride Level 111 mmol/L (98-107) Carbon Dioxide Level 24 mmol/L (21-32) Anion Gap 6 (6-14) Blood Urea Nitrogen 43 mg/dL (8-26) Creatinine 1.3 mg/dL (0.7-1.3) Estimated GFR (Cockcroft-Gault) 52.5 BUN/Creatinine Ratio 33 (6-20) Glucose Level 124 mg/dL (70-99) Calcium Level 7.3 mg/dL (8.5-10.1) Total Bilirubin 0.8 mg/dL (0.2-1.0) Aspartate Amino Transf (AST/SGOT) 81 U/L (15-37) Alanine Aminotransferase (ALT/SGPT) 83 U/L (16-63) Alkaline Phosphatase 239 U/L (46-116) Total Protein 5.1 g/dL (6.4-8.2) Albumin 0.8 g/dL (3.4-5.0) Albumin/Globulin Ratio 0.2 (1.0-1.7) O2 Saturation 92 % (92-99) Arterial Blood pH 7.40 (7.35-7.45) Arterial Blood pCO2 at Patient Temp 34 mmHg (35-46) Arterial Blood pO2 at Patient Temp 65 mmHg (65-108) Arterial Blood HCO3 21 mmol/L (21-28) Arterial Blood Base Excess -4 mmol/L (-3-3) FiO2 50% vent Medications Active Scripts Medications Dose Route/Sig Max Daily Dose Days Date Category [Pantoprazole] 40 MG Tablet.dr 40 Mg PO BIDBFRMEAL 06/22/17 Rx Carafate (Sucralfate) 1 Gm/10 Ml Oral.susp 1 Gm PO TIDBFRMEAL 06/22/17 Rx Avalide 150-12.5 Mg Tablet (Irbesartan/Hydrochlorothiazide) 1 Each Tablet 1 Each PO DAILY 06/19/17 Reported Comments Chest x-ray reviewed 07/23/2021 Left pleural effusion and infiltrate. CT chest dated 07/19/2021 reviewed. Bilateral lung nodules consistent with metastatic disease. Mild to moderate bilateral pleural effusions with associated compressive atelectasis. Chest x-ray reviewed 07/17/2021. Mild progression of interstitial infiltrates and pleural effusion consistent with CHF. There is a skinfold on the left apex unlikely pneumothorax. Impression . Acute respiratory failure multifactorial status post exploratory laparotomy for perforated viscus. Status post tracheostomy 07/24/2021. Septic shock. Of Levophed. Oxygen requirement increased to 50%. We will repeat chest x-ray and give extra Lasix today. Fever, per ID. Acute renal failure. History of prostate cancer Severe protein malnutrition present upon admission. 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 Bilateral lung nodules suggestive of metastasis to the lungs. Bilateral moderate pleural effusions with associated atelectasis related to low oncotic pressure. CT chest reviewed dated 07/19/2021 Toxic metabolic encephalopathy, improving Abnormal liver function test. Abnormal chest x-ray. \ Plan . Updated 07/26 Status post tracheostomy 07/24/2021. Re- sedated postprocedure. Now off Versed but on a fentanyl drip. Not fully awake. Will discontinue fentanyl drip and use as needed. We will gradually wean sedation and assess for CPAP trial. off Levophed. Repeat chest x-ray in a.m. Extra IV Lasix today. I have talked to patient's son in detail. Continue present aggressive care. Likely transfer to LTAC next week Updated 07/25 Status post tracheostomy 07/24/2021. Re- sedated postprocedure. We will gradually wean sedation and assess for CPAP trial in the next 24 hours. Wean off Levophed. Labs reviewed updated Will proceed with aggressive weaning from next 24 hours. I have talked to patient's son in detail. Continue present aggressive care. Likely transfer to LTAC next week YASMIN WEAVER MD July 26, 2021 08:57
[2021-07-26] MEDS ORDERED: FUROSEMIDE 20 MG/2 ML VIAL. IVP ONE (09:00)
[2021-07-26 10:18] LABS: MAGNESIUM 2.1 mg/dL (1.8-2.4); PHOSPHORUS 4.5 mg/dL (2.6-4.7)
--- NOTE | 2021-07-26 10:20 | PDOC ---
Infectious Disease Note Subjective: Subjective Pt is intubated on vent Discussed with RN at bedside Vital Signs: Vital Signs Vital Signs Date Time Temp Pulse Resp B/P (MAP) Pulse Ox O2 Delivery O2 Flow Rate FiO2 07/26/21 10:00 84 24 129/59 99 Ventilator 07/26/21 04:00 98.3 98.3 07/26/21 00:44 2.0 Physical Exam: PHYSICAL EXAM GENERAL: Sedated, tracheostomy on ventilator HEENT: Normocephalic atraumatic anicteric NECK trach present LUNGS: . Decreased breath sounds. HEART: S1, S2 regular. No murmur. ABDOMEN: Multiple tubes in the post-surgical dressing not opened. scrotal swelling, conway in place EXTREMITIES: No cyanosis, generalized edema SKIN: No generalized rash NEUROLOGIC: Sedated Medications: Inpatient Meds: Medications reviewed. Labs: Lab Laboratory Tests Test 07/25/21 13:16 07/25/21 18:55 07/26/21 06:30 07/26/21 07:32 Glucose (Fingerstick) 118 mg/dL (70-99) 118 mg/dL (70-99) Sodium Level 141 mmol/L (136-145) Potassium Level 5.0 mmol/L (3.5-5.1) Chloride Level 111 mmol/L (98-107) Carbon Dioxide Level 24 mmol/L (21-32) Anion Gap 6 (6-14) Blood Urea Nitrogen 43 mg/dL (8-26) Creatinine 1.3 mg/dL (0.7-1.3) Estimated GFR (Cockcroft-Gault) 52.5 BUN/Creatinine Ratio 33 (6-20) Glucose Level 124 mg/dL (70-99) Calcium Level 7.3 mg/dL (8.5-10.1) Total Bilirubin 0.8 mg/dL (0.2-1.0) Aspartate Amino Transf (AST/SGOT) 81 U/L (15-37) Alanine Aminotransferase (ALT/SGPT) 83 U/L (16-63) Alkaline Phosphatase 239 U/L (46-116) Total Protein 5.1 g/dL (6.4-8.2) Albumin 0.8 g/dL (3.4-5.0) Albumin/Globulin Ratio 0.2 (1.0-1.7) O2 Saturation 92 % (92-99) Arterial Blood pH 7.40 (7.35-7.45) Arterial Blood pCO2 at Patient Temp 34 mmHg (35-46) Arterial Blood pO2 at Patient Temp 65 mmHg (65-108) Arterial Blood HCO3 21 mmol/L (21-28) Arterial Blood Base Excess -4 mmol/L (-3-3) FiO2 50% vent Objective: Assessment: 1. Perforated viscus, status post exploratory laparotomy, reduction of gastric volvulus, hiatal hernia repair, gastrostomy tube placement and duodenoscopy with tube placement done. 2. Hypotension, requiring vasopressor support. 3. Respiratory failure, requiring ventilatory support. Pleural effusion and pulm infiltrate 4. Renal failure. 5. History of prostate cancer. path + with melanoma 6. Pneumonia 7. CT abdomen and pelvis with intraabdominal fluid collection could be abscess, not a candidate for IR drainage Plan: Plan of Care Merrem ,Zyvox DC Zyvox Monitor labs and cultures F/U BC 07/[address] C/A/P reviewed Gen surgery following Patient is not a candidate for IR drainage at this time cont supportive care Critically ill Prognosis very poor consider palliative care Status post trach Discussed with MARISOL LAYNE MD July 26, 2021 10:19
[2021-07-26] MEDS: TPN PER PHARMACY MC PRN (13:09)
--- NOTE | 2021-07-26 13:10 | NUR ---
Pharmacy TPN Dosing Note S: AZEB COOMBS is a 85 year old M Currently receiving Central Continuous TPN started 07/15/21 B:Pertinent PMH: NPO SINCE 07/12, PERFERATED BOWEL Height: 5 feet, 4 inches Weight: 80.6 kg Current diet: NPO LABS: Sodium: 141 Potassium: 5.0 Chloride: 111 Calcium: 7.3 Corrected Calcium: 9.86 Magnesium: 2.1 CO2: 24 SCr: 1.3 Glucose: 124 Albumin: 0.8 AST: 132 ALT: 123 TPN FORMULA: TPN TYPE: Central Continuous AMINO ACIDS: 75 gm DEXTROSE: 210 gm LIPIDS: 30 gm SODIUM CHLORIDE: 40 mEq POTASSIUM ACETATE: 40 mEq POTASSIUM PHOSPHATE: 10 mmol MAGNESIUM: 4 mEq MULTIPLE VITAMIN: 10 ml TRACE ELEMENTS: 1 mL ml(s) TPN PLAN: Continue same. R: Continue TPN Will monitor electrolytes, glucose, and tolerance to TPN. ELIZABETH ALMAGUER [place], 07/26/21 1310
--- NOTE | 2021-07-26 13:18 | PDOC ---
SURGICAL PROGRESS NOTE DATE: 07/26/21 TIME: 13:16 Subjective Pt intubated and sedated Vital Signs Vital Signs Date Time Temp Pulse Resp B/P (MAP) Pulse Ox O2 Delivery O2 Flow Rate FiO2 07/26/21 13:00 88 24 134/61 100 Ventilator 07/26/21 12:00 98.3 98.3 07/26/21 00:44 2.0 I&O Intake and Output 07/26/21 07:00 Intake Total 1388.74 ml Output Total 1135 ml Balance 253.74 ml IV Total 1388.74 ml Output Urine Total 955 ml Drainage Total 180 ml PATIENT HAS A PEDRO: Yes (accurate i and os) General: No acute distress HEENT: Other (trach intact) Abdomen: Soft, No tenderness, Other (tubes in place, dressing intact) Labs Laboratory Tests Test 07/25/21 04:55 07/25/21 07:18 07/25/21 13:16 07/25/21 18:55 White Blood Count 14.4 x10^3/uL (4.0-11.0) Red Blood Count 3.06 x10^6/uL (4.30-5.70) Hemoglobin 8.9 g/dL (13.0-17.5) Hematocrit 27.0 % (39.0-53.0) Mean Corpuscular Volume 88 fL (79-100) Mean Corpuscular Hemoglobin 29 pg (25-35) Mean Corpuscular Hemoglobin Concent 33 g/dL (31-37) Red Cell Distribution Width 16.7 % (11.5-14.5) Platelet Count 430 x10^3/uL (140-400) Sodium Level 143 mmol/L (136-145) Potassium Level 4.5 mmol/L (3.5-5.1) Chloride Level 113 mmol/L (98-107) Carbon Dioxide Level 24 mmol/L (21-32) Anion Gap 6 (6-14) Blood Urea Nitrogen 40 mg/dL (8-26) Creatinine 1.1 mg/dL (0.7-1.3) Estimated GFR (Cockcroft-Gault) 63.6 BUN/Creatinine Ratio 36 (6-20) Glucose Level 114 mg/dL (70-99) Calcium Level 6.8 mg/dL (8.5-10.1) Phosphorus Level 3.9 mg/dL (2.6-4.7) Magnesium Level 2.0 mg/dL (1.8-2.4) Total Bilirubin 1.0 mg/dL (0.2-1.0) Aspartate Amino Transf (AST/SGOT) 132 U/L (15-37) Alanine Aminotransferase (ALT/SGPT) 123 U/L (16-63) Alkaline Phosphatase 246 U/L (46-116) Creatine Kinase 25 U/L (39-308) Total Protein 4.9 g/dL (6.4-8.2) Albumin 0.8 g/dL (3.4-5.0) Albumin/Globulin Ratio 0.2 (1.0-1.7) O2 Saturation 93 % (92-99) Arterial Blood pH 7.46 (7.35-7.45) Arterial Blood pCO2 at Patient Temp 27 mmHg (35-46) Arterial Blood pO2 at Patient Temp 63 mmHg (65-108) Arterial Blood HCO3 19 mmol/L (21-28) Arterial Blood Base Excess -4 mmol/L (-3-3) FiO2 40% vent Glucose (Fingerstick) 118 mg/dL (70-99) 118 mg/dL (70-99) Test 07/26/21 06:30 07/26/21 07:32 07/26/21 12:23 Sodium Level 141 mmol/L (136-145) Potassium Level 5.0 mmol/L (3.5-5.1) Chloride Level 111 mmol/L (98-107) Carbon Dioxide Level 24 mmol/L (21-32) Anion Gap 6 (6-14) Blood Urea Nitrogen 43 mg/dL (8-26) Creatinine 1.3 mg/dL (0.7-1.3) Estimated GFR (Cockcroft-Gault) 52.5 BUN/Creatinine Ratio 33 (6-20) Glucose Level 124 mg/dL (70-99) Calcium Level 7.3 mg/dL (8.5-10.1) Phosphorus Level 4.5 mg/dL (2.6-4.7) Magnesium Level 2.1 mg/dL (1.8-2.4) Total Bilirubin 0.8 mg/dL (0.2-1.0) Aspartate Amino Transf (AST/SGOT) 81 U/L (15-37) Alanine Aminotransferase (ALT/SGPT) 83 U/L (16-63) Alkaline Phosphatase 239 U/L (46-116) Total Protein 5.1 g/dL (6.4-8.2) Albumin 0.8 g/dL (3.4-5.0) Albumin/Globulin Ratio 0.2 (1.0-1.7) O2 Saturation 92 % (92-99) Arterial Blood pH 7.40 (7.35-7.45) Arterial Blood pCO2 at Patient Temp 34 mmHg (35-46) Arterial Blood pO2 at Patient Temp 65 mmHg (65-108) Arterial Blood HCO3 21 mmol/L (21-28) Arterial Blood Base Excess -4 mmol/L (-3-3) FiO2 50% vent Glucose (Fingerstick) 139 mg/dL (70-99) Laboratory Tests Test 07/25/21 18:55 07/26/21 06:30 07/26/21 07:32 07/26/21 12:23 Glucose (Fingerstick) 118 mg/dL (70-99) 139 mg/dL (70-99) Sodium Level 141 mmol/L (136-145) Potassium Level 5.0 mmol/L (3.5-5.1) Chloride Level 111 mmol/L (98-107) Carbon Dioxide Level 24 mmol/L (21-32) Anion Gap 6 (6-14) Blood Urea Nitrogen 43 mg/dL (8-26) Creatinine 1.3 mg/dL (0.7-1.3) Estimated GFR (Cockcroft-Gault) 52.5 BUN/Creatinine Ratio 33 (6-20) Glucose Level 124 mg/dL (70-99) Calcium Level 7.3 mg/dL (8.5-10.1) Phosphorus Level 4.5 mg/dL (2.6-4.7) Magnesium Level 2.1 mg/dL (1.8-2.4) Total Bilirubin 0.8 mg/dL (0.2-1.0) Aspartate Amino Transf (AST/SGOT) 81 U/L (15-37) Alanine Aminotransferase (ALT/SGPT) 83 U/L (16-63) Alkaline Phosphatase 239 U/L (46-116) Total Protein 5.1 g/dL (6.4-8.2) Albumin 0.8 g/dL (3.4-5.0) Albumin/Globulin Ratio 0.2 (1.0-1.7) O2 Saturation 92 % (92-99) Arterial Blood pH 7.40 (7.35-7.45) Arterial Blood pCO2 at Patient Temp 34 mmHg (35-46) Arterial Blood pO2 at Patient Temp 65 mmHg (65-108) Arterial Blood HCO3 21 mmol/L (21-28) Arterial Blood Base Excess -4 mmol/L (-3-3) FiO2 50% vent Assessment/Plan s/p xlap cont supportive care Justicifation of Admission Dx: Justifications for Admission: Justification of Admission Dx: Yes Sepsis: Hemodynamic Instability STEVEN ZENDEJAS MD July 26, 2021 13:18
--- NOTE | 2021-07-26 17:02 | NUR ---
Dr. Puckett aware that patient's lovenox hasn't been restarted since tracheostomy procedure. Noted that patient is on SCDs.
[2021-07-26] MEDS: FAMOTIDINE 20 MG/2 ML VIAL IVP SCH (20:41)
[2021-07-26] MEDS ORDERED: [UNRECOGNIZED DRUG - OTHER] IV SCH (22:00)
[2021-07-26] MEDS ORDERED: AMINO ACID IV SCH ×2 (22:00)
[2021-07-26] MEDS ORDERED: [UNRECOGNIZED DRUG - OTHER] IV SCH (22:00)
[2021-07-26] MEDS ORDERED: DEXTROSE IV SCH (22:00)
[2021-07-26] MEDS ORDERED: TOTAL PARENTERAL NUTRITION IV SCH ×2 (22:00)
[2021-07-26] MEDS ORDERED: DEXTROSE 70% IV SCH (22:00)
[2021-07-27] VITALS (24 sets, daily range): BP systolic 48–158; BP diastolic 53–77
--- NOTE | 2021-07-27 05:23 | RAD ---
XR CHEST 1V Clinical Indication: Reason: RF ;INCREASED DISTRESS / Spl. Instructions: / History: Comparison: AP chest July 23, 2021. Findings: Since the prior study the endotracheal tube has been removed and replaced with tracheostomy, in appro priate position. Left subclavian central line is stable. There is now complete opacification of the left hemithorax. Cannot accurately evaluate the mediastinu m. There is increased airspace disease in the right lung base. Interstitial markings in the right екатерина g are increased but unchanged. No pneumothorax is seen. There is left pleural effusion, seen previous ly. Redemonstrated arthropathy of the right shoulder. IMPRESSION: 1. New tracheostomy. 2. There is now complete opacification of the left hemithorax. There is left lung volume loss. There is left pleural effusion. 3. There are increased airspace opacities in the right lung base. Electronically signed by: Bipin Sanchez MD (07/27/2021 5:20 AM) [facility]
[2021-07-27 05:38] LABS: BASO # 0.1 x10^3/uL (0.0-0.2); BASO % 0 % (0-3); EOS # 0.1 x10^3/uL (0.0-0.7); EOS % 0 % (0-3); HEMATOCRIT 29.2 % (39.0-53.0); HEMOGLOBIN 9.5 g/dL (13.0-17.5); LYMPH # 0.7 x10^3/uL (1.0-4.8); LYMPH % 4 % (24-48); MEAN CORPUSCULAR HEMOGLOBIN 29 pg (25-35); MEAN CORPUSCULAR HGB CONC 33 g/dL (31-37); MEAN CORPUSCULAR VOLUME 88 fL (79-100); MONO # 1.4 x10^3/uL (0.0-1.1); MONO % 9 % (0-9); NEUT # 14.7 x10^3/uL (1.8-7.7); NEUT % 87 % (31-73); PLATELET COUNT 376 x10^3/uL (140-400); RED CELL DISTRIBUTION WIDTH 16.8 % (11.5-14.5); WHITE BLOOD COUNT 16.9 x10^3/uL (4.0-11.0)
[2021-07-27] MEDS: MEROPENEM 500 MG in IV NORMAL SALINE 50ML 50 ML IV SCH ×3 (05:42→21:57)
[2021-07-27 05:56] LABS: CALCIUM 7.2 mg/dL (8.5-10.1); MAGNESIUM 2.1 mg/dL (1.8-2.4); PHOSPHORUS 4.2 mg/dL (2.6-4.7); POTASSIUM 4.8 mmol/L (3.5-5.1)
[2021-07-27 07:56] LABS: BASE EXCESS ABG -3 mmol/L (-3-3); HCO3 ABG 20 mmol/L (21-28); PCO2 ABG 28 mmHg (35-46); PO2 ABG 83 mmHg (65-108); SAT O2 ABG 96 % (92-99)
[2021-07-27 07:58] LABS: FIO2 ABG 40
--- NOTE | 2021-07-27 08:29 | PDOC ---
PROGRESS NOTES Date of Service DATE: 07/27/21 TIME: 08:28 Assessment Metabolic encephalopathy, may have had some anoxia? Perforated viscus, status-post exploratory laparotomy, gastrotomy tube placement , hernia repair surgery, respiratory failure, hypotension requiring vasopressors, sepsis, acute kidney injury, abnormal liver function tests, history of prostrate cancer anoxic encephalopathy. History of hypertension, hiatal hernia, gastroesophageal reflux disease, gastric ulcer, constipation Prostate cancer and melanoma, metastatic S/P trache Plan Holding off on additional studies Subjective None Objective Vital Signs Date Time Temp Pulse Resp B/P (MAP) Pulse Ox O2 Delivery O2 Flow Rate FiO2 07/27/21 07:41 100 Ventilator 07/27/21 07:00 87 23 141/62 07/27/21 04:00 99.8 99.8 Intake and Output 07/27/21 07:00 Intake Total 2495.6 ml Output Total 2410 ml Balance 85.6 ml IV Total 2495.6 ml Output Urine Total 1930 ml Drainage Total 480 ml # Bowel Movements 2 PHYSICAL EXAM Sleepy, moves to command, still on ventilator. Trached PERRL. EOMI. CN: no focal findings. Muscle tone: normal. Muscle strength: 1/5 DTR: 0+ Plantar reflex: Silent Gait: not examined in bed. Sensory exam: no abnormal findings. No cerebellar signs elicited. Review of Relevant I have reviewed the following items joanne (where applicable) has been applied. Labs Laboratory Tests Test 07/25/21 13:16 07/25/21 18:55 07/26/21 06:30 07/26/21 07:32 Glucose (Fingerstick) 118 mg/dL (70-99) 118 mg/dL (70-99) Sodium Level 141 mmol/L (136-145) Potassium Level 5.0 mmol/L (3.5-5.1) Chloride Level 111 mmol/L (98-107) Carbon Dioxide Level 24 mmol/L (21-32) Anion Gap 6 (6-14) Blood Urea Nitrogen 43 mg/dL (8-26) Creatinine 1.3 mg/dL (0.7-1.3) Estimated GFR (Cockcroft-Gault) 52.5 BUN/Creatinine Ratio 33 (6-20) Glucose Level 124 mg/dL (70-99) Calcium Level 7.3 mg/dL (8.5-10.1) Phosphorus Level 4.5 mg/dL (2.6-4.7) Magnesium Level 2.1 mg/dL (1.8-2.4) Total Bilirubin 0.8 mg/dL (0.2-1.0) Aspartate Amino Transf (AST/SGOT) 81 U/L (15-37) Alanine Aminotransferase (ALT/SGPT) 83 U/L (16-63) Alkaline Phosphatase 239 U/L (46-116) Total Protein 5.1 g/dL (6.4-8.2) Albumin 0.8 g/dL (3.4-5.0) Albumin/Globulin Ratio 0.2 (1.0-1.7) O2 Saturation 92 % (92-99) Arterial Blood pH 7.40 (7.35-7.45) Arterial Blood pCO2 at Patient Temp 34 mmHg (35-46) Arterial Blood pO2 at Patient Temp 65 mmHg (65-108) Arterial Blood HCO3 21 mmol/L (21-28) Arterial Blood Base Excess -4 mmol/L (-3-3) FiO2 50% vent Test 07/26/21 12:23 07/26/21 17:31 07/26/21 23:48 07/27/21 05:30 Glucose (Fingerstick) 139 mg/dL (70-99) 136 mg/dL (70-99) 137 mg/dL (70-99) White Blood Count 16.9 x10^3/uL (4.0-11.0) Red Blood Count 3.30 x10^6/uL (4.30-5.70) Hemoglobin 9.5 g/dL (13.0-17.5) Hematocrit 29.2 % (39.0-53.0) Mean Corpuscular Volume 88 fL (79-100) Mean Corpuscular Hemoglobin 29 pg (25-35) Mean Corpuscular Hemoglobin Concent 33 g/dL (31-37) Red Cell Distribution Width 16.8 % (11.5-14.5) Platelet Count 376 x10^3/uL (140-400) Neutrophils (%) (Auto) 87 % (31-73) Lymphocytes (%) (Auto) 4 % (24-48) Monocytes (%) (Auto) 9 % (0-9) Eosinophils (%) (Auto) 0 % (0-3) Basophils (%) (Auto) 0 % (0-3) Neutrophils # (Auto) 14.7 x10^3/uL (1.8-7.7) Lymphocytes # (Auto) 0.7 x10^3/uL (1.0-4.8) Monocytes # (Auto) 1.4 x10^3/uL (0.0-1.1) Eosinophils # (Auto) 0.1 x10^3/uL (0.0-0.7) Basophils # (Auto) 0.1 x10^3/uL (0.0-0.2) Sodium Level 143 mmol/L (136-145) Potassium Level 4.8 mmol/L (3.5-5.1) Chloride Level 109 mmol/L (98-107) Carbon Dioxide Level 22 mmol/L (21-32) Anion Gap 12 (6-14) Blood Urea Nitrogen 42 mg/dL (8-26) Creatinine 1.0 mg/dL (0.7-1.3) Estimated GFR (Cockcroft-Gault) 71.0 Glucose Level 109 mg/dL (70-99) Calcium Level 7.2 mg/dL (8.5-10.1) Phosphorus Level 4.2 mg/dL (2.6-4.7) Magnesium Level 2.1 mg/dL (1.8-2.4) Test 07/27/21 07:40 O2 Saturation 96 % (92-99) Arterial Blood pH 7.47 (7.35-7.45) Arterial Blood pCO2 at Patient Temp 28 mmHg (35-46) Arterial Blood pO2 at Patient Temp 83 mmHg (65-108) Arterial Blood HCO3 20 mmol/L (21-28) Arterial Blood Base Excess -3 mmol/L (-3-3) FiO2 40 Laboratory Tests Test 07/26/21 12:23 07/26/21 17:31 07/26/21 23:48 07/27/21 05:30 Glucose (Fingerstick) 139 mg/dL (70-99) 136 mg/dL (70-99) 137 mg/dL (70-99) White Blood Count 16.9 x10^3/uL (4.0-11.0) Red Blood Count 3.30 x10^6/uL (4.30-5.70) Hemoglobin 9.5 g/dL (13.0-17.5) Hematocrit 29.2 % (39.0-53.0) Mean Corpuscular Volume 88 fL (79-100) Mean Corpuscular Hemoglobin 29 pg (25-35) Mean Corpuscular Hemoglobin Concent 33 g/dL (31-37) Red Cell Distribution Width 16.8 % (11.5-14.5) Platelet Count 376 x10^3/uL (140-400) Neutrophils (%) (Auto) 87 % (31-73) Lymphocytes (%) (Auto) 4 % (24-48) Monocytes (%) (Auto) 9 % (0-9) Eosinophils (%) (Auto) 0 % (0-3) Basophils (%) (Auto) 0 % (0-3) Neutrophils # (Auto) 14.7 x10^3/uL (1.8-7.7) Lymphocytes # (Auto) 0.7 x10^3/uL (1.0-4.8) Monocytes # (Auto) 1.4 x10^3/uL (0.0-1.1) Eosinophils # (Auto) 0.1 x10^3/uL (0.0-0.7) Basophils # (Auto) 0.1 x10^3/uL (0.0-0.2) Sodium Level 143 mmol/L (136-145) Potassium Level 4.8 mmol/L (3.5-5.1) Chloride Level 109 mmol/L (98-107) Carbon Dioxide Level 22 mmol/L (21-32) Anion Gap 12 (6-14) Blood Urea Nitrogen 42 mg/dL (8-26) Creatinine 1.0 mg/dL (0.7-1.3) Estimated GFR (Cockcroft-Gault) 71.0 Glucose Level 109 mg/dL (70-99) Calcium Level 7.2 mg/dL (8.5-10.1) Phosphorus Level 4.2 mg/dL (2.6-4.7) Magnesium Level 2.1 mg/dL (1.8-2.4) Test 07/27/21 07:40 O2 Saturation 96 % (92-99) Arterial Blood pH 7.47 (7.35-7.45) Arterial Blood pCO2 at Patient Temp 28 mmHg (35-46) Arterial Blood pO2 at Patient Temp 83 mmHg (65-108) Arterial Blood HCO3 20 mmol/L (21-28) Arterial Blood Base Excess -3 mmol/L (-3-3) FiO2 40 Microbiology 07/19/21 Respiratory Culture Gram Stain - Final, Complete 07/19/21 Respiratory Culture - Final, Complete Elda Albicans Elda Glabrata 07/18/21 Blood Culture - Final, Complete NO GROWTH AFTER 5 DAYS Medications Current Medications Ceftriaxone Sodium (Rocephin) 2 gm Q24H IVP Last administered on 07/13/21at 06:30; Start 07/12/21 at 07:00; Stop 07/13/21 at 09:46; Status DC Metronidazole 100 ml @ 100 mls/hr Q8HRS IV Last administered on 07/13/21at 06:15; Start 07/12/21 at 14:00; Stop 07/13/21 at 09:46; Status DC Morphine Sulfate (Morphine Sulfate) 4 mg PRN Q4HRS PRN IVP SEVERE PAIN 7-10 Last administered on 07/12/21at 06:59; Start 07/12/21 at 06:15; Stop 07/12/21 at 13:52; Status DC Ondansetron HCl (Zofran) 4 mg PRN Q4HRS PRN IVP NAUSEA/VOMITING 1ST CHOICE Last administered on 07/12/21at 07:02; Start 07/12/21 at 06:15; Stop 07/12/21 at 13:03; Status DC Sodium Chloride 1,000 ml @ 150 mls/hr Q6H40M IV Last administered on 07/16/21at 04:36; Start 07/12/21 at 06:15; Stop 07/16/21 at 10:01; Status DC Piperacillin Sod/ Tazobactam Sod 2.25 gm/Sodium Chloride 50 ml @ 100 mls/hr Q8HRS IV Last administered on 07/13/21at 05:37; Start 07/12/21 at 14:00; Stop 07/13/21 at 11:36; Status DC Propofol (Diprivan) 200 mg STK-MED ONCE IV ; Start 07/12/21 at 07:43; Stop 07/12/21 at 07:44; Status DC Ondansetron HCl (Zofran) 4 mg STK-MED ONCE .ROUTE ; Start 07/12/21 at 07:43; Stop 07/12/21 at 07:44; Status DC Dexamethasone Sodium Phosphate (Decadron) 4 mg STK-MED ONCE .ROUTE ; Start 07/12/21 at 07:43; Stop 07/12/21 at 07:44; Status DC Succinylcholine Chloride (Anectine) 200 mg STK-MED ONCE .ROUTE ; Start 07/12/21 at 07:44; Stop 07/12/21 at 07:44; Status DC Neostigmine Austin (Neostigmine Methylsulfate) 5 mg STK-MED ONCE .ROUTE ; Start 07/12/21 at 07:44; Stop 07/12/21 at 07:44; Status DC Rocuronium Austin (Zemuron) 50 mg STK-MED ONCE .ROUTE ; Start 07/12/21 at 07:44; Stop 07/12/21 at 07:44; Status DC Fentanyl Citrate (Fentanyl 2ml Vial) 100 mcg STK-MED ONCE .ROUTE ; Start 07/12/21 at 07:44; Stop 07/12/21 at 07:44; Status DC Midazolam HCl (Versed) 2 mg STK-MED ONCE .ROUTE ; Start 07/12/21 at 07:44; Stop 07/12/21 at 07:44; Status DC Glycopyrrolate (Robinul) 1 mg STK-MED ONCE .ROUTE ; Start 07/12/21 at 07:45; Stop 07/12/21 at 07:45; Status DC Fentanyl Citrate (Fentanyl 2ml Vial) 25 mcg PRN Q5MIN PRN IVP MILD PAIN 1-3; S tart 07/12/21 at 08:00; Stop 07/13/21 at 07:59; Status DC Fentanyl Citrate (Fentanyl 2ml Vial) 50 mcg PRN Q5MIN PRN IVP MODERATE PAIN 4- 6; Start 07/12/21 at 08:00; Stop 07/13/21 at 07:59; Status DC Morphine Sulfate (Morphine Sulfate) 1 mg PRN Q10MIN PRN IVP SEVERE PAIN 7-10; Start 07/12/21 at 08:00; Stop 07/13/21 at 07:59; Status DC Ringer's Solution 1,000 ml @ 30 mls/hr Q24H IV ; Start 07/12/21 at 08:00; Stop 07/12/21 at 19:59; Status DC Hydromorphone HCl (Dilaudid) 0.5 mg PRN Q10MIN PRN IVP SEVERE PAIN 7-10, 2nd CHOICE; Start 07/12/21 at 08:00; Stop 07/13/21 at 07:59; Status DC Prochlorperazine Edisylate (Compazine) 5 mg PACU PRN PRN IVP NAUSEA, MRX1; Start 07/12/21 at 08:00; Stop 07/13/21 at 07:59; Status DC Albumin Human 500 ml @ 125 mls/hr 1X ONCE IV Last administered on 07/12/21at 08:17; Start 07/12/21 at 08:15; Stop 07/12/21 at 12:14; Status DC Etomidate (Amidate) 20 mg STK-MED ONCE IV ; Start 07/12/21 at 08:30; Stop 07/12/21 at 08:30; Status DC Rocuronium Austin (Zemuron) 100 mg STK-MED ONCE .ROUTE ; Start 07/12/21 at 09:34; Stop 07/12/21 at 09:34; Status DC Phenylephrine HCl (PHENYLEPHRINE in 0.9% NACL PF) 1 mg STK-MED ONCE IV ; Start 07/12/21 at 10:27; Stop 07/12/21 at 10:27; Status DC Phenylephrine HCl (Lionel-Synephrine Inj) 10 mg STK-MED ONCE .ROUTE ; Start 07/12/21 at 10:27; Stop 07/12/21 at 10:27; Status DC Ephedrine Sulfate (ePHEDrine PF IN SALINE SYRINGE) 50 mg STK-MED ONCE IV ; Start 07/12/21 at 10:27; Stop 07/12/21 at 10:27; Status DC Albumin Human 500 ml @ As Directed STK-MED ONCE IV ; Start 07/12/21 at 11:15; Stop 07/12/21 at 11:16; Status DC Albumin Human 500 ml @ 500 mls/hr 1X ONCE IV Last administered on 07/12/21at 13:40; Start 07/12/21 at 11:30; Stop 07/12/21 at 12:29; Status DC Phenylephrine HCl (Lionel-Synephrine Inj) 10 mg STK-MED ONCE .ROUTE ; Start 07/12/21 at 11:54; Stop 07/12/21 at 11:55; Status DC Cefoxitin Sodium (Mefoxin) 1 gm Q6H IVP Last administered on 07/13/21at 01:47; Start 07/12/21 at 14:00; Stop 07/13/21 at 02:01; Status DC Famotidine (Pepcid Vial) 20 mg QHS IVP Last administered on 07/26/21at 20:41; Start 07/12/21 at 21:00 Enoxaparin Sodium (Lovenox 30mg Syringe) 30 mg Q24H SQ Last administered on 07/15/21at 21:04; Start 07/12/21 at 21:00; Stop 07/16/21 at 09:07; Status DC Sodium Chloride (Normal Saline Flush) 3 ml QSHIFT PRN IV AFTER MEDS AND BLOOD DRAWS; Start 07/12/21 at 12:15 Ringer's Solution 1,000 ml @ 100 mls/hr Q10H IV Last administered on 07/13/21at 10:39; Start 07/12/21 at 12:15; Stop 07/13/21 at 19:33; Status DC Naloxone HCl (Narcan) 0.4 mg PRN Q2MIN PRN IV SEE INSTRUCTIONS; Start 07/12/21 at 12:15 Sodium Chloride 1,000 ml @ 25 mls/hr Q24H IV ; Start 07/12/21 at 12:15; Stop 07/13/21 at 19:33; Status DC Morphine Sulfate (Morphine Sulfate) 1 mg PRN Q1HR PRN IV MODERATE PAIN; Start 07/12/21 at 12:15; Stop 07/12/21 at 13:51; Status DC Ondansetron HCl (Zofran) 4 mg PRN Q6HRS PRN IVP NAUESA, 1ST CHOICE; Start 07/12/21 at 12:15 Midazolam HCl 100 ml @ 1 mls/hr CONT PRN IV SEE PROTOCOL Last administered on 07/12/21at 16:55; Start 07/12/21 at 12:45; Stop 07/16/21 at 19:27; Status DC Propofol 100 ml @ 1.74 mls/hr CONT PRN IV PER PROTOCOL; Start 07/12/21 at 12:45; Stop 07/16/21 at 19:27; Status DC Glycerin/ Hypromellose/ Polyethylene (Artificial Tears) 1 drop PRN Q1HR PRN OU DRY EYE; Start 07/12/21 at 12:45 Albumin Human 500 ml @ 125 mls/hr 1X ONCE IV ; Start 07/12/21 at 12:45; Stop 07/12/21 at 16:44; Status DC Fentanyl Citrate 30 ml @ 0 mls/hr CONT PRN IV SEE PROTOCOL Last administered on 07/12/21at 23:40; Start 07/12/21 at 13:15; Stop 07/13/21 at 10:16; Status DC Sodium Bicarbonate (Sodium Bicarb Adult 8.4% Syr) 50 meq STK-MED ONCE .ROUTE ; Start 07/12/21 at 13:28; Stop 07/12/21 at 13:28; Status DC Sodium Bicarbonate (Sodium Bicarb Adult 8.4% Syr) 50 meq 1X ONCE IV Last administered on 07/12/21at 13:40; Start 07/12/21 at 13:45; Stop 07/12/21 at 13:46; Status DC Sodium Bicarbonate 150 meq/Dextrose 1,150 ml @ 75 mls/hr [id number] IV Last administered on 07/13/21at 05:37; Start 07/12/21 at 14:30; Stop 07/13/21 at 19:34; Status DC Norepinephrine Bitartrate 8 mg/ Dextrose 258 ml @ 11.204 mls/ hr CONT PRN IV PER PROTOCOL Last administered on 07/14/21at 23:22; Start 07/12/21 at 13:45; Stop 07/15/21 at 03:14; Status DC Fentanyl Citrate (Fentanyl 2ml Vial) 50 mcg 1X ONCE IVP ; Start 07/12/21 at 14:15; Stop 07/12/21 at 14:16; Status DC Sodium Bicarbonate (Sodium Bicarb Adult 8.4% Syr) 50 meq STK-MED ONCE .ROUTE ; Start 07/12/21 at 21:15; Stop 07/12/21 at 21:15; Status DC Sevoflurane (Ultane) 60 ml STK-MED ONCE IH ; Start 07/12/21 at 21:15; Stop 07/12/21 at 21:15; Status DC Digoxin (Lanoxin) 500 mcg 1X ONCE IV Last administered on 07/13/21at 03:22; Start 07/13/21 at 03:30; Stop 07/13/21 at 03:31; Status DC Fentanyl Citrate 55 ml @ 1 mls/hr CONT PRN IV SEE PROTOCOL Last administered on 07/15/21at 06:00; Start 07/13/21 at 10:30; Stop 07/16/21 at 19:27; Status DC Piperacillin Sod/ Tazobactam Sod 2.25 gm/Sodium Chloride 50 ml @ 100 mls/hr Q6HRS IV Last administered on 07/18/21at 17:10; Start 07/13/21 at 12:00; Stop 07/18/21 at 18:02; Status DC Propofol (Diprivan) 1,000 mg STK-MED ONCE IV ; Start 07/12/21 at 13:00; Stop 07/13/21 at 12:22; Status DC Digoxin (Lanoxin) 500 mcg 1X ONCE IV Last administered on 07/14/21at 04:40; Start 07/14/21 at 04:30; Stop 07/14/21 at 04:31; Status DC Magnesium Sulfate 50 ml @ 25 mls/hr 1X ONCE IV Last administered on 07/14/21at 15:22; Start 07/14/21 at 12:30; Stop 07/14/21 at 14:29; Status DC Sodium Chloride 1,000 ml @ 1,000 mls/hr 1X ONCE IV Last administered on 07/14/21at 12:15; Start 07/14/21 at 12:30; Stop 07/14/21 at 13:29; Status DC Sodium Chloride 1,000 ml @ 1,000 mls/hr 1X ONCE IV Last administered on 07/14/21at 15:42; Start 07/14/21 at 15:30; Stop 07/14/21 at 16:29; Status DC Sodium Chloride 500 ml @ 500 mls/hr 1X ONCE IV Last administered on 07/14/21at 12:15; Start 07/14/21 at 15:30; Stop 07/14/21 at 16:29; Status DC Norepinephrine Bitartrate 32 mg/ Dextrose 250 ml @ 3.192 mls/ hr CONT PRN IV SEE I/O RECORD Last administered on 07/25/21at 06:16; Start 07/15/21 at 03:30 Furosemide (Lasix) 20 mg 1X ONCE IVP Last administered on 07/15/21at 18:29; Start 07/15/21 at 10:00; Stop 07/15/21 at 10:01; Status DC Info (Tpn Per Pharmacy) 1 each PRN DAILY PRN MC SEE COMMENTS Last administered on 07/26/21at 13:09; Start 07/15/21 at 10:30 Sodium Chloride 90 meq/Potassium Chloride 50 meq/ Potassium Phosphate 13.6 mmol/Magnesium Sulfate 10 meq/ Multivitamins 10 ml/Zinc/Copper/ Manganese/ Se lenium 1 ml/ Total Parenteral Nutrition/Amino Acids/Dextrose/ Fat Emulsion Intravenous 1,512 ml @ 63 mls/hr TPN CONT IV Last administered on 07/15/21at 22:05; Start 07/15/21 at 22:00; Stop 07/16/21 at 21:59; Status DC Furosemide (Lasix) 20 mg 1X ONCE IVP ; Start 07/15/21 at 18:30; Stop 07/15/21 at 18:31; Status DC Enoxaparin Sodium (Lovenox 40mg Syringe) 40 mg Q24H SQ Last administered on 07/23/21at 21:26; Start 07/16/21 at 21:00; Stop 07/24/21 at 06:59; Status DC Sodium Chloride 70 meq/Potassium Chloride 50 meq/ Potassium Phosphate 20 mmol/ Magnesium Sulfate 10 meq/ Multivitamins 10 ml/Zinc/Copper/ Manganese/ Selenium 1 ml/ Total Parenteral Nutrition/Amino Acids/Dextrose/ Fat Emulsion Intravenous 1,512 ml @ 63 mls/hr TPN CONT IV ; Start 07/16/21 at 22:00; Stop 07/16/21 at 13:33; Status DC Sodium Chloride 70 meq/Potassium Chloride 50 meq/ Potassium Phosphate 20 mmol/ Magnesium Sulfate 10 meq/ Multivitamins 10 ml/Zinc/Copper/ Manganese/ Selenium 1 ml/ Total Parenteral Nutrition/Amino Acids/Dextrose/ Fat Emulsion Intravenous 1,482 ml @ 61.75 mls/ hr TPN CONT IV ; Start 07/16/21 at 22:00; Stop 07/16/21 at 14:03; Status DC Sodium Chloride 70 meq/Potassium Chloride 50 meq/ Potassium Phosphate 20 mmol/ Magnesium Sulfate 10 meq/ Multivitamins 10 ml/Zinc/Copper/ Manganese/ Selenium 1 ml/ Total Parenteral Nutrition/Amino Acids/Dextrose/ Fat Emulsion Intravenous 1,512 ml @ 63 mls/hr TPN CONT IV Last administered on 07/16/21at 21:38; Start 07/16/21 at 22:00; Stop 07/17/21 at 21:59; Status DC Fentanyl Citrate (Fentanyl 2ml Vial) 25 mcg PRN Q1HR PRN IVP PAIN Last administered on 07/23/21at 14:06; Start 07/16/21 at 19:30; Stop 07/24/21 at 21:50; Status DC Labetalol HCl (Normodyne Iv Push) 10 mg PRN Q4HRS PRN IVP HYPERTENSION; Start 07/17/21 at 09:15 Potassium Phosphate 15 mmol/ Sodium Chloride 105 ml @ 52.5 mls/hr 1X ONCE IV Last administered on 07/17/21at 12:32; Start 07/17/21 at 12:00; Stop 07/17/21 at 13:59; Status DC Sodium Chloride 70 meq/Potassium Chloride 50 meq/ Potassium Phosphate 25 mmol/ Magnesium Sulfate 10 meq/ Multivitamins 10 ml/Zinc/Copper/ Manganese/ Selenium 1 ml/ Total Parenteral Nutrition/Amino Acids/Dextrose/ Fat Emulsion Intravenous 1,512 ml @ 63 mls/hr TPN CONT IV Last administered on 07/17/21at 20:22; Start 07/17/21 at 22:00; Stop 07/18/21 at 21:59; Status DC Furosemide (Lasix) 40 mg 1X ONCE IVP Last administered on 07/17/21at 12:28; Start 07/17/21 at 11:45; Stop 07/17/21 at 11:46; Status DC Sodium Acetate 70 meq/Potassium Chloride 50 meq/ Potassium Phosphate 22 mmol/ Magnesium Sulfate 8 meq/ Multivitamins 10 ml/Zinc/Copper/ Manganese/ Selenium 1 ml/ Total Parenteral Nutrition/Amino Acids/Dextrose/ Fat Emulsion Intravenous 1,512 ml @ 63 mls/hr TPN CONT IV Last administered on 07/18/21at 21:44; Start 07/18/21 at 22:00; Stop 07/19/21 at 21:59; Status DC Meropenem 500 mg/ Sodium Chloride 50 ml @ 100 mls/hr Q8HRS IV Last administered on 07/27/21at 05:42; Start 07/18/21 at 22:00 Daptomycin 450 mg/ Sodium Chloride 50 ml @ 100 mls/hr Q24H IV Last administered on 07/25/21at 20:10; Start 07/18/21 at 20:00; Stop 07/26/21 at 10:20; Status DC Sodium Chloride 40 meq/Potassium Acetate 50 meq/ Potassium Phosphate 22 mmol/ Ma gnesium Sulfate 8 meq/ Multivitamins 10 ml/Zinc/Copper/ Manganese/ Selenium 1 ml/ Total Parenteral Nutrition/Amino Acids/Dextrose/ Fat Emulsion Intravenous 1,680 ml @ 70 mls/hr TPN CONT IV Last administered on 07/19/21at 21:40; Start 07/19/21 at 22:00; Stop 07/20/21 at 21:59; Status DC Linezolid/Dextrose 300 ml @ 300 mls/hr Q12HR IV Last administered on 07/27/21at 07:54; Start 07/19/21 at 14:00 Sodium Chloride 40 meq/Potassium Acetate 50 meq/ Potassium Phosphate 22 mmol/ Magnesium Sulfate 6 meq/ Multivitamins 10 ml/Zinc/Copper/ Manganese/ Selenium 1 ml/ Total Parenteral Nutrition/Amino Acids/Dextrose/ Fat Emulsion Intravenous 1,680 ml @ 70 mls/hr TPN CONT IV Last administered on 07/20/21at 22:14; Start 07/20/21 at 22:00; Stop 07/21/21 at 21:59; Status DC Sodium Chloride 40 meq/Potassium Acetate 50 meq/ Potassium Phosphate 26 mmol/ Magnesium Sulfate 6 meq/ Multivitamins 10 ml/Zinc/Copper/ Manganese/ Selenium 1 ml/ Total Parenteral Nutrition/Amino Acids/Dextrose/ Fat Emulsion Intravenous 1,680 ml @ 70 mls/hr TPN CONT IV ; Start 07/21/21 at 22:00; Stop 07/21/21 at 08:54; Status DC Sodium Chloride 40 meq/Potassium Acetate 60 meq/ Potassium Phosphate 30 mmol/ Magnesium Sulfate 6 meq/ Multivitamins 10 ml/Zinc/Copper/ Manganese/ Selenium 1 ml/ Total Parenteral Nutrition/Amino Acids/Dextrose/ Fat Emulsion Intravenous 1,680 ml @ 70 mls/hr TPN CONT IV Last administered on 07/21/21at 22:18; Start 07/21/21 at 22:00; Stop 07/22/21 at 22:00; Status DC Sodium Chloride 40 meq/Potassium Acetate 60 meq/ Potassium Phosphate 30 mmol/ Magnesium Sulfate 6 meq/ Multivitamins 10 ml/Zinc/Copper/ Manganese/ Selenium 1 ml/ Total Parenteral Nutrition/Amino Acids/Dextrose/ Fat Emulsion Intravenous 1,680 ml @ 70 mls/hr TPN CONT IV Last administered on 07/22/21at 23:29; Start 07/22/21 at 22:00; Stop 07/23/21 at 21:59; Status DC Sodium Chloride 40 meq/Potassium Acetate 50 meq/ Potassium Phosphate 15 mmol/ Magnesium Sulfate 4 meq/ Multivitamins 10 ml/Zinc/Copper/ Manganese/ Selenium 1 ml/ Total Parenteral Nutrition/Amino Acids/Dextrose/ Fat Emulsion Intravenous 1,680 ml @ 70 mls/hr TPN CONT IV Last administered on 07/23/21at 22:24; Start 07/23/21 at 22:00; Stop 07/24/21 at 21:59; Status DC Sodium Chloride 40 meq/Potassium Acetate 50 meq/ Potassium Phosphate 15 mmol/ Magnesium Sulfate 4 meq/ Multivitamins 10 ml/Zinc/Copper/ Manganese/ Selenium 1 ml/ Total Parenteral Nutrition/Amino Acids/Dextrose/ Fat Emulsion Intravenous 1,680 ml @ 70 mls/hr TPN CONT IV Last administered on 07/24/21at 22:11; Start 07/24/21 at 22:00; Stop 07/25/21 at 21:59; Status DC Fentanyl Citrate 30 ml @ 0 mls/hr CONT PRN IV SEE PROTOCOL Last administered on 07/26/21at 00:14; Start 07/24/21 at 12:30 Propofol 100 ml @ 2.289 mls/ hr CONT PRN IV PER PROTOCOL; Start 07/24/21 at 12:30 Midazolam HCl 100 ml @ 1 mls/hr CONT PRN IV SEE PROTOCOL Last administered on 07/24/21at 15:45; Start 07/24/21 at 13:00 Bupivacaine HCl/ Epinephrine Bitart (Sensorcain-Epi 0.5% Kit) 30 ml STK-MED ONCE INJ Last administered on 07/24/21at 13:44; Start 07/24/21 at 13:44; Stop 07/24/21 at 13:58; Status DC Sodium Chloride 40 meq/Potassium Acetate 50 meq/ Potassium Phosphate 15 mmol/ Magnesium Sulfate 4 meq/ Multivitamins 10 ml/Zinc/Copper/ Manganese/ Selenium 1 ml/ Total Parenteral Nutrition/Amino Acids/Dextrose/ Fat Emulsion Intravenous 1,680 ml @ 70 mls/hr TPN CONT IV Last administered on 07/25/21at 21:42; Start 07/25/21 at 22:00; Stop 07/26/21 at 21:59; Status DC Propofol (Diprivan) 200 mg STK-MED ONCE IV ; Start 07/24/21 at 12:49; Stop 07/25/21 at 14:54; Status DC Rocuronium [place] (Zemuron) 50 mg STK-MED ONCE .ROUTE ; Start 07/24/21 at 12:49; Stop 07/25/21 at 14:54; Status DC Fentanyl Citrate (Fentanyl 2ml Vial) 100 mcg STK-MED ONCE .ROUTE ; Start 07/24/21 at 12:49; Stop 07/25/21 at 14:54; Status DC Cellulose (Surgicel Fibrillar 1x2) 1 each STK-MED ONCE .ROUTE ; Start 07/24/21 at 12:52; Stop 07/25/21 at 14:55; Status DC Bupivacaine HCl/ Epinephrine Bitart (Sensorcain-Epi 0.5% Kit) 30 ml STK-MED ONCE .ROUTE ; Start 07/24/21 at 12:53; Stop 07/25/21 at 14:55; Status DC Phenylephrine HCl (PHENYLEPHRINE in 0.9% NACL PF) 1 mg STK-MED ONCE IV ; Start 07/24/21 at 13:35; Stop 07/25/21 at 14:55; Status DC Sodium Chloride 500 ml @ 500 mls/hr 1X ONCE IV Last administered on 07/26/21at 07:57; Start 07/26/21 at 07:45; Stop 07/26/21 at 08:44; Status DC Fentanyl Citrate (Fentanyl 2ml Vial) 25 mcg PRN Q2HR PRN IVP PAIN; Start 07/26/21 at 08:45 Furosemide (Lasix) 20 mg 1X ONCE IVP Last administered on 07/26/21at 09:06; Start 07/26/21 at 09:00; Stop 07/26/21 at 09:01; Status DC Sodium Chloride 40 meq/Potassium Acetate 30 meq/ Potassium Phosphate 15 mmol/ Magnesium Sulfate 4 meq/ Multivitamins 10 ml/Zinc/Copper/ Manganese/ Selenium 1 ml/ Total Parenteral Nutrition/Amino Acids/Dextrose/ Fat Emulsion Intravenous 1,680 ml @ 70 mls/hr TPN CONT IV ; Start 07/26/21 at 22:00; Stop 07/26/21 at 13:11; Status DC Sodium Chloride 40 meq/Potassium Acetate 40 meq/ Potassium Phosphate 10 mmol/ Magnesium Sulfate 4 meq/ Multivitamins 10 ml/Zinc/Copper/ Manganese/ Selenium 1 ml/ Total Parenteral Nutrition/Amino Acids/Dextrose/ Fat Emulsion Intravenous 1,680 ml @ 70 mls/hr TPN CONT IV Last administered on 07/26/21at 22:00; Start 07/26/21 at 22:00; Stop 07/27/21 at 21:59 Active Scripts Active [Pantoprazole] 40 MG Tablet.dr 40 Mg PO BIDBFRMEAL Carafate (Sucralfate) 1 Gm/10 Ml Oral.susp 1 Gm PO TIDBFRMEAL Reported Avalide 150-12.5 Mg Tablet (Irbesartan/Hydrochlorothiazide) 1 Each Tablet 1 Each PO DAILY Vitals/I & O Vital Sign - Last 24 Hours 07/26/21 07/26/21 07/26/21 07/26/21 09:00 10:00 10:48 11:00 Pulse 85 84 90 Resp B/P (MAP) 127/55 129/59 137/65 Pulse Ox 99 99 99 99 O2 Delivery Ventilator Ventilator Ventilator Ventilator 07/26/21 07/26/21 07/26/21 07/26/21 12:00 12:00 12:31 13:00 Temp 98.3 98.3 Pulse 84 88 Resp 24 B/P (MAP) 127/62 134/61 Pulse Ox 99 97 100 O2 Delivery Ventilator Mechanical Ventilator Ventilator Ventilator 07/26/21 07/26/21 07/26/21 07/26/21 14:00 14:46 15:00 16:00 Pulse 89 90 Resp B/P (MAP) 129/60 130/65 Pulse Ox 100 97 100 O2 Delivery Ventilator Ventilator Ventilator Mechanical Ventilator 07/26/21 07/26/21 07/26/21 07/26/21 16:00 16:41 17:00 18:00 Temp 98.9 98.9 Pulse 89 86 91 Resp B/P (MAP) 133/63 128/65 144/64 Pulse Ox 100 96 100 100 O2 Delivery Ventilator Ventilator Ventilator Ventilator 07/26/21 07/26/21 07/26/21 07/26/21 19:00 20:00 20:00 20:03 Temp 99.5 99.5 Pulse 92 94 Resp 25 27 B/P (MAP) 145/63 148/64 Pulse Ox 100 100 100 O2 Delivery Ventilator Ventilator Mechanical Ventilator Ventilator 07/26/21 07/26/21 07/26/21 07/26/21 21:00 22:00 23:00 23:42 Pulse 90 87 90 Resp 25 29 25 B/P (MAP) 128/61 118/60 142/74 Pulse Ox 100 100 100 100 O2 Delivery Ventilator Ventilator Ventilator Ventilator 07/27/21 07/27/21 07/27/21 07/27/21 00:00 00:01 01:00 01:44 Temp 98.8 98.8 Pulse 84 84 Resp 29 27 B/P (MAP) 158/56 146/61 Pulse Ox 100 100 100 O2 Delivery Mechanical Ventilator Ventilator Ventilator Ventilator 07/27/21 07/27/21 07/27/21 07/27/21 02:00 03:00 03:25 04:00 Temp 99.8 99.8 Pulse 79 82 85 Resp 28 B/P (MAP) 133/57 136/59 136/59 Pulse Ox 100 100 100 100 O2 Delivery Ventilator Ventilator Ventilator Ventilator 07/27/21 07/27/21 07/27/21 07/27/21 04:00 05:00 05:27 06:00 Pulse 88 84 Resp 24 24 B/P (MAP) 141/60 139/67 Pulse Ox 100 100 100 O2 Delivery Mechanical Ventilator Ventilator Ventilator Ventilator 07/27/21 07/27/21 07:00 07:41 Pulse 87 Resp 23 B/P (MAP) 141/62 Pulse Ox 100 100 O2 Delivery Ventilator Ventilator Intake and Output 07/26/21 07/26/21 07/27/21 15:00 23:00 07:00 Intake Total 853.6 ml 770 ml 872 ml Output Total 980 ml 680 ml 750 ml Balance -126.4 ml 90 ml 122 ml Justicifation of Admission Dx: Justifications for Admission: Justification of Admission Dx: Yes Sepsis: Hemodynamic Instability ROME CANTOR MD July 27, 2021 08:29
[2021-07-27] MEDS: TPN PER PHARMACY MC PRN (10:44)
--- NOTE | 2021-07-27 10:44 | NUR ---
Pharmacy TPN Dosing Note S: AZEB COOMBS is a 85 year old M Currently receiving Central Continuous TPN started 07/15/21 B:Pertinent PMH: NPO SINCE 07/12, PERFERATED BOWEL Height: 5 feet, 4 inches Weight: 78.6 kg Current diet: NPO LABS: Sodium: 143 Potassium: 4.8 Chloride: 109 Calcium: 7.2 Corrected Calcium: 9.76 Magnesium: 2.1 CO2: 22 SCr: 1 Glucose: 109 Albumin: 0.8 AST: 132 ALT: 123 TPN FORMULA: TPN TYPE: Central Continuous AMINO ACIDS: 75 gm DEXTROSE: 210 gm LIPIDS: 30 gm SODIUM CHLORIDE: 40 mEq SODIUM ACETATE: -- mEq SODIUM PHOSPHATE: -- mmol POTASSIUM CHLORIDE: -- mEq POTASSIUM ACETATE: 30 mEq POTASSIUM PHOSPHATE: 10 mmol MAGNESIUM: 4 mEq CALCIUM: -- mEq INSULIN: -- units MULTIPLE VITAMIN: 10 ml TRACE ELEMENTS: 1 mL ml(s) TPN PLAN: K has been near the upper limit, will reduce KAce just slightly. R: Continue TPN as written above. Will monitor electrolytes, glucose, and tolerance to TPN. TALON COPPOLA [facility], 07/27/21 1102
--- NOTE | 2021-07-27 11:14 | PDOC ---
PULMONARY PROGRESS NOTES DATE: 07/27/21 TIME: 11:07 Subjective Status post tracheostomy 07/24/2021. Remains on assist control mode. Versed discontinued yesterday afternoon. Currently on fentanyl 50 mics an hour. Not awake. Chest x-ray from today with johnson out left lung. Vitals Vital Signs Date Time Temp Pulse Resp B/P (MAP) Pulse Ox O2 Delivery O2 Flow Rate FiO2 07/27/21 09:06 100 Ventilator 07/27/21 09:00 87 25 157/77 07/27/21 08:00 99.2 99.2 General: No acute distress, Lethargic Lungs: Clear Cardiovascular: S1, S2 Abdomen: Soft, Other (Distended) Extremities: Other (Significant scrotal edema.) Skin: Warm Labs Laboratory Tests Test 07/25/21 13:16 07/25/21 18:55 07/26/21 06:30 07/26/21 07:32 Glucose (Fingerstick) 118 mg/dL (70-99) 118 mg/dL (70-99) Sodium Level 141 mmol/L (136-145) Potassium Level 5.0 mmol/L (3.5-5.1) Chloride Level 111 mmol/L (98-107) Carbon Dioxide Level 24 mmol/L (21-32) Anion Gap 6 (6-14) Blood Urea Nitrogen 43 mg/dL (8-26) Creatinine 1.3 mg/dL (0.7-1.3) Estimated GFR (Cockcroft-Gault) 52.5 BUN/Creatinine Ratio 33 (6-20) Glucose Level 124 mg/dL (70-99) Calcium Level 7.3 mg/dL (8.5-10.1) Phosphorus Level 4.5 mg/dL (2.6-4.7) Magnesium Level 2.1 mg/dL (1.8-2.4) Total Bilirubin 0.8 mg/dL (0.2-1.0) Aspartate Amino Transf (AST/SGOT) 81 U/L (15-37) Alanine Aminotransferase (ALT/SGPT) 83 U/L (16-63) Alkaline Phosphatase 239 U/L (46-116) Total Protein 5.1 g/dL (6.4-8.2) Albumin 0.8 g/dL (3.4-5.0) Albumin/Globulin Ratio 0.2 (1.0-1.7) O2 Saturation 92 % (92-99) Arterial Blood pH 7.40 (7.35-7.45) Arterial Blood pCO2 at Patient Temp 34 mmHg (35-46) Arterial Blood pO2 at Patient Temp 65 mmHg (65-108) Arterial Blood HCO3 21 mmol/L (21-28) Arterial Blood Base Excess -4 mmol/L (-3-3) FiO2 50% vent Test 07/26/21 12:23 07/26/21 17:31 07/26/21 23:48 07/27/21 05:30 Glucose (Fingerstick) 139 mg/dL (70-99) 136 mg/dL (70-99) 137 mg/dL (70-99) White Blood Count 16.9 x10^3/uL (4.0-11.0) Red Blood Count 3.30 x10^6/uL (4.30-5.70) Hemoglobin 9.5 g/dL (13.0-17.5) Hematocrit 29.2 % (39.0-53.0) Mean Corpuscular Volume 88 fL (79-100) Mean Corpuscular Hemoglobin 29 pg (25-35) Mean Corpuscular Hemoglobin Concent 33 g/dL (31-37) Red Cell Distribution Width 16.8 % (11.5-14.5) Platelet Count 376 x10^3/uL (140-400) Neutrophils (%) (Auto) 87 % (31-73) Lymphocytes (%) (Auto) 4 % (24-48) Monocytes (%) (Auto) 9 % (0-9) Eosinophils (%) (Auto) 0 % (0-3) Basophils (%) (Auto) 0 % (0-3) Neutrophils # (Auto) 14.7 x10^3/uL (1.8-7.7) Lymphocytes # (Auto) 0.7 x10^3/uL (1.0-4.8) Monocytes # (Auto) 1.4 x10^3/uL (0.0-1.1) Eosinophils # (Auto) 0.1 x10^3/uL (0.0-0.7) Basophils # (Auto) 0.1 x10^3/uL (0.0-0.2) Sodium Level 143 mmol/L (136-145) Potassium Level 4.8 mmol/L (3.5-5.1) Chloride Level 109 mmol/L (98-107) Carbon Dioxide Level 22 mmol/L (21-32) Anion Gap 12 (6-14) Blood Urea Nitrogen 42 mg/dL (8-26) Creatinine 1.0 mg/dL (0.7-1.3) Estimated GFR (Cockcroft-Gault) 71.0 Glucose Level 109 mg/dL (70-99) Calcium Level 7.2 mg/dL (8.5-10.1) Phosphorus Level 4.2 mg/dL (2.6-4.7) Magnesium Level 2.1 mg/dL (1.8-2.4) Test 07/27/21 07:40 O2 Saturation 96 % (92-99) Arterial Blood pH 7.47 (7.35-7.45) Arterial Blood pCO2 at Patient Temp 28 mmHg (35-46) Arterial Blood pO2 at Patient Temp 83 mmHg (65-108) Arterial Blood HCO3 20 mmol/L (21-28) Arterial Blood Base Excess -3 mmol/L (-3-3) FiO2 40 Laboratory Tests Test 07/26/21 12:23 07/26/21 17:31 07/26/21 23:48 07/27/21 05:30 Glucose (Fingerstick) 139 mg/dL (70-99) 136 mg/dL (70-99) 137 mg/dL (70-99) White Blood Count 16.9 x10^3/uL (4.0-11.0) Red Blood Count 3.30 x10^6/uL (4.30-5.70) Hemoglobin 9.5 g/dL (13.0-17.5) Hematocrit 29.2 % (39.0-53.0) Mean Corpuscular Volume 88 fL (79-100) Mean Corpuscular Hemoglobin 29 pg (25-35) Mean Corpuscular Hemoglobin Concent 33 g/dL (31-37) Red Cell Distribution Width 16.8 % (11.5-14.5) Platelet Count 376 x10^3/uL (140-400) Neutrophils (%) (Auto) 87 % (31-73) Lymphocytes (%) (Auto) 4 % (24-48) Monocytes (%) (Auto) 9 % (0-9) Eosinophils (%) (Auto) 0 % (0-3) Basophils (%) (Auto) 0 % (0-3) Neutrophils # (Auto) 14.7 x10^3/uL (1.8-7.7) Lymphocytes # (Auto) 0.7 x10^3/uL (1.0-4.8) Monocytes # (Auto) 1.4 x10^3/uL (0.0-1.1) Eosinophils # (Auto) 0.1 x10^3/uL (0.0-0.7) Basophils # (Auto) 0.1 x10^3/uL (0.0-0.2) Sodium Level 143 mmol/L (136-145) Potassium Level 4.8 mmol/L (3.5-5.1) Chloride Level 109 mmol/L (98-107) Carbon Dioxide Level 22 mmol/L (21-32) Anion Gap 12 (6-14) Blood Urea Nitrogen 42 mg/dL (8-26) Creatinine 1.0 mg/dL (0.7-1.3) Estimated GFR (Cockcroft-Gault) 71.0 Glucose Level 109 mg/dL (70-99) Calcium Level 7.2 mg/dL (8.5-10.1) Phosphorus Level 4.2 mg/dL (2.6-4.7) Magnesium Level 2.1 mg/dL (1.8-2.4) Test 07/27/21 07:40 O2 Saturation 96 % (92-99) Arterial Blood pH 7.47 (7.35-7.45) Arterial Blood pCO2 at Patient Temp 28 mmHg (35-46) Arterial Blood pO2 at Patient Temp 83 mmHg (65-108) Arterial Blood HCO3 20 mmol/L (21-28) Arterial Blood Base Excess -3 mmol/L (-3-3) FiO2 40 Medications Active Scripts Medications Dose Route/Sig Max Daily Dose Days Date Category [Pantoprazole] 40 MG Tablet.dr 40 Mg PO BIDBFRMEAL 06/22/17 Rx Carafate (Sucralfate) 1 Gm/10 Ml Oral.susp 1 Gm PO TIDBFRMEAL 06/22/17 Rx Avalide 150-12.5 Mg Tablet (Irbesartan/Hydrochlorothiazide) 1 Each Tablet 1 Each PO DAILY 06/19/17 Reported Comments Chest x-ray reviewed 07/27/2021. Mildly prominent vascular markings and johnson out left lung with ipsilateral mediastinal shift. Likely mucous plug. Chest x-ray reviewed 07/23/2021 Left pleural effusion and infiltrate. CT chest dated 07/19/2021 reviewed. Bilateral lung nodules consistent with metastatic disease. Mild to moderate bilateral pleural effusions with associated compressive atelectasis. Chest x-ray reviewed 07/17/2021. Mild progression of interstitial infiltrates and pleural effusion consistent with CHF. There is a skinfold on the left apex unlikely pneumothorax. Impression . Acute respiratory failure multifactorial status post exploratory laparotomy for perforated viscus. Status post tracheostomy 07/24/2021. Septic shock. Of Levophed. Oxygen requirement increased to 50%. We will repeat chest x-ray and give extra Lasix today. Fever, per ID. Acute renal failure. History of prostate cancer Severe protein malnutrition present upon admission. 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 Bilateral lung nodules suggestive of metastasis to the lungs. Bilateral moderate pleural effusions with associated atelectasis related to low oncotic pressure. CT chest reviewed dated 07/19/2021 Toxic metabolic encephalopathy, improving Abnormal liver function test. Abnormal chest x-ray. Now whiteout left lung 07/27/2021. Likely mucous plug. Will benefit from bronchoscopy. \ Plan . Updated 07/27 Status post tracheostomy 07/24/2021. Chest x-ray now with johnson out left lung. Will benefit from bronchoscopy. Continue to monitor off sedation. We will start CPAP trials as tolerated after bronchoscopy. off Levophed. Repeat chest x-ray in a.m. As needed Lasix. I have talked to patient's son in detail. He agrees to proceed with bronchoscopy. Continue present aggressive care. Likely transfer to LTAC later today or a.m. Updated 07/26 Status post tracheostomy 07/24/2021. Re- sedated postprocedure. Now off Versed but on a fentanyl drip. Not fully awake. Will discontinue fentanyl drip and use as needed. We will gradually wean sedation and assess for CPAP trial. off Levophed. Repeat chest x-ray in a.m. Extra IV Lasix today. I have talked to patient's son in detail. Continue present aggressive care. Likely transfer to LTAC next week Updated 07/25 Status post tracheostomy 07/24/2021. Re- sedated postprocedure. We will gradually wean sedation and assess for CPAP trial in the next 24 hours. Wean off Levophed. Labs reviewed updated Will proceed with aggressive weaning from next 24 hours. I have talked to patient's son in detail. Continue present aggressive care. Likely transfer to LTAC next week YASMIN WEAVER MD July 27, 2021 11:14
[2021-07-27] MEDS ORDERED: LIDOCAINE 1% Multi-Dose 20 ML VIAL. INJ PRN (11:15)
--- NOTE | 2021-07-27 11:46 | PDOC ---
SURGICAL PROGRESS NOTE DATE: 07/27/21 TIME: 11:45 Subjective broch in progress during rounds Vital Signs Vital Signs Date Time Temp Pulse Resp B/P (MAP) Pulse Ox O2 Delivery O2 Flow Rate FiO2 07/27/21 09:06 100 Ventilator 07/27/21 09:00 87 25 157/77 07/27/21 08:00 99.2 99.2 I&O Intake and Output 07/27/21 07:00 Intake Total 2495.6 ml Output Total 2410 ml Balance 85.6 ml IV Total 2495.6 ml Output Urine Total 1930 ml Drainage Total 480 ml # Bowel Movements 2 PATIENT HAS A PEDRO: Yes General: Other (sedated ) Abdomen: Other (d tube bilious ) Labs Laboratory Tests Test 07/25/21 13:16 07/25/21 18:55 07/26/21 06:30 07/26/21 07:32 Glucose (Fingerstick) 118 mg/dL (70-99) 118 mg/dL (70-99) Sodium Level 141 mmol/L (136-145) Potassium Level 5.0 mmol/L (3.5-5.1) Chloride Level 111 mmol/L (98-107) Carbon Dioxide Level 24 mmol/L (21-32) Anion Gap 6 (6-14) Blood Urea Nitrogen 43 mg/dL (8-26) Creatinine 1.3 mg/dL (0.7-1.3) Estimated GFR (Cockcroft-Gault) 52.5 BUN/Creatinine Ratio 33 (6-20) Glucose Level 124 mg/dL (70-99) Calcium Level 7.3 mg/dL (8.5-10.1) Phosphorus Level 4.5 mg/dL (2.6-4.7) Magnesium Level 2.1 mg/dL (1.8-2.4) Total Bilirubin 0.8 mg/dL (0.2-1.0) Aspartate Amino Transf (AST/SGOT) 81 U/L (15-37) Alanine Aminotransferase (ALT/SGPT) 83 U/L (16-63) Alkaline Phosphatase 239 U/L (46-116) Total Protein 5.1 g/dL (6.4-8.2) Albumin 0.8 g/dL (3.4-5.0) Albumin/Globulin Ratio 0.2 (1.0-1.7) O2 Saturation 92 % (92-99) Arterial Blood pH 7.40 (7.35-7.45) Arterial Blood pCO2 at Patient Temp 34 mmHg (35-46) Arterial Blood pO2 at Patient Temp 65 mmHg (65-108) Arterial Blood HCO3 21 mmol/L (21-28) Arterial Blood Base Excess -4 mmol/L (-3-3) FiO2 50% vent Test 07/26/21 12:23 07/26/21 17:31 07/26/21 23:48 07/27/21 05:30 Glucose (Fingerstick) 139 mg/dL (70-99) 136 mg/dL (70-99) 137 mg/dL (70-99) White Blood Count 16.9 x10^3/uL (4.0-11.0) Red Blood Count 3.30 x10^6/uL (4.30-5.70) Hemoglobin 9.5 g/dL (13.0-17.5) Hematocrit 29.2 % (39.0-53.0) Mean Corpuscular Volume 88 fL (79-100) Mean Corpuscular Hemoglobin 29 pg (25-35) Mean Corpuscular Hemoglobin Concent 33 g/dL (31-37) Red Cell Distribution Width 16.8 % (11.5-14.5) Platelet Count 376 x10^3/uL (140-400) Neutrophils (%) (Auto) 87 % (31-73) Lymphocytes (%) (Auto) 4 % (24-48) Monocytes (%) (Auto) 9 % (0-9) Eosinophils (%) (Auto) 0 % (0-3) Basophils (%) (Auto) 0 % (0-3) Neutrophils # (Auto) 14.7 x10^3/uL (1.8-7.7) Lymphocytes # (Auto) 0.7 x10^3/uL (1.0-4.8) Monocytes # (Auto) 1.4 x10^3/uL (0.0-1.1) Eosinophils # (Auto) 0.1 x10^3/uL (0.0-0.7) Basophils # (Auto) 0.1 x10^3/uL (0.0-0.2) Sodium Level 143 mmol/L (136-145) Potassium Level 4.8 mmol/L (3.5-5.1) Chloride Level 109 mmol/L (98-107) Carbon Dioxide Level 22 mmol/L (21-32) Anion Gap 12 (6-14) Blood Urea Nitrogen 42 mg/dL (8-26) Creatinine 1.0 mg/dL (0.7-1.3) Estimated GFR (Cockcroft-Gault) 71.0 Glucose Level 109 mg/dL (70-99) Calcium Level 7.2 mg/dL (8.5-10.1) Phosphorus Level 4.2 mg/dL (2.6-4.7) Magnesium Level 2.1 mg/dL (1.8-2.4) Test 07/27/21 07:40 O2 Saturation 96 % (92-99) Arterial Blood pH 7.47 (7.35-7.45) Arterial Blood pCO2 at Patient Temp 28 mmHg (35-46) Arterial Blood pO2 at Patient Temp 83 mmHg (65-108) Arterial Blood HCO3 20 mmol/L (21-28) Arterial Blood Base Excess -3 mmol/L (-3-3) FiO2 40 Laboratory Tests Test 07/26/21 12:23 07/26/21 17:31 07/26/21 23:48 07/27/21 05:30 Glucose (Fingerstick) 139 mg/dL (70-99) 136 mg/dL (70-99) 137 mg/dL (70-99) White Blood Count 16.9 x10^3/uL (4.0-11.0) Red Blood Count 3.30 x10^6/uL (4.30-5.70) Hemoglobin 9.5 g/dL (13.0-17.5) Hematocrit 29.2 % (39.0-53.0) Mean Corpuscular Volume 88 fL (79-100) Mean Corpuscular Hemoglobin 29 pg (25-35) Mean Corpuscular Hemoglobin Concent 33 g/dL (31-37) Red Cell Distribution Width 16.8 % (11.5-14.5) Platelet Count 376 x10^3/uL (140-400) Neutrophils (%) (Auto) 87 % (31-73) Lymphocytes (%) (Auto) 4 % (24-48) Monocytes (%) (Auto) 9 % (0-9) Eosinophils (%) (Auto) 0 % (0-3) Basophils (%) (Auto) 0 % (0-3) Neutrophils # (Auto) 14.7 x10^3/uL (1.8-7.7) Lymphocytes # (Auto) 0.7 x10^3/uL (1.0-4.8) Monocytes # (Auto) 1.4 x10^3/uL (0.0-1.1) Eosinophils # (Auto) 0.1 x10^3/uL (0.0-0.7) Basophils # (Auto) 0.1 x10^3/uL (0.0-0.2) Sodium Level 143 mmol/L (136-145) Potassium Level 4.8 mmol/L (3.5-5.1) Chloride Level 109 mmol/L (98-107) Carbon Dioxide Level 22 mmol/L (21-32) Anion Gap 12 (6-14) Blood Urea Nitrogen 42 mg/dL (8-26) Creatinine 1.0 mg/dL (0.7-1.3) Estimated GFR (Cockcroft-Gault) 71.0 Glucose Level 109 mg/dL (70-99) Calcium Level 7.2 mg/dL (8.5-10.1) Phosphorus Level 4.2 mg/dL (2.6-4.7) Magnesium Level 2.1 mg/dL (1.8-2.4) Test 07/27/21 07:40 O2 Saturation 96 % (92-99) Arterial Blood pH 7.47 (7.35-7.45) Arterial Blood pCO2 at Patient Temp 28 mmHg (35-46) Arterial Blood pO2 at Patient Temp 83 mmHg (65-108) Arterial Blood HCO3 20 mmol/L (21-28) Arterial Blood Base Excess -3 mmol/L (-3-3) FiO2 40 Assessment/Plan supportive care Justicifation of Admission Dx: Justifications for Admission: Justification of Admission Dx: Yes Sepsis: Hemodynamic Instability KOURTNEY SNIDER AIR MARSHAL July 27, 2021 11:46
--- NOTE | 2021-07-27 11:58 | NUR ---
SS following up with discharge planning. SS reviewed pt chart and discussed with pt RN. Trach placed on 07/24/2021. Pt had Bronch today. Per RN, pt ready for discharge to LTACH. Pt's son requesting [facility], ; fax [phone]. Clinical updates sent to [facility]. Pt accepted at [facility]. Currently awaiting discharge orders and bed assignment. SS will continue to follow for discharge planning.
--- NOTE | 2021-07-27 12:21 | OP ---
DATE OF SURGERY: 07/27/2021 BRONCHOSCOPY NOTE INDICATION: Cornelia out left lung, likely mucus plug. DESCRIPTION OF PROCEDURE: The informed consent was obtained from the patient's son. He agreed to proceed with the procedure. Bronch was introduced through the tracheostomy tube. The distal trachea visualized. There were thick white mucus secretions seen. There were also almost occluding the left mainstem bronchus. Secretions were very thick. As a result, multiple passes were made through the tracheostomy tube and after at least 8-10 passes, secretions were removed and the patency of the airway achieved. Bronchoalveolar lavage performed from the left lower lobe. The patient tolerated the procedure well. The right lung was examined. All subsegments of right upper, right middle and right lower lobe were examined. No significant secretions seen. IMPRESSION: 1. Thick white mucous secretions causing near complete occlusion of the left main stem bronchus. 2. Therapeutic bronchoscope performed, all secretions were removed. The patency of the airway achieved. 3. No endobronchial lesion seen. 4. Bronchoalveolar lavage performed from left lower lobe and sent for appropriate studies. TAMMY DR: Mc TID: [id number]
--- NOTE | 2021-07-27 13:38 | PDOC ---
Infectious Disease Note Subjective: Subjective Pt is intubated on vent off sedation Discussed with RN at bedside Vital Signs: Vital Signs Vital Signs Date Time Temp Pulse Resp B/P (MAP) Pulse Ox O2 Delivery O2 Flow Rate FiO2 07/27/21 12:00 Mechanical Ventilator 07/27/21 12:00 99.2 80 25 125/53 100 99.2 Physical Exam: PHYSICAL EXAM GENERAL: Sedated, tracheostomy on ventilator HEENT: Normocephalic atraumatic anicteric NECK trach present LUNGS: . Decreased breath sounds. HEART: S1, S2 regular. No murmur. ABDOMEN: Multiple tubes in the post-surgical dressing not opened. scrotal swelling, conway in place EXTREMITIES: No cyanosis, generalized edema SKIN: No generalized rash NEUROLOGIC: Sedated Medications: Inpatient Meds: Medications reviewed. Labs: Lab Laboratory Tests Test 07/26/21 17:31 07/26/21 23:48 07/27/21 05:30 07/27/21 07:40 Glucose (Fingerstick) 136 mg/dL (70-99) 137 mg/dL (70-99) White Blood Count 16.9 x10^3/uL (4.0-11.0) Red Blood Count 3.30 x10^6/uL (4.30-5.70) Hemoglobin 9.5 g/dL (13.0-17.5) Hematocrit 29.2 % (39.0-53.0) Mean Corpuscular Volume 88 fL (79-100) Mean Corpuscular Hemoglobin 29 pg (25-35) Mean Corpuscular Hemoglobin Concent 33 g/dL (31-37) Red Cell Distribution Width 16.8 % (11.5-14.5) Platelet Count 376 x10^3/uL (140-400) Neutrophils (%) (Auto) 87 % (31-73) Lymphocytes (%) (Auto) 4 % (24-48) Monocytes (%) (Auto) 9 % (0-9) Eosinophils (%) (Auto) 0 % (0-3) Basophils (%) (Auto) 0 % (0-3) Neutrophils # (Auto) 14.7 x10^3/uL (1.8-7.7) Lymphocytes # (Auto) 0.7 x10^3/uL (1.0-4.8) Monocytes # (Auto) 1.4 x10^3/uL (0.0-1.1) Eosinophils # (Auto) 0.1 x10^3/uL (0.0-0.7) Basophils # (Auto) 0.1 x10^3/uL (0.0-0.2) Sodium Level 143 mmol/L (136-145) Potassium Level 4.8 mmol/L (3.5-5.1) Chloride Level 109 mmol/L (98-107) Carbon Dioxide Level 22 mmol/L (21-32) Anion Gap 12 (6-14) Blood Urea Nitrogen 42 mg/dL (8-26) Creatinine 1.0 mg/dL (0.7-1.3) Estimated GFR (Cockcroft-Gault) 71.0 Glucose Level 109 mg/dL (70-99) Calcium Level 7.2 mg/dL (8.5-10.1) Phosphorus Level 4.2 mg/dL (2.6-4.7) Magnesium Level 2.1 mg/dL (1.8-2.4) O2 Saturation 96 % (92-99) Arterial Blood pH 7.47 (7.35-7.45) Arterial Blood pCO2 at Patient Temp 28 mmHg (35-46) Arterial Blood pO2 at Patient Temp 83 mmHg (65-108) Arterial Blood HCO3 20 mmol/L (21-28) Arterial Blood Base Excess -3 mmol/L (-3-3) FiO2 40 Objective: Assessment: 1. Perforated viscus, status post exploratory laparotomy, reduction of gastric volvulus, hiatal hernia repair, gastrostomy tube placement and duodenoscopy with tube placement done. 2. Hypotension, requiring vasopressor support. 3. Respiratory failure, requiring ventilatory support. Pleural effusion and pulm infiltrate 4. Renal failure. 5. History of prostate cancer. path + with melanoma 6. Pneumonia 7. CT abdomen and pelvis with intraabdominal fluid collection could be abscess, not a candidate for IR drainage Plan: Plan of Care Merrem ,Zyvox Trend WBC slightly high,could be reactive Monitor labs and cultures F/U BC 07/[address] C/A/P reviewed Gen surgery following Patient is not a candidate for IR drainage at this time cont supportive care Critically ill Prognosis very poor consider palliative care Status post trach Discussed with MARISOL LAYNE MD July 27, 2021 13:38
[2021-07-27] MEDS: FAMOTIDINE 20 MG/2 ML VIAL IVP SCH (20:39)
[2021-07-27] MEDS ORDERED: DEXTROSE 70% IV SCH (22:00)
[2021-07-27] MEDS ORDERED: [UNRECOGNIZED DRUG - OTHER] IV SCH (22:00)
[2021-07-27] MEDS ORDERED: TOTAL PARENTERAL NUTRITION IV SCH (22:00)
[2021-07-27] MEDS ORDERED: AMINO ACID IV SCH (22:00)
[2021-07-27] MEDS: fentaNYL PF VIAL 100 MCG/2 ML VIAL IVP PRN (22:45)
[2021-07-28] VITALS (24 sets, daily range): BP systolic 112–151; BP diastolic 50–83
[2021-07-28] MEDS: MEROPENEM 500 MG in IV NORMAL SALINE 50ML 50 ML IV SCH ×3 (06:12→22:07)
[2021-07-28 06:25] LABS: HEMATOCRIT 25.4 % (39.0-53.0); HEMOGLOBIN 8.4 g/dL (13.0-17.5); RED BLOOD COUNT 2.89 x10^6/uL (4.30-5.70); RED CELL DISTRIBUTION WIDTH 17.1 % (11.5-14.5); WHITE BLOOD COUNT 12.6 x10^3/uL (4.0-11.0)
[2021-07-28 06:53] LABS: ALBUMIN 0.7 g/dL (3.4-5.0); ALBUMIN/GLOBULIN RATIO 0.2 (1.0-1.7); CALCIUM 7.5 mg/dL (8.5-10.1); POTASSIUM 4.4 mmol/L (3.5-5.1); TOTAL BILIRUBIN 0.7 mg/dL (0.2-1.0); TOTAL PROTEIN 5.1 g/dL (6.4-8.2)
[2021-07-28 08:13] LABS: BASE EXCESS ABG -1 mmol/L (-3-3); HCO3 ABG 21 mmol/L (21-28); PCO2 ABG 28 mmHg (35-46); PO2 ABG 104 mmHg (65-108); SAT O2 ABG 98 % (92-99)
[2021-07-28 08:17] LABS: FIO2 ABG 40
--- NOTE | 2021-07-28 09:37 | SNU/HH DC ---
DISCHARGE ORDERS DISCHARGE INFORMATION: DISCHARGE DATE: July 28, 2021 FINAL DIAGNOSIS perforated viscus acute hypoxic respiratory failure metastatic melanoma CONDITION ON DISCHARGE: Stable CODE STATUS: Code Status: Full LTAC: ADMIT TO LTAC: Yes POST DISCHARGE ORDERS: ACTIVITY ORDERS: Activity as tolerated DIET AFTER DISCHARGE: NPO TREATMENT/EQUIPMENT ORDERS: RESPIRATORY EQUIPMENT NEEDED: Oxygen Physical Therapy For: Evalulation/Treatment Occupational Therapy For: Evaluation/Treatment DISCHARGE MEDICATIONS: Home Meds Discontinued Reported Medications Irbesartan/Hydrochlorothiazide (AVALIDE 150-12.5 MG TABLET) 1 Each Tablet, 1 EACH PO DAILY, TAB 06/19/17 Discontinued Scripts [Pantoprazole] 40 MG [address]T.DR Yung Conflict Check, 40 MG PO BIDBFRMEAL, #60 2 Refills Prov:ABIMAEL JACKMAN MD 06/22/17 Sucralfate (CARAFATE) 1 Gm/10 Ml Oral.susp, 1 GM PO TIDBFRMEAL, #60 MISC 2 Refills Prov:ABIMAEL JACKMAN MD 06/22/17 BUTCH HILL MD July 28, 2021 09:37
--- NOTE | 2021-07-28 11:22 | NUR ---
SS following up with discharge planning. SS reviewed pt chart and discussed with pt RN. Discharge orders received for LTACH. Per [facility], no bed available today. Per Dinh at [facility], probable bed available tomorrow morning. Pt accepted at [facility] as well. SS contacted pt's son, Mauricio, and discussed discharge orders and accepting facilities and bed availability. Pt's son reported that [facility] is his #1 choice and is currently declining bed at [facility] for today. Pt's son reported that he wants to give [facility] one more day to have bed available and if no bed available tomorrow will consider being agreeable to [facility]. Pt's RN notified. Discharge orders sent to [facility]. SS will continue to follow for discharge planning.
--- NOTE | 2021-07-28 11:23 | PDOC ---
PULMONARY PROGRESS NOTES DATE: 07/28/21 TIME: 11:20 Subjective Status post tracheostomy 07/24/2021. Remains on assist control mode. Sedation has been taken off in the last 24 hours. Is still weak does not follow commands. Status post bronchoscopy 07/27/2021 for left mucous plug. Chest x-ray from today with improved aeration on the left lung. Vitals Vital Signs Date Time Temp Pulse Resp B/P (MAP) Pulse Ox O2 Delivery O2 Flow Rate FiO2 07/28/21 07:51 100 Ventilator 07/28/21 06:00 68 25 132/58 07/28/21 04:00 99.3 99.3 General: No acute distress, Lethargic Lungs: Clear Cardiovascular: S1, S2 Abdomen: Soft, Other (Distended) Extremities: Other (Significant scrotal edema.) Skin: Warm Labs Laboratory Tests Test 07/26/21 12:23 07/26/21 17:31 07/26/21 23:48 07/27/21 05:30 Glucose (Fingerstick) 139 mg/dL (70-99) 136 mg/dL (70-99) 137 mg/dL (70-99) White Blood Count 16.9 x10^3/uL (4.0-11.0) Red Blood Count 3.30 x10^6/uL (4.30-5.70) Hemoglobin 9.5 g/dL (13.0-17.5) Hematocrit 29.2 % (39.0-53.0) Mean Corpuscular Volume 88 fL (79-100) Mean Corpuscular Hemoglobin 29 pg (25-35) Mean Corpuscular Hemoglobin Concent 33 g/dL (31-37) Red Cell Distribution Width 16.8 % (11.5-14.5) Platelet Count 376 x10^3/uL (140-400) Neutrophils (%) (Auto) 87 % (31-73) Lymphocytes (%) (Auto) 4 % (24-48) Monocytes (%) (Auto) 9 % (0-9) Eosinophils (%) (Auto) 0 % (0-3) Basophils (%) (Auto) 0 % (0-3) Neutrophils # (Auto) 14.7 x10^3/uL (1.8-7.7) Lymphocytes # (Auto) 0.7 x10^3/uL (1.0-4.8) Monocytes # (Auto) 1.4 x10^3/uL (0.0-1.1) Eosinophils # (Auto) 0.1 x10^3/uL (0.0-0.7) Basophils # (Auto) 0.1 x10^3/uL (0.0-0.2) Sodium Level 143 mmol/L (136-145) Potassium Level 4.8 mmol/L (3.5-5.1) Chloride Level 109 mmol/L (98-107) Carbon Dioxide Level 22 mmol/L (21-32) Anion Gap 12 (6-14) Blood Urea Nitrogen 42 mg/dL (8-26) Creatinine 1.0 mg/dL (0.7-1.3) Estimated GFR (Cockcroft-Gault) 71.0 Glucose Level 109 mg/dL (70-99) Calcium Level 7.2 mg/dL (8.5-10.1) Phosphorus Level 4.2 mg/dL (2.6-4.7) Magnesium Level 2.1 mg/dL (1.8-2.4) Test 07/27/21 07:40 07/28/21 06:00 07/28/21 08:05 O2 Saturation 96 % (92-99) 98 % (92-99) Arterial Blood pH 7.47 (7.35-7.45) 7.50 (7.35-7.45) Arterial Blood pCO2 at Patient Temp 28 mmHg (35-46) 28 mmHg (35-46) Arterial Blood pO2 at Patient Temp 83 mmHg (65-108) 104 mmHg (65-108) Arterial Blood HCO3 20 mmol/L (21-28) 21 mmol/L (21-28) Arterial Blood Base Excess -3 mmol/L (-3-3) -1 mmol/L (-3-3) FiO2 40 40 White Blood Count 12.6 x10^3/uL (4.0-11.0) Red Blood Count 2.89 x10^6/uL (4.30-5.70) Hemoglobin 8.4 g/dL (13.0-17.5) Hematocrit 25.4 % (39.0-53.0) Mean Corpuscular Volume 88 fL (79-100) Mean Corpuscular Hemoglobin 29 pg (25-35) Mean Corpuscular Hemoglobin Concent 33 g/dL (31-37) Red Cell Distribution Width 17.1 % (11.5-14.5) Platelet Count 318 x10^3/uL (140-400) Sodium Level 140 mmol/L (136-145) Potassium Level 4.4 mmol/L (3.5-5.1) Chloride Level 108 mmol/L (98-107) Carbon Dioxide Level 24 mmol/L (21-32) Anion Gap 8 (6-14) Blood Urea Nitrogen 44 mg/dL (8-26) Creatinine 1.0 mg/dL (0.7-1.3) Estimated GFR (Cockcroft-Gault) 71.0 BUN/Creatinine Ratio 44 (6-20) Glucose Level 118 mg/dL (70-99) Calcium Level 7.5 mg/dL (8.5-10.1) Total Bilirubin 0.7 mg/dL (0.2-1.0) Aspartate Amino Transf (AST/SGOT) 222 U/L (15-37) Alanine Aminotransferase (ALT/SGPT) 166 U/L (16-63) Alkaline Phosphatase 373 U/L (46-116) Total Protein 5.1 g/dL (6.4-8.2) Albumin 0.7 g/dL (3.4-5.0) Albumin/Globulin Ratio 0.2 (1.0-1.7) Laboratory Tests Test 07/28/21 06:00 07/28/21 08:05 White Blood Count 12.6 x10^3/uL (4.0-11.0) Red Blood Count 2.89 x10^6/uL (4.30-5.70) Hemoglobin 8.4 g/dL (13.0-17.5) Hematocrit 25.4 % (39.0-53.0) Mean Corpuscular Volume 88 fL (79-100) Mean Corpuscular Hemoglobin 29 pg (25-35) Mean Corpuscular Hemoglobin Concent 33 g/dL (31-37) Red Cell Distribution Width 17.1 % (11.5-14.5) Platelet Count 318 x10^3/uL (140-400) Sodium Level 140 mmol/L (136-145) Potassium Level 4.4 mmol/L (3.5-5.1) Chloride Level 108 mmol/L (98-107) Carbon Dioxide Level 24 mmol/L (21-32) Anion Gap 8 (6-14) Blood Urea Nitrogen 44 mg/dL (8-26) Creatinine 1.0 mg/dL (0.7-1.3) Estimated GFR (Cockcroft-Gault) 71.0 BUN/Creatinine Ratio 44 (6-20) Glucose Level 118 mg/dL (70-99) Calcium Level 7.5 mg/dL (8.5-10.1) Total Bilirubin 0.7 mg/dL (0.2-1.0) Aspartate Amino Transf (AST/SGOT) 222 U/L (15-37) Alanine Aminotransferase (ALT/SGPT) 166 U/L (16-63) Alkaline Phosphatase 373 U/L (46-116) Total Protein 5.1 g/dL (6.4-8.2) Albumin 0.7 g/dL (3.4-5.0) Albumin/Globulin Ratio 0.2 (1.0-1.7) O2 Saturation 98 % (92-99) Arterial Blood pH 7.50 (7.35-7.45) Arterial Blood pCO2 at Patient Temp 28 mmHg (35-46) Arterial Blood pO2 at Patient Temp 104 mmHg (65-108) Arterial Blood HCO3 21 mmol/L (21-28) Arterial Blood Base Excess -1 mmol/L (-3-3) FiO2 40 Medications Active Scripts Medications Dose Route/Sig Max Daily Dose Days Date Category [Pantoprazole] 40 MG Tablet.dr 40 Mg PO BIDBFRMEAL 06/22/17 Rx Carafate (Sucralfate) 1 Gm/10 Ml Oral.susp 1 Gm PO TIDBFRMEAL 06/22/17 Rx Avalide 150-12.5 Mg Tablet (Irbesartan/Hydrochlorothiazide) 1 Each Tablet 1 Each PO DAILY 06/19/17 Reported Comments Chest x-ray reviewed 07/28/2021. There are bilateral infiltrates. There is improved aeration on the left lung. Chest x-ray reviewed 07/27/2021. Mildly prominent vascular markings and johnson out left lung with ipsilateral mediastinal shift. Likely mucous plug. Chest x-ray reviewed 07/23/2021 Left pleural effusion and infiltrate. CT chest dated 07/19/2021 reviewed. Bilateral lung nodules consistent with metastatic disease. Mild to moderate bilateral pleural effusions with associated compressive atelectasis. Chest x-ray reviewed 07/17/2021. Mild progression of interstitial infiltrates and pleural effusion consistent with CHF. There is a skinfold on the left apex unlikely pneumothorax. Impression . Acute respiratory failure multifactorial status post exploratory laparotomy for perforated viscus. Status post tracheostomy 07/24/2021. Septic shock. Of Levophed. Oxygen requirement increased to 50%. We will repeat chest x-ray and give extra Lasix today. Fever, per ID. Acute renal failure. History of prostate cancer Severe protein malnutrition present upon admission. 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 Bilateral lung nodules suggestive of metastasis to the lungs. Bilateral moderate pleural effusions with associated atelectasis related to low oncotic pressure. CT chest reviewed dated 07/19/2021 Toxic metabolic encephalopathy, improving Abnormal liver function test. Abnormal chest x-ray. Now whiteout left lung 07/27/2021. Status post bronchoscopy with removal of thick mucous plug from the left lung. \ Plan . Updated 07/28 Status post tracheostomy 07/24/2021. Status post bronchoscopy 07/27/2021 for mucous plug with whiteout left lung. Mucous plug removed with improved aeration of the left lung. Continue to monitor off sedation. Will initiate CPAP trials. off Levophed. Follow-up chest x-ray as needed. As needed Lasix. I have talked to patient's son in detail. Continue present aggressive care. Likely transfer to LTAC in a.m. Updated 07/27 Status post tracheostomy 07/24/2021. Chest x-ray now with johnson out left lung. Will benefit from bronchoscopy. Continue to monitor off sedation. We will start CPAP trials as tolerated after bronchoscopy. off Levophed. Repeat chest x-ray in a.m. As needed Lasix. I have talked to patient's son in detail. He agrees to proceed with bronchoscopy. Continue present aggressive care. Likely transfer to LTAC later today or a.m. Updated 07/26 Status post tracheostomy 07/24/2021. Re- sedated postprocedure. Now off Versed but on a fentanyl drip. Not fully awake. Will discontinue fentanyl drip and use as needed. We will gradually wean sedation and assess for CPAP trial. off Levophed. Repeat chest x-ray in a.m. Extra IV Lasix today. I have talked to patient's son in detail. Continue present aggressive care. Likely transfer to LTAC next week Updated 07/25 Status post tracheostomy 07/24/2021. Re- sedated postprocedure. We will gradually wean sedation and assess for CPAP trial in the next 24 hours. Wean off Levophed. Labs reviewed updated Will proceed with aggressive weaning from next 24 hours. I have talked to patient's son in detail. Continue present aggressive care. Likely transfer to LTAC next week YASMIN WEAVER MD July 28, 2021 11:23
--- NOTE | 2021-07-28 11:59 | PDOC ---
SURGICAL PROGRESS NOTE DATE: 07/28/21 TIME: 11:58 Subjective Pt on vent and sedated Vital Signs Vital Signs Date Time Temp Pulse Resp B/P (MAP) Pulse Ox O2 Delivery O2 Flow Rate FiO2 07/28/21 11:40 100 Ventilator 07/28/21 06:00 68 25 132/58 07/28/21 04:00 99.3 99.3 I&O Intake and Output 07/28/21 07:00 Intake Total 2573.5 ml Output Total 1710 ml Balance 863.5 ml IV Total 2416.5 ml Other 157 ml Output Urine Total 1210 ml Drainage Total 500 ml PATIENT HAS A PEDRO: Yes (accurate i and os) General: No acute distress Abdomen: Soft, No tenderness Labs Laboratory Tests Test 07/26/21 12:23 07/26/21 17:31 07/26/21 23:48 07/27/21 05:30 Glucose (Fingerstick) 139 mg/dL (70-99) 136 mg/dL (70-99) 137 mg/dL (70-99) White Blood Count 16.9 x10^3/uL (4.0-11.0) Red Blood Count 3.30 x10^6/uL (4.30-5.70) Hemoglobin 9.5 g/dL (13.0-17.5) Hematocrit 29.2 % (39.0-53.0) Mean Corpuscular Volume 88 fL (79-100) Mean Corpuscular Hemoglobin 29 pg (25-35) Mean Corpuscular Hemoglobin Concent 33 g/dL (31-37) Red Cell Distribution Width 16.8 % (11.5-14.5) Platelet Count 376 x10^3/uL (140-400) Neutrophils (%) (Auto) 87 % (31-73) Lymphocytes (%) (Auto) 4 % (24-48) Monocytes (%) (Auto) 9 % (0-9) Eosinophils (%) (Auto) 0 % (0-3) Basophils (%) (Auto) 0 % (0-3) Neutrophils # (Auto) 14.7 x10^3/uL (1.8-7.7) Lymphocytes # (Auto) 0.7 x10^3/uL (1.0-4.8) Monocytes # (Auto) 1.4 x10^3/uL (0.0-1.1) Eosinophils # (Auto) 0.1 x10^3/uL (0.0-0.7) Basophils # (Auto) 0.1 x10^3/uL (0.0-0.2) Sodium Level 143 mmol/L (136-145) Potassium Level 4.8 mmol/L (3.5-5.1) Chloride Level 109 mmol/L (98-107) Carbon Dioxide Level 22 mmol/L (21-32) Anion Gap 12 (6-14) Blood Urea Nitrogen 42 mg/dL (8-26) Creatinine 1.0 mg/dL (0.7-1.3) Estimated GFR (Cockcroft-Gault) 71.0 Glucose Level 109 mg/dL (70-99) Calcium Level 7.2 mg/dL (8.5-10.1) Phosphorus Level 4.2 mg/dL (2.6-4.7) Magnesium Level 2.1 mg/dL (1.8-2.4) Test 07/27/21 07:40 07/28/21 06:00 07/28/21 08:05 O2 Saturation 96 % (92-99) 98 % (92-99) Arterial Blood pH 7.47 (7.35-7.45) 7.50 (7.35-7.45) Arterial Blood pCO2 at Patient Temp 28 mmHg (35-46) 28 mmHg (35-46) Arterial Blood pO2 at Patient Temp 83 mmHg (65-108) 104 mmHg (65-108) Arterial Blood HCO3 20 mmol/L (21-28) 21 mmol/L (21-28) Arterial Blood Base Excess -3 mmol/L (-3-3) -1 mmol/L (-3-3) FiO2 40 40 White Blood Count 12.6 x10^3/uL (4.0-11.0) Red Blood Count 2.89 x10^6/uL (4.30-5.70) Hemoglobin 8.4 g/dL (13.0-17.5) Hematocrit 25.4 % (39.0-53.0) Mean Corpuscular Volume 88 fL (79-100) Mean Corpuscular Hemoglobin 29 pg (25-35) Mean Corpuscular Hemoglobin Concent 33 g/dL (31-37) Red Cell Distribution Width 17.1 % (11.5-14.5) Platelet Count 318 x10^3/uL (140-400) Sodium Level 140 mmol/L (136-145) Potassium Level 4.4 mmol/L (3.5-5.1) Chloride Level 108 mmol/L (98-107) Carbon Dioxide Level 24 mmol/L (21-32) Anion Gap 8 (6-14) Blood Urea Nitrogen 44 mg/dL (8-26) Creatinine 1.0 mg/dL (0.7-1.3) Estimated GFR (Cockcroft-Gault) 71.0 BUN/Creatinine Ratio 44 (6-20) Glucose Level 118 mg/dL (70-99) Calcium Level 7.5 mg/dL (8.5-10.1) Total Bilirubin 0.7 mg/dL (0.2-1.0) Aspartate Amino Transf (AST/SGOT) 222 U/L (15-37) Alanine Aminotransferase (ALT/SGPT) 166 U/L (16-63) Alkaline Phosphatase 373 U/L (46-116) Total Protein 5.1 g/dL (6.4-8.2) Albumin 0.7 g/dL (3.4-5.0) Albumin/Globulin Ratio 0.2 (1.0-1.7) Laboratory Tests Test 07/28/21 06:00 07/28/21 08:05 White Blood Count 12.6 x10^3/uL (4.0-11.0) Red Blood Count 2.89 x10^6/uL (4.30-5.70) Hemoglobin 8.4 g/dL (13.0-17.5) Hematocrit 25.4 % (39.0-53.0) Mean Corpuscular Volume 88 fL (79-100) Mean Corpuscular Hemoglobin 29 pg (25-35) Mean Corpuscular Hemoglobin Concent 33 g/dL (31-37) Red Cell Distribution Width 17.1 % (11.5-14.5) Platelet Count 318 x10^3/uL (140-400) Sodium Level 140 mmol/L (136-145) Potassium Level 4.4 mmol/L (3.5-5.1) Chloride Level 108 mmol/L (98-107) Carbon Dioxide Level 24 mmol/L (21-32) Anion Gap 8 (6-14) Blood Urea Nitrogen 44 mg/dL (8-26) Creatinine 1.0 mg/dL (0.7-1.3) Estimated GFR (Cockcroft-Gault) 71.0 BUN/Creatinine Ratio 44 (6-20) Glucose Level 118 mg/dL (70-99) Calcium Level 7.5 mg/dL (8.5-10.1) Total Bilirubin 0.7 mg/dL (0.2-1.0) Aspartate Amino Transf (AST/SGOT) 222 U/L (15-37) Alanine Aminotransferase (ALT/SGPT) 166 U/L (16-63) Alkaline Phosphatase 373 U/L (46-116) Total Protein 5.1 g/dL (6.4-8.2) Albumin 0.7 g/dL (3.4-5.0) Albumin/Globulin Ratio 0.2 (1.0-1.7) O2 Saturation 98 % (92-99) Arterial Blood pH 7.50 (7.35-7.45) Arterial Blood pCO2 at Patient Temp 28 mmHg (35-46) Arterial Blood pO2 at Patient Temp 104 mmHg (65-108) Arterial Blood HCO3 21 mmol/L (21-28) Arterial Blood Base Excess -1 mmol/L (-3-3) FiO2 40 Assessment/Plan s/p xlap, s/p trach-intact cont supportive care d/w pulm Justicifation of Admission Dx: Justifications for Admission: Justification of Admission Dx: Yes Sepsis: Hemodynamic Instability STEVEN ZENDEJAS MD July 28, 2021 11:59
--- NOTE | 2021-07-28 12:21 | PN ---
DATE: 07/27/2021 SUBJECTIVE: The patient is resting, slightly propped up in bed, somewhat tachypneic, lethargic, pale, not jaundiced, cyanosed, no lymphadenopathy, no thyromegaly, no jugular venous distention, but generalized anasarca. PHYSICAL EXAMINATION: VITAL SIGNS: His heart rate was 87, blood pressure was 141/52, temperature was 99.8, respiratory rate 23, and oxygen saturation was 100% on FiO2 of 40%. HEAD, EYES, EARS, NOSE AND THROAT: Normocephalic, atraumatic. NECK: Supple with tracheostomy tube in place. HEART: Showed normal first and second heart sounds. No gallop or murmur. CHEST: Shows central trachea. Good chest expansion with air entry on the right side, dull percussion noted and absent breath sounds on the left side. ABDOMEN: Soft, nontender. NEUROLOGIC: He is very lethargic. His intake was 1400, output was 1135. LABORATORY DATA: As of this morning, his white cell count was 16.9, hemoglobin 9.5, hematocrit 29, MCV 88 and platelet count 376,000. Serum sodium 143, potassium 4.8, chloride 109, bicarbonate 22, anion gap of 12, BUN 42, creatinine 1, estimated GFR was 71 mL per minute. His glucose 109, calcium was 7.2, phosphorus 4.2, magnesium 2.1. ASSESSMENT: 1. Perforated viscus, status post exploratory laparotomy, reduction of the gastric volvulus and hiatal hernia repair, gastrostomy tube placement as well as jejunostomy tube placement. 2. Acute hypoxic respiratory failure for which he continued to be intubated and mechanically ventilated. He eventually had a tracheostomy tube placed successfully. He continues to be encephalopathic, although he is off sedation as he is no longer on Versed and fentanyl and Levophed was discontinued. He is maintaining his oxygen saturation at 99% on FiO2 of 40%. 3. His chest x-ray showed total whiteout of the left hemithorax, likely due to mucus plugging as well as left-sided pleural effusion. 4. Hypertension. The patient is currently normotensive. 5. Acute kidney injury has improved with his creatinine is down to 1 mg/dL. 6. His white cell count was high as 19.8 and we did repeat blood culture. He is now on meropenem, daptomycin and linezolid. His CT scan of the abdomen showed that he has what seemed to be an abscess in the right upper quadrant front of the left hepatic lobe. His white cell count is trending down. 7. His liver enzymes are trending down, although it continued to be slightly elevated. 8. He has severe protein-calorie malnutrition. Serum albumin is only 0.8 g per liter. 9. He has metastatic melanoma, for which he was seen by the oncologist; however, no plans for any treatment for the time being. 10. He has multiple preexisting conditions include: A. Hypertension. B. Hiatal hernia. C. Gastroesophageal reflux disease. D. Gastric ulcer. E. Chronic constipation. PLAN: To continue with mechanical ventilation, wean as tolerated. Continue with TPN. Continue with IV antibiotic given that total whiteout of the left lung, he probably will need bronchoscopy and to remove the mucus plugs and/or thoracentesis. He has significant left-sided pleural effusion. MEGAN DR: Marta TID: [id number]
--- NOTE | 2021-07-28 12:22 | PN ---
DATE: 07/28/2021 SUBJECTIVE: The patient is resting, slightly propped up in bed, in no apparent respiratory distress. He is off sedation, continued to be on mechanical ventilation, maintaining his oxygen saturation at 99% on FiO2 of 40%. He continues to be on TPN and IV antibiotic. PHYSICAL EXAMINATION: GENERAL: When I examined him, he was pale, but no jaundiced, cyanosed. No thyromegaly. No jugular venous distention. No limb edema. VITAL SIGNS: His heart rate was 68, blood pressure is 132/58, temperature 99.3, respiratory rate 25, and oxygen saturation was 100%. HEAD, EYES, EARS, NOSE, AND THROAT: Normocephalic, atraumatic. NECK: Supple, with tracheostomy tube in place. HEART: Showed normal first and second heart sounds. No gallop or murmur. CHEST: Shows central trachea. Good air entry on the right side, reduced chest expansion with air entry on the left side. ABDOMEN: Soft, nontender. NEUROLOGIC: He continues to be encephalopathic, does open his eyes, tracks, and occasionally follows commands. His intake over the last 24 hours was 2500, output was 2400. LABORATORY DATA: As of this morning, his white cell count was 12.6, hemoglobin 8.4, hematocrit 25, MCV 88 and platelet count 318,000. His chemistry showed a serum sodium 140, potassium 4.4, chloride 108, bicarbonate 24, anion gap of 8, BUN 44, creatinine 1, estimated GFR was 71 mL per minute. His glucose 118, calcium was 7.5. Total bilirubin 0.7. His AST, ALT and alkaline phosphatase are all rising. His total protein was 5.1, albumin was 0.7. ASSESSMENT: 1. Perforated viscus, status post exploratory laparotomy, reduction of the gastric volvulus and hiatal hernia repair with gastrostomy tube placement as well as jejunostomy tube placement. 2. Acute hypoxic respiratory failure for which he continued to be intubated, mechanical ventilated. He has had tracheostomy tube placed successfully. 3. He has a total opacification of the left hemithorax, which he underwent bronchoscopy. 4. Hypotension, resolved. He is off Levophed. 5. Acute kidney injury, improved. His most recent serum creatinine is 1 mg/dL 6. His white cell count was elevated and has risen up to 19.8 for which we did repeat his blood culture and he is now on meropenem, daptomycin and linezolid. CT scan of the abdomen showed that he has what seemed to be an abscess in the right upper quadrant and in front of the left hepatic lobe. His white cell count is trending down gradually, as of this morning down to 12.6. 7. His liver enzymes are trending upward. 8. He has severe protein-calorie malnutrition. Serum albumin is only 0.7 g/dL. 9. He has metastatic melanoma, for which he was seen by the oncologist, but no plans for any treatment for the time being. 10. The patient has multiple preexisting conditions including: A. Hypertension. B. Hiatal hernia. C. Gastroesophageal reflux disease. D. Gastric ulcer. E. Chronic constipation. PLAN: To continue with mechanical ventilation. Continue with TPN. Continue IV antibiotic. The patient cannot be transferred today to [facility] as they do not have enough nursing staff according to them. MIGEL DR: Marta TID: [id number]
--- NOTE | 2021-07-28 12:23 | RAD ---
EXAM: Chest, single view. HISTORY: Bronchoscopy. COMPARISON: 07/27/2021 FINDINGS: A frontal view of the chest is obtained. There has been interval increase in aeration of th e left lung likely due to decrease in a moderate left pleural effusion. There is stable small right p leural effusion and diffuse lower lobe predominant interstitial infiltrate. There are multiple bilate ral pulmonary nodules. There is a stable cardiac silhouette. There is a left subclavian central venou s catheter with the tip oriented obliquely at the superior vena cava. There is a tracheostomy device in expected position. There are incidental advanced degenerative changes involving the right shoulder . IMPRESSION: 1. Improved aeration of the left lung likely due to a decreased moderate pleural effusion. 2. Stable small right pleural effusion and diffuse lower lobe predominant interstitial infiltrate. 3. Multiple bilateral pulmonary nodules, better characterized on the recent CT performed 07/19/2021. Electronically signed by: Rosalee Chauhan MD (07/28/2021 9:50 AM) [id number]
[2021-07-28] MEDS: TPN PER PHARMACY MC PRN (12:27)
--- NOTE | 2021-07-28 12:35 | NUR ---
Pharmacy TPN Dosing Note S: AZEB COOMBS is a 85 year old M Currently receiving Central Continuous TPN started 07/15/21 B:Pertinent PMH: NPO SINCE 07/12, PERFERATED BOWEL Height: 5 feet, 4 inches Weight: 79.4 kg Current diet: NPO LABS: Sodium: 140 Potassium: 4.4 Chloride: 108 Calcium: 7.5 Corrected Calcium: 10.14 Magnesium: 2.1 CO2: 24 SCr: 1 Glucose: 118 Albumin: 0.7 AST: 222 ALT: 166 TPN FORMULA: TPN TYPE: Central Continuous AMINO ACIDS: 75 gm DEXTROSE: 210 gm LIPIDS: 30 gm SODIUM CHLORIDE: 40 mEq SODIUM ACETATE: -- mEq SODIUM PHOSPHATE: -- mmol POTASSIUM CHLORIDE: 15 mEq POTASSIUM ACETATE: 15 mEq POTASSIUM PHOSPHATE: 10 mmol MAGNESIUM: 4 mEq CALCIUM: -- mEq INSULIN: -- units MULTIPLE VITAMIN: 10 ml TRACE ELEMENTS: 1 mL ml(s) TPN PLAN: liver function elevated, will split k into 15 meq kacetate and 15 meq kcl. R: Continue TPN at 70 ml/hr Will monitor electrolytes, glucose, and tolerance to TPN. FELICE BALDERAS [facility], 07/28/21 [id number]
--- NOTE | 2021-07-28 15:22 | PDOC ---
Infectious Disease Note Subjective: Subjective Patient remains on vent Opens eyes transiently. Does not follow commands off sedation Discussed with RN at bedside Vital Signs: Vital Signs Vital Signs Date Time Temp Pulse Resp B/P (MAP) Pulse Ox O2 Delivery O2 Flow Rate FiO2 07/28/21 12:57 100 Ventilator 07/28/21 06:00 68 25 132/58 07/28/21 04:00 99.3 99.3 Physical Exam: PHYSICAL EXAM GENERAL: Sedated, tracheostomy on ventilator HEENT: Normocephalic atraumatic anicteric NECK trach present LUNGS: . Decreased breath sounds. HEART: S1, S2 regular. No murmur. ABDOMEN: Multiple tubes in the post-surgical dressing not opened. scrotal swelling, conway in place EXTREMITIES: No cyanosis, generalized edema SKIN: No generalized rash NEUROLOGIC: Sedated Medications: Inpatient Meds: Medications reviewed. Labs: Lab Laboratory Tests Test 07/28/21 06:00 07/28/21 08:05 White Blood Count 12.6 x10^3/uL (4.0-11.0) Red Blood Count 2.89 x10^6/uL (4.30-5.70) Hemoglobin 8.4 g/dL (13.0-17.5) Hematocrit 25.4 % (39.0-53.0) Mean Corpuscular Volume 88 fL (79-100) Mean Corpuscular Hemoglobin 29 pg (25-35) Mean Corpuscular Hemoglobin Concent 33 g/dL (31-37) Red Cell Distribution Width 17.1 % (11.5-14.5) Platelet Count 318 x10^3/uL (140-400) Sodium Level 140 mmol/L (136-145) Potassium Level 4.4 mmol/L (3.5-5.1) Chloride Level 108 mmol/L (98-107) Carbon Dioxide Level 24 mmol/L (21-32) Anion Gap 8 (6-14) Blood Urea Nitrogen 44 mg/dL (8-26) Creatinine 1.0 mg/dL (0.7-1.3) Estimated GFR (Cockcroft-Gault) 71.0 BUN/Creatinine Ratio 44 (6-20) Glucose Level 118 mg/dL (70-99) Calcium Level 7.5 mg/dL (8.5-10.1) Total Bilirubin 0.7 mg/dL (0.2-1.0) Aspartate Amino Transf (AST/SGOT) 222 U/L (15-37) Alanine Aminotransferase (ALT/SGPT) 166 U/L (16-63) Alkaline Phosphatase 373 U/L (46-116) Total Protein 5.1 g/dL (6.4-8.2) Albumin 0.7 g/dL (3.4-5.0) Albumin/Globulin Ratio 0.2 (1.0-1.7) O2 Saturation 98 % (92-99) Arterial Blood pH 7.50 (7.35-7.45) Arterial Blood pCO2 at Patient Temp 28 mmHg (35-46) Arterial Blood pO2 at Patient Temp 104 mmHg (65-108) Arterial Blood HCO3 21 mmol/L (21-28) Arterial Blood Base Excess -1 mmol/L (-3-3) FiO2 40 Objective: Assessment: 1. Perforated viscus, status post exploratory laparotomy, reduction of gastric volvulus, hiatal hernia repair, gastrostomy tube placement and duodenoscopy with tube placement done. 2. Hypotension, requiring vasopressor support. 3. Respiratory failure, requiring ventilatory support. Pleural effusion and pulm infiltrate 4. Renal failure. 5. History of prostate cancer. path + with melanoma 6. Pneumonia 7. CT abdomen and pelvis with intraabdominal fluid collection could be abscess, not a candidate for IR drainage Leucocytosis fluctuates Plan: Plan of Care Merrem ,Zyvox Trend WBC Monitor labs and cultures F/U BC 07/[address] C/A/P reviewed Gen surgery following Patient is not a candidate for IR drainage at this time cont supportive care Critically ill Prognosis very poor consider palliative care Status post trach MARISOL MOSS MD July 28, 2021 15:22
[2021-07-28] MEDS: FAMOTIDINE 20 MG/2 ML VIAL IVP SCH (21:02)
[2021-07-28] MEDS ORDERED: TOTAL PARENTERAL NUTRITION IV SCH (22:00)
[2021-07-28] MEDS ORDERED: [UNRECOGNIZED DRUG - OTHER] IV SCH (22:00)
[2021-07-28] MEDS ORDERED: DEXTROSE 70% IV SCH (22:00)
[2021-07-28] MEDS ORDERED: AMINO ACID IV SCH (22:00)
[2021-07-28] MEDS: fentaNYL PF VIAL 100 MCG/2 ML VIAL IVP PRN (22:42)
[2021-07-29] VITALS (18 sets, daily range): BP systolic 103–120; BP diastolic 45–66
[2021-07-29] MEDS: MEROPENEM 500 MG in IV NORMAL SALINE 50ML 50 ML IV SCH ×2 (05:59→14:10)
--- NOTE | 2021-07-29 09:12 | PDOC ---
PULMONARY PROGRESS NOTES DATE: 07/29/21 TIME: 09:08 Subjective Status post tracheostomy 07/24/2021. Appears more awake. Patient has been on CPAP trial intermittently since yesterday. Status post bronchoscopy 07/27/2021 for left mucous plug. Chest x-ray improved aeration on the left lung post bronchoscopy. Vitals Vital Signs Date Time Temp Pulse Resp B/P (MAP) Pulse Ox O2 Delivery O2 Flow Rate FiO2 07/29/21 08:00 Mechanical Ventilator 07/29/21 07:47 100 07/29/21 07:10 59 24 106/55 07/29/21 04:00 99.2 99.2 General: No acute distress Lungs: Clear Cardiovascular: S1, S2 Abdomen: Soft, Other (Distended) Extremities: Other (Significant scrotal edema.) Skin: Warm Labs Laboratory Tests Test 07/28/21 06:00 07/28/21 08:05 White Blood Count 12.6 x10^3/uL (4.0-11.0) Red Blood Count 2.89 x10^6/uL (4.30-5.70) Hemoglobin 8.4 g/dL (13.0-17.5) Hematocrit 25.4 % (39.0-53.0) Mean Corpuscular Volume 88 fL (79-100) Mean Corpuscular Hemoglobin 29 pg (25-35) Mean Corpuscular Hemoglobin Concent 33 g/dL (31-37) Red Cell Distribution Width 17.1 % (11.5-14.5) Platelet Count 318 x10^3/uL (140-400) Sodium Level 140 mmol/L (136-145) Potassium Level 4.4 mmol/L (3.5-5.1) Chloride Level 108 mmol/L (98-107) Carbon Dioxide Level 24 mmol/L (21-32) Anion Gap 8 (6-14) Blood Urea Nitrogen 44 mg/dL (8-26) Creatinine 1.0 mg/dL (0.7-1.3) Estimated GFR (Cockcroft-Gault) 71.0 BUN/Creatinine Ratio 44 (6-20) Glucose Level 118 mg/dL (70-99) Calcium Level 7.5 mg/dL (8.5-10.1) Total Bilirubin 0.7 mg/dL (0.2-1.0) Aspartate Amino Transf (AST/SGOT) 222 U/L (15-37) Alanine Aminotransferase (ALT/SGPT) 166 U/L (16-63) Alkaline Phosphatase 373 U/L (46-116) Total Protein 5.1 g/dL (6.4-8.2) Albumin 0.7 g/dL (3.4-5.0) Albumin/Globulin Ratio 0.2 (1.0-1.7) O2 Saturation 98 % (92-99) Arterial Blood pH 7.50 (7.35-7.45) Arterial Blood pCO2 at Patient Temp 28 mmHg (35-46) Arterial Blood pO2 at Patient Temp 104 mmHg (65-108) Arterial Blood HCO3 21 mmol/L (21-28) Arterial Blood Base Excess -1 mmol/L (-3-3) FiO2 40 Medications Active Scripts Medications Dose Route/Sig Max Daily Dose Days Date Category [Pantoprazole] 40 MG Tablet.dr 40 Mg PO BIDBFRMEAL 06/22/17 Rx Carafate (Sucralfate) 1 Gm/10 Ml Oral.susp 1 Gm PO TIDBFRMEAL 06/22/17 Rx Avalide 150-12.5 Mg Tablet (Irbesartan/Hydrochlorothiazide) 1 Each Tablet 1 Each PO DAILY 06/19/17 Reported Comments Chest x-ray reviewed 07/28/2021. There are bilateral infiltrates. There is improved aeration on the left lung. Chest x-ray reviewed 07/27/2021. Mildly prominent vascular markings and johnson out left lung with ipsilateral mediastinal shift. Likely mucous plug. Chest x-ray reviewed 07/23/2021 Left pleural effusion and infiltrate. CT chest dated 07/19/2021 reviewed. Bilateral lung nodules consistent with metastatic disease. Mild to moderate bilateral pleural effusions with associated compressive atelectasis. Chest x-ray reviewed 07/17/2021. Mild progression of interstitial infiltrates and pleural effusion consistent with CHF. There is a skinfold on the left apex unlikely pneumothorax. Impression . Acute respiratory failure multifactorial status post exploratory laparotomy for perforated viscus. Status post tracheostomy 07/24/2021. Septic shock. Of Levophed. Low-grade fever, antibiotics per ID. Acute renal failure. Mostly prerenal azotemia now. History of prostate cancer Severe protein malnutrition present upon admission. 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 Bilateral lung nodules suggestive of metastasis to the lungs. Bilateral moderate pleural effusions with associated atelectasis related to low oncotic pressure. CT chest reviewed dated 07/19/2021 Toxic/ metabolic encephalopathy, improving Abnormal liver function test. Abnormal chest x-ray. whiteout left lung 07/27/2021. Status post bronchoscopy with removal of thick mucous plug from the left lung. \ Plan . Updated 07/29 Status post tracheostomy 07/24/2021. Status post bronchoscopy 07/27/2021 for mucous plug with whiteout left lung. Mucous plug removed with improved aeration of the left lung. Continue to monitor off sedation. Continue CPAP trials. off Levophed. Follow-up chest x-ray as needed. As needed Lasix. I have talked to patient's son in detail on a daily basis.. Continue present aggressive care. Likely transfer to LTAC today. Updated 07/28 Status post tracheostomy 07/24/2021. Status post bronchoscopy 07/27/2021 for mucous plug with whiteout left lung. Mucous plug removed with improved aeration of the left lung. Continue to monitor off sedation. Will initiate CPAP trials. off Levophed. Follow-up chest x-ray as needed. As needed Lasix. I have talked to patient's son in detail. Continue present aggressive care. Likely transfer to LTAC in .. YASMIN WEAVER MD July 29, 2021 09:12
--- NOTE | 2021-07-29 10:17 | PDOC ---
PROGRESS NOTES Date of Service DATE: 07/29/21 TIME: 10:15 Assessment Metabolic encephalopathy, may have had some anoxia? Perforated viscus, status-post exploratory laparotomy, gastrotomy tube placemen t, hernia repair surgery, respiratory failure, hypotension requiring vasopressors, sepsis, acute kidney injury, abnormal liver function tests, history of prostrate cancer anoxic encephalopathy. History of hypertension, hiatal hernia, gastroesophageal reflux disease, gastric ulcer, constipation Prostate cancer and melanoma, metastatic S/P trache Plan Continue current management, additional neurological studies would not change management facilitator Subjective None Objective Vital Signs Date Time Temp Pulse Resp B/P (MAP) Pulse Ox O2 Delivery O2 Flow Rate FiO2 07/29/21 09:00 60 32 117/56 100 Ventilator 07/29/21 08:00 98.9 98.9 Intake and Output 07/29/21 07:00 Intake Total 2116 ml Output Total 1540 ml Balance 576 ml IV Total 2116 ml Output Urine Total 1085 ml Drainage Total 455 ml PHYSICAL EXAM Sleepy, moves to command, sometimes seems to regard observer, still on ventilator. Trached PERRL. EOMI. CN: no focal findings. Muscle tone: normal. Muscle strength: 1/5 DTR: 0+ Plantar reflex: Silent Gait: not examined in bed. Sensory exam: no abnormal findings. No cerebellar signs elicited. Review of Relevant I have reviewed the following items joanne (where applicable) has been applied. Labs Laboratory Tests Test 07/28/21 06:00 07/28/21 08:05 White Blood Count 12.6 x10^3/uL (4.0-11.0) Red Blood Count 2.89 x10^6/uL (4.30-5.70) Hemoglobin 8.4 g/dL (13.0-17.5) Hematocrit 25.4 % (39.0-53.0) Mean Corpuscular Volume 88 fL (79-100) Mean Corpuscular Hemoglobin 29 pg (25-35) Mean Corpuscular Hemoglobin Concent 33 g/dL (31-37) Red Cell Distribution Width 17.1 % (11.5-14.5) Platelet Count 318 x10^3/uL (140-400) Sodium Level 140 mmol/L (136-145) Potassium Level 4.4 mmol/L (3.5-5.1) Chloride Level 108 mmol/L (98-107) Carbon Dioxide Level 24 mmol/L (21-32) Anion Gap 8 (6-14) Blood Urea Nitrogen 44 mg/dL (8-26) Creatinine 1.0 mg/dL (0.7-1.3) Estimated GFR (Cockcroft-Gault) 71.0 BUN/Creatinine Ratio 44 (6-20) Glucose Level 118 mg/dL (70-99) Calcium Level 7.5 mg/dL (8.5-10.1) Total Bilirubin 0.7 mg/dL (0.2-1.0) Aspartate Amino Transf (AST/SGOT) 222 U/L (15-37) Alanine Aminotransferase (ALT/SGPT) 166 U/L (16-63) Alkaline Phosphatase 373 U/L (46-116) Total Protein 5.1 g/dL (6.4-8.2) Albumin 0.7 g/dL (3.4-5.0) Albumin/Globulin Ratio 0.2 (1.0-1.7) O2 Saturation 98 % (92-99) Arterial Blood pH 7.50 (7.35-7.45) Arterial Blood pCO2 at Patient Temp 28 mmHg (35-46) Arterial Blood pO2 at Patient Temp 104 mmHg (65-108) Arterial Blood HCO3 21 mmol/L (21-28) Arterial Blood Base Excess -1 mmol/L (-3-3) FiO2 40 Microbiology 07/27/21 - Final, Complete 07/18/21 Blood Culture - Final, Complete NO GROWTH AFTER 5 DAYS Medications Current Medications Ceftriaxone Sodium (Rocephin) 2 gm Q24H IVP Last administered on 07/13/21at 06:30; Start 07/12/21 at 07:00; Stop 07/13/21 at 09:46; Status DC Metronidazole 100 ml @ 100 mls/hr Q8HRS IV Last administered on 07/13/21at 06:15; Start 07/12/21 at 14:00; Stop 07/13/21 at 09:46; Status DC Morphine Sulfate (Morphine Sulfate) 4 mg PRN Q4HRS PRN IVP SEVERE PAIN 7-10 Last administered on 07/12/21at 06:59; Start 07/12/21 at 06:15; Stop 07/12/21 at 13:52; Status DC Ondansetron HCl (Zofran) 4 mg PRN Q4HRS PRN IVP NAUSEA/VOMITING 1ST CHOICE Last administered on 07/12/21at 07:02; Start 07/12/21 at 06:15; Stop 07/12/21 at 13:03; Status DC Sodium Chloride 1,000 ml @ 150 mls/hr Q6H40M IV Last administered on 07/16/21at 04:36; Start 07/12/21 at 06:15; Stop 07/16/21 at 10:01; Status DC Piperacillin Sod/ Tazobactam Sod 2.25 gm/Sodium Chloride 50 ml @ 100 mls/hr Q8HRS IV Last administered on 07/13/21at 05:37; Start 07/12/21 at 14:00; Stop 07/13/21 at 11:36; Status DC Propofol (Diprivan) 200 mg STK-MED ONCE IV ; Start 07/12/21 at 07:43; Stop 07/12/21 at 07:44; Status DC Ondansetron HCl (Zofran) 4 mg STK-MED ONCE .ROUTE ; Start 07/12/21 at 07:43; Stop 07/12/21 at 07:44; Status DC Dexamethasone Sodium Phosphate (Decadron) 4 mg STK-MED ONCE .ROUTE ; Start 07/12/21 at 07:43; Stop 07/12/21 at 07:44; Status DC Succinylcholine Chloride (Anectine) 200 mg STK-MED ONCE .ROUTE ; Start 07/12/21 at 07:44; Stop 07/12/21 at 07:44; Status DC Neostigmine [place] (Neostigmine Methylsulfate) 5 mg STK-MED ONCE .ROUTE ; Start 07/12/21 at 07:44; Stop 07/12/21 at 07:44; Status DC Rocuronium [place] (Zemuron) 50 mg STK-MED ONCE .ROUTE ; Start 07/12/21 at 0 7:44; Stop 07/12/21 at 07:44; Status DC Fentanyl Citrate (Fentanyl 2ml Vial) 100 mcg STK-MED ONCE .ROUTE ; Start 07/12/21 at 07:44; Stop 07/12/21 at 07:44; Status DC Midazolam HCl (Versed) 2 mg STK-MED ONCE .ROUTE ; Start 07/12/21 at 07:44; Stop 07/12/21 at 07:44; Status DC Glycopyrrolate (Robinul) 1 mg STK-MED ONCE .ROUTE ; Start 07/12/21 at 07:45; Stop 07/12/21 at 07:45; Status DC Fentanyl Citrate (Fentanyl 2ml Vial) 25 mcg PRN Q5MIN PRN IVP MILD PAIN 1-3; Start 07/12/21 at 08:00; Stop 07/13/21 at 07:59; Status DC Fentanyl Citrate (Fentanyl 2ml Vial) 50 mcg PRN Q5MIN PRN IVP MODERATE PAIN 4- 6; Start 07/12/21 at 08:00; Stop 07/13/21 at 07:59; Status DC Morphine Sulfate (Morphine Sulfate) 1 mg PRN Q10MIN PRN IVP SEVERE PAIN 7-10; Start 07/12/21 at 08:00; Stop 07/13/21 at 07:59; Status DC Ringer's Solution 1,000 ml @ 30 mls/hr Q24H IV ; Start 07/12/21 at 08:00; Stop 07/12/21 at 19:59; Status DC Hydromorphone HCl (Dilaudid) 0.5 mg PRN Q10MIN PRN IVP SEVERE PAIN 7-10, 2nd CHOICE; Start 07/12/21 at 08:00; Stop 07/13/21 at 07:59; Status DC Prochlorperazine Edisylate (Compazine) 5 mg PACU PRN PRN IVP NAUSEA, MRX1; Start 07/12/21 at 08:00; Stop 07/13/21 at 07:59; Status DC Albumin Human 500 ml @ 125 mls/hr 1X ONCE IV Last administered on 07/12/21at 08:17; Start 07/12/21 at 08:15; Stop 07/12/21 at 12:14; Status DC Etomidate (Amidate) 20 mg STK-MED ONCE IV ; Start 07/12/21 at 08:30; Stop 07/12/21 at 08:30; Status DC Rocuronium [place] (Zemuron) 100 mg STK-MED ONCE .ROUTE ; Start 07/12/21 at 09:34; Stop 07/12/21 at 09:34; Status DC Phenylephrine HCl (PHENYLEPHRINE in 0.9% NACL PF) 1 mg STK-MED ONCE IV ; Start 07/12/21 at 10:27; Stop 07/12/21 at 10:27; Status DC Phenylephrine HCl (Lionel-Synephrine Inj) 10 mg STK-MED ONCE .ROUTE ; Start 07/12/21 at 10:27; Stop 07/12/21 at 10:27; Status DC Ephedrine Sulfate (ePHEDrine PF IN SALINE SYRINGE) 50 mg STK-MED ONCE IV ; Start 07/12/21 at 10:27; Stop 07/12/21 at 10:27; Status DC Albumin Human 500 ml @ As Directed STK-MED ONCE IV ; Start 07/12/21 at 11:15; Stop 07/12/21 at 11:16; Status DC Albumin Human 500 ml @ 500 mls/hr 1X ONCE IV Last administered on 07/12/21at 13:40; Start 07/12/21 at 11:30; Stop 07/12/21 at 12:29; Status DC Phenylephrine HCl (Lionel-Synephrine Inj) 10 mg STK-MED ONCE .ROUTE ; Start 2 at 11:54; Stop 07/12/21 at 11:55; Status DC Cefoxitin Sodium (Mefoxin) 1 gm Q6H IVP Last administered on 07/13/21at 01:47; Start 07/12/21 at 14:00; Stop 07/13/21 at 02:01; Status DC Famotidine (Pepcid Vial) 20 mg QHS IVP Last administered on 07/28/21at 21:02; Start 07/12/21 at 21:00 Enoxaparin Sodium (Lovenox 30mg Syringe) 30 mg Q24H SQ Last administered on 07/15/21at 21:04; Start 07/12/21 at 21:00; Stop 07/16/21 at 09:07; Status DC Sodium Chloride (Normal Saline Flush) 3 ml QSHIFT PRN IV AFTER MEDS AND BLOOD DRAWS; Start 07/12/21 at 12:15 Ringer's Solution 1,000 ml @ 100 mls/hr Q10H IV Last administered on 07/13/21at 10:39; Start 07/12/21 at 12:15; Stop 07/13/21 at 19:33; Status DC Naloxone HCl (Narcan) 0.4 mg PRN Q2MIN PRN IV SEE INSTRUCTIONS; Start 07/12/21 at 12:15 Sodium Chloride 1,000 ml @ 25 mls/hr Q24H IV ; Start 07/12/21 at 12:15; Stop 07/13/21 at 19:33; Status DC Morphine Sulfate (Morphine Sulfate) 1 mg PRN Q1HR PRN IV MODERATE PAIN; Start 07/12/21 at 12:15; Stop 07/12/21 at 13:51; Status DC Ondansetron HCl (Zofran) 4 mg PRN Q6HRS PRN IVP NAUESA, 1ST CHOICE; Start 07/12/21 at 12:15 Midazolam HCl 100 ml @ 1 mls/hr CONT PRN IV SEE PROTOCOL Last administered on 07/12/21at 16:55; Start 07/12/21 at 12:45; Stop 07/16/21 at 19:27; Status DC Propofol 100 ml @ 1.74 mls/hr CONT PRN IV PER PROTOCOL; Start 07/12/21 at 12:45; Stop 07/16/21 at 19:27; Status DC Glycerin/ Hypromellose/ Polyethylene (Artificial Tears) 1 drop PRN Q1HR PRN OU DRY EYE; Start 07/12/21 at 12:45 Albumin Human 500 ml @ 125 mls/hr 1X ONCE IV ; Start 07/12/21 at 12:45; Stop 07/12/21 at 16:44; Status DC Fentanyl Citrate 30 ml @ 0 mls/hr CONT PRN IV SEE PROTOCOL Last administered on 07/12/21at 23:40; Start 07/12/21 at 13:15; Stop 07/13/21 at 10:16; Status DC Sodium Bicarbonate (Sodium Bicarb Adult 8.4% Syr) 50 meq STK-MED ONCE .ROUTE ; Start 07/12/21 at 13:28; Stop 07/12/21 at 13:28; Status DC Sodium Bicarbonate (Sodium Bicarb Adult 8.4% Syr) 50 meq 1X ONCE IV Last administered on 07/12/21at 13:40; Start 07/12/21 at 13:45; Stop 07/12/21 at 13:46; Status DC Sodium Bicarbonate 150 meq/Dextrose 1,150 ml @ 75 mls/hr [id number] IV Last administered on 07/13/21at 05:37; Start 07/12/21 at 14:30; Stop 07/13/21 at 19:34; Status DC Norepinephrine Bitartrate 8 mg/ Dextrose 258 ml @ 11.204 mls/ hr CONT PRN IV PER PROTOCOL Last administered on 07/14/21at 23:22; Start 07/12/21 at 13:45; Stop 07/15/21 at 03:14; Status DC Fentanyl Citrate (Fentanyl 2ml Vial) 50 mcg 1X ONCE IVP ; Start 07/12/21 at 14:15; Stop 07/12/21 at 14:16; Status DC Sodium Bicarbonate (Sodium Bicarb Adult 8.4% Syr) 50 meq STK-MED ONCE .ROUTE ; Start 07/12/21 at 21:15; Stop 07/12/21 at 21:15; Status DC Sevoflurane (Ultane) 60 ml STK-MED ONCE IH ; Start 07/12/21 at 21:15; Stop 07/12/21 at 21:15; Status DC Digoxin (Lanoxin) 500 mcg 1X ONCE IV Last administered on 07/13/21at 03:22; Start 07/13/21 at 03:30; Stop 07/13/21 at 03:31; Status DC Fentanyl Citrate 55 ml @ 1 mls/hr CONT PRN IV SEE PROTOCOL Last administered on 07/15/21at 06:00; Start 07/13/21 at 10:30; Stop 07/16/21 at 19:27; Status DC Piperacillin Sod/ Tazobactam Sod 2.25 gm/Sodium Chloride 50 ml @ 100 mls/hr Q6HRS IV Last administered on 07/18/21at 17:10; Start 07/13/21 at 12:00; Stop 07/18/21 at 18:02; Status DC Propofol (Diprivan) 1,000 mg STK-MED ONCE IV ; Start 07/12/21 at 13:00; Stop 07/13/21 at 12:22; Status DC Digoxin (Lanoxin) 500 mcg 1X ONCE IV Last administered on 07/14/21at 04:40; Start 07/14/21 at 04:30; Stop 07/14/21 at 04:31; Status DC Magnesium Sulfate 50 ml @ 25 mls/hr 1X ONCE IV Last administered on 07/14/21at 15:22; Start 07/14/21 at 12:30; Stop 07/14/21 at 14:29; Status DC Sodium Chloride 1,000 ml @ 1,000 mls/hr 1X ONCE IV Last administered on 07/14/21at 12:15; Start 07/14/21 at 12:30; Stop 07/14/21 at 13:29; Status DC Sodium Chloride 1,000 ml @ 1,000 mls/hr 1X ONCE IV Last administered on 07/14/21at 15:42; Start 07/14/21 at 15:30; Stop 07/14/21 at 16:29; Status DC Sodium Chloride 500 ml @ 500 mls/hr 1X ONCE IV Last administered on 07/14/21at 12:15; Start 07/14/21 at 15:30; Stop 07/14/21 at 16:29; Status DC Norepinephrine Bitartrate 32 mg/ Dextrose 250 ml @ 3.192 mls/ hr CONT PRN IV SEE I/O RECORD Last administered on 07/25/21at 06:16; Start 07/15/21 at 03:30 Furosemide (Lasix) 20 mg 1X ONCE IVP Last administered on 07/15/21at 18:29; Start 07/15/21 at 10:00; Stop 07/15/21 at 10:01; Status DC Info (Tpn Per Pharmacy) 1 each PRN DAILY PRN MC SEE COMMENTS Last administered on 07/28/21at 12:27; Start 07/15/21 at 10:30 Sodium Chloride 90 meq/Potassium Chloride 50 meq/ Potassium Phosphate 13.6 mmol/Magnesium Sulfate 10 meq/ Multivitamins 10 ml/Zinc/Copper/ Manganese/ Selenium 1 ml/ Total Parenteral Nutrition/Amino Acids/Dextrose/ Fat Emulsion Intravenous 1,512 ml @ 63 mls/hr TPN CONT IV Last administered on 07/15/21at 22:05; Start 07/15/21 at 22:00; Stop 07/16/21 at 21:59; Status DC Furosemide (Lasix) 20 mg 1X ONCE IVP ; Start 07/15/21 at 18:30; Stop 07/15/21 at 18:31; Status DC Enoxaparin Sodium (Lovenox 40mg Syringe) 40 mg Q24H SQ Last administered on 07/23/21at 21:26; Start 07/16/21 at 21:00; Stop 07/24/21 at 06:59; Status DC Sodium Chloride 70 meq/Potassium Chloride 50 meq/ Potassium Phosphate 20 mmol/ Magnesium Sulfate 10 meq/ Multivitamins 10 ml/Zinc/Copper/ Manganese/ Selenium 1 ml/ Total Parenteral Nutrition/Amino Acids/Dextrose/ Fat Emulsion Intravenous 1,512 ml @ 63 mls/hr TPN CONT IV ; Start 07/16/21 at 22:00; Stop 07/16/21 at 13:33; Status DC Sodium Chloride 70 meq/Potassium Chloride 50 meq/ Potassium Phosphate 20 mmol/ Magnesium Sulfate 10 meq/ Multivitamins 10 ml/Zinc/Copper/ Manganese/ Selenium 1 ml/ Total Parenteral Nutrition/Amino Acids/Dextrose/ Fat Emulsion Intravenous 1,482 ml @ 61.75 mls/ hr TPN CONT IV ; Start 07/16/21 at 22:00; Stop 07/16/21 at 14:03; Status DC Sodium Chloride 70 meq/Potassium Chloride 50 meq/ Potassium Phosphate 20 mmol/ Magnesium Sulfate 10 meq/ Multivitamins 10 ml/Zinc/Copper/ Manganese/ Selenium 1 ml/ Total Parenteral Nutrition/Amino Acids/Dextrose/ Fat Emulsion Intravenous 1,512 ml @ 63 mls/hr TPN CONT IV Last administered on 07/16/21at 21:38; Start 07/16/21 at 22:00; Stop 07/17/21 at 21:59; Status DC Fentanyl Citrate (Fentanyl 2ml Vial) 25 mcg PRN Q1HR PRN IVP PAIN Last administered on 07/23/21at 14:06; Start 07/16/21 at 19:30; Stop 07/24/21 at 21:50; Status DC Labetalol HCl (Normodyne Iv Push) 10 mg PRN Q4HRS PRN IVP HYPERTENSION; Start 07/17/21 at 09:15 Potassium Phosphate 15 mmol/ Sodium Chloride 105 ml @ 52.5 mls/hr 1X ONCE IV Last administered on 07/17/21at 12:32; Start 07/17/21 at 12:00; Stop 07/17/21 at 13:59; Status DC Sodium Chloride 70 meq/Potassium Chloride 50 meq/ Potassium Phosphate 25 mmol/ Magnesium Sulfate 10 meq/ Multivitamins 10 ml/Zinc/Copper/ Manganese/ Selenium 1 ml/ Total Parenteral Nutrition/Amino Acids/Dextrose/ Fat Emulsion Intravenous 1,512 ml @ 63 mls/hr TPN CONT IV Last administered on 07/17/21at 20:22; Start 07/17/21 at 22:00; Stop 07/18/21 at 21:59; Status DC Furosemide (Lasix) 40 mg 1X ONCE IVP Last administered on 07/17/21at 12:28; Start 07/17/21 at 11:45; Stop 07/17/21 at 11:46; Status DC Sodium Acetate 70 meq/Potassium Chloride 50 meq/ Potassium Phosphate 22 mmol/ Magnesium Sulfate 8 meq/ Multivitamins 10 ml/Zinc/Copper/ Manganese/ Selenium 1 ml/ Total Parenteral Nutrition/Amino Acids/Dextrose/ Fat Emulsion Intravenous 1,512 ml @ 63 mls/hr TPN CONT IV Last administered on 07/18/21at 21:44; Start 07/18/21 at 22:00; Stop 07/19/21 at 21:59; Status DC Meropenem 500 mg/ Sodium Chloride 50 ml @ 100 mls/hr Q8HRS IV Last administered on 07/29/21at 05:59; Start 07/18/21 at 22:00 Daptomycin 450 mg/ Sodium Chloride 50 ml @ 100 mls/hr Q24H IV Last administered on 07/25/21at 20:10; Start 07/18/21 at 20:00; Stop 07/26/21 at 10:20; Status DC Sodium Chloride 40 meq/Potassium Acetate 50 meq/ Potassium Phosphate 22 mmol/ Magnesium Sulfate 8 meq/ Multivitamins 10 ml/Zinc/Copper/ Manganese/ Selenium 1 ml/ Total Parenteral Nutrition/Amino Acids/Dextrose/ Fat Emulsion Intravenous 1,680 ml @ 70 mls/hr TPN CONT IV Last administered on 07/19/21at 21:40; Start 07/19/21 at 22:00; Stop 07/20/21 at 21:59; Status DC Linezolid/Dextrose 300 ml @ 300 mls/hr Q12HR IV Last administered on 07/29/21at 07:54; Start 07/19/21 at 14:00 Sodium Chloride 40 meq/Potassium Acetate 50 meq/ Potassium Phosphate 22 mmol/ Magnesium Sulfate 6 meq/ Multivitamins 10 ml/Zinc/Copper/ Manganese/ Selenium 1 ml/ Total Parenteral Nutrition/Amino Acids/Dextrose/ Fat Emulsion Intravenous 1,680 ml @ 70 mls/hr TPN CONT IV Last administered on 07/20/21at 22:14; Start 07/20/21 at 22:00; Stop 07/21/21 at 21:59; Status DC Sodium Chloride 40 meq/Potassium Acetate 50 meq/ Potassium Phosphate 26 mmol/ Magnesium Sulfate 6 meq/ Multivitamins 10 ml/Zinc/Copper/ Manganese/ Selenium 1 ml/ Total Parenteral Nutrition/Amino Acids/Dextrose/ Fat Emulsion Intravenous 1,680 ml @ 70 mls/hr TPN CONT IV ; Start 07/21/21 at 22:00; Stop 07/21/21 at 08:54; Status DC Sodium Chloride 40 meq/Potassium Acetate 60 meq/ Potassium Phosphate 30 mmol/ Magnesium Sulfate 6 meq/ Multivitamins 10 ml/Zinc/Copper/ Manganese/ Selenium 1 ml/ Total Parenteral Nutrition/Amino Acids/Dextrose/ Fat Emulsion Intravenous 1,680 ml @ 70 mls/hr TPN CONT IV Last administered on 07/21/21at 22:18; Start 07/21/21 at 22:00; Stop 07/22/21 at 22:00; Status DC Sodium Chloride 40 meq/Potassium Acetate 60 meq/ Potassium Phosphate 30 mmol/ Magnesium Sulfate 6 meq/ Multivitamins 10 ml/Zinc/Copper/ Manganese/ Selenium 1 ml/ Total Parenteral Nutrition/Amino Acids/Dextrose/ Fat Emulsion Intravenous 1,680 ml @ 70 mls/hr TPN CONT IV Last administered on 07/22/21at 23:29; Start 07/22/21 at 22:00; Stop 07/23/21 at 21:59; Status DC Sodium Chloride 40 meq/Potassium Acetate 50 meq/ Potassium Phosphate 15 mmol/ Magnesium Sulfate 4 meq/ Multivitamins 10 ml/Zinc/Copper/ Manganese/ Selenium 1 ml/ Total Parenteral Nutrition/Amino Acids/Dextrose/ Fat Emulsion Intravenous 1,680 ml @ 70 mls/hr TPN CONT IV Last administered on 07/23/21at 22:24; Start 07/23/21 at 22:00; Stop 07/24/21 at 21:59; Status DC Sodium Chloride 40 meq/Potassium Acetate 50 meq/ Potassium Phosphate 15 mmol/ Magnesium Sulfate 4 meq/ Multivitamins 10 ml/Zinc/Copper/ Manganese/ Selenium 1 ml/ Total Parenteral Nutrition/Amino Acids/Dextrose/ Fat Emulsion Intravenous 1,680 ml @ 70 mls/hr TPN CONT IV Last administered on 07/24/21at 22:11; Start 07/24/21 at 22:00; Stop 07/25/21 at 21:59; Status DC Fentanyl Citrate 30 ml @ 0 mls/hr CONT PRN IV SEE PROTOCOL Last administered on 07/26/21at 00:14; Start 07/24/21 at 12:30 Propofol 100 ml @ 2.289 mls/ hr CONT PRN IV PER PROTOCOL; Start 07/24/21 at 12:30 Midazolam HCl 100 ml @ 1 mls/hr CONT PRN IV SEE PROTOCOL Last administered on 07/24/21at 15:45; Start 07/24/21 at 13:00 Bupivacaine HCl/ Epinephrine Bitart (Sensorcain-Epi 0.5% Kit) 30 ml STK-MED ONCE INJ Last administered on 07/24/21at 13:44; Start 07/24/21 at 13:44; Stop 07/24/21 at 13:58; Status DC Sodium Chloride 40 meq/Potassium Acetate 50 meq/ Potassium Phosphate 15 mmol/ Magnesium Sulfate 4 meq/ Multivitamins 10 ml/Zinc/Copper/ Manganese/ Selenium 1 ml/ Total Parenteral Nutrition/Amino Acids/Dextrose/ Fat Emulsion Intravenous 1,680 ml @ 70 mls/hr TPN CONT IV Last administered on 07/25/21at 21:42; Start 07/25/21 at 22:00; Stop 07/26/21 at 21:59; Status DC Propofol (Diprivan) 200 mg STK-MED ONCE IV ; Start 07/24/21 at 12:49; Stop 07/25/21 at 14:54; Status DC Rocuronium [place] (Zemuron) 50 mg STK-MED ONCE .ROUTE ; Start 07/24/21 at 12:49; Stop 07/25/21 at 14:54; Status DC Fentanyl Citrate (Fentanyl 2ml Vial) 100 mcg STK-MED ONCE .ROUTE ; Start 07/24/21 at 12:49; Stop 07/25/21 at 14:54; Status DC Cellulose (Surgicel Fibrillar 1x2) 1 each STK-MED ONCE .ROUTE ; Start 07/24/21 at 12:52; Stop 07/25/21 at 14:55; Status DC Bupivacaine HCl/ Epinephrine Bitart (Sensorcain-Epi 0.5% Kit) 30 ml STK-MED ONCE .ROUTE ; Start 07/24/21 at 12:53; Stop 07/25/21 at 14:55; Status DC Phenylephrine HCl (PHENYLEPHRINE in 0.9% NACL PF) 1 mg STK-MED ONCE IV ; Start 07/24/21 at 13:35; Stop 07/25/21 at 14:55; Status DC Sodium Chloride 500 ml @ 500 mls/hr 1X ONCE IV Last administered on 07/26/21at 07:57; Start 07/26/21 at 07:45; Stop 07/26/21 at 08:44; Status DC Fentanyl Citrate (Fentanyl 2ml Vial) 25 mcg PRN Q2HR PRN IVP PAIN Last administered on 07/28/21at 22:42; Start 07/26/21 at 08:45 Furosemide (Lasix) 20 mg 1X ONCE IVP Last administered on 07/26/21at 09:06; Start 07/26/21 at 09:00; Stop 07/26/21 at 09:01; Status DC Sodium Chloride 40 meq/Potassium Acetate 30 meq/ Potassium Phosphate 15 mmol/ Magnesium Sulfate 4 meq/ Multivitamins 10 ml/Zinc/Copper/ Manganese/ Selenium 1 ml/ Total Parenteral Nutrition/Amino Acids/Dextrose/ Fat Emulsion Intravenous 1,680 ml @ 70 mls/hr TPN CONT IV ; Start 07/26/21 at 22:00; Stop 07/26/21 at 13:11; Status DC Sodium Chloride 40 meq/Potassium Acetate 40 meq/ Potassium Phosphate 10 mmol/ Magnesium Sulfate 4 meq/ Multivitamins 10 ml/Zinc/Copper/ Manganese/ Selenium 1 ml/ Total Parenteral Nutrition/Amino Acids/Dextrose/ Fat Emulsion Intravenous 1,680 ml @ 70 mls/hr TPN CONT IV Last administered on 07/26/21at 22:00; Start 07/26/21 at 22:00; Stop 07/27/21 at 21:59; Status DC Sodium Chloride 40 meq/Potassium Acetate 30 meq/ Potassium Phosphate 10 mmol/ Magnesium Sulfate 4 meq/ Multivitamins 10 ml/Zinc/Copper/ Manganese/ Selenium 1 ml/ Total Parenteral Nutrition/Amino Acids/Dextrose/ Fat Emulsion Intravenous 1,680 ml @ 70 mls/hr TPN CONT IV Last administered on 07/27/21at 21:58; Start 07/27/21 at 22:00; Stop 07/28/21 at 21:59; Status DC Lidocaine HCl (Lidocaine 1% 20ml Vial) 10 ml PRN 1X PRN INJ SEE COMMENTS; Start 07/27/21 at 11:15; Stop 07/28/21 at 11:14; Status DC Sodium Chloride 40 meq/Potassium Acetate 15 meq/ Potassium Phosphate 10 mmol/ Magnesium Sulfate 4 meq/ Multivitamins 10 ml/Zinc/Copper/ Manganese/ Selenium 1 ml/ Potassium Chloride 15 meq/ Total Parenteral Nutrition/Amino Acids/Dextrose/ Fat Emulsion Intravenous 1,680 ml @ 70 mls/hr TPN CONT IV Last administered on 07/28/21at 22:03; Start 07/28/21 at 22:00; Stop 07/29/21 at 21:59 Active Scripts Active No Active Prescriptions or Reported Medications Vitals/I & O Vital Sign - Last 24 Hours 07/28/21 07/28/21 07/28/21 07/28/21 11:00 11:40 12:00 12:00 Temp 99.3 99.3 Pulse 72 68 Resp 24 26 B/P (MAP) 137/62 137/61 Pulse Ox 100 100 100 O2 Delivery Ventilator Ventilator Mechanical Ventilator Ventilator 07/28/21 07/28/21 07/28/21 07/28/21 12:57 13:00 14:00 15:00 Pulse 66 66 68 Resp 32 31 25 B/P (MAP) 133/60 151/66 133/83 Pulse Ox 100 100 100 100 O2 Delivery Ventilator Ventilator Ventilator Ventilator 07/28/21 07/28/21 07/28/21 07/28/21 15:26 16:00 16:00 16:01 Temp 100.1 100.1 Pulse 68 Resp 25 B/P (MAP) 133/83 Pulse Ox 100 100 O2 Delivery Ventilator Ventilator Mechanical Ventilator 07/28/21 07/28/21 07/28/21 07/28/21 17:00 17:48 18:00 19:00 Pulse 66 68 68 Resp 25 22 B/P (MAP) 123/64 122/68 114/57 Pulse Ox 100 100 100 100 O2 Delivery Ventilator Ventilator Ventilator Ventilator 07/28/21 07/28/21 07/28/21 07/28/21 20:00 20:00 20:00 21:00 Temp 99.2 99.2 Pulse 72 58 Resp 29 28 B/P (MAP) 112/57 123/50 Pulse Ox 100 100 100 O2 Delivery Mechanical Ventilator Ventilator Ventilator Ventilator 07/28/21 07/28/21 07/28/21 07/29/21 22:00 22:30 23:00 00:00 Pulse 64 63 Resp 28 28 B/P (MAP) 127/54 123/56 Pulse Ox 100 100 100 O2 Delivery Ventilator Ventilator Ventilator Mechanical Ventilator 07/29/21 07/29/21 07/29/21 07/29/21 00:01 01:00 01:00 02:00 Temp 99.4 99.4 Pulse 61 57 60 Resp 28 28 28 B/P (MAP) 114/51 114/54 120/62 Pulse Ox 100 100 100 100 O2 Delivery Ventilator Ventilator Ventilator Ventilator 07/29/21 07/29/21 07/29/21 07/29/21 03:00 03:00 04:00 04:00 Temp 99.2 99.2 Pulse 59 62 Resp 28 29 B/P (MAP) 114/49 112/56 Pulse Ox 100 100 100 O2 Delivery Ventilator Ventilator Mechanical Ventilator Ventilator 07/29/21 07/29/21 07/29/21 07/29/21 05:00 05:00 06:00 07:10 Pulse 58 55 59 Resp 24 B/P (MAP) 103/46 106/45 106/55 Pulse Ox 100 100 100 100 O2 Delivery Ventilator Ventilator Ventilator Ventilator 07/29/21 07/29/21 07/29/21 07/29/21 07:47 07:51 08:00 08:00 Temp 98.9 98.9 Pulse 58 Resp 31 B/P (MAP) 115/66 Pulse Ox 100 100 O2 Delivery Ventilator Ventilator Ventilator Mechanical Ventilator 07/29/21 09:00 Pulse 60 Resp 32 B/P (MAP) 117/56 Pulse Ox 100 O2 Delivery Ventilator Intake and Output 07/28/21 07/28/21 07/29/21 15:00 23:00 07:00 Intake Total 50 ml 1213 ml 853 ml Output Total 275 ml 635 ml 630 ml Balance -225 ml 578 ml 223 ml Justicifation of Admission Dx: Justifications for Admission: Justification of Admission Dx: Yes Sepsis: Hemodynamic Instability ROME CANTOR MD July 29, 2021 10:17
--- NOTE | 2021-07-29 10:55 | NUR ---
SS following up with discharge planning. SS reviewed pt chart and discussed with pt RN. Pt is currently on the vent. Trach in place. Pt accepted at [facility], ; fax [phone]. Bed available today. Discharge orders received and sent to [facility]. Pt will discharge today and go to [facility] at 1845 via [facility], . Packet and ambulance form placed on the chart. Pt, pt's son, and pt's RN notified.
[2021-07-29] MEDS: fentaNYL PF VIAL 100 MCG/2 ML VIAL IVP PRN ×2 (12:15→14:56)
--- NOTE | 2021-07-29 14:09 | PDOC ---
Infectious Disease Note Subjective: Subjective Patient remains on vent More alert today. Mouths a few words FiO2 40% Discussed with RN at bedside Vital Signs: Vital Signs Vital Signs Date Time Temp Pulse Resp B/P (MAP) Pulse Ox O2 Delivery O2 Flow Rate FiO2 07/29/21 13:25 100 Ventilator 07/29/21 13:01 65 18 120/60 07/29/21 12:00 98.3 98.3 Physical Exam: PHYSICAL EXAM GENERAL: Patient opens eyes. Mouths a few word HEENT: Normocephalic atraumatic anicteric, poor dentition, bacterial overgrowth improved over tongue NECK trach present LUNGS: . Decreased breath sounds. HEART: S1, S2 regular. No murmur. ABDOMEN: Postsurgical dressing in place. Dry intact, 2 drains scrotal swelling, conway in place, fecal tube present EXTREMITIES: No cyanosis, generalized anasarca SKIN: No generalized rash NEUROLOGIC: Opens eyes, alert awake, generalized weakness Subclavian IJ present since admission, clean Medications: Inpatient Meds: Medications reviewed. Objective: Assessment: 1. Perforated viscus, status post exploratory laparotomy, reduction of gastric volvulus, hiatal hernia repair, gastrostomy tube placement and duodenoscopy with tube placement done. Drains in place 2. Hypotension, requiring vasopressor support. 3. Respiratory failure, requiring ventilatory support. Pleural effusion and pulm infiltrate status post bronchoscopy cultures negative so far Sputum cultures positive for Elda likely colonization 4. Renal failure. 5. History of prostate cancer. path + with melanoma 6. Pneumonia 7. CT abdomen and pelvis with intraabdominal fluid collection could be abscess, not a candidate for IR drainage Leucocytosis fluctuates On TPN Plan: Plan of Care Merrem ,Zyvox Trend WBC Monitor labs and cultures F/U 07/18 negative so far, [facility] cultures negative CT C/A/P reviewed Gen surgery following Patient is not a candidate for IR drainage at this time cont supportive care DC subclavian line Patient is PICC line for TPN Awaiting transfer to LTAC later today Discussed with MARISOL LAYNE MD July 29, 2021 14:09
--- NOTE | 2021-07-29 15:07 | PDOC ---
SURGICAL PROGRESS NOTE DATE: 07/29/21 TIME: 15:06 Subjective Pt on vent, appears comfortable Vital Signs Vital Signs Date Time Temp Pulse Resp B/P (MAP) Pulse Ox O2 Delivery O2 Flow Rate FiO2 07/29/21 13:25 100 Ventilator 07/29/21 13:01 65 18 120/60 07/29/21 12:00 98.3 98.3 I&O Intake and Output 07/29/21 07:00 Intake Total 2116 ml Output Total 1540 ml Balance 576 ml IV Total 2116 ml Output Urine Total 1085 ml Drainage Total 455 ml General: No acute distress HEENT: Other (trach in place) Abdomen: Soft, No tenderness, Other (tubes in place) Labs Laboratory Tests Test 07/28/21 06:00 07/28/21 08:05 White Blood Count 12.6 x10^3/uL (4.0-11.0) Red Blood Count 2.89 x10^6/uL (4.30-5.70) Hemoglobin 8.4 g/dL (13.0-17.5) Hematocrit 25.4 % (39.0-53.0) Mean Corpuscular Volume 88 fL (79-100) Mean Corpuscular Hemoglobin 29 pg (25-35) Mean Corpuscular Hemoglobin Concent 33 g/dL (31-37) Red Cell Distribution Width 17.1 % (11.5-14.5) Platelet Count 318 x10^3/uL (140-400) Sodium Level 140 mmol/L (136-145) Potassium Level 4.4 mmol/L (3.5-5.1) Chloride Level 108 mmol/L (98-107) Carbon Dioxide Level 24 mmol/L (21-32) Anion Gap 8 (6-14) Blood Urea Nitrogen 44 mg/dL (8-26) Creatinine 1.0 mg/dL (0.7-1.3) Estimated GFR (Cockcroft-Gault) 71.0 BUN/Creatinine Ratio 44 (6-20) Glucose Level 118 mg/dL (70-99) Calcium Level 7.5 mg/dL (8.5-10.1) Total Bilirubin 0.7 mg/dL (0.2-1.0) Aspartate Amino Transf (AST/SGOT) 222 U/L (15-37) Alanine Aminotransferase (ALT/SGPT) 166 U/L (16-63) Alkaline Phosphatase 373 U/L (46-116) Total Protein 5.1 g/dL (6.4-8.2) Albumin 0.7 g/dL (3.4-5.0) Albumin/Globulin Ratio 0.2 (1.0-1.7) O2 Saturation 98 % (92-99) Arterial Blood pH 7.50 (7.35-7.45) Arterial Blood pCO2 at Patient Temp 28 mmHg (35-46) Arterial Blood pO2 at Patient Temp 104 mmHg (65-108) Arterial Blood HCO3 21 mmol/L (21-28) Arterial Blood Base Excess -1 mmol/L (-3-3) FiO2 40 Assessment/Plan s/p xlap, trach cont supportive care, OK to transfer to LTAC Justicifation of Admission Dx: Justifications for Admission: Justification of Admission Dx: Yes Sepsis: Hemodynamic Instability STEVEN ZENDEJAS MD July 29, 2021 15:07
--- NOTE | 2021-07-29 16:12 | NUR ---
Allergies and reactions nkda INR na BUN 44 Cr 1.0 Platelets 318 Blood culture done n blood culture results Order Verified y Consent signed y Previous PICC placement unknown Past Medical/Surgical history and current diagnosis reviewed y Patient Medical /Surgical History Related to PICC line placement History of acute/chronic renal failure Infectious Disease consult Past central line or venous access device placement Special considerations for PICC line placement Infections Severe peripheral edema PICC placement indication Caustic medication class drug usage, firer bisque kiln antibiotic usage, Multiple/ Frequent blood draws, Need for Central Venous Pressure (CVP) monitoring, Poor peripheral intravenous access ) Cleo Breen RN PICC Nurse Addendum: 07/29/21 at 1617 by CLEO BREEN RN Amended: Links added.
--- NOTE | 2021-07-29 16:15 | NUR ---
Procedure: Following complete explanation of the PICC procedure including the indications, risks, and potential complications, informed consent was obtained. The possibility for infection was discussed along with signs, symptoms, and prevention. All the questions were answered.y Written and verbal patient education was provided. y Hand hygiene performed. y Standardized central line checklist was utilized. y The patient was placed in the supine position, the arm was prepped with chlorhexidine and patient draped with maximum sterile barrier. 2 mL 1% lidocaine was infiltrated into the skin to provide local anesthesia. A thorough assessment of right upper extremity completed. Using real-time ultrasound guidance and standardized micro puncture set, the Basilic vein was punctured and a peel away sheath was placed using the modified Seldinger technique. A tip location device was used to ensure adequate catheter placement. The catheter was secured using a securement device and an antimicrobial patch was applied directly on the insertion site followed by a transparent dressing. All ports withdraw blood and flush without resistance. Patient tolerated the procedure without apparent complication(s). triple Lumen Power PICC placement successful and uncomplicated. Placement verified by EKG tip confirmation system and/or chest x-ray. Tip located in the CAJ Complications:none Addendum: 07/29/21 at 1617 by LULY AGUERO RN Amended: Links added.
--- NOTE | 2021-07-29 17:04 | NUR ---
Wound/Ostomy Care Wound Type/Assessment: Wound follow up for pressure ulcer to coccyx. Pt has DTI that is improving to coccyx. Cleansed area, painted with skin prep and covered with foam dressing. Pt is intubated at this time with trach. Pt also has skin tear to right cheek that is scabbed, a skin tech to right 3rd finger, and a wound to upper lip of unknown origin. Patient is discharging today. All wounds pictured and measured. Treatment Recommendations/Plan: Coccyx-Cullen with skin prep and cover with foam. Change every 3 days and PRN. Right cheek, right 3rd finger- paint with skin prep Upper lip- cleanse daily and apply lip balm daily Education provided: Pt unable to be educated d/t mental status Offloading surface/device: TQ2H. ICU bed, float heels Recommended Referrals/Tests: NA Discharge Recommendations for dressings: see above
--- NOTE | 2021-07-29 19:54 | NUR ---
Patient discharged to [facility] at 1940 with [facility]. VSS at time of discharge. Belongings with patient.
== END 2021-07-29 19:40 | DRG 3 ==
LOC: 1 WEST ICU 05:42
PROVIDERS: ADMIT Internal Medicine; ATTEND Internal Medicine
PROC: 0B110F4 Bypass Trachea to Cutaneous with Tracheostomy Device, Open Approach (ICD-10-PCS; 2021-07-12)
PROC: 0DS60ZZ Reposition Stomach, Open Approach (ICD-10-PCS; 2021-07-12)
PROC: 0BQT0ZZ Repair Diaphragm, Open Approach (ICD-10-PCS; 2021-07-12)
PROC: 0DBV0ZX Excision of Mesentery, Open Approach, Diagnostic (ICD-10-PCS; 2021-07-12)
PROC: 0BH17EZ Insertion of Endotracheal Airway into Trachea, Via Natural or Artificial Opening (ICD-10-PCS; 2021-07-12)
PROC: 02HV33Z Insertion of Infusion Device into Superior Vena Cava, Percutaneous Approach (ICD-10-PCS; 2021-07-12)
PROC: 0DH97UZ Insertion of Feeding Device into Duodenum, Via Natural or Artificial Opening (ICD-10-PCS; 2021-07-12)
PROC: 0DJ08ZZ Inspection of Upper Intestinal Tract, Via Natural or Artificial Opening Endoscopic (ICD-10-PCS; 2021-07-12)
PROC: 5A1955Z Respiratory Ventilation, Greater than 96 Consecutive Hours (ICD-10-PCS; principal; 2021-07-12 07:04)
PROC: 0B9J8ZX Drainage of Left Lower Lung Lobe, Via Natural or Artificial Opening Endoscopic, Diagnostic (ICD-10-PCS; 2021-07-27)
PROC: 0B978ZZ Drainage of Left Main Bronchus, Via Natural or Artificial Opening Endoscopic (ICD-10-PCS; 2021-07-27)
PROC: 02HV33Z Insertion of Infusion Device into Superior Vena Cava, Percutaneous Approach (ICD-10-PCS; 2021-07-29)
PROC: B548ZZA Ultrasonography of Superior Vena Cava, Guidance (ICD-10-PCS; 2021-07-29)
DX: A41.9 Sepsis, unspecified organism (principal); K26.5 Chronic or unspecified duodenal ulcer with perforation; K66.1 Hemoperitoneum; E43 Unspecified severe protein-calorie malnutrition; G92.8 Other toxic encephalopathy; J18.9 Pneumonia, unspecified organism; J96.01 Acute respiratory failure with hypoxia; N17.0 Acute kidney failure with tubular necrosis; R65.21 Severe sepsis with septic shock; C78.00 Secondary malignant neoplasm of unspecified lung; C90.00 Multiple myeloma not having achieved remission; E87.4 Mixed disorder of acid-base balance; G93.1 Anoxic brain damage, not elsewhere classified; J93.82 Other air leak; J98.11 Atelectasis; K55.9 Vascular disorder of intestine, unspecified; R18.8 Other ascites; C43.9 Malignant melanoma of skin, unspecified; I11.0 Hypertensive heart disease with heart failure; I50.9 Heart failure, unspecified; K21.9 Gastro-esophageal reflux disease without esophagitis; K25.9 Gastric ulcer, unspecified as acute or chronic, without hemorrhage or perforation; K31.89 Other diseases of stomach and duodenum; K42.9 Umbilical hernia without obstruction or gangrene; K44.9 Diaphragmatic hernia without obstruction or gangrene; K59.09 Other constipation; M06.9 Rheumatoid arthritis, unspecified; M85.80 Other specified disorders of bone density and structure, unspecified site; Z85.46 Personal history of malignant neoplasm of prostate; Z85.820 Personal history of malignant melanoma of skin; Z90.79 Acquired absence of other genital organ(s); Z93.4 Other artificial openings of gastrointestinal tract status; M19.90 Unspecified osteoarthritis, unspecified site
CPT/HCPCS: 31622; 36415; 36569; 36600; 70450; 71045; 71250; 74018; 74176; 80048; 80053; 81001; 82550; 82805; 82962; 83605; 83615; 83735; 84100; 84478; 85007; 85025; 85027; 86850; 86900; 86901; 87040; 87070; 87077; 87205; 88305; 88341; 88342; 93005; 94002; 94003; 94760; A4222; A4223; A4314; A4322; A4340; A4344; A4452; A4930; A6257; A7521; A7526; C1751; J0330; J0694; J0696; J0878; J1100; J1160; J1650; J1940; J2020; J2185; J2250; J2270; J2370; J2405; J2543; J2704; J2710; J3010; J3475; J3480; J3490; J7030; J7040; J7060; J7120; P9045; G0378

== ENCOUNTER 2021-08-18 13:53 | Inpatient (IN) | payer MEDICARE ==
[~2021-08-18] VITALS: Ht 162.6 cm; Wt 64.2 kg
[2021-08-18] VITALS (13 sets, daily range): BP systolic 85–138; BP diastolic 52–76
[2021-08-18] MEDS ORDERED: TPN PER PHARMACY MC PRN ×2 (14:00→14:30)
[2021-08-18] MEDS ORDERED: SINCALIDE IV ONE (14:00)
[2021-08-18] MEDS ORDERED: fentaNYL PF VIAL 100 MCG/2 ML VIAL IVP PRN (14:00)
[2021-08-18] MEDS ORDERED: NORMAL SALINE IV ONE (14:00)
[2021-08-18] MEDS ORDERED: C.DIFF MED SCREEN BY RX. MC ONE (14:30)
--- NOTE | 2021-08-18 14:57 | NUR ---
Pharmacy TPN Dosing Note S: AZEB COOMBS is a 85 year old M Currently receiving Central Continuous TPN started 07/15/21 B:Pertinent PMH: PMH Of perforated bowel w/ recent admission and s/p tracheostomy placement Height: 5 feet, 4 inches Weight: 64.2 kg Current diet: NPO LABS: *All labs received from [facility] drawn today 08/18/21 unless otherwise noted* Sodium: 136 Potassium: 4.5 Chloride: 102 Calcium: 8.2 Corrected Calcium: 9.00 Magnesium: 2.2 08/17/21 per [facility] CO2: 23 SCr: 0.77 Glucose: 128 Albumin: 3.0 08/17/21 per [facility] AST: 58 ALT: Not reported per [facility] TPN FORMULA: TPN TYPE: Central Continuous AMINO ACIDS: 100 gm DEXTROSE: 325 gm LIPIDS: 30 gm SODIUM CHLORIDE: -- mEq SODIUM ACETATE: -- mEq SODIUM PHOSPHATE: -- mmol POTASSIUM CHLORIDE: -- mEq POTASSIUM ACETATE: 40 mEq POTASSIUM PHOSPHATE: 20 mmol MAGNESIUM: 4 mEq CALCIUM: -- mEq INSULIN: -- units MULTIPLE VITAMIN: 10 ml TRACE ELEMENTS: 1 ml ml(s) TPN PLAN: -Labs from [facility] reviewed -Continue same TPN as was ordered at [facility] at this time. -CMP, Mag, Phos, Trig ordered for 08/19/21 R: Continue same TPN as was ordered at [facility] at this time. Will monitor electrolytes, glucose, and tolerance to TPN. CLOVIS CARSON, [facility], 08/18/21 [id number]
--- NOTE | 2021-08-18 16:11 | RAD ---
EXAMINATION: NM HEPATOBILIARY SCAN W/PHARM Indication: Abdomen pain TECHNIQUE: After the intravenous administration of 5.4 mCi of Tc 99m mebrofenin, imaging over the abd omen was obtained. This was followed by administration of 1.28 mcg CCK, followed by continued imaging with ejection fraction measured. FINDINGS: There is homogeneous uptake in the liver with prompt bile duct and gallbladder filling seen . Bowel activity is seen at 25 minutes. Based on further imaging and gallbladder area of interest activity measurements after the administrat ion of CCK, the gallbladder ejection fraction is estimated at 5%. IMPRESSION: 1. Normal hepatobiliary uptake and gallbladder filling. 2. Biliary dyskinesia with decreased gallbladder ejection fraction of 5 percent. Electronically signed by: Barry Hooper MD (08/18/2021 4:08 PM) [id number]
[2021-08-18] MEDS ORDERED: ONDANSETRON PF 4 MG/2 ML VIAL. IVP PRN (16:45)
[2021-08-18] MEDS ORDERED: LABETALOL 20 MG/4 ML DISP.SYRIN. IVP PRN (16:45)
--- NOTE | 2021-08-18 16:49 | NUR ---
Patient arrived on unit at 1310 via EMS personnel from [facility]. Patient drowsy, will open eyes to stimulation and wave arms, but no other purposeful movement neurologically. Received orders from Dr. Puckett regarding medications and consults. Patient then transferred to [facility] and back with no complications. Dr. Phoenix aware of consult, order received to get consent for a bilateral thoracentesis tomorrow, 08/19. Patient's son aware of admission, came to bedside, clarified any new changes including code status change to DNR.
[2021-08-18] MEDS ORDERED: ALTEPLASE 2 MG VIAL INT CAT ONE (18:15)
[2021-08-18 18:20] LABS: BACTERIA,URINE FEW /HPF (0-FEW)
[2021-08-18 18:21] LABS: AMORPHOUS SEDIMENT,UR PRESENT /HPF; HYALINE CASTS, URINE OCCASIONAL /HPF
[2021-08-18] MEDS ORDERED: ACETAMINOPHEN 650 MG SUPP.RECT. PR PRN (18:30)
[2021-08-18] MEDS ORDERED: DIGOXIN IV 500 MCG/2 ML AMPUL. IV ONE (19:15)
[2021-08-18] MEDS ORDERED: IPRATRPIUM/ALBUTEROL 0.5/2.5MG 3 ML NEBU. NEB SCH (20:00)
[2021-08-18] MEDS ORDERED: ACETYLCYSTEINE 20% for RESP TX 600 MG/3 ML. NEB SCH (20:00)
[2021-08-18] MEDS ORDERED: PANTOPRAZOLE IV PUSH 40 MG VIAL. IVP SCH (21:00)
[2021-08-18 21:50] LABS: PROTHROMBIN TIME PATIENT 16.2 SEC (11.7-14.0)
[2021-08-18] MEDS ORDERED: DEXTROSE 70% IV SCH (22:00)
[2021-08-18] MEDS ORDERED: TOTAL PARENTERAL NUTRITION IV SCH (22:00)
[2021-08-18] MEDS ORDERED: [UNRECOGNIZED DRUG - OTHER] IV SCH (22:00)
[2021-08-18] MEDS ORDERED: AMINO ACID IV SCH (22:00)
== END 2021-08-19 | DRG 871 ==
LOC: 1 WEST ICU 13:53
PROVIDERS: ADMIT Internal Medicine; ATTEND Internal Medicine
PROC: 5A1945Z Respiratory Ventilation, 24-96 Consecutive Hours (ICD-10-PCS; 2021-08-18)
PROC: 0W9B3ZZ Drainage of Left Pleural Cavity, Percutaneous Approach (ICD-10-PCS; principal; 2021-08-19)
PROC: 0W993ZZ Drainage of Right Pleural Cavity, Percutaneous Approach (ICD-10-PCS; 2021-08-19)
PROC: 0WBH3ZX Excision of Retroperitoneum, Percutaneous Approach, Diagnostic (ICD-10-PCS; 2021-08-19)
PROC: 02HV33Z Insertion of Infusion Device into Superior Vena Cava, Percutaneous Approach (ICD-10-PCS; 2021-08-19)
DX: A41.9 Sepsis, unspecified organism (principal); J96.01 Acute respiratory failure with hypoxia; E43 Unspecified severe protein-calorie malnutrition; G93.41 Metabolic encephalopathy; J90 Pleural effusion, not elsewhere classified; G93.49 Other encephalopathy; C79.9 Secondary malignant neoplasm of unspecified site; Z68.24 Body mass index [BMI] 24.0-24.9, adult; Z66 Do not resuscitate; I10 Essential (primary) hypertension; K21.9 Gastro-esophageal reflux disease without esophagitis; Z85.46 Personal history of malignant neoplasm of prostate; K26.9 Duodenal ulcer, unspecified as acute or chronic, without hemorrhage or perforation; K31.89 Other diseases of stomach and duodenum
CPT/HCPCS: 36415; 78227; 81001; 85610; 94002; 94640; A9537; C9113; J1160; J2805; J2997; J3010; G0378